=== PATIENT | female | born 1955 | race Caucasian/White ===

== ENCOUNTER 2019-12-26 19:36 | Observation (INO) ==
[2019-12-26 20:13] LABS: Basophils # (auto) 0.01 K/uL (0-0.2); Basophils % (auto) 0.2 %; Eosinophils # (auto) 0.06 K/uL (0-0.5); Eosinophils % (auto) 1.2 %; Hemoglobin 11.3 g/dL (12.0-16.0); Immature Granulocytes # (auto) 0.03 K/uL (0.00-0.02); Immature Granulocytes % (auto) 0.6 %; Lymphocytes # (auto) 1.78 K/uL (1.2-3.4); Lymphocytes % (auto) 34.6 %; Mean Corpuscular Hemoglobin 30.1 pg (25-34); Mean Corpuscular Hgb Conc 32.3 g/dL (32-36); Mean Corpuscular Volume 93.3 fL (80-100); Mean Platelet Volume 9.8 fL (7.4-10.4); Monocytes # (auto) 0.43 K/uL (0.11-0.59); Monocytes % (auto) 8.3 %; Neutrophils # (auto) 2.84 K/uL (1.4-6.5); Neutrophils % (auto) 55.1 %; Platelet Count 198 K/uL (130-400); RDW Coefficient of Variation 12.6 % (11.5-14.5); RDW Standard Deviation 42.5 fL (36.4-46.3); Red Blood Count 3.75 M/uL (4.2-5.4); White Blood Count 5.15 K/uL (4.8-10.8)
[2019-12-26 20:32] LABS: BUN Creatinine Ratio 20.7 (10-20); Blood Urea Nitrogen 21 mg/dl (7-18); Calcium 9.1 mg/dl (8.5-10.1); Carbon Dioxide 31 mmol/L (21-32); Chloride 103 mmol/L (98-107); Creatinine Clr Calc Pharmacy 60.4 ml/min; Est GFR (African American) 69.9; Est GFR (Non-African American) 60.3; Glucose 255 mg/dl (70-99); Lipase 89 U/L (73-393); Potassium 4.7 mmol/L (3.5-5.1); Sodium 136 mmol/L (136-145)
[2019-12-26 20:36] LABS: Troponin I < 0.015 ng/ml (0-0.045)
[2019-12-26 20:39] LABS: Partial Thromboplastin Ratio 0.8; Partial Thromboplastin Time 23.5 Seconds (21.0-31.0); Prothrombin Time 10.3 Seconds (9.0-12.0)
--- NOTE | 2019-12-26 23:33 | Emergency Department Note ---
History of Present Illness General Chief Complaint: Cardiac Assessment Stated Complaint: HEART ATTACK - PAIN IN L ARM - FEET/ANKLES SWOLLEN Time Seen by Provider: 12/26/19 19:48 History of Present Illness Provider Complaint: chest pain Onset (ago): day(s) 5 Duration: intermittent Onset: during rest Pain Location: substernal Pain Radiation: LUE Severity: moderate Current Pain Intensity: 0 Quality: + other (Pressure and throbbing) Relieved By: + rest Exacerbated By: + exertion Context: no recent illness, no recent surgery, no recent travel, no trauma/injury, no new medications and no history of DVT/PE Associated symptoms: + dyspnea; no syncope, no fever, no cough and no leg swelling Home Medications Home Medications Medication Instructions Recorded Confirmed Type metformin 1,000 mg PO BIDM #0 06/30/09 12/26/19 History gabapentin 300 mg PO TID 02/06/18 12/26/19 History linagliptin [Tradjenta] 5 mg PO DAILY 02/06/18 12/26/19 History sertraline 100 mg PO DAILY 02/06/18 12/26/19 History atorvastatin 80 mg PO DAILY 03/29/18 12/26/19 History lisinopril 10 mg PO DAILY 03/29/18 12/26/19 History metoprolol tartrate 50 mg PO DAILY 03/29/18 12/26/19 History aspirin 81 mg PO DAILY 12/26/19 12/26/19 History famotidine 20 mg PO BID 12/26/19 12/26/19 History insulin glargine [Lantus Solostar 10 unit SUBCUT DIRECTED 12/26/19 12/26/19 History U-100 Insulin] oxybutynin chloride 5 mg PO BID 12/26/19 12/26/19 History Allergies Allergy/AdvReac Type Severity Reaction Status Date / Time aspirin Allergy Mild UNK Unverified 03/29/18 13:30 hydrocodone Allergy Mild UNK Unverified 03/29/18 13:30 milk Allergy Unknown Unverified 12/26/19 21:19 pine Allergy Unknown Uncoded 12/26/19 21:19 Past Med/Surg History Medical History (Updated 12/26/19 @ 23:33 by Samson Richardson) Arthritis Depression Diabetes Surgical History (Updated 12/26/19 @ 23:29 by Samson Richardson) No pertinent past surgical history Family History Other Deep vein thrombosis Social History Smoking Status: Never smoker Preferred Language: Russian Communication Ability: Effective Visual Impairment: No Limitations Hearing Ability: Normal marital status: Current Living Situation: Family Current Living Situation Comment: The patient states that she lives with her child and their fianc. current occupational status: unemployed Feels Safe at Home: Yes Review of Systems A total of 10 systems reviewed and were otherwise negative Physical Exam Vital Signs Vital Signs - 24 hr 12/26/19 19:40 12/26/19 20:02 12/26/19 20:35 Temperature 36.8 C Temperature Source Oral Pulse Rate 81 Pulse Rate [Apical] 82 67 Pulse Rate from SpO2 Sensor Respiratory Rate 18 17 16 Respiratory Effort / Characteristics Non-Labored Spontaneous Non-Labored Spontaneous Respiratory Depth Normal Normal Respiratory Pattern Regular Blood Pressure 170/92 H Blood Pressure [Left Arm] 166/98 H 170/80 H Blood Pressure Mean 118 Blood Pressure Mean [Left Arm] 120 110 Pulse Oximetry 97 97 96 Oxygen Delivery Method Room Air Room Air Room Air Sepsis Recent Fever Within 48 Hours No Sepsis New/Unexplained Change in Mental Status N/A Sepsis Action Taken by Nursing No Action Required 12/26/19 21:00 12/26/19 21:30 12/26/19 22:00 Temperature Temperature Source Pulse Rate 83 68 67 Pulse Rate [Apical] Pulse Rate from SpO2 Sensor 83 67 68 Respiratory Rate 15 14 21 Respiratory Effort / Characteristics Respiratory Depth Respiratory Pattern Blood Pressure 167/99 H 170/112 H 168/88 H Blood Pressure [Left Arm] Blood Pressure Mean 126 152 106 Blood Pressure Mean [Left Arm] Pulse Oximetry 97 97 97 Oxygen Delivery Method Room Air Room Air Room Air Sepsis Recent Fever Within 48 Hours Sepsis New/Unexplained Change in Mental Status Sepsis Action Taken by Nursing 12/26/19 22:31 12/26/19 23:00 Temperature Temperature Source Pulse Rate 61 85 Pulse Rate [Apical] Pulse Rate from SpO2 Sensor 62 85 Respiratory Rate 18 20 Respiratory Effort / Characteristics Respiratory Depth Respiratory Pattern Blood Pressure 157/95 H 185/115 H Blood Pressure [Left Arm] Blood Pressure Mean 119 168 Blood Pressure Mean [Left Arm] Pulse Oximetry 98 97 Oxygen Delivery Method Room Air Room Air Sepsis Recent Fever Within 48 Hours Sepsis New/Unexplained Change in Mental Status Sepsis Action Taken by Nursing Physical Exam GENERAL: She is oriented to person, place, and time. She appears well-developed and well-nourished. She does not appear distressed. HENT: Exam performed. -Head: Normocephalic and atraumatic. -Right Ear: External ear normal. No mastoid tenderness. -Left Ear: External ear normal. No mastoid tenderness. -Mouth/Throat: The oropharynx is clear and moist. No trismus in the jaw. No dental abscesses or uvula swelling. No oropharyngeal exudate or tonsillar abscesses. EYES: Conjunctivae and EOM are normal. Pupils are equal, round, and reactive to light. Right eye exhibits no discharge. Left eye exhibits no discharge. No scleral icterus. NECK: Normal range of motion. Neck supple. No JVD present. No spinous process tenderness present. No carotid bruit present. No rigidity. No tracheal deviation and normal range of motion present. No Brudzinski's sign and no Kernig's sign noted. CV: Normal rate, regular rhythm, normal heart sounds and intact distal pulses. There is no peripheral edema. Palpable radial pulses bue. PULM/CHEST: Effort normal and breath sounds normal. No respiratory distress. No stridor. She has no wheezes. She has no rales. -Chest Wall: She exhibits no tenderness. ABD: The abdomen is soft. Bowel sounds are normal. She has no distension. No mass is present. There is no tenderness. There is no rebound, no guarding, no Villaseñor's sign and no tenderness at McBurney's point. Rovsig negative MUSC/SKEL: Normal range of motion. There is no peripheral edema, tenderness or deformity. LYMPH: No cervical adenopathy. NEURO: She is alert and oriented to person, place, and time. She has normal strength. No cranial nerve deficit or sensory deficit. Coordination and gait normal. GCS eye subscore is 4. GCS verbal subscore is 5. GCS motor subscore is 6. Cerebellar tests wnl. SKIN: Skin is warm and dry. She is not diaphoretic. PSYCH: She has a normal mood and affect. Behavior is normal. Judgment and thought content normal. Course Course 1947: The patient was evaluated in room A11. A complete history and physical exam was performed. Cardiac monitoring: An order was placed for continuous cardiac monitoring. The monitor shows a rate of 80 with sinus rhythm 2115: Vital signs stable. Labs and imaging within normal limits. Patient reports no pain at this time. Patient has moderate heart score. [facility]. Medical Decision Making Laboratory Data Result diagrams: 12/26/19 19:56 12/26/19 19:56 Labs: Lab Results 12/26/19 12/26/19 12/26/19 Range/Units 19:56 19:56 19:56 WBC 5.15 (4.8-10.8) K/uL RBC 3.75 L (4.2-5.4) M/uL Hgb 11.3 L (12.0-16.0) g/dL Hct 35.0 L (37-47) % MCV 93.3 (80-100) fL MCH 30.1 (25-34) pg MCHC 32.3 (32-36) g/dL RDW Std Deviation 42.5 (36.4-46.3) fL RDW Coeff of Ronaldo 12.6 (11.5-14.5) % Plt Count 198 (130-400) K/uL MPV 9.8 (7.4-10.4) fL Immature Gran % (Auto) 0.6 % Neut % (Auto) 55.1 % Lymph % (Auto) 34.6 % [place] % (Auto) 8.3 % Eos % (Auto) 1.2 % Baso % (Auto) 0.2 % Neut # (Auto) 2.84 (1.4-6.5) K/uL Lymph # (Auto) 1.78 (1.2-3.4) K/uL [place] # (Auto) 0.43 (0.11-0.59) K/uL Eos # (Auto) 0.06 (0-0.5) K/uL Baso # (Auto) 0.01 (0-0.2) K/uL Immature Gran # (Auto) 0.03 H (0.00-0.02) K/uL PT 10.3 (9.0-12.0) Seconds INR 1.0 (0.9-1.1) APTT 23.5 (21.0-31.0) Seconds PTT Ratio 0.8 Sodium 136 (136-145) mmol/L Potassium 4.7 (3.5-5.1) mmol/L Chloride 103 (98-107) mmol/L Carbon Dioxide 31 (21-32) mmol/L Anion Gap 2.0 L (3-11) BUN 21 H (7-18) mg/dl Creatinine 1.00 (0.6-1.2) mg/dl Est Cr Clr Drug Dosing 60.4 ml/min Est GFR ( Amer) 69.9 Est GFR (Non-Af Amer) 60.3 BUN/Creatinine Ratio 20.7 H (10-20) Glucose 255 H (70-99) mg/dl Calcium 9.1 (8.5-10.1) mg/dl Troponin I < 0.015 (0-0.045) ng/ml Lipase 89 (73-393) U/L Imaging Data Chest x-ray: My impression: Chest x-ray negative. Airway clear. No pneumothorax. No consolidation. No cardiomegaly or cephalization.. No free air under the elva phragm. No fractures of the skeletal structures. ECG Data Indication: chest pain Rate (beats per minute): 83 Rhythm: normal sinus Findings: no ST depression and no ST elevation Additional Comments: ME QRS and QTc intervals within normal limits MDM Narrative 1947: The patient was evaluated in room A11. A complete history and physical exam was performed. Cardiac monitoring: An order was placed for continuous cardiac monitoring. The monitor shows a rate of 80 with sinus rhythm 2114: Vital signs stable. Labs and imaging within normal limits. Patient reports no pain at this time. Patient has moderate heart score. Patient will be admitted to the [facility] hospitalist service. Dr. Wakefield notified. Impression & Plan Chest pain Discharge Plan Visit Data Chief Complaint: Cardiac Assessment Stated Complaint: HEART ATTACK - PAIN IN L ARM - FEET/ANKLES SWOLLEN ED Provider: Samson Richardson Discharge Problem: Chest pain Patient Disposition: Being Evaluated by Hospitalist Forms Stand Alone Forms: My [facility] [employer] Prescriptions Prescriptions: No Action metformin 1,000 mg Tablet 1,000 mg PO BIDM Qty: 0 RF: 0 atorvastatin 80 mg Tablet 80 mg PO DAILY RF: 0 lisinopril 10 mg Tablet 10 mg PO DAILY RF: 0 metoprolol tartrate 50 mg tablet 50 mg PO DAILY RF: 0 aspirin 81 mg Tablet,Delayed Release (Dr/Ec) 81 mg PO DAILY RF: 0 famotidine 20 mg Tablet 20 mg PO BID RF: 0 oxybutynin chloride 5 mg Tablet 5 mg PO BID RF: 0 Lantus Solostar U-100 Insulin 100 unit/mL (3 mL) insulin pen 10 unit SUBCUT DIRECTED RF: 0 gabapentin 300 mg capsule 300 mg PO TID RF: 0 sertraline 50 mg tablet 100 mg PO DAILY RF: 0 Tradjenta 5 mg tablet 5 mg PO DAILY RF: 0 Referrals Referrals: Hannah Ceja PA-C [Primary Care Provider] - Discharge Problem: Chest pain Qualifiers: Chest pain type: unspecified Qualified Code(s): R07.9 - Chest pain, unspecified
[2019-12-27] MEDS ORDERED: ACETAMINOPHEN 325 MG TAB PO PRN (02:52)
[2019-12-27] MEDS ORDERED: POLYETHYLENE (MIRALAX) 17 GM PACK PO PRN (02:52)
[2019-12-27] MEDS ORDERED: NITROGLYCERIN SL 0.4 MG/TAB TAB SL PRN (02:52)
[2019-12-27] MEDS ORDERED: ONDANSETRON INJ 2 MG/ML 2 ML VIAL IV PRN (02:52)
[2019-12-27] MEDS ORDERED: DEXTROSE 50% 50 ML SYRINGE IV PRN (03:00)
[2019-12-27] MEDS ORDERED: GLUCAGON FOR INJ 1 MG VIAL SQ PRN (03:00)
[2019-12-27] MEDS ORDERED: GLUCOSE 10 TABS/TUBE PO PRN (03:00)
[2019-12-27] MEDS ORDERED: GLUCOSE 40% GEL 15 GM TUBE PO PRN (03:00)
[2019-12-27] MEDS ORDERED: CARBOHYDRATES FOR HYPOGLYCEMIA PO PRN (03:00)
--- NOTE | 2019-12-27 03:28 | History and Physical Report ---
DATE OF ADMISSION: 12/27/2019 CHIEF COMPLAINT: Chest pain, dyspnea on exertion. HISTORY OF PRESENT ILLNESS: This is a 64-year-old female with past medical history significant for type 2 diabetes, hyperlipidemia, obstructive sleep apnea, hypertension, CAD, GERD, female stress incontinence, hard of hearing, depression, who lives with her , presents with chest pain. The patient says since last 5 days she is having chest pain, sharp pain going to left arm on and off, sometimes severe, seemed to get worse with exertion, somewhat better with resting. Five days ago, she walked up 2 blocks and when she came back she was very short of breath and she also had some chest pain at that time and also in the last few days in the nighttime, when she lies flat, she is having cough and she has to use pillow.Yesterday she checked her weight and she gained about 11 pounds and she has some swelling in the legs, which prompted her to come to the ER. In the ER, her initial workup was negative. Her EKG, chest x-rays and troponins are negative. Currently resting comfortably and hemodynamically stable. Denies any headache, no blurred visions, no earache, no runny nose, no sore throat, no cough. Currently, no shortness of breath, no nausea, no vomiting, no sweating, no dizziness, no abdominal pain. Normal bowel and bladder movements. No rash. Ambulates okay. ALLERGIES: ASPIRIN, VICODIN, MILK, PINE. PAST MEDICAL HISTORY: As mentioned above. PAST SURGICAL HISTORY: Carpal tunnel surgery, left heart catheterization, ligation of oviducts, plantar partial fasciotomy, appendectomy, removal of the heel spur, cholecystectomy, trigger finger release, total abdominal hysterectomy with removal of tubes. MEDICATIONS: The patient is on aspirin 81 mg p.o. daily, atorvastatin 40 mg p.o. daily, famotidine 20 mg p.o. b.i.d., gabapentin 300 mg p.o. t.i.d., Lantus 10 units as directed, Tradjenta 5 mg p.o. daily, lisinopril 10 mg p.o. daily, metformin 1000 mg p.o. b.i.d., metoprolol tartrate 50 mg p.o. b.i.d., oxybutynin 5 mg p.o. daily, Zoloft 100 mg p.o. daily. FAMILY HISTORY: Significant for father has hypertension, heart disorder, hearing loss, diabetes; mother has breast cancer, diabetes; brother, heart disorder. SOCIAL HISTORY: , lives with her . Former smoker, quit in 1977, smoked 2 packs a day for 20 years. No alcohol use, no drug use. REVIEW OF SYSTEMS: As per HPI. Rest of the review of systems negative. PHYSICAL EXAMINATION: GENERAL: The patient is of moderate build, not in acute distress. VITAL SIGNS: Temperature 36.8, pulse 65, respiratory rate 17, blood pressure 179/102, oxygen 95% on room air. HEENT: No pallor, no icterus. Pupils equal, round, and reactive to light. NECK: No JVD, no neck masses. CARDIOVASCULAR: S1, S2 heard. Regular rate and rhythm, no murmur, no gallop. RESPIRATORY SYSTEM: Normal AP diameter. No accessory muscle use. No wheezing, no crackles. ABDOMEN: Soft, bowel sounds present, nontender. No distention. CENTRAL NERVOUS SYSTEM: Cranial nerves II-XII grossly intact. Nonfocal. EXTREMITIES: No edema, no erythema. LABORATORY DATA: WBC 5.1, hemoglobin 11.3, hematocrit 35, platelets 198. PT 10.3, INR 1, APTT 23.5. Sodium 136, potassium 4.7, chloride 103, bicarbonate 31, BUN 21, creatinine 1, serum glucose 255, calcium 9.1. Troponin I less than 0.015. Lipase 89. IMAGING DATA: Chest x-ray, no acute findings. EKG: Normal sinus rhythm, rate of 83, left axis deviation. No significant change was found. ASSESSMENT AND PLAN: This is a 64-year-old female who presents with ongoing chest pain and also shortness of breath on exertion and weight gain. 1. Chest pain, rule out acute coronary syndrome. Risk factors of diabetes, hypertension, age, hyperlipidemia. The patient had cardiac catheterization in 2012, seems to be okay. We will follow serial enzymes, echocardiogram, keep her n.p.o. and consult cardiology in the a.m. for further recommendations. 2. Shortness of breath on exertion and weight gain and lower extremity edema. Chest x-ray looks fine and she is saturating okay. We will follow the echocardiogram report and await cardiac input. 3. Diabetes. Hold p.o. medications, placed on Lantus 5 units daily, insulin sliding scale. Follow hemoglobin A1c levels, follow the blood sugars. Currently n.p.o. 4. Gastroesophageal reflux disease. Continue famotidine. 5. Hyperlipidemia. Continue statin. 6. Hypertension. Continue lisinopril and metoprolol. Will follow the blood pressure. 7. Depression. Continue Zoloft. 8. Obstructive sleep apnea. CPAP at bedtime. 9. Female stress incontinence, on Ditropan. 10. Deep venous thrombosis prophylaxis, sequential compression devices for now. 11. Disposition: Closely monitor in the tele. Level 1 full code. Expect to discharge home and follow with family doctor. ANA PAULA
[2019-12-27 05:14] LABS: Basophils # (auto) 0.01 K/uL (0-0.2); Basophils % (auto) 0.2 %; Eosinophils # (auto) 0.06 K/uL (0-0.5); Hematocrit (blood only) 32.5 % (37-47); Hemoglobin 10.8 g/dL (12.0-16.0); Immature Granulocytes # (auto) 0.02 K/uL (0.00-0.02); Immature Granulocytes % (auto) 0.3 %; Lymphocytes # (auto) 2.12 K/uL (1.2-3.4); Mean Corpuscular Hemoglobin 30.6 pg (25-34); Mean Corpuscular Hgb Conc 33.2 g/dL (32-36); Mean Corpuscular Volume 92.1 fL (80-100); Monocytes # (auto) 0.44 K/uL (0.11-0.59); Monocytes % (auto) 7.7 %; Neutrophils # (auto) 3.08 K/uL (1.4-6.5); Neutrophils % (auto) 53.8 %; Platelet Count 170 K/uL (130-400); RDW Coefficient of Variation 12.5 % (11.5-14.5); RDW Standard Deviation 42.3 fL (36.4-46.3); Red Blood Count 3.53 M/uL (4.2-5.4); White Blood Count 5.73 K/uL (4.8-10.8)
[2019-12-27 05:39] LABS: BUN Creatinine Ratio 20.8 (10-20); Blood Urea Nitrogen 16 mg/dl (7-18); Carbon Dioxide 29 mmol/L (21-32); Chloride 107 mmol/L (98-107); Creatinine Clr Calc Pharmacy 77.4 ml/min; Est GFR (African American) 95.9; Est GFR (Non-African American) 82.8; Glucose 222 mg/dl (70-99); Magnesium 1.6 mg/dl (1.8-2.4); Potassium 4.6 mmol/L (3.5-5.1); Sodium 140 mmol/L (136-145)
[2019-12-27 05:43] LABS: Troponin I < 0.015 ng/ml (0-0.045)
[2019-12-27 07:27] LABS: Estimated Average Glucose 237 mg/dl; Hemoglobin A1C 9.9 % (4.5-5.6)
--- NOTE | 2019-12-27 07:31 | XRay Report ---
TWO VIEW CHEST CLINICAL HISTORY: Atypical chest pain. FINDINGS: PA and lateral chest radiographs are compared to study dated 03/29/2018. The cardiomediastina l silhouette is unremarkable. There is mild bibasilar atelectasis. The lungs and pleural spaces are o therwise clear. There is no pneumothorax. The skeletal structures are osteopenic. The bony thorax lotus ears intact. Degenerative change and mild hyperkyphosis is noted in the thoracic spine. Cholecystecto my clips are seen in the right upper quadrant. IMPRESSION: No active disease in the chest. ACT 112: Negative or not required by law. Electronically signed by: Jorge Crowe M.D. 12/27/2019 7:30 AM
--- NOTE | 2019-12-27 08:29 | Cardiology Consultation ---
Date of Consultation December 27, 2019 Assessment & Plan (1) Hypertension: Patient presenting with uncontrolled hypertension, possibly contributing to her worsening dyspnea over the last few weeks. She does not monitor BP at home. Has been compliant with home dose lisinopril Add HCTZ 12.5 mg daily in addition to lisinopril. Monitor BP and BMP in AM (2) Chest pain: Atypical in nature. non exertional. Negative troponin x3. Normal EKG without acute ischemic changes Recommend treatment of underlying hypertension, anemia. Consider future ischemic work up given her underlying cardiac risk factors once hypertension is treated and anemia evaluated (3) Dyspnea: Possibly multifactorial with underlying uncontrolled hypertension and anemia. (4) Anemia: No recent outpatient CBC. 2019 - Hbg was 12-13. Currently this AM, Hbg trended down to 10.8. She has previously declined colonoscopy No signs/symptoms of GI bleed. Iron studies and FOBT ordered for further evaluation Case discussed in detail with Dr. Dsouza. Echocardiogram pending to evaluate structural heart disease. Monitor BP with addition of HCTZ. Await anemia work up. No indication for stress testing at this time. Will follow. Supervising Physician Co-Signing Physician Notes I have discussed the case with Melo, reviewed the medical record and examined the patient. I agree with the plan as outlined. With the patient's anemia and atypical chest pain, I believe a GI evaluation would be helpful. History of Present Illness Reason for Consultation: dyspnea; chest pain; edema; HTN Requesting Physician: Dr. Wakefield Attending Physician: Dr. Dsouza History of Present Illness Patient is a 64 year old female with a past medical history significant for diabetes mellitus, hypertension, dyslipidemia, DAVID. She reportedly had an abnormal dobutamine stress echo in 2012 for atypical chest pain. She went on to have a cardiac catheterization at [facility] in August 2012 which demonstrated only mild luminal irregularities. She denies other cardiac history. Patient admitted to [facility] yesterday with complaints of intermittent chest pain described as sharp/stabbing pains radiating to her left arm not related to exertion. Comes and goes lasting < 2 minutes each time over the last few weeks. She also reports worsening SOB with activities such as walking 1-2 blocks to the grocery store. [place] significantly dyspneic and had to stop and catch her breath. She denies recent illness, fever, worsening cough, chills. She admits to chronic orthopnea, which is unchanged. She has a history of DAVID but admits to non compliance with CPAP intermittently. She also reports worsening lower extremity edema over the last few days/weeks. she reports she suddenly gained approx 11 lbs. No changes to her diet. She notes increased edema in her feet and legs. Due to all of these symptoms, and not feeling well, she presented to the ER last evening for further evaluation. Upon arrival she was found to be significantly hypertensive. She was not hypoxic on RA. EKG demonstrated NSR without acute changes. Troponin negative x3. She was noted to be anemic with hbg 11.3 on admission, down to 10.8 this morning. She denies symptoms of melena or hematochezia or changes to her BM's/stool. She reports no recent colonoscopy and it appears she has declined evaluation per outpatient records. At time of consult, patient resting in bed comfortably. No current chest pain or SOB noted. She feels her edema has improved since admission. No pitting edema noted. BP remains elevated this morning. No headaches or vision changes. No current cough, fever, chills. No palpitations or tachypalpitations. No syncope or near syncope. BP remains elevated post AM home dose of lisinopril this morning. Allergies Allergy/AdvReac Type Severity Reaction Status Date / Time aspirin Allergy Mild UNK Unverified 03/29/18 13:30 hydrocodone Allergy Mild UNK Unverified 03/29/18 13:30 milk Allergy Unknown Unverified 12/26/19 21:19 pine Allergy Unknown Uncoded 12/26/19 21:19 Home Medications Home Medications Medication Instructions Recorded Confirmed Type metformin 1,000 mg PO BIDM #0 06/30/09 12/26/19 History gabapentin 300 mg PO TID 02/06/18 12/26/19 History linagliptin [Tradjenta] 5 mg PO DAILY 02/06/18 12/26/19 History sertraline 100 mg PO DAILY 02/06/18 12/26/19 History atorvastatin 80 mg PO DAILY 03/29/18 12/26/19 History lisinopril 10 mg PO DAILY 03/29/18 12/26/19 History metoprolol tartrate 50 mg PO BID 03/29/18 12/27/19 History aspirin 81 mg PO DAILY 12/26/19 12/26/19 History famotidine 20 mg PO BID 12/26/19 12/26/19 History insulin glargine [Lantus Solostar 10 unit SUBCUT DIRECTED 12/26/19 12/26/19 History U-100 Insulin] oxybutynin chloride 5 mg PO DAILY 12/26/19 12/27/19 History Patient History Medical History (Updated 12/27/19 @ 11:16 by Carole lAejo PA-C) Arthritis Depression Diabetes Surgical History (Updated 12/26/19 @ 23:29 by Samson Richardson) No pertinent past surgical history Family History Other Deep vein thrombosis Social History Smoking Status: Never smoker Hx Alcohol Use: No Hx Substance Use: No Preferred Language: Frisian Communication Ability: Effective Visual Impairment: No Limitations Hearing Ability: Normal Beliefs That Will Affect Care: None marital status: Current Living Situation: Spouse Current Living Situation Comment: The patient states that she lives with her child and their fianc. current occupational status: unemployed Other Information That Helps Us Care for You: No Feels Safe at Home: Yes Assistive Devices: Glasses Assistive Devices Comment: Dentures are at home. Review of Systems Review of Systems: All systems reviewed & are unremarkable except as noted in HPI & below Physical Exam Constitutional: WD/WN, vitals as above average body habitus; no acute distress Neck: normal visual inspection Respiratory: normal respiratory effort, lungs clear to auscultation Cardiovascular: Rate/Rhythm: regular rate and regular rhythm Heart Sounds: no murmur Vessels: no JVD Extremities: + pedal edema (trace ankle edema, non pitting) and + varicosities Gastrointestinal (Abdomen): normal bowel sounds, soft, nontender, no hepatosplenomegaly Neurologic: PERRL, EOMI, accommodation nl, no face palsy, no dysarthria Psychiatric: A+Ox3, euthymic affect Results & Data ([place]) Vital Signs (Past 12 Hours) Vital Signs Temp Pulse Pulse Resp BP BP Pulse Ox 12/27/19 08:11 36.9 C 69 19 175/90 H 97 12/27/19 04:06 70 12/27/19 02:53 36.6 C 72 190/88 H 98 12/27/19 02:52 36.6 C 71 18 154/87 H 97 12/27/19 02:30 78 17 169/92 H 94 12/27/19 02:00 76 18 177/94 H 95 12/27/19 01:30 65 17 179/102 H 95 12/27/19 01:00 64 15 173/90 H 96 12/27/19 00:30 77 14 169/98 H 96 12/27/19 00:11 76 18 181/89 H 96 12/27/19 00:00 63 19 97 12/26/19 23:30 96 12/26/19 23:00 85 20 185/115 H 97 12/26/19 22:31 61 18 157/95 H 98 12/26/19 22:00 67 21 168/88 H 97 12/26/19 21:30 68 14 170/112 H 97 12/26/19 21:00 83 15 167/99 H 97 12/26/19 20:35 67 16 170/80 H 96 Laboratory Results 12/27/19 12/27/19 12/27/19 Range/Units 07:37 05:00 05:00 WBC (4.8-10.8) K/uL RBC (4.2-5.4) M/uL Hgb (12.0-16.0) g/dL Hct (37-47) % MCV (80-100) fL MCH (25-34) pg MCHC (32-36) g/dL RDW Std Deviation (36.4-46.3) fL RDW Coeff of Ronaldo (11.5-14.5) % Plt Count (130-400) K/uL MPV (7.4-10.4) fL Immature Gran % (Auto) % Neut % (Auto) % Lymph % (Auto) % Clare % (Auto) % Eos % (Auto) % Baso % (Auto) % Neut # (Auto) (1.4-6.5) K/uL Lymph # (Auto) (1.2-3.4) K/uL Clare # (Auto) (0.11-0.59) K/uL Eos # (Auto) (0-0.5) K/uL Baso # (Auto) (0-0.2) K/uL Immature Gran # (Auto) (0.00-0.02) K/uL PT (9.0-12.0) Seconds INR (0.9-1.1) APTT (21.0-31.0) Seconds PTT Ratio Sodium 140 (136-145) mmol/L Potassium 4.6 (3.5-5.1) mmol/L Chloride 107 (98-107) mmol/L Carbon Dioxide 29 (21-32) mmol/L Anion Gap 4.0 (3-11) BUN 16 (7-18) mg/dl Creatinine 0.77 (0.6-1.2) mg/dl Est Cr Clr Drug Dosing 77.4 ml/min Est GFR ( Amer) 95.9 Est GFR (Non-Af Amer) 82.8 BUN/Creatinine Ratio 20.8 H (10-20) Glucose 222 H (70-99) mg/dl POC Glucose 217 H (70-99) mg/dl Estimat Average Glucose 237 mg/dl Hemoglobin A1c 9.9 H (4.5-5.6) % Calcium 9.0 (8.5-10.1) mg/dl Magnesium 1.6 L (1.8-2.4) mg/dl Troponin I < 0.015 (0-0.045) ng/ml Lipase (73-393) U/L 12/27/19 12/26/19 12/26/19 Range/Units 05:00 19:56 19:56 WBC 5.73 (4.8-10.8) K/uL RBC 3.53 L (4.2-5.4) M/uL Hgb 10.8 L (12.0-16.0) g/dL Hct 32.5 L (37-47) % MCV 92.1 (80-100) fL MCH 30.6 (25-34) pg MCHC 33.2 (32-36) g/dL RDW Std Deviation 42.3 (36.4-46.3) fL RDW Coeff of Ronaldo 12.5 (11.5-14.5) % Plt Count 170 (130-400) K/uL MPV 10.0 (7.4-10.4) fL Immature Gran % (Auto) 0.3 % Neut % (Auto) 53.8 % Lymph % (Auto) 37.0 % Clare % (Auto) 7.7 % Eos % (Auto) 1.0 % Baso % (Auto) 0.2 % Neut # (Auto) 3.08 (1.4-6.5) K/uL Lymph # (Auto) 2.12 (1.2-3.4) K/uL Clare # (Auto) 0.44 (0.11-0.59) K/uL Eos # (Auto) 0.06 (0-0.5) K/uL Baso # (Auto) 0.01 (0-0.2) K/uL Immature Gran # (Auto) 0.02 (0.00-0.02) K/uL PT 10.3 (9.0-12.0) Seconds INR 1.0 (0.9-1.1) APTT 23.5 (21.0-31.0) Seconds PTT Ratio 0.8 Sodium 136 (136-145) mmol/L Potassium 4.7 (3.5-5.1) mmol/L Chloride 103 (98-107) mmol/L Carbon Dioxide 31 (21-32) mmol/L Anion Gap 2.0 L (3-11) BUN 21 H (7-18) mg/dl Creatinine 1.00 (0.6-1.2) mg/dl Est Cr Clr Drug Dosing 60.4 ml/min Est GFR ( Amer) 69.9 Est GFR (Non-Af Amer) 60.3 BUN/Creatinine Ratio 20.7 H (10-20) Glucose 255 H (70-99) mg/dl POC Glucose (70-99) mg/dl Estimat Average Glucose mg/dl Hemoglobin A1c (4.5-5.6) % Calcium 9.1 (8.5-10.1) mg/dl Magnesium (1.8-2.4) mg/dl Troponin I < 0.015 (0-0.045) ng/ml Lipase 89 (73-393) U/L 12/26/19 Range/Units 19:56 WBC 5.15 (4.8-10.8) K/uL RBC 3.75 L (4.2-5.4) M/uL Hgb 11.3 L (12.0-16.0) g/dL Hct 35.0 L (37-47) % MCV 93.3 (80-100) fL MCH 30.1 (25-34) pg MCHC 32.3 (32-36) g/dL RDW Std Deviation 42.5 (36.4-46.3) fL RDW Coeff of Ronaldo 12.6 (11.5-14.5) % Plt Count 198 (130-400) K/uL MPV 9.8 (7.4-10.4) fL Immature Gran % (Auto) 0.6 % Neut % (Auto) 55.1 % Lymph % (Auto) 34.6 % Clare % (Auto) 8.3 % Eos % (Auto) 1.2 % Baso % (Auto) 0.2 % Neut # (Auto) 2.84 (1.4-6.5) K/uL Lymph # (Auto) 1.78 (1.2-3.4) K/uL Clare # (Auto) 0.43 (0.11-0.59) K/uL Eos # (Auto) 0.06 (0-0.5) K/uL Baso # (Auto) 0.01 (0-0.2) K/uL Immature Gran # (Auto) 0.03 H (0.00-0.02) K/uL PT (9.0-12.0) Seconds INR (0.9-1.1) APTT (21.0-31.0) Seconds PTT Ratio Sodium (136-145) mmol/L Potassium (3.5-5.1) mmol/L Chloride (98-107) mmol/L Carbon Dioxide (21-32) mmol/L Anion Gap (3-11) BUN (7-18) mg/dl Creatinine (0.6-1.2) mg/dl Est Cr Clr Drug Dosing ml/min Est GFR ( Amer) Est GFR (Non-Af Amer) BUN/Creatinine Ratio (10-20) Glucose (70-99) mg/dl POC Glucose (70-99) mg/dl Estimat Average Glucose mg/dl Hemoglobin A1c (4.5-5.6) % Calcium (8.5-10.1) mg/dl Magnesium (1.8-2.4) mg/dl Troponin I (0-0.045) ng/ml Lipase (73-393) U/L Diagnostic Findings Echocardiogram completed - results pending EKG on admission reviewed: Normal sinus rhythm Left axis deviation Abnormal ECG When compared with ECG of 29-MAR-2018 13:46, No significant change was found Chest xray this admission: IMPRESSION: No active disease in the chest. Telemetry reviewed: NSR, no arrhythmias. Prior cath report reviewed, dated August 2012: CONCLUSIONS Comments: - Hemodynamics Left Heart: The systemic blood pressure is low. The left ventricular end diastolic pressure is normal. - Coronary Arteries: The coronary arteries have mild luminal irregularities. Medications Administered Medications metformin 1,000 mg PO BIDM #0 06/30/09 [History Confirmed 12/26/19] gabapentin 300 mg PO TID 02/06/18 [History Confirmed 12/26/19] linagliptin [Tradjenta] 5 mg PO DAILY 02/06/18 [History Confirmed 12/26/19] sertraline 100 mg PO DAILY 02/06/18 [History Confirmed 12/26/19] atorvastatin 80 mg PO DAILY 03/29/18 [History Confirmed 12/26/19] lisinopril 10 mg PO DAILY 03/29/18 [History Confirmed 12/26/19] metoprolol tartrate 50 mg PO BID 03/29/18 [History Confirmed 12/27/19] aspirin 81 mg PO DAILY 12/26/19 [History Confirmed 12/26/19] famotidine 20 mg PO BID 12/26/19 [History Confirmed 12/26/19] insulin glargine [Lantus Solostar U-100 Insulin] 10 unit SUBCUT DIRECTED 12/26/19 [History Confirmed 12/26/19] oxybutynin chloride 5 mg PO DAILY 12/26/19 [History Confirmed 12/27/19] Home Medications Acetaminophen (Acetaminophen 325 Mg Tab) 650 mg PO Q4H PRN PRN Reason: Pain or Fever Stop: 01/26/20 02:51 Aspirin (Aspirin 81 Mg Ectab) 81 mg PO DAILY GLYNN Stop: 01/26/20 08:59 Atorvastatin Calcium (Atorvastatin 40 Mg Tab) 80 mg PO DAILY GLYNN Stop: 01/26/20 08:59 Dextrose (Dextrose 50% 50 Ml Syringe) 25 - 50 ml IV UD PRN; Protocol PRN Reason: Hypoglycemia Protocol Stop: 01/26/20 02:59 Famotidine (Famotidine 20 Mg Tab) 20 mg PO BID GLYNN Stop: 01/26/20 08:59 Gabapentin (Gabapentin 300 Mg Cap) 300 mg PO TID GLYNN Stop: 01/26/20 08:59 Glucagon (Glucagon For Inj 1 Mg Vial) 1 mg SQ UD PRN; Protocol PRN Reason: Hypoglycemia Protocol Stop: 01/26/20 02:59 Glucose (Glucose 40% Gel 15 Gm Tube) 15 - 30 gm PO UD PRN; Protocol PRN Reason: Hypoglycemia Protocol Stop: 01/26/20 02:59 Glucose (Glucose 10 Tabs/Tube) 4 - 8 tabs PO UD PRN; Protocol PRN Reason: Hypoglycemia Protocol Stop: 01/26/20 02:59 Insulin Aspart (Insulin Aspart 100 Units/Ml 3 Ml Pen) 0 units SC ACHS [facility] Stop: 01/26/20 07:29 Insulin Glargine (Insulin Glargine Solostar 100 Units/Ml 3 Ml Pen) 5 units SC DAILY [facility] Stop: 01/26/20 08:59 Lisinopril (Lisinopril 10 Mg Tab) 10 mg PO DAILY [facility] Stop: 01/26/20 08:59 Metoprolol Tartrate (Metoprolol Tartrate 50 Mg Tab) 50 mg PO BID [facility] Stop: 01/26/20 08:59 Miscellaneous (Carbohydrates For Hypoglycemia ) 15 - 30 gm PO UD PRN PRN Reason: Hypoglycemia Treatment Stop: 01/26/20 02:59 Nitroglycerin (Nitroglycerin Sl 0.4 Mg/Tab Tab) 0.4 mg SL UD PRN PRN Reason: Chest Pain Stop: 01/26/20 02:51 Ondansetron HCl (Ondansetron Inj 2 Mg/Ml 2 Ml Vial) 4 mg IV Q6H PRN PRN Reason: Nausea Stop: 01/26/20 02:51 Oxybutynin Chloride (Oxybutynin Chloride 5 Mg Tab) 5 mg PO DAILY [facility] Stop: 01/26/20 08:59 Polyethylene Glycol (Polyethylene (Miralax) 17 Gm Pack) 17 gm PO DAILY PRN PRN Reason: Constipation Stop: 01/26/20 02:51 Sertraline HCl (Sertraline Hcl 100 Mg Tablet) 100 mg PO DAILY [facility] Stop: 01/26/20 08:59 (1) Anemia Anemia type: unspecified type Qualified Code(s): D64.9 - Anemia, unspecified (2) Dyspnea Dyspnea type: dyspnea on exertion Qualified Code(s): R06.00 - Dyspnea, unspecified (3) Chest pain Chest pain type: unspecified Qualified Code(s): R07.9 - Chest pain, unspecified (4) Hypertension Hypertension type: essential hypertension Qualified Code(s): I10 - Essential (primary) hypertension
[2019-12-27] MEDS ORDERED: PERFLUTREN LIPID MICROSPHERE (DEFINITY) IV ONE (08:45)
[2019-12-27] MEDS: FAMOTIDINE 20 MG TAB PO SCH ×2 (08:46→20:57)
[2019-12-27] MEDS: GABAPENTIN 300 MG CAP PO SCH ×3 (08:46→20:57)
[2019-12-27] MEDS: lisinopriL 10 MG TAB PO SCH (08:46)
[2019-12-27] MEDS: ATORVASTATIN 40 MG TAB PO SCH (08:46)
[2019-12-27] MEDS: SERTRALINE HCL 100 MG TABLET PO SCH (08:46)
[2019-12-27] MEDS: METOPROLOL TARTRATE 50 MG TAB PO SCH ×2 (08:47→20:57)
[2019-12-27] MEDS: OXYBUTYNIN CHLORIDE 5 MG TAB PO SCH (08:47)
[2019-12-27] MEDS: INSULIN ASPART 100 UNITS/ML 3 ML PEN SC SCH ×4 (08:47→21:02)
[2019-12-27] MEDS: ASPIRIN 81 MG ECTAB PO SCH (08:47)
[2019-12-27] MEDS: INSULIN GLARGINE SOLOSTAR 100 UNITS/ML 3 ML PEN SC SCH (08:48)
[2019-12-27] MEDS: hydroCHLOROthiazide 25 MG TAB PO SCH (10:28)
[2019-12-27 12:09] LABS: Ferritin 207.9 ng/ml (8-388); Iron 61 mcg/dl (35-150); NT Pro B Type Natriuretic Pept 197 pg/ml (0-900); Total Iron Binding Capacity 285 mcg/dl (250-450); Troponin I < 0.015 ng/ml (0-0.045)
[2019-12-27 12:10] LABS: Folate (Folic Acid) 15.64 ng/ml (>5.38)
--- NOTE | 2019-12-27 16:50 | Electrocardiogram Report ---
Test Reason : Blood Pressure : / mmHG Vent. Rate : 083 BPM Atrial Rate : 083 BPM P-R Int : 118 ms QRS Dur : 104 ms QT Int : 378 ms P-R-T Axes : 040 -41 019 degrees QTc Int : 444 ms Normal sinus rhythm Left axis deviation Abnormal ECG When compared with ECG of 29-MAR-2018 13:46, No significant change was found Confirmed by Juan Francisco Munroe ([id number]) on 12/27/2019 4:50:16 PM Referred By: REFERRED SELF Confirmed By:Immanuel Munroe
--- NOTE | 2019-12-27 17:40 | Hospitalist Progress Note ---
Date of Service December 27, 2019 Assessment & Plan (1) Chest pain: No evidence of acute coronary symptoms, Troponin negative, EKG shows no ischemic change Appreciate cardiology Outpatient cardiac stress test recommended Hypertensive urgency, Possible contributed to the presenting symptoms BP meds adjusted by cardiology-was on lisinopril, added HCTZ Continue to monitor Anemia: Sign of symptoms of GI bleed, anemia of chronic disease? Need outpatient colonoscopy Follow report of iron studies, fecal occult blood test Admission and Anticipated Discharge Date Admission Date: December 27, 2019 Subjective No complaint of chest pain, no shortness of breath, continue to feel well Review of Systems Review of Systems: All systems reviewed & are unremarkable except as noted in HPI & below Physical Exam Constitutional: WD/WN, vitals as above Eyes: PERRL, conjunctivae normal, anicteric sclerae ENMT: external ear and nose normal, oropharynx normal Neck: trachea midline, no thyromegaly Respiratory: normal respiratory effort, lungs clear to auscultation Cardiovascular: RRR, no murmur, no edema Gastrointestinal (Abdomen): normal bowel sounds, soft, nontender, no hepatosplenomegaly Musculoskeletal: no cyanosis or clubbing, extremities motor strength 5/5 Skin: no rashes, warm and dry Neurologic: PERRL, EOMI, accommodation nl, no face palsy, no dysarthria Psychiatric: A+Ox3, euthymic affect Results & Data Results & Data ([facility]) Vital Signs (Past 12 Hours) Vital Signs Temp Pulse Pulse Resp BP BP Pulse Ox 12/27/19 17:06 62 12/27/19 15:40 36.7 C 73 18 124/71 95 12/27/19 11:58 37.1 C 69 19 156/81 H 99 12/27/19 09:29 186/89 H 178/89 H 12/27/19 08:11 36.9 C 69 19 175/90 H 97 (1) Chest pain Chest pain type: unspecified Qualified Code(s): R07.9 - Chest pain, unspecified
[2019-12-28] MEDS: METOPROLOL TARTRATE 50 MG TAB PO SCH (08:02)
[2019-12-28] MEDS: GABAPENTIN 300 MG CAP PO SCH ×2 (08:02→12:55)
[2019-12-28] MEDS: ASPIRIN 81 MG ECTAB PO SCH (08:03)
[2019-12-28] MEDS: SERTRALINE HCL 100 MG TABLET PO SCH (08:03)
[2019-12-28] MEDS: FAMOTIDINE 20 MG TAB PO SCH (08:03)
[2019-12-28] MEDS: ATORVASTATIN 40 MG TAB PO SCH (08:03)
[2019-12-28] MEDS: hydroCHLOROthiazide 25 MG TAB PO SCH (08:03)
[2019-12-28] MEDS: INSULIN ASPART 100 UNITS/ML 3 ML PEN SC SCH ×2 (08:03→12:07)
[2019-12-28] MEDS: lisinopriL 10 MG TAB PO SCH (08:03)
[2019-12-28] MEDS: OXYBUTYNIN CHLORIDE 5 MG TAB PO SCH (08:03)
[2019-12-28] MEDS: INSULIN GLARGINE SOLOSTAR 100 UNITS/ML 3 ML PEN SC SCH (08:04)
[2019-12-28 08:54] LABS: Basophils # (auto) 0.01 K/uL (0-0.2); Basophils % (auto) 0.2 %; Eosinophils # (auto) 0.04 K/uL (0-0.5); Eosinophils % (auto) 0.7 %; Hematocrit (blood only) 33.6 % (37-47); Hemoglobin 11.4 g/dL (12.0-16.0); Immature Granulocytes # (auto) 0.02 K/uL (0.00-0.02); Immature Granulocytes % (auto) 0.3 %; Lymphocytes % (auto) 25.8 %; Mean Corpuscular Hemoglobin 31.1 pg (25-34); Mean Corpuscular Hgb Conc 33.9 g/dL (32-36); Mean Corpuscular Volume 91.6 fL (80-100); Mean Platelet Volume 9.8 fL (7.4-10.4); Monocytes # (auto) 0.38 K/uL (0.11-0.59); Monocytes % (auto) 6.5 %; Neutrophils # (auto) 3.86 K/uL (1.4-6.5); Neutrophils % (auto) 66.5 %; Platelet Count 173 K/uL (130-400); RDW Coefficient of Variation 12.4 % (11.5-14.5); RDW Standard Deviation 41.7 fL (36.4-46.3); Red Blood Count 3.67 M/uL (4.2-5.4); White Blood Count 5.81 K/uL (4.8-10.8)
[2019-12-28 09:29] LABS: BUN Creatinine Ratio 23.7 (10-20); Calcium 9.1 mg/dl (8.5-10.1); Creatinine Clr Calc Pharmacy 66.6 ml/min; Est GFR (African American) 80.5; Est GFR (Non-African American) 69.5; Magnesium 1.6 mg/dl (1.8-2.4); Potassium 4.2 mmol/L (3.5-5.1)
[2019-12-28] MEDS ORDERED: MAGNESIUM OXIDE 400 MG TAB PO SCH (10:30)
--- NOTE | 2019-12-28 12:07 | Cardiology Progress Note ---
Date of Service December 28, 2019 Assessment & Plan (1) Hypertension: Patient presenting with uncontrolled hypertension, possibly contributing to her worsening dyspnea over the last few weeks. She does not monitor BP at home. Has been compliant with home dose lisinopril Added HCTZ 12.5 mg daily in addition to lisinopril. BP improving with additional antihypertensive. (2) Chest pain: Atypical in nature. non exertional. Negative troponin x3. Normal EKG without acute ischemic changes Echo with normal LV systolic function Recommend treatment of underlying hypertension, anemia. Consider future outpatient stress test if she has recurrent dyspnea. (3) Dyspnea: Possibly multifactorial with underlying uncontrolled hypertension and anemia. Improving (4) Anemia: No recent outpatient CBC. 2019 - Hbg was 12-13. Hbg trended down to 10.8,, now 11.4 She has previously declined colonoscopy No signs/symptoms of GI bleed. Iron studies acceptable. Recommend further evaluation and f/u with PCP. Consider outpatient colonoscopy. Case discussed in detail with Dr. Dsouza. Recommend discharge on lisinopril, hctz, metoprolol. BP improved. Echo and cardiac work up unremarkable. If she has future concerns regarding dyspnea and anemia evaluated, consider outpatient stress testing. Admission and Anticipated Discharge Date Admission Date: December 27, 2019 Supervising Physician Co-Signing Physician Notes I have discussed the case with Ted Melo, reviewed the medical record and examined the patient. I agree with the plan as outlined. Subjective Patient resting in bed comfortably. Notes improvement in her dyspnea. Edema resolved. No chest pain over the last 24 hours. BP trending down with addition of low dose hctz. Hbg improving this morning. Review of Systems Review of Systems: All systems reviewed & are unremarkable except as noted in HPI & below Physical Exam Constitutional: WD/WN, vitals as above average body habitus; no acute distress Neck: normal visual inspection Respiratory: normal respiratory effort, lungs clear to auscultation Cardiovascular: Rate/Rhythm: regular rate and regular rhythm Heart Sounds: no murmur Vessels: no JVD Extremities: + varicosities; no edema Gastrointestinal (Abdomen): normal bowel sounds, soft, nontender, no hepatosplenomegaly Musculoskeletal: no cyanosis or clubbing, extremities motor strength 5/5 Neurologic: PERRL, EOMI, accommodation nl, no face palsy, no dysarthria Psychiatric: A+Ox3, euthymic affect Results & Data ([facility]) Vital Signs (Past 12 Hours) Vital Signs Temp Pulse Pulse Resp BP BP Pulse Ox 12/28/19 10:09 129/75 12/28/19 07:44 36.5 C 65 16 150/73 H 97 12/28/19 04:54 36.7 C 58 L 18 135/69 96 (1) Anemia Anemia type: unspecified type Qualified Code(s): D64.9 - Anemia, unspecified (2) Dyspnea Dyspnea type: dyspnea on exertion Qualified Code(s): R06.00 - Dyspnea, unspecified (3) Chest pain Chest pain type: unspecified Qualified Code(s): R07.9 - Chest pain, unspecified (4) Hypertension Hypertension type: essential hypertension Qualified Code(s): I10 - Essential (primary) hypertension
--- NOTE | 2019-12-28 14:02 | Discharge Summary ---
Date of Service December 28, 2019 Admission HPI Per Admitting Provider DICTATED BY: Marty Wakefield MD DATE OF ADMISSION: 12/27/2019 CHIEF COMPLAINT: Chest pain, dyspnea on exertion. HISTORY OF PRESENT ILLNESS: This is a 64-year-old female with past medical history significant for type 2 diabetes, hyperlipidemia, obstructive sleep apnea, hypertension, CAD, GERD, female stress incontinence, hard of hearing, depression, who lives with her , presents with chest pain. The patient says since last 5 days she is having chest pain, sharp pain going to left arm on and off, sometimes severe, seemed to get worse with exertion, somewhat better with resting. Five days ago, she walked up 2 blocks and when she came back she was very short of breath and she also had some chest pain at that time and also in the last few days in the nighttime, when she lies flat, she is having cough and she has to use pillow.Yesterday she checked her weight and she gained about 11 pounds and she has some swelling in the legs, which prompted her to come to the ER. In the ER, her initial workup was negative. Her EKG, chest x-rays and troponins are negative. Currently resting comfortably and hemodynamically stable. Denies any headache, no blurred visions, no earache, no runny nose, no sore throat, no cough. Currently, no shortness of breath, no nausea, no vomiting, no sweating, no dizziness, no abdominal pain. Normal bowel and bladder movements. No rash. Ambulates okay. Principal Diagnosis Chest pain: Noncardiac, High blood pressure Anemia Discharge Exam Constitutional WD/WN, vitals as above Eyes PERRL, conjunctivae normal, anicteric sclerae ENMT external ear and nose normal, oropharynx normal Neck trachea midline, no thyromegaly Respiratory normal respiratory effort, lungs clear to auscultation Cardiovascular RRR, no murmur, no edema Gastrointestinal (Abdomen) normal bowel sounds, soft, nontender, no hepatosplenomegaly Musculoskeletal no cyanosis or clubbing, extremities motor strength 5/5 Skin no rashes, warm and dry Neurologic PERRL, EOMI, accommodation nl, no face palsy, no dysarthria Psychiatric A+Ox3, euthymic affect Discharge Data Allergies Allergy/AdvReac Type Severity Reaction Status Date / Time aspirin Allergy Mild UNK Unverified 03/29/18 13:30 hydrocodone Allergy Mild UNK Unverified 03/29/18 13:30 milk Allergy Unknown Unverified 12/26/19 21:19 pine Allergy Unknown Uncoded 12/26/19 21:19 Consultations 12/26/19 21:05 ED Decision to Admit Stat 12/27/19 02:52 Consult Case Management - Discharge Planning Routine 12/27/19 08:00 Consult Cardiology Routine Diabetes Follow up Diabetes Follow-up Needed for HgbA1c >9% Hospital Course (1) Chest pain: No complaint of chest pain or shortness of breath No evidence of acute coronary symptoms, Troponin negative, EKG shows no ischemic change Appreciate cardiology BP medication adjusted hydrochlorothiazide Outpatient cardiac stress test recommended for recurrence of symptoms Hypertensive urgency, BP improved after addition of hydrochlorothiazide Possible contributed to the presenting symptoms Anemia: Sign of symptoms of GI bleed, anemia of chronic disease? Iron studies normal, Patient had not had a colonoscopy for last 20 years, we need outpatient EGD and colonoscopy to be scheduled Medically stable to be discharged home today Total Time Total Time Spent Total Time Spent (In Minutes): 35 minutes Total Time Includes: Discharge Planning and Medication Reconciliation Discharge Plan Discharge Items Patient Disposition: Home - Home Health Services Reason For Visit: CHEST PAIN Discharge Diagnosis: Chest pain: Noncardiac, High blood pressure Anemia Activity: Resume your previous activity Non-emergency contact: Primary Care Provider Call non-emergency contact if: you have any medication questions Follow-up/Referrals: Hannah Ceja PA-C [Primary Care Provider] - (Date & Time 01/03/2020 9:20 AM Provider Hannah Ceja PA-C Department [facility] [place] ) Diet: Heart Healthy and Low Sodium (2gm) Addtl Attending Provider Instructions: Hospital follow-up with family physician in a week Recurrence of chest tightness, chest pain, he will need outpatient cardiac stress test please schedule colonoscopy and EGD as out patient through your family physician for anemia NEW MEDICATION : Hydrochlorothiazide /HCTZ 12.5 mg 1 tablet daily for high blood pressure avoid salt in food your HbA1c in > 9 which means your blood sugar level has been above the goal range you are asked to take schedule//set dose of Lantus 12 U before dinner every day ( do not use the sliding scale ) please follow with your family physician for diabetes management need referral to Diabetic /MTM clinic Pending Studies at Discharge: No Stand-Alone Forms: [facility], Smoking Cessation Medications and DC Order Prescriptions: New hydrochlorothiazide 25 mg Tablet 12.5 mg PO QAM 30 Days Qty: 15 RF: 2 Lantus Solostar U-100 Insulin 100 unit/mL (3 mL) insulin pen 12 unit SUBCUT PM Qty: 15 RF: 0 Continued metformin 1,000 mg Tablet 1,000 mg PO BIDM Qty: 0 RF: 0 atorvastatin 80 mg Tablet 80 mg PO DAILY RF: 0 lisinopril 10 mg Tablet 10 mg PO DAILY RF: 0 metoprolol tartrate 50 mg tablet 50 mg PO BID RF: 0 aspirin 81 mg Tablet,Delayed Release (Dr/Ec) 81 mg PO DAILY RF: 0 famotidine 20 mg Tablet 20 mg PO BID RF: 0 oxybutynin chloride 5 mg Tablet 5 mg PO DAILY RF: 0 gabapentin 300 mg capsule 300 mg PO TID RF: 0 sertraline 50 mg tablet 100 mg PO DAILY RF: 0 linagliptin 5 mg tablet 5 mg PO DAILY RF: 0 Discharge Orders: Discharge Order (Routine); Ordered 12/28/19 Ordered By: Jessie Trent/Other Patient Handouts: Anemia, What Is Angina?, Tips for Using Less Salt, Low-Salt Choices, Low Salt Diet Dc Admission Data Admit Date/Time: 12/27/19 02:08 Attending Provider: Jessie Bautista Admit Provider: Marty Wakefield Primary Care Provider: Hannah Ceja Other Providers: Marty Wakefield ; Chucky Trammell ; Wilmer Delcid ; Kiran Horne ; Dimitris Bullock ; MeetDennis ram ; Caden Sesay ; Carole Alejo ; Tess Rosenthal ; Devan Mason Other Interventions: Discharge Summary Assessment (RN) Last Done: 12/28/19 14:24
--- NOTE | 2019-12-28 17:24 | Electrocardiogram Report ---
Test Reason : Blood Pressure : / mmHG Vent. Rate : 076 BPM Atrial Rate : 076 BPM P-R Int : 112 ms QRS Dur : 104 ms QT Int : 392 ms P-R-T Axes : 042 -67 014 degrees QTc Int : 441 ms Normal sinus rhythm Left anterior fascicular block Abnormal ECG When compared with ECG of 26-DEC-2019 19:44, No significant change was found Confirmed by Juan Francisco Munroe ([id number]) on 12/28/2019 5:24:37 PM Referred By: REFERRED SELF Confirmed By:Immanuel Munroe
== END 2019-12-28 14:40 | disposition home health service (06) ==
LOC: 2S 19:36 → ED 19:36 → 2S 12-27 02:37 → UNDODISOB 12-28 14:37

== ENCOUNTER 2020-02-28 17:14 | Inpatient (IN) ==
[2020-02-28] MEDS ORDERED: SODIUM CHLORIDE 0.9% 1000ML 1,000 ML IV ONE (21:10)
[2020-02-28] MEDS ORDERED: ONDANSETRON INJ 2 MG/ML 2 ML VIAL IV STA (21:10)
[2020-02-28] MEDS ORDERED: KETOROLAC TROMETHAMINE 15 MG/ML VIAL IV STA (21:10)
[2020-02-28] MEDS ORDERED: ACETAMINOPHEN 1,000 MG/100 ML VIAL IV STA (21:10)
--- NOTE | 2020-02-28 21:17 | Emergency Department Note ---
Impression & Plan Acute OR, Tachycardia, Vomiting and diarrhea, Acute dehydration, Hypomagnesemia ED Provider Note NAME: MAEVE GARCIA AGE: 64 SEX: F : 1955 ARRIVES VIA: Ambulance INFORMANT: [Patient] ED PROVIDER(S): [Jorge Muniz MD] CHIEF COMPLAINT: Illness HISTORY OF PRESENT ILLNESS: The patient is a 64-year-old female who has had around 2 days of vomiting and diarrhea. Patient cannot keep anything down. She has not taken any of her meds in 24 hours. There is no blood in the vomit or diarrhea. She has no abdominal pain. There has been no fever or shortness of breath. No sore throat or stuffy nose. She does complain of some left arm pain that has been present for several hours. No chest pain. She states the pain in the arm is severe. Nothing makes her arm pain better or worse. Patient states that she did have a cardiac catheterization within the last month, she states the cath showed some mild disease, nothing requiring intervention. The patient has no known Covid exposures. She has not had anything suspicious to eat or drink that might have caused her symptoms. She has had no sick contacts. Of note, the patient was feeling so poorly, she presents by EMS. REVIEW OF SYSTEMS: See HPI for pertinent positives and negatives. A total of ten systems were reviewed and were otherwise negative. PMHx/PSHx: See Below SOCIAL HISTORY: See Below. PHYSICAL EXAM: GENERAL: Patient is in no acute distress. HEENT: No acute trauma, normocephalic atraumatic, mucous membranes moist, no nasal congestion, no scleral icterus. NECK: No stridor, no adenopathy, no meningismus, trachea is midline. LUNGS: Clear to auscultation bilaterally, no wheeze, no rhonchi, breath sounds equal. HEART: Tachycardic, regular rhythm, no murmurs. ABDOMEN: Soft, nontender, bowel sounds positive, no hernias, no peritonitis. EXTREMITIES: No cyanosis or edema, full range of motion of all the joints without pain or difficulty, no signs for acute trauma. NEUROLOGIC: Oriented x 3, no acute motor or sensory deficits, no focal weakness. SKIN: No rash, no jaundice, no diaphoresis. DIFFERENTIAL DIAGNOSIS: Infection, dehydration, metabolic abnormality, hypo/hyperglycemia, hypertensive emergency/urgency, OR, dysrhythmia, Covid, generalized viral illness, electrolyte disturbance, anemia, hypoxia, cardiac sources, intracerebral event, toxicologic, neurologic, as well as other pathologies. EMERGENCY DEPARTMENT COURSE/PROCEDURES: ECG: Indication was arm pain and tachycardia. The ECG shows a sinus tachycardia with a right bundle branch block. Rate is 125. There is some ST elevation in lead V2 and possibly slightly in V3, no reciprocal changes. No PVCs. QTC is 525. Compared to an ECG from 28 December 2019, the rate has increased, the right bundle branch block is now present. The ST elevation is now present. Repeat ECG: There is a sinus rhythm with a short ID. There is a right bundle branch block. The rate is 96. There is ST elevation in leads V2, V3 and V4, no reciprocal changes. This ECG demonstrates changes consistent with an acute OR. Continuous Cardiac Monitoring: An order was placed for continuous cardiac monitoring. The monitor shows a rate of 97 with normal sinus rhythm. Critical Care Note: I have personally spent 42 minutes of critical care time in the direct management of this patient. This includes bedside care, interpretation of diagnostic studies, and testing, discussion with consultants, patient, and family members, and other required patient management activities. This 42 minutes is in excess of all separately billable procedures. MEDICAL DECISION MAKING: There is no leukocytosis or concerning anemia. There is a normal platelet count. No kidney failure, magnesium is low at 1.5. Glucose was elevated at 300. There were a few subtle liver enzyme elevations. Covid testing was negative. Chest film does not show pneumonia or CHF. No mediastinal widening. ECG shows a sinus tachycardia with a new right bundle branch block. There was some ST elevation in leads V2. Repeat EKG shows progression of the ST elevation and findings consistent with acute OR. Cardiac troponin returned elevated at 4. The patient presented with vomiting and diarrhea. She also had noticed some left arm pain over the last few hours. She was given a liter of IV saline, she received IV metoprolol, 10 mg. She was given IV Toradol, IV Tylenol and IV Zofran. The patient felt markedly improved with the above medications. Her arm pain was gone, there was no chest pain. I did speak with the improvement lead on-call for heart alert. The patient is going to go to the cardiac catheterization laboratory. I was able to review her cardiac cath from a month ago, she did have a 50% LAD lesion. Patient was given oral aspirin, she was given IV heparin. She was given a dose of oral metoprolol, 50 mg. She was ordered for IV magnesium. In short, the patient presented with vomiting and diarrhea. She was tachycardic. She was quite hypertensive. She was given medications for her symptoms and felt improvement. Despite her feeling better, her second EKG showed worsening of her ST changes. A heart alert was called. The patient is aware of her findings, I spoke with case management, the on-call hospitalist was consulted. Past Med/Surg History Medical History Arthritis Depression Diabetes Surgical History No pertinent past surgical history Family History Other Deep vein thrombosis Social History Smoking Status: Never smoker Hx Alcohol Use: No Hx Substance Use: No Preferred Language: Syriac Communication Ability: Effective Visual Impairment: No Limitations Hearing Ability: Normal Beliefs That Will Affect Care: None marital status: Current Living Situation: Spouse Current Living Situation Comment: The patient states that she lives with her child and their fianc. current occupational status: unemployed Feels Safe at Home: Yes Assistive Devices: CPAP and Glasses Allergies Allergies Allergy/AdvReac Type Severity Reaction Status Date / Time hydrocodone Allergy Mild UNK Verified 02/28/20 23:10 milk Allergy Unknown Unknown Verified 02/28/20 23:10 pine Allergy Unknown Unknown Uncoded 02/28/20 23:10 Home Meds Home Medications Medication Instructions Recorded Confirmed metformin 1,000 mg PO BIDM #0 06/30/09 02/28/20 gabapentin 300 mg PO TID 02/06/18 02/28/20 atorvastatin 80 mg PO DAILY 03/29/18 02/28/20 lisinopril 10 mg PO DAILY 03/29/18 02/28/20 metoprolol tartrate 50 mg PO BID 03/29/18 02/28/20 aspirin 81 mg PO DAILY 12/26/19 02/28/20 famotidine 20 mg PO BID 12/26/19 02/28/20 oxybutynin chloride 5 mg PO DAILY 12/26/19 02/28/20 hydroxyzine pamoate 25 mg PO TID PRN 01/26/20 02/28/20 insulin aspart U-100 [Novolog 3 unit SUBCUT DAILYBB 01/26/20 02/28/20 Flexpen U-100 Insulin] linagliptin [Tradjenta] 5 mg PO DAILY 02/28/20 02/28/20 nitroglycerin 0.4 mg SUBLINGUAL UD PRN 02/28/20 02/28/20 sertraline 100 mg PO DAILY 02/28/20 02/28/20 Previous Rx's Medication Instructions Recorded Lantus Solostar U-100 Insulin 12 unit SUBCUT PM #15 ml 12/28/19 hydrochlorothiazide 12.5 mg PO QAM 30 Days #15 tab 12/28/19 Results & Data (ED) Vital Signs Vital Signs - 24 hr 02/28/20 17:40 02/28/20 20:57 02/28/20 21:15 Temperature 36.8 C Temperature Source Temporal Artery Scan Pulse Rate 111 H 126 H Pulse Rate [Apical] 126 H Pulse Rate from SpO2 Sensor 126 H Respiratory Rate 18 14 15 Respiratory Effort / Characteristics Non-Labored Respiratory Depth Normal Blood Pressure 171/97 H Blood Pressure [Left Arm] 189/120 H Blood Pressure Mean 121 Blood Pressure Mean [Left Arm] 143 Pulse Oximetry 99 96 98 Oxygen Delivery Method Room Air Room Air Sepsis Recent Fever Within 48 Hours No Sepsis New/Unexplained Change in Mental Status No Sepsis Action Taken by Nursing No Action Required 02/28/20 21:18 02/28/20 21:30 02/28/20 21:31 Temperature Temperature Source Pulse Rate 125 H 130 H Pulse Rate [Apical] Pulse Rate from SpO2 Sensor 125 H 128 H Respiratory Rate 22 24 Respiratory Effort / Characteristics Respiratory Depth Blood Pressure 187/124 H Blood Pressure [Left Arm] Blood Pressure Mean 147 Blood Pressure Mean [Left Arm] Pulse Oximetry 95 97 Oxygen Delivery Method Room Air Sepsis Recent Fever Within 48 Hours Sepsis New/Unexplained Change in Mental Status Sepsis Action Taken by Nursing 02/28/20 21:45 02/28/20 22:00 02/28/20 22:01 Temperature Temperature Source Pulse Rate 126 H 117 H 115 H Pulse Rate [Apical] Pulse Rate from SpO2 Sensor 127 H 116 H 116 H Respiratory Rate 15 15 22 Respiratory Effort / Characteristics Respiratory Depth Blood Pressure 177/121 H Blood Pressure [Left Arm] Blood Pressure Mean 144 Blood Pressure Mean [Left Arm] Pulse Oximetry 96 94 92 Oxygen Delivery Method Sepsis Recent Fever Within 48 Hours Sepsis New/Unexplained Change in Mental Status Sepsis Action Taken by Nursing 02/28/20 22:15 02/28/20 22:16 02/28/20 22:30 Temperature Temperature Source Pulse Rate 99 H 96 H 93 H Pulse Rate [Apical] Pulse Rate from SpO2 Sensor 98 H 96 H 93 H Respiratory Rate 22 21 20 Respiratory Effort / Characteristics Respiratory Depth Blood Pressure 169/109 H 171/102 H Blood Pressure [Left Arm] Blood Pressure Mean 134 138 Blood Pressure Mean [Left Arm] Pulse Oximetry 91 91 94 Oxygen Delivery Method Sepsis Recent Fever Within 48 Hours Sepsis New/Unexplained Change in Mental Status Sepsis Action Taken by Nursing 02/28/20 22:31 02/28/20 22:43 02/28/20 22:45 Temperature Temperature Source Pulse Rate 95 H 100 H 97 H Pulse Rate [Apical] Pulse Rate from SpO2 Sensor 95 H 100 H 98 H Respiratory Rate 22 21 23 Respiratory Effort / Characteristics Respiratory Depth Blood Pressure 162/107 H 171/107 H Blood Pressure [Left Arm] Blood Pressure Mean 138 146 Blood Pressure Mean [Left Arm] Pulse Oximetry 93 97 94 Oxygen Delivery Method Sepsis Recent Fever Within 48 Hours Sepsis New/Unexplained Change in Mental Status Sepsis Action Taken by Nursing 02/28/20 23:00 Temperature Temperature Source Pulse Rate 104 H Pulse Rate [Apical] Pulse Rate from SpO2 Sensor 89 Respiratory Rate 19 Respiratory Effort / Characteristics Respiratory Depth Blood Pressure 161/100 H Blood Pressure [Left Arm] Blood Pressure Mean 120 Blood Pressure Mean [Left Arm] Pulse Oximetry 95 Oxygen Delivery Method Sepsis Recent Fever Within 48 Hours Sepsis New/Unexplained Change in Mental Status Sepsis Action Taken by [facility] Medications Current Medication List: was personally reviewed by me Laboratory Data Attestation: I reviewed the patient's lab results. Result diagrams: 02/28/20 21:48 02/28/20 21:48 Lab Results 02/28/20 02/28/20 02/28/20 Range/Units 21:48 21:48 21:48 WBC 9.47 (4.8-10.8) K/uL RBC 3.92 L (4.2-5.4) M/uL Hgb 12.3 (12.0-16.0) g/dL Hct 35.9 L (37-47) % MCV 91.6 (80-100) fL MCH 31.4 (25-34) pg MCHC 34.3 (32-36) g/dL RDW Std Deviation 41.4 (36.4-46.3) fL RDW Coeff of Ronaldo 12.3 (11.5-14.5) % Plt Count 236 (130-400) K/uL MPV 10.2 (7.4-10.4) fL Immature Gran % (Auto) 0.2 % Neut % (Auto) 87.6 % Lymph % (Auto) 9.5 % Gallia % (Auto) 2.5 % Eos % (Auto) 0.1 % Baso % (Auto) 0.1 % Neut # (Auto) 8.29 H (1.4-6.5) K/uL Lymph # (Auto) 0.90 L (1.2-3.4) K/uL Gallia # (Auto) 0.24 (0.11-0.59) K/uL Eos # (Auto) 0.01 (0-0.5) K/uL Baso # (Auto) 0.01 (0-0.2) K/uL Immature Gran # (Auto) 0.02 (0.00-0.02) K/uL Sodium 134 L (136-145) mmol/L Potassium 3.9 (3.5-5.1) mmol/L Chloride 101 (98-107) mmol/L Carbon Dioxide 22 (21-32) mmol/L Anion Gap 12.0 H (3-11) BUN 23 H (7-18) mg/dl Creatinine 0.85 (0.6-1.2) mg/dl Est Cr Clr Drug Dosing 70.8 ml/min Est GFR ( Amer) 85.1 Est GFR (Non-Af Amer) 73.4 BUN/Creatinine Ratio 26.8 H (10-20) Glucose 301 H* (70-99) mg/dl Calcium 8.9 (8.5-10.1) mg/dl Magnesium 1.5 L (1.8-2.4) mg/dl Total Bilirubin 0.6 (0.2-1) mg/dl AST 42 H (15-37) U/L ALT 9 L (12-78) U/L Alkaline Phosphatase 79 (45-117) U/L Troponin I 4.060 H* (0-0.045) ng/ml Total Protein 8.0 (6.4-8.2) gm/dl Albumin 3.5 (3.4-5.0) gm/dl Albumin/Globulin Ratio 0.8 L (0.9-2) COVID-19 Eval [facility] SARS-CoV-2, RNA, NAAT (NEGATIVE) 02/28/20 Range/Units 21:48 WBC (4.8-10.8) K/uL RBC (4.2-5.4) M/uL Hgb (12.0-16.0) g/dL Hct (37-47) % MCV (80-100) fL MCH (25-34) pg MCHC (32-36) g/dL RDW Std Deviation (36.4-46.3) fL RDW Coeff of Ronaldo (11.5-14.5) % Plt Count (130-400) K/uL MPV (7.4-10.4) fL Immature Gran % (Auto) % Neut % (Auto) % Lymph % (Auto) % Gallia % (Auto) % Eos % (Auto) % Baso % (Auto) % Neut # (Auto) (1.4-6.5) K/uL Lymph # (Auto) (1.2-3.4) K/uL Gallia # (Auto) (0.11-0.59) K/uL Eos # (Auto) (0-0.5) K/uL Baso # (Auto) (0-0.2) K/uL Immature Gran # (Auto) (0.00-0.02) K/uL Sodium (136-145) mmol/L Potassium (3.5-5.1) mmol/L Chloride (98-107) mmol/L Carbon Dioxide (21-32) mmol/L Anion Gap (3-11) BUN (7-18) mg/dl Creatinine (0.6-1.2) mg/dl Est Cr Clr Drug Dosing ml/min Est GFR ( Amer) Est GFR (Non-Af Amer) BUN/Creatinine Ratio (10-20) Glucose (70-99) mg/dl Calcium (8.5-10.1) mg/dl Magnesium (1.8-2.4) mg/dl Total Bilirubin (0.2-1) mg/dl AST (15-37) U/L ALT (12-78) U/L Alkaline Phosphatase (45-117) U/L Troponin I (0-0.045) ng/ml Total Protein (6.4-8.2) gm/dl Albumin (3.4-5.0) gm/dl Albumin/Globulin Ratio (0.9-2) COVID-19 Eval Order SARS-CoV-2, RNA, NAAT NEGATIVE (NEGATIVE) Administered Medications Lactated Ringer's (Lr) 1,000 mls @ 999 mls/hr IV .Q1H1M STA Stop: 02/28/20 23:32 Last Admin: 02/28/20 22:59 Dose: 999 mls/hr Documented by: [id number] Metoprolol Tartrate (Metoprolol Tartrate 1 Mg/Ml Vial) 5 mg IV Q5M PRN PRN Reason: Tachycardia Stop: 03/29/20 21:09 Last Admin: 02/28/20 22:58 Dose: 5 mg Documented by: [id number] Admin: 02/28/20 21:54 Dose: 5 mg Documented by: [id number] Discontinued Medications Sodium Chloride (Nss 1000ml) 1,000 mls @ 999 mls/hr IV .Q1H1M ONE Stop: 02/28/20 22:10 Last Infusion: 02/28/20 22:54 Dose: 0 mls/hr Documented by: [id number] Admin: 02/28/20 21:53 Dose: 999 mls/hr Documented by: [id number] Acetaminophen (Ofirmev) 1,000 mg in 100 mls @ 400 mls/hr IV NOW STA Stop: 02/28/20 21:24 Last Infusion: 02/28/20 22:12 Dose: 0 mls/hr Documented by: [id number] Admin: 02/28/20 21:57 Dose: 400 mls/hr Documented by: [id number] Ketorolac Tromethamine (Ketorolac Tromethamine 15 Mg/Ml Vial) 15 mg IV NOW STA Stop: 02/28/20 21:11 Last Admin: 02/28/20 21:54 Dose: 15 mg Documented by: [id number] Metoprolol Tartrate (Metoprolol Tartrate 50 Mg Tab) 50 mg PO NOW STA Stop: 12/07/20 22:45 Last Admin: 02/28/20 22:58 Dose: 50 mg Documented by: [id number] Ondansetron HCl (Ondansetron Inj 2 Mg/Ml 2 Ml Vial) 4 mg IV NOW STA Stop: 02/28/20 21:11 Last Admin: 02/28/20 21:55 Dose: 4 mg Documented by: [id number] Imaging Data Attestation: I personally reviewed and interpreted this imaging study as follows: My Impression: Chest x-ray: There is no pneumonia, mediastinal widening or pneumothorax. The lungs appear clear. No free air. Discharge Plan Visit Data Chief Complaint: Illness Stated Complaint: NAUSEA, VOMITING, DIARRHEA, FEVER, WEAK, ED Provider: Jorge Muniz Discharge Problem: Acute OR, Tachycardia, Vomiting and diarrhea, Acute dehydration, Hypomagnesemia Patient Disposition: Admitted As Inpatient Condition: Serious Forms Stand Alone Forms: My [facility] Prescriptions Prescriptions: No Action metformin 1,000 mg Tablet 1,000 mg PO BIDM Qty: 0 RF: 0 atorvastatin 80 mg Tablet 80 mg PO DAILY RF: 0 lisinopril 10 mg Tablet 10 mg PO DAILY RF: 0 metoprolol tartrate 50 mg tablet 50 mg PO BID RF: 0 aspirin 81 mg Tablet,Delayed Release (Dr/Ec) 81 mg PO DAILY RF: 0 famotidine 20 mg Tablet 20 mg PO BID RF: 0 oxybutynin chloride 5 mg Tablet 5 mg PO DAILY RF: 0 hydrochlorothiazide 25 mg Tablet 12.5 mg PO QAM 30 Days Qty: 15 RF: 2 Lantus Solostar U-100 Insulin 100 unit/mL (3 mL) insulin pen 12 unit SUBCUT PM Qty: 15 RF: 0 nitroglycerin 0.4 mg tablet, sublingual 0.4 mg sublingual UD PRN (Reason: Chest Pain) RF: 0 Tradjenta 5 mg tablet 5 mg PO DAILY RF: 0 sertraline 100 mg tablet 100 mg PO DAILY RF: 0 gabapentin 300 mg capsule 300 mg PO TID RF: 0 hydroxyzine pamoate 25 mg Capsule 25 mg PO TID PRN (Reason: Itching) RF: 0 insulin aspart U-100 [Novolog Flexpen U-100 Insulin] 100 unit/mL (3 mL) Insulin Pen 3 unit SUBCUT DAILYBB RF: 0 Referrals Referrals: Scarlett Aguilar MD [Primary Care Provider] - Discharge Problem: Acute OR Qualifiers: Myocardial infarction type: ST elevation myocardial infarction Involved coronary artery: unspecified coronary artery Qualified Code(s): I21.3 - ST elevation (STEMI) myocardial infarction of unspecified site
[2020-02-28] MEDS: METOPROLOL TARTRATE 1 MG/ML VIAL IV PRN ×2 (21:54→22:58)
[2020-02-28 22:10] LABS: Basophils # (auto) 0.01 K/uL (0-0.2); Basophils % (auto) 0.1 %; Eosinophils # (auto) 0.01 K/uL (0-0.5); Eosinophils % (auto) 0.1 %; Hematocrit (blood only) 35.9 % (37-47); Hemoglobin 12.3 g/dL (12.0-16.0); Immature Granulocytes # (auto) 0.02 K/uL (0.00-0.02); Immature Granulocytes % (auto) 0.2 %; Lymphocytes % (auto) 9.5 %; Mean Corpuscular Hemoglobin 31.4 pg (25-34); Mean Corpuscular Hgb Conc 34.3 g/dL (32-36); Mean Corpuscular Volume 91.6 fL (80-100); Mean Platelet Volume 10.2 fL (7.4-10.4); Monocytes # (auto) 0.24 K/uL (0.11-0.59); Monocytes % (auto) 2.5 %; Neutrophils # (auto) 8.29 K/uL (1.4-6.5); Neutrophils % (auto) 87.6 %; Platelet Count 236 K/uL (130-400); RDW Coefficient of Variation 12.3 % (11.5-14.5); RDW Standard Deviation 41.4 fL (36.4-46.3); Red Blood Count 3.92 M/uL (4.2-5.4); White Blood Count 9.47 K/uL (4.8-10.8)
[2020-02-28] MEDS ORDERED: LACTATED RINGER'S 1,000 ML IV STA (22:32)
[2020-02-28] MEDS ORDERED: METOPROLOL TARTRATE 50 MG TAB PO STA (22:44)
[2020-02-28 22:52] LABS: Albumin Level 3.5 gm/dl (3.4-5.0)
[2020-02-28 22:53] LABS: Albumin Globulin Ratio 0.8 (0.9-2); BUN Creatinine Ratio 26.8 (10-20); Bilirubin,Total 0.6 mg/dl (0.2-1); Calcium 8.9 mg/dl (8.5-10.1); Creatinine Clr Calc Pharmacy 70.8 ml/min; Est GFR (African American) 85.1; Est GFR (Non-African American) 73.4; Magnesium 1.5 mg/dl (1.8-2.4); Potassium 3.9 mmol/L (3.5-5.1); Troponin I 4.06 ng/ml (0-0.045)
[2020-02-28] MEDS ORDERED: HEPARIN SOD (PORCINE) 1000 UNIT/ML 10 ML VIAL IV ONE (23:01)
[2020-02-28] MEDS ORDERED: ASPIRIN CHEW 324 MG PO STA (23:01)
[2020-02-28] MEDS ORDERED: MAGNESIUM SULFATE / D5W 1 GM/100 ML BAG IV STA (23:07)
[2020-02-28 23:20] LABS: Beta-Hydroxybutyrate 33.27 mg/dl (0.2-2.81)
[2020-02-28] MEDS ORDERED: niCARdipine HCL INJ 2.5 MG/ML 10 ML AMP ONE (23:26)
[2020-02-28] MEDS ORDERED: HEPARIN (PORCINE) 1000 UNIT/ML 10 ML (CATH LAB USE ONLY) ONE (23:26)
[2020-02-28] MEDS ORDERED: fentaNYL citrate 100 MCG/2 ML VIAL ONE (23:26)
[2020-02-28] MEDS ORDERED: NITROGLYCERIN/D5W 100MCG/ML 20ML SYR ONE (23:27)
[2020-02-28] MEDS ORDERED: MIDAZOLAM HCL 1 MG/ML 2ML VIAL ONE (23:27)
--- NOTE | 2020-02-28 23:44 | Pre Anesthesia Assessment ---
Date of Service February 28, 2020 Pre Sedation Assessment Vital Signs Temp Pulse Pulse Resp BP BP Pulse Ox 02/28/20 23:30 95 H 19 180/104 H 97 02/28/20 23:15 95 H 20 140/125 H 97 02/28/20 23:00 104 H 19 161/100 H 95 02/28/20 22:45 97 H 23 171/107 H 94 02/28/20 22:43 100 H 21 162/107 H 97 02/28/20 22:31 95 H 22 93 02/28/20 22:30 93 H 20 171/102 H 94 02/28/20 22:16 96 H 21 91 02/28/20 22:15 99 H 22 169/109 H 91 02/28/20 22:01 115 H 22 92 02/28/20 22:00 117 H 15 177/121 H 94 02/28/20 21:45 126 H 15 96 02/28/20 21:31 130 H 24 97 02/28/20 21:30 125 H 22 187/124 H 95 02/28/20 21:15 126 H 15 98 02/28/20 20:57 126 H 14 189/120 H 96 02/28/20 17:40 98.2 F 111 H 18 171/97 H 99 Cardiovascular + tachycardic Respiratory normal respiratory effort, lungs clear to auscultation Pre-Sedation Airway Assessment Smoking Status: Never smoker Hx Sleep Apnea: Yes Hx Difficult Intubation: No Short, Thick Neck: No Thyromental Distance: > or= 3.5 Finger Breadths Oral Cavity: + WNL Mallampati Class: III ASA: ASA3 Procedure Planning Contraindications for Sedation: none Current Medications Reviewed: Yes Notes The planned sedation has been discussed with the patient. Informed Consent was obtained. I have identified the patient, determined the appropriateness of sedation and have assessed the patient immediately prior to the procedure. All medicine(s) and interventions are by my order.
--- NOTE | 2020-02-28 23:52 | Cardiology Consultation ---
Date of Consultation February 28, 2020 Assessment & Plan (1) Acute HI: Presentation concerning for anterior STEMI and recommend proceeding with emergent cardiac catheterization and likely primary PCI. No apparent contraindications to procedure. Discussed risks, benefits, alternatives of procedure with patient and they are willing to proceed. Given IV heparin in the ED. Further recommendations pending findings of coronary angiography. History of Present Illness History of Present Illness Mrs. Willis is a 64-year-old woman here with elevated troponin and ECG concerning for acute HI. Patient seen emergently in the ED after heart alert activated after second ECG. Past medical history remarkable for type 2 diabetes, hypertension, dyslipidemia, obstructive sleep apnea, anemia. Prior cardiac history remarkable for atypical chest pain admission back in December 2019. ECG cardiac enzymes unremarkable at that time. Later underwent outpatient stress test which was equivocal and led to cardiac catheterization 01/26/2020. Was found to have an intermediate mid LAD stenosis. FFR 0.84. 2 days ago developed new nausea vomiting without fevers or chills. Symptoms persisted for more than 24 hours. This morning developed new left arm sided pain which persisted. No real chest pain. In ED hypertensive, initial troponin elevated at 4. ECG showed sinus tachycardia with new right bundle branch block and ST elevations anteriorly, more prominent after IV fluids, IV metoprolol. Allergies Allergy/AdvReac Type Severity Reaction Status Date / Time hydrocodone Allergy Mild UNK Verified 02/28/20 23:10 milk Allergy Unknown Unknown Verified 02/28/20 23:10 pine Allergy Unknown Unknown Uncoded 02/28/20 23:10 Home Medications Medication Instructions Recorded Confirmed Type metformin 1,000 mg PO BIDM #0 06/30/09 02/28/20 History gabapentin 300 mg PO TID 02/06/18 02/28/20 History atorvastatin 80 mg PO DAILY 03/29/18 02/28/20 History lisinopril 10 mg PO DAILY 03/29/18 02/28/20 History metoprolol tartrate 50 mg PO BID 03/29/18 02/28/20 History aspirin 81 mg PO DAILY 12/26/19 02/28/20 History famotidine 20 mg PO BID 12/26/19 02/28/20 History oxybutynin chloride 5 mg PO DAILY 12/26/19 02/28/20 History Lantus Solostar U-100 Insulin 12 unit SUBCUT PM #15 ml 12/28/19 02/28/20 Rx hydrochlorothiazide 12.5 mg PO QAM 30 Days #15 tab 12/28/19 02/28/20 Rx hydroxyzine pamoate 25 mg PO TID PRN 01/26/20 02/28/20 History insulin aspart U-100 [Novolog 3 unit SUBCUT DAILYBB 01/26/20 02/28/20 History Flexpen U-100 Insulin] linagliptin [Tradjenta] 5 mg PO DAILY 02/28/20 02/28/20 History nitroglycerin 0.4 mg SUBLINGUAL UD PRN 02/28/20 02/28/20 History sertraline 100 mg PO DAILY 02/28/20 02/28/20 History Patient History Medical History Arthritis Depression Diabetes Surgical History No pertinent past surgical history Family History Other Deep vein thrombosis Social History Smoking Status: Never smoker Hx Alcohol Use: No Hx Substance Use: No Preferred Language: Micronesian Communication Ability: Effective Visual Impairment: No Limitations Hearing Ability: Normal Beliefs That Will Affect Care: None marital status: Current Living Situation: Spouse Current Living Situation Comment: The patient states that she lives with her child and their fianc. current occupational status: unemployed Feels Safe at Home: Yes Assistive Devices: CPAP and Glasses Review of Systems Review of Systems: All systems reviewed & are unremarkable except as noted in HPI & below Physical Exam Physical Exam: General: Comfortable, no acute distress HEENT: Sclerae anicteric, mucous membranes moist Lungs: Clear to auscultation bilaterally Cardiac: Regular rate and rhythm, no murmurs. Abdomen: Soft, nontender, nondistended, positive bowel sounds. Extremities: Warm, well perfused, no edema. 2+ radial pulses Skin: No rashes or lesions. Neuro: Nonfocal Psych: Alert orient x3, normal affect and mood Results & Data ([facility]) Vital Signs (Past 12 Hours) Vital Signs Temp Pulse Pulse Resp BP BP Pulse Ox 02/28/20 23:30 95 H 19 180/104 H 97 02/28/20 23:15 95 H 20 140/125 H 97 02/28/20 23:00 104 H 19 161/100 H 95 02/28/20 22:45 97 H 23 171/107 H 94 02/28/20 22:43 100 H 21 162/107 H 97 02/28/20 22:31 95 H 22 93 02/28/20 22:30 93 H 20 171/102 H 94 02/28/20 22:16 96 H 21 91 02/28/20 22:15 99 H 22 169/109 H 91 02/28/20 22:01 115 H 22 92 02/28/20 22:00 117 H 15 177/121 H 94 02/28/20 21:45 126 H 15 96 02/28/20 21:31 130 H 24 97 02/28/20 21:30 125 H 22 187/124 H 95 02/28/20 21:15 126 H 15 98 02/28/20 20:57 126 H 14 189/120 H 96 02/28/20 17:40 98.2 F 111 H 18 171/97 H 99 PG Care Time/CCT Total # of Minutes Spent Total Time Spent with Patient: Total time spent is greater than 50% in coordination of care (as documented) at patient's floor/unit and/or counseling patient: Coding Level of Care Code 65303 Inpt Consult Level 5 Diagnoses Acute HI I21.3 Involved coronary artery: unspecified coronary artery Myocardial infarction type: ST elevation myocardial infarction (1) Acute HI Involved coronary artery: unspecified coronary artery Myocardial infarction type: ST elevation myocardial infarction Qualified Code(s): I21.3 - ST elevat ion (STEMI) myocardial infarction of unspecified site
[2020-02-29 00:25] LABS: Globulin 4.5 gm/dl (2.5-4.0)
[2020-02-29] MEDS ORDERED: TICAGRELOR 90 MG TAB PO ONE (00:56)
[2020-02-29] MEDS ORDERED: ICU PROTOCOL FOR HYPERGLYCEMIA PRN (01:02)
[2020-02-29] MEDS ORDERED: ACETAMINOPHEN 325 MG TAB PO PRN (01:02)
--- NOTE | 2020-02-29 01:05 | History & Physical Report ---
Date of Service February 29, 2020 Assessment & Plan (1) STEMI (ST elevation myocardial infarction): LAD occlusion on cardiac cath status post DORIAN placement hypertension, elevated upon arrival at the ER hyperlipidemia on statin Rx Acute gastroenteritis rule out C. difficile given recent ER visit DM2 insulin requiring, suboptimal control as above recent hemoglobin A1c of 9.31 December 2019 chronic anemia, hemoglobin better than baseline likely secondary regurgitation mood disorder, at baseline past tobacco abuse ICU monitoring post PCI Management of cardiac issues as per Cardiology. Stool C. difficile Basal insulin adjusted for clear liquid diet for now, ISS BG goal [id number], carb count coverage, update hemoglobin A1c DVT prophylaxis. Lovenox subcu Full code Text document was generated using Voices voice recognition software. It may contain grammatical or spelling errors. Kindly contact undersigned for clarification of any documentation item in question. History of Present Illness Chief Complaint: Nausea, vomiting, diarrhea Primary Care Provider: Scarlett Devries MD History obtained from patient and records. Medical history significant for nonocclusive CAD, hypertension, hyperlipidemia, DM2 insulin requiring, GERD, chronic anemia (baseline hemoglobin of 11), mood disorder, past tobacco abuse. Last confinement December 2019 for chest pain attributed to uncontrolled hypertension. HCTZ added to home regimen. Recent ER visit 3 days ago for left ankle swelling. Soft tissue swelling on left ankle x-ray. Patient discharged home with Robbie wrap placement. 2 days history of bilious emesis and watery diarrhea symptoms without unusual abdominal discomfort. No fever, no chills. No chest pain, no S OB. At some point patient noted some discomfort in the left arm. At the ER, initial troponin noted to be 4. EKG showed ST elevation the anterior leads. Heart alert called. Patient underwent emergent cardiac catheterization and subsequent PCI. 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 Allergies Allergy/AdvReac Type Severity Reaction Status Date / Time hydrocodone Allergy Mild UNK Verified 02/28/20 23:10 milk Allergy Unknown Unknown Verified 02/28/20 23:10 pine nut Allergy Verified 02/29/20 11:50 pine Allergy Unknown Unknown Uncoded 02/28/20 23:10 Home Medications Medication Instructions Recorded Confirmed Type metformin 1,000 mg PO BIDM #0 06/30/09 02/28/20 History gabapentin 300 mg PO TID 02/06/18 02/28/20 History atorvastatin 80 mg PO DAILY 03/29/18 02/28/20 History lisinopril 10 mg PO DAILY 03/29/18 02/28/20 History metoprolol tartrate 50 mg PO BID 03/29/18 02/28/20 History aspirin 81 mg PO DAILY 12/26/19 02/28/20 History famotidine 20 mg PO BID 12/26/19 02/28/20 History oxybutynin chloride 5 mg PO DAILY 12/26/19 02/28/20 History Lantus Solostar U-100 Insulin 12 unit SUBCUT PM #15 ml 12/28/19 02/28/20 Rx hydrochlorothiazide 12.5 mg PO QAM 30 Days #15 tab 12/28/19 02/28/20 Rx hydroxyzine pamoate 25 mg PO TID PRN 01/26/20 02/28/20 History insulin aspart U-100 [Novolog 3 unit SUBCUT DAILYBB 01/26/20 02/28/20 History Flexpen U-100 Insulin] linagliptin [Tradjenta] 5 mg PO DAILY 02/28/20 02/28/20 History nitroglycerin 0.4 mg SUBLINGUAL UD PRN 02/28/20 02/28/20 History sertraline 100 mg PO DAILY 02/28/20 02/28/20 History Past Med/Surg History Medical History (Updated 02/29/20 @ 14:53 by Ada Santos DO) Arthritis Depression Diabetes Surgical History No pertinent past surgical history Family History Other Deep vein thrombosis Social History Smoking Status: Never smoker Second Hand Exposure: No; Do You Dip or Chew Tobacco: No; Tobacco Cessation Education Requested by Patient: No Hx Alcohol Use: No Hx Substance Use: No Preferred Language: Korean Communication Ability: Effective Visual Impairment: No Limitations Hearing Ability: Normal Elderly Companion Required: No Beliefs That Will Affect Care: None marital status: Current Living Situation: Family Current Living Situation Comment: The patient states that she lives with her child and their fianc. current occupational status: unemployed Other Information That Helps Us Care for You: No Feels Safe at Home: Yes Safety Concerns: Feels Safe At This Time Assistive Devices: Glasses Review of Systems Review of Systems: As per HPI, all 10 systems reviewed, all other ROS negative Physical Exam Physical Exam: GENERAL: Slightly uncomfortable, no respiratory distress SKIN: Normal color, warm HEENT: Bespectacled, pink palpebral conjunctivae, no ptosis, dry buccal mucosa NECK : Supple, no tenderness CHEST : CTA, no tenderness HEART : RRR, no obvious murmurs ABDOMEN: Some distention, nontender EXTREMITIES : No LE swelling/tenderness, no other conspicuous deformities noted NEUROLOGIC : Coherent, no facial asymmetry, no other gross focality Results & Data Results & Data ([facility]) Vital Signs (Past 12 Hours) Vital Signs Temp Pulse Pulse Resp BP BP Pulse Ox 02/28/20 23:30 95 H 19 180/104 H 97 02/28/20 23:15 95 H 20 140/125 H 97 02/28/20 23:00 104 H 19 161/100 H 95 02/28/20 22:45 97 H 23 171/107 H 94 02/28/20 22:43 100 H 21 162/107 H 97 02/28/20 22:31 95 H 22 93 02/28/20 22:30 93 H 20 171/102 H 94 02/28/20 22:16 96 H 21 91 02/28/20 22:15 99 H 22 169/109 H 91 02/28/20 22:01 115 H 22 92 02/28/20 22:00 117 H 15 177/121 H 94 02/28/20 21:45 126 H 15 96 02/28/20 21:31 130 H 24 97 02/28/20 21:30 125 H 22 187/124 H 95 02/28/20 21:15 126 H 15 98 02/28/20 20:57 126 H 14 189/120 H 96 02/28/20 17:40 36.8 C 111 H 18 171/97 H 99 Laboratory Results Laboratory Results WBC 9.47 K/uL (4.8-10.8) 02/28/20 21:48 RBC 3.92 M/uL (4.2-5.4) L 02/28/20 21:48 Hgb 12.3 g/dL (12.0-16.0) 02/28/20 21:48 Hct 35.9 % (37-47) L 02/28/20 21:48 MCV 91.6 fL (80-100) 02/28/20 21:48 MCH 31.4 pg (25-34) 02/28/20 21:48 MCHC 34.3 g/dL (32-36) 02/28/20 21:48 RDW Std Deviation 41.4 fL (36.4-46.3) 02/28/20 21:48 RDW Coeff of Ronaldo 12.3 % (11.5-14.5) 02/28/20 21:48 Plt Count 236 K/uL (130-400) 02/28/20 21:48 MPV 10.2 fL (7.4-10.4) 02/28/20 21:48 Immature Gran % (Auto) 0.2 % 02/28/20 21:48 Neut % (Auto) 87.6 % 02/28/20 21:48 Lymph % (Auto) 9.5 % 02/28/20 21:48 [place] % (Auto) 2.5 % 02/28/20 21:48 Eos % (Auto) 0.1 % 02/28/20 21:48 Baso % (Auto) 0.1 % 02/28/20 21:48 Neut # (Auto) 8.29 K/uL (1.4-6.5) H 02/28/20 21:48 Lymph # (Auto) 0.90 K/uL (1.2-3.4) L 02/28/20 21:48 [place] # (Auto) 0.24 K/uL (0.11-0.59) 02/28/20 21:48 Eos # (Auto) 0.01 K/uL (0-0.5) 02/28/20 21:48 Baso # (Auto) 0.01 K/uL (0-0.2) 02/28/20 21:48 Immature Gran # (Auto) 0.02 K/uL (0.00-0.02) 02/28/20 21:48 Activ Coag Time Kaolin 252 SECONDS (94-140) H 02/29/20 00:31 Sodium 134 mmol/L (136-145) L 02/28/20 21:48 Potassium 3.9 mmol/L (3.5-5.1) 02/28/20 21:48 Chloride 101 mmol/L (98-107) 02/28/20 21:48 Carbon Dioxide 22 mmol/L (21-32) 02/28/20 21:48 Anion Gap 12.0 (3-11) H 02/28/20 21:48 BUN 23 mg/dl (7-18) H 02/28/20 21:48 Creatinine 0.85 mg/dl (0.6-1.2) 02/28/20 21:48 Est Cr Clr Drug Dosing 70.8 ml/min 02/28/20 21:48 Est GFR ( Amer) 85.1 02/28/20 21:48 Est GFR (Non-Af Amer) 73.4 02/28/20 21:48 BUN/Creatinine Ratio 26.8 (10-20) H 02/28/20 21:48 Glucose 301 mg/dl (70-99) H* 02/28/20 21:48 Calcium 8.9 mg/dl (8.5-10.1) 02/28/20 21:48 Magnesium 1.5 mg/dl (1.8-2.4) L 02/28/20 21:48 Total Bilirubin 0.6 mg/dl (0.2-1) 02/28/20 21:48 AST 42 U/L (15-37) H 02/28/20 21:48 ALT 9 U/L (12-78) L 02/28/20 21:48 Alkaline Phosphatase 79 U/L (45-117) 02/28/20 21:48 Troponin I 4.060 ng/ml (0-0.045) H* 02/28/20 21:48 Total Protein 8.0 gm/dl (6.4-8.2) 02/28/20 21:48 Albumin 3.5 gm/dl (3.4-5.0) 02/28/20 21:48 Globulin 4.5 gm/dl (2.5-4.0) H 02/28/20 21:48 Albumin/Globulin Ratio 0.8 (0.9-2) L 02/28/20 21:48 Beta-Hydroxybutyric Acd 33.27 mg/dl (0.2-2.81) H 02/28/20 21:48 COVID-19 [facility] 02/28/20 21:48 SARS-CoV-2, RNA, NAAT NEGATIVE (NEGATIVE) 02/28/20 21:48 Diagnostic Findings Chest x-ray as per my interpretation no congestion EKG as per my interpretation : Rate 95, NSR, LAD, LAFB, RBBB, ST elevation an terior leads, delta wave
[2020-02-29] MEDS ORDERED: NITROGLYCERIN SL 0.4 MG/TAB TAB SL PRN (01:10)
--- NOTE | 2020-02-29 01:12 | Post Anesthesia Assessment ---
Date of Service February 29, 2020 Post Sedation Assessment Vital Signs Temp Pulse Pulse Resp BP BP Pulse Ox 02/28/20 23:30 95 H 19 180/104 H 97 02/28/20 23:15 95 H 20 140/125 H 97 02/28/20 23:00 104 H 19 161/100 H 95 02/28/20 22:45 97 H 23 171/107 H 94 02/28/20 22:43 100 H 21 162/107 H 97 02/28/20 22:31 95 H 22 93 02/28/20 22:30 93 H 20 171/102 H 94 02/28/20 22:16 96 H 21 91 02/28/20 22:15 99 H 22 169/109 H 91 02/28/20 22:01 115 H 22 92 02/28/20 22:00 117 H 15 177/121 H 94 02/28/20 21:45 126 H 15 96 02/28/20 21:31 130 H 24 97 02/28/20 21:30 125 H 22 187/124 H 95 02/28/20 21:15 126 H 15 98 02/28/20 20:57 126 H 14 189/120 H 96 02/28/20 17:40 98.2 F 111 H 18 171/97 H 99 Recovery Score Activity: Moves 4 extremities Respiration: Deep Breath/Cough Circulation: +/-20% PreAnes Value Consciousness: Fully Awake Oxygen Saturation: O2 needed for >90% Discharge Sedation Level of Care: Fast Track Phase II Post Sedation Plan On clinical assessment, the patient appears to have tolerated the sedation without complications. Patient is recovering as anticipated. Patient will continue to be monitored by nursing and may be discharged when sedation discharge criteria are met per below protocol. Upon Completions of procedure up to 15 minutes continue every 5 minute vital signs and the P.A.R. score; then discharge to a Phase I or Fast Track to Phase II per the following guidelines: * Discharge Patient to appropriate Phase II area if PAR is 8 or greater or return to pre- procedure baseline. The post - procedure orders will be as directed. * If PAR score is less than 8 or not return to pre-procedure baseline then patient will follow Phase I monitoring till PAR is reached for Phase II. The Phase I may be done in procedure room or may call to secure a Phase I area. * If naloxone or flumazenil are used for reversal, hold in Phase I for continue d monitoring from when last reversal dose was given for a minimum of 60 minutes or longer pending the nurse and/or physician discretion of patient condition before discharge to Phase II. Please call the Sedation Physician to re-evaluate and complete post-note for discharge to Phase II area. Do NOT discharge from procedure sedation or Phase 1 until post- sedation evaluation note is complete by procedure /sedation MD Sedation Discharge Instructions to be given to the patient at discharge to home.
[2020-02-29] MEDS ORDERED: SODIUM CHLORIDE 0.9% 1000ML 1,000 ML IV SCH (01:15)
--- NOTE | 2020-02-29 01:23 | Cardiac Catheterization ---
[facility] Data: Blue Split Trimmer Cardiac Status Clinical evaluation leading to the procedure CAD Presenation: STEMI Anginal Classification: CCS IV Heart Failure: No Cardiogenic Shock within 24 Hours: No Imaging Studies Past 6 Months: Yes Stress Studies Past 6 Months: Yes Stress Echocardiogram: Yes - Indeterminant Diagnostic Physicians Name: Juan Francisco Szymanski MD Status: Emergency Closure Device Percutaneous Entry Location: Radial Closure Device: Radial Band Recommendations: PCI without planned CABG PCI Indication: Immediate PCI for STEMI First Noted: Subsequent EKG Lesion Segment Name: Mid LAD Culprit Artery: Yes Stenosis Prior to Rx (%): 100 Chronic Total Occlusion: No IVUS: Yes FFR: No Pre-Procedure CHRISTOPHER Flow: 0 Previously Treated Lesion: No Lesion Complexity: Non-High/Non-C Lesion Length (mm): 18 Thrombus Present: Yes Bifurcation Lesion: Yes Guidewire Across Lesion: Stenosis Post-Procedure (%): 0 Post-Procedure CHRISTOPHER Flow: 3 Devices(s) Deployed: Yes Yes Intraprocedure Events Significant Disection: No Perforation: No Cardiac Cath Procedure Full Procedure Date February 29, 2020 Pre-Procedure Diagnosis Pre-Procedure Diagnosis: STEMI AUC Score AUC Score: 7 Post-Procedure Diagnosis Post-Procedure Diagnosis: Severe CAD, Successful PCI and Normal Intracardiac Pressures Procedure(s) Performed Procedure(s) Performed: Coronary Angiography, Left Heart Cath, Drug Eluting Stent and IVUS [employer] Deputy Sheriff Juan Francisco Szymanski MD Projection Printer(s) Antony Estimated Blood Loss Estimated Blood Loss: 10 Medication(s) Medication(s): Fentanyl, Heparin, Lidocaine 1%, Nicardipine, Nitroglycerin and Versed Medication(s): Ticagrelor Summary of Findings Indication: STEMI/Heart Alert Access: 6 Fr slender right radial artery Catheters: EBU 3.5 guide, JR4 Findings: LM -normal caliber, long, luminal regularity LAD -large caliber, 40% proximal, 100% mid acute occlusion just after takeoff of second diagonal Circumflex -medium caliber, small high OM1 with 90% ostial stenosis. Luminal regularities in OM 2, distal AV groove circumflex. RCA -dominant, large caliber vessel, proximal luminal regularities, 20 to 30% latemid stenosis. LVEDP -11 -- PCI -- Antithrombotic therapy: Heparin, ticagrelor Procedure: Left main cannulated with EBU 3.5 guide Doll Eye Setter 50 wire passed across lesion into distal vessel Mid LAD lesion predilated with 2.5 compliant balloon Bondurant IVUS placed into mid LAD to evaluate extent of disease within vessel, vessel sizing IVUS revealed severe disease in mid segment from D2-D3. Also noted to have a 70%, MLA 5.2 mm noncalcified plaque in proximal LAD Dilated mid LAD lesion stented with 2.75 x 22 mm [place] drug-eluting stent Stent post-dilated with 3.0 noncompliant balloon IC vasodilators administered for spasm Second DORIAN placed to proximal LAD stenosis appreciated on IVUS (3.5 x 15 mm [place]) Second DORIAN postdilated with 4.0 NC Repeat IVUS revealed well expanded, well apposed stents with no apparent edge complications Post procedure CHRISTOPHER 3 flow, stents well expanded with minimal residual stenosis and no apparent cardiac complications. Arterial Closure: TR band Summary: 1. Anterior STEMI/100% acute mid LAD occlusion 2. Minimal nonculprit vessel coronary artery disease 3. Normal intracardiac filling pressure 4. Successful PCI of proximal LAD with 3.5 x 15 mm [place] (postdilated with 4.0 NC) and mid LAD with 2.75 x 22 mm [place] (postdilated with 3.0 NC). Recommendations: Admit to ICU for continued monitoring Loaded with ticagrelor 180 mg in Blue Split Trimmer Continue dual-antiplatelet therapy for at least 1 year. Trend troponins until peak, Check Echo Uptitrate beta-erickson/ERA as BP allows High-dose statin Consult cardiac Rehab Hemodynamics Rest Ao:: 125/67/103 Final Ao: 149/74/107 LV: 142/11 Recommendations Recommendations: PCI without planned CABG Specimens Specimens: None Radiation Exposure (mGy) 1936 Contrast (mls) 115 Fluids (cc crystalloids) Fluids (cc crystalloids): 100 Drains Drains: None Anesthesia Moderate Procedural Complication(s) None Disposition ICU I attest to the content of the Intraoperative Record and any orders documented therein. Any exceptions are noted below. [facility] [place] Codes Cardiac Catheterization Procedure 1: Cardiovascular Cath Procedures: 76515 Coronaries and LHC (+/-LV) Therapeutic Services & Ancillary Proc Procedure 1: Cardiovascular Tx and Anc Procedures: 26017 IV Ultrasound (Coronary or Graft) Moderate Sedation Procedure 1: Sedation/Anesthesia: 83580 Mod Sedation by the same physician;Init15 Min Child Age 5 & Up Procedure 2: Sedation/Anesthesia: 85497 Mod Sedation by the same physician; Ea [id number] Minutes Stenting Procedure 1: Cardiovascular Stent Procedures: 85338 Perc transluminal revascularization of acute sub/total occl, aMI PG Care Time/CCT Total # of Minutes Spent Total Time Spent with Patient: Total time spent is greater than 50% in coordination of care (as documented) at patient's floor/unit and/or counseling p atient:
[2020-02-29] MEDS ORDERED: DEXTROSE 50% 50 ML SYRINGE IV PRN (01:57)
[2020-02-29] MEDS ORDERED: GLUCOSE 40% GEL 15 GM TUBE PO PRN (01:57)
[2020-02-29] MEDS ORDERED: GLUCAGON FOR INJ 1 MG VIAL SQ PRN (01:57)
[2020-02-29] MEDS ORDERED: GLUCOSE 10 TABS/TUBE PO PRN (01:57)
[2020-02-29] MEDS ORDERED: CARBOHYDRATES FOR HYPOGLYCEMIA PO PRN (01:57)
[2020-02-29] MEDS ORDERED: traMADol HCL 50 MG TABLET PO PRN (01:59)
[2020-02-29] MEDS ORDERED: MoRPHine SULFATE 2 MG/ML CARP IV PRN (01:59)
[2020-02-29] MEDS ORDERED: INSULIN GLARGINE SOLOSTAR 100 UNITS/ML 3 ML PEN SC STA (02:00)
[2020-02-29] MEDS ORDERED: INSULIN ASPART 100 UNITS/ML 3 ML PEN SC SCH ×2 (02:00→20:00)
[2020-02-29] MEDS ORDERED: PROMETHAZINE HCL 12.5 MG in SODIUM CHLORIDE 0.9% 50 ML IV PRN (02:00)
--- NOTE | 2020-02-29 02:02 | Critical Care Consultation ---
Date of Consultation February 29, 2020 Assessment & Plan (1) STEMI (ST elevation myocardial infarction): Reason Critically Ill: 64-year-old female presents to the ICU following anterior STEMI and found to have 100% occlusion of the LAD, now status post successful PCI x2 to the LAD Neuro - CAM ICU: Negative Cardiac - STEMIEKG with anterior lead ST elevation in the ER, heart alert initiated and found to have 100% occlusion of the LAD in Maintenance Planning Clerk -Status post successful PCI to proximal LAD out of the wound and mid LAD x1 -Appreciate cardiology recommendations -Given heparin in ED, loaded with ticagrelor 180 mg in Maintenance Planning Clerk -Initial troponin of 4, trend for peak -Follow-up echo in a.m -Follow-up lipid panel and A1c -Continue dual antiplatelet therapy, BB/ERA, and high-dose statin -Continuous monitoring on telemetry in ICU Respiratory - No history of pulmonary disease Maintaining oxygen saturation on room air, monitor on pulse ox GI - Heart healthy diet RENAL/LYTES - Creatinine within normal limits, monitor routine BMPs and replete electrolytes as indicated - Strict I's and O's ENDO - DM type IIcontinue sliding scale umbilical bolus -ICU hyperglycemic protocol -Follow-up A1c in a.m. No history of thyroid disease, follow-up TSH HEME - H&H stable, monitor routine CBCs ID - No indication for infectious process at this time LINES/IV ACCESS - Peripheral IVs DVT PROPHYLAXIS - SCDs, heparin Thank you for allowing us to participate in the care of this patient. Please refer to my attending physician's documentation for any further recommendations. (2) Right bundle branch block: (3) Acute GA: (4) Tachycardia: (5) Vomiting and diarrhea: (6) Diabetes: (7) Chest pain: (8) Hypertension: History of Present Illness Attending Physician: Torrey Lee MD History of Present Illness Ms. Willis 64-year-old female with PMH of HLD, CAD, DM type II, HTN and recent GI illness with nausea and vomiting and diarrhea for the past 2 days. Symptoms did subside within the past 24 hours. She was recently admitted to [facility] with complaints of chest pain and underwent cardiac catheterization which revealed 50% stenosis of the LAD. Patient presented to the emergency department earlier this evening with complaints of left arm pain. She was found to be hypertensive in the ED. A troponin was elevated at 4 and EKG showed sinus tachycardia with a new right bundle branch block and anterior ST elevations. Heart alert was initiated and the patient was taken to the Maintenance Planning Clerk where she was found to have 100% occlusion of the LAD. She underwent successful PCI of proximal LAD x1 and mid LAD x1. Patient transferred to the ICU post cath for continued monitoring following STEMI with PCI x2 On arrival to the ICU patient is alert and oriented appears comfortable. She denies any chest pain, arm pain, or shortness of breath. She states that overall she feels much better than when she arrived initially to the emergency department. She currently denies headache, dizziness, nausea or vomiting, recent fevers or illnesses, cough, palpitations, abdominal pain. Patient did state that she was previously having vomiting and diarrhea from a GI illness for the past 2 days which she believes has subsided and is no longer having symptoms. Patient to remain in ICU overnight for monitoring. Allergies Allergy/AdvReac Type Severity Reaction Status Date / Time hydrocodone Allergy Mild UNK Verified 02/28/20 23:10 milk Allergy Unknown Unknown Verified 02/28/20 23:10 pine Allergy Unknown Unknown Uncoded 02/28/20 23:10 Home Medications Medication Instructions Recorded Confirmed Type metformin 1,000 mg PO BIDM #0 06/30/09 02/28/20 History gabapentin 300 mg PO TID 02/06/18 02/28/20 History atorvastatin 80 mg PO DAILY 03/29/18 02/28/20 History lisinopril 10 mg PO DAILY 03/29/18 02/28/20 History metoprolol tartrate 50 mg PO BID 03/29/18 02/28/20 History aspirin 81 mg PO DAILY 12/26/19 02/28/20 History famotidine 20 mg PO BID 12/26/19 02/28/20 History oxybutynin chloride 5 mg PO DAILY 12/26/19 02/28/20 History Lantus Solostar U-100 Insulin 12 unit SUBCUT PM #15 ml 12/28/19 02/28/20 Rx hydrochlorothiazide 12.5 mg PO QAM 30 Days #15 tab 12/28/19 02/28/20 Rx hydroxyzine pamoate 25 mg PO TID PRN 01/26/20 02/28/20 History insulin aspart U-100 [Novolog 3 unit SUBCUT DAILYBB 01/26/20 02/28/20 History Flexpen U-100 Insulin] linagliptin [Tradjenta] 5 mg PO DAILY 02/28/20 02/28/20 History nitroglycerin 0.4 mg SUBLINGUAL UD PRN 02/28/20 02/28/20 History sertraline 100 mg PO DAILY 02/28/20 02/28/20 History Patient History Medical History Arthritis Depression Diabetes Surgical History No pertinent past surgical history Family History Other Deep vein thrombosis Social History Smoking Status: Never smoker Second Hand Exposure: No; Do You Dip or Chew Tobacco: No; Tobacco Cessation Education Requested by Patient: No Hx Alcohol Use: No Hx Substance Use: No Preferred Language: Estonian Communication Ability: Effective Visual Impairment: No Limitations Hearing Ability: Normal Nuclear Engineering Technician Required: No Beliefs That Will Affect Care: None marital status: Current Living Situation: Family Current Living Situation Comment: The patient states that she lives with her child and their fianc. current occupational status: unemployed Other Information That Helps Us Care for You: No Feels Safe at Home: Yes Safety Concerns: Feels Safe At This Time Assistive Devices: Glasses Review of Systems Review of Systems: All systems reviewed & are unremarkable except as noted in HPI & below Physical Exam Constitutional: cooperative and comfortable Eyes: PERRL, conjunctivae normal, anicteric sclerae ENMT: external ear and nose normal, oropharynx normal Neck: trachea midline, no thyromegaly Respiratory: normal respiratory effort, lungs clear to auscultation Cardiovascular: RRR, no murmur, no edema Heart Sounds: normal S1 and normal S2 Vessels: no JVD Extremities: normal capillary refill; no edema Gastrointestinal (Abdomen): normal bowel sounds, soft, nontender, no hepatosplenomegaly Musculoskeletal: no cyanosis or clubbing, extremities motor strength 5/5 Skin: no rashes, warm and dry Neurologic: PERRL, EOMI, accommodation nl, no face palsy, no dysarthria Psychiatric: A+Ox3, euthymic affect Results & Data Results & Data ([facility]) Vital Signs (Past 12 Hours) Vital Signs Temp Pulse Pulse Resp BP BP Pulse Ox 02/28/20 23:30 95 H 19 180/104 H 97 02/28/20 23:15 95 H 20 140/125 H 97 02/28/20 23:00 104 H 19 161/100 H 95 02/28/20 22:45 97 H 23 171/107 H 94 02/28/20 22:43 100 H 21 162/107 H 97 02/28/20 22:31 95 H 22 93 02/28/20 22:30 93 H 20 171/102 H 94 02/28/20 22:16 96 H 21 91 02/28/20 22:15 99 H 22 169/109 H 91 02/28/20 22:01 115 H 22 92 02/28/20 22:00 117 H 15 177/121 H 94 02/28/20 21:45 126 H 15 96 02/28/20 21:31 130 H 24 97 02/28/20 21:30 125 H 22 187/124 H 95 02/28/20 21:15 126 H 15 98 02/28/20 20:57 126 H 14 189/120 H 96 02/28/20 17:40 36.8 C 111 H 18 171/97 H 99 Coding Level of Care Code 81849 Office/OBS Consult Lvl 5 Diagnoses STEMI (ST elevation myocardial infarction) I21.3 Right bundle branch block I45.10 Acute GA I21.3 Involved coronary artery: unspecified coronary artery Myocardial infarction type: ST elevation myocardial infarction Tachycardia R00.0 Vomiting and diarrhea R11.10; R19.7 Diabetes E11.9 Chest pain R07.9 Chest pain type: unspecified Hypertension I10 Hypertension type: essential hypertension (1) Acute GA Involved coronary artery: unspecified coronary artery Myocardial infarction type: ST elevation myocardial infarction Qualified Code(s): I21.3 - ST elevation (STEMI) myocardial infarction of unspecified site (2) Chest pain Chest pain type: unspecified Qualified Code(s): R07.9 - Chest pain, unspecified (3) Hypertension Hypertension type: essential hypertension Qualified Code(s): I10 - Essential (primary) hypertension
[2020-02-29] MEDS: MAGNESIUM SULFATE / D5W 1 GM/100 ML BAG IV SCH ×2 (02:39→03:36)
[2020-02-29 06:02] LABS: Eosinophils # (auto) 0.05 K/uL (0-0.5); Eosinophils % (auto) 0.6 %; Hematocrit (blood only) 32.3 % (37-47); Hemoglobin 10.9 g/dL (12.0-16.0); Immature Granulocytes # (auto) 0.03 K/uL (0.00-0.02); Immature Granulocytes % (auto) 0.3 %; Lymphocytes # (auto) 1.29 K/uL (1.2-3.4); Mean Corpuscular Hemoglobin 30.7 pg (25-34); Mean Corpuscular Hgb Conc 33.7 g/dL (32-36); Mean Platelet Volume 9.6 fL (7.4-10.4); Monocytes # (auto) 0.74 K/uL (0.11-0.59); Monocytes % (auto) 8.6 %; Neutrophils # (auto) 6.48 K/uL (1.4-6.5); Neutrophils % (auto) 75.5 %; Platelet Count 215 K/uL (130-400); RDW Coefficient of Variation 12.1 % (11.5-14.5); RDW Standard Deviation 40.5 fL (36.4-46.3); Red Blood Count 3.55 M/uL (4.2-5.4); White Blood Count 8.59 K/uL (4.8-10.8)
[2020-02-29 06:12] LABS: Estimated Average Glucose 266 mg/dl; Hemoglobin A1C 10.9 % (4.5-5.6)
[2020-02-29 06:32] LABS: BUN Creatinine Ratio 26.1 (10-20); Calcium 7.9 mg/dl (8.5-10.1); Creatinine Clr Calc Pharmacy 92.5 ml/min; Est GFR (African American) 110.3; Est GFR (Non-African American) 95.2; Magnesium 2.8 mg/dl (1.8-2.4); Potassium 3.5 mmol/L (3.5-5.1)
[2020-02-29 06:55] LABS: Thyroid Stimulating Hormone 0.283 uIu/ml (0.300-4.500)
[2020-02-29] MEDS ORDERED: PHARMACY GLYCEMIC MGMT CONSULT PRN (06:55)
[2020-02-29] MEDS ORDERED: NovoLIN-R BOLUS FROM BAG IV ONE (07:00)
[2020-02-29] MEDS ORDERED: INSULIN REGULAR 250 UNITS in SODIUM CHLORIDE 0.9% 247.5 ML IV SCH (07:00)
[2020-02-29 07:29] LABS: T4 Free Thyroxine 1.3 ng/dl (0.8-1.6)
--- NOTE | 2020-02-29 08:11 | XRay Report ---
XR chest 1V portable HISTORY: weakness COMPARISON: Chest 12/26/2019. FINDINGS: Mild diffuse interstitial thickening which is likely chronic. No focal lung consolidations to suggest pneumonia. No pleural effusions. No pneumothorax. The heart is normal in size. IMPRESSION: No acute process. ACT 112: Negative or not required by law. Electronically signed by: Nicholas Lombardo M.D. 02/29/2020 8:10 AM
[2020-02-29] MEDS: INSULIN ASPART 100 UNITS/ML 3 ML PEN SC SCH ×4 (08:13→20:11)
[2020-02-29] MEDS: lisinopril 5 MG TAB PO SCH (08:29)
[2020-02-29] MEDS: ATORVASTATIN 40 MG TAB PO SCH (08:29)
[2020-02-29] MEDS: ENOXAPARIN INJ 40 MG/0.4 ML SYR SQ SCH (08:29)
[2020-02-29] MEDS: ASPIRIN 81 MG ECTAB PO SCH (08:29)
[2020-02-29] MEDS: METOPROLOL TARTRATE 25 MG TAB PO SCH ×2 (08:29→20:13)
[2020-02-29 09:02] LABS: Appearance Urine Clear (Clear); Bacteria Urine Automated Negative (Negative); Bilirubin Urine Negative (Negative); Blood Urine 1+ (Negative); Color Urine Yellow; Epithelial Cell Urine Auto 20-30 /lpf (0-5); Glucose Urine UA 3+ (Negative); Ketones Urine 2+ (Negative); Leukocyte Esterase Urine Negative (Negative); Nitrite Urine Negative (Negative); Protein Urine 2+ (Negative); RBC Urine Automated 0-4 /hpf (0-4); Specific Gravity Urine > 1.045 (1.000-1.030); Urobilinogen Urine Negative (Negative)
--- NOTE | 2020-02-29 10:43 | Communication Note ---
Date of Service: February 29, 2020 Received in signout from Maddy COLEMAN, patient asymptomatic chest pain-free no shortness of breath up and ambulating at this time. I have reviewed the echo there is a reduced EF, she is stable for downgrade of the ICU to telemetry status. Mild hypokalemia giving 60 M EQ's K. Dur twice daily today Continue on insulin drip hopefully transition soon Poorly controlled diabetes Patient was discussed in multidisciplinary rounds. Coding Level of Care Code None
[2020-02-29] MEDS: TICAGRELOR 90 MG TAB PO SCH ×2 (11:40→20:12)
[2020-02-29] MEDS: POTASSIUM CHLORIDE CRTAB 20 MEQ TABCR PO SCH ×2 (11:40→16:20)
--- NOTE | 2020-02-29 13:41 | Pharmacy Report ---
Pharmacy Glycemic Short Note 2 - Date of Service February 29, 2020 - Glycemic Short BSG Results (Last 24 hours): 02/28/20 02/29/20 02/29/20 21:48 02:23 05:45 Glucose 301 H* 263 H POC Glucose 254 H 02/29/20 02/29/20 02/29/20 07:25 08:24 09:22 Glucose POC Glucose 278 H 223 H 239 H 02/29/20 02/29/20 02/29/20 10:29 11:30 12:34 Glucose POC Glucose 217 H 159 H 186 H OUTPATIENT ANTIDIABETIC REGIMEN: * Lantus 12 units Q HS * Novolog 3 units SQ w/ breakfast * A1c = 10.9% 02/29/20 ASSESSMENT: * Poorly controlled type 2 diabetic admitted for STEMI, now s/p PCI w/ DORIAN x 2 t o LAD * Patient was started on IV insulin infusion per ICU protocol due to treatment resistant hyperglycemia. AG metabolic acidosis not present on this AM's chemistry. Infusion continues at this time @2.4 units/hr and BSGs are now near goal (goal range 110-180). Will add SQ basal insulin at this time with hopes of transitioning patient off of IV insulin infusion in the next 24 hours. Will base Lantus dosing upon weight and PLAN FOR INPATIENT GLYCEMIC CONTROL: * Hold outpatient oral diabetes medications * Basal insulin * Lantus 25 units SQ x 1 now, then HS per scale tonight: * 0 units if BSG less than 110 * 7 units if BSG 110-200 * 14 units if BSG greater than 200 * D/C IV insulin drip 6 hours after 1st Lantus dose given * Bolus insulin * NovoLog per scale q 4 hrs initially * Goal Range: Low 110 mg/dL - High 140 mg/dL * Correction Factor: 25 mg/dL/unit * Nutritional / Prandial insulin per carb ratio of 1 unit per 8 grams CHO consumed PLAN FOR DISCHARGE: * To be determined, however given recent A1c of 10.9%, there is room for improvement especially in light of recent STEMI. I suspect an increase in both basal and prandial insulin doses are required.
[2020-02-29] MEDS ORDERED: INSULIN GLARGINE SOLOSTAR 100 UNITS/ML 3 ML PEN SC ONE (13:45)
--- NOTE | 2020-02-29 13:49 | Cardiology Progress Note ---
Date of Service February 29, 2020 Assessment & Plan (1) STEMI (ST elevation myocardial infarction): (2) Diabetes: (3) Hypertension: (4) Ischemic cardiomyopathy: Status post successful PCI in the setting of LAD STEMI. Echocardiogram shows significant hypokinesis of the LAD territory, hopefully, due to hibernating/stunned myocardium. No bleeding issues with aspirin and Brilinta. No ventricular arrhythmias on monitor, will require 72 hours total of telemetry monitoring status post event. Continue aspirin, Brilinta, metoprolol, lisinopril and atorvastatin. We will consider cardiac rehab upon discharge. Admission and Anticipated Discharge Date Admission Date: February 29, 2020 Subjective [facility] cardiology service to assume cardiac follow-up at this time. Greatly appreciate Dr. Szymanski's intervention. Patient seen and examined, chart reviewed. States that she is feeling okay today. A little tired and rundown but denies any recurrences of chest discomfort nor does she have any shortness of breath, palpitations, lightheadedness, dizziness or syncope. Tolerating oral medical regimen without issue. Telemetry reviewed: Normal sinus rhythm without arrhythmia or significant ventricular ectopy. Review of Systems Review of Systems: All systems reviewed & are unremarkable except as noted in HPI & below Physical Exam Physical Exam: General: Awake, alert and oriented x 3. No acute distress. HEENT: Normocephalic, atraumatic. Pupils equal, round and reactive to light and accommodation. Extraocular muscles are intact. Anicteric sclera. Moist mucous membranes. Neck: No JVD. No bruit. Cardiovascular: Regular. Positive S-4. Normal S-1 and S-2. No S-3. No murmurs or rubs. Pulmonary: Clear to auscultation B/L. No rales, rhonchi or wheezing Abdomen: Bowel sounds x 4, soft. No rebound, guarding or tenderness. No organomegaly. Extremities: No clubbing, cyanosis or edema. +2 pedal pulses bilaterally. Skin: Warm and dry. Results & Data ([facility]) Vital Signs (Past 12 Hours) Vital Signs Temp Pulse Pulse Resp BP BP Pulse Ox 02/29/20 12:43 36.9 C 82 22 113/73 98 02/29/20 09:00 82 17 108/79 97 02/29/20 08:00 81 16 135/79 96 02/29/20 07:01 79 96 02/29/20 07:00 36.8 C 81 145/86 H 96 02/29/20 06:30 81 17 98 02/29/20 06:01 80 21 97 02/29/20 06:00 76 15 145/86 H 98 02/29/20 05:30 76 20 97 02/29/20 05:01 75 20 96 02/29/20 05:00 73 19 135/79 96 02/29/20 04:45 75 19 135/84 97 02/29/20 04:31 80 20 96 02/29/20 04:30 76 20 130/79 96 02/29/20 04:15 76 20 138/83 97 02/29/20 04:01 76 17 98 02/29/20 04:00 77 18 136/83 97 02/29/20 03:46 76 17 97 02/29/20 03:45 75 18 135/85 97 02/29/20 03:31 87 14 97 02/29/20 03:30 84 16 121/93 98 02/29/20 03:16 81 21 95 02/29/20 03:15 79 13 145/94 H 98 02/29/20 03:01 81 19 96 02/29/20 03:00 80 18 144/89 H 98 02/29/20 02:46 81 17 97 02/29/20 02:45 79 17 144/90 H 98 02/29/20 02:31 93 H 14 99 02/29/20 02:30 80 16 146/92 H 97 02/29/20 02:16 80 20 95 02/29/20 02:15 78 17 143/86 H 98 02/29/20 02:01 81 10 L 96 02/29/20 02:00 83 14 137/91 97 02/29/20 01:46 81 17 98 02/29/20 01:45 81 15 143/92 H 99 (1) Hypertension Hypertension type: essential hypertension Qualified Code(s): I10 - Essential (primary) hypertension
--- NOTE | 2020-02-29 14:35 | Hospitalist Progress Note ---
Date of Service February 29, 2020 Assessment & Plan (1) STEMI (ST elevation myocardial infarction): Patient received 2 drug-eluting stents to LAD overnight with resolution of symptoms. Troponin has peaked and is trending down. Continue medical management of CAD per cardiology. (2) Ischemic cardiomyopathy: Echocardiogram reveals ejection fraction 35 to 40%. Patient has crackles on exam at bases but is not hypoxic or working to breathe. She does not examine as volume overloaded. Chest x-ray from overnight reveals no acute process, if crackles persist would repeat x-ray and consider diuretics. Continue current medical management (3) Vomiting and diarrhea: Appears to have resolved, however, patient is still nauseous and is on clear fluids. She is currently on an insulin drip for diabetes which is being medically managed by inpatient glycemic pharmacist. Lantus has been given an insulin drip is to be transitioned off over the next 12 hours. Presumably patient will begin to start eating during this time. Antiemetics as needed. (4) Hypertension: Around goal, continue current medical therapy. (5) Depression: Chronic, stable, restarted home sertraline and gabapentin. (6) DMII (diabetes mellitus, type 2): Controlled on insulin drip. Lantus ordered twice daily with NovoLog as needed. Per inpatient glycemic pharmacist management. She is uncontrolled with an A1c of 10.9 and will need close primary care follow-up on discharge. Strong consideration should be given to stopping Metformin and transitioning to full basal bolus insulin as outpatient. Goal A1c is less than 7, or better than that less than 6.5. (7) DVT prophylaxis: Lovenox Full code Dispo-to home when medically stable, likely in the next 2 to 3 days. She cannot go unless cleared by cardiology. Ada Santos DO [facility] Hospitalist Admission and Anticipated Discharge Date Admission Date: February 29, 2020 Subjective 64-year-old female presented with 2 days of vomiting and diarrhea with associated severe left arm pain. Initial EKG revealed sinus tachycardia with concern for an anterior ST CAROL and cardiac troponin returned with elevated at 4; clinical picture consistent for an acute CA. She was immediately taken to the cardiac catheterization lab and was given oral aspirin and IV heparin as well as oral metoprolol and IV magnesium. She was found to have an LAD occlusion and received 2 drug-eluting stents. She was recovered in the ICU. Follow-up echo this morning reveals an EF of 35 to 40%, severe hypokinesis to akinesis of the apex. And mild to distal anterolateral anterior, anteroseptal and inferior septal kovacs. Grade 1 diastolic dysfunction is noted and no significant valvular pathology was seen. Mild concentric LVH was noted. She was downgraded to telemetry status. [facility] cardiology is following the patient. Per her report, she is very fatigued today. She denies any chest pain and feels much better from yesterday overall. She denies any further nausea or vomiting or any further diarrhea at this time. She denies any shortness of breath. Review of Systems Review of Systems: All systems reviewed & are unremarkable except as noted in Subjective Physical Exam Physical Exam: CONSTITUTIONAL: WNWD, vitals as above, generally well- appearing EYES: EOMI bilaterally, PERRL, normal conjunctivae, no scleral icterus ENT: external ear and nose normal, oropharynx clear RESPIRATORY: crackles heard at bases bilaterally with diminished airflow throughout upper lung sung. no rales or wheezes, normal respiratory effort CARDIOVASCULAR: regular rate and rhythm, S1 and 2 heard without murmurs, gallops or rubs, no JVD, no peripheral edema CHEST: inspection of chest was normal GASTROINTESTINAL: soft, nontender, nondistended, no guarding MUSCULOSKELETAL: strength 5/5 throughout, head is normocephalic and atraumatic SKIN: warm and dry NEUROLOGIC: No facial palsy, no dysarthria. CN 2-12 grossly intact, no sensory deficit, normal cognition, normal speech, no gross focal deficits. PSYCHIATRIC: alert cooperative and oriented to person, place and time. Results & Data Results & Data ([facility]) Vital Signs (Past 12 Hours) Vital Signs Temp Pulse Pulse Resp BP BP Pulse Ox 02/29/20 12:43 36.9 C 82 22 113/73 98 02/29/20 09:00 82 17 108/79 97 02/29/20 08:00 81 16 135/79 96 02/29/20 07:01 79 96 02/29/20 07:00 36.8 C 81 145/86 H 96 02/29/20 06:30 81 17 98 02/29/20 06:01 80 21 97 02/29/20 06:00 76 15 145/86 H 98 02/29/20 05:30 76 20 97 02/29/20 05:01 75 20 96 12/08/20 05:00 73 19 135/79 96 02/29/20 04:45 75 19 135/84 97 02/29/20 04:31 80 20 96 02/29/20 04:30 76 20 130/79 96 02/29/20 04:15 76 20 138/83 97 02/29/20 04:01 76 17 98 02/29/20 04:00 77 18 136/83 97 02/29/20 03:46 76 17 97 02/29/20 03:45 75 18 135/85 97 02/29/20 03:31 87 14 97 02/29/20 03:30 84 16 121/93 98 02/29/20 03:16 81 21 95 02/29/20 03:15 79 13 145/94 H 98 02/29/20 03:01 81 19 96 02/29/20 03:00 80 18 144/89 H 98 02/29/20 02:46 81 17 97 02/29/20 02:45 79 17 144/90 H 98 Laboratory Results Short CBC 02/28/20 02/29/20 Range/Units 21:48 05:45 WBC 9.47 8.59 (4.8-10.8) K/uL Hgb 12.3 10.9 L (12.0-16.0) g/dL Hct 35.9 L 32.3 L (37-47) % Plt Count 236 215 (130-400) K/uL BMP 02/28/20 02/29/20 21:48 05:45 Sodium 134 L 133 L Potassium 3.9 3.5 Chloride 101 102 Carbon Dioxide 22 23 BUN 23 H 17 Creatinine 0.85 0.65 Glucose 301 H* 263 H Calcium 8.9 7.9 L Cardiac Enzymes 02/28/20 02/29/20 02/29/20 Range/Units 21:48 05:45 12:52 Troponin I 4.060 H* 106.000 H* 48.500 H* (0-0.045) ng/ml Liver Function 02/28/20 Range/Units 21:48 Total Bilirubin 0.6 (0.2-1) mg/dl AST 42 H (15-37) U/L ALT 9 L (12-78) U/L Alkaline Phosphatase 79 (45-117) U/L Albumin 3.5 (3.4-5.0) gm/dl Urine 02/29/20 Range/Units 08:56 Urine Color Yellow Urine Appearance Clear (Clear) Urine pH 5.0 (4.5-7.5) Ur Specific [place] > 1.045 H (1.000-1.030) Urine Protein 2+ H (Negative) Urine Glucose (UA) 3+ H (Negative) Diagnostic Findings [facility], [id number] XRay Report Patient: MAEVE GARCIA Date: 02/[birth year]20MR#: [id number]: [address]Acct ID:[id number]: Date: 1955[facility] Zip: [place], [place] [address]Klz: 64Location: 1ESex: FRoom/Bed: [id number] Phy: Ada Santos, DODiagnosis: NAUSEA, VOMITING, DIARRHEA, FEVER, WEAK,Umm Phy: Scarlett Aguilar, HALLEervice Date: 02/28/20Fa Phy:Interpreting Phy: Nicholas Lombardo MDAdmit Phy: Juan Francisco Szymanski MD Ordering Phy: Jorge Muniz M.D. cc: ~ XR chest 1V portable HISTORY: weakness COMPARISON: Chest 12/26/2019. FINDINGS: Mild diffuse interstitial thickening which is likely chronic. No focal lung consolidations to suggest pneumonia. No pleural effusions. No pneumothorax. The heart is normal in size. IMPRESSION: No acute process. ACT 112: Negative or not required by law. Electronically signed by: Nicholas Lombardo M.D. 02/29/2020 8:10 AM Dictated: 02/29/20 0809Transcribed: 02/29/20 0809 Medications Administered Current Inpatient Medications Acetaminophen (Acetaminophen 325 Mg Tab) 650 mg PO Q4H PRN PRN Reason: MILD Pain (Scale 1,2,3) Stop: 03/30/20 01:01 Aspirin (Aspirin 81 Mg Ectab) [facility] [place]: 03/30/20 08:59 Last Admin: 02/29/20 08:29 Dose: 81 mg Documented by: Atorvastatin Calcium (Atorvastatin 40 Mg Tab) 80 mg PO DAILY [facility] Stop: 03/30/20 08:59 Last Admin: 02/29/20 08:29 Dose: 80 mg Documented by: Dextrose (Dextrose 50% 50 Ml Syringe) 25 - 50 ml IV UD PRN; Protocol PRN Reason: Hypoglycemia Protocol Stop: 03/30/20 01:56 Enoxaparin Sodium (Enoxaparin Inj 40 Mg/0.4 Ml Syr) 40 mg SQ QAM [facility] Stop: 03/30/20 08:59 Last Admin: 02/29/20 08:29 Dose: 40 mg Documented by: Glucagon (Glucagon For Inj 1 Mg Vial) 1 mg SQ UD PRN; Protocol PRN Reason: Hypoglycemia Protocol Stop: 03/30/20 01:56 Glucose (Glucose 10 Tabs/Tube) 4 - 8 tabs PO UD PRN; Protocol PRN Reason: Hypoglycemia Protocol Stop: 03/30/20 01:56 Glucose (Glucose 40% Gel 15 Gm Tube) 15 - 30 gm PO UD PRN; Protocol PRN Reason: Hypoglycemia Protocol Stop: 03/30/20 01:56 Promethazine HCl 12.5 mg/ (Sodium Chloride) 50.5 mls @ 202 mls/hr IV Q6H PRN PRN Reason: Nausea And Vomiting Stop: 03/30/20 01:59 Last Infusion: 02/29/20 12:07 Dose: Infused Documented by: Insulin Human Regular 250 (units/ Sodium Chloride) 250 mls @ 2.4 mls/hr IV .Q24H [facility]; Protocol Stop: 02/29/20 19:45 Last Titration: 02/29/20 13:40 Dose: 2.4 units/hr, 2.4 mls/hr Documented by: Insulin Aspart (Insulin Aspart 100 Units/Ml 3 Ml Pen) 0 units SC ACHS [facility] Stop: 02/29/20 19:45 Last Admin: 02/29/20 11:40 Dose: Not Given Documented by: Insulin Aspart (Insulin Aspart 100 Units/Ml 3 Ml Pen) 0 units SC Q4 [facility] Stop: 03/30/20 19:59 Insulin Glargine (Insulin Glargine Solostar 100 Units/Ml 3 Ml Pen) 0 units SC BID [facility]; Protocol Stop: 03/30/20 20:59 Lisinopril (Lisinopril 5 Mg Tab) 5 mg PO QAM [facility] Stop: 03/30/20 08:59 Last Admin: 02/29/20 08:29 Dose: 5 mg Documented by: Metoprolol Tartrate (Metoprolol Tartrate 25 Mg Tab) 25 mg PO BID [facility] Stop: 03/30/20 08:59 Last Admin: 02/29/20 08:29 Dose: 25 mg Documented by: Miscellaneous (Carbohydrates For Hypoglycemia ) 15 - 30 gm PO UD PRN PRN Reason: Hypoglycemia Protocol Stop: 03/30/20 01:56 Miscellaneous (D/C Iv Insulin Drip 6 Hrs After 1st Lantus Dose) 1 ea N/A TODAY@1945 ONE Stop: 02/29/20 19:46 Miscellaneous Information (Pharmacy Glycemic Mgmt Consult) 1 ea N/A UD PRN PRN Reason: Consult Stop: 03/30/20 06:54 Morphine Sulfate (Morphine Sulfate 2 Mg/Ml Carp) 2 mg IV Q3H PRN PRN Reason: Pain Stop: 03/14/20 01:58 Nitroglycerin (Nitroglycerin Sl 0.4 Mg/Tab Tab) 0.4 mg SL UD PRN PRN Reason: Chest Pain Stop: 03/30/20 01:09 Potassium Chloride (Potassium Chloride Crtab 20 Meq Tabcr) 60 meq PO BIDM [facility] Stop: 02/29/20 17:01 Last Admin: 02/29/20 11:40 Dose: 60 meq Documented by: Ticagrelor (Ticagrelor 90 Mg Tab) 90 mg PO BID [facility] Stop: 03/30/20 11:04 Last Admin: 02/29/20 11:40 Dose: 90 mg Documented by: Tramadol HCl (Tramadol Hcl 50 Mg Tablet) 25 - 50 mg PO Q4H PRN PRN Reason: Pain Stop: 03/30/20 01:58 (1) Hypertension Hypertension type: essential hypertension Qualified Code(s): I10 - Essential (primary) hypertension
--- NOTE | 2020-02-29 14:46 | Electrocardiogram Report ---
Test Reason : Blood Pressure : / mmHG Vent. Rate : 125 BPM Atrial Rate : 125 BPM P-R Int : 118 ms QRS Dur : 136 ms QT Int : 364 ms P-R-T Axes : 039 -86 049 degrees QTc Int : 525 ms Sinus tachycardia Left axis deviation Right bundle branch block Anterior injury pattern * ACUTE IN Abnormal ECG When compared with ECG of 28-DEC-2019 06:46, Significant changes have occurred Confirmed by Eze Marcus ([id number]) on 02/29/2020 2:45:43 PM Referred By: REFERRED SELF Confirmed By:Eze Marcus
--- NOTE | 2020-02-29 14:49 | Electrocardiogram Report ---
Test Reason : Blood Pressure : / mmHG Vent. Rate : 096 BPM Atrial Rate : 096 BPM P-R Int : 094 ms QRS Dur : 142 ms QT Int : 406 ms P-R-T Axes : 038 -76 013 degrees QTc Int : 512 ms Sinus rhythm with short ME Right bundle branch block Left anterior fascicular block Bifascicular block Anteroseptal infarct , possibly acute ACUTE AK / STEMI Abnormal ECG When compared with ECG of 28-FEB-2020 21:14, (unconfirmed) T wave inversion more evident in Anterior leads Confirmed by Eze Marcus ([id number]) on 02/29/2020 2:48:31 PM Referred By: REFERRED SELF Confirmed By:Eze Marcus
--- NOTE | 2020-02-29 14:50 | Electrocardiogram Report ---
Test Reason : Blood Pressure : / mmHG Vent. Rate : 082 BPM Atrial Rate : 082 BPM P-R Int : 092 ms QRS Dur : 138 ms QT Int : 444 ms P-R-T Axes : 045 -78 -01 degrees QTc Int : 518 ms Sinus rhythm with short HI Right bundle branch block Left anterior fascicular block Bifascicular block Septal infarct (cited on or before 28-FEB-2020) Anterior injury pattern Abnormal ECG When compared with ECG of 28-FEB-2020 22:53, (unconfirmed) Serial changes of Septal infarct Present Confirmed by Eze Marcus ([id number]) on 02/29/2020 2:50:02 PM Referred By: REFERRED SELF Confirmed By:Eze Marcus
[2020-02-29] MEDS: GABAPENTIN 300 MG CAP PO SCH ×2 (16:19→20:13)
[2020-02-29] MEDS: SERTRALINE HCL 100 MG TABLET PO SCH (16:19)
[2020-02-29] MEDS ORDERED: [UNRECOGNIZED DRUG - REMARK] ONE (19:45)
[2020-02-29] MEDS: INSULIN GLARGINE SOLOSTAR 100 UNITS/ML 3 ML PEN SC SCH (20:11)
[2020-02-29] MEDS: FAMOTIDINE 20 MG TAB PO SCH (20:13)
[2020-02-29] MEDS ORDERED: INSULIN GLARGINE SOLOSTAR 100 UNITS/ML 3 ML PEN SC SCH (21:00)
[2020-03-01] MEDS: INSULIN ASPART 100 UNITS/ML 3 ML PEN SC SCH ×6 (00:25→21:00)
[2020-03-01 05:46] LABS: Basophils # (auto) 0.01 K/uL (0-0.2); Basophils % (auto) 0.2 %; Eosinophils # (auto) 0.12 K/uL (0-0.5); Eosinophils % (auto) 1.9 %; Hematocrit (blood only) 31.4 % (37-47); Hemoglobin 10.4 g/dL (12.0-16.0); Immature Granulocytes # (auto) 0.03 K/uL (0.00-0.02); Immature Granulocytes % (auto) 0.5 %; Lymphocytes # (auto) 1.46 K/uL (1.2-3.4); Lymphocytes % (auto) 23.3 %; Mean Corpuscular Hemoglobin 30.5 pg (25-34); Mean Corpuscular Hgb Conc 33.1 g/dL (32-36); Mean Corpuscular Volume 92.1 fL (80-100); Mean Platelet Volume 9.8 fL (7.4-10.4); Neutrophils # (auto) 4.14 K/uL (1.4-6.5); Neutrophils % (auto) 66.1 %; Platelet Count 197 K/uL (130-400); RDW Coefficient of Variation 12.6 % (11.5-14.5); RDW Standard Deviation 41.9 fL (36.4-46.3); Red Blood Count 3.41 M/uL (4.2-5.4); White Blood Count 6.26 K/uL (4.8-10.8)
[2020-03-01 06:36] LABS: BUN Creatinine Ratio 22.7 (10-20); Creatinine Clr Calc Pharmacy 82.7 ml/min; Est GFR (African American) 102.3; Est GFR (Non-African American) 88.3; Potassium 4.4 mmol/L (3.5-5.1)
[2020-03-01] MEDS: SERTRALINE HCL 100 MG TABLET PO SCH (09:31)
[2020-03-01] MEDS: METOPROLOL TARTRATE 25 MG TAB PO SCH ×2 (09:31→20:04)
[2020-03-01] MEDS: ASPIRIN 81 MG ECTAB PO SCH (09:31)
[2020-03-01] MEDS: FAMOTIDINE 20 MG TAB PO SCH ×2 (09:31→20:04)
[2020-03-01] MEDS: TICAGRELOR 90 MG TAB PO SCH ×2 (09:31→20:04)
[2020-03-01] MEDS: lisinopril 5 MG TAB PO SCH (09:31)
[2020-03-01] MEDS: GABAPENTIN 300 MG CAP PO SCH ×3 (09:32→20:04)
[2020-03-01] MEDS: ATORVASTATIN 40 MG TAB PO SCH (09:32)
[2020-03-01] MEDS: ENOXAPARIN INJ 40 MG/0.4 ML SYR SQ SCH (09:32)
[2020-03-01] MEDS: INSULIN GLARGINE SOLOSTAR 100 UNITS/ML 3 ML PEN SC SCH ×2 (09:44→21:01)
--- NOTE | 2020-03-01 13:07 | Cardiology Progress Note ---
Date of Service March 01, 2020 Assessment & Plan (1) STEMI (ST elevation myocardial infarction): (2) Diabetes: (3) Hypertension: (4) Ischemic cardiomyopathy: Status post successful PCI in the setting of LAD STEMI. Echocardiogram shows significant hypokinesis of the LAD territory, hopefully, due to hibernating/stunned myocardium. No bleeding issues with aspirin and Brilinta. No ventricular arrhythmias on monitor, will require 72 hours total of telemetry monitoring status post event. Continue aspirin, Brilinta, metoprolol, lisinopril and atorvastatin. We will repeat limited echo in the a.m. to reassess wall motion. We will consider cardiac rehab upon discharge. Admission and Anticipated Discharge Date Admission Date: February 29, 2020 Subjective Patient seen and examined, chart reviewed. States that she feels well today. Somewhat anxious regarding problems with her oldest daughter but otherwise feeling well. Denies any cardiac complaints of chest pain, shortness of breath, palpitations, lightheadedness, dizziness or syncope. Telemetry reviewed: Normal sinus rhythm without arrhythmia or significant ventricular ectopy. Review of Systems Review of Systems: All systems reviewed & are unremarkable except as noted in HPI & below Physical Exam Physical Exam: General: Awake, alert and oriented x 3. No acute distress. HEENT: Normocephalic, atraumatic. Pupils equal, round and reactive to light and accommodation. Extraocular muscles are intact. Anicteric sclera. Moist mucous membranes. Neck: No JVD. No bruit. Cardiovascular: Regular. Positive S-4. Normal S-1 and S-2. No S-3. No murmurs or rubs. Pulmonary: Clear to auscultation B/L. No rales, rhonchi or wheezing Abdomen: Bowel sounds x 4, soft. No rebound, guarding or tenderness. No organomegaly. Extremities: No clubbing, cyanosis or edema. +2 pedal pulses bilaterally. Skin: Warm and dry. Results & Data ([place]) Vital Signs (Past 12 Hours) Vital Signs Temp Pulse Resp BP Pulse Ox 03/01/20 11:44 36.7 C 84 18 107/64 97 03/01/20 07:55 36.7 C 85 18 109/60 96 03/01/20 03:57 36.9 C 82 20 109/70 97 (1) Hypertension Hypertension type: essential hypertension Qualified Code(s): I10 - Essential (primary) hypertension
--- NOTE | 2020-03-01 13:47 | Pharmacy Report ---
Pharmacy Glycemic Short Note 2 - Date of Service March 01, 2020 - Glycemic Short BSG Results (Last 24 hours): 02/29/20 02/29/20 02/29/20 13:36 14:31 15:33 Glucose POC Glucose 163 H 145 H 127 H 02/29/20 02/29/20 02/29/20 16:18 20:08 23:52 Glucose POC Glucose 123 H 210 H 177 H 03/01/20 03/01/20 03/01/20 03:44 05:27 07:34 Glucose 133 H POC Glucose 150 H 121 H 03/01/20 11:22 Glucose POC Glucose 216 H OUTPATIENT ANTIDIABETIC REGIMEN: * Lantus 12 units Q HS * Novolog 3 units SQ w/ breakfast * Linagliptin 5mg daily * Metformin 1gm PO BID * A1c = 10.9% 02/29/20 ASSESSMENT: 03/01 * BSGs fairly well controlled over last 24 hrs after transition off insulin drip * BSG did climb to 210 at HS however down to 121 this AM with 39 units of basal on board + 7 units of correctional insulin overnight. Will increase basal dose and base estimate upon last 24 hr requirements * Post prandial BSGs did climb using CR 8, will adjust CR to allow for larger Novolog doses with meals 02/28 * Poorly controlled type 2 diabetic admitted for STEMI, now s/p PCI w/ DORIAN x 2 to LAD * Patient was started on IV insulin infusion per ICU protocol due to treatment resistant hyperglycemia. AG metabolic acidosis not present on this AM's chemistry. Infusion continues at this time @2.4 units/hr and BSGs are now near goal (goal range 110-180). Will add SQ basal insulin at this time with hopes of transitioning patient off of IV insulin infusion in the next 24 hours. Will base Lantus dosing upon weight and PLAN FOR INPATIENT GLYCEMIC CONTROL: * Hold outpatient oral diabetes medications (linagliptin, metformin) * Basal insulin * Lantus SQ BID per the following scale: * 0 units if BSG less than 110 * 20 units if BSG 110-200 * 25 units if BSG greater than 200 * Bolus insulin * NovoLog per scale ACHS * Goal Range: Low 110 mg/dL - High 140 mg/dL * Correction Factor: 20 mg/dL/unit * Nutritional / Prandial insulin per carb ratio of 1 unit per 6 grams CHO consumed PLAN FOR DISCHARGE: * Given recent A1c of 10.9%, there is room for improvement especially in light of recent STEMI. I suspect an increase in both basal and prandial insulin doses are required on discharge. Might consider increasing Lantus dose to 20 units Q HS, increase breakfast Novolog dose to 5 units, and resume home doses of Metformin and Linagliptin. These are small changes relative to insulin requirements since hospitalization, however we are not combining insulin with the oral agents the patient uses. Would recommend close f/u with PCP or Endocrinology to adjust Lantus + Novolog doses in the next 2 weeks.
--- NOTE | 2020-03-01 13:58 | Hospitalist Progress Note ---
Date of Service March 01, 2020 Assessment & Plan (1) STEMI (ST elevation myocardial infarction): Patient received 2 drug-eluting stents to LAD overnight with resolution of symptoms. Troponin has peaked and is trending down. Continue medical management of CAD per cardiology. Remains asymptomatic this morning Plan to repeat a limited echo tomorrow morning to assess LV function and all motion (2) Ischemic cardiomyopathy: Echocardiogram reveals ejection fraction 35 to 40%. Patient has crackles on exam at bases but is not hypoxic or working to breathe. Continue current medications including aspirin, Brilinta, metoprolol, lisinopril and atorvastatin (3) Vomiting and diarrhea: Likely secondary to illness including uncontrolled diabetes and STEMI Resolved (4) Hypertension: Around goal, continue current medical therapy. (5) Depression: Chronic, stable, restarted home sertraline and gabapentin. (6) DMII (diabetes mellitus, type 2): Appears to have resolved, however, patient is still nauseous and is on clear fluids. She is currently on an insulin drip for diabetes which is being medically managed by inpatient glycemic pharmacist. She is off the insulin drip and has been getting subcu insulin Blood sugar seems to be well controlled (7) DVT prophylaxis: Lovenox Full code Dispo-to home when medically stable, likely in the next 2 to 3 days. She cannot go unless cleared by cardiology. Likely discharge tomorrow Admission and Anticipated Discharge Date Admission Date: February 29, 2020 Subjective 03/01/2020 The patient was seen and examined in the telemetry unit She is a status post stent placement to the LAD following STEMI She has been feeling a lot better and denies any symptoms today Review of Systems Review of Systems: All systems reviewed and are unremarkable except as noted below Cardiovascular: no chest pain, no palpitations and no edema Physical Exam Physical Exam: Lying in bed without any acute distress Constitutional: well developed and well nourished; no acute distress and not ill appearing Eyes: PERRL, conjunctivae normal, anicteric sclerae ENMT: external ear and nose normal, oropharynx normal Neck: trachea midline, no thyromegaly Respiratory: normal respiratory effort; no respiratory distress Auscultation: lungs clear to auscultation bilaterally Cardiovascular: Rate/Rhythm: regular rate and regular rhythm Heart Sounds: no murmur Extremities: no edema Gastrointestinal (Abdomen): Inspection/Auscultation: abdomen normal to inspect ion and normal bowel sounds Percussion/Palpation: + abdomen tender and abdomen soft Musculoskeletal: No acute arthritis in any joint Neurologic: PERRL, EOMI, accommodation nl, no face palsy, no dysarthria Psychiatric: A+Ox3, euthymic affect Lymphatic: no cervical or axillary lymphadenopathy Results & Data Results & Data ([facility]) Vital Signs (Past 12 Hours) Vital Signs Temp Pulse Pulse Resp BP Pulse Ox 03/01/20 11:44 36.7 C 84 18 107/64 97 03/01/20 08:00 87 03/01/20 07:55 36.7 C 85 18 109/60 96 03/01/20 03:57 36.9 C 82 20 109/70 97 Laboratory Results Short CBC 03/01/20 Range/Units 05:27 WBC 6.26 (4.8-10.8) K/uL Hgb 10.4 L (12.0-16.0) g/dL Hct 31.4 L (37-47) % Plt Count 197 (130-400) K/uL BMP 03/01/20 05:27 Sodium 138 Potassium 4.4 D Chloride 110 H Carbon Dioxide 28 BUN 16 Creatinine 0.73 Glucose 133 H Calcium 8.0 L Cardiac Enzymes 02/29/20 Range/Units 12:52 Troponin I 48.500 H* (0-0.045) ng/ml Medications Administered Current Inpatient Medications Acetaminophen (Acetaminophen 325 Mg Tab) 650 mg PO Q4H PRN PRN Reason: MILD Pain (Scale 1,2,3) Stop: 03/30/20 01:01 Aspirin (Aspirin 81 Mg Ectab) 81 mg PO QAM [facility] Stop: 03/30/20 08:59 Last Admin: 03/01/20 09:31 Dose: 81 mg Documented by: Atorvastatin Calcium (Atorvastatin 40 Mg Tab) 80 mg PO DAILY [facility] Stop: 03/30/20 08:59 Last Admin: 03/01/20 09:32 Dose: 80 mg Documented by: Dextrose (Dextrose 50% 50 Ml Syringe) 25 - 50 ml IV UD PRN; Protocol PRN Reason: Hypoglycemia Protocol Stop: 03/30/20 01:56 Enoxaparin Sodium (Enoxaparin Inj 40 Mg/0.4 Ml Syr) 40 mg SQ QAM [facility] Stop: 03/30/20 08:59 Last Admin: 03/01/20 09:32 Dose: 40 mg Documented by: Famotidine (Famotidine 20 Mg Tab) 20 mg PO BID [facility] Stop: 03/30/20 20:59 Last Admin: 03/01/20 09:31 Dose: 20 mg Documented by: Gabapentin (Gabapentin 300 Mg Cap) 300 mg PO TID [facility] Stop: 03/30/20 15:14 Last Admin: 03/01/20 09:32 Dose: 300 mg Documented by: Glucagon (Glucagon For Inj 1 Mg Vial) 1 mg SQ UD PRN; Protocol PRN Reason: Hypoglycemia Protocol Stop: 03/30/20 01:56 Glucose (Glucose 10 Tabs/Tube) 4 - 8 tabs PO UD PRN; Protocol PRN Reason: Hypoglycemia Protocol Stop: 03/30/20 01:56 Glucose (Glucose 40% Gel 15 Gm Tube) 15 - 30 gm PO UD PRN; Protocol PRN Reason: Hypoglycemia Protocol Stop: 03/30/20 01:56 Promethazine HCl 12.5 mg/ (Sodium Chloride) 50.5 mls @ 202 mls/hr IV Q6H PRN PRN Reason: Nausea And Vomiting Stop: 03/30/20 01:59 Last Infusion: 02/29/20 12:07 Dose: Infused Documented by: Insulin Aspart (Insulin Aspart 100 Units/Ml 3 Ml Pen) 0 units SC ACHS [facility] Stop: 03/31/20 16:29 Insulin Glargine (Insulin Glargine Solostar 100 Units/Ml 3 Ml Pen) 0 units SC BID [facility]; Protocol Stop: 03/30/20 20:59 Last Admin: 03/01/20 09:44 Dose: 20 units Documented by: Lisinopril (Lisinopril 5 Mg Tab) 5 mg PO QAM [facility] Stop: 03/30/20 08:59 Last Admin: 03/01/20 09:31 Dose: 5 mg Documented by: Metoprolol Tartrate (Metoprolol Tartrate 25 Mg Tab) 25 mg PO BID [facility] Stop: 03/30/20 08:59 Last Admin: 03/01/20 09:31 Dose: 25 mg Documented by: Miscellaneous (Carbohydrates For Hypoglycemia ) 15 - 30 gm PO UD PRN PRN Reason: Hypoglycemia Protocol Stop: 03/30/20 01:56 Miscellaneous Information (Pharmacy Glycemic Mgmt Consult) 1 ea N/A UD PRN PRN Reason: Consult Stop: 03/30/20 06:54 Morphine Sulfate (Morphine Sulfate 2 Mg/Ml Carp) 2 mg IV Q3H PRN PRN Reason: Pain Stop: 03/14/20 01:58 Nitroglycerin (Nitroglycerin Sl 0.4 Mg/Tab Tab) 0.4 mg SL UD PRN PRN Reason: Chest Pain Stop: 03/30/20 01:09 Sertraline HCl (Sertraline Hcl 100 Mg Tablet) 100 mg PO DAILY [facility] Stop: 03/30/20 15:14 Last Admin: 03/01/20 09:31 Dose: 100 mg Documented by: Ticagrelor (Ticagrelor 90 Mg Tab) 90 mg PO BID [facility] Stop: 03/30/20 11:04 Last Admin: 03/01/20 09:31 Dose: 90 mg Documented by: Tramadol HCl (Tramadol Hcl 50 Mg Tablet) 25 - 50 mg PO Q4H PRN PRN Reason: Pain Stop: 03/30/20 01:58
[2020-03-02 07:47] LABS: Basophils # (auto) 0.02 K/uL (0-0.2); Basophils % (auto) 0.3 %; Eosinophils # (auto) 0.15 K/uL (0-0.5); Eosinophils % (auto) 2.5 %; Hematocrit (blood only) 29.8 % (37-47); Hemoglobin 10.1 g/dL (12.0-16.0); Immature Granulocytes # (auto) 0.02 K/uL (0.00-0.02); Immature Granulocytes % (auto) 0.3 %; Lymphocytes # (auto) 1.85 K/uL (1.2-3.4); Lymphocytes % (auto) 31.1 %; Mean Corpuscular Hemoglobin 31.2 pg (25-34); Mean Corpuscular Hgb Conc 33.9 g/dL (32-36); Mean Platelet Volume 9.9 fL (7.4-10.4); Monocytes # (auto) 0.58 K/uL (0.11-0.59); Monocytes % (auto) 9.8 %; Neutrophils # (auto) 3.32 K/uL (1.4-6.5); Platelet Count 184 K/uL (130-400); RDW Coefficient of Variation 12.5 % (11.5-14.5); RDW Standard Deviation 42.1 fL (36.4-46.3); Red Blood Count 3.24 M/uL (4.2-5.4); White Blood Count 5.94 K/uL (4.8-10.8)
[2020-03-02] MEDS: ASPIRIN 81 MG ECTAB PO SCH (08:21)
[2020-03-02] MEDS: METOPROLOL TARTRATE 25 MG TAB PO SCH (08:21)
[2020-03-02] MEDS: TICAGRELOR 90 MG TAB PO SCH (08:21)
[2020-03-02] MEDS: lisinopril 5 MG TAB PO SCH (08:21)
[2020-03-02] MEDS: GABAPENTIN 300 MG CAP PO SCH (08:22)
[2020-03-02] MEDS: ATORVASTATIN 40 MG TAB PO SCH (08:22)
[2020-03-02] MEDS: ENOXAPARIN INJ 40 MG/0.4 ML SYR SQ SCH (08:22)
[2020-03-02] MEDS: SERTRALINE HCL 100 MG TABLET PO SCH (08:24)
[2020-03-02] MEDS: FAMOTIDINE 20 MG TAB PO SCH (08:24)
[2020-03-02] MEDS: INSULIN ASPART 100 UNITS/ML 3 ML PEN SC SCH (08:25)
[2020-03-02 08:30] LABS: BUN Creatinine Ratio 29.1 (10-20); Calcium 9.3 mg/dl (8.5-10.1); Creatinine Clr Calc Pharmacy 81.2 ml/min; Est GFR (African American) 100.6; Est GFR (Non-African American) 86.8; Magnesium 2.2 mg/dl (1.8-2.4); Potassium 4.4 mmol/L (3.5-5.1)
--- NOTE | 2020-03-02 10:20 | Hospitalist Progress Note ---
Date of Service March 02, 2020 Assessment & Plan (1) STEMI (ST elevation myocardial infarction): Patient received 2 drug-eluting stents to LAD overnight with resolution of symptoms. Troponin has peaked and is trending down. Continue medical management of CAD per cardiology. Remains asymptomatic this morning Plan to repeat a limited echo tomorrow morning to assess LV function and all motion Evaluated by associate director financial aid this morning and was advised that he can be discharged She will have outpatient cardiology appointment for follow-up (2) Ischemic cardiomyopathy: Echocardiogram reveals ejection fraction 35 to 40%. Patient has crackles on exam at bases but is not hypoxic or working to breathe. Continue current medications including aspirin, Brilinta, metoprolol, lisinopril and atorvastatin Remains asymptomatic (3) Vomiting and diarrhea: Likely secondary to illness including uncontrolled diabetes and STEMI Resolved (4) Hypertension: Around goal, continue current medical therapy. (5) Depression: Chronic, stable, restarted home sertraline and gabapentin. Blood pressure is controlled (6) DMII (diabetes mellitus, type 2): Appears to have resolved, however, patient is still nauseous and is on clear fluids. She is currently on an insulin drip for diabetes which is being medically managed by inpatient glycemic pharmacist. She is off the insulin drip and has been getting subcu insulin Blood sugar seems to be well controlled (7) DVT prophylaxis: Lovenox Full code Dispo-to home when medically stable, likely in the next 2 to 3 days. She cannot go unless cleared by cardiology. She will be discharged this morning Admission and Anticipated Discharge Date Admission Date: February 29, 2020 Subjective 03/01/2020 The patient was seen and examined in the telemetry unit She is a status post stent placement to the LAD following STEMI She has been feeling a lot better and denies any symptoms today 03/02/2020 The patient was seen and examined in telemetry unit She remains stable without any symptoms She has been ambulating in the room and hallway without any symptoms She will be discharged this morning Review of Systems Review of Systems: All systems reviewed and are unremarkable except as noted below Cardiovascular: no chest pain and no palpitations Physical Exam Physical Exam: Sitting on a chair without any apparent distress Constitutional: well developed and well nourished; no acute distress and not ill appearing Eyes: PERRL, conjunctivae normal, anicteric sclerae ENMT: external ear and nose normal, oropharynx normal Neck: trachea midline, no thyromegaly Respiratory: normal respiratory effort; no respiratory distress Auscultation: lungs clear to auscultation bilaterally Cardiovascular: Rate/Rhythm: regular rate and regular rhythm Heart Sounds: no murmur Extremities: no edema Gastrointestinal (Abdomen): Inspection/Auscultation: abdomen normal to inspection and normal bowel sounds Percussion/Palpation: + abdomen tender and abdomen soft Musculoskeletal: No acute arthritis in any joint Neurologic: PERRL, EOMI, accommodation nl, no face palsy, no dysarthria Psychiatric: A+Ox3, euthymic affect Lymphatic: no cervical or axillary lymphadenopathy Results & Data Results & Data ([facility]) Vital Signs (Past 12 Hours) Vital Signs Temp Pulse Pulse Resp BP Pulse Ox 03/02/20 08:00 77 03/02/20 07:38 36.7 C 78 16 102/64 95 03/02/20 07:09 77 03/02/20 03:16 115/65 03/02/20 02:59 36.7 C 84 18 95/58 L 97 03/01/20 23:20 36.7 C 78 16 108/70 97 03/01/20 22:20 79 Laboratory Results Short CBC 03/02/20 Range/Units 07:11 WBC 5.94 (4.8-10.8) K/uL Hgb 10.1 L (12.0-16.0) g/dL Hct 29.8 L (37-47) % Plt Count 184 (130-400) K/uL BMP 03/02/20 07:11 Sodium 139 Potassium 4.4 Chloride 110 H Carbon Dioxide 23 BUN 22 H Creatinine 0.74 Glucose 80 Calcium 9.3 D Medications Administered Current Inpatient Medications Acetaminophen (Acetaminophen 325 Mg Tab) 650 mg PO Q4H PRN PRN Reason: MILD Pain (Scale 1,2,3) Stop: 03/30/20 01:01 Aspirin (Aspirin 81 Mg Ectab) 81 mg PO QAM [facility] Stop: 03/30/20 08:59 Last Admin: 03/02/20 08:21 Dose: 81 mg Documented by: Atorvastatin Calcium (Atorvastatin 40 Mg Tab) 80 mg PO DAILY [facility] Stop: 03/30/20 08:59 Last Admin: 03/02/20 08:22 Dose: 80 mg Documented by: Dextrose (Dextrose 50% 50 Ml Syringe) 25 - 50 ml IV UD PRN; Protocol PRN Reason: Hypoglycemia Protocol Stop: 03/30/20 01:56 Enoxaparin Sodium (Enoxaparin Inj 40 Mg/0.4 Ml Syr) 40 mg SQ QAM [facility] Stop: 03/30/20 08:59 Last Admin: 03/02/20 08:22 Dose: 40 mg Documented by: Famotidine (Famotidine 20 Mg Tab) 20 mg PO BID [facility] Stop: 03/30/20 20:59 Last Admin: 03/02/20 08:24 Dose: 20 mg Documented by: Gabapentin (Gabapentin 300 Mg Cap) 300 mg PO TID [facility] Stop: 03/30/20 15:14 Last Admin: 03/02/20 08:22 Dose: 300 mg Documented by: Glucagon (Glucagon For Inj 1 Mg Vial) 1 mg SQ UD PRN; Protocol PRN Reason: Hypoglycemia Protocol Stop: 03/30/20 01:56 Glucose (Glucose 10 Tabs/Tube) 4 - 8 tabs PO UD PRN; Protocol PRN Reason: Hypoglycemia Protocol Stop: 03/30/20 01:56 Glucose (Glucose 40% Gel 15 Gm Tube) 15 - 30 gm PO UD PRN; Protocol PRN Reason: Hypoglycemia Protocol Stop: 03/30/20 01:56 Promethazine HCl 12.5 mg/ (Sodium Chloride) 50.5 mls @ 202 mls/hr IV Q6H PRN PRN Reason: Nausea And Vomiting Stop: 03/30/20 01:59 Last Infusion: 02/29/20 12:07 Dose: Infused Documented by: Insulin Aspart (Insulin Aspart 100 Units/Ml 3 Ml Pen) 0 units SC ACHS [facility] Stop: 03/31/20 16:29 Last Admin: 03/02/20 08:25 Dose: 4 units Documented by: Insulin Glargine (Insulin Glargine Solostar 100 Units/Ml 3 Ml Pen) 0 units SC BID [facility]; Protocol Stop: 03/30/20 20:59 Last Admin: 03/01/20 21:01 Dose: 20 units Documented by: Lisinopril (Lisinopril 5 Mg Tab) 5 mg PO QAM [facility] Stop: 03/30/20 08:59 Last Admin: 03/02/20 08:21 Dose: 5 mg Documented by: Metoprolol Tartrate (Metoprolol Tartrate 25 Mg Tab) 25 mg PO BID [facility] Stop: 03/30/20 08:59 Last Admin: 03/02/20 08:21 Dose: 25 mg Documented by: Miscellaneous (Carbohydrates For Hypoglycemia ) 15 - 30 gm PO UD PRN PRN Reason: Hypoglycemia Protocol Stop: 03/30/20 01:56 Miscellaneous Information (Pharmacy Glycemic Mgmt Consult) 1 ea N/A UD PRN PRN Reason: Consult Stop: 03/30/20 06:54 Morphine Sulfate (Morphine Sulfate 2 Mg/Ml Carp) 2 mg IV Q3H PRN PRN Reason: Pain Stop: 03/14/20 01:58 Nitroglycerin (Nitroglycerin Sl 0.4 Mg/Tab Tab) 0.4 mg SL UD PRN PRN Reason: Chest Pain Stop: 03/30/20 01:09 Sertraline HCl (Sertraline Hcl 100 Mg Tablet) 100 mg PO DAILY [facility] Stop: 03/30/20 15:14 Last Admin: 03/02/20 08:24 Dose: 100 mg Documented by: Ticagrelor (Ticagrelor 90 Mg Tab) 90 mg PO BID [facility] Stop: 03/30/20 11:04 Last Admin: 03/02/20 08:21 Dose: 90 mg Documented by: Tramadol HCl (Tramadol Hcl 50 Mg Tablet) 25 - 50 mg PO Q4H PRN PRN Reason: Pain Stop: 03/30/20 01:58
--- NOTE | 2020-03-02 10:39 | Cardiology Progress Note ---
Date of Service March 02, 2020 Assessment & Plan (1) STEMI (ST elevation myocardial infarction): (2) Diabetes: (3) Hypertension: (4) Ischemic cardiomyopathy: Status post successful PCI in the setting of LAD STEMI. Echocardiogram shows significant hypokinesis of the LAD territory, hopefully, due to hibernating/stunned myocardium. Slight improvement on echocardiogram of 03/02/2020. No ventricular arrhythmias or significant ectopy on telemetry since PCI. No bleeding issues with aspirin and Brilinta. Continue aspirin, Brilinta, metoprolol, lisinopril and atorvastatin. We will consider cardiac rehab upon discharge. Okay to discharge to home from a cardiac standpoint. My office will call to arrange follow-up in the next 1 to 2 weeks. Admission and Anticipated Discharge Date Admission Date: February 29, 2020 Subjective Patient seen and examined, chart reviewed. Patient states that she feels well today. Denies any complaints specifically denying any chest pain, shortness of breath, palpitations, lightheadedness, dizziness or syncope. Telemetry reviewed: Normal sinus rhythm without arrhythmia or significant ventricular ectopy. Review of Systems Review of Systems: All systems reviewed & are unremarkable except as noted in HPI & below Physical Exam Physical Exam: General: Awake, alert and oriented x 3. No acute distress. HEENT: Normocephalic, atraumatic. Pupils equal, round and reactive to light and accommodation. Extraocular muscles are intact. Anicteric sclera. Moist mucous membranes. Neck: No JVD. No bruit. Cardiovascular: Regular. Positive S-4. Normal S-1 and S-2. No S-3. No murmurs or rubs. Pulmonary: Clear to auscultation B/L. No rales, rhonchi or wheezing Abdomen: Bowel sounds x 4, soft. No rebound, guarding or tenderness. No organomegaly. Extremities: No clubbing, cyanosis or edema. +2 pedal pulses bilaterally. Skin: Warm and dry. Results & Data ([facility]) Vital Signs (Past 12 Hours) Vital Signs Temp Pulse Pulse Resp BP Pulse Ox 03/02/20 08:00 77 03/02/20 07:38 36.7 C 78 16 102/64 95 03/02/20 07:09 77 03/02/20 03:16 115/65 03/02/20 02:59 36.7 C 84 18 95/58 L 97 03/01/20 23:20 36.7 C 78 16 108/70 97 (1) Hypertension Hypertension type: essential hypertension Qualified Code(s): I10 - Essential (primary) hypertension
--- NOTE | 2020-03-03 08:25 | Discharge Summary ---
Date of Service March 03, 2020 Admission HPI Per Admitting Provider History obtained from patient and records. Medical history significant for nonocclusive CAD, hypertension, hyperlipidemia, DM2 insulin requiring, GERD, chronic anemia (baseline hemoglobin of 11), mood disorder, past tobacco abuse. Last confinement December 2019 for chest pain attributed to uncontrolled hypertension. HCTZ added to home regimen. Recent ER visit 3 days ago for left ankle swelling. Soft tissue swelling on left ankle x-ray. Patient discharged home with Robbie wrap placement. 2 days history of bilious emesis and watery diarrhea symptoms without unusual abdominal discomfort. No fever, no chills. No chest pain, no S OB. At some point patient noted some discomfort in the left arm. At the ER, initial troponin noted to be 4. EKG showed ST elevation the anterior leads. Heart alert called. Patient underwent emergent cardiac catheterization and subsequent PCI. 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 Admission Exam Per Admitting Provider Physical Exam: GENERAL: Slightly uncomfortable, no respiratory distress SKIN: Normal color, warm HEENT: Bespectacled, pink palpebral conjunctivae, no ptosis, dry buccal mucosa NECK : Supple, no tenderness CHEST : CTA, no tenderness HEART : RRR, no obvious murmurs ABDOMEN: Some distention, nontender EXTREMITIES : No LE swelling/tenderness, no other conspicuous deformities noted NEUROLOGIC : Coherent, no facial asymmetry, no other gross focality Principal Diagnosis NSTEMI, status post cardiac cath with successful PCI in LAD, ischemic cardiomyopathy, hypertension, type 2 diabetes Discharge Exam Constitutional well developed and well nourished; no acute distress and not ill appearing Eyes PERRL, conjunctivae normal, anicteric sclerae ENMT external ear and nose normal, oropharynx normal Neck trachea midline, no thyromegaly Respiratory normal respiratory effort; no respiratory distress Auscultation: lungs clear to auscultation bilaterally Cardiovascular Rate/Rhythm: regular rate and regular rhythm Heart Sounds: no murmur Extremities: no edema Gastrointestinal (Abdomen) Inspection/Auscultation: abdomen normal to inspection and normal bowel sounds Percussion/Palpation: + abdomen tender and abdomen soft Neurologic PERRL, EOMI, accommodation nl, no face palsy, no dysarthria Psychiatric A+Ox3, euthymic affect Lymphatic no cervical or axillary lymphadenopathy Discharge Data Allergies Allergy/AdvReac Type Severity Reaction Status Date / Time hydrocodone Allergy Mild UNK Verified 02/28/20 23:10 milk Allergy Unknown Unknown Verified 02/28/20 23:10 pine nut Allergy Verified 02/29/20 11:50 pine Allergy Unknown Unknown Uncoded 02/28/20 23:10 Consultations 02/28/20 23:10 ED Decision to Admit Stat 02/29/20 01:06 Consult Cardiac Rehabilitation Routine 02/29/20 01:07 Consult Case Management - Discharge Planning Routine Consult School Plant Consultant Routine 02/29/20 12:35 Consult Cardiology Routine Procedures Performed Operation Date: 02/28/20 23:20 Actual Procedures p Aspiration/PCI w/BMS for Stemi - John Szymanski MD s Cineradiography w/Routine Exam - John Szymanski MD s IVUS Coronary Single Vessel - John Szymanski MD p Cardiac Heart Alert - John Szymanski MD s Cath, Left with Cors and Vent - John Szymanski MD Ordered Studies 02/28/20 23:24 CL Cath Imgs for PACS use only Stat 02/29/20 01:21 CL IVUS Coronary Single Vessel Routine Diabetes Follow up Diabetes Follow-up Needed for HgbA1c >9% Hospital Course (1) STEMI (ST elevation myocardial infarction): Patient received 2 drug-eluting stents to LAD overnight with resolution of symptoms. Troponin has peaked and is trending down. Continue medical management of CAD per cardiology. Remains asymptomatic this morning Plan to repeat a limited echo tomorrow morning to assess LV function and all motion Evaluated by dye reel operator helper this morning and was advised that he can be discharged She will have outpatient cardiology appointment for follow-up (2) Ischemic cardiomyopathy: Echocardiogram reveals ejection fraction 35 to 40%. Patient has crackles on exam at bases but is not hypoxic or working to breathe. Continue current medications including aspirin, Brilinta, metoprolol, lisinopril and atorvastatin Remains asymptomatic (3) Vomiting and diarrhea: Likely secondary to illness including uncontrolled diabetes and STEMI Resolved (4) Hypertension: Around goal, continue current medical therapy. (5) Depression: Chronic, stable, restarted home sertraline and gabapentin. Blood pressure is controlled (6) DMII (diabetes mellitus, type 2): Appears to have resolved, however, patient is still nauseous and is on clear fluids. She is currently on an insulin drip for diabetes which is being medically managed by inpatient glycemic pharmacist. She is off the insulin drip and has been getting subcu insulin Blood sugar seems to be well controlled (7) DVT prophylaxis: Lovenox Full code Dispo-to home when medically stable, likely in the next 2 to 3 days. She cannot go unless cleared by cardiology. She will be discharged this morning Total Time Total Time Spent Total Time Spent (In Minutes): 35 minutes Total Time Includes: Examination of the Patient, Discharge Planning, Medication Reconciliation and Communication With Other Providers Discharge Plan Discharge Items Patient Disposition: Home - Self-Care Reason For Visit: NAUSEA, VOMITING, DIARRHEA, FEVER, WEAK, Discharge Diagnosis: NSTEMI, status post cardiac cath with successful PCI in LAD, ischemic cardiomyopathy, hypertension, type 2 diabetes Condition on Discharge: Good Activity: As commented below Non-emergency contact: Primary Care Provider Call non-emergency contact if: you have any medication questions Follow-up/Referrals: Scarlett Aguilar MD [Primary Care Provider] - (Date & Time 03/06/2020 11:20 AM Provider Prashant Dinh MD Department Internal Medicine [facility] ) Diet: Carb Consistent or DM2 and Heart Healthy Addtl Attending Provider Instructions: ACTIVITY RECOMMENDATIONS: Excess manipulation of the wrist should be avoided for the next 24-48 hours. * No lifting over 2 pounds (approximately a 1/2 gallon of milk) with the utilized arm for 24 hours. * No strenuous activity such as bowling or tennis for 3 days. * Keep the site of the procedure covered with a bandage for 24 hours. *You may shower the day after the procedure. Do not take a tub bath or submerge the puncture site in water for the next 3 days. *Do not operate any motorized equipment for 3 days. SPECIAL CARE INSTRUCTIONS: The site may be slightly bruised and sore following your procedure. Should any of the following occur, contact the Dr. who performed your procedure. 1. Redness/inflammation, swelling, chills, or fever, or colored drainage at procedure site within 3-7 days after your procedure. 2. Coldness, discoloration, ongoing numbness, severe pain, or swelling. Expect mild tingling of hand and tenderness at the puncture site for up to three days. If this persists beyond three days, or other symptoms develop, notify the Dr. who performed your procedure. BLEEDING: If the procedure site on your wrist begins to bleed, do not panic 1. Place 1 or 2 fingers firmly just slightly above the insertion site to stop the bleeding. You may be able to feel your pulse as you hold pressure. 2. Lift your finger after 5 minutes to see if the bleeding has stopped. 3. Once the bleeding has stopped, gently wipe the wrist area clean with a bandage. * If the bleeding from your wrist does not stop after 10 minutes, or if there is a large amount of bleeding or spurting, call 911 (do not drive yourself to the hospital). SKIN IRRITATION: * You may experience some redness and/or swelling in the area where radiation was administered. If any skin irritation occurs, please contact your family physician. FOLLOW UP VISIT: Keep any scheduled doctor appointments. Pending Studies at Discharge: No Stand-Alone Forms: My [id number], Smoking Cessation Medications and DC Order Prescriptions: New Brilinta 90 mg Tablet 90 mg PO BID Qty: 60 RF: 0 lisinopril [Zestril] 5 mg Tablet 5 mg PO QAM Qty: 30 RF: 0 metoprolol tartrate 25 mg Tablet 25 mg PO BID Qty: 60 RF: 0 Continued metformin 1,000 mg Tablet 1,000 mg PO BIDM Qty: 0 RF: 0 atorvastatin 80 mg Tablet 80 mg PO DAILY RF: 0 aspirin 81 mg Tablet,Delayed Release (Dr/Ec) 81 mg PO DAILY RF: 0 famotidine 20 mg Tablet 20 mg PO BID RF: 0 oxybutynin chloride 5 mg Tablet 5 mg PO DAILY RF: 0 Lantus Solostar U-100 Insulin 100 unit/mL (3 mL) insulin pen 12 unit SUBCUT PM Qty: 15 RF: 0 nitroglycerin 0.4 mg tablet, sublingual 0.4 mg sublingual UD PRN (Reason: Chest Pain) RF: 0 Tradjenta 5 mg tablet 5 mg PO DAILY RF: 0 sertraline 100 mg tablet 100 mg PO DAILY RF: 0 gabapentin 300 mg capsule 300 mg PO TID RF: 0 hydroxyzine pamoate 25 mg Capsule 25 mg PO TID PRN (Reason: Itching) RF: 0 insulin aspart U-100 [Novolog Flexpen U-100 Insulin] 100 unit/mL (3 mL) Insulin Pen 3 unit SUBCUT DAILYBB RF: 0 Discontinued lisinopril 10 mg Tablet 10 mg PO DAILY RF: 0 metoprolol tartrate 50 mg tablet 50 mg PO BID RF: 0 hydrochlorothiazide 25 mg Tablet 12.5 mg PO QAM 30 Days Qty: 15 RF: 2 Discharge Orders: Discharge Order (Routine); Ordered 03/02/20 Ordered By: Elisa Trent/Other Patient Handouts: Ticagrelor oral tablet Admission Data Admit Date/Time: 02/29/20 01:07 Attending Provider: Elisa Navarrete Admit Provider: John Szymanski Primary Care Provider: Scarlett Aguilar Other Providers: Lamin Weeks ; Alexey Cornelius ; Chucky Trammell ; Ada Santos Other Interventions: Discharge Summary Assessment (RN) Last Done: 03/02/20 10:38
== END 2020-03-02 11:55 | disposition home or self-care (01) | DRG 247 ==
LOC: ED 17:14 → CC 23:40 → 1E 02-29 01:07 → SUATTDRO 02-29 01:07 → 2S 03-01 18:08

== ENCOUNTER 2020-05-04 20:42 | Observation (INO) ==
[2020-05-04] MEDS ORDERED: ASPIRIN CHEW 324 MG PO STA (21:16)
[2020-05-04 21:34] LABS: Basophils # (auto) 0.02 K/uL (0-0.2); Basophils % (auto) 0.4 %; Eosinophils % (auto) 1.8 %; Hematocrit (blood only) 30.2 % (37-47); Hemoglobin 9.8 g/dL (12.0-16.0); Immature Granulocytes # (auto) 0.03 K/uL (0.00-0.02); Immature Granulocytes % (auto) 0.5 %; Lymphocytes # (auto) 1.67 K/uL (1.2-3.4); Lymphocytes % (auto) 30.1 %; Mean Corpuscular Hemoglobin 30.2 pg (25-34); Mean Corpuscular Hgb Conc 32.5 g/dL (32-36); Mean Corpuscular Volume 92.9 fL (80-100); Mean Platelet Volume 10.1 fL (7.4-10.4); Monocytes # (auto) 0.26 K/uL (0.11-0.59); Monocytes % (auto) 4.7 %; Neutrophils # (auto) 3.47 K/uL (1.4-6.5); Neutrophils % (auto) 62.5 %; Platelet Count 221 K/uL (130-400); RDW Coefficient of Variation 13.4 % (11.5-14.5); RDW Standard Deviation 45.5 fL (36.4-46.3); Red Blood Count 3.25 M/uL (4.2-5.4); White Blood Count 5.55 K/uL (4.8-10.8)
[2020-05-04 21:42] LABS: Alanine Aminotransferase 12 U/L (12-78); Albumin Level 3.4 gm/dl (3.4-5.0); Aspartate Aminotransferase 7 U/L (15-37); BUN Creatinine Ratio 26.8 (10-20); Blood Urea Nitrogen 22 mg/dl (7-18); Calcium 8.4 mg/dl (8.5-10.1); Carbon Dioxide 23 mmol/L (21-32); Chloride 108 mmol/L (98-107); Creatinine Clr Calc Pharmacy 70.4 ml/min; Est GFR (African American) 88.9; Est GFR (Non-African American) 76.7; Glucose 157 mg/dl (70-99); Potassium 4.1 mmol/L (3.5-5.1); Sodium 140 mmol/L (136-145)
--- NOTE | 2020-05-04 21:44 | Emergency Department Note ---
Impression & Plan Chest pain, Abnormal EKG, Anemia ED Provider Note NAME: MAEVE GARCIA AGE: 64 SEX: F : 1955 ARRIVES VIA: Ambulance INFORMANT: Patient, ED PROVIDER(S): Eze Campuzano DO CHIEF COMPLAINT: Chest pain HPI: The patient is a 64-year-old female who has a history of diabetes as well as coronary artery disease who presented to the emergency department for an evaluation of chest pain. The patient describes episodes of chest pain she noticed over the weekend. It was not necessarily associated with exertion. She denies having any lower extremity pain. She states that she did note some fluid retention in her lower extremities. She states that she had similar symptoms last fall when she had a cardiac catheterization requiring stenting. She denies having any chest pain at this time. She arrived via ambulance but did not have any aspirin prior to arrival. She states the pain is sometimes worsened with lying flat. She denies having any exertional chest pain. She denies having any recent fevers or chills. She has no cough. She is had no exposure to COVID-19. She called the ambulance this evening because she was discussing her symptoms with her neighbor who felt that she needed to be evaluated. She does note some radiation to her upper extremities when she has the pain. ROS: See above HPI for pertinent positives & negatives. A total of 10 systems reviewed and were otherwise negative. PAST MEDICAL HISTORY: See Below PAST SURGICAL HISTORY: See Below FAMILY HISTORY: See Below SOCIAL HISTORY: See Below HOME MEDICATIONS: See Below ALLERGIES: See Below VITALS: See Below PHYSICAL EXAMINATION: GENERAL: Patient is awake alert in no acute distress patient is resting comfortably and showing no signs of anxiety EYES: The conjunctivae are clear. The pupils are round and reactive. EARS, NOSE, MOUTH AND THROAT: The nose is without any evidence of any deformity. NECK: The neck is nontender and supple. RESPIRATORY: Normal respiratory effort is noted there is no evidence of wheezing rhonchi or rales CARDIOVASCULAR: Regular rate and rhythm noted there no murmurs rubs or gallops normal S1 normal S2. GASTROINTESTINAL: The abdomen is soft. Abdomen is nontender. MUSCULOSKELETAL/EXTREMITIES: There is no evidence of gross deformity full range of motion is noted in the hips and shoulders. SKIN: There is no obvious evidence of any rash. Trace pedal edema was noted bilaterally. NEUROLOGIC: Patient is awake alert and oriented x3. MEDICAL DECISION MAKING: The patient is a 64-year-old female who presented to the emergency department for an evaluation of chest pain. The patient was experiencing chest discomfort over the weekend. She states that this time she has no pain but was concerned because of lower extremity swelling and this is why she called the ambulance. The patient had an acute coronary syndrome last fall. The patient was found to have an EKG with T wave abnormalities that could be consistent with ischemia. At this time she has no pain. Troponin was negative. She has no tachycardia or shortness of breath at this time. I discussed the patient's condition with her. I also discussed the limitations of the emergency department work-up for chest pain with her. Given her risk factors and findings in the emergency department I [facility] have agreed to evaluate the patient in the emergency department for further management and disposition. Triage Nursing notes reviewed. Prior medical records reviewed Vital Signs: reviewed and remarkable for hypertension. Differential diagnosis: Cardiac ischemia, aortic dissection, pulmonary embolism, pneumothorax, pneumonia, pericarditis, myocarditis, esophageal rupture, GERD, cholecystitis, pancreatitis, musculoskeletal, as well as other pathologies. ER treatment provided: See below Diagnostics interpreted by me: ECG: EKG was obtained in the emergency department. My interpretation is sinus rhythm at 79 bpm. PACs were noted. Inferior ST depressions were noted. Anterior T wave versions were also noted. This was compared to a tracing from February 282019. There was a similar ischemia pattern noted in the anterior leads. Cardiac Monitoring: An order was placed for continuous cardiac monitoring. The monitor shows a rate of 85 bpm with sinus rhythm. Laboratory studies: As stated above and show below. Imaging studies: See below Consultation(s): [id number]: I discussed this case with Dr. Diana who [facility]. 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 current occupational status: unemployed Other Information That Helps Us Care for You: No Feels Safe at Home: Yes Safety Concerns: Feels Safe At This Time Assistive Devices: Glasses Allergies Allergies Allergy/AdvReac Type Severity Reaction Status Date / Time hydrocodone Allergy Mild UNK Verified 05/04/20 23:01 milk Allergy Unknown Unknown Verified 05/04/20 23:01 pine nut Allergy Unknown Verified 05/04/20 23:01 pine Allergy Unknown Unknown Uncoded 05/04/20 23:01 Home Meds Home Medications Medication Instructions Recorded Confirmed metformin 1,000 mg PO BIDM #0 06/30/09 05/04/20 gabapentin 300 mg PO TID 02/06/18 05/04/20 atorvastatin 80 mg PO DAILY 03/29/18 05/04/20 famotidine 20 mg PO BID 12/26/19 05/04/20 oxybutynin chloride 5 mg PO DAILY 12/26/19 05/04/20 hydroxyzine pamoate 25 mg PO TID PRN 01/26/20 05/04/20 insulin aspart U-100 [Novolog 3 unit SUBCUT DAILYBB 01/26/20 05/04/20 Flexpen U-100 Insulin] Tradjenta 5 mg PO DAILY 02/28/20 05/04/20 nitroglycerin 0.4 mg SUBLINGUAL UD PRN 02/28/20 05/04/20 sertraline 100 mg PO DAILY 02/28/20 05/04/20 aspirin 81 mg PO DAILY 05/04/20 05/04/20 metoprolol succinate 50 mg PO QAM 05/04/20 05/04/20 Previous Rx's Medication Instructions Recorded Lantus Solostar U-100 Insulin 12 unit SUBCUT PM #15 ml 12/28/19 lisinopril [Zestril] 5 mg PO QAM #30 tab 12/10/20 ticagrelor [Brilinta] 90 mg PO BID #60 tab 03/02/20 Results & Data (ED) Vital Signs Vital Signs - 24 hr 05/04/20 20:42 05/04/20 20:45 05/04/20 21:22 Temperature 36.8 C Temperature Source Oral Pulse Rate 80 77 74 Pulse Rate [Right Radial] Pulse Rate from SpO2 Sensor 75 73 Pulse Rhythm Regular Pulse Rhythm [Right Radial] Pulse Strength [Right Radial] Respiratory Rate 16 21 23 Respiratory Effort / Characteristics Respiratory Depth Blood Pressure 163/101 H 163/101 H Blood Pressure [Right Arm] Blood Pressure Mean 121 121 Blood Pressure Mean [Right Arm] Pulse Oximetry 97 96 96 Oxygen Delivery Method Room Air Sepsis Recent Fever Within 48 Hours No Sepsis New/Unexplained Change in Mental Status No Sepsis Action Taken by Nursing No Action Required 05/04/20 21:30 05/04/20 21:40 05/04/20 21:50 Temperature Temperature Source Pulse Rate 75 74 73 Pulse Rate [Right Radial] Pulse Rate from SpO2 Sensor 75 74 73 Pulse Rhythm Pulse Rhythm [Right Radial] Pulse Strength [Right Radial] Respiratory Rate 18 23 19 Respiratory Effort / Characteristics Respiratory Depth Blood Pressure Blood Pressure [Right Arm] Blood Pressure Mean Blood Pressure Mean [Right Arm] Pulse Oximetry 96 95 96 Oxygen Delivery Method Sepsis Recent Fever Within 48 Hours Sepsis New/Unexplained Change in Mental Status Sepsis Action Taken by Nursing 05/04/20 22:00 05/04/20 22:10 05/04/20 22:20 Temperature Temperature Source Pulse Rate 73 72 75 Pulse Rate [Right Radial] Pulse Rate from SpO2 Sensor 73 72 76 Pulse Rhythm Pulse Rhythm [Right Radial] Pulse Strength [Right Radial] Respiratory Rate 28 H 19 19 Respiratory Effort / Characteristics Respiratory Depth Blood Pressure Blood Pressure [Right Arm] Blood Pressure Mean Blood Pressure Mean [Right Arm] Pulse Oximetry 96 97 96 Oxygen Delivery Method Sepsis Recent Fever Within 48 Hours Sepsis New/Unexplained Change in Mental Status Sepsis Action Taken by Nursing 05/04/20 22:30 05/04/20 22:42 05/04/20 22:55 Temperature 36.8 C Temperature Source Oral Pulse Rate 74 72 Pulse Rate [Right Radial] 80 Pulse Rate from SpO2 Sensor 75 72 Pulse Rhythm Pulse Rhythm [Right Radial] Pulse Strength [Right Radial] Respiratory Rate 20 19 18 Respiratory Effort / Characteristics Respiratory Depth Blood Pressure 143/77 H Blood Pressure [Right Arm] 140/70 Blood Pressure Mean 99 Blood Pressure Mean [Right Arm] 93 Pulse Oximetry 96 94 97 Oxygen Delivery Method Room Air Sepsis Recent Fever Within 48 Hours Sepsis New/Unexplained Change in Mental Status Sepsis Action Taken by Nursing 05/05/20 00:03 05/05/20 00:04 05/05/20 00:05 Temperature Temperature Source Pulse Rate 73 74 Pulse Rate [Right Radial] 73 Pulse Rate from SpO2 Sensor Pulse Rhythm Pulse Rhythm [Right Radial] Regular Pulse Strength [Right Radial] Normal Respiratory Rate 19 16 19 Respiratory Effort / Characteristics Non-Labored Spontaneous Respiratory Depth Normal Blood Pressure 130/75 Blood Pressure [Right Arm] 130/75 Blood Pressure Mean 93 Blood Pressure Mean [Right Arm] 93 Pulse Oximetry 98 Oxygen Delivery Method Room Air Sepsis Recent Fever Within 48 Hours Sepsis New/Unexplained Change in Mental Status Sepsis Action Taken by Nursing 05/05/20 00:10 05/05/20 00:20 05/05/20 00:30 Temperature Temperature Source Pulse Rate 72 75 72 Pulse Rate [Right Radial] Pulse Rate from SpO2 Sensor 74 73 Pulse Rhythm Pulse Rhythm [Right Radial] Pulse Strength [Right Radial] Respiratory Rate 19 16 18 Respiratory Effort / Characteristics Respiratory Depth Blood Pressure Blood Pressure [Right Arm] Blood Pressure Mean Blood Pressure Mean [Right Arm] Pulse Oximetry 96 96 Oxygen Delivery Method Sepsis Recent Fever Within 48 Hours Sepsis New/Unexplained Change in Mental Status Sepsis Action Taken by Nursing 05/05/20 00:40 05/05/20 00:50 05/05/20 01:00 Temperature Temperature Source Pulse Rate 82 75 74 Pulse Rate [Right Radial] Pulse Rate from SpO2 Sensor 79 72 74 Pulse Rhythm Pulse Rhythm [Right Radial] Pulse Strength [Right Radial] Respiratory Rate 15 20 20 Respiratory Effort / Characteristics Respiratory Depth Blood Pressure Blood Pressure [Right Arm] Blood Pressure Mean Blood Pressure Mean [Right Arm] Pulse Oximetry 96 96 95 Oxygen Delivery Method Sepsis Recent Fever Within 48 Hours Sepsis New/Unexplained Change in Mental Status Sepsis Action Taken by Nursing 05/05/20 01:10 05/05/20 01:20 05/05/20 01:30 Temperature Temperature Source Pulse Rate 74 74 82 Pulse Rate [Right Radial] Pulse Rate from SpO2 Sensor 73 74 79 Pulse Rhythm Pulse Rhythm [Right Radial] Pulse Strength [Right Radial] Respiratory Rate 23 20 20 Respiratory Effort / Characteristics Respiratory Depth Blood Pressure Blood Pressure [Right Arm] Blood Pressure Mean Blood Pressure Mean [Right Arm] Pulse Oximetry 95 96 97 Oxygen Delivery Method Sepsis Recent Fever Within 48 Hours Sepsis New/Unexplained Change in Mental Status Sepsis Action Taken by Nursing 05/05/20 01:38 05/05/20 01:40 Temperature Temperature Source Pulse Rate 76 74 Pulse Rate [Right Radial] 84 Pulse Rate from SpO2 Sensor Pulse Rhythm Pulse Rhythm [Right Radial] Pulse Strength [Right Radial] Respiratory Rate 14 24 Respiratory Effort / Characteristics Non-Labored Spontaneous Respiratory Depth Normal Blood Pressure 126/74 Blood Pressure [Right Arm] 126/74 Blood Pressure Mean 91 Blood Pressure Mean [Right Arm] 91 Pulse Oximetry 98 Oxygen Delivery Method Room Air Sepsis Recent Fever Within 48 Hours Sepsis New/Unexplained Change in Mental Status Sepsis Action Taken by [facility] Medications Current Medication List: was personally reviewed by me Laboratory Data Attestation: I reviewed the patient's lab results. Result diagrams: 05/05/20 04:38 05/05/20 04:38 Lab Results 05/04/20 05/04/20 05/04/20 Range/Units 21:03 21:03 21:03 WBC 5.55 (4.8-10.8) K/uL RBC 3.25 L (4.2-5.4) M/uL Hgb 9.8 L (12.0-16.0) g/dL Hct 30.2 L (37-47) % MCV 92.9 (80-100) fL MCH 30.2 (25-34) pg MCHC 32.5 (32-36) g/dL RDW Std Deviation 45.5 (36.4-46.3) fL RDW Coeff of Ronaldo 13.4 (11.5-14.5) % Plt Count 221 (130-400) K/uL MPV 10.1 (7.4-10.4) fL Immature Gran % (Auto) 0.5 % Neut % (Auto) 62.5 % Lymph % (Auto) 30.1 % Kemper % (Auto) 4.7 % Eos % (Auto) 1.8 % Baso % (Auto) 0.4 % Neut # (Auto) 3.47 (1.4-6.5) K/uL Lymph # (Auto) 1.67 (1.2-3.4) K/uL Kemper # (Auto) 0.26 (0.11-0.59) K/uL Eos # (Auto) 0.10 (0-0.5) K/uL Baso # (Auto) 0.02 (0-0.2) K/uL Immature Gran # (Auto) 0.03 H (0.00-0.02) K/uL PT 10.4 (9.0-12.0) Seconds INR 1.0 (0.9-1.1) APTT 23.0 (21.0-31.0) Seconds PTT Ratio 0.9 Sodium 140 (136-145) mmol/L Potassium 4.1 (3.5-5.1) mmol/L Chloride 108 H (98-107) mmol/L Carbon Dioxide 23 (21-32) mmol/L Anion Gap 9.0 (3-11) BUN 22 H (7-18) mg/dl Creatinine 0.82 (0.6-1.2) mg/dl Est Cr Clr Drug Dosing 70.4 ml/min Est GFR ( Amer) 88.9 Est GFR (Non-Af Amer) 76.7 BUN/Creatinine Ratio 26.8 H (10-20) Glucose 157 H (70-99) mg/dl Calcium 8.4 L (8.5-10.1) mg/dl Magnesium (1.8-2.4) mg/dl Total Bilirubin 0.3 (0.2-1) mg/dl AST 7 L (15-37) U/L ALT 12 (12-78) U/L Alkaline Phosphatase 68 (45-117) U/L Troponin I < 0.015 (0-0.045) ng/ml Total Protein 6.9 (6.4-8.2) gm/dl Albumin 3.4 (3.4-5.0) gm/dl Globulin 3.5 (2.5-4.0) gm/dl Albumin/Globulin Ratio 1.0 (0.9-2) COVID-19 Eval Order SARS-CoV-2, RNA, NAAT (NEGATIVE) 05/04/20 05/04/20 05/04/20 Range/Units 22:45 22:45 23:28 WBC (4.8-10.8) K/uL RBC (4.2-5.4) M/uL Hgb (12.0-16.0) g/dL Hct (37-47) % MCV (80-100) fL MCH (25-34) pg MCHC (32-36) g/dL RDW Std Deviation (36.4-46.3) fL RDW Coeff of Ronaldo (11.5-14.5) % Plt Count (130-400) K/uL MPV (7.4-10.4) fL Immature Gran % (Auto) % Neut % (Auto) % Lymph % (Auto) % Kemper % (Auto) % Eos % (Auto) % Baso % (Auto) % Neut # (Auto) (1.4-6.5) K/uL Lymph # (Auto) (1.2-3.4) K/uL Kemper # (Auto) (0.11-0.59) K/uL Eos # (Auto) (0-0.5) K/uL Baso # (Auto) (0-0.2) K/uL Immature Gran # (Auto) (0.00-0.02) K/uL PT (9.0-12.0) Seconds INR (0.9-1.1) APTT (21.0-31.0) Seconds PTT Ratio Sodium (136-145) mmol/L Potassium (3.5-5.1) mmol/L Chloride (98-107) mmol/L Carbon Dioxide (21-32) mmol/L Anion Gap (3-11) BUN (7-18) mg/dl Creatinine (0.6-1.2) mg/dl Est Cr Clr Drug Dosing ml/min Est GFR ( Amer) Est GFR (Non-Af Amer) BUN/Creatinine Ratio (10-20) Glucose (70-99) mg/dl Calcium (8.5-10.1) mg/dl Magnesium 1.3 L (1.8-2.4) mg/dl Total Bilirubin (0.2-1) mg/dl AST (15-37) U/L ALT (12-78) U/L Alkaline Phosphatase (45-117) U/L Troponin I < 0.015 (0-0.045) ng/ml Total Protein (6.4-8.2) gm/dl Albumin (3.4-5.0) gm/dl Globulin (2.5-4.0) gm/dl Albumin/Globulin Ratio (0.9-2) COVID-19 Eval [email or web address] SARS-CoV-2, RNA, NAAT NEGATIVE (NEGATIVE) Administered Medications Aspirin (Aspirin 81 Mg Ectab) 81 mg PO DAILY [facility] Stop: 06/04/20 08:59 Last Admin: 05/05/20 10:16 Dose: 81 mg Documented by: [id number] Atorvastatin Calcium (Atorvastatin 40 Mg Tab) 80 mg PO DAILY [facility] Stop: 06/04/20 08:59 Last Admin: 05/05/20 10:16 Dose: 80 mg Documented by: [id number] Gabapentin (Gabapentin 300 Mg Cap) 300 mg PO TID [facility] Stop: 06/04/20 08:59 Last Admin: 05/05/20 10:16 Dose: 300 mg Documented by: [id number] Lactated Ringer's (Lr) 1,000 mls @ 40 mls/hr IV .Q24H [facility] Stop: 06/04/20 03:44 Last Admin: 05/05/20 02:47 Dose: 40 mls/hr Documented by: [id number] Insulin Aspart (Insulin Aspart 100 Units/Ml 3 Ml Pen) 0 units SC Q6 [facility] Stop: 06/04/20 03:44 Last Admin: 05/05/20 06:34 Dose: Not Given Documented by: [id number] Cosigned by: [id number] Admin: 05/05/20 02:56 Dose: Not Given Documented by: [id number] Cosigned by: [id number] Lisinopril (Lisinopril 5 Mg Tab) 5 mg PO QAM [facility] Stop: 06/04/20 08:59 Last Admin: 05/05/20 10:16 Dose: 5 mg Documented by: [id number] Metoprolol Succinate (Metoprolol Succ 50mg Ext Rel Tab) 50 mg PO QAM [facility] Stop: 06/04/20 08:59 Last Admin: 05/05/20 10:16 Dose: 50 mg Documented by: [id number] Oxybutynin Chloride (Oxybutynin Chloride 5 Mg Tab) 5 mg PO DAILY [facility] Stop: 06/04/20 08:59 Last Admin: 05/05/20 10:17 Dose: 5 mg Documented by: [id number] Sertraline HCl (Sertraline Hcl 100 Mg Tablet) 100 mg PO DAILY [facility] Stop: 06/04/20 08:59 Last Admin: 05/05/20 10:16 Dose: 100 mg Documented by: [id number] Ticagrelor (Ticagrelor 90 Mg Tab) 90 mg PO BID [facility] Stop: 06/04/20 08:59 Last Admin: 05/05/20 10:15 Dose: 90 mg Documented by: [id number] Discontinued Medications Aspirin (Aspirin Chew 324 Mg) 324 mg PO NOW STA Stop: 05/04/20 21:17 Last Admin: 05/04/20 22:43 Dose: 324 mg Documented by: [id number] Magnesium Sulfate/Dextrose (Magnesium Sulfate / D5w) 1 gm in 100 mls @ 50 mls/hr IV Q2H [facility] Stop: 05/05/20 07:59 Last Infusion: 05/05/20 05:59 Dose: 0 mls/hr Documented by: [id number] Admin: 05/05/20 03:52 Dose: 50 mls/hr Documented by: [id number] Infusion: 05/05/20 03:52 Dose: 50 mls/hr Documented by: [id number] Admin: 05/05/20 02:46 Dose: 50 mls/hr Documented by: [id number] Magnesium Sulfate/Dextrose (Magnesium Sulfate / D5w) 1 gm in 100 mls @ 50 mls/hr IV ONE STA Stop: 05/05/20 03:47 Last Infusion: 05/05/20 03:53 Dose: 0 mls/hr Documented by: [id number] Admin: 05/05/20 01:58 Dose: 50 mls/hr Documented by: [id number] Imaging Data Attestation: I personally reviewed and interpreted this imaging study as follows: My Impression: Chest x-ray was obtained in the emergency department. My interpretation was no free air, heart size normal, no definite infiltrate, no acute disease Blood Pressure Blood Pressure Findings: Elevated blood pressure Blood Pressure Disposition: further management by hospitalist Discharge Plan Visit Data Chief Complaint: Chest Pain Stated Complaint: CHEST PAIN, L ELBOW PAIN ED Provider: Eze Campuzano Discharge Problem: Chest pain, Abnormal EKG, Anemia Patient Disposition: Admitted As Inpatient Condition: Good Discharge Instructions Interventions: ED Discharge Assessment Last Done: 05/05/20 02:11 Discharge Problem: Chest pain Qualifiers: Chest pain type: unspecified Qualified Code(s): R07.9 - Chest pain, unspecified Anemia Qualifiers: Anemia type: unspecified type Qualified Code(s): D64.9 - Anemia, unspecified
[2020-05-04 21:48] LABS: Alkaline Phosphatase 68 U/L (45-117); Bilirubin,Total 0.3 mg/dl (0.2-1); Globulin 3.5 gm/dl (2.5-4.0); Partial Thromboplastin Ratio 0.9; Prothrombin Time 10.4 Seconds (9.0-12.0); Total Protein 6.9 gm/dl (6.4-8.2); Troponin I < 0.015 ng/ml (0-0.045)
[2020-05-05 00:14] LABS: Magnesium 1.3 mg/dl (1.8-2.4); Troponin I < 0.015 ng/ml (0-0.045)
[2020-05-05] MEDS ORDERED: MAGNESIUM SULFATE / D5W 1 GM/100 ML BAG IV STA (01:48)
--- NOTE | 2020-05-05 02:17 | History & Physical Report ---
Date of Service May 05, 2020 Assessment & Plan (1) Chest pain: Chest pain History CAD status post stent Possible unstable angina Chronic systolic heart failure, patient euvolemic hypertension, initially elevated upon arrival at the ER hyperlipidemia on statin Rx DM2 insulin requiring, suboptimal control as above recent hemoglobin A1c of 8.1 last March 2020 chronic anemia, hemoglobin close to baseline mood disorder, at baseline past tobacco abuse OBS PCU Continue antiplatelet Rx, beta-erickson, statin meds, nitro as needed Follow troponin Cardiology consult RE chest pain N.p.o. until patient seen by cardiology in a.m. Basal insulin adjusted for NPO status for now, ISS BG goal [id number], carb count coverage DVT prophylaxis. Lovenox subcu Full code Text document was generated using [employer] voice recognition software. It may contain grammatical or spelling errors. Kindly contact undersigned for clarification of any documentation item in question. Admission and Anticipated Discharge Date Admission Date: May 05, 2020 History of Present Illness Chief Complaint: Chest pain Primary Care Provider: Scarlett Devries MD History obtained from patient and records. Medical history significant for chronic systolic heart failure secondary to ischemic cardiomyopathy (EF 40 to 44%, TTE 2020), CAD status post stent, hypertension, hyperlipidemia, DM2 insulin requiring, GERD, chronic anemia (baseline hemoglobin of 10-11), mood disorder, past tobacco abuse. Last confinement February [address] elevation PR. 2 drug-eluting stents deployed for acute mid LAD occlusion. EF found to be 35 to 40% on TTE during confinement. 5 days history of intermittent left-sided achy chest pain with radiation to the left arm with some shortness of breath similar to heart attack in the past. No cough symptoms. Not related to exertion. Patient compliant with home medications. No unusual stress at home. Patient currently comfortable at the ER. 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 Allergies Allergy/AdvReac Type Severity Reaction Status Date / Time hydrocodone Allergy Mild UNK Verified 05/04/20 23:01 milk Allergy Unknown Unknown Verified 05/04/20 23:01 pine nut Allergy Unknown Verified 05/04/20 23:01 pine Allergy Unknown Unknown Uncoded 05/04/20 23:01 Home Medications Medication Instructions Recorded Confirmed Type metformin 1,000 mg PO BIDM #0 06/30/09 05/04/20 History gabapentin 300 mg PO TID 02/06/18 05/04/20 History atorvastatin 80 mg PO DAILY 03/29/18 05/04/20 History famotidine 20 mg PO BID 12/26/19 05/04/20 History oxybutynin chloride 5 mg PO DAILY 12/26/19 05/04/20 History Lantus Solostar U-100 Insulin 12 unit SUBCUT PM #15 ml 12/28/19 05/04/20 Rx hydroxyzine pamoate 25 mg PO TID PRN 01/26/20 05/04/20 History insulin aspart U-100 [Novolog 3 unit SUBCUT DAILYBB 01/26/20 05/04/20 History Flexpen U-100 Insulin] Tradjenta 5 mg PO DAILY 02/28/20 05/04/20 History nitroglycerin 0.4 mg SUBLINGUAL UD PRN 02/28/20 05/04/20 History sertraline 100 mg PO DAILY 02/28/20 05/04/20 History lisinopril [Zestril] 5 mg PO QAM #30 tab 03/02/20 05/04/20 Rx ticagrelor [Brilinta] 90 mg PO BID #60 tab 03/02/20 05/04/20 Rx aspirin 81 mg PO DAILY 05/04/20 05/04/20 History metoprolol succinate 50 mg PO QAM 05/04/20 05/04/20 History Past Med/Surg History Medical History Arthritis Depression Diabetes Surgical History No pertinent past surgical history Family History Other Deep vein thrombosis Social History Smoking Status: Never smoker Second Hand Exposure: No; Do You Dip or Chew Tobacco: No; Tobacco Cessation Education Requested by Patient: No Hx Alcohol Use: No Hx Substance Use: No Preferred Language: French Communication Ability: Effective Visual Impairment: No Limitations Hearing Ability: Normal Audit Spec Required: No Beliefs That Will Affect Care: None marital status: Current Living Situation: Family Current Living Situation Comment: The patient states that she lives with her child and their fianc. current occupational status: unemployed Other Information That Helps Us Care for You: No Feels Safe at Home: Yes Safety Concerns: Feels Safe At This Time Assistive Devices: Glasses Review of Systems Review of Systems: As per HPI, all 10 systems reviewed, all other ROS negative Physical Exam Physical Exam: GENERAL: Comfortable, pleasant, slightly anxious, obese, no respiratory distress SKIN: Normal color, warm HEENT: Bespectacled, Rapelje palpebral conjunctivae, no ptosis, dry buccal mucosa NECK : Supple, short neck, no tenderness CHEST : CTA, no tenderness HEART : RRR, no obvious murmurs ABDOMEN: Some distention, nontender RECTAL : Intact sphincter, yellow stool (FOBT negative) EXTREMITIES : No LE swelling/tenderness, no other conspicuous deformities noted NEUROLOGIC : Coherent, no facial asymmetry, no other gross focality Results & Data Results & Data ([facility]) Vital Signs (Past 12 Hours) Vital Signs Temp Pulse Pulse Resp BP BP Pulse Ox 05/05/20 01:40 84 16 126/74 98 05/05/20 00:04 73 16 130/75 98 05/04/20 22:55 36.8 C 80 18 140/70 97 05/04/20 22:42 72 19 143/77 H 94 05/04/20 22:30 74 20 96 05/04/20 22:20 75 19 96 05/04/20 22:10 72 19 97 05/04/20 22:00 73 28 H 96 05/04/20 21:50 73 19 96 05/04/20 21:40 74 23 95 05/04/20 21:30 75 18 96 05/04/20 21:22 74 23 96 05/04/20 20:45 77 21 163/101 H 96 05/04/20 20:42 36.8 C 80 16 163/101 H 97 Laboratory Results Laboratory Results WBC 5.55 K/uL (4.8-10.8) 05/04/20 21:03 RBC 3.25 M/uL (4.2-5.4) L 05/04/20 21:03 Hgb 9.8 g/dL (12.0-16.0) L 05/04/20 21:03 Hct 30.2 % (37-47) L 05/04/20 21: MCV 92.9 fL (80-100) 05/04/20 21: MCH 30.2 pg (25-34) 05/04/20 21: MCHC 32.5 g/dL (32-36) 05/04/20 21: RDW Std Deviation 45.5 fL (36.4-46.3) 05/04/20: RDW Coeff of Ronaldo 13.4 % (11.5-14.5) 05/04/20 21: Plt Count 221 K/uL (130-400) 05/04/20 21: MPV 10.1 fL (7.4-10.4) 05/04/20: Immature Gran % (Auto) 0.5 % 05/04/20 21: Neut % (Auto) 62.5 % 05/04/20 21: Lymph % (Auto) 30.1 % 05/04/20 21: [place] % (Auto) 4.7 % 05/04/20 21: Eos % (Auto) 1.8 % 05/04/20 21: Baso % (Auto) 0.4 % 05/04/20: Neut # (Auto) 3.47 K/uL (1.4-6.5) 05/04/20 21: Lymph # (Auto) 1.67 K/uL (1.2-3.4) 05/04/20 21: [place] # (Auto) 0.26 K/uL (0.11-0.59) 05/04/20: Eos # (Auto) 0.10 K/uL (0-0.5) 05/04/20 21: Baso # (Auto) 0.02 K/uL (0-0.2) 05/04/20: Immature Gran # (Auto) 0.03 K/uL (0.00-0.02) H 05/04/20 21: PT 10.4 Seconds (9.0-12.0) 05/04/20 21: INR 1.0 (0.9-1.1) 05/04/20 21: APTT 23.0 Seconds (21.0-31.0) 05/04/20 21:03 PTT Ratio 0.9 05/04/20 21:03 Sodium 140 mmol/L (136-145) 05/04/20 21:03 Potassium 4.1 mmol/L (3.5-5.1) 05/04/20 21:03 Chloride 108 mmol/L (98-107) H 05/04/20 21:03 Carbon Dioxide 23 mmol/L (21-32) 05/04/20 21:03 Anion Gap 9.0 (3-11) 05/04/20 21:03 BUN 22 mg/dl (7-18) H 05/04/20 21:03 Creatinine 0.82 mg/dl (0.6-1.2) 05/04/20 21: Est Cr Clr Drug Dosing 70.4 ml/min 05/04/20 21:03 Est GFR ( Amer) 88.9 05/04/20 21:03 Est GFR (Non-Af Amer) 76.7 05/04/20 21:03 BUN/Creatinine Ratio 26.8 (10-20) H 05/04/20 21:03 Glucose 157 mg/dl (70-99) H 05/04/20 21:03 Calcium 8.4 mg/dl (8.5-10.1) L 05/04/20 21:03 Magnesium 1.3 mg/dl (1.8-2.4) L 05/04/20 23:28 Total Bilirubin 0.3 mg/dl (0.2-1) 05/04/20 21:03 AST 7 U/L (15-37) L 05/04/20 21:03 ALT 12 U/L (12-78) 05/04/20 21:03 Alkaline Phosphatase 68 U/L (45-117) 05/04/20 21:03 Troponin I < 0.015 ng/ml (0-0.045) 05/04/20 23:28 Total Protein 6.9 gm/dl (6.4-8.2) 05/04/20 21:03 Albumin 3.4 gm/dl (3.4-5.0) 05/04/20 21:03 Globulin 3.5 gm/dl (2.5-4.0) 05/04/20 21:03 Albumin/Globulin Ratio 1.0 (0.9-2) 05/04/20 21:03 COVID-19 Eval Order Covid19 [facility]Now [facility] 05/04/20 22:45 SARS-CoV-2, RNA, NAAT NEGATIVE (NEGATIVE) 05/04/20 22:45 Diagnostic Findings Chest x-ray as per my interpretation interstitial thickening EKG as per my interpretation : Rate 80, NSR, LAD, LAFB, T wave inversion septal leads Code Status & VTE Plan VTE Prophylaxis Plan VTE Prophylaxis will be ordered: Yes
[2020-05-05] MEDS ORDERED: traMADol HCL 50 MG TABLET PO PRN (02:18)
[2020-05-05] MEDS ORDERED: GLUCOSE 40% GEL 15 GM TUBE PO PRN (02:18)
[2020-05-05] MEDS ORDERED: CARBOHYDRATES FOR HYPOGLYCEMIA PO PRN (02:18)
[2020-05-05] MEDS ORDERED: GLUCAGON FOR INJ 1 MG VIAL SQ PRN (02:18)
[2020-05-05] MEDS ORDERED: PROMETHAZINE HCL 12.5 MG in SODIUM CHLORIDE 0.9% 50 ML IV PRN (02:18)
[2020-05-05] MEDS ORDERED: GLUCOSE 10 TABS/TUBE PO PRN (02:18)
[2020-05-05] MEDS ORDERED: DEXTROSE 50% 50 ML SYRINGE IV PRN (02:18)
[2020-05-05] MEDS ORDERED: ACETAMINOPHEN 325 MG TAB PO PRN (02:18)
[2020-05-05] MEDS ORDERED: MoRPHine SULFATE 2 MG/ML CARP IV PRN (02:18)
[2020-05-05] MEDS ORDERED: LORazepam 0.25 MG/0.5 ML VIAL IV PRN (02:18)
[2020-05-05] MEDS ORDERED: LACTATED RINGER'S 1,000 ML IV SCH (02:45)
[2020-05-05] MEDS: MAGNESIUM SULFATE / D5W 1 GM/100 ML BAG IV SCH ×2 (02:46→03:52)
[2020-05-05] MEDS: INSULIN ASPART 100 UNITS/ML 3 ML PEN SC SCH ×6 (02:56→22:55)
[2020-05-05 04:53] LABS: Basophils # (auto) 0.01 K/uL (0-0.2); Basophils % (auto) 0.2 %; Eosinophils # (auto) 0.12 K/uL (0-0.5); Eosinophils % (auto) 2.2 %; Hematocrit (blood only) 28.8 % (37-47); Hemoglobin 9.5 g/dL (12.0-16.0); Immature Granulocytes # (auto) 0.04 K/uL (0.00-0.02); Immature Granulocytes % (auto) 0.7 %; Lymphocytes # (auto) 2.08 K/uL (1.2-3.4); Lymphocytes % (auto) 37.5 %; Mean Corpuscular Hemoglobin 30.5 pg (25-34); Mean Corpuscular Volume 92.6 fL (80-100); Mean Platelet Volume 9.9 fL (7.4-10.4); Monocytes % (auto) 7.2 %; Neutrophils % (auto) 52.2 %; Platelet Count 206 K/uL (130-400); RDW Coefficient of Variation 13.4 % (11.5-14.5); RDW Standard Deviation 45.2 fL (36.4-46.3); Red Blood Count 3.11 M/uL (4.2-5.4); White Blood Count 5.55 K/uL (4.8-10.8)
[2020-05-05 05:11] LABS: BUN Creatinine Ratio 26.5 (10-20); Calcium 8.2 mg/dl (8.5-10.1); Creatinine Clr Calc Pharmacy 82.5 ml/min; Est GFR (African American) 107.6; Est GFR (Non-African American) 92.9; Magnesium 2.7 mg/dl (1.8-2.4)
--- NOTE | 2020-05-05 07:44 | XRay Report ---
XR chest 1V portable HISTORY: Atypical chest pain. COMPARISON: Chest 02/28/2020. FINDINGS: Chronic mild diffuse interstitial thickening. No new focal lung consolidations to suggest p neumonia. No evidence for pulmonary edema. Left coronary artery stent is noted. The heart is normal i n size. No effusions. No pneumothorax. Old, healed left-sided rib fracture. IMPRESSION: No significant change compared to the prior study. No acute process. ACT 112: Negative or not required by law. Electronically signed by: Nicholas Lombardo M.D. 05/05/2020 7:43 AM
[2020-05-05] MEDS ORDERED: METOPROLOL SUCC 50MG EXT REL TAB PO SCH (09:00)
[2020-05-05] MEDS ORDERED: lisinopril 5 MG TAB PO SCH (09:00)
[2020-05-05] MEDS: TICAGRELOR 90 MG TAB PO SCH ×2 (10:15→21:35)
[2020-05-05] MEDS: ASPIRIN 81 MG ECTAB PO SCH (10:16)
[2020-05-05] MEDS: GABAPENTIN 300 MG CAP PO SCH ×3 (10:16→21:35)
[2020-05-05] MEDS: SERTRALINE HCL 100 MG TABLET PO SCH (10:16)
[2020-05-05] MEDS: ATORVASTATIN 40 MG TAB PO SCH (10:16)
[2020-05-05] MEDS: OXYBUTYNIN CHLORIDE 5 MG TAB PO SCH (10:17)
[2020-05-05] MEDS: ENOXAPARIN INJ 40 MG/0.4 ML SYR SQ SCH (10:32)
[2020-05-05] MEDS: INSULIN GLARGINE SOLOSTAR 100 UNITS/ML 3 ML PEN SC SCH (10:33)
[2020-05-05] MEDS: FAMOTIDINE 20 MG TAB PO SCH ×2 (10:33→21:36)
[2020-05-05] MEDS ORDERED: SODIUM CHLORIDE 0.9% 1000ML 1,000 ML IV SCH (11:15)
--- NOTE | 2020-05-05 11:30 | Cardiology Consultation ---
Date of Consultation May 05, 2020 Assessment & Plan (1) Chest pain: Patient is a 64-year-old female with difficulty history of progressive coronary disease and acute coronary syndrome in February 2020 with coronary intervention mid left anterior sending emergently. Patient now presents with chest pain and shortness of breath similar to past angina. She was concerned about developing heart failure as a cause of her symptoms but examines euvolemic with clear chest x-ray. Discussed options of management due to concerns of past progressive disease rapidly will likely proceed with coronary angiography today Adjust medications depending on results Discussed in detail with patient who is agreeable (2) Ischemic cardiomyopathy: (3) Dyspnea: History of Present Illness Reason for Consultation: Chest pain, shortness of breath, coronary intervention 02/28/2020 Requesting Physician: Dr. Woo Attending Physician: Juan Woo MD History of Present Illness Patient is a complex 64-year-old female with ongoing issues which include 1. Chronic coronary artery disease status post acute coronary invention for ST elevation myocardial infarction 02/28/2020 receiving drug-eluting stents to the mid left anterior descending 2. Ischemic cardiomyopathy with mild to moderate LV dysfunction 3. Hypertension 4. Dyslipidemia 5. Type 2 diabetes mellitus 6. Anemia Patient presents now noting have initially felt improved after coronary mention in February. She now reports 5-day history of intermittent dyspnea and exertional chest pressure sometimes positional as well. She was concerned she was filling up with fluid. Trace edema noted at home and approximately 4 pound weight gain. Dyspnea. More pronounced than findings per her own description. She notes no tachypalpitations syncope or near syncope. Notes no bleeding difficulties. Notes no melena medication. She did have a extended episode of diarrhea in February. No fevers chills or unexplained infections. No headache or visual changes. No neurologic complaints. No sleep disruptions. Appetite stable Only medication change was recent transition from metoprolol titrate to metoprolol succinate Initial evaluation demonstrates EKG with deep anterior T wave versions consistent with evolving infarct. Troponin initially negative. Despite concerns regarding volume overload chest x-ray and exam did not support Echocardiogram without significant aneurysm. EF 40-45% with anterior apical h ypokinesis Allergies Allergy/AdvReac Type Severity Reaction Status Date / Time hydrocodone Allergy Mild UNK Verified 05/04/20 23:01 milk Allergy Unknown Unknown Verified 05/04/20 23:01 pine nut Allergy Unknown Verified 05/04/20 23:01 pine Allergy Unknown Unknown Uncoded 05/04/20 23:01 Home Medications Medication Instructions Recorded Confirmed Type metformin 1,000 mg PO BIDM #0 06/30/09 05/04/20 History gabapentin 300 mg PO TID 02/06/18 05/04/20 History atorvastatin 80 mg PO DAILY 03/29/18 05/04/20 History famotidine 20 mg PO BID 12/26/19 05/04/20 History oxybutynin chloride 5 mg PO DAILY 12/26/19 05/04/20 History Lantus Solostar U-100 Insulin 12 unit SUBCUT PM #15 ml 12/28/19 05/04/20 Rx hydroxyzine pamoate 25 mg PO TID PRN 01/26/20 05/04/20 History insulin aspart U-100 [Novolog 3 unit SUBCUT DAILYBB 01/26/20 05/04/20 History Flexpen U-100 Insulin] Tradjenta 5 mg PO DAILY 02/28/20 05/04/20 History nitroglycerin 0.4 mg SUBLINGUAL UD PRN 02/28/20 05/04/20 History sertraline 100 mg PO DAILY 02/28/20 05/04/20 History lisinopril [Zestril] 5 mg PO QAM #30 tab 03/02/20 05/04/20 Rx ticagrelor [Brilinta] 90 mg PO BID #60 tab 03/02/20 05/04/20 Rx aspirin 81 mg PO DAILY 05/04/20 05/04/20 History metoprolol succinate 50 mg PO QAM 05/04/20 05/04/20 History Patient History Medical History Arthritis Depression Diabetes Surgical History No pertinent past surgical history Family History Other Deep vein thrombosis Social History Smoking Status: Never smoker Second Hand Exposure: No; Do You Dip or Chew Tobacco: No; Tobacco Cessation Education Requested by Patient: No Hx Alcohol Use: No Hx Substance Use: No Preferred Language: Mohawk Communication Ability: Effective Visual Impairment: No Limitations Hearing Ability: Normal Dowel Pointer Required: No Beliefs That Will Affect Care: None marital status: Current Living Situation: Family Current Living Situation Comment: The patient states that she lives with her child and their fianc. current occupational status: unemployed Other Information That Helps Us Care for You: No Feels Safe at Home: Yes Safety Concerns: Feels Safe At This Time Assistive Devices: Glasses Review of Systems Review of Systems: All systems reviewed & are unremarkable except as noted in HPI & below Physical Exam Constitutional: WD/WN, vitals as above no acute distress Eyes: PERRL, conjunctivae normal, anicteric sclerae ENMT: external ear and nose normal, oropharynx normal Neck: trachea midline, no thyromegaly Respiratory: normal respiratory effort, lungs clear to auscultation Cardiovascular: Rate/Rhythm: regular rate and regular rhythm Heart Sounds: normal S1 and normal S2; no gallop and no murmur Palpation: normal PMI Vessels: normal carotid upstroke and radial pulses present; no JVD and no carotid bruit Extremities: no edema Gastrointestinal (Abdomen): normal bowel sounds, soft, nontender, no hepatosplenomegaly Musculoskeletal: no cyanosis or clubbing, extremities motor strength 5/5 Skin: no rashes, warm and dry Neurologic: PERRL, EOMI, accommodation nl, no face palsy, no dysarthria Psychiatric: A+Ox3, euthymic affect Results & Data ([facility]) Vital Signs (Past 12 Hours) Vital Signs Temp Pulse Pulse Resp BP BP Pulse Ox 05/05/20 07:00 62 19 145/69 H 05/05/20 06:50 62 14 05/05/20 06:40 66 16 05/05/20 06:30 65 17 05/05/20 06:20 77 19 05/05/20 06:10 60 15 05/05/20 06:00 62 15 139/77 05/05/20 05:50 61 16 05/05/20 05:40 62 18 05/05/20 05:30 58 L 17 05/05/20 05:20 68 18 05/05/20 05:10 60 17 05/05/20 05:00 59 L 17 116/58 L 05/05/20 04:50 65 16 05/05/20 04:40 72 21 05/05/20 04:30 64 18 05/05/20 04:20 63 16 05/05/20 04:10 65 19 05/05/20 04:00 36.8 C 64 19 127/80 05/05/20 03:50 66 17 05/05/20 03:40 70 17 05/05/20 03:30 66 17 05/05/20 03:20 68 17 05/05/20 03:10 74 18 05/05/20 03:00 74 17 130/77 05/05/20 02:50 72 14 05/05/20 02:40 71 20 94 05/05/20 02:38 72 21 124/67 94 05/05/20 02:32 80 17 05/05/20 02:18 36.8 C 05/05/20 02:10 77 19 05/05/20 02:00 71 18 05/05/20 01:50 77 15 05/05/20 01:40 74 84 24 126/74 98 05/05/20 01:38 76 14 126/74 05/05/20 01:30 82 20 97 05/05/20 01:20 74 20 96 05/05/20 01:10 74 23 95 05/05/20 01:00 74 20 95 05/05/20 00:50 75 20 96 05/05/20 00:40 82 15 96 05/05/20 00:30 72 18 96 05/05/20 00:20 75 16 96 05/05/20 00:10 72 19 05/05/20 00:05 74 19 05/05/20 00:04 73 16 130/75 98 05/05/20 00:03 73 19 130/75 (1) Dyspnea Dyspnea type: dyspnea on exertion Qualified Code(s): R06.00 - Dyspnea, unspecified
--- NOTE | 2020-05-05 13:23 | Pre Anesthesia Assessment ---
Date of Service May 05, 2020 Pre Sedation Assessment Vital Signs Temp Pulse Pulse Resp BP BP Pulse Ox 05/05/20 13:16 61 16 143/81 H 99 05/05/20 12:00 36.7 C 05/05/20 07:00 62 19 145/69 H 05/05/20 06:50 62 14 05/05/20 06:40 66 16 05/05/20 06:30 65 17 05/05/20 06:20 77 19 05/05/20 06:10 60 15 05/05/20 06:00 62 15 139/77 05/05/20 05:50 61 16 05/05/20 05:40 62 18 05/05/20 05:30 58 L 17 05/05/20 05:20 68 18 05/05/20 05:10 60 17 05/05/20 05:00 59 L 17 116/58 L 05/05/20 04:50 65 16 05/05/20 04:40 72 21 05/05/20 04:30 64 18 05/05/20 04:20 63 16 05/05/20 04:10 65 19 05/05/20 04:00 36.8 C 64 19 127/80 05/05/20 03:50 66 17 05/05/20 03:40 70 17 05/05/20 03:30 66 17 05/05/20 03:20 68 17 05/05/20 03:10 74 18 05/05/20 03:00 74 17 130/77 05/05/20 02:50 72 14 05/05/20 02:40 71 20 94 05/05/20 02:38 72 21 124/67 94 05/05/20 02:32 80 17 05/05/20 02:18 36.8 C 05/05/20 02:10 77 19 05/05/20 02:00 71 18 05/05/20 01:50 77 15 05/05/20 01:40 74 84 24 126/74 98 05/05/20 01:38 76 14 126/74 05/05/20 01:30 82 20 97 05/05/20 01:20 74 20 96 05/05/20 01:10 74 23 95 05/05/20 01:00 74 20 95 05/05/20 00:50 75 20 96 05/05/20 00:40 82 15 96 05/05/20 00:30 72 18 96 05/05/20 00:20 75 16 96 05/05/20 00:10 72 19 05/05/20 00:05 74 19 05/05/20 00:04 73 16 130/75 98 05/05/20 00:03 73 19 130/75 05/04/20 22:55 36.8 C 80 18 140/70 97 05/04/20 22:42 72 19 143/77 H 94 05/04/20 22:30 74 20 96 05/04/20 22:20 75 19 96 05/04/20 22:10 72 19 97 05/04/20 22:00 73 28 H 96 05/04/20 21:50 73 19 96 05/04/20 21:40 74 23 95 05/04/20 21:30 75 18 96 05/04/20 21:22 74 23 96 05/04/20 20:45 77 21 163/101 H 96 05/04/20 20:42 36.8 C 80 16 163/101 H 97 Cardiovascular RRR, no murmur, no edema Respiratory normal respiratory effort, lungs clear to auscultation Pre-Sedation Airway Assessment Smoking Status: Never smoker Hx Sleep Apnea: Yes Hx Difficult Intubation: No Mallampati Class: II NPO Status Date of Last Intake of Fluids: 05/05/20 Time of Last Intake of Fluids: 09:00 Last Oral Intake of Fluids Comment: Sips of fluid with meds Date of Last Intake of Solid Food: 05/04/20 Procedure Planning Contraindications for Sedation: none Current Medications Reviewed: Yes Notes The planned sedation has been discussed with the patient. Informed Consent was obtained. I have identified the patient, determined the appropriateness of sedation and have assessed the patient immediately prior to the procedure. All medicine(s) and interventions are by my order.
[2020-05-05] MEDS ORDERED: fentaNYL citrate 100 MCG/2 ML VIAL ONE (13:41)
[2020-05-05] MEDS ORDERED: HEPARIN (PORCINE) 1000 UNIT/ML 10 ML (CATH LAB USE ONLY) ONE (13:41)
[2020-05-05] MEDS ORDERED: niCARdipine HCL INJ 2.5 MG/ML 10 ML AMP ONE (13:41)
[2020-05-05] MEDS ORDERED: MIDAZOLAM HCL 1 MG/ML 2ML VIAL ONE (13:41)
[2020-05-05] MEDS ORDERED: NITROGLYCERIN/D5W 100MCG/ML 20ML SYR ONE (13:42)
--- NOTE | 2020-05-05 14:17 | Cardiac Catheterization ---
Cardiac Cath Procedure Brief Procedure Date May 05, 2020 Pre-Procedure Diagnosis Pre-Procedure Diagnosis: Angina AUC Score AUC Score: 7 Post-Procedure Diagnosis Post-Procedure Diagnosis: Moderate CAD Procedure(s) Performed Procedure(s) Performed: Coronary Angiography and Left Heart Cath Tight Cooper Kiran Horne MD Maritime Officer(s) Radha Evans Estimated Blood Loss Estimated Blood Loss: <15cc Medication(s) Medication(s): Fentanyl (12.5 mcg IV), Heparin (5000 units IV), Lidocaine 1% (Local infiltration access site), Nicardipine (250 mcg intra-arterial after arterial sheath insertion) and Versed (1 mg IV) Preliminary Findings No progression in coronary disease with widely patent left anterior descending stents Normal left end-diastolic pressure Recommendations Recommendations: Medical Therapy and/or Counseling Specimens Specimens: None Fluids (cc crystalloids) Fluids (cc crystalloids): 30 Anesthesia Start time 1346, stop time 1403 Procedural Complication(s) None Disposition PCU
--- NOTE | 2020-05-05 14:29 | Cardiac Catheterization ---
Cardiac Cath Procedure Full Procedure Date May 05, 2020 Pre-Procedure Diagnosis Pre-Procedure Diagnosis: Angina AUC Score AUC Score: 7 Post-Procedure Diagnosis Post-Procedure Diagnosis: Moderate CAD Procedure(s) Performed Procedure(s) Performed: Coronary Angiography and Left Heart Cath Brand Planner Kiran Horne MD Industrial/Organizational Psychologist(s) [facility] Estimated Blood Loss Estimated Blood Loss: <15cc Medication(s) Medication(s): Fentanyl (12.5 mcg IV), Heparin (5000 units IV), Lidocaine 1% (Local infiltration access site), Nicardipine (250 mcg intra-arterial after arterial sheath insertion) and Versed (1 mg IV) Summary of Findings Impression: No progression in coronary disease with widely patent left anterior descending stents Normal left end-diastolic pressure Coronary angiography: Left main: Long and free of disease, calcification Left anterior descending: Type III in distribution. Gives rise to a large first diagonal and 2 small second and third diagonals. Area previously stenting in the proximal and mid left anterior descending widely patent without compromise. There is mild to moderate luminal irregularities in the distal vessel Left circumflex: Moderate size vessel nondominant consisting of a large bifurcating obtuse marginal and a large posterior lateral branch. There is moderate irregularities but no obstruction Ramus intermedius: Trivial vessel with ostial stenosis Right coronary artery: Large caliber vessel dominant distribution giving rise to a sinoatrial branch and a conus branch shortly after its origin, a large mid right ventricular branch at the AV groove along posterior descending artery and along the AV groove 3 posterior ventricular branches. Within the right coronary distribution there are moderate irregularities and mild ectasia throughout its midportion, significant narrowing less than 30% Hemodynamics: LV pressure 158/3 with an LVEDP of 13 Hemodynamics Rest Ao:: 158/69, mean 105 Final Ao: 158/3, LVEDP 13 LV: 162/66, mean 104 Recommendations Recommendations: Medical Therapy and/or Counseling Specimens Specimens: None Radiation Exposure (mGy) 453 Contrast (mls) 43 Fluids (cc crystalloids) Fluids (cc crystalloids): 30 Anesthesia Start time 1346, stop time 1403 Procedural Complication(s) None Disposition PCU I attest to the content of the Intraoperative Record and any orders documented therein. Any exceptions are noted below. ACC Data: Park Guard Cardiac Status Clinical evaluation leading to the procedure 64-year-old female status post left anterior sending coronary mention for acute occlusion February 28, 2020. Patient represents with symptoms of chest pain, exertional dyspnea x5 days. Symptoms occurred evening with presentation at rest. EKGs and echocardiograms chronically abnormal CAD Presenation: Stable angina Anginal Classification: CCS III Heart Failure: No Cardiogenic Shock within 24 Hours: No Cardiac Arrest within 24 Hours: No Imaging Studies Past 6 Months: Yes Stress Studies Past 6 Months: No Standard Exercise Test: No Stress Echocardiogram: No Stress Testing w/SPECT MPI: No Cardiac CTA: No Coronary Anatomy Dominant: Right Left Main (% Stenosis): Normal LAD (% Stenosis): Proximal (Widely patent stent) and Mid (Mild to moderate irregularities) D1 (% Stenosis): Normal D2 (% Stenosis): Normal D3 (% Stenosis): Normal Circumflex (% Stenosis): Normal OM1 (% Stenosis): Mid (Mild irregularity) L PL1 (% Stenosis): Normal RCA (% Stenosis): Mid (Moderate irregularities) R PDA (% Stenosis): Normal R PL1 (% Stenosis): Normal R PL2 (% Stenosis): Normal Ramus (% Stenosis): Ostial (Trivial vessel with 90% ostial stenosis) Left Ventricular Angiography EF (%): N/A Diagnostic Physicians Name: Kiran Horne MD Status: Urgent Closure Device Percutaneous Entry Location: Radial Closure Device: Radial Band Recommendations: Medical Therapy and/or Counseling
--- NOTE | 2020-05-05 15:10 | Hospitalist Progress Note ---
Date of Service May 05, 2020 Assessment & Plan (1) Chest pain: Chest pain H/O CAD S/P stent S/P Cardiac Cath:No progression in coronary disease with widely patent left anterior descending stents. Normal left end-diastolic pressure CXR:No significant change compared to the prior study. No acute process. Troponin Negative Appreciate cardiology input Continue aspirin, Brilinta, atorvastatin, metoprolol, lisinopril Hypomagnesemia Replace electrolytes as needed Monitor HTN Mildly elevated Continue lisinopril, metoprolol Ischemic cardiomyopathy Chronic systolic heart failure No signs of decompensation Continue current medications Hyperlipidemia on statin DM II HbA1C: 8.24 Mar 2020 Hold p.o. meds Continue insulin therapy while hospitalized Monitor BGs Mood disorder At baseline Continue home medications DVT Px: Lovenox SQ Code Status Full code Disposition Expect to discharge home when stable Admission and Anticipated Discharge Date Admission Date: May 05, 2020 Subjective Patient is seen and examined at bedside Reports mild headache this morning Chest pain resolved Plan for cardiac catheterization today Denies dyspnea, dizziness, nausea, abdominal pain Offers no new complaints Review of Systems Review of Systems: All systems reviewed & are unremarkable except as noted in HPI & below Physical Exam Physical Exam: Physical Exam: Vitals signs as noted above General Appearance:Moderately built and nourished, no apparent distress Head: normocephalic, Atraumatic Eyes: normal inspection, EOMI Neck: supple, Trachea midline Respiratory/Chest: Normal breath sounds, Basal minimal crackles, No accessory muscle use Cardiovascular: S1, S2, No murmur Abdomen/GI:Soft, Non tender, Bowel sounds present Extremities/Musculoskelatal:normal inspection, Trace pedal edema Neurologic/Psych:AAOX3, grossly no focal neurological deficits Skin: normal color, warm Results & Data Results & Data ([facility]) Vital Signs (Past 12 Hours) Vital Signs Temp Pulse Pulse Resp BP BP BP 05/05/20 14:15 61 16 150/73 H 05/05/20 14:10 36.5 C 59 L 18 163/75 H 05/05/20 13:16 61 16 143/81 H 05/05/20 12:00 36.7 C 63 18 139/79 05/05/20 11:00 61 16 159/78 H 05/05/20 10:00 137/77 05/05/20 09:00 69 18 131/85 05/05/20 08:00 72 18 140/74 05/05/20 07:00 62 19 145/69 H 05/05/20 06:50 62 14 05/05/20 06:40 66 16 05/05/20 06:30 65 17 05/05/20 06:20 77 19 05/05/20 06:10 60 15 05/05/20 06:00 62 15 139/77 05/05/20 05:50 61 16 05/05/20 05:40 62 18 05/05/20 05:30 58 L 17 05/05/20 05:20 68 18 05/05/20 05:10 60 17 05/05/20 05:00 59 L 17 116/58 L 05/05/20 04:50 65 16 05/05/20 04:40 72 21 05/05/20 04:30 64 18 05/05/20 04:20 63 16 05/05/20 04:10 65 19 05/05/20 04:00 36.8 C 64 19 127/80 05/05/20 03:50 66 17 05/05/20 03:40 70 17 05/05/20 03:30 66 17 05/05/20 03:20 68 17 05/05/20 03:10 74 18 05/05/20 03:00 74 17 130/77 Pulse Ox 05/05/20 14:15 99 05/05/20 14:10 98 05/05/20 13:16 99 05/05/20 12:00 97 05/05/20 11:00 05/05/20 10:00 05/05/20 09:00 05/05/20 08:00 96 05/05/20 07:00 05/05/20 06:50 05/05/20 06:40 05/05/20 06:30 05/05/20 06:20 05/05/20 06:10 05/05/20 06:00 05/05/20 05:50 05/05/20 05:40 05/05/20 05:30 05/05/20 05:20 05/05/20 05:10 05/05/20 05:00 05/05/20 04:50 05/05/20 04:40 05/05/20 04:30 05/05/20 04:20 05/05/20 04:10 05/05/20 04:00 05/05/20 03:50 05/05/20 03:40 05/05/20 03:30 05/05/20 03:20 05/05/20 03:10 05/05/20 03:00 Laboratory Results Short CBC 05/04/20 05/05/20 Range/Units 21:03 04:38 WBC 5.55 5.55 (4.8-10.8) K/uL Hgb 9.8 L 9.5 L (12.0-16.0) g/dL Hct 30.2 L 28.8 L (37-47) % Plt Count 221 206 (130-400) K/uL BMP 05/04/20 05/05/20 21:03 04:38 Sodium 140 142 Potassium 4.1 4.0 Chloride 108 H 109 H Carbon Dioxide 23 29 BUN 22 H 19 H Creatinine 0.82 0.70 Glucose 157 H 173 H Calcium 8.4 L 8.2 L Cardiac Enzymes 05/04/20 05/04/20 Range/Units 21:03 23:28 Troponin I < 0.015 < 0.015 (0-0.045) ng/ml Liver Function 05/04/20 Range/Units 21:03 Total Bilirubin 0.3 (0.2-1) mg/dl AST 7 L (15-37) U/L ALT 12 (12-78) U/L Alkaline Phosphatase 68 (45-117) U/L Albumin 3.4 (3.4-5.0) gm/dl
--- NOTE | 2020-05-05 17:06 | Communication Note ---
Date of Service: May 05, 2020 Patient underwent diagnostic coronary angiography today with findings of widely patent stents within the left anterior descending and no aggression and coronary artery disease. Left ventricular end-diastolic pressure within normal limits Plan: We will optimize medical therapies given hypertension and bradycardia. Increase lisinopril to 5 mg twice per day Metoprolol succinate will be changed to 25 mg twice per day but may need reduction in evening dosing
--- NOTE | 2020-05-05 17:31 | XCELERA ---
[id number]
--- NOTE | 2020-05-05 18:00 | Electrocardiogram Report ---
Test Reason : Blood Pressure : / mmHG Vent. Rate : 079 BPM Atrial Rate : 079 BPM P-R Int : 092 ms QRS Dur : 128 ms QT Int : 402 ms P-R-T Axes : 052 -72 035 degrees QTc Int : 460 ms Poor data quality, interpretation may be adversely affected Sinus rhythm with short DC Left axis deviation Non-specific intra-ventricular conduction block T wave abnormality, consider anterior ischemia Abnormal ECG When compared with ECG of 29-FEB-2020 01:46, Non-specific intra-ventricular conduction block has replaced Right bundle branch block Criteria for Septal infarct are no longer Present Confirmed by Eze Marcus ([id number]) on 05/05/2020 6:00:07 PM Referred By: REFERRED SELF Confirmed By:Eze Marcus
--- NOTE | 2020-05-05 18:05 | Electrocardiogram Report ---
Test Reason : Blood Pressure : / mmHG Vent. Rate : 059 BPM Atrial Rate : 059 BPM P-R Int : 104 ms QRS Dur : 132 ms QT Int : 460 ms P-R-T Axes : 049 -71 005 degrees QTc Int : 455 ms Sinus bradycardia with short TX Left axis deviation Right bundle branch block T wave abnormality, consider anterior ischemia Abnormal ECG When compared with ECG of 04-MAY-2020 20:46, (unconfirmed) Nonspecific T wave abnormality now evident in Inferior leads Confirmed by Eze Marcus ([id number]) on 05/05/2020 6:04:54 PM Referred By: REFERRED SELF Confirmed By:Eze Marcus
[2020-05-05] MEDS: lisinopril 5 MG TAB PO SCH (21:36)
[2020-05-06 06:57] LABS: Hematocrit (blood only) 30.8 % (37-47); Hemoglobin 10.3 g/dL (12.0-16.0)
[2020-05-06 07:31] LABS: BUN Creatinine Ratio 19.2 (10-20); Calcium 8.8 mg/dl (8.5-10.1); Creatinine Clr Calc Pharmacy 79.1 ml/min; Est GFR (African American) 102.3; Est GFR (Non-African American) 88.3; Magnesium 1.9 mg/dl (1.8-2.4); Potassium 4.3 mmol/L (3.5-5.1)
[2020-05-06] MEDS: OXYBUTYNIN CHLORIDE 5 MG TAB PO SCH (08:48)
[2020-05-06] MEDS: INSULIN ASPART 100 UNITS/ML 3 ML PEN SC SCH ×2 (08:48→12:40)
[2020-05-06] MEDS: TICAGRELOR 90 MG TAB PO SCH (08:48)
[2020-05-06] MEDS: SERTRALINE HCL 100 MG TABLET PO SCH (08:48)
[2020-05-06] MEDS: lisinopril 5 MG TAB PO SCH (08:49)
[2020-05-06] MEDS: FAMOTIDINE 20 MG TAB PO SCH (08:49)
[2020-05-06] MEDS: ASPIRIN 81 MG ECTAB PO SCH (08:49)
[2020-05-06] MEDS: GABAPENTIN 300 MG CAP PO SCH (08:49)
[2020-05-06] MEDS: ATORVASTATIN 40 MG TAB PO SCH (08:49)
[2020-05-06] MEDS: ENOXAPARIN INJ 40 MG/0.4 ML SYR SQ SCH (08:50)
[2020-05-06] MEDS: INSULIN GLARGINE SOLOSTAR 100 UNITS/ML 3 ML PEN SC SCH (08:50)
[2020-05-06] MEDS ORDERED: METOPROLOL SUCC 25MG EXT REL TAB PO SCH (09:00)
--- NOTE | 2020-05-06 11:20 | Hospitalist Progress Note ---
Date of Service May 06, 2020 Assessment & Plan (1) Chest pain: Chest pain H/O CAD S/P stent S/P Cardiac Cath:No progression in coronary disease with widely patent left anterior descending stents. Normal left end-diastolic pressure CXR:No significant change compared to the prior study. No acute process. Troponin Negative Appreciate cardiology input Continue aspirin, Brilinta, atorvastatin, metoprolol, lisinopril No recurrence of chest pain Continue current medications Hypomagnesemia Replace electrolytes as needed Monitor HTN BP stable Continue lisinopril, metoprolol Ischemic cardiomyopathy Chronic systolic heart failure No signs of decompensation Continue current medications Hyperlipidemia on statin DM II HbA1C: 8.24 Mar 2020 Hold p.o. meds Continue insulin therapy while hospitalized Monitor BGs Mood disorder At baseline Continue home medications DVT Px: Lovenox SQ Code Status Full code Disposition Expect to discharge home today Admission and Anticipated Discharge Date Admission Date: May 05, 2020 Subjective Patient is seen and examined at bedside States feeling well today Offers no complaints Eager to get discharged Denies any recurrence of chest pain Also denies dyspnea, dizziness, nausea, abdominal pain Review of Systems Review of Systems: All systems reviewed & are unremarkable except as noted in HPI & below Physical Exam Physical Exam: Physical Exam: Vitals signs as noted above General Appearance:Moderately built and nourished, no apparent distress Head: normocephalic, Atraumatic Eyes: normal inspection, EOMI Neck: supple, Trachea midline Respiratory/Chest: Normal breath sounds, CTA, No accessory muscle use Cardiovascular: S1, S2, No murmur Abdomen/GI:Soft, Non tender, Bowel sounds present Extremities/Musculoskelatal:normal inspection, Trace pedal edema Neurologic/Psych:AAOX3, grossly no focal neurological deficits Skin: normal color, warm Results & Data Results & Data ([facility]) Vital Signs (Past 12 Hours) Vital Signs Temp Pulse Resp BP Pulse Ox 05/06/20 09:00 72 05/06/20 07:46 36.7 C 67 19 121/70 95 05/06/20 03:28 36.6 C 73 16 156/80 H 96 05/06/20 00:00 36.6 C 64 18 153/76 H 99 Laboratory Results Short CBC 05/06/20 Range/Units 06:46 Hgb 10.3 L (12.0-16.0) g/dL Hct 30.8 L (37-47) % [facility] 05/06/20 06:46 Sodium 141 Potassium 4.3 Chloride 109 H Carbon Dioxide 26 BUN 14 Creatinine 0.73 Glucose 135 H Calcium 8.8
--- NOTE | 2020-05-06 11:27 | Discharge Summary ---
Date of Service May 06, 2020 Admission HPI Per Admitting Provider History obtained from patient and records. Medical history significant for chronic systolic heart failure secondary to ischemic cardiomyopathy (EF 40 to 44%, TTE 2020), CAD status post stent, hypertension, hyperlipidemia, DM2 insulin requiring, GERD, chronic anemia (baseline hemoglobin of 10-11), mood disorder, past tobacco abuse. Last confinement February [address] elevation [place]. 2 drug-eluting stents deployed for acute mid LAD occlusion. EF found to be 35 to 40% on TTE during confinement. 5 days history of intermittent left-sided achy chest pain with radiation to the left arm with some shortness of breath similar to heart attack in the past. No cough symptoms. Not related to exertion. Patient compliant with home medications. No unusual stress at home. Patient currently comfortable at the ER. 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 Admission Exam Per Admitting Provider Physical Exam Physical Exam: GENERAL: Comfortable, pleasant, slightly anxious, obese, no respiratory distress SKIN: Normal color, warm HEENT: Bespectacled, [place] palpebral conjunctivae, no ptosis, dry buccal mucosa NECK : Supple, short neck, no tenderness CHEST : CTA, no tenderness HEART : RRR, no obvious murmurs ABDOMEN: Some distention, nontender RECTAL : Intact sphincter, yellow stool (FOBT negative) EXTREMITIES : No LE swelling/tenderness, no other conspicuous deformities noted NEUROLOGIC : Coherent, no facial asymmetry, no other gross focality Principal Diagnosis Chest pain Hypomagnesemia Hypertension Discharge Data Allergies Allergy/AdvReac Type Severity Reaction Status Date / Time hydrocodone Allergy Mild UNK Verified 05/04/20 23:01 milk Allergy Unknown Unknown Verified 05/04/20 23:01 pine nut Allergy Unknown Verified 05/04/20 23:01 pine Allergy Unknown Unknown Uncoded 05/04/20 23:01 Consultations 05/04/20 22:41 ED Decision to Admit Stat 05/05/20 02:18 Consult Cardiology Routine Procedures Performed Operation Date: 05/05/20 12:00 Actual Procedures p Cath, Left with Cors and Vent - Kiran Horne MD s Cineradiography w/Routine Exam - Kiran Horne MD S/P Cardiac Cath:No progression in coronary disease with widely patent left anterior descending stents. Normal left end-diastolic pressure CXR:No significant change compared to the prior study. No acute process. Ordered Studies 05/05/20 11:44 CL Cath Imgs for PACS use only Routine Hospital Course (1) Chest pain: Chest pain H/O CAD S/P stent S/P Cardiac Cath:No progression in coronary disease with widely patent left anterior descending stents. Normal left end-diastolic pressure CXR:No significant change compared to the prior study. No acute process. Troponin Negative Appreciate cardiology input Continue aspirin, Brilinta, atorvastatin, metoprolol, lisinopril No recurrence of chest pain Continue current medications Hypomagnesemia Replace electrolytes as needed Monitor HTN BP stable Continue lisinopril, metoprolol Ischemic cardiomyopathy Chronic systolic heart failure No signs of decompensation Continue current medications Hyperlipidemia on statin DM II HbA1C: 8.24 Mar 2020 Hold p.o. meds Continue insulin therapy while hospitalized Monitor BGs Mood disorder At baseline Continue home medications DVT Px: Lovenox SQ Code Status Full code Disposition Expect to discharge home today Total Time Total Time Spent Total Time Spent (In Minutes): 39 minutes Total Time Includes: Examination of the Patient, Discharge Planning, Medication Reconciliation, Communication With Other Providers and Other Discharge Plan Discharge Items Patient Disposition: Home - Self-Care Reason For Visit: CHEST PAIN Discharge Diagnosis: Chest pain Hypomagnesemia Hypertension Condition on Discharge: Good Activity: Per Instructions section Exercise/Sports: Gradually increase as tolerated Non-emergency contact: Primary Care Provider and International Marketing Executive Call non-emergency contact if: you have any medication questions, your symptoms worsen, your pain is concerning for you, your wound has increased redness, your wound has increased drainage and your wound pain has increased Follow-up/Referrals: Scarlett Aguilar MD [Primary Care Provider] - 05/10/20 1:00 pm (Please follow up with Dr. Sukhdeep Devries on Friday05/10/20 at 1:00 pm. Please arrive to the office 15 minutes early for your appointment. If you are unable to keep this appointment, please call the office to reschedule at [phone].) Diet: Carb Consistent or DM2 and Heart Healthy Addtl Attending Provider Instructions: Follow-up with your primary care physician Dr. Sukhdeep Devries in 1 week as advised Follow-up with your cna gna next week as scheduled. Medication changes Lisinopril is increased to 5 mg twice a day Metoprolol increased to 25 mg twice a day Seek immediate medical attention if your symptoms reoccur or worsen Addtl Suction Operator Provider Instructions: ACTIVITY RECOMMENDATIONS: Excess manipulation of the wrist should be avoided for the next 24-48 hours. * No lifting over 2 pounds (approximately a 1/2 gallon of milk) with the utilized arm for 24 hours. * No strenuous activity such as bowling or tennis for 3 days. * Keep the site of the procedure covered with a bandage for 24 hours. *You may shower the day after the procedure. Do not take a tub bath or submerge the puncture site in water for the next 3 days. *Do not operate any motorized equipment for 3 days. SPECIAL CARE INSTRUCTIONS: The site may be slightly bruised and sore following your procedure. Should any of the following occur, contact the Dr. who performed your procedure. 1. Redness/inflammation, swelling, chills, or fever, or colored drainage at procedure site within 3-7 days after your procedure. 2. Coldness, discoloration, ongoing numbness, severe pain, or swelling. Expect mild tingling of hand and tenderness at the puncture site for up to three days. If this persists beyond three days, or other symptoms develop, notify the Dr. who performed your procedure. BLEEDING: If the procedure site on your wrist begins to bleed, do not panic 1. Place 1 or 2 fingers firmly just slightly above the insertion site to stop the bleeding. You may be able to feel your pulse as you hold pressure. 2. Lift your finger after 5 minutes to see if the bleeding has stopped. 3. Once the bleeding has stopped, gently wipe the wrist area clean with a bandage. * If the bleeding from your wrist does not stop after 10 minutes, or if there is a large amount of bleeding or spurting, call 911 (do not drive yourself to the hospital). SKIN IRRITATION: * You may experience some redness and/or swelling in the area where radiation was administered. If any skin irritation occurs, please contact your family phys ician. FOLLOW UP VISIT: Keep any scheduled doctor appointments. Pending Studies at Discharge: No Stand-Alone Forms: My [facility], Smoking Cessation Medications and DC Order Prescriptions: New lisinopril [Zestril] 5 mg Tablet 5 mg PO BID Qty: 60 RF: 0 metoprolol succinate 25 mg Tablet Extended Release 24 Hr 25 mg PO BID Qty: 60 RF: 0 Continued metformin 1,000 mg Tablet 1,000 mg PO BIDM Qty: 0 RF: 0 atorvastatin 80 mg Tablet 80 mg PO DAILY RF: 0 famotidine 20 mg Tablet 20 mg PO BID RF: 0 oxybutynin chloride 5 mg Tablet 5 mg PO DAILY RF: 0 Lantus Solostar U-100 Insulin 100 unit/mL (3 mL) insulin pen 12 unit SUBCUT PM Qty: 15 RF: 0 nitroglycerin 0.4 mg tablet, sublingual 0.4 mg sublingual UD PRN (Reason: Chest Pain) RF: 0 Tradjenta 5 mg tablet 5 mg PO DAILY RF: 0 sertraline 100 mg tablet 100 mg PO DAILY RF: 0 Brilinta 90 mg Tablet 90 mg PO BID Qty: 60 RF: 0 aspirin 81 mg Tablet 81 mg PO DAILY RF: 0 gabapentin 300 mg capsule 300 mg PO TID RF: 0 hydroxyzine pamoate 25 mg Capsule 25 mg PO TID PRN (Reason: Itching) RF: 0 insulin aspart U-100 [Novolog Flexpen U-100 Insulin] 100 unit/mL (3 mL) Insulin Pen 3 unit SUBCUT DAILYBB RF: 0 Discontinued lisinopril [Zestril] 5 mg Tablet 5 mg PO QAM Qty: 30 RF: 0 metoprolol succinate 50 mg tablet extended release 24 hr 50 mg PO QAM RF: 0 Discharge Orders: Discharge Order (Routine); Ordered 05/06/20 Ordered By: Juan Woo Admission Data Admit Date/Time: 05/05/20 01:47 Attending Provider: Juan Woo Admit Provider: Lamin Weeks Primary Care Provider: Scarlett Aguilar Other Providers: Lamin Weeks ; Chucky Trammell ; Wilmer Delcid ; Kiran Horne ; Dimitris Bullock ; Dennis Dsouza ; Caden Sesay ; Carole Alejo ; Tess Rosenthal ; Devan Mason Other Interventions: Discharge Summary Assessment (RN) Last Done: 05/06/20 12:32
--- NOTE | 2020-05-06 13:19 | Cardiology Progress Note ---
Date of Service May 06, 2020 Assessment & Plan (1) Chest pain: Patient is a 64-year-old female with difficulty history of progressive coronary disease and acute coronary syndrome in February 2020 with coronary intervention mid left anterior sending emergently. Patient now presents with chest pain and shortness of breath similar to past angina. She was concerned about developing heart failure as a cause of her symptoms but examines euvolemic with clear chest x-ray. Cardiac catheterization on 05/05/2020 revealed widely patent stents and no other significant coronary artery disease. Tolerating medical therapy well will continue and discharged home on metoprolol succinate 25 mg every morning and 12.5 mg every afternoon along with lisinopril. Already scheduled to follow-up in our office on the . Okay to DC to home (2) Ischemic cardiomyopathy: (3) Dyspnea: Admission and Anticipated Discharge Date Admission Date: May 05, 2020 Subjective Patient seen and examined, chart reviewed. No complaints overnight and denies any chest pain, shortness of breath, palpitations, lightheadedness, dizziness or syncope. Anxious for discharge. Telemetry reviewed: Normal sinus rhythm without arrhythmia Review of Systems Review of Systems: All systems reviewed & are unremarkable except as noted in HPI & below Physical Exam Physical Exam: General: Awake, alert and oriented x 3. No acute distress. HEENT: Normocephalic, atraumatic. Pupils equal, round and reactive to light and accommodation. Extraocular muscles are intact. Anicteric sclera. Moist mucous membranes. Neck: No JVD. No bruit. Cardiovascular: Regular. Positive S-4. Normal S-1 and S-2. No S-3. No murmurs or rubs. Pulmonary: Clear to auscultation B/L. No rales, rhonchi or wheezing Abdomen: Bowel sounds x 4, soft. No rebound, guarding or tenderness. No organomegaly. Extremities: No clubbing, cyanosis or edema. +2 pedal pulses bilaterally. Skin: Warm and dry. Results & Data ([facility]) Vital Signs (Past 12 Hours) Vital Signs Temp Pulse Resp BP BP Pulse Ox 05/06/20 12:32 36.7 C 67 19 121/70 150/73 H 95 05/06/20 12:29 67 05/06/20 09:00 72 05/06/20 07:46 36.7 C 67 19 121/70 95 05/06/20 03:28 36.6 C 73 16 156/80 H 96 (1) Dyspnea Dyspnea type: dyspnea on exertion Qualified Code(s): R06.00 - Dyspnea, unspecified
--- NOTE | 2020-05-07 06:00 | Electrocardiogram Report ---
Test Reason : Blood Pressure : / mmHG Vent. Rate : 052 BPM Atrial Rate : 052 BPM P-R Int : 094 ms QRS Dur : 112 ms QT Int : 480 ms P-R-T Axes : 051 -36 -29 degrees QTc Int : 446 ms Sinus bradycardia with short OK Left axis deviation T wave abnormality, consider anterior ischemia Abnormal ECG When compared with ECG of 05-MAY-2020 05:24, QRS duration has decreased T wave inversion now evident in Anterolateral leads Confirmed by Gerald Quick ([id number]) on 05/07/2020 6:00:35 AM Referred By: REFERRED SELF Confirmed By:Gerald Quick
--- NOTE | 2020-05-07 06:30 | Electrocardiogram Report ---
Test Reason : Blood Pressure : / mmHG Vent. Rate : 077 BPM Atrial Rate : 077 BPM P-R Int : 104 ms QRS Dur : 110 ms QT Int : 456 ms P-R-T Axes : 065 -54 -48 degrees QTc Int : 516 ms Sinus rhythm with short TX with possible rate related QRS lengthening Left anterior fascicular block T wave abnormality, consider anterior ischemia Prolonged QT Abnormal ECG When compared with ECG of 05-MAY-2020 16:17, Vent. rate has increased BY 25 BPM QT has lengthened Confirmed by Gerald Quick ([id number]) on 05/07/2020 6:30:03 AM Referred By: REFERRED SELF Confirmed By:Gerald Quick
== END 2020-05-06 13:11 | disposition home or self-care (01) ==
LOC: ED 20:42 → 1E 20:42 → 2S 05-05 14:02

== ENCOUNTER 2020-12-26 07:39 | Observation (INO) ==
[2020-12-26] MEDS ORDERED: FUROSEMIDE 40 MG/4 ML VIAL IV STA (08:04)
[2020-12-26] MEDS ORDERED: ALBUT/IPRATROP 3MG/0.5MG NEB 3 ML VIAL INH STA (08:04)
--- NOTE | 2020-12-26 08:17 | Emergency Department Note ---
History of Present Illness General Chief complaint: Chest Pain Stated complaint: CHEST PAIN, SOB Time Seen by Provider: 12/26/20 07:51 History of Present Illness 65-year-old female presents to the ED with a chief complaint of shortness of breath for the past few days that is worse with exertion. The patient states that she feels that she is in fluid overload. She has not had any cold symptoms or infectious symptoms. She states that last night she was peeing all night and she did not sleep because of being in the bathroom all night urinating. She states that when she takes a breath or coughs, she feels fluid in her lungs. She also has had pedal edema. No fevers. No nausea vomiting. No diarrhea. No chest pains. Home Medications Medication Instructions Recorded Confirmed Type metformin 1,000 mg tablet 1,000 mg PO BIDM #0 06/30/09 12/26/20 History gabapentin 300 mg capsule 300 mg PO TID 02/06/18 12/26/20 History (Neurontin) atorvastatin 80 mg tablet (Lipitor) 80 mg PO QAM 03/29/18 12/26/20 History famotidine 20 mg tablet (Pepcid) 20 mg PO BID 12/26/19 12/26/20 History oxybutynin chloride 5 mg tablet 5 mg PO HS 12/26/19 12/26/20 History linagliptin 5 mg tablet (Tradjenta) 5 mg PO QAM 02/28/20 12/26/20 History nitroglycerin 0.4 mg sublingual 0.4 mg SUBLINGUAL UD PRN 02/28/20 12/26/20 History tablet (Nitrostat) sertraline 100 mg tablet (Zoloft) 100 mg PO QAM 02/28/20 12/26/20 History ticagrelor 90 mg tablet (Brilinta) 90 mg PO BID #60 tab 03/02/20 12/26/20 Rx lisinopril 5 mg tablet (Zestril) 5 mg PO BID #60 tab 05/06/20 12/26/20 Rx aspirin 81 mg tablet,delayed 81 mg PO QAM 12/26/20 12/26/20 History release (Aspirin Low Dose) metoprolol succinate 25 mg 25 mg PO BID 12/26/20 12/26/20 History tablet,extended release 24 hr (Toprol XL) pantoprazole 20 mg tablet,delayed 20 mg PO HS 12/26/20 12/26/20 History release (Protonix) Allergies Allergy/AdvReac Type Severity Reaction Status Date / Time hydrocodone Allergy Mild UNK Verified 12/26/20 08:29 milk Allergy Unknown Unknown Verified 12/26/20 08:29 pine nut Allergy Unknown Verified 12/26/20 08:29 pine Allergy Unknown Unknown Uncoded 12/26/20 08:29 Past Med/Surg History Medical History Arthritis Depression Diabetes Surgical History No pertinent past surgical history Family History Other Deep vein thrombosis Social History Smoking Status: Former smoker Second Hand Exposure: No; Hx Alcohol Use: No Hx Substance Use: No Preferred Language: [place] Communication Ability: Effective Visual Impairment: No Limitations Hearing Ability: Normal Ramp Lead Required: No Beliefs That Will Affect Care: None marital status: Current Living Situation: Family Current Living Situation Comment: The patient states that she lives with her child and their fianc. current occupational status: unemployed Feels Safe at Home: Yes Assistive Devices: Glasses Review of Systems A total of 10 systems reviewed and were otherwise negative Physical Exam Vital Signs Vital Signs - 24 hr 12/26/20 07:44 12/26/20 08:05 12/26/20 08:17 Temperature 36.7 C Temperature Source Oral Pulse Rate 93 H 89 Pulse Rate [Finger] Pulse Rate from SpO2 Sensor 93 H Respiratory Rate 24 32 H Respiratory Effort / Characteristics Non-Labored Spontaneous Spontaneous Respiratory Depth Normal Normal Blood Pressure 151/97 H 151/97 H Blood Pressure Mean 115 115 Blood Pressure Position Sitting Pulse Oximetry 97 83 L 83 L Oxygen Delivery Method Oxymask Room Air Room Air Oxygen Flow Rate 6 Sepsis Recent Fever Within 48 Hours No Sepsis New/Unexplained Change in Mental Status N/A Sepsis Action Taken by Nursing No Action Required 12/26/20 08:19 12/26/20 08:49 12/26/20 09:16 Temperature Temperature Source Pulse Rate 92 H Pulse Rate [Finger] 89 Pulse Rate from SpO2 Sensor 76 Respiratory Rate 20 22 Respiratory Effort / Characteristics Non-Labored Spontaneous Respiratory Depth Blood Pressure 138/82 Blood Pressure Mean 100 Blood Pressure Position Pulse Oximetry 83 L 95 96 Oxygen Delivery Method Room Air Oxymask Oxymask Oxygen Flow Rate 6 6 Sepsis Recent Fever Within 48 Hours Sepsis New/Unexplained Change in Mental Status Sepsis Action Taken by Nursing 12/26/20 09:30 Temperature Temperature Source Pulse Rate 89 Pulse Rate [Finger] Pulse Rate from SpO2 Sensor Respiratory Rate 22 Respiratory Effort / Characteristics Respiratory Depth Blood Pressure 163/99 H Blood Pressure Mean 120 Blood Pressure Position Pulse Oximetry Oxygen Delivery Method Oxygen Flow Rate Sepsis Recent Fever Within 48 Hours Sepsis New/Unexplained Change in Mental Status Sepsis Action Taken by Nursing CONSTITUTIONAL/VITAL SIGNS: Reviewed / noted above. GENERAL: Non-toxic in appearance. INTEGUMENTARY: Warm, dry, and [place]. HEAD: Normocephalic. EYES: without scleral icterus or trauma. ENT/OROPHARYNX: clear and moist. LYMPHADENOPATHY/NECK: Is supple without lymphadenopathy or meningismus. RESPIRATORY: Clear to auscultation bilaterally. No increased work of breathing. CARDIOVASCULAR: Regular rate and rhythm. GI/ABDOMEN: Soft and nontender. No organomegaly or pulsatile mass. EXTREMITIES: Warm and well perfused. BACK: No CVA tenderness. NEUROLOGICAL: Intact without focal deficits. PSYCHIATRIC: normal affect. MUSCULOSKELETAL: Normally developed with good muscle tone. TRIAGE NURSING DOCUMENTATION REVIEWED. Course Administered Medications Discontinued Medications Albuterol (Albut/Ipratrop 3mg/0.5mg Neb 3 Ml Vial) 3 ml INH NOW STA Stop: 12/26/20 08:05 Last Admin: 12/26/20 08:48 Dose: 3 ml Documented by: [id number] Furosemide (Furosemide 40 Mg/4 Ml Vial) 40 mg IV NOW STA Stop: 12/26/20 08:05 Last Admin: 12/26/20 09:15 Dose: 40 mg Documented by: [id number] Ceftriaxone Sodium (Rocephin) 1,000 mg in 50 mls @ 100 mls/hr IV NOW STA Stop: 12/26/20 09:44 Last Admin: 12/26/20 09:34 Dose: 100 mls/hr Documented by: [id number] Medical Decision Making Differential Diagnosis The differential was considered includes acute myocardial infarction, acute coronary syndrome, myocarditis, pericarditis, pericardial effusions /tamponad, esophageal perforation, pulmonary embolism, pneumonia, pneumothorax, cardiomyopathy, congestive heart, anemia , COPD/asthma exacerbation. Medical Records Attestation: I reviewed the patient's medical records. Home Medications Current Medication List: was personally reviewed by me Laboratory Data Attestation: I reviewed the patient's lab results. Result diagrams: 12/26/20 08:49 12/26/20 08:49 Lab Results 12/26/20 12/26/20 12/26/20 Range/Units 08:35 08:35 08:49 WBC 5.84 (4.8-10.8) K/uL RBC 3.33 L (4.2-5.4) M/uL Hgb 9.6 L (12.0-16.0) g/dL Hct 30.3 L (37-47) % MCV 91.0 (80-100) fL MCH 28.8 (25-34) pg MCHC 31.7 L (32-36) g/dL RDW Std Deviation 50.1 H (36.4-46.3) fL RDW Coeff of Ronaldo 15.0 H (11.5-14.5) % Plt Count 206 (130-400) K/uL MPV 10.1 (7.4-10.4) fL Immature Gran % (Auto) 0.5 % Neut % (Auto) 81.9 % Lymph % (Auto) 12.7 % [place] % (Auto) 3.6 % Eos % (Auto) 1.0 % Baso % (Auto) 0.3 % Neut # (Auto) 4.78 (1.4-6.5) K/uL Lymph # (Auto) 0.74 L (1.2-3.4) K/uL [place] # (Auto) 0.21 (0.11-0.59) K/uL Eos # (Auto) 0.06 (0-0.5) K/uL Baso # (Auto) 0.02 (0-0.2) K/uL Immature Gran # (Auto) 0.03 H (0.00-0.02) K/uL PT (9.0-12.0) Seconds INR (0.9-1.1) APTT (21.0-31.0) Seconds PTT Ratio Sodium (136-145) mmol/L Potassium (3.5-5.1) mmol/L Chloride (98-107) mmol/L Carbon Dioxide (21-32) mmol/L Anion Gap (3-11) BUN (7-18) mg/dl Creatinine (0.6-1.2) mg/dl Est Cr Clr Drug Dosing ml/min Est GFR ( Amer) ml/min Est GFR (Non-Af Amer) ml/min BUN/Creatinine Ratio (10-20) Glucose (70-99) mg/dl Calcium (8.5-10.1) mg/dl Total Bilirubin (0.2-1) mg/dl AST (15-37) U/L ALT (12-78) U/L Alkaline Phosphatase (45-117) U/L Troponin I (0-0.045) ng/ml NT-Pro-B Natriuret Pep (0-900) pg/ml Total Protein (6.4-8.2) gm/dl Albumin (3.4-5.0) gm/dl Globulin (2.5-4.0) gm/dl Albumin/Globulin Ratio (0.9-2) Urine Color Yellow Urine Appearance Cloudy A (Clear) Urine pH 6.0 (4.5-7.5) Ur Specific [place] 1.015 (1.000-1.030) Urine Protein 3+ H (Negative) Urine Glucose (UA) Trace H (Negative) Urine Ketones Negative (Negative) Urine Blood 1+ H (Negative) Urine Nitrite Positive A (Negative) Urine Bilirubin Negative (Negative) Urine Urobilinogen Negative (Negative) Ur Leukocyte Esterase Trace H (Negative) Urine WBC (Auto) >30 H (0-5) /hpf Urine RBC (Auto) 5-10 H (0-4) /hpf U Hyaline Cast (Auto) 1-5 (0-5) /lpf U Epithel Cells (Auto) 5-10 H (0-5) /lpf Urine Bacteria (Auto) 4+ H (Negative) COVID-19 Eval Order Covid19 at [facility] 12/26/20 12/26/20 Range/Units 08:49 08:49 WBC (4.8-10.8) K/uL RBC (4.2-5.4) M/uL Hgb (12.0-16.0) g/dL Hct (37-47) % MCV (80-100) fL MCH (25-34) pg MCHC (32-36) g/dL RDW Std Deviation (36.4-46.3) fL RDW Coeff of Ronaldo (11.5-14.5) % Plt Count (130-400) K/uL MPV (7.4-10.4) fL Immature Gran % (Auto) % Neut % (Auto) % Lymph % (Auto) % [place] % (Auto) % Eos % (Auto) % Baso % (Auto) % Neut # (Auto) (1.4-6.5) K/uL Lymph # (Auto) (1.2-3.4) K/uL [place] # (Auto) (0.11-0.59) K/uL Eos # (Auto) (0-0.5) K/uL Baso # (Auto) (0-0.2) K/uL Immature Gran # (Auto) (0.00-0.02) K/uL PT 10.4 (9.0-12.0) Seconds INR 1.0 (0.9-1.1) APTT 24.2 (21.0-31.0) Seconds PTT Ratio 0.9 Sodium 140 (136-145) mmol/L Potassium 4.2 (3.5-5.1) mmol/L Chloride 108 H (98-107) mmol/L Carbon Dioxide 25 (21-32) mmol/L Anion Gap 6.0 (3-11) BUN 18 (7-18) mg/dl Creatinine 0.91 (0.6-1.2) mg/dl Est Cr Clr Drug Dosing 71.5 ml/min Est GFR ( Amer) 77.8 ml/min Est GFR (Non-Af Amer) 67.1 ml/min BUN/Creatinine Ratio 19.9 (10-20) Glucose 214 H (70-99) mg/dl Calcium 8.5 (8.5-10.1) mg/dl Total Bilirubin 0.4 (0.2-1) mg/dl AST 9 L (15-37) U/L ALT 7 L (12-78) U/L Alkaline Phosphatase 79 (45-117) U/L Troponin I < 0.015 (0-0.045) ng/ml NT-Pro-B Natriuret Pep 9980 H (0-900) pg/ml Total Protein 7.0 (6.4-8.2) gm/dl Albumin 2.8 L (3.4-5.0) gm/dl Globulin 4.2 H (2.5-4.0) gm/dl Albumin/Globulin Ratio 0.7 L (0.9-2) Urine Color Urine Appearance (Clear) Urine pH (4.5-7.5) Ur Specific [place] (1.000-1.030) Urine Protein (Negative) Urine Glucose (UA) (Negative) Urine Ketones (Negative) Urine Blood (Negative) Urine Nitrite (Negative) Urine Bilirubin (Negative) Urine Urobilinogen (Negative) Ur Leukocyte Esterase (Negative) Urine WBC (Auto) (0-5) /hpf Urine RBC (Auto) (0-4) /hpf U Hyaline Cast (Auto) (0-5) /lpf U Epithel Cells (Auto) (0-5) /lpf Urine Bacteria (Auto) (Negative) COVID-19 Eval Order Imaging Data Radiologist's Impression: Chest X-Ray 12/26/20 08:04 XR chest 1V portable CLINICAL HISTORY: Dyspnea COMPARISON STUDY: Chest radiograph May 04, 2020. FINDINGS: There is no pneumothorax. Small bilateral pleural effusions are present with bibasilar opacities. There is moderate pulmonary edema. Mild cardiomegaly is noted. IMPRESSION: Moderate interstitial pulmonary edema with small bilateral pleural effusions and associated bibasilar opacities. Radiographic follow-up is recommended to ensure resolution. ACT 112: Negative or not required by law. Electronically signed by: Kevyn Duarte M.D. 12/26/2020 8:46 AM ECG Data Attestation: I personally reviewed and interpreted this ECG as follows: Additional Comments: Twelve-lead EKG: Per my interpretation there is a sinus rhythm at a rate of 98. The patient appears to have just bigeminal PACs. Right bundle branch block pattern. No ST elevation. Normal QTC. MDM Narrative 65-year-old female presents with shortness of breath for the past 3 days that is worse with exertion. She is also had increased pedal edema. History of [place] and stents. History of diabetes and hypertension. Pulse ox here was anywhere from 76 to 83% on room air. She is tachypneic with a rate of 32. She is afebrile. Blood pressure is slightly elevated 151/97. Chest x-ray shows findings of pulmonary edema. Twelve-lead EKG does not show any acute ischemic changes. Troponin is negative. BNP is 9980. Urine is suggestive of UTI. The patient was treated with IV Rocephin, IV Lasix and a DuoNeb treatment. She is requiring about 6 L of oxygen to maintain saturations in the mid to high 90s. She will require further inpatient evaluation and care. Impression & Plan Pulmonary edema, Hypoxia, UTI (urinary tract infection) Discharge Plan Visit Data Chief Complaint: Chest Pain Stated Complaint: CHEST PAIN, SOB ED Provider: Brad Chappell Discharge Problem: Pulmonary edema, Hypoxia, UTI (urinary tract infection) Patient Disposition: Being Evaluated by Hospitalist Forms Stand Alone Forms: [facility], [facility] Emergency Department, Important Visit Information Prescriptions Prescriptions: No Action metformin 1,000 mg Tablet 1,000 mg PO BIDM Qty: 0 RF: 0 atorvastatin [Lipitor] 80 mg Tablet 80 mg PO QAM RF: 0 famotidine [Pepcid] 20 mg Tablet 20 mg PO BID RF: 0 oxybutynin chloride 5 mg Tablet 5 mg PO HS RF: 0 nitroglycerin [Nitrostat] 0.4 mg tablet, sublingual 0.4 mg sublingual UD PRN (Reason: Chest Pain) RF: 0 Tradjenta 5 mg tablet 5 mg PO QAM RF: 0 sertraline [Zoloft] 100 mg tablet 100 mg PO QAM RF: 0 Brilinta 90 mg Tablet 90 mg PO BID Qty: 60 RF: 0 lisinopril [Zestril] 5 mg Tablet 5 mg PO BID Qty: 60 RF: 0 gabapentin [Neurontin] 300 mg capsule 300 mg PO TID RF: 0 aspirin [Aspirin Low Dose] 81 mg Tablet,Delayed Release (Dr/Ec) 81 mg PO QAM RF: 0 pantoprazole [Protonix] 20 mg tablet,delayed release (DR/EC) 20 mg PO HS RF: 0 metoprolol succinate [Toprol XL] 25 mg tablet extended release 24 hr 25 mg PO BID RF: 0 Referrals Referrals: Scarlett Aguilar MD [Primary Care Provider] -
--- NOTE | 2020-12-26 08:47 | XRay Report ---
XR chest 1V portable CLINICAL HISTORY: Dyspnea COMPARISON STUDY: Chest radiograph May 04, 2020. FINDINGS: There is no pneumothorax. Small bilateral pleural effusions are present with bibasilar opac ities. There is moderate pulmonary edema. Mild cardiomegaly is noted. IMPRESSION: Moderate interstitial pulmonary edema with small bilateral pleural effusions and associa thea bibasilar opacities. Radiographic follow-up is recommended to ensure resolution. ACT 112: Negative or not required by law. Electronically signed by: Kevyn Duarte M.D. 12/26/2020 8:46 AM
[2020-12-26 08:49] LABS: Appearance Urine Cloudy (Clear); Bacteria Urine Automated 4+ (Negative); Bilirubin Urine Negative (Negative); Blood Urine 1+ (Negative); Color Urine Yellow; Glucose Urine UA Trace (Negative); Ketones Urine Negative (Negative); Leukocyte Esterase Urine Trace (Negative); Nitrite Urine Positive (Negative); Protein Urine 3+ (Negative); Specific Gravity Urine 1.015 (1.000-1.030); Urobilinogen Urine Negative (Negative); WBC Urine Automated >30 /hpf (0-5)
[2020-12-26 09:06] LABS: Basophils # (auto) 0.02 K/uL (0-0.2); Basophils % (auto) 0.3 %; Eosinophils # (auto) 0.06 K/uL (0-0.5); Hematocrit (blood only) 30.3 % (37-47); Hemoglobin 9.6 g/dL (12.0-16.0); Immature Granulocytes # (auto) 0.03 K/uL (0.00-0.02); Immature Granulocytes % (auto) 0.5 %; Lymphocytes # (auto) 0.74 K/uL (1.2-3.4); Lymphocytes % (auto) 12.7 %; Mean Corpuscular Hemoglobin 28.8 pg (25-34); Mean Corpuscular Hgb Conc 31.7 g/dL (32-36); Mean Platelet Volume 10.1 fL (7.4-10.4); Monocytes # (auto) 0.21 K/uL (0.11-0.59); Monocytes % (auto) 3.6 %; Neutrophils # (auto) 4.78 K/uL (1.4-6.5); Neutrophils % (auto) 81.9 %; Platelet Count 206 K/uL (130-400); RDW Standard Deviation 50.1 fL (36.4-46.3); Red Blood Count 3.33 M/uL (4.2-5.4); White Blood Count 5.84 K/uL (4.8-10.8)
[2020-12-26] MEDS ORDERED: cefTRIAXone SODIUM 1,000 MG/50 ML BAG IV STA (09:15)
[2020-12-26 09:17] LABS: Partial Thromboplastin Ratio 0.9; Partial Thromboplastin Time 24.2 Seconds (21.0-31.0); Prothrombin Time 10.4 Seconds (9.0-12.0)
[2020-12-26 09:30] LABS: Alanine Aminotransferase 7 U/L (12-78); Albumin Level 2.8 gm/dl (3.4-5.0); Aspartate Aminotransferase 9 U/L (15-37); BUN Creatinine Ratio 19.9 (10-20); Blood Urea Nitrogen 18 mg/dl (7-18); Calcium 8.5 mg/dl (8.5-10.1); Carbon Dioxide 25 mmol/L (21-32); Chloride 108 mmol/L (98-107); Creatinine Clr Calc Pharmacy 71.5 ml/min; Est GFR (African American) 77.8 ml/min; Est GFR (Non-African American) 67.1 ml/min; Glucose 214 mg/dl (70-99); Potassium 4.2 mmol/L (3.5-5.1); Sodium 140 mmol/L (136-145)
[2020-12-26 09:35] LABS: Albumin Globulin Ratio 0.7 (0.9-2); Alkaline Phosphatase 79 U/L (45-117); Bilirubin,Total 0.4 mg/dl (0.2-1); Globulin 4.2 gm/dl (2.5-4.0); NT Pro B Type Natriuretic Pept 9980 pg/ml (0-900); Troponin I < 0.015 ng/ml (0-0.045)
--- NOTE | 2020-12-26 10:57 | History & Physical Report ---
Date of Service December 26, 2020 Assessment & Plan (1) Acute decompensated heart failure: (2) Hypertensive urgency: (3) Hypoxia: (4) UTI (urinary tract infection): (5) Anemia: Plan: SOB with Hypoxia: -2/2 ADHF - has hx of HFmrEF -Echo from 04/2020: EF of 45-50%, LVH with severe hypokineisis of distal anterior wall and apex -CXR: Moderate interstitial pulmonary edema with small bilateral pleural effusions and associated bibasilar opacities. -Echo ordered - will repeat CXR tomorrow to monitor the pulm edema and response to Lasix - will continue Lasix 40mg IV daily - wean off oxygen as pt tolerates - BMP daily -Daily weights, Strict I/O, fluid restriction 1500 mL -Cardiology consult HTN urgency: -BP improved with IV Lasix -will continue home Bp meds -monitor pt on tele UTI: uncomplicated -UCx sent -will continue the pt on IV ceftriaxone for now Chronic hx of Anemia: -baseline hgb: ~10 -iron study from clinic: high ferritin and low normal Iron -pt denied any bloody or dark stool - trend hgb CAD s/p DORIAN stent: -c/w Brilinta, BB, aspirin & statin DMII: -hold home PO meds -ISS HLD/GERD/Anxiety/Depression: -continue home meds Diet:Cardiac and DMII DVT PPx:Lovenox Code Status:Full Code Emergency Contact:Florentin [phone] () History of Present Illness Chief Complaint: SOB Primary Care Provider: Scarlett Devries MD Pt is a 65 y/o F with hx of CAD s/p 2 DORIAN, HFmrEF (45-59%), hx of STEMI, Chronic anemia, HTN, DMII, HLD, DAVID, GERD, Anxiety/depression came to the ER with one day hx of urinary frequency and 3 day hx of SOB, cough. Today pt had one episode of NBNB vomiting and nausea. Denied any abd pain, CP, fever, dysuria or hematuria or orthopnea. Denied any COVID exposure. Never taken Lasix in the past. At bedside: per pt her SOB improving with oxygen and Lasix. Denied any CP, DEVINE, Blurry vision or dizziness. In the ER pt was given ceftriaxone and Lasix 40mg IV. She was put on oximask for hypoxia Allergies Allergy/AdvReac Type Severity Reaction Status Date / Time hydrocodone Allergy Mild UNK Verified 12/26/20 08:29 milk Allergy Unknown Unknown Verified 12/26/20 08:29 pine nut Allergy Unknown Unknown Verified 12/26/20 11:34 Home Medications Medication Instructions Recorded Confirmed Type metformin 1,000 mg tablet 1,000 mg PO BIDM #0 06/30/09 12/26/20 History gabapentin 300 mg capsule 300 mg PO TID 02/06/18 12/26/20 History (Neurontin) atorvastatin 80 mg tablet (Lipitor) 80 mg PO QAM 03/29/18 12/26/20 History famotidine 20 mg tablet (Pepcid) 20 mg PO BID 12/26/19 12/26/20 History oxybutynin chloride 5 mg tablet 5 mg PO DAILY 12/26/19 12/26/20 History linagliptin 5 mg tablet (Tradjenta) 5 mg PO QAM 02/28/20 12/26/20 History nitroglycerin 0.4 mg sublingual 0.4 mg SUBLINGUAL UD PRN 02/28/20 12/26/20 History tablet (Nitrostat) sertraline 100 mg tablet (Zoloft) 100 mg PO QAM 02/28/20 12/26/20 History ticagrelor 90 mg tablet (Brilinta) 90 mg PO BID #60 tab 03/02/20 12/26/20 Rx lisinopril 5 mg tablet (Zestril) 5 mg PO BID #60 tab 05/06/20 12/26/20 Rx aspirin 81 mg tablet,delayed 81 mg PO QAM 12/26/20 12/26/20 History release (Aspirin Low Dose) metoprolol succinate 25 mg 25 mg PO BID 12/26/20 12/26/20 History tablet,extended release 24 hr (Toprol XL) pantoprazole 20 mg tablet,delayed 20 mg PO DAILY 12/26/20 12/26/20 History release (Protonix) Past Med/Surg History Medical History (Updated 12/26/20 @ 12:27 by Prashant Dinh MD) Anemia Arthritis CAD (coronary artery disease) Depression Diabetes HTN (hypertension) Surgical History (Updated 12/26/20 @ 12:27 by Prashant Dinh MD) No pertinent past surgical history S/P arterial stent Family History Other Deep vein thrombosis Social History Smoking Status: Former smoker Second Hand Exposure: No; Hx Alcohol Use: Yes Alcohol type: other Hx Substance Use: No Preferred Language: Citizen Of [place] Communication Ability: Effective Visual Impairment: No Limitations Hearing Ability: Normal Prn Occupational Therapist Required: No Beliefs That Will Affect Care: None marital status: Current Living Situation: Spouse Current Living Situation Comment: The patient states that she lives with her child and their fianc. current occupational status: unemployed Other Information That Helps Us Care for You: No Feels Safe at Home: Yes Safety Concerns: Feels Safe At This Time Assistive Devices: Cane, CPAP, Denture - Upper, Denture - Lower, Glasses and Oxygen - at Night Review of Systems Review of Systems: At least 10 Review of systems were reviewed and all neg ative except as indicated in HPI Physical Exam Physical Exam: General:.oxymask in place (3L), NAD, well developed, well nourished, average body habitus HEENT:. Normocephalic and atraumatic, Normal Conjunctiva, EOMI, Sclera is non- icteric Lungs:.b/l lower lobe crackles, no wheezing, fair air entry b/l Heart:. Normal S1, S2, no murmur Abdominal:. ND, Soft, NT MSK:b/l distal LE mild pitting edema Skin:. no rash or open wound Psych:. AAOx3, normal affect Results & Data Results & Data ([facility]) Vital Signs (Past 12 Hours) Vital Signs Temp Pulse Pulse Resp BP Pulse Ox 12/26/20 09:30 89 22 163/99 H 12/26/20 09:16 92 H 22 138/82 96 12/26/20 08:49 89 20 95 12/26/20 08:19 83 L 12/26/20 08:17 83 L 12/26/20 08:05 36.7 C 89 32 H 151/97 H 83 L 12/26/20 07:44 93 H 24 151/97 H 97 Laboratory Results Short CBC 12/26/20 Range/Units 08:49 WBC 5.84 (4.8-10.8) K/uL Hgb 9.6 L (12.0-16.0) g/dL Hct 30.3 L (37-47) % Plt Count 206 (130-400) K/uL BMP 12/26/20 08:49 Sodium 140 Potassium 4.2 Chloride 108 H Carbon Dioxide 25 BUN 18 Creatinine 0.91 Glucose 214 H Calcium 8.5 Cardiac Enzymes 12/26/20 Range/Units 08:49 Troponin I < 0.015 (0-0.045) ng/ml Liver Function 12/26/20 Range/Units 08:49 Total Bilirubin 0.4 (0.2-1) mg/dl AST 9 L (15-37) U/L ALT 7 L (12-78) U/L Alkaline Phosphatase 79 (45-117) U/L Albumin 2.8 L (3.4-5.0) gm/dl Urine 12/26/20 Range/Units 08:35 Urine Color Yellow Urine Appearance Cloudy A (Clear) Urine pH 6.0 (4.5-7.5) Ur Specific [place] 1.015 (1.000-1.030) Urine Protein 3+ H (Negative) Urine Glucose (UA) Trace H (Negative) Diagnostic Findings Chest X-Ray 12/26/20 08:04 XR chest 1V portable CLINICAL HISTORY: Dyspnea COMPARISON STUDY: Chest radiograph May 04, 2020. FINDINGS: There is no pneumothorax. Small bilateral pleural effusions are present with bibasilar opacities. There is moderate pulmonary edema. Mild cardiomegaly is noted. IMPRESSION: Moderate interstitial pulmonary edema with small bilateral pleural effusions and associated bibasilar opacities. Radiographic follow-up is recommended to ensure resolution. ACT 112: Negative or not required by law. Electronically signed by: Kevyn Duarte M.D. 12/26/2020 8:46 AM Code Status & VTE Plan VTE Prophylaxis Plan VTE Prophylaxis will be ordered: Yes
--- NOTE | 2020-12-26 11:31 | Cardiology Consultation ---
Date of Consultation December 26, 2020 Assessment & Plan (1) Acute on chronic systolic HF (heart failure): (2) Pulmonary edema: (3) UTI (urinary tract infection): (4) Ischemic cardiomyopathy: Patient admitted after 3 days of worsening SOB associated with weight gain, edema, and pulm congestion noted on xray with b/l pleural effusions, consistent with acute on chronic systolic HF exacerbation. Typically patient has not required diuretic in the past, however due to recent dietary indiscretion, her volume status quickly changed with acute CHF exacerbation. Continue Furosemide 40 mg IV, at least once per day. She received her first dose this morning and continues to urinate frequently. Recommend reassessing her symptoms/status/vitals this afternoon and consider repeat dose. Initial Cardiac enzymes are negative. She does have new RBBB/LAFB on EKG. Will update echo to reassess LV function, previously about 45%. Monitor I+O's. Recheck BMP in the morning. Replace electrolytes as needed. Will likely benefit from low dose diuretic on discharge. Continue all other medications including ASA, Brilinta, atorvastatin, lisinopril, metoprolol. UTI treatment per hospitalist. Case discussed with Dr. Bullock. Will follow. Supervising Physician Co-Signing Physician Notes Patient seen and examined at the bedside. Feeling better with administration of intravenous furosemide. Admits to recent dietary indiscretions including excessive sodium intake. Admits to orthopnea and dyspnea with minimal exertion. PE: VSS. Gen: NAD, AAOx3. Heart: Regular rhythm, normal S1-S2. Pulm: Diminished breath sounds at the bases bilateral. + Bilateral rales. Ext: Trace to mild bilateral pedal and ankle edema. A/P: Agree with above PA-C history, physical exam, assessment and plan. Recommend Lasix 40 mg IV twice daily. She will receive her second dose of Lasix today at approximately 5 PM. Follow daily weight, fluid balance, GFR, and electrolytes. Review resting 2D transthoracic echocardiogram when available. Continue aspirin, ticagrelor, statin, beta-erickson, and ERA inhibitor as previously ordered. History of Present Illness Reason for Consultation: SOB; CHF Requesting Physician: Dr. Dinh Attending Physician: Dr. Bullock History of Present Illness Patient is a 65 year old female known to [facility] following with Dr. Delcid/Tristan as an outpatient. Cardiac History includes: 1. History of hypertensive urgency 2. Cardiac cath in Jan 2020 revealing moderate non obstructive disease with intermediate mid LAD lesion which was felt to not be hemodynamically significant by FFR assessment. 3. Anterior STEMI in February 2020 with 2 DORIAN for 100% occlusion to the LAD, LVEF 40-45% at that time 4. Repeat cath in Apr 2020 due to recurrent chest pain, revealing patent stents to the LAD and non obstructive disease. LVEF 45-50% at that time 5. Dyslipidemia Other history includes DM, GERD with persistent nausea. She was to have outpatient EGD and possible colonoscopy due to persistent anemia, but this was on hold due to the need for dual antiplatelet therapy and recent stents. Patient presented to the [place] ER today via EMS after 3 days of progressive SOB/dyspnea at home. She noted worsening fluid retention, LE edema, weight gain of about 14 lbs in the last week. Baseline weight was 164 and she was reportedly 178 this morning. She reports dietary indiscretion with eating salted pretzels over the last week. She denies recent chest pain. She did not sleep last night due to orthopnea and frequent urination. Due to her significant SOB this mo rning, EMS was summoned by family members. Upon arrival, she was found to be hypoxic in the 80's. EKG demonstrated NSR with fusion beats, and RBBB with LAFB, RBBB appears new compared to prior EKG. Initial troponin negative. She was started on IV furosemide 40 mg, with first dose given in ER. She was also found to have UTI, and started on antibiotic therapy. At time of consult, patient just transferred to ER. Not yet on our telemetry monitors. She notes frequent urination since dose of lasix and feels her SOB has already improved with ambulation to restroom. She is wearing supplemental O2. she denies current chest pain. no dizziness or lightheadedness. No fever or chills. she reports dry cough x 3 days as well. Mild edema noted this morning seems improved per patient. Allergies Allergy/AdvReac Type Severity Reaction Status Date / Time hydrocodone Allergy Mild UNK Verified 12/26/20 08:29 milk Allergy Unknown Unknown Verified 12/26/20 08:29 pine nut Allergy Unknown Unknown Verified 12/26/20 11:34 Home Medications Medication Instructions Recorded Confirmed Type metformin 1,000 mg tablet 1,000 mg PO BIDM #0 06/30/09 12/26/20 History gabapentin 300 mg capsule 300 mg PO TID 02/06/18 12/26/20 History (Neurontin) atorvastatin 80 mg tablet (Lipitor) 80 mg PO QAM 03/29/18 12/26/20 History famotidine 20 mg tablet (Pepcid) 20 mg PO BID 12/26/19 12/26/20 History oxybutynin chloride 5 mg tablet 5 mg PO DAILY 12/26/19 12/26/20 History linagliptin 5 mg tablet (Tradjenta) 5 mg PO QAM 02/28/20 12/26/20 History nitroglycerin 0.4 mg sublingual 0.4 mg SUBLINGUAL UD PRN 02/28/20 12/26/20 History tablet (Nitrostat) sertraline 100 mg tablet (Zoloft) 100 mg PO QAM 02/28/20 12/26/20 History ticagrelor 90 mg tablet (Brilinta) 90 mg PO BID #60 tab 03/02/20 12/26/20 Rx lisinopril 5 mg tablet (Zestril) 5 mg PO BID #60 tab 05/06/20 12/26/20 Rx aspirin 81 mg tablet,delayed 81 mg PO QAM 12/26/20 12/26/20 History release (Aspirin Low Dose) metoprolol succinate 25 mg 25 mg PO BID 12/26/20 12/26/20 History tablet,extended release 24 hr (Toprol XL) pantoprazole 20 mg tablet,delayed 20 mg PO DAILY 12/26/20 12/26/20 History release (Protonix) Patient History Medical History (Updated 12/26/20 @ 13:35 by Carole Alejo PA-C) Anemia Arthritis CAD (coronary artery disease) Depression Diabetes HTN (hypertension) Surgical History (Updated 12/26/20 @ 12:27 by Prashant Dinh MD) No pertinent past surgical history S/P arterial stent Family History Other Deep vein thrombosis Social History Smoking Status: Former smoker Second Hand Exposure: No; Hx Alcohol Use: Yes Alcohol type: other Hx Substance Use: No Preferred Language: Greek Communication Ability: Effective Visual Impairment: No Limitations Hearing Ability: Normal Blow Mold Technician Required: No Beliefs That Will Affect Care: None marital status: Current Living Situation: Spouse Current Living Situation Comment: The patient states that she lives with her child and their fianc. current occupational status: unemployed How many Children do You have: 3 Other Information That Helps Us Care for You: No Feels Safe at Home: Yes Safety Concerns: Feels Safe At This Time Assistive Devices: Cane Review of Systems Review of Systems: All systems reviewed & are unremarkable except as noted in HPI & below Physical Exam Constitutional: WD/WN, vitals as above Eyes: PERRL, conjunctivae normal, anicteric sclerae Neck: trachea midline, no thyromegaly Respiratory: normal respiratory effort (while resting in bed) Auscultation: + diminished lung sounds (bases bilaterally with faint rales) and + rales Cardiovascular: Rate/Rhythm: regular rate and regular rhythm Heart Sounds: normal S1 and normal S2; no murmur Palpation: normal PMI Vessels: no JVD Extremities: no calf tenderness, no pedal edema and no edema Gastrointestinal (Abdomen): normal bowel sounds, soft, nontender, no hepatosplenomegaly Musculoskeletal: no cyanosis or clubbing, extremities motor strength 5/5 Skin: no rashes, warm and dry Neurologic: PERRL, EOMI, accommodation nl, no face palsy, no dysarthria Psychiatric: A+Ox3, euthymic affect Results & Data ([facility]) Vital Signs (Past 12 Hours) Vital Signs Temp Pulse Pulse Resp BP Pulse Ox 12/26/20 10:30 89 20 159/91 H 98 12/26/20 10:00 86 22 142/95 H 96 12/26/20 09:30 89 22 163/99 H 12/26/20 09:16 92 H 22 138/82 96 12/26/20 08:49 89 20 95 12/26/20 08:19 83 L 12/26/20 08:17 83 L 12/26/20 08:05 36.7 C 89 32 H 151/97 H 83 L 12/26/20 07:44 93 H 24 151/97 H 97 Laboratory Results 12/26/20 12/26/20 12/26/20 Range/Units 08:49 08:49 08:49 WBC 5.84 (4.8-10.8) K/uL RBC 3.33 L (4.2-5.4) M/uL Hgb 9.6 L (12.0-16.0) g/dL Hct 30.3 L (37-47) % MCV 91.0 (80-100) fL MCH 28.8 (25-34) pg MCHC 31.7 L (32-36) g/dL RDW Std Deviation 50.1 H (36.4-46.3) fL RDW Coeff of Ronaldo 15.0 H (11.5-14.5) % Plt Count 206 (130-400) K/uL MPV 10.1 (7.4-10.4) fL Immature Gran % (Auto) 0.5 % Neut % (Auto) 81.9 % Lymph % (Auto) 12.7 % [place] % (Auto) 3.6 % Eos % (Auto) 1.0 % Baso % (Auto) 0.3 % Neut # (Auto) 4.78 (1.4-6.5) K/uL Lymph # (Auto) 0.74 L (1.2-3.4) K/uL [place] # (Auto) 0.21 (0.11-0.59) K/uL Eos # (Auto) 0.06 (0-0.5) K/uL Baso # (Auto) 0.02 (0-0.2) K/uL Immature Gran # (Auto) 0.03 H (0.00-0.02) K/uL PT 10.4 (9.0-12.0) Seconds INR 1.0 (0.9-1.1) APTT 24.2 (21.0-31.0) Seconds PTT Ratio 0.9 Sodium 140 (136-145) mmol/L Potassium 4.2 (3.5-5.1) mmol/L Chloride 108 H (98-107) mmol/L Carbon Dioxide 25 (21-32) mmol/L Anion Gap 6.0 (3-11) BUN 18 (7-18) mg/dl Creatinine 0.91 (0.6-1.2) mg/dl Est Cr Clr Drug Dosing 71.5 ml/min Est GFR ( Amer) 77.8 ml/min Est GFR (Non-Af Amer) 67.1 ml/min BUN/Creatinine Ratio 19.9 (10-20) Glucose 214 H (70-99) mg/dl Calcium 8.5 (8.5-10.1) mg/dl Total Bilirubin 0.4 (0.2-1) mg/dl AST 9 L (15-37) U/L ALT 7 L (12-78) U/L Alkaline Phosphatase 79 (45-117) U/L Troponin I < 0.015 (0-0.045) ng/ml NT-Pro-B Natriuret Pep 9980 H (0-900) pg/ml Total Protein 7.0 (6.4-8.2) gm/dl Albumin 2.8 L (3.4-5.0) gm/dl Globulin 4.2 H (2.5-4.0) gm/dl Albumin/Globulin Ratio 0.7 L (0.9-2) Urine Color Urine Appearance (Clear) Urine pH (4.5-7.5) Ur Specific [place] (1.000-1.030) Urine Protein (Negative) Urine Glucose (UA) (Negative) Urine Ketones (Negative) Urine Blood (Negative) Urine Nitrite (Negative) Urine Bilirubin (Negative) Urine Urobilinogen (Negative) Ur Leukocyte Esterase (Negative) Urine WBC (Auto) (0-5) /hpf Urine RBC (Auto) (0-4) /hpf U Hyaline Cast (Auto) (0-5) /lpf U Epithel Cells (Auto) (0-5) /lpf Urine Bacteria (Auto) (Negative) COVID-19 Eval Order SARS-CoV-2 (PCR) (Negative) 12/26/20 12/26/20 12/26/20 Range/Units 08:35 08:35 08:35 WBC (4.8-10.8) K/uL RBC (4.2-5.4) M/uL Hgb (12.0-16.0) g/dL Hct (37-47) % MCV (80-100) fL MCH (25-34) pg MCHC (32-36) g/dL RDW Std Deviation (36.4-46.3) fL RDW Coeff of Ronaldo (11.5-14.5) % Plt Count (130-400) K/uL MPV (7.4-10.4) fL Immature Gran % (Auto) % Neut % (Auto) % Lymph % (Auto) % [place] % (Auto) % Eos % (Auto) % Baso % (Auto) % Neut # (Auto) (1.4-6.5) K/uL Lymph # (Auto) (1.2-3.4) K/uL [place] # (Auto) (0.11-0.59) K/uL Eos # (Auto) (0-0.5) K/uL Baso # (Auto) (0-0.2) K/uL Immature Gran # (Auto) (0.00-0.02) K/uL PT (9.0-12.0) Seconds INR (0.9-1.1) APTT (21.0-31.0) Seconds PTT Ratio Sodium (136-145) mmol/L Potassium (3.5-5.1) mmol/L Chloride (98-107) mmol/L Carbon Dioxide (21-32) mmol/L Anion Gap (3-11) BUN (7-18) mg/dl Creatinine (0.6-1.2) mg/dl Est Cr Clr Drug Dosing ml/min Est GFR ( Amer) ml/min Est GFR (Non-Af Amer) ml/min BUN/Creatinine Ratio (10-20) Glucose (70-99) mg/dl Calcium (8.5-10.1) mg/dl Total Bilirubin (0.2-1) mg/dl AST (15-37) U/L ALT (12-78) U/L Alkaline Phosphatase (45-117) U/L Troponin I (0-0.045) ng/ml NT-Pro-B Natriuret Pep (0-900) pg/ml Total Protein (6.4-8.2) gm/dl Albumin (3.4-5.0) gm/dl Globulin (2.5-4.0) gm/dl Albumin/Globulin Ratio (0.9-2) Urine Color Yellow Urine Appearance Cloudy A (Clear) Urine pH 6.0 (4.5-7.5) Ur Specific [place] 1.015 (1.000-1.030) Urine Protein 3+ H (Negative) Urine Glucose (UA) Trace H (Negative) Urine Ketones Negative (Negative) Urine Blood 1+ H (Negative) Urine Nitrite Positive A (Negative) Urine Bilirubin Negative (Negative) Urine Urobilinogen Negative (Negative) Ur Leukocyte Esterase Trace H (Negative) Urine WBC (Auto) >30 H (0-5) /hpf Urine RBC (Auto) 5-10 H (0-4) /hpf U Hyaline Cast (Auto) 1-5 (0-5) /lpf U Epithel Cells (Auto) 5-10 H (0-5) /lpf Urine Bacteria (Auto) 4+ H (Negative) COVID-19 Eval Order Covid19 at [facility] SARS-CoV-2 (PCR) NEGATIVE (Negative) Diagnostic Findings EKG on admission - NSR with RBBB, LAFB Chest xray on admission reviewed: IMPRESSION: Moderate interstitial pulmonary edema with small bilateral pleural effusions and associated bibasilar opacities. Radiographic follow-up is recommended to ensure resolution. Prior outpatient echo in Apr 2020: Echocardiogram performed amount and 05/05/2019, severe hypokinesis of the distal anterior wall and apex. Mild concentric left ventricular hypertrophy present otherwise. LVEF mildly reduced 45-to 50%. Mild mitral regurgitation. Compared to prior echo performed February,, there has been interval improvement in the LVEF 35-40, 45 to 50%. Medications Administered Medications metformin 1,000 mg tablet 1,000 mg PO BIDM #0 06/30/09 [History Confirmed 12/26/20] gabapentin 300 mg capsule (Neurontin) 300 mg PO TID 02/06/18 [History Confirmed 12/26/20] atorvastatin 80 mg tablet (Lipitor) 80 mg PO QAM 03/29/18 [History Confirmed 12/26/20] famotidine 20 mg tablet (Pepcid) 20 mg PO BID 12/26/19 [History Confirmed 12/26/20] oxybutynin chloride 5 mg tablet 5 mg PO DAILY 12/26/19 [History Confirmed 12/26/20] linagliptin 5 mg tablet (Tradjenta) 5 mg PO QAM 02/28/20 [History Confirmed 12/26/20] nitroglycerin 0.4 mg sublingual tablet (Nitrostat) 0.4 mg SUBLINGUAL UD PRN 02/28/20 [History Confirmed 12/26/20] sertraline 100 mg tablet (Zoloft) 100 mg PO QAM 02/28/20 [History Confirmed 12/26/20] ticagrelor 90 mg tablet (Brilinta) 90 mg PO BID #60 tab 03/02/20 [Rx Confirmed 12/26/20] lisinopril 5 mg tablet (Zestril) 5 mg PO BID #60 tab 05/06/20 [Rx Confirmed 12/26/20] aspirin 81 mg tablet,delayed release (Aspirin Low Dose) 81 mg PO QAM 12/26/20 [History Confirmed 12/26/20] metoprolol succinate 25 mg tablet,extended release 24 hr (Toprol XL) 25 mg PO BID 12/26/20 [History Confirmed 12/26/20] pantoprazole 20 mg tablet,delayed release (Protonix) 20 mg PO DAILY 12/26/20 [History Confirmed 12/26/20] Home Medications Aspirin (Aspirin 81 Mg Ectab) 81 mg PO QAM [facility] Stop: 01/26/21 08:59 Atorvastatin Calcium (Atorvastatin 40 Mg Tab) 80 mg PO QAM [facility] Stop: 01/26/21 08:59 Dextrose (Dextrose 50% 50 Ml Syringe) 25 - 50 ml IV UD PRN; Protocol PRN Reason: Hypoglycemia Protocol Stop: 01/25/21 11:38 Enoxaparin Sodium (Enoxaparin Inj 40 Mg/0.4 Ml Syr) 40 mg SQ DAILY [facility] Stop: 01/25/21 11:59 Last Admin: 12/26/20 13:01 Dose: 40 mg Documented by: Famotidine (Famotidine 20 Mg Tab) 20 mg PO BID [facility] Stop: 01/25/21 20:59 Gabapentin (Gabapentin 300 Mg Cap) 300 mg PO TID [facility] Stop: 01/25/21 13:59 Last Admin: 12/26/20 13:02 Dose: 300 mg Documented by: Glucagon (Glucagon For Inj 1 Mg Vial) 1 mg SQ UD PRN; Protocol PRN Reason: Hypoglycemia Protocol Stop: 01/25/21 11:38 Glucose (Glucose 10 Tabs/Tube) 4 - 8 tabs PO UD PRN; Protocol PRN Reason: Hypoglycemia Protocol Stop: 01/25/21 11:38 Glucose (Glucose 40% Gel 15 Gm Tube) 15 - 30 gm PO UD PRN; Protocol PRN Reason: Hypoglycemia Protocol Stop: 01/25/21 11:38 Ceftriaxone Sodium 2,000 mg/ (Dextrose) 70 mls @ 140 mls/hr IV Q24H [facility]; Protocol Stop: 01/01/21 08:59 Furosemide 40 mg/ Syringe 4 mls @ 4 mls/min IV DAILY [facility] Stop: 01/26/21 08:59 Insulin Aspart (Insulin Aspart 100 Units/Ml 3 Ml Pen) 0 units SC ACHS [facility] Stop: 01/25/21 11:59 Last Admin: 12/26/20 13:03 Dose: 4 units Documented by: Lisinopril (Lisinopril 5 Mg Tab) 5 mg PO BID [facility] Stop: 01/25/21 20:59 Metoprolol Succinate (Metoprolol Succ 25mg Ext Rel Tab) 25 mg PO BID [facility] Stop: 01/25/21 20:59 Miscellaneous (Carbohydrates For Hypoglycemia ) 15 - 30 gm PO UD PRN PRN Reason: Hypoglycemia Protocol Stop: 01/25/21 11:38 Nitroglycerin (Nitroglycerin Sl 0.4 Mg/Tab Tab) 0.4 mg SL UD PRN PRN Reason: Chest Pain Stop: 01/25/21 11:38 Oxybutynin Chloride (Oxybutynin Chloride 5 Mg Tab) 5 mg PO DAILY [facility] Stop: 01/26/21 08:59 Pantoprazole Sodium (Pantoprazole 40 Mg Tab) 40 mg PO DAILY [facility] Stop: 01/26/21 08:59 Sertraline HCl (Sertraline Hcl 100 Mg Tablet) 100 mg PO QAM [facility] Stop: 01/26/21 08:59 Ticagrelor (Ticagrelor 90 Mg Tab) 90 mg PO BID [facility] Stop: 01/25/21 20:59
[2020-12-26] MEDS ORDERED: GLUCOSE 10 TABS/TUBE PO PRN (11:39)
[2020-12-26] MEDS ORDERED: DEXTROSE 50% 50 ML SYRINGE IV PRN (11:39)
[2020-12-26] MEDS ORDERED: NITROGLYCERIN SL 0.4 MG/TAB TAB SL PRN (11:39)
[2020-12-26] MEDS ORDERED: CARBOHYDRATES FOR HYPOGLYCEMIA PO PRN (11:39)
[2020-12-26] MEDS ORDERED: GLUCAGON FOR INJ 1 MG VIAL SQ PRN (11:39)
[2020-12-26] MEDS ORDERED: GLUCOSE 40% GEL 15 GM TUBE PO PRN (11:39)
[2020-12-26] MEDS: ENOXAPARIN INJ 40 MG/0.4 ML SYR SQ SCH (13:01)
[2020-12-26] MEDS: GABAPENTIN 300 MG CAP PO SCH ×2 (13:02→21:53)
[2020-12-26] MEDS: INSULIN ASPART 100 UNITS/ML 3 ML PEN SC SCH ×3 (13:03→21:52)
[2020-12-26] MEDS: FUROSEMIDE 40 MG in SYRINGE 0 ML IV SCH (16:25)
--- NOTE | 2020-12-26 16:40 | Electrocardiogram Report ---
Test Reason : Blood Pressure : / mmHG Vent. Rate : 098 BPM Atrial Rate : 098 BPM P-R Int : 116 ms QRS Dur : 128 ms QT Int : 408 ms P-R-T Axes : 020 -70 -08 degrees QTc Int : 520 ms Sinus rhythm with intermittent right undle branch block Left anterior fascicular block Bifascicular block Abnormal ECG When compared with ECG of 06-MAY-2020 09:45, Right bundle branch block is now intermittent Confirmed by Juan Francisco Munroe ([id number]) on 12/26/2020 4:40:11 PM Referred By: REFERRED SELF Confirmed By:Immanuel Munroe
[2020-12-26] MEDS ORDERED: PNEUMOCOCCAL Polysaccharide Vaccine 25mcg/0.5mL vial/Syr IM ONE (18:00)
[2020-12-26] MEDS: FAMOTIDINE 20 MG TAB PO SCH (21:52)
[2020-12-26] MEDS: TICAGRELOR 90 MG TAB PO SCH (21:53)
[2020-12-26] MEDS: lisinopril 5 MG TAB PO SCH (21:53)
[2020-12-26] MEDS: METOPROLOL SUCC 25MG EXT REL TAB PO SCH (21:53)
[2020-12-27 07:23] LABS: Basophils # (auto) 0.01 K/uL (0-0.2); Basophils % (auto) 0.2 %; Eosinophils % (auto) 1.8 %; Hemoglobin 9.7 g/dL (12.0-16.0); Immature Granulocytes # (auto) 0.01 K/uL (0.00-0.02); Immature Granulocytes % (auto) 0.2 %; Lymphocytes # (auto) 1.19 K/uL (1.2-3.4); Lymphocytes % (auto) 21.8 %; Mean Corpuscular Hemoglobin 29.2 pg (25-34); Mean Corpuscular Hgb Conc 32.3 g/dL (32-36); Mean Corpuscular Volume 90.4 fL (80-100); Mean Platelet Volume 9.8 fL (7.4-10.4); Monocytes % (auto) 5.5 %; Neutrophils # (auto) 3.86 K/uL (1.4-6.5); Neutrophils % (auto) 70.5 %; Platelet Count 182 K/uL (130-400); RDW Coefficient of Variation 14.9 % (11.5-14.5); RDW Standard Deviation 48.8 fL (36.4-46.3); Red Blood Count 3.32 M/uL (4.2-5.4); White Blood Count 5.47 K/uL (4.8-10.8)
[2020-12-27 07:51] LABS: Albumin Globulin Ratio 0.6 (0.9-2); Albumin Level 2.7 gm/dl (3.4-5.0); BUN Creatinine Ratio 21.2 (10-20); Bilirubin,Total 0.6 mg/dl (0.2-1); Calcium 8.8 mg/dl (8.5-10.1); Creatinine Clr Calc Pharmacy 66.2 ml/min; Est GFR (African American) 78.9 ml/min; Globulin 4.2 gm/dl (2.5-4.0); Magnesium 1.6 mg/dl (1.8-2.4); Potassium 3.6 mmol/L (3.5-5.1); Total Protein 6.9 gm/dl (6.4-8.2)
[2020-12-27] MEDS: INSULIN ASPART 100 UNITS/ML 3 ML PEN SC SCH ×4 (08:19→21:07)
[2020-12-27] MEDS: ASPIRIN 81 MG ECTAB PO SCH (08:22)
[2020-12-27] MEDS: ATORVASTATIN 40 MG TAB PO SCH (08:23)
[2020-12-27] MEDS: ENOXAPARIN INJ 40 MG/0.4 ML SYR SQ SCH (08:24)
[2020-12-27] MEDS: FAMOTIDINE 20 MG TAB PO SCH ×2 (08:25→21:08)
[2020-12-27] MEDS: FUROSEMIDE 40 MG in SYRINGE 0 ML IV SCH ×2 (08:25→17:45)
[2020-12-27] MEDS: lisinopril 5 MG TAB PO SCH ×2 (08:26→21:09)
[2020-12-27] MEDS: GABAPENTIN 300 MG CAP PO SCH ×3 (08:26→21:08)
[2020-12-27] MEDS: METOPROLOL SUCC 25MG EXT REL TAB PO SCH ×2 (08:27→21:08)
[2020-12-27] MEDS: TICAGRELOR 90 MG TAB PO SCH ×2 (08:27→21:08)
[2020-12-27] MEDS: PANTOprazole 40 MG TAB PO SCH (08:27)
[2020-12-27] MEDS: OXYBUTYNIN CHLORIDE 5 MG TAB PO SCH (08:27)
[2020-12-27] MEDS: SERTRALINE HCL 100 MG TABLET PO SCH (08:27)
--- NOTE | 2020-12-27 08:32 | XRay Report ---
XR chest 1V portable CLINICAL HISTORY: follow up COMPARISON STUDY: Chest radiograph December 26, 2020. FINDINGS: Lung volumes are normal. There is no pneumothorax. Small to moderate left and small right p leural effusions have slightly increased. There is persistent pulmonary edema, slightly improved sinc e prior exam. Cardiomediastinal silhouette is stable. IMPRESSION: 1. Persistent pulmonary edema, minimally improved since prior exam. 2. Small to moderate left and small right pleural effusions which have slightly increased. ACT 112: Negative or not required by law. Electronically signed by: Kevyn Duarte M.D. 12/27/2020 8:31 AM
[2020-12-27] MEDS: cefTRIAXone SODIUM 2,000 MG in DEXTROSE 5% 50 ML IV SCH (08:54)
[2020-12-27] MEDS ORDERED: FUROSEMIDE 40 MG/4 ML VIAL IV SCH (09:00)
[2020-12-27] MEDS ORDERED: FUROSEMIDE 40 MG in SYRINGE 0 ML IV SCH (09:00)
[2020-12-27] MEDS: MAGNESIUM OXIDE 400 MG TAB PO SCH (10:40)
[2020-12-27] MEDS: SPIRONOLACTONE 12.5 MG TAB PO SCH (10:40)
--- NOTE | 2020-12-27 11:01 | Cardiology Progress Note ---
Date of Service December 27, 2020 Assessment & Plan (1) Acute on chronic systolic HF (heart failure): (2) Pulmonary edema: (3) UTI (urinary tract infection): (4) Ischemic cardiomyopathy: Plan: Patient admitted after 3 days of worsening SOB associated with weight gain, edema, and pulm congestion noted on xray with b/l pleural effusions, consistent with acute on chronic systolic HF exacerbation. Symptoms improving with diuresis over the last 24 hours. Weight trended down and nearing baseline. Chest xray with mild improvement, but persistent pulm edema noted. continue furosemide 40 mg IV BID today Spironolactone 12.5 mg daily added Magnesium added. Repeat BMP and magnesium level tomorrow. Moderate decline in LVEF noted, previously 45%, now 30-35%. Continue metoprolol succinate, lisinopril. Spironolactone added today. Will start authorization for Entresto and likely transition as outpatient. Will likely need torsemide on discharge Continue all other medications including ASA, Brilinta, atorvastatin UTI treatment per hospitalist. Case discussed with Dr. Bullock. Will follow. Admission and Anticipated Discharge Date Admission Date: December 26, 2020 Supervising Physician Co-Signing Physician Notes Patient seen and examined at the bedside. Feeling better today. Negative fluid balance overnight. Renal function remained stable. Echocardiogram demonstrating decline in LV systolic function. Patient reports orthopnea without paroxysmal nocturnal dyspnea. Telemetry reveals sinus rhythm. PE: VSS. Gen: NAD, AAOx3. Heart: Regular rhythm, normal S1-S2. Pulm: Diminished breath sounds at the bases bilateral. + Bilateral rales. Ext: Trace to mild bilateral pedal and ankle edema. A/P: Agree with above PA-C history, physical exam, assessment and plan. Continue Lasix 40 mg IV twice daily. Add Aldactone. Follow daily weight, fluid balance, GFR, and electrolytes.Continue aspirin, ticagrelor, statin, beta- erickson, and ERA inhibitor as previously ordered. Submit authorization for transition of ERA inhibitor to Entresto. Subjective Patient resting in bed comfortably. Weight this morning was back to her 'baseline' according to the patient. She noted aggressive urination last night. SOB improved and nearly at baseline. Cough also improved. Slept well. No orthopnea, PND or edema. No fever or chills. No chest pain. Tolerating medications. Review of Systems Review of Systems: All systems reviewed & are unremarkable except as noted in HPI & below Physical Exam Constitutional: WD/WN, vitals as above Eyes: PERRL, conjunctivae normal, anicteric sclerae Neck: trachea midline, no thyromegaly Respiratory: normal respiratory effort (while resting in bed) Auscultation: + diminished lung sounds (bases bilaterally with faint rales) and + rales Cardiovascular: Rate/Rhythm: regular rate and regular rhythm Heart Sounds: normal S1 and normal S2; no murmur Palpation: normal PMI Vessels: no JVD Extremities: no calf tenderness, no pedal edema and no edema Gastrointestinal (Abdomen): normal bowel sounds, soft, nontender, no hepatosplenomegaly Musculoskeletal: no cyanosis or clubbing, extremities motor strength 5/5 Skin: no rashes, warm and dry Neurologic: PERRL, EOMI, accommodation nl, no face palsy, no dysarthria Psychiatric: A+Ox3, euthymic affect Results & Data ([facility]) Vital Signs (Past 12 Hours) Vital Signs Temp Pulse Resp BP Pulse Ox 12/27/20 07:50 36.6 C 71 18 146/63 H 92 12/27/20 04:09 36.8 C 68 18 164/80 H 95 12/26/20 23:45 36.7 C 73 18 136/75 91 Laboratory Results 12/27/20 12/27/20 12/27/20 Range/Units 07:38 07:11 07:11 WBC 5.47 (4.8-10.8) K/uL RBC 3.32 L (4.2-5.4) M/uL Hgb 9.7 L (12.0-16.0) g/dL Hct 30.0 L (37-47) % MCV 90.4 (80-100) fL MCH 29.2 (25-34) pg MCHC 32.3 (32-36) g/dL RDW Std Deviation 48.8 H (36.4-46.3) fL RDW Coeff of Ronaldo 14.9 H (11.5-14.5) % Plt Count 182 (130-400) K/uL MPV 9.8 (7.4-10.4) fL Immature Gran % (Auto) 0.2 % Neut % (Auto) 70.5 % Lymph % (Auto) 21.8 % [place] % (Auto) 5.5 % Eos % (Auto) 1.8 % Baso % (Auto) 0.2 % Neut # (Auto) 3.86 (1.4-6.5) K/uL Lymph # (Auto) 1.19 L (1.2-3.4) K/uL [place] # (Auto) 0.30 (0.11-0.59) K/uL Eos # (Auto) 0.10 (0-0.5) K/uL Baso # (Auto) 0.01 (0-0.2) K/uL Immature Gran # (Auto) 0.01 (0.00-0.02) K/uL Sodium 140 (136-145) mmol/L Potassium 3.6 (3.5-5.1) mmol/L Chloride 105 (98-107) mmol/L Carbon Dioxide 28 (21-32) mmol/L Anion Gap 7.0 (3-11) BUN 19 H (7-18) mg/dl Creatinine 0.90 (0.6-1.2) mg/dl Est Cr Clr Drug Dosing 66.2 ml/min Est GFR ( Amer) 78.9 ml/min Est GFR (Non-Af Amer) 68.0 ml/min BUN/Creatinine Ratio 21.2 H (10-20) Glucose 136 H (70-99) mg/dl POC Glucose 133 H (70-99) mg/dl Calcium 8.8 (8.5-10.1) mg/dl Magnesium 1.6 L (1.8-2.4) mg/dl Total Bilirubin 0.6 (0.2-1) mg/dl AST 13 L (15-37) U/L ALT 13 (12-78) U/L Alkaline Phosphatase 76 (45-117) U/L Total Protein 6.9 (6.4-8.2) gm/dl Albumin 2.7 L (3.4-5.0) gm/dl Globulin 4.2 H (2.5-4.0) gm/dl Albumin/Globulin Ratio 0.6 L (0.9-2) 12/26/20 12/26/20 12/26/20 Range/Units 20:59 16:20 11:44 WBC (4.8-10.8) K/uL RBC (4.2-5.4) M/uL Hgb (12.0-16.0) g/dL Hct (37-47) % MCV (80-100) fL MCH (25-34) pg MCHC (32-36) g/dL RDW Std Deviation (36.4-46.3) fL RDW Coeff of Ronaldo (11.5-14.5) % Plt Count (130-400) K/uL MPV (7.4-10.4) fL Immature Gran % (Auto) % Neut % (Auto) % Lymph % (Auto) % [place] % (Auto) % Eos % (Auto) % Baso % (Auto) % Neut # (Auto) (1.4-6.5) K/uL Lymph # (Auto) (1.2-3.4) K/uL [place] # (Auto) (0.11-0.59) K/uL Eos # (Auto) (0-0.5) K/uL Baso # (Auto) (0-0.2) K/uL Immature Gran # (Auto) (0.00-0.02) K/uL Sodium (136-145) mmol/L Potassium (3.5-5.1) mmol/L Chloride (98-107) mmol/L Carbon Dioxide (21-32) mmol/L Anion Gap (3-11) BUN (7-18) mg/dl Creatinine (0.6-1.2) mg/dl Est Cr Clr Drug Dosing ml/min Est GFR ( Amer) ml/min Est GFR (Non-Af Amer) ml/min BUN/Creatinine Ratio (10-20) Glucose (70-99) mg/dl POC Glucose 106 H 117 H 146 H (70-99) mg/dl Calcium (8.5-10.1) mg/dl Magnesium (1.8-2.4) mg/dl Total Bilirubin (0.2-1) mg/dl AST (15-37) U/L ALT (12-78) U/L Alkaline Phosphatase (45-117) U/L Total Protein (6.4-8.2) gm/dl Albumin (3.4-5.0) gm/dl Globulin (2.5-4.0) gm/dl Albumin/Globulin Ratio (0.9-2) Diagnostic Findings Telemetry reviewed - NSR with conduction delay. No arrhythmias Repeat chest xray - completed this morning IMPRESSION: 1. Persistent pulmonary edema, minimally improved since prior exam. 2. Small to moderate left and small right pleural effusions which have slightly increased. Echo report reviewed dated 12/26/20: Compared to prior study in Apr 2020, there has been an interval decline in LV systolic function. LV systolic function is moderate to severely reduced EF 30-35% Severe hypokinesis of the apical anterior wall, mid anteroseptum, apical septum, and apical lateral kovacs. Akinesis of the apical cap. Remaining LV myocardial wall segments are mildly hypokinetic. No significant valvular pathology. Medications Administered Current Inpatient Medications Aspirin (Aspirin 81 Mg Ectab) 81 mg PO QAM [facility] Stop: 01/26/21 08:59 Last Admin: 12/27/20 08:22 Dose: 81 mg Documented by: Atorvastatin Calcium (Atorvastatin 40 Mg Tab) 80 mg PO QAM [facility] Stop: 01/26/21 08:59 Last Admin: 12/27/20 08:23 Dose: 80 mg Documented by: Dextrose (Dextrose 50% 50 Ml Syringe) 25 - 50 ml IV UD PRN; Protocol PRN Reason: Hypoglycemia Protocol Stop: 01/25/21 11:38 Enoxaparin Sodium (Enoxaparin Inj 40 Mg/0.4 Ml Syr) 40 mg SQ DAILY [facility] Stop: 01/25/21 11:59 Last Admin: 12/27/20 08:24 Dose: 40 mg Documented by: Famotidine (Famotidine 20 Mg Tab) 20 mg PO BID [facility] Stop: 01/25/21 20:59 Last Admin: 12/27/20 08:25 Dose: 20 mg Documented by: Gabapentin (Gabapentin 300 Mg Cap) 300 mg PO TID [facility] Stop: 01/25/21 13:59 Last Admin: 12/27/20 08:26 Dose: 300 mg Documented by: Glucagon (Glucagon For Inj 1 Mg Vial) 1 mg SQ UD PRN; Protocol PRN Reason: Hypoglycemia Protocol Stop: 01/25/21 11:38 Glucose (Glucose 10 Tabs/Tube) 4 - 8 tabs PO UD PRN; Protocol PRN Reason: Hypoglycemia Protocol Stop: 01/25/21 11:38 Glucose (Glucose 40% Gel 15 Gm Tube) 15 - 30 gm PO UD PRN; Protocol PRN Reason: Hypoglycemia Protocol Stop: 01/25/21 11:38 Ceftriaxone Sodium 2,000 mg/ (Dextrose) 70 mls @ 140 mls/hr IV Q24H [facility]; Prot ocol Stop: 01/01/21 08:59 Last Infusion: 12/27/20 09:37 Dose: Infused Documented by: Furosemide 40 mg/ Syringe 4 mls @ 4 mls/min IV BID [facility] Stop: 01/25/21 16:59 Last Admin: 12/27/20 08:25 Dose: 4 mls/min Documented by: Insulin Aspart (Insulin Aspart 100 Units/Ml 3 Ml Pen) 0 units SC ACHS [facility] Stop: 01/25/21 11:59 Last Admin: 12/27/20 08:19 Dose: 3 units Documented by: Lisinopril (Lisinopril 5 Mg Tab) 5 mg PO BID [facility] Stop: 01/25/21 20:59 Last Admin: 12/27/20 08:26 Dose: 5 mg Documented by: Magnesium Oxide (Magnesium Oxide 400 Mg Tab) 400 mg PO QAM [facility] Stop: 01/26/21 09:14 Last Admin: 12/27/20 10:40 Dose: 400 mg Documented by: Metoprolol Succinate (Metoprolol Succ 25mg Ext Rel Tab) 25 mg PO BID [facility] Stop: 01/25/21 20:59 Last Admin: 12/27/20 08:27 Dose: 25 mg Documented by: Miscellaneous (Carbohydrates For Hypoglycemia ) 15 - 30 gm PO UD PRN PRN Reason: Hypoglycemia Protocol Stop: 01/25/21 11:38 Nitroglycerin (Nitroglycerin Sl 0.4 Mg/Tab Tab) 0.4 mg SL UD PRN PRN Reason: Chest Pain Stop: 01/25/21 11:38 Oxybutynin Chloride (Oxybutynin Chloride 5 Mg Tab) 5 mg PO DAILY [facility] Stop: 01/26/21 08:59 Last Admin: 12/27/20 08:27 Dose: 5 mg Documented by: Pantoprazole Sodium (Pantoprazole 40 Mg Tab) 40 mg PO DAILY [facility] Stop: 01/26/21 08:59 Last Admin: 12/27/20 08:27 Dose: 40 mg Documented by: Sertraline HCl (Sertraline Hcl 100 Mg Tablet) 100 mg PO QAM [facility] Stop: 01/26/21 08:59 Last Admin: 12/27/20 08:27 Dose: 100 mg Documented by: Spironolactone (Spironolactone 12.5 Mg Tab) 12.5 mg PO DAILY [facility] Stop: 01/26/21 09:14 Last Admin: 12/27/20 10:40 Dose: 12.5 mg Documented by: Ticagrelor (Ticagrelor 90 Mg Tab) 90 mg PO BID [facility] Stop: 01/25/21 20:59 Last Admin: 12/27/20 08:27 Dose: 90 mg Documented by:
[2020-12-27] MEDS ORDERED: Nursing to Pharmacy Communication SCH (14:30)
--- NOTE | 2020-12-27 15:38 | Hospitalist Progress Note ---
Date of Service December 27, 2020 Assessment & Plan (1) Acute decompensated heart failure: (2) Hypertensive urgency: (3) Hypoxia: (4) UTI (urinary tract infection): (5) Anemia: Plan: SOB with Hypoxia: -2/2 ADHF - has hx of HFmrEF -Echo from 04/2020: EF of 45-50%, LVH with severe hypokineisis of distal anterior wall and apex -CXR: Moderate interstitial pulmonary edema with small bilateral pleural effusions and associated bibasilar opacities. -Echo with EF of 30 to 35% and severe hypokinesis. Appreciate cardiology input. Continue IV Lasix 40 mg twice daily. Continue with spironolactone 12.5 mg daily. Continue monitor ins and outs along with daily weights. HTN urgency: -will continue home Bp meds -monitor pt on tele UTI: uncomplicated -UCx sent Continue ceftriaxone. Cultures are growing negative bacilli. Blood cultures are negative thus far. Chronic hx of Anemia: -baseline hgb: ~10 -iron study from clinic: high ferritin and low normal Iron -pt denied any bloody or dark stool - trend hgb CAD s/p DORIAN stent: -c/w Brilinta, BB, aspirin & statin DMII: -hold home PO meds -ISS HLD/GERD/Anxiety/Depression: -continue home meds Diet:Cardiac and DMII DVT PPx:Lovenox Code Status:Full Code Emergency Contact:Florentin [phone] () Admission and Anticipated Discharge Date Admission Date: December 26, 2020 Subjective Patient is doing okay this morning. Her shortness of breath is improved. Was on 2 L of nasal cannula but currently weaned down to room air. Denies any chest pain, abdominal pain, diarrhea or dysuria. Rest of the review of system is negative. Review of Systems Review of Systems: All systems reviewed & are unremarkable except as noted in HPI & below Physical Exam Physical Exam: General: A&Ox3 HENT: NCAT, MMM, EOMI Eyes: PERRLA Neck: Supple, normal range of motion CVS: normal rate and rhythm Resp: b/l decreased breath sounds Abdomen: Soft, ND/NT, +BS Extremities: Absence of any edema Neuro: face symmetric, no gross focal deficits appreciated Skin: warm and dry MSK: no joint swelling/erythema Results & Data Results & Data ([place]) Vital Signs (Past 12 Hours) Vital Signs Temp Pulse Pulse Resp BP BP Pulse Ox 12/27/20 15:18 36.5 C 70 19 135/77 93 12/27/20 11:46 36.6 C 73 17 133/69 95 12/27/20 11:06 68 12/27/20 07:50 36.6 C 71 18 146/63 H 92 12/27/20 04:09 36.8 C 68 18 164/80 H 95
[2020-12-28] MEDS: OXYBUTYNIN CHLORIDE 5 MG TAB PO SCH (08:31)
[2020-12-28] MEDS: lisinopril 5 MG TAB PO SCH ×2 (08:31→20:05)
[2020-12-28] MEDS: FUROSEMIDE 40 MG in SYRINGE 0 ML IV SCH (08:31)
[2020-12-28] MEDS: GABAPENTIN 300 MG CAP PO SCH ×3 (08:31→20:04)
[2020-12-28] MEDS: METOPROLOL SUCC 25MG EXT REL TAB PO SCH ×2 (08:31→20:04)
[2020-12-28] MEDS: FAMOTIDINE 20 MG TAB PO SCH ×2 (08:31→20:04)
[2020-12-28] MEDS: PANTOprazole 40 MG TAB PO SCH (08:32)
[2020-12-28] MEDS: SPIRONOLACTONE 12.5 MG TAB PO SCH (08:32)
[2020-12-28] MEDS: MAGNESIUM OXIDE 400 MG TAB PO SCH (08:32)
[2020-12-28] MEDS: TICAGRELOR 90 MG TAB PO SCH ×2 (08:32→20:04)
[2020-12-28] MEDS: ATORVASTATIN 40 MG TAB PO SCH (08:32)
[2020-12-28] MEDS: ASPIRIN 81 MG ECTAB PO SCH (08:32)
[2020-12-28] MEDS: INSULIN ASPART 100 UNITS/ML 3 ML PEN SC SCH ×4 (08:35→20:56)
[2020-12-28] MEDS: ENOXAPARIN INJ 40 MG/0.4 ML SYR SQ SCH (08:37)
[2020-12-28] MEDS: SERTRALINE HCL 100 MG TABLET PO SCH (08:37)
[2020-12-28] MEDS: cefTRIAXone SODIUM 2,000 MG in DEXTROSE 5% 50 ML IV SCH (08:37)
[2020-12-28 09:32] LABS: BUN Creatinine Ratio 21.3 (10-20); Calcium 8.9 mg/dl (8.5-10.1); Creatinine Clr Calc Pharmacy 48.6 ml/min; Est GFR (African American) 55.1 ml/min; Est GFR (Non-African American) 47.6 ml/min; Magnesium 1.8 mg/dl (1.8-2.4); Potassium 4.2 mmol/L (3.5-5.1)
--- NOTE | 2020-12-28 10:41 | Cardiology Progress Note ---
Date of Service December 28, 2020 Assessment & Plan (1) Acute on chronic systolic HF (heart failure): (2) Pulmonary edema: (3) UTI (urinary tract infection): (4) Ischemic cardiomyopathy: Plan: Patient admitted after 3 days of worsening SOB associated with weight gain, edema, and pulm congestion noted on xray with b/l pleural effusions, consistent with acute on chronic systolic HF exacerbation. Symptoms improved with diuresis over the last 48 hours. Weight trended down. SOB at baseline and now resolved. Chest xray with mild improvement, but persistent pulm edema noted. Slight increase in creatinine this morning from 0.9 to 1.2. Discontinue IV furosemide Transition to oral torsemide 10 mg daily with spironolactone 12.5 mg Moderate decline in LVEF noted, previously 45%, now 30-35%. Continue metoprolol succinate, lisinopril. Spironolactone added today. Will start authorization for Entresto and likely transition as outpatient. Continue all other medications including ASA, Brilinta, atorvastatin UTI treatment per hospitalist. 1-2 week cardiology hospital f/u to be arranged. Case discussed with Dr. Bullock. Admission and Anticipated Discharge Date Admission Date: December 26, 2020 Supervising Physician Co-Signing Physician Notes Patient seen and examined at the bedside. Feeling better today. Fluid balance -1 L. Creatinine trending upward. Feeling better from a cardiovascular perspective. Telemetry reveals sinus rhythm. PE: VSS. Gen: NAD, AAOx3. Heart: Regular rhythm, normal S1-S2. Pulm: Diminished breath sounds at the bases bilateral. + Bilateral rales. Ext: Trace to mild bilateral pedal and ankle edema. A/P: Agree with above PA-C history, physical exam, assessment and plan. Transition to oral torsemide. Spironolactone added today. Follow daily weight, fluid balance, GFR, and electrolytes.Continue aspirin, ticagrelor, statin, beta- erickson, and ERA inhibitor as previously ordered. Submit authorization for transition of ERA inhibitor to Entresto. Subjective Patient resting in bed comfortably. Was able to be weaned off oxygen over the last 24 hours. She reports great improvement in her SOB/cough since admission. Symptoms resolved this morning. No chest pain. Tolerating med changes. No dizziness, syncope or near syncope. No orthopnea, PND or edema. Review of Systems Review of Systems: All systems reviewed & are unremarkable except as noted in HPI & below Physical Exam Constitutional: WD/WN, vitals as above Eyes: PERRL, conjunctivae normal, anicteric sclerae Neck: trachea midline, no thyromegaly Respiratory: normal respiratory effort (while resting in bed) Auscultation: + diminished lung sounds (bases bilaterally, otherwise clear); no crackles and no wheezes Cardiovascular: Rate/Rhythm: regular rate and regular rhythm Heart Sounds: normal S1 and normal S2; no murmur Palpation: normal PMI Vessels: no JVD Extremities: no calf tenderness, no pedal edema and no edema Gastrointestinal (Abdomen): normal bowel sounds, soft, nontender, no hepato splenomegaly Musculoskeletal: no cyanosis or clubbing, extremities motor strength 5/5 Skin: no rashes, warm and dry Neurologic: PERRL, EOMI, accommodation nl, no face palsy, no dysarthria Psychiatric: A+Ox3, euthymic affect Results & Data ([facility]) Vital Signs (Past 12 Hours) Vital Signs Temp Pulse Resp BP Pulse Ox 12/28/20 07:30 36.8 C 80 18 149/60 H 100 12/28/20 03:55 36.6 C 67 18 129/70 93 12/28/20 00:11 36.6 C 83 18 156/78 H 94 Laboratory Results 12/28/20 12/28/20 12/27/20 Range/Units 08:50 07:39 20:29 Sodium 138 (136-145) mmol/L Potassium 4.2 D (3.5-5.1) mmol/L Chloride 100 (98-107) mmol/L Carbon Dioxide 32 (21-32) mmol/L Anion Gap 5.0 (3-11) BUN 26 H (7-18) mg/dl Creatinine 1.21 H D (0.6-1.2) mg/dl Est Cr Clr Drug Dosing 48.6 ml/min Est GFR ( Amer) 55.1 ml/min Est GFR (Non-Af Amer) 47.6 ml/min BUN/Creatinine Ratio 21.3 H (10-20) Glucose 265 H (70-99) mg/dl POC Glucose 163 H 135 H (70-99) mg/dl Calcium 8.9 (8.5-10.1) mg/dl Magnesium 1.8 (1.8-2.4) mg/dl 12/27/20 12/27/20 Range/Units 16:03 11:13 Sodium (136-145) mmol/L Potassium (3.5-5.1) mmol/L Chloride (98-107) mmol/L Carbon Dioxide (21-32) mmol/L Anion Gap (3-11) BUN (7-18) mg/dl Creatinine (0.6-1.2) mg/dl Est Cr Clr Drug Dosing ml/min Est GFR ( Amer) ml/min Est GFR (Non-Af Amer) ml/min BUN/Creatinine Ratio (10-20) Glucose (70-99) mg/dl POC Glucose 136 H 162 H (70-99) mg/dl Calcium (8.5-10.1) mg/dl Magnesium (1.8-2.4) mg/dl Diagnostic Findings Telemetry reviewed - NSR, no arrhythmias Medications Administered Current Inpatient Medications Aspirin (Aspirin 81 Mg Ectab) 81 mg PO QAM [facility] Stop: 01/26/21 08:59 Last Admin: 12/28/20 08:32 Dose: 81 mg Documented by: Atorvastatin Calcium (Atorvastatin 40 Mg Tab) 80 mg PO QAM [facility] Stop: 01/26/21 08:59 Last Admin: 12/28/20 08:32 Dose: 80 mg Documented by: Dextrose (Dextrose 50% 50 Ml Syringe) 25 - 50 ml IV UD PRN; Protocol PRN Reason: Hypoglycemia Protocol Stop: 01/25/21 11:38 Enoxaparin Sodium (Enoxaparin Inj 40 Mg/0.4 Ml Syr) 40 mg SQ DAILY [facility] Stop: 01/25/21 11:59 Last Admin: 12/28/20 08:37 Dose: 40 mg Documented by: Famotidine (Famotidine 20 Mg Tab) 20 mg PO BID [facility] Stop: 01/25/21 20:59 Last Admin: 12/28/20 08:31 Dose: 20 mg Documented by: Gabapentin (Gabapentin 300 Mg Cap) 300 mg PO TID [facility] Stop: 01/25/21 13:59 Last Admin: 12/28/20 08:31 Dose: 300 mg Documented by: Glucagon (Glucagon For Inj 1 Mg Vial) 1 mg SQ UD PRN; Protocol PRN Reason: Hypoglycemia Protocol Stop: 01/25/21 11:38 Glucose (Glucose 10 Tabs/Tube) 4 - 8 tabs PO UD PRN; Protocol PRN Reason: Hypoglycemia Protocol Stop: 01/25/21 11:38 Glucose (Glucose 40% Gel 15 Gm Tube) 15 - 30 gm PO UD PRN; Protocol PRN Reason: Hypoglycemia Protocol Stop: 01/25/21 11:38 Ceftriaxone Sodium 2,000 mg/ (Dextrose) 70 mls @ 140 mls/hr IV Q24H [facility]; Protocol Stop: 01/01/21 08:59 Last Infusion: 12/28/20 09:16 Dose: Infused Documented by: Insulin Aspart (Insulin Aspart 100 Units/Ml 3 Ml Pen) 0 units SC ACHS [facility] Stop: 01/25/21 11:59 Last Admin: 12/28/20 08:35 Dose: 4 units Documented by: Lisinopril (Lisinopril 5 Mg Tab) 5 mg PO BID [facility] Stop: 01/25/21 20:59 Last Admin: 12/28/20 08:31 Dose: 5 mg Documented by: Magnesium Oxide (Magnesium Oxide 400 Mg Tab) 400 mg PO QAM [facility] Stop: 01/26/21 09:14 Last Admin: 12/28/20 08:32 Dose: 400 mg Documented by: Metoprolol Succinate (Metoprolol Succ 25mg Ext Rel Tab) 25 mg PO BID [facility] Stop: 01/25/21 20:59 Last Admin: 12/28/20 08:31 Dose: 25 mg Documented by: Miscellaneous (Carbohydrates For Hypoglycemia ) 15 - 30 gm PO UD PRN PRN Reason: Hypoglycemia Protocol Stop: 01/25/21 11:38 Nitroglycerin (Nitroglycerin Sl 0.4 Mg/Tab Tab) 0.4 mg SL UD PRN PRN Reason: Chest Pain Stop: 01/25/21 11:38 Oxybutynin Chloride (Oxybutynin Chloride 5 Mg Tab) 5 mg PO DAILY [facility] Stop: 01/26/21 08:59 Last Admin: 12/28/20 08:31 Dose: 5 mg Documented by: Pantoprazole Sodium (Pantoprazole 40 Mg Tab) 40 mg PO DAILY [facility] Stop: 01/26/21 08:59 Last Admin: 12/28/20 08:32 Dose: 40 mg Documented by: Sertraline HCl (Sertraline Hcl 100 Mg Tablet) 100 mg PO QAM [facility] Stop: 01/26/21 08:59 Last Admin: 12/28/20 08:37 Dose: 100 mg Documented by: Spironolactone (Spironolactone 12.5 Mg Tab) 12.5 mg PO DAILY [facility] Stop: 01/26/21 09:14 Last Admin: 12/28/20 08:32 Dose: 12.5 mg Documented by: Ticagrelor (Ticagrelor 90 Mg Tab) 90 mg PO BID [facility] Stop: 01/25/21 20:59 Last Admin: 12/28/20 08:32 Dose: 90 mg Documented by: Torsemide (Torsemide 10 Mg Tab) 10 mg PO QAM [facility] Stop: 01/28/21 08:59
--- NOTE | 2020-12-28 14:03 | Hospitalist Progress Note ---
Date of Service December 28, 2020 Assessment & Plan (1) Acute decompensated heart failure: (2) Hypertensive urgency: (3) Hypoxia: (4) UTI (urinary tract infection): (5) Anemia: Plan: SOB with Hypoxia: -2/2 ADHF - has hx of HFmrEF -Echo from 04/2020: EF of 45-50%, LVH with severe hypokineisis of distal anterior wall and apex -CXR: Moderate interstitial pulmonary edema with small bilateral pleural effusions and associated bibasilar opacities. -Echo with EF of 30 to 35% and severe hypokinesis. Appreciate cardiology input. Position to torsemide 10 mg daily. Continue with spironolactone 12.5 mg daily. Continue monitor ins and outs along with daily weights. Cardiology would like to keep the patient here today. Likely discharge tomorrow. HTN urgency: -will continue home Bp meds -monitor pt on tele UTI: uncomplicated -UCx sent Cultures are growing Klebsiella. Discontinue ceftriaxone due to resistance, transition to ciprofloxacin today. Chronic hx of Anemia: -baseline hgb: ~10 -iron study from clinic: high ferritin and low normal Iron -pt denied any bloody or dark stool - trend hgb CAD s/p DORIAN stent: -c/w Brilinta, BB, aspirin & statin DMII: -hold home PO meds -ISS HLD/GERD/Anxiety/Depression: -continue home meds Diet:Cardiac and DMII DVT PPx:Lovenox Code Status:Full Code Emergency Contact:Florentin [phone] (). Admission and Anticipated Discharge Date Admission Date: December 26, 2020 Subjective Patient currently on room air. Shortness of breath is significantly, improved adequate urine output. Other review of system is negative. Review of Systems Review of Systems: All systems reviewed & are unremarkable except as noted in HPI & below Physical Exam Physical Exam: General: A&Ox3 HENT: NCAT, MMM, EOMI Eyes: PERRLA Neck: Supple, normal range of motion CVS: normal rate and rhythm Resp: b/l decreased breath sounds Abdomen: Soft, ND/NT, +BS Extremities: Absence of any edema Neuro: face symmetric, no gross focal deficits appreciated Skin: warm and dry MSK: no joint swelling/erythema Results & Data Results & Data ([facility]) Vital Signs (Past 12 Hours) Vital Signs Temp Pulse Resp BP Pulse Ox 10/07/21 11:30 36.8 C 65 18 151/60 H 98 12/28/20 07:30 36.8 C 80 18 149/60 H 100 12/28/20 03:55 36.6 C 67 18 129/70 93
[2020-12-28] MEDS ORDERED: ACETAMINOPHEN 325 MG TAB PO PRN (19:36)
[2020-12-28] MEDS: CIPROFLOXACIN 500 MG TAB PO SCH (20:04)
[2020-12-29] MEDS: lisinopril 5 MG TAB PO SCH (08:53)
[2020-12-29] MEDS: TICAGRELOR 90 MG TAB PO SCH (08:53)
[2020-12-29] MEDS: ATORVASTATIN 40 MG TAB PO SCH (08:53)
[2020-12-29] MEDS: MAGNESIUM OXIDE 400 MG TAB PO SCH (08:54)
[2020-12-29] MEDS: SPIRONOLACTONE 12.5 MG TAB PO SCH (08:54)
[2020-12-29] MEDS: OXYBUTYNIN CHLORIDE 5 MG TAB PO SCH (08:54)
[2020-12-29] MEDS: METOPROLOL SUCC 25MG EXT REL TAB PO SCH (08:56)
[2020-12-29] MEDS: SERTRALINE HCL 100 MG TABLET PO SCH (08:56)
[2020-12-29] MEDS: GABAPENTIN 300 MG CAP PO SCH ×2 (08:56→13:49)
[2020-12-29] MEDS: ASPIRIN 81 MG ECTAB PO SCH (08:56)
[2020-12-29] MEDS: PANTOprazole 40 MG TAB PO SCH (08:56)
[2020-12-29] MEDS: FAMOTIDINE 20 MG TAB PO SCH (08:57)
[2020-12-29] MEDS: INSULIN ASPART 100 UNITS/ML 3 ML PEN SC SCH ×2 (08:57→11:47)
[2020-12-29] MEDS: ENOXAPARIN INJ 40 MG/0.4 ML SYR SQ SCH (08:57)
[2020-12-29] MEDS ORDERED: TORSEMIDE 10 MG TAB PO SCH (09:00)
[2020-12-29 09:28] LABS: BUN Creatinine Ratio 26.8 (10-20); Calcium 8.9 mg/dl (8.5-10.1); Creatinine Clr Calc Pharmacy 40.3 ml/min; Est GFR (African American) 44.3 ml/min; Est GFR (Non-African American) 38.2 ml/min; Magnesium 2.1 mg/dl (1.8-2.4); Potassium 4.3 mmol/L (3.5-5.1)
[2020-12-29] MEDS: CIPROFLOXACIN 500 MG TAB PO SCH (11:47)
--- NOTE | 2020-12-29 11:50 | Cardiology Progress Note ---
Date of Service December 29, 2020 Assessment & Plan (1) Acute on chronic systolic HF (heart failure): (2) Pulmonary edema: (3) UTI (urinary tract infection): (4) Ischemic cardiomyopathy: Plan: Patient admitted after 3 days of worsening SOB associated with weight gain, edema, and pulm congestion noted on xray with b/l pleural effusions, consistent with acute on chronic systolic HF exacerbation. Symptoms improved with diuresis. Weight trended down. SOB at baseline and now resolved. Slight rise in creatinine over the last 2 days. IV diuretics were discontinued. she received torsemide 10 mg this morning and spironolactone 12.5 mg this morning. Will recommend holding diuretics Sat/Friday and blood work on Friday (BMP ordered in [facility]). She will have this done at [facility] lab closest to her home. Moderate decline in LVEF noted, previously 45%, now 30-35%. Continue metoprolol succinate, lisinopril. Spironolactone added today. MTM referral placed as outpatient to start authorization for Entresto and likely transition as outpatient. Continue all other medications including ASA, Brilinta, atorvastatin on discharge. UTI treatment per hospitalist. 1-2 week cardiology hospital f/u to be arranged as well. Stable for discharge. Please instruct patient to hold diuretics over the weekend and labs on Friday. Will then provide further instructions at that time. Patient aware. Case discussed with Dr. Bullock. Admission and Anticipated Discharge Date Admission Date: December 26, 2020 Supervising Physician Co-Signing Physician Notes Patient seen and examined at the bedside. Feeling well from a cardiovascular perspective. Creatinine trending upward to 1.45 today. Received 10 mg of oral torsemide and Aldactone this a.m. Denies lightheadedness, dizziness, or near syncope. No orthopnea, PND, or edema. Denies chest discomfort. Requesting discharge if possible. Telemetry reveals sinus rhythm in the 70s. PE: VSS. Gen: NAD, AAOx3. Heart: Regular rhythm, normal S1-S2. Pulm: Diminished breath sounds at the bases bilateral. + Bilateral rales. Ext: No edema A/P: Agree with above PA-C history, physical exam, assessment and plan. Hold diuretic therapy over the weekend with repeat basic metabolic panel on Friday. Restart torsemide and Aldactone Main if renal function has returned to baseline. Continue aspirin, ticagrelor, statin, beta-erickson, and ERA inhibitor as previously ordered. Transition ERA inhibitor to Entresto as outpatient. Subjective Patient feeling well. Anxious for discharge. No chest pain. SOB improved. No cough. No orthopnea, PND or edema. No fever or chills. Tolerating medications. Mild rise in creatinine again this morning. Denies acute complaints. Review of Systems Review of Systems: All systems reviewed & are unremarkable except as noted in HPI & below Physical Exam Constitutional: WD/WN, vitals as above Eyes: PERRL, conjunctivae normal, anicteric sclerae Neck: trachea midline, no thyromegaly Respiratory: normal respiratory effort (while resting in bed) Auscultation: + diminished lung sounds (bases bilaterally, otherwise clear); no crackles and no wheezes Cardiovascular: Rate/Rhythm: regular rate and regular rhythm Heart Sounds: normal S1 and normal S2; no murmur Palpation: normal PMI Vessels: no JVD Extremities: no calf tenderness, no pedal edema and no edema Gastrointestinal (Abdomen): normal bowel sounds, soft, nontender, no hepatosplenomegaly Musculoskeletal: no cyanosis or clubbing, extremities motor strength 5/5 Skin: no rashes, warm and dry Neurologic: PERRL, EOMI, accommodation nl, no face palsy, no dysarthria Psychiatric: A+Ox3, euthymic affect Results & Data ([facility]) Vital Signs (Past 12 Hours) Vital Signs Temp Pulse Pulse Resp BP Pulse Ox 12/29/20 07:30 36.8 C 84 16 131/78 95 12/29/20 04:19 36.7 C 65 16 107/71 95 12/28/20 23:56 74 Laboratory Results 12/29/20 12/29/20 12/29/20 Range/Units 11:25 08:42 07:44 Sodium 136 (136-145) mmol/L Potassium 4.3 (3.5-5.1) mmol/L Chloride 102 (98-107) mmol/L Carbon Dioxide 30 (21-32) mmol/L Anion Gap 4.0 (3-11) BUN 39 H (7-18) mg/dl Creatinine 1.45 H (0.6-1.2) mg/dl Est Cr Clr Drug Dosing 40.3 ml/min Est GFR ( Amer) 44.3 ml/min Est GFR (Non-Af Amer) 38.2 ml/min BUN/Creatinine Ratio 26.8 H (10-20) Glucose 234 H (70-99) mg/dl POC Glucose 147 H 177 H (70-99) mg/dl Calcium 8.9 (8.5-10.1) mg/dl Magnesium 2.1 (1.8-2.4) mg/dl 12/28/20 12/28/20 Range/Units 20:23 16:13 Sodium (136-145) mmol/L Potassium (3.5-5.1) mmol/L Chloride (98-107) mmol/L Carbon Dioxide (21-32) mmol/L Anion Gap (3-11) BUN (7-18) mg/dl Creatinine (0.6-1.2) mg/dl Est Cr Clr Drug Dosing ml/min Est GFR ( Amer) ml/min Est GFR (Non-Af Amer) ml/min BUN/Creatinine Ratio (10-20) Glucose (70-99) mg/dl POC Glucose 162 H 134 H (70-99) mg/dl Calcium (8.5-10.1) mg/dl Magnesium (1.8-2.4) mg/dl Diagnostic Findings Telemetry reviewed - NSR with occ PAC's, no arrhythmias Medications Administered Current Inpatient Medications Acetaminophen (Acetaminophen 325 Mg Tab) 650 mg PO Q6H PRN PRN Reason: Fever/pain Stop: 01/27/21 19:35 Last Admin: 12/28/20 20:03 Dose: 650 mg Documented by: Aspirin (Aspirin 81 Mg Ectab) [facility] Stop: 01/26/21 08:59 Last Admin: 12/29/20 08:56 Dose: 81 mg Documented by: Atorvastatin Calcium (Atorvastatin 40 Mg Tab) 80 mg PO QAM [facility] Stop: 01/26/21 08:59 Last Admin: 12/29/20 08:53 Dose: 80 mg Documented by: Ciprofloxacin (Ciprofloxacin 500 Mg Tab) 500 mg PO BID [facility] Stop: 01/02/21 20:59 Last Admin: 12/28/20 20:04 Dose: 500 mg Documented by: Dextrose (Dextrose 50% 50 Ml Syringe) 25 - 50 ml IV UD PRN; Protocol PRN Reason: Hypoglycemia Protocol Stop: 01/25/21 11:38 Enoxaparin Sodium (Enoxaparin Inj 40 Mg/0.4 Ml Syr) 40 mg SQ DAILY GLYNN Stop: 01/25/21 11:59 Last Admin: 12/29/20 08:57 Dose: 40 mg Documented by: Famotidine (Famotidine 20 Mg Tab) 20 mg PO BID GLYNN Stop: 01/25/21 20:59 Last Admin: 12/29/20 08:57 Dose: 20 mg Documented by: Gabapentin (Gabapentin 300 Mg Cap) 300 mg PO TID GLYNN Stop: 01/25/21 13:59 Last Admin: 12/29/20 08:56 Dose: 300 mg Documented by: Glucagon (Glucagon For Inj 1 Mg Vial) 1 mg SQ UD PRN; Protocol PRN Reason: Hypoglycemia Protocol Stop: 01/25/21 11:38 Glucose (Glucose 10 Tabs/Tube) 4 - 8 tabs PO UD PRN; Protocol PRN Reason: Hypoglycemia Protocol Stop: 01/25/21 11:38 Glucose (Glucose 40% Gel 15 Gm Tube) 15 - 30 gm PO UD PRN; Protocol PRN Reason: Hypoglycemia Protocol Stop: 01/25/21 11:38 Insulin Aspart (Insulin Aspart 100 Units/Ml 3 Ml Pen) 0 units SC ACHS GLYNN Stop: 01/25/21 11:59 Last Admin: 12/29/20 08:57 Dose: 3 units Documented by: Lisinopril (Lisinopril 5 Mg Tab) 5 mg PO BID GLYNN Stop: 01/25/21 20:59 Last Admin: 12/29/20 08:53 Dose: 5 mg Documented by: Magnesium Oxide (Magnesium Oxide 400 Mg Tab) 400 mg PO QAM GLYNN Stop: 01/26/21 09:14 Last Admin: 12/29/20 08:54 Dose: 400 mg Documented by: Metoprolol Succinate (Metoprolol Succ 25mg Ext Rel Tab) 25 mg PO BID GLYNN Stop: 01/25/21 20:59 Last Admin: 12/29/20 08:56 Dose: 25 mg Documented by: Miscellaneous (Carbohydrates For Hypoglycemia ) 15 - 30 gm PO UD PRN PRN Reason: Hypoglycemia Protocol Stop: 01/25/21 11:38 Nitroglycerin (Nitroglycerin Sl 0.4 Mg/Tab Tab) 0.4 mg SL UD PRN PRN Reason: Chest Pain Stop: 01/25/21 11:38 Oxybutynin Chloride (Oxybutynin Chloride 5 Mg Tab) 5 mg PO DAILY GLYNN Stop: 01/26/21 08:59 Last Admin: 12/29/20 08:54 Dose: 5 mg Documented by: Pantoprazole Sodium (Pantoprazole 40 Mg Tab) 40 mg PO DAILY GLYNN Stop: 01/26/21 08:59 Last Admin: 12/29/20 08:56 Dose: 40 mg Documented by: Sertraline HCl (Sertraline Hcl 100 Mg Tablet) 100 mg PO QAM GLYNN Stop: 01/26/21 08:59 Last Admin: 12/29/20 08:56 Dose: 100 mg Documented by: Spironolactone (Spironolactone 12.5 Mg Tab) 12.5 mg PO DAILY GLYNN Stop: 01/26/21 09:14 Last Admin: 12/29/20 08:54 Dose: 12.5 mg Documented by: Ticagrelor (Ticagrelor 90 Mg Tab) 90 mg PO BID GLYNN Stop: 01/25/21 20:59 Last Admin: 12/29/20 08:53 Dose: 90 mg Documented by: Torsemide (Torsemide 10 Mg Tab) 10 mg PO QAM GLYNN Stop: 01/28/21 08:59 Last Admin: 12/29/20 08:54 Dose: 10 mg Documented by:
--- NOTE | 2020-12-29 12:13 | Hospitalist Progress Note ---
Date of Service December 29, 2020 Assessment & Plan (1) Acute decompensated heart failure: (2) Hypertensive urgency: (3) Hypoxia: (4) UTI (urinary tract infection): (5) Anemia: Plan: SOB with Hypoxia: -2/2 ADHF - has hx of HFmrEF -Echo from 04/2020: EF of 45-50%, LVH with severe hypokineisis of distal anterior wall and apex -CXR: Moderate interstitial pulmonary edema with small bilateral pleural effusions and associated bibasilar opacities. -Repeat Echo with EF of 30 to 35% and severe hypokinesis. Appreciate cardiology input and recommendation. Position to torsemide 10 mg daily. Continue with spironolactone 12.5 mg daily. Continue monitor ins and outs along with daily weights. Remains stable and denies any cardiac symptoms, no arrhythmias in monitor Will be discharged home this afternoon HTN urgency: -will continue home Bp meds -Blood pressure is controlled UTI: uncomplicated -UCx sent Cultures are growing Klebsiella. Discontinue ceftriaxone due to resistance, transition to ciprofloxacin today. We will continue ciprofloxacin to complete the course of 7 days of antibiotic Chronic hx of Anemia: -baseline hgb: ~10 -iron study from clinic: high ferritin and low normal Iron -pt denied any bloody or dark stool -Hemoglobin remains stable at 9.7 CAD s/p DORIAN stent: -c/w Brilinta, BB, aspirin & statin -No acute cardiac symptoms DMII: -hold home PO meds -ISS HLD/GERD/Anxiety/Depression: -continue home meds Diet:Cardiac and DMII DVT PPx:Lovenox Code Status:Full Code Emergency Contact:Florentin [phone] (). Admission and Anticipated Discharge Date Admission Date: December 26, 2020 Subjective 12/29/2020 The patient was seen and examined in telemetry unit She denies any symptoms and wants to go home Review of Systems Review of Systems: All systems reviewed and are unremarkable except as noted below Respiratory: no dyspnea Cardiovascular: no chest pain, no dyspnea and no palpitations Physical Exam Physical Exam: Lying in bed comfortably Constitutional: average body habitus; not ill appearing Eyes: PERRL, conjunctivae normal, anicteric sclerae ENMT: external ear and nose normal, oropharynx normal Neck: trachea midline, no thyromegaly Respiratory: no respiratory distress and no cough Auscultation: lungs clear to auscultation bilaterally and + crackles (Minimal crackles bibasilarly) Cardiovascular: Rate/Rhythm: regular rate and regular rhythm; not tachycardic Heart Sounds: normal S1 and normal S2; no murmur Extremities: no edema Gastrointestinal (Abdomen): Inspection/Auscultation: normal bowel sounds; abdomen not distended Percussion/Palpation: abdomen soft; abdomen nontender Musculoskeletal: No acute arthritis in any joint Neurologic: Alert, awake and oriented x3 Results & Data Results & Data ([facility]) Vital Signs (Past 12 Hours) Vital Signs Temp Pulse Resp BP Pulse Ox 12/29/20 07:30 36.8 C 84 16 131/78 95 12/29/20 04:19 36.7 C 65 16 107/71 95 Laboratory Results BMP 12/29/20 08:42 Sodium 136 Potassium 4.3 Chloride 102 Carbon Dioxide 30 BUN 39 H Creatinine 1.45 H Glucose 234 H Calcium 8.9 Medications Administered Current Inpatient Medications Acetaminophen (Acetaminophen 325 Mg Tab) 650 mg PO Q6H PRN PRN Reason: Fever/pain Stop: 01/27/21 19:35 Last Admin: 12/28/20 20:03 Dose: 650 mg Documented by: Aspirin (Aspirin 81 Mg Ectab) 81 mg PO QAM GLYNN Stop: 01/26/21 08:59 Last Admin: 12/29/20 08:56 Dose: 81 mg Documented by: Atorvastatin Calcium (Atorvastatin 40 Mg Tab) 80 mg PO QAM GLYNN Stop: 01/26/21 08:59 Last Admin: 12/29/20 08:53 Dose: 80 mg Documented by: Ciprofloxacin (Ciprofloxacin 500 Mg Tab) 500 mg PO BID GLYNN Stop: 01/02/21 20:59 Last Admin: 12/29/20 11:47 Dose: 500 mg Documented by: Dextrose (Dextrose 50% 50 Ml Syringe) 25 - 50 ml IV UD PRN; Protocol PRN Reason: Hypoglycemia Protocol Stop: 01/25/21 11:38 Enoxaparin Sodium (Enoxaparin Inj 40 Mg/0.4 Ml Syr) 40 mg SQ DAILY GLYNN Stop: 01/25/21 11:59 Last Admin: 12/29/20 08:57 Dose: 40 mg Documented by: Famotidine (Famotidine 20 Mg Tab) 20 mg PO BID GLYNN Stop: 01/25/21 20:59 Last Admin: 12/29/20 08:57 Dose: 20 mg Documented by: Gabapentin (Gabapentin 300 Mg Cap) 300 mg PO TID GLYNN Stop: 01/25/21 13:59 Last Admin: 12/29/20 08:56 Dose: 300 mg Documented by: Glucagon (Glucagon For Inj 1 Mg Vial) 1 mg SQ UD PRN; Protocol PRN Reason: Hypoglycemia Protocol Stop: 01/25/21 11:38 Glucose (Glucose 10 Tabs/Tube) 4 - 8 tabs PO UD PRN; Protocol PRN Reason: Hypoglycemia Protocol Stop: 01/25/21 11:38 Glucose (Glucose 40% Gel 15 Gm Tube) 15 - 30 gm PO UD PRN; Protocol PRN Reason: Hypoglycemia Protocol Stop: 01/25/21 11:38 Insulin Aspart (Insulin Aspart 100 Units/Ml 3 Ml Pen) 0 units SC ACHS GLYNN Stop: 01/25/21 11:59 Last Admin: 12/29/20 11:47 Dose: Not Given Documented by: Lisinopril (Lisinopril 5 Mg Tab) 5 mg PO BID GLYNN Stop: 01/25/21 20:59 Last Admin: 12/29/20 08:53 Dose: 5 mg Documented by: Magnesium Oxide (Magnesium Oxide 400 Mg Tab) 400 mg PO QAM GLYNN Stop: 01/26/21 09:14 Last Admin: 12/29/20 08:54 Dose: 400 mg Documented by: Metoprolol Succinate (Metoprolol Succ 25mg Ext Rel Tab) 25 mg PO BID GLYNN Stop: 01/25/21 20:59 Last Admin: 12/29/20 08:56 Dose: 25 mg Documented by: Miscellaneous (Carbohydrates For Hypoglycemia ) 15 - 30 gm PO UD PRN PRN Reason: Hypoglycemia Protocol Stop: 01/25/21 11:38 Nitroglycerin (Nitroglycerin Sl 0.4 Mg/Tab Tab) 0.4 mg SL UD PRN PRN Reason: Chest Pain Stop: 01/25/21 11:38 Oxybutynin Chloride (Oxybutynin Chloride 5 Mg Tab) 5 mg PO DAILY GLYNN Stop: 01/26/21 08:59 Last Admin: 12/29/20 08:54 Dose: 5 mg Documented by: Pantoprazole Sodium (Pantoprazole 40 Mg Tab) 40 mg PO DAILY GLYNN Stop: 01/26/21 08:59 Last Admin: 12/29/20 08:56 Dose: 40 mg Documented by: Sertraline HCl (Sertraline Hcl 100 Mg Tablet) 100 mg PO QAM GLYNN Stop: 01/26/21 08:59 Last Admin: 12/29/20 08:56 Dose: 100 mg Documented by: Spironolactone (Spironolactone 12.5 Mg Tab) 12.5 mg PO DAILY GLYNN Stop: 01/26/21 09:14 Last Admin: 12/29/20 08:54 Dose: 12.5 mg Documented by: Ticagrelor (Ticagrelor 90 Mg Tab) 90 mg PO BID GLYNN Stop: 01/25/21 20:59 Last Admin: 12/29/20 08:53 Dose: 90 mg Documented by: Torsemide (Torsemide 10 Mg Tab) 10 mg PO QAM GLYNN Stop: 01/28/21 08:59 Last Admin: 12/29/20 08:54 Dose: 10 mg Documented by:
--- NOTE | 2020-12-29 17:45 | Discharge Summary ---
Date of Service December 29, 2020 Admission HPI Per Admitting Provider Pt is a 65 y/o F with hx of CAD s/p 2 DORIAN, HFmrEF (45-59%), hx of STEMI, Chronic anemia, HTN, DMII, HLD, DAVID, GERD, Anxiety/depression came to the ER with one day hx of urinary frequency and 3 day hx of SOB, cough. Today pt had one episode of NBNB vomiting and nausea. Denied any abd pain, CP, fever, dysuria or hematuria or orthopnea. Denied any COVID exposure. Never taken Lasix in the past. At bedside: per pt her SOB improving with oxygen and Lasix. Denied any CP, DEVINE, Blurry vision or dizziness. In the ER pt was given ceftriaxone and Lasix 40mg IV. She was put on oximask for hypoxia Admission Exam Per Admitting Provider Physical Exam: General:.oxymask in place (3L), NAD, well developed, well nourished, average body habitus HEENT:. Normocephalic and atraumatic, Normal Conjunctiva, EOMI, Sclera is non- icteric Lungs:.b/l lower lobe crackles, no wheezing, fair air entry b/l Heart:. Normal S1, S2, no murmur Abdominal:. ND, Soft, NT MSK:b/l distal LE mild pitting edema Skin:. no rash or open wound Psych:. AAOx3, normal affect Principal Diagnosis Acute decompensated systolic heart failure, hypertensive urgency, UTI Discharge Exam Constitutional average body habitus; not ill appearing Eyes PERRL, conjunctivae normal, anicteric sclerae ENMT external ear and nose normal, oropharynx normal Neck trachea midline, no thyromegaly Respiratory no respiratory distress and no cough Auscultation: lungs clear to auscultation bilaterally and + crackles (Minimal crackles bibasilarly) Cardiovascular Rate/Rhythm: regular rate and regular rhythm; not tachycardic Heart Sounds: normal S1 and normal S2; no murmur Extremities: no edema Gastrointestinal (Abdomen) Inspection/Auscultation: normal bowel sounds; abdomen not distended Percussion/Palpation: abdomen soft; abdomen nontender Discharge Data Allergies Allergy/AdvReac Type Severity Reaction Status Date / Time hydrocodone Allergy Mild UNK Verified 12/26/20 08:29 milk Allergy Unknown Unknown Verified 12/26/20 08:29 pine nut Allergy Unknown Unknown Verified 12/26/20 11:34 Consultations 12/26/20 09:58 ED Decision to Admit Stat 12/26/20 11:39 Consult Cardiology Routine Hospital Course (1) Acute decompensated heart failure: (2) Hypertensive urgency: (3) Hypoxia: (4) UTI (urinary tract infection): (5) Anemia: SOB with Hypoxia: -2/2 ADHF - has hx of HFmrEF -Echo from 04/2020: EF of 45-50%, LVH with severe hypokineisis of distal anterior wall and apex -CXR: Moderate interstitial pulmonary edema with small bilateral pleural effusions and associated bibasilar opacities. -Repeat Echo with EF of 30 to 35% and severe hypokinesis. Appreciate cardiology input and recommendation. Position to torsemide 10 mg daily. Continue with spironolactone 12.5 mg daily. Continue monitor ins and outs along with daily weights. Remains stable and denies any cardiac symptoms, no arrhythmias in monitor Will be discharged home this afternoon HTN urgency: -will continue home Bp meds -Blood pressure is controlled UTI: uncomplicated -UCx sent Cultures are growing Klebsiella. Discontinue ceftriaxone due to resistance, transition to ciprofloxacin today. We will continue ciprofloxacin to complete the course of 7 days of antibiotic Chronic hx of Anemia: -baseline hgb: ~10 -iron study from clinic: high ferritin and low normal Iron -pt denied any bloody or dark stool -Hemoglobin remains stable at 9.7 CAD s/p DORIAN stent: -c/w Brilinta, BB, aspirin & statin -No acute cardiac symptoms DMII: -hold home PO meds -ISS HLD/GERD/Anxiety/Depression: -continue home meds Diet:Cardiac and DMII DVT PPx:Lovenox Code Status:Full Code Emergency Contact:Florentin [phone] (). Total Time Total Time Spent Total Time Spent (In Minutes): 35 minutes Discharge Plan Discharge Items Patient Disposition: Home - Self-Care Reason For Visit: HYPOXIA AND SOB Discharge Diagnosis: Acute decompensated systolic heart failure, hypertensive urgency, UTI Condition on Discharge: Good Activity: Resume your previous activity Non-emergency contact: Primary Care Provider Call non-emergency contact if: you have any medication questions and your symptoms worsen Follow-up/Referrals: Scarlett Aguilar MD [Primary Care Provider] - (Date & Time 01/01/2021 1:00 PM Provider Prashant Dinh MD Department Family Medicine [facility] ) Diet: Heart Healthy Addtl Attending Provider Instructions: Please take precautions to avoid falls Finish the course of antibiotic Please keep appointments with your primary care provider and 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 Please hold torsemide and spironolactone for Friday and Friday and have blood work on Friday as a scheduled in [facility] Pending Studies at Discharge: No Stand-Alone Forms: My [facility], Smoking Cessation Medications and DC Order Prescriptions: New torsemide 10 mg Tablet 10 mg PO QAM 30 Days Qty: 30 RF: 0 ciprofloxacin HCl 500 mg Tablet 500 mg PO BID 3 Days Qty: 6 RF: 0 spironolactone 25 mg Tablet 12.5 mg PO DAILY 30 Days Qty: 15 RF: 0 Lactinex 1 million cell tablet,chewable 1 tab PO BID Qty: 30 RF: 0 Continued metformin 1,000 mg Tablet 1,000 mg PO BIDM Qty: 0 RF: 0 atorvastatin [Lipitor] 80 mg Tablet 80 mg PO QAM RF: 0 famotidine [Pepcid] 20 mg Tablet 20 mg PO BID RF: 0 oxybutynin chloride 5 mg Tablet 5 mg PO DAILY RF: 0 nitroglycerin [Nitrostat] 0.4 mg tablet, sublingual 0.4 mg sublingual UD PRN (Reason: Chest Pain) RF: 0 Tradjenta 5 mg tablet 5 mg PO QAM RF: 0 sertraline [Zoloft] 100 mg tablet 100 mg PO QAM RF: 0 Brilinta 90 mg Tablet 90 mg PO BID Qty: 60 RF: 0 lisinopril [Zestril] 5 mg Tablet 5 mg PO BID Qty: 60 RF: 0 gabapentin [Neurontin] 300 mg capsule 300 mg PO TID RF: 0 aspirin [Aspirin Low Dose] 81 mg Tablet,Delayed Release (Dr/Ec) 81 mg PO QAM RF: 0 pantoprazole [Protonix] 20 mg tablet,delayed release (DR/EC) 20 mg PO DAILY RF: 0 metoprolol succinate [Toprol XL] 25 mg tablet extended release 24 hr 25 mg PO BID RF: 0 Discharge Orders: Discharge Order (Routine); Ordered 12/29/20 Ordered By: Elisa Navarrete Admission Data Admit Date/Time: 12/26/20 10:13 Attending Provider: Elisa Navarrete Admit Provider: Prashant Dinh Primary Care Provider: Scarlett Aguilar Other Providers: Prashant Dinh ; Dimitris Bullock Muhammad J. Other Interventions: Discharge Summary Assessment (RN) Last Done: 12/29/20 14:10
== END 2020-12-29 14:31 | disposition home or self-care (01) | DRG 291 ==
LOC: ED 07:39 → INTOOBSV 10:13 → 2S 10:13 → SUATTDRO 10:13 → 2S 11:22
DX: Z91.018 Allergy to other foods; K21.9 Gastro-esophageal reflux disease without esophagitis; Z88.6 Allergy status to analgesic agent; I16.0 Hypertensive urgency; I25.2 Old myocardial infarction; F41.9 Anxiety disorder, unspecified; M19.90 Unspecified osteoarthritis, unspecified site; Z79.82 Long term (current) use of aspirin; Z91.011 Allergy to milk products; N39.0 Urinary tract infection, site not specified; Z87.891 Personal history of nicotine dependence; D64.9 Anemia, unspecified; I25.10 Atherosclerotic heart disease of native coronary artery without angina pectoris; I50.23 Acute on chronic systolic (congestive) heart failure; Z51.81 Encounter for therapeutic drug level monitoring; E78.5 Hyperlipidemia, unspecified; B96.89 Other specified bacterial agents as the cause of diseases classified elsewhere; Z79.84 Long term (current) use of oral hypoglycemic drugs; E11.9 Type 2 diabetes mellitus without complications; F32.9 Major depressive disorder, single episode, unspecified; I25.5 Ischemic cardiomyopathy; Z79.899 Other long term (current) drug therapy; Z91.048 Other nonmedicinal substance allergy status; R09.02 Hypoxemia; I11.0 Hypertensive heart disease with heart failure; Z20.822 Contact with and (suspected) exposure to COVID-19; Z95.5 Presence of coronary angioplasty implant and graft

== ENCOUNTER 2021-06-15 09:58 | Inpatient (IN) ==
[2021-06-15] MEDS ORDERED: CEFEPIME 2,000 MG/20 ML VIAL IV STA (10:04)
[2021-06-15] MEDS ORDERED: FUROSEMIDE 40 MG/4 ML VIAL IV ONE (10:11)
[2021-06-15] MEDS ORDERED: ONDANSETRON INJ 2 MG/ML 2 ML VIAL IV STA (10:16)
--- NOTE | 2021-06-15 10:16 | Emergency Department Note ---
History of Present Illness General Chief complaint: Illness Stated complaint: SOB, MALAISE, WEAKNESS Time Seen by Provider: 06/15/21 09:58 History of Present Illness Maximum Pain Intensity: 9 65-year-old female presents to the ED with a chief complaint of as of breath. The patient states that she went to bed and she was feeling fine. She has not had any infectious symptoms when she went to bed last night. She denied having chest pains or shortness of breath. She states that she awoke this morning and had some diarrhea. She then developed a cough, felt hot and also developed some nausea and vomiting. Her shortness of breath started around the same time and progressively worsened. She states that it feels like her lungs are filled with fluid. She states that she felt like this previously when she was in the hospital and had congestive heart failure. The patient denies any other complaints at this time. Oxygen seems to help. She was noted to be hypoxic for EMS as well as here off of oxygen. She does not use home oxygen. Saturations were 85% on room air. Home Medications Medication Instructions Recorded Confirmed Type atorvastatin 80 mg tablet (Lipitor) 80 mg PO HS 03/29/18 06/15/21 History famotidine 20 mg tablet (Pepcid) 20 mg PO BID 12/26/19 06/15/21 History oxybutynin chloride 5 mg tablet 5 mg PO DAILY 12/26/19 06/15/21 History nitroglycerin 0.4 mg sublingual 0.4 mg SUBLINGUAL UD PRN 02/28/20 06/15/21 History tablet (Nitrostat) sertraline 100 mg tablet (Zoloft) 100 mg PO QAM 02/28/20 06/15/21 History lisinopril 5 mg tablet (Zestril) 5 mg PO BID #60 tab 05/06/20 06/15/21 Rx aspirin 81 mg tablet,delayed 81 mg PO QAM 12/26/20 06/15/21 History release (Aspirin Low Dose) metoprolol succinate 25 mg 25 mg PO BID 12/26/20 06/15/21 History tablet,extended release 24 hr (Toprol XL) pantoprazole 20 mg tablet,delayed 20 mg PO DAILY 12/26/20 06/15/21 History release (Protonix) gabapentin 100 mg capsule 200 mg PO TID 06/15/21 06/15/21 History metformin 500 mg tablet,extended 500 mg PO BIDM 06/15/21 06/15/21 History release 24 hr Allergies Allergy/AdvReac Type Severity Reaction Status Date / Time hydrocodone Allergy Intermediate Hives Verified 06/15/21 11:52 milk Allergy Intermediate Hives Verified 06/15/21 11:52 pine nut Allergy Intermediate Hives Verified 06/15/21 11:52 Past Med/Surg History Medical History Anemia Arthritis CAD (coronary artery disease) Depression Diabetes HTN (hypertension) Surgical History No pertinent past surgical history S/P arterial stent Family History Other Deep vein thrombosis Social History Smoking Status: Never smoker Second Hand Exposure: No; Hx Alcohol Use: Yes Alcohol type: other Hx Substance Use: No Preferred Language: Scottish Communication Ability: Effective Visual Impairment: No Limitations Hearing Ability: Normal Voicer Required: No Beliefs That Will Affect Care: None marital status: Current Living Situation: Spouse Current Living Situation Comment: The patient states that she lives with her child and their fianc. current occupational status: unemployed How many Children do You have: 3 Feels Safe at Home: Yes Assistive Devices: None Review of Systems A total of 10 systems reviewed and were otherwise negative Physical Exam Vital Signs Vital Signs - 24 hr 06/15/21 09:55 06/15/21 10:35 06/15/21 11:20 Temperature 36.7 C Temperature Source Oral Pulse Rate 105 H 104 H Pulse Rhythm Regular Regular Pulse Strength Normal Respiratory Rate 20 22 Respiratory Effort / Characteristics Non-Labored Spontaneous Respiratory Depth Normal Respiratory Pattern Regular Blood Pressure 163/92 H Blood Pressure Mean 115 Blood Pressure Position Sitting Pulse Oximetry 85 L 100 99 Oxygen Delivery Method Room Air Nasal Cannula Nasal Cannula Oxygen Flow Rate 4 4 Sepsis Recent Fever Within 48 Hours No Sepsis New/Unexplained Change in Mental Status No Sepsis Action Taken by Nursing No Action Required Oxygen Flow Rate - Titration 2 Pulse Oximetry Post Tiitration 96 06/15/21 11:35 06/15/21 11:44 Temperature Temperature Source Pulse Rate Pulse Rhythm Pulse Strength Respiratory Rate Respiratory Effort / Characteristics Respiratory Depth Respiratory Pattern Blood Pressure Blood Pressure Mean Blood Pressure Position Pulse Oximetry 96 86 L Oxygen Delivery Method Room Air Nasal Cannula Room Air Nasal Cannula Oxygen Flow Rate 2 0 Sepsis Recent Fever Within 48 Hours Sepsis New/Unexplained Change in Mental Status Sepsis Action Taken by Nursing Oxygen Flow Rate - Titration 0 2 Pulse Oximetry Post Tiitration 92 91 CONSTITUTIONAL/VITAL SIGNS: Reviewed / noted above. GENERAL: Non-toxic in appearance. INTEGUMENTARY: Warm, dry, and [place]. HEAD: Normocephalic. EYES: without scleral icterus or trauma. ENT/OROPHARYNX: clear and moist. LYMPHADENOPATHY/NECK: Is supple without lymphadenopathy or meningismus. RESPIRATORY: Rales in all sung bilaterally. Mild increased work of breathing. CARDIOVASCULAR: Regular rate and rhythm. GI/ABDOMEN: Soft and nontender. No organomegaly or pulsatile mass. EXTREMITIES: Warm and well perfused. Mild pedal edema. BACK: No CVA tenderness. NEUROLOGICAL: Intact without focal deficits. PSYCHIATRIC: normal affect. MUSCULOSKELETAL: Normally developed with good muscle tone. TRIAGE NURSING DOCUMENTATION REVIEWED. Course Administered Medications Discontinued Medications Furosemide (Furosemide 40 Mg/4 Ml Vial) 40 mg IV ONE ONE Stop: 06/15/21 10:12 Last Admin: 06/15/21 10:29 Dose: 40 mg Documented by: [id number] Cefepime HCl (Maxipime) 2,000 mg in 20 mls @ 5 mls/min IV NOW STA; Protocol Stop: 06/15/21 10:07 Last Admin: 06/15/21 10:29 Dose: 5 mls/min Documented by: [id number] Ondansetron HCl (Ondansetron Inj 2 Mg/Ml 2 Ml Vial) 4 mg IV NOW STA Stop: 06/15/21 10:17 Last Admin: 06/15/21 10:32 Dose: 4 mg Documented by: [id number] Medical Decision Making Differential Diagnosis The differential was considered includes acute myocardial infarction, acute coronary syndrome, myocarditis, pericarditis, pericardial effusions /tamponad, esophageal perforation, pulmonary embolism, pneumonia, pneumothorax, cardiomyopathy, congestive heart, anemia , COPD/asthma exacerbation. Medical Records Attestation: I reviewed the patient's medical records. Home Medications Current Medication List: was personally reviewed by me Laboratory Data Attestation: I reviewed the patient's lab results. Result diagrams: 06/15/21 10:22 06/15/21 10:22 Lab Results 06/15/21 06/15/21 06/15/21 Range/Units 10:22 10:22 10:22 WBC 9.51 (4.8-10.8) K/uL RBC 3.67 L (4.2-5.4) M/uL Hgb 11.2 L (12.0-16.0) g/dL Hct 34.3 L (37-47) % MCV 93.5 (80-100) fL MCH 30.5 (25-34) pg MCHC 32.7 (32-36) g/dL RDW Std Deviation 46.7 H (36.4-46.3) fL RDW Coeff of Ronaldo 13.7 (11.5-14.5) % Plt Count 217 (130-400) K/uL MPV 10.5 H (7.4-10.4) fL Immature Gran % (Auto) 0.2 % Neut % (Auto) 89.0 % Lymph % (Auto) 8.0 % [place] % (Auto) 2.3 % Eos % (Auto) 0.4 % Baso % (Auto) 0.1 % Neut # (Auto) 8.46 H (1.4-6.5) K/uL Lymph # (Auto) 0.76 L (1.2-3.4) K/uL [place] # (Auto) 0.22 (0.11-0.59) K/uL Eos # (Auto) 0.04 (0-0.5) K/uL Baso # (Auto) 0.01 (0-0.2) K/uL Immature Gran # (Auto) 0.02 (0.00-0.02) K/uL PT 10.8 (9.0-12.0) Seconds INR 1.0 (0.9-1.1) APTT 24.0 (21.0-31.0) Seconds PTT Ratio 0.9 Sodium 136 (136-145) mmol/L Potassium 4.8 (3.5-5.1) mmol/L Chloride 102 (98-107) mmol/L Carbon Dioxide 27 (21-32) mmol/L Anion Gap 7 (3-11) BUN 22 (6-23) mg/dl Creatinine 0.95 (0.6-1.2) mg/dl Est Cr Clr Drug Dosing 65.0 ml/min Est GFR ( Amer) 73.9 ml/min Est GFR (Non-Af Amer) 63.7 ml/min BUN/Creatinine Ratio 23.2 H (10-20) Glucose 303 H* (70-99(Fasting)) mg/dl Lactate (0.4-2.0) mmol/L Calcium 9.1 (8.5-10.1) mg/dl Magnesium 1.4 L (1.7-2.4) mg/dl Total Bilirubin 0.5 (0.2-1.0) mg/dl AST 14 (13-39) U/L ALT 6 L (7-52) U/L Alkaline Phosphatase 92 (34-104) U/L Troponin I 0.08 H* (0-0.04) ng/ml Total Protein 7.6 (6.0-8.3) gm/dl Albumin 4.0 (3.4-5.0) gm/dl Globulin 3.6 (2.5-4.0) gm/dl Albumin/Globulin Ratio 1.1 (0.9-2) Procalcitonin (0-0.5) ng/ml SARS-CoV-2 (PCR) (Negative) Influenza Type A (PCR) (Neg) Influenza Type B (PCR) (Neg) RSV (RT-PCR) (Neg) 06/15/21 06/15/21 06/15/21 Range/Units 10:22 10:22 10:26 WBC (4.8-10.8) K/uL RBC (4.2-5.4) M/uL Hgb (12.0-16.0) g/dL Hct (37-47) % MCV (80-100) fL MCH (25-34) pg MCHC (32-36) g/dL RDW Std Deviation (36.4-46.3) fL RDW Coeff of Ronaldo (11.5-14.5) % Plt Count (130-400) K/uL MPV (7.4-10.4) fL Immature Gran % (Auto) % Neut % (Auto) % Lymph % (Auto) % [place] % (Auto) % Eos % (Auto) % Baso % (Auto) % Neut # (Auto) (1.4-6.5) K/uL Lymph # (Auto) (1.2-3.4) K/uL [place] # (Auto) (0.11-0.59) K/uL Eos # (Auto) (0-0.5) K/uL Baso # (Auto) (0-0.2) K/uL Immature Gran # (Auto) (0.00-0.02) K/uL PT (9.0-12.0) Seconds INR (0.9-1.1) APTT (21.0-31.0) Seconds PTT Ratio Sodium (136-145) mmol/L Potassium (3.5-5.1) mmol/L Chloride (98-107) mmol/L Carbon Dioxide (21-32) mmol/L Anion Gap (3-11) BUN (6-23) mg/dl Creatinine (0.6-1.2) mg/dl Est Cr Clr Drug Dosing ml/min Est GFR ( Amer) ml/min Est GFR (Non-Af Amer) ml/min BUN/Creatinine Ratio (10-20) Glucose (70-99(Fasting)) mg/dl Lactate 1.1 (0.4-2.0) mmol/L Calcium (8.5-10.1) mg/dl Magnesium (1.7-2.4) mg/dl Total Bilirubin (0.2-1.0) mg/dl AST (13-39) U/L ALT (7-52) U/L Alkaline Phosphatase (34-104) U/L Troponin I (0-0.04) ng/ml Total Protein (6.0-8.3) gm/dl Albumin (3.4-5.0) gm/dl Globulin (2.5-4.0) gm/dl Albumin/Globulin Ratio (0.9-2) Procalcitonin < 0.05 (0-0.5) ng/ml SARS-CoV-2 (PCR) NEGATIVE (Negative) Influenza Type A (PCR) Negative (Neg) Influenza Type B (PCR) Negative (Neg) RSV (RT-PCR) Negative (Neg) Imaging Data Radiologist's Impression: Chest X-Ray 06/15/21 10:04 XR chest 1V portable HISTORY: SEPSIS COMPARISON: Chest 12/27/2020. FINDINGS: No pneumothorax. The heart remains mildly enlarged. There are trace bilateral pleural effusions. There is diffuse interstitial/vascular thickening with perihilar hazy airspace opacities. This has progressed in the interval and likely represents moderate pulmonary edema. IMPRESSION: 1. Cardiomegaly with interval progression of the moderate pulmonary edema. 2. Trace bilateral pleural effusions. ACT 112: Negative or not required by law. Electronically signed by: Nicholas Lombardo M.D. 06/15/2021 11:01 AM ECG Data Attestation: I personally reviewed and interpreted this ECG as follows: Additional Comments: Twelve-lead EKG: Per my interpretation shows a sinus rhythm at a rate of 100 with right bundle branch block. No ST elevation. No PVCs. Normal QTC. MDM Narrative 65-year-old female presents with hypoxia with saturations of 85% on room air. She does not use home oxygen. Symptoms started suddenly when she awoke associate with some nausea, vomiting and diarrhea. He also developed a cough this morning that is productive of phlegm. She reports that her chest feels like it is filled with fluid. She does Rales bilaterally on exam. She also has pedal edema. She is afebrile. Initial blood pressure for EMS was a little over 200 systolic. Here 163/92. The patient's twelve-lead EKG shows a sinus rhythm at a rate of 100 with right bundle branch block. CBC was unremarkable. Lactic acid is negative. Procalcitonin is negative. Glucose is 303. Chest x-ray suggest pulmonary edema. Troponin is mildly elevated. The patient was treated with IV Lasix. She was given IV Zofran for some nausea as well as IV cefepime empirically. The patient will be admitted to the hospital for further inpatient evaluation and care. Impression & Plan Acute cardiac pulmonary edema, Hypoxia Discharge Plan Visit Data Chief Complaint: Illness Stated Complaint: SOB, MALAISE, WEAKNESS ED Provider: Brad Chappell Discharge Problem: Acute cardiac pulmonary edema, Hypoxia Patient Disposition: Being Evaluated by Hospitalist Forms Stand Alone Forms: My [facility], [facility] Emergency Department, Im portant Visit Information Prescriptions Prescriptions: No Action atorvastatin [Lipitor] 80 mg Tablet 80 mg PO HS RF: 0 famotidine [Pepcid] 20 mg Tablet 20 mg PO BID RF: 0 oxybutynin chloride 5 mg Tablet 5 mg PO DAILY RF: 0 nitroglycerin [Nitrostat] 0.4 mg tablet, sublingual 0.4 mg sublingual UD PRN (Reason: Chest Pain) RF: 0 sertraline [Zoloft] 100 mg tablet 100 mg PO QAM RF: 0 lisinopril [Zestril] 5 mg Tablet 5 mg PO BID Qty: 60 RF: 0 aspirin [Aspirin Low Dose] 81 mg Tablet,Delayed Release (Dr/Ec) 81 mg PO QAM RF: 0 pantoprazole [Protonix] 20 mg tablet,delayed release (DR/EC) 20 mg PO DAILY RF: 0 metoprolol succinate [Toprol XL] 25 mg tablet extended release 24 hr 25 mg PO BID RF: 0 gabapentin 100 mg capsule 200 mg PO TID RF: 0 metformin 500 mg tablet extended release 24 hr 500 mg PO BIDM RF: 0 Referrals Referrals: Scarlett Aguilar MD [Primary Care Provider] -
[2021-06-15 10:37] LABS: Basophils # (auto) 0.01 K/uL (0-0.2); Basophils % (auto) 0.1 %; Eosinophils # (auto) 0.04 K/uL (0-0.5); Eosinophils % (auto) 0.4 %; Hematocrit (blood only) 34.3 % (37-47); Hemoglobin 11.2 g/dL (12.0-16.0); Immature Granulocytes # (auto) 0.02 K/uL (0.00-0.02); Immature Granulocytes % (auto) 0.2 %; Lymphocytes # (auto) 0.76 K/uL (1.2-3.4); Mean Corpuscular Hemoglobin 30.5 pg (25-34); Mean Corpuscular Hgb Conc 32.7 g/dL (32-36); Mean Corpuscular Volume 93.5 fL (80-100); Mean Platelet Volume 10.5 fL (7.4-10.4); Monocytes # (auto) 0.22 K/uL (0.11-0.59); Monocytes % (auto) 2.3 %; Neutrophils # (auto) 8.46 K/uL (1.4-6.5); Platelet Count 217 K/uL (130-400); RDW Coefficient of Variation 13.7 % (11.5-14.5); RDW Standard Deviation 46.7 fL (36.4-46.3); Red Blood Count 3.67 M/uL (4.2-5.4); White Blood Count 9.51 K/uL (4.8-10.8)
[2021-06-15 10:54] LABS: Partial Thromboplastin Ratio 0.9; Prothrombin Time 10.8 Seconds (9.0-12.0)
[2021-06-15 10:57] LABS: Albumin Globulin Ratio 1.1 (0.9-2); BUN Creatinine Ratio 23.2 (10-20); Bilirubin,Total 0.5 mg/dl (0.2-1.0); Calcium 9.1 mg/dl (8.5-10.1); Est GFR (African American) 73.9 ml/min; Est GFR (Non-African American) 63.7 ml/min; Globulin 3.6 gm/dl (2.5-4.0); Magnesium 1.4 mg/dl (1.7-2.4); Potassium 4.8 mmol/L (3.5-5.1); Total Protein 7.6 gm/dl (6.0-8.3)
--- NOTE | 2021-06-15 11:02 | XRay Report ---
XR chest 1V portable HISTORY: SEPSIS COMPARISON: Chest 12/27/2020. FINDINGS: No pneumothorax. The heart remains mildly enlarged. There are trace bilateral pleural effus ions. There is diffuse interstitial/vascular thickening with perihilar hazy airspace opacities. This has progressed in the interval and likely represents moderate pulmonary edema. IMPRESSION: 1. Cardiomegaly with interval progression of the moderate pulmonary edema. 2. Trace bilateral pleural effusions. ACT 112: Negative or not required by law. Electronically signed by: Nicholas Lombardo M.D. 06/15/2021 11:01 AM
[2021-06-15 11:15] LABS: Influenza A virus by PCR Negative (Neg); Influenza B virus by PCR Negative (Neg); RSV by PCR Negative (Neg); SARS CoV2 RNA(COVID-19) InHosp NEGATIVE (Negative)
[2021-06-15 11:26] LABS: Troponin I 0.08 ng/ml (0-0.04)
[2021-06-15] MEDS ORDERED: HYDROCODONE/ACETAMOPHEN 5/325MG TAB PO PRN (12:02)
[2021-06-15] MEDS ORDERED: CYCLOBENZAPRINE HCL 10 MG TAB PO PRN (12:02)
[2021-06-15] MEDS ORDERED: APIXABAN 5 MG TABLET PO SCH (12:15)
[2021-06-15 12:33] LABS: Appearance Urine Clear (Clear); Bacteria Urine Automated Negative (Negative); Bilirubin Urine Negative (Negative); Blood Urine Trace (Negative); Cast Urine Automated 0 /lpf (0-5); Color Urine Yellow; Glucose Urine UA 2+ (Negative); Ketones Urine Negative (Negative); Leukocyte Esterase Urine Negative (Negative); Nitrite Urine Negative (Negative); Protein Urine 2+ (Negative); RBC Urine Automated 0-4 /hpf (0-4); Specific Gravity Urine 1.011 (1.000-1.030); Urobilinogen Urine Negative (Negative)
--- NOTE | 2021-06-15 13:11 | History & Physical Report ---
Date of Service June 15, 2021 Assessment & Plan (1) Acute respiratory failure with hypoxia: (2) Acute on chronic systolic HF (heart failure): (3) Ischemic cardiomyopathy: (4) CAD (coronary artery disease): Plan: Admit to telemetry Patient presenting from home with reports of nausea, vomiting, shortness of breath, left arm discomfort/numbness Patient with history of CAD- DORIAN x2 to mid LAD in February 2020, cardiac cath April 2020 demonstrated patent stents and nonobstructive disease In the ED, patient hypoxic on room air at 85%, currently saturating well on 2 L of oxygen via nasal cannula CXR shows pulmonary edema Echo 02/2021-EF 45% EKG shows sinus tachycardia with bifascicular block which has been present on prior EKGs, troponin mildly elevated 0.08 Trend troponin, update echo S/p Lasix 40 mg IV in the ED, continue Lasix 40 mg IV twice daily Continue home beta-erickson, ERA inhibitor, ASA, statin Lerner placed for strict I's and O's, low Na+ diet, daily standing weights Cardiology consult, case discussed with Dr. Delcid (5) DMII (diabetes mellitus, type 2): Plan: Hgb A1c 7.4 11/2020 Hold Metformin, utilize Lantus and NovoLog per protocol while hospitalized Noted to be hyperglycemic with blood sugar 303, no signs of DKA Glycemic pharmacy consult (6) Hypertension: Plan: BP mildly elevated, continue home doses of metoprolol and lisinopril for now Receiving diuresis as above Monitor BP (7) DVT prophylaxis: Plan: SQ Lovenox History of Present Illness Chief Complaint: Shortness of breath, nausea and vomiting Primary Care Provider: Scarlett Devries MD 65-year-old female with PMH DM type II, GERD, ischemic cardiomyopathy, CAD s/p DORIAN to LAD x2 in February 2020, depression, and other problems listed below who presents to the ED for evaluation of nausea, vomiting, and shortness of breath. Patient reports she went to bed last evening feeling in her usual state of health. This morning, whenever she woke up she had sudden onset of nausea and a few episodes of vomiting. Patient notes associated left arm discomfort, numbness, tingling. She also has shortness of breath. Patient denies chest pain. No lightheadedness, dizziness, diaphoresis, syncopal events. Patient notes symptoms are similar to her heart attack however she did not have any chest pain this morning. Patient notes about a 10 pound weight gain over the past 1 week. Denies lower extremity edema and orthopnea. No other recent illnesses, fevers, chills. Denies hematemesis, coffee-ground emesis, bright lamp rectum, dark tarry stools. No abdominal pain. Denies urinary symptoms. In the ED, patient was 85% on room air. She is currently saturating well on 2 L of oxygen via nasal cannula. CXR shows signs of pulmonary edema. EKG shows sinus tachycardia with a bifascicular block. Initial troponin mildly elevated at 0.08. Patient was given Lasix 40 mg IV and IV cefepime. Allergies Allergy/AdvReac Type Severity Reaction Status Date / Time hydrocodone Allergy Intermediate Hives Verified 06/15/21 11:52 milk Allergy Intermediate Hives Verified 06/15/21 11:52 pine nut Allergy Intermediate Hives Verified 06/15/21 11:52 Home Medications Medication Instructions Recorded Confirmed Type atorvastatin 80 mg tablet (Lipitor) 80 mg PO HS 03/29/18 06/15/21 History famotidine 20 mg tablet (Pepcid) 20 mg PO BID 12/26/19 06/15/21 History oxybutynin chloride 5 mg tablet 5 mg PO DAILY 12/26/19 06/15/21 History nitroglycerin 0.4 mg sublingual 0.4 mg SUBLINGUAL UD PRN 02/28/20 06/15/21 History tablet (Nitrostat) sertraline 100 mg tablet (Zoloft) 100 mg PO QAM 02/28/20 06/15/21 History lisinopril 5 mg tablet (Zestril) 5 mg PO BID #60 tab 05/06/20 06/15/21 Rx aspirin 81 mg tablet,delayed 81 mg PO QAM 12/26/20 06/15/21 History release (Aspirin Low Dose) metoprolol succinate 25 mg 25 mg PO BID 12/26/20 06/15/21 History tablet,extended release 24 hr (Toprol XL) pantoprazole 20 mg tablet,delayed 20 mg PO DAILY 12/26/20 06/15/21 History release (Protonix) gabapentin 100 mg capsule 200 mg PO TID 06/15/21 06/15/21 History metformin 500 mg tablet,extended 500 mg PO BIDM 06/15/21 06/15/21 History release 24 hr torsemide 10 mg tablet 10 mg PO DAILY 06/15/21 06/15/21 History Past Med/Surg History Medical History Anemia Arthritis CAD (coronary artery disease) 02/2020-DORIAN x2 to mid LAD 04/2020 cardiac cath demonstrated patent stents and nonobstructive disease Depression Diabetic polyneuropathy DMII (diabetes mellitus, type 2) GERD (gastroesophageal reflux disease) HTN (hypertension) Ischemic cardiomyopathy DAVID (obstructive sleep apnea) STEMI (ST elevation myocardial infarction) Surgical History History of appendectomy History of carpal tunnel surgery Hx of cholecystectomy No pertinent past surgical history S/P arterial stent S/P FELA (total abdominal hysterectomy) Family History Other Deep vein thrombosis Social History Smoking Status: Never smoker Second Hand Exposure: No; Hx Alcohol Use: Yes Alcohol type: other Hx Substance Use: No Preferred Language: Swedish Communication Ability: Effective Visual Impairment: No Limitations Hearing Ability: Normal [employer] Required: No Beliefs That Will Affect Care: None marital status: Current Living Situation: Spouse Current Living Situation Comment: The patient states that she lives with her child and their fianc. current occupational status: unemployed How many Children do You have: 3 Feels Safe at Home: Yes Assistive Devices: None Review of Systems Review of Systems: ROS per HPI, all other systems reviewed and negative Physical Exam Constitutional: WD/WN, vitals as above Eyes: PERRL, conjunctivae normal, anicteric sclerae ENMT: external ear and nose normal, oropharynx normal Respiratory: Auscultation: + diminished lung sounds and + crackles (upper anterior lung sung) Cardiovascular: Rate/Rhythm: regular rhythm and + tachycardic Vessels: normal peripheral pulses Extremities: no edema Gastrointestinal (Abdomen): normal bowel sounds, soft, nontender, no hepatosplenomegaly Musculoskeletal: no cyanosis or clubbing, extremities motor strength 5/5 Skin: no rashes, warm and dry Neurologic: PERRL, EOMI, accommodation nl, no face palsy, no dysarthria Psychiatric: A+Ox3, euthymic affect Results & Data Results & Data ([facility]) Vital Signs (Past 12 Hours) Vital Signs Temp Pulse Resp BP Pulse Ox 06/15/21 12:00 82 17 154/87 H 92 06/15/21 11:44 86 L 06/15/21 11:35 96 06/15/21 11:30 95 H 21 100 06/15/21 11:20 99 06/15/21 11:00 100 H 23 98 06/15/21 10:35 104 H 22 100 06/15/21 09:55 36.7 C 105 H 20 163/92 H 85 L Laboratory Results Short CBC 06/15/21 Range/Units 10:22 WBC 9.51 (4.8-10.8) K/uL Hgb 11.2 L (12.0-16.0) g/dL Hct 34.3 L (37-47) % Plt Count 217 (130-400) K/uL BMP 06/15/21 10:22 Sodium 136 Potassium 4.8 Chloride 102 Carbon Dioxide 27 BUN 22 Creatinine 0.95 Glucose 303 H* Calcium 9.1 Cardiac Enzymes 06/15/21 Range/Units 10:22 Troponin I 0.08 H* (0-0.04) ng/ml Liver Function 06/15/21 Range/Units 10:22 Total Bilirubin 0.5 (0.2-1.0) mg/dl AST 14 (13-39) U/L ALT 6 L (7-52) U/L Alkaline Phosphatase 92 (34-104) U/L Albumin 4.0 (3.4-5.0) gm/dl Urine 06/15/21 Range/Units 11:55 Urine Color Yellow Urine Appearance Clear (Clear) Urine pH 7.0 (4.5-7.5) Ur Specific Reubens 1.011 (1.000-1.030) Urine Protein 2+ H (Negative) Urine Glucose (UA) 2+ H (Negative) Diagnostic Findings Chest X-Ray 06/15/21 10:04 XR chest 1V portable HISTORY: SEPSIS COMPARISON: Chest 12/27/2020. FINDINGS: No pneumothorax. The heart remains mildly enlarged. There are trace bilateral pleural effusions. There is diffuse interstitial/vascular thickening with perihilar hazy airspace opacities. This has progressed in the interval and likely represents moderate pulmonary edema. IMPRESSION: 1. Cardiomegaly with interval progression of the moderate pulmonary edema. 2. Trace bilateral pleural effusions. ACT 112: Negative or not required by law. Electronically signed by: Nicholas Lombardo M.D. 06/15/2021 11:01 AM Code Status & VTE Plan VTE Prophylaxis Plan VTE Prophylaxis will be ordered: Yes Supervising Physician Co-Signing Physician Notes Attending addendum: The patient was seen and examined in emergency room He has been complaining of acute shortness of breath since this morning He denies any chest pain but did have some left arm pain on the radial side She has gained about 20 pounds in the last week with some leg swelling as well On examination Lying in bed comfortably and has been feeling a little bit better since in the emergency room Chest-decreased breath sounds with fine crackles at the bases Heart-S1-S2, regular Abdomen-benign Extremities-trace edema bilaterally 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
--- NOTE | 2021-06-15 13:40 | Electrocardiogram Report ---
Test Reason : Blood Pressure : / mmHG Vent. Rate : 102 BPM Atrial Rate : 102 BPM P-R Int : 134 ms QRS Dur : 134 ms QT Int : 402 ms P-R-T Axes : 073 -71 061 degrees QTc Int : 523 ms Sinus tachycardia Right bundle branch block Left anterior fascicular block Bifascicular block Minimal voltage criteria for LVH, may be normal variant Abnormal ECG When compared with ECG of 02-JAN-2021 09:30, Premature ventricular complexes are no longer Present (RBBB and left anterior fascicular block) is now Present Confirmed by Juan Francisco Munroe ([id number] on 06/15/2021 1:39:59 PM Referred By: ED Confirmed By:Immanuel Munroe
[2021-06-15] MEDS ORDERED: GLUCAGON FOR INJ 1 MG VIAL SQ PRN (14:59)
[2021-06-15] MEDS ORDERED: PHARMACY GLYCEMIC MGMT CONSULT PRN (14:59)
[2021-06-15] MEDS ORDERED: ACETAMINOPHEN 325 MG TAB PO PRN (14:59)
[2021-06-15] MEDS ORDERED: CARBOHYDRATES FOR HYPOGLYCEMIA PO PRN (14:59)
[2021-06-15] MEDS ORDERED: DEXTROSE 50% 50 ML SYRINGE IV PRN (14:59)
[2021-06-15] MEDS ORDERED: GLUCOSE 40% GEL 15 GM TUBE PO PRN (14:59)
[2021-06-15] MEDS ORDERED: GLUCOSE 10 TABS/TUBE PO PRN (14:59)
--- NOTE | 2021-06-15 15:10 | Cardiology Consultation ---
Date of Consultation June 15, 2021 Assessment & Plan (1) Acute on chronic systolic HF (heart failure): (2) Ischemic cardiomyopathy: (3) Bifascicular block: The patient's most recent outpatient visit March,, volume status was stable. She was treated with torsemide 10 mg daily. Most recent outpatient echocardiogram had been in February,, and her ejection fraction had been calculated to be 45% at that time. Echocardiogram performed today reveals interval decline in ejection fraction to 25 to 30%. LAD territory regional wall motion abnormalities persist, similar to those described at the time of her previous echo in the hospital in December,, with findings of tachycardia, Doppler findings of grade remember 3 diastolic dysfunction with evidence of elevated left heart filling pressures, pulmonary hypertension, PASP 59 mmHg. Blood pressure quite high in the emergency room with systolic blood pressures ranging anywhere from 150 to 180 mmHg. Magnesium is low at 1.4 and is being corrected. Troponin minimally elevated at 0.08 NG per mL. Of note at the time of her anterior wall VT in February,, troponin I peaked at 106 at that time. Agree with IV furosemide, 40 mg IV twice daily, Lerner catheter is in place, and her next dose of diuretic is due with 1700. If feasible from a cost standpoint, take this opportunity to transition her to Entresto. As per package insert, will hold ERA inhibitor (lisinopril) for 36-hour washout. Prior to starting Entresto. In meantime, continue metoprolol and IV diuretic for her hypertension, add topical nitroglycerin. Dr Bullock rounding 06/16/21. History of Present Illness Attending Physician: Ada Santos DO History of Present Illness Aida Willis is a 65 year old female seen in cardiology consultation per the request of VIR[place]IA Phelan of the [facility] service for acute systolic hear failure. Patient seen in room A 9 of the emergency department, accompanied by her daughter. She describes recently feeling well, feeling well yesterday with no recent shortness of breath orthopnea, first and this morning she felt progressive nausea, generalized illness, and transient tingling in her left arm. She subsequently felt short of breath. On arrival to the emergency department, pulse oximetry was 86%. She received a dose of furosemide 40 mg x 1, and Lerner catheter was placed, she is feeling better. At the time my assessment, sinus rhythm but bifascicular block in the range of 90 to 110 bpm present. Cardiac History: 1. History of hypertensive urgency 2. Cardiac cath in Jan 2020 revealing moderate non obstructive disease with intermediate mid LAD lesion which was felt to not be hemodynamically significant by FFR assessment. 3. Anterior STEMI in February 2020 with 2 DORIAN for 100% occlusion to the LAD, LVEF 40-45% at that time 4. Repeat cath in Apr 2020 due to recurrent chest pain, revealing patent stents to the LAD and non obstructive disease. LVEF 45-50% at that time 5. Dyslipidemia Allergies Allergy/AdvReac Type Severity Reaction Status Date / Time hydrocodone Allergy Intermediate Hives Verified 06/15/21 11:52 milk Allergy Intermediate Hives Verified 06/15/21 11:52 pine nut Allergy Intermediate Hives Verified 06/15/21 11:52 Home Medications Medication Instructions Recorded Confirmed Type atorvastatin 80 mg tablet (Lipitor) 80 mg PO HS 03/29/18 06/15/21 History famotidine 20 mg tablet (Pepcid) 20 mg PO BID 12/26/19 06/15/21 History oxybutynin chloride 5 mg tablet 5 mg PO DAILY 12/26/19 06/15/21 History nitroglycerin 0.4 mg sublingual 0.4 mg SUBLINGUAL UD PRN 02/28/20 06/15/21 History tablet (Nitrostat) sertraline 100 mg tablet (Zoloft) 100 mg PO QAM 02/28/20 06/15/21 History lisinopril 5 mg tablet (Zestril) 5 mg PO BID #60 tab 05/06/20 06/15/21 Rx aspirin 81 mg tablet,delayed 81 mg PO QAM 12/26/20 06/15/21 History release (Aspirin Low Dose) metoprolol succinate 25 mg 25 mg PO BID 12/26/20 06/15/21 History tablet,extended release 24 hr (Toprol XL) pantoprazole 20 mg tablet,delayed 20 mg PO DAILY 12/26/20 06/15/21 History release (Protonix) gabapentin 100 mg capsule 200 mg PO TID 06/15/21 06/15/21 History metformin 500 mg tablet,extended 500 mg PO BIDM 06/15/21 06/15/21 History release 24 hr torsemide 10 mg tablet 10 mg PO DAILY 06/15/21 06/15/21 History Patient History Medical History Anemia Arthritis CAD (coronary artery disease) 02/2020-DORIAN x2 to mid LAD 04/2020 cardiac cath demonstrated patent stents and nonobstructive disease Depression Diabetic polyneuropathy DMII (diabetes mellitus, type 2) GERD (gastroesophageal reflux disease) HTN (hypertension) Ischemic cardiomyopathy DAVID (obstructive sleep apnea) STEMI (ST elevation myocardial infarction) Surgical History History of appendectomy History of carpal tunnel surgery Hx of cholecystectomy No pertinent past surgical history S/P arterial stent S/P FELA (total abdominal hysterectomy) Family History Other Deep vein thrombosis Social History Smoking Status: Former smoker Second Hand Exposure: No; Hx Alcohol Use: Yes Alcohol type: wine Hx Substance Use: No Preferred Language: German Communication Ability: Effective Visual Impairment: No Limitations Hearing Ability: Normal Learning Design Specialist Required: No Beliefs That Will Affect Care: None marital status: Current Living Situation: Spouse Current Living Situation Comment: The patient states that she lives with her child and their fianc. current occupational status: unemployed How many Children do You have: 3 Other Information That Helps Us Care for You: No Feels Safe at Home: Yes Safety Concerns: Feels Safe At This Time Assistive Devices: None Review of Systems Review of Systems: All systems reviewed & are unremarkable except as noted in HPI & below Physical Exam Constitutional: WD/WN, vitals as above Respiratory: no respiratory distress and no labored breathing Auscultation: + rales (Rales bilaterally at the bases) Cardiovascular: Rate/Rhythm: regular rhythm and + tachycardic Extremities: no edema Gastrointestinal (Abdomen): normal bowel sounds, soft, nontender, no hepatosplenomegaly Neurologic: PERRL, EOMI, accommodation nl, no face palsy, no dysarthria Results & Data ([facility]) Vital Signs (Past 12 Hours) Vital Signs Temp Pulse Resp BP BP Pulse Ox 06/15/21 15:00 165/97 H 06/15/21 14:57 101 H 13 180/104 H 92 06/15/21 12:00 82 17 154/87 H 92 06/15/21 11:44 86 L 06/15/21 11:35 96 06/15/21 11:30 95 H 21 100 06/15/21 11:20 99 06/15/21 11:00 100 H 23 98 06/15/21 10:35 104 H 22 100 06/15/21 09:55 36.7 C 105 H 20 163/92 H 85 L Diagnostic Findings EKG performed earlier today 06/15/2021, 9:55 AM, sinus tachycardia 102 bpm, bifascicular block pattern with right bundle branch block, left anterior fascicular block, no significant repolarization changes, compared to the prior tracing January 02, 2021, bifascicular block pattern is now present, however this has been intermittent finding noted in the past. Summary of ttecho performed today, 06/15/21 and reviewed personally: Sinus tachycardia with IVCD present with rate of 100 bpm during the echocardiogram. There is mild concentric left ventricular hypertrophy. Ther is severe hypokinesis of the apical anterior wall, mid anteroseptum, apical septum, and apical lateral wall. There akinesis of the apical cap. There is hypokinesis of the inferoseptum at the mid and apical levels. The remaining left ventricular myocardial wall segments are mildly hypokinetic. Left ventricular systolic function is severely reduced. The LV Ejection Fraction = 25-30%. The left atrium is mildly dilated. There is mild tricuspid regurgitation. Moderate pulmonary hypertension is present. The pulmonary artery systolic pressure is estimated to be 58 mm Hg. Diastolic dysfunction, Grade III (restrictive pattern), consistent with markedly increased left atrial pressure. Compared to the images obtained at the time of the prior study dated 12/26/20, the regional wall motion abnormalities are similar however heart rate was 70 bpm at that time. There has been interval development of grade III diastolic dysfunction with Doppler evidence of elevated left sided filling pressures. Moder pulmonary hypertension is also now present consistent with elevated filling pressures.
[2021-06-15] MEDS ORDERED: ENOXAPARIN INJ 40 MG/0.4 ML SYR SQ SCH (16:00)
[2021-06-15] MEDS: GABAPENTIN 100 MG CAP PO SCH ×2 (16:29→22:07)
[2021-06-15] MEDS: FUROSEMIDE 40 MG TAB PO SCH (16:30)
[2021-06-15] MEDS: INSULIN ASPART PER UNIT SC SCH ×2 (16:33→22:06)
--- NOTE | 2021-06-15 16:36 | Pharmacy Report ---
Pharmacy Glycemic Short Note 2 - Date of Service June 15, 2021 - Glycemic Short BSG Results (Last 24 hours): 06/15/21 06/15/21 10:22 15:34 Glucose 303 H* POC Glucose 210 H OUTPATIENT ANTIDIABETIC REGIMEN: * Metformin ER 500 mg PO BIDM * HbA1c pending ASSESSMENT: * 65 yo F admitted secondary to ADHF. Pharmacy has been consulted to assist with inpatient glycemic management. * BSG upon arrival to the floor was 210 mg/dL. Likely elevated due to stress. * Will start Novolog based on weight/stress of 2-3. * Will give a one time dose of Lantus for basal coverage given hyperglycemia. Of note, patient was previously on insulin as an outpatient. PLAN FOR INPATIENT GLYCEMIC CONTROL: * Hold outpatient oral diabetes medications * Basal insulin * Lantus 15 units SC x 1 * Bolus insulin * NovoLog per scale ACHS or Q6hrs while NPO * Goal Range: Low 110 mg/dL - High 140 mg/dL * Correction Factor: 25 mg/dL/unit * Nutritional / Prandial insulin per carb ratio of 1 unit per 8 grams CHO consumed
[2021-06-15] MEDS: MAGNESIUM SULFATE / D5W 1 GM/100 ML BAG IV SCH ×2 (16:41→22:06)
[2021-06-15] MEDS ORDERED: LANTUS PER UNIT CHARGE SQ ONE (16:45)
[2021-06-15] MEDS: NITROGLYCERIN 2% OINTMENT 30GM TUBE EXT SCH ×2 (17:03→22:49)
[2021-06-15] MEDS ORDERED: Heparin IV Adult Wt-Based Standard WITH Bolus Protocol IV STA (17:49)
[2021-06-15] MEDS ORDERED: Heparin IV Adult Wt-Based Standard *NO* Bolus Protocol IV ONE (18:00)
[2021-06-15] MEDS ORDERED: HEPARIN SOD (PORCINE) 1000 UNIT/ML IV ONE (18:05)
[2021-06-15] MEDS ORDERED: HEPARIN SODIUM/DEXTROSE 25,000 UNITS/500 ML BAG IV SCH (18:15)
[2021-06-15] MEDS ORDERED: lisinopril 5 MG TAB PO SCH (21:00)
[2021-06-15] MEDS: ATORVASTATIN 40 MG TAB PO SCH (22:08)
[2021-06-15] MEDS: METOPROLOL SUCC 25MG EXT REL TAB PO SCH (22:08)
[2021-06-15] MEDS: FAMOTIDINE 20 MG TAB PO SCH (22:11)
[2021-06-16 01:05] LABS: Partial Thromboplastin Ratio 1.8
[2021-06-16 01:07] LABS: Partial Thromboplastin Time 50.8 Seconds (21.0-31.0)
[2021-06-16] MEDS: NITROGLYCERIN 2% OINTMENT 30GM TUBE EXT SCH ×4 (04:00→22:00)
[2021-06-16 06:39] LABS: Hematocrit (blood only) 32.4 % (37-47); Hemoglobin 10.5 g/dL (12.0-16.0); Mean Corpuscular Hemoglobin 29.7 pg (25-34); Mean Corpuscular Hgb Conc 32.4 g/dL (32-36); Mean Corpuscular Volume 91.8 fL (80-100); Mean Platelet Volume 10.4 fL (7.4-10.4); Platelet Count 211 K/uL (130-400); RDW Coefficient of Variation 13.9 % (11.5-14.5); Red Blood Count 3.53 M/uL (4.2-5.4); White Blood Count 8.02 K/uL (4.8-10.8)
[2021-06-16 07:04] LABS: BUN Creatinine Ratio 19.5 (10-20); Calcium 8.9 mg/dl (8.5-10.1); Creatinine Clr Calc Pharmacy 54.5 ml/min; Est GFR (African American) 59.9 ml/min; Est GFR (Non-African American) 51.7 ml/min
[2021-06-16 07:16] LABS: Estimated Average Glucose 194 mg/dl; Hemoglobin A1C 8.4 % (4.5-5.6)
[2021-06-16] MEDS: ASPIRIN 81 MG ECTAB PO SCH (07:44)
[2021-06-16] MEDS: FAMOTIDINE 20 MG TAB PO SCH ×2 (07:44→20:00)
[2021-06-16] MEDS: FUROSEMIDE 40 MG TAB PO SCH (07:45)
[2021-06-16] MEDS: METOPROLOL SUCC 25MG EXT REL TAB PO SCH ×2 (07:45→20:01)
[2021-06-16] MEDS: GABAPENTIN 100 MG CAP PO SCH ×3 (07:45→20:03)
[2021-06-16] MEDS: SERTRALINE HCL 100 MG TABLET PO SCH (07:46)
[2021-06-16] MEDS: PANTOprazole 40 MG TAB PO SCH (07:46)
[2021-06-16] MEDS: OXYBUTYNIN CHLORIDE 5 MG TAB PO SCH (07:46)
--- NOTE | 2021-06-16 08:36 | Cardiology Progress Note ---
Date of Service June 16, 2021 Assessment & Plan (1) Acute on chronic systolic HF (heart failure): (2) Non-ST elevation (NSTEMI) myocardial infarction: (3) CAD (coronary artery disease): (4) Ischemic cardiomyopathy: (5) Bifascicular block: (6) Anemia: (7) DMII (diabetes mellitus, type 2): Plan: 65-year-old female admitted with acute on chronic heart failure with flash pulmonary edema and NSTEMI. Echocardiogram demonstrated decline in LV systolic function with apical akinesis. Symptoms have significantly improved with IV diuretic therapy, afterload reduction, and supplemental oxygen. Recommend continue intravenous heparin. Opponent peaking at 11.2 suggesting possible plaque rupture event versus demand ischemia in the setting of acute heart failure and hypoxia. She is hemodynamically stable without symptoms currently. Recommend cardiac catheterization with coronary angiography prior to discharge. Continue topical nitrates for afterload reduction. Add clopidogrel 300 mg x 1 now then 75 mg daily. Risk versus benefit of repeat cardiac catheterization discussed. Patient agreeable to procedure. Plan n.p.o. except medications after midnight on Friday in anticipation of procedure Friday06/18/2021. Admission and Anticipated Discharge Date Admission Date: June 15, 2021 Subjective 65-year-old female present to the emergency department 06/15/2021 with shortness of breath. That evening she had gone to sleep and was feeling fine. In the morning she developed some diarrhea, cough, felt hot and nauseous. One episode of vomiting reported. Shortness of breath developed at the same time which became progressive. States that she feels like her lungs are filled with fluid. Hypoxic in route to ER with SaO2 of 85% on room air. Chest x-ray revealing pulmonary edema. Troponin trending up to 11 overnight. Repeat troponin this a.m. 7.38. Patient reports "my torsemide did not work all week" prior to admission. Noted some mildly progressive edema over left lower extremity which has resolved. Fluid balance -1.9 L. Renal function remains stable this morning. She is feeling much better. Lying supine and resting comfortably. Oxygen saturation has improved. No recurrent arm discomfort or nausea. Intravenous heparin infusing. A.m. labs demonstrate stable chronic anemia. Review of Systems Review of Systems: All systems reviewed & are unremarkable except as noted in Subjective Physical Exam Constitutional: well nourished; no acute distress Respiratory: normal respiratory effort; no respiratory distress and no labored breathing Auscultation: + diminished lung sounds (Bases bilateral) and + rales (Right base); no rhonchi and no wheezes Cardiovascular: Rate/Rhythm: regular rate Heart Sounds: normal S1 and normal S2; no murmur Vessels: + JVD and radial pulses present; no carotid bruit Extremities: + edema (Trace left lower extremity edema) Gastrointestinal (Abdomen): Inspection/Auscultation: abdomen normal to inspection and normal bowel sounds; abdomen not distended Percussion/Palpation: abdomen soft; abdomen nontender, no guarding and abdomen not rigid Neurologic: CN's II-XI intact bilaterally and moves all extremities; no focal motor deficits Motor/Sensory: no tremor Psychiatric: A+Ox3, euthymic affect Results & Data ([facility]) Vital Signs (Past 12 Hours) Vital Signs Temp Pulse Pulse Resp BP Pulse Ox 06/16/21 08:06 36.5 C 90 18 114/79 97 06/16/21 03:27 36.8 C 74 20 119/72 95 06/15/21 23:50 81 06/15/21 22:25 36.5 C 78 16 127/68 96
[2021-06-16] MEDS ORDERED: CLOPIDOGREL BISULFATE 300 MG TAB PO STA (09:33)
[2021-06-16] MEDS ORDERED: INSULIN GLARGINE SOLOSTAR 100 UNITS/ML 3 ML PEN SC SCH (10:45)
--- NOTE | 2021-06-16 10:51 | Pharmacy Report ---
Pharmacy Glycemic Short Note 2 - Date of Service June 16, 2021 - Glycemic Short BSG Results (Last 24 hours): 06/15/21 06/15/21 06/15/21 10:22 15:34 20:27 Glucose 303 H* POC Glucose 210 H 160 H 06/16/21 06/16/21 06:16 07:21 Glucose 166 H POC Glucose 178 H OUTPATIENT ANTIDIABETIC REGIMEN: * Metformin ER 500 mg PO BIDM * HbA1c 8.4% 06/16/21 * Note, per [facility] clinic, pt with intolerances to Tradjenta, Ozempic, Jardiance, and high dose metformin ASSESSMENT: 06/16/21 * Fasting BSG 178mg/dl, pt had 15 units basal insulin yesterday, A1c 8.4%, continue with Lantus 15 units daily. * RN held CF this morning d/t NPO status, spoke w/ him and educated to NOT hold CF w/o an order as stated in label comments and per glycemic consult. * BSG now up to 201mg/dl prior to lunch. * Continue CF/CR at this time, titrate to goal BSG. 06/15/21 * 65 yo F admitted secondary to ADHF. Pharmacy has been consulted to assist with inpatient glycemic management. * BSG upon arrival to the floor was 210 mg/dL. Likely elevated due to stress. * Will start Novolog based on weight/stress of 2-3. * Will give a one time dose of Lantus for basal coverage given hyperglycemia. Of note, patient was previously on insulin as an outpatient. PLAN FOR INPATIENT GLYCEMIC CONTROL: * Hold outpatient oral diabetes medications * Basal insulin * Lantus 15 units SC daily * Bolus insulin * NovoLog per scale ACHS or Q6hrs while NPO * Goal Range: Low 110 mg/dL - High 140 mg/dL * Correction Factor: 25 mg/dL/unit * Nutritional / Prandial insulin per carb ratio of 1 unit per 8 grams CHO consumed
[2021-06-16] MEDS: INSULIN ASPART PER UNIT SC SCH ×4 (10:55→20:24)
--- NOTE | 2021-06-16 12:21 | Electrocardiogram Report ---
Test Reason : Blood Pressure : / mmHG Vent. Rate : 092 BPM Atrial Rate : 092 BPM P-R Int : 126 ms QRS Dur : 130 ms QT Int : 428 ms P-R-T Axes : 036 -79 043 degrees QTc Int : 529 ms Normal sinus rhythm with sinus arrhythmia Right bundle branch block Left anterior fascicular block Bifascicular block Septal infarct (cited on or before 16-JUN-2021) T wave abnormality, consider anterolateral ischemia Abnormal ECG When compared with ECG of 15-JUN-2021 09:55, No significant change Confirmed by Eze Marcus ([id number]) on 06/16/2021 12:21:20 PM Referred By: REFERRED SELF Confirmed By:Eze Marcus
[2021-06-16 13:05] LABS: Partial Thromboplastin Ratio 2.1
[2021-06-16 13:18] LABS: Partial Thromboplastin Time 57.1 Seconds (21.0-31.0)
--- NOTE | 2021-06-16 14:36 | Hospitalist Progress Note ---
Date of Service June 16, 2021 Assessment & Plan (1) Acute respiratory failure with hypoxia: (2) Acute on chronic systolic HF (heart failure): (3) Ischemic cardiomyopathy: (4) CAD (coronary artery disease): Plan: Acute on chronic systolic and diastolic heart failure NSTEMI-POA Hypoxia -H/O CAD- DORIAN x2 to mid LAD in February 2020, cardiac cath April 2020 demonstrated patent stents and nonobstructive disease -CXR:Cardiomegaly with interval progression of the moderate pulmonary edema. Trace bilateral pleural effusions. -Last Echo 02/2021-EF 45% -ECHO: Mild concentric LVH, severe hypokinesis of the apical anterior wall, mid anteroseptum, apical septum, apical lateral wall. Akinesis of the apical. Hypokinesis of the inferoseptum at the mid and apical levels. Remaining left ventricular myocardial wall segments are mildly hypokinetic. Left ventricle systolic function is severely reduced. EF 25 to 30%. Left atrium is mildly dilated. Mild tricuspid regurgitation. Moderate pulmonary hypertension. Pulmonary artery systolic pressure estimated at 58 mmHg. Grade 2 diastolic dysfunction. --Continue IV diuretics Continue supplemental oxygen as needed Continue IV heparin Will need cardiac catheterization eventually Continue topical nitrates, aspirin, statin, Plavix, metoprolol Appreciate cardiology input Monitor I's and O's, daily weight (5) DMII (diabetes mellitus, type 2): Plan: Hgb A1c 7.4 11/2020 Hold Metformin Utilize Lantus and NovoLog per protocol while hospitalized Glycemic pharmacy consult Hypomagnesemia Replete electrolytes as needed (6) Hypertension: Plan: BP stable Continue current medications Monitor (7) DVT prophylaxis: Plan: IV heparin Admission and Anticipated Discharge Date Admission Date: June 15, 2021 Subjective Patient is seen and examined at bedside States dyspnea better today Transient dizziness earlier today which resolved currently Denies any chest pain, shortness of breath, dizziness, nausea, abdominal pain Currently on IV heparin Denies any bleeding issues Review of Systems Review of Systems: All systems reviewed & are unremarkable except as noted in Subjective Physical Exam Physical Exam: Physical Exam: Vitals signs as noted above General Appearance:Moderately built and nourished, no apparent distress Head: normocephalic, Atraumatic Eyes: normal inspection, EOMI Neck: supple, Trachea midline Respiratory/Chest: Decreased breath sounds, CTA Cardiovascular: S1, S2, No murmur Abdomen/GI:Soft, Non tender, Bowel sounds present Extremities/Musculoskeletal:normal inspection, Trace B/L LE edema Neurologic/Psych:AAOX3, grossly no focal neurological deficits Skin: normal color, warm Results & Data Results & Data ([facility]) Vital Signs (Past 12 Hours) Vital Signs Temp Pulse Pulse Resp BP Pulse Ox 06/16/21 11:07 36.6 C 71 16 122/64 95 06/16/21 08:06 36.5 C 90 18 114/79 97 06/16/21 08:00 81 06/16/21 03:27 36.8 C 74 20 119/72 95 Laboratory Results Short CBC 06/16/21 Range/Units 06:16 WBC 8.02 (4.8-10.8) K/uL Hgb 10.5 L (12.0-16.0) g/dL Hct 32.4 L (37-47) % Plt Count 211 (130-400) K/uL BMP 06/16/21 06:16 Sodium 136 Potassium 4.0 Chloride 100 Carbon Dioxide 30 BUN 22 Creatinine 1.13 Glucose 166 H Calcium 8.9 Cardiac Enzymes 06/15/21 06/15/21 06/16/21 Range/Units 15:50 22:21 06:16 Troponin I 6.90 H* 11.16 H* 7.38 H* (0-0.04) ng/ml 06/16/21 Range/Units 12:16 Troponin I 4.88 H* (0-0.04) ng/ml (1) Hypertension Hypertension type: essential hypertension Qualified Code(s): I10 - Essential (primary) hypertension
[2021-06-16] MEDS: HEPARIN SODIUM/DEXTROSE 25,000 UNITS/500 ML BAG IV SCH (14:38)
[2021-06-16] MEDS ORDERED: FUROSEMIDE 40 MG/4 ML VIAL IV SCH (17:00)
[2021-06-16] MEDS: ATORVASTATIN 40 MG TAB PO SCH (20:01)
[2021-06-17] MEDS: NITROGLYCERIN 2% OINTMENT 30GM TUBE EXT SCH ×2 (04:00→09:25)
[2021-06-17 07:06] LABS: Hematocrit (blood only) 30.6 % (37-47); Mean Corpuscular Hgb Conc 32.7 g/dL (32-36); Mean Corpuscular Volume 91.9 fL (80-100); Mean Platelet Volume 9.9 fL (7.4-10.4); Platelet Count 186 K/uL (130-400); RDW Coefficient of Variation 13.7 % (11.5-14.5); RDW Standard Deviation 45.6 fL (36.4-46.3); Red Blood Count 3.33 M/uL (4.2-5.4); White Blood Count 6.99 K/uL (4.8-10.8)
[2021-06-17 07:30] LABS: BUN Creatinine Ratio 23.3 (10-20); Calcium 8.7 mg/dl (8.5-10.1); Creatinine Clr Calc Pharmacy 45.4 ml/min; Magnesium 1.9 mg/dl (1.7-2.4); Potassium 4.4 mmol/L (3.5-5.1)
[2021-06-17 07:33] LABS: Partial Thromboplastin Ratio 2.2
[2021-06-17 07:37] LABS: Partial Thromboplastin Time 60.8 Seconds (21.0-31.0)
[2021-06-17] MEDS ORDERED: INSULIN GLARGINE SOLOSTAR 100 UNITS/ML 3 ML PEN SC SCH (07:45)
[2021-06-17] MEDS: INSULIN ASPART PER UNIT SC SCH ×4 (07:48→21:07)
[2021-06-17] MEDS: PANTOprazole 40 MG TAB PO SCH (09:01)
[2021-06-17] MEDS: SERTRALINE HCL 100 MG TABLET PO SCH (09:01)
[2021-06-17] MEDS: OXYBUTYNIN CHLORIDE 5 MG TAB PO SCH (09:01)
[2021-06-17] MEDS: CLOPIDOGREL BISULFATE 75 MG TAB PO SCH (09:01)
[2021-06-17] MEDS: GABAPENTIN 100 MG CAP PO SCH ×3 (09:01→21:10)
[2021-06-17] MEDS: ASPIRIN 81 MG ECTAB PO SCH (09:01)
[2021-06-17] MEDS: METOPROLOL SUCC 25MG EXT REL TAB PO SCH ×2 (09:01→21:10)
[2021-06-17] MEDS: FAMOTIDINE 20 MG TAB PO SCH ×2 (09:02→21:10)
--- NOTE | 2021-06-17 09:31 | Cardiology Progress Note ---
Date of Service June 17, 2021 Assessment & Plan (1) Acute on chronic systolic HF (heart failure): (2) Non-ST elevation (NSTEMI) myocardial infarction: (3) CAD (coronary artery disease): (4) Ischemic cardiomyopathy: (5) Bifascicular block: (6) Anemia: (7) DMII (diabetes mellitus, type 2): (8) Acute renal insufficiency: Plan: 65-year-old female admitted with acute on chronic heart failure with flash pulmonary edema and NSTEMI. Echocardiogram demonstrated decline in LV systolic function with apical akinesis. Symptoms have significantly improved with IV diuretic therapy, afterload reduction, and supplemental oxygen. Creatinine trending upward today. Discontinue IV diuretic therapy. Repeat BMP in a.m. Continue intravenous heparin with orders to hold medication at 7 AM tomorrow in anticipation of cardiac catheterization. Clopidogrel added yesterday in addition to aspirin and heparin therapy. Discontinue topical nitrates. Risk versus benefit of repeat cardiac catheterization discussed. Patient agreeable to procedure. Plan n.p.o. except medications after midnight anticipation of procedure tomorrow morning 06/18/2021. Admission and Anticipated Discharge Date Admission Date: June 15, 2021 Subjective Patient seen and examined the bedside. Feeling better today. States "I feel wonderful". Creatinine trending upward to 1.29. Fluid balance -1.9 L. Denies orthopnea or PND. Telemetry reveals sinus rhythm with sinus arrhythmia. Offers no concerns/complaints. Review of Systems Review of Systems: All systems reviewed & are unremarkable except as noted in Subjective Physical Exam Constitutional: well nourished; no acute distress Respiratory: normal respiratory effort; no respiratory distress and no labored breathing Auscultation: + diminished lung sounds (Bases bilateral) and + rales (Right base); no rhonchi and no wheezes Cardiovascular: Rate/Rhythm: regular rate Heart Sounds: normal S1 and normal S2; no murmur Vessels: + JVD and radial pulses present; no carotid bruit Extremities: + edema (Trace left lower extremity edema) Gastrointestinal (Abdomen): Inspection/Auscultation: abdomen normal to inspec tion and normal bowel sounds; abdomen not distended Percussion/Palpation: abdomen soft; abdomen nontender, no guarding and abdomen not rigid Neurologic: CN's II-XI intact bilaterally and moves all extremities; no focal motor deficits Motor/Sensory: no tremor Psychiatric: A+Ox3, euthymic affect Results & Data ([facility]) Vital Signs (Past 12 Hours) Vital Signs Temp Pulse Pulse Resp BP Pulse Ox 06/17/21 08:00 36.8 C 95 H 22 111/67 94 06/17/21 03:57 36.7 C 91 H 18 137/78 94 06/16/21 23:16 97 H 06/16/21 23:09 36.6 C 96 H 24 115/63 95
--- NOTE | 2021-06-17 10:54 | Electrocardiogram Report ---
Test Reason : Blood Pressure : / mmHG Vent. Rate : 081 BPM Atrial Rate : 081 BPM P-R Int : 132 ms QRS Dur : 134 ms QT Int : 414 ms P-R-T Axes : 027 -81 119 degrees QTc Int : 480 ms Sinus rhythm with marked sinus arrhythmia Right bundle branch block Left anterior fascicular block Bifascicular block Septal infarct (cited on or before 16-JUN-2021) T wave abnormality, consider lateral ischemia Abnormal ECG When compared with ECG of 16-JUN-2021 05:58, Serial changes of Septal infarct Present Confirmed by Eze Marcus ([id number]) on 06/17/2021 10:54:36 AM Referred By: REFERRED SELF Confirmed By:Eze Marcus
[2021-06-17] MEDS: HEPARIN SODIUM/DEXTROSE 25,000 UNITS/500 ML BAG IV SCH (12:04)
--- NOTE | 2021-06-17 14:46 | Hospitalist Progress Note ---
Date of Service June 17, 2021 Assessment & Plan (1) Acute respiratory failure with hypoxia: (2) Acute on chronic systolic HF (heart failure): (3) Ischemic cardiomyopathy: (4) CAD (coronary artery disease): Plan: Acute on chronic systolic and diastolic heart failure NSTEMI-POA Hypoxia -H/O CAD- DORIAN x2 to mid LAD in February 2020, cardiac cath April 2020 demonstrated patent stents and nonobstructive disease -CXR:Cardiomegaly with interval progression of the moderate pulmonary edema. Trace bilateral pleural effusions. -Last Echo 02/2021-EF 45% -ECHO: Mild concentric LVH, severe hypokinesis of the apical anterior wall, mid anteroseptum, apical septum, apical lateral wall. Akinesis of the apical. Hypokinesis of the inferoseptum at the mid and apical levels. Remaining left ventricular myocardial wall segments are mildly hypokinetic. Left ventricle systolic function is severely reduced. EF 25 to 30%. Left atrium is mildly dilated. Mild tricuspid regurgitation. Moderate pulmonary hypertension. Pulmonary artery systolic pressure estimated at 58 mmHg. Grade 2 diastolic dysfunction. --Continue IV diuretics Continue supplemental oxygen as needed Continue IV heparin Topical nitrates discontinued Continue aspirin, statin, Plavix, metoprolol Appreciate cardiology input Monitor I's and O's, daily weight Diuresed well Plan for cardiac catheterization tomorrow (5) DMII (diabetes mellitus, type 2): Plan: Hgb A1c 7.4 11/2020 Hold Metformin Utilize Lantus and NovoLog per protocol while hospitalized Glycemic pharmacy consult Hypomagnesemia Replete electrolytes as needed (6) Hypertension: Plan: BP stable Continue current medications Monitor (7) DVT prophylaxis: Plan: IV heparin Admission and Anticipated Discharge Date Admission Date: June 15, 2021 Subjective Patient is seen and examined at bedside Doing well today Dyspnea resolved Denies any chest pain, shortness of breath, dizziness, nausea, abdominal pain On IV heparin Plan for cardiac catheterization tomorrow Review of Systems Review of Systems: All systems reviewed & are unremarkable except as noted in Subjective Physical Exam Physical Exam: Physical Exam: Vitals signs as noted above General Appearance:Moderately built and nourished, no apparent distress Head: normocephalic, Atraumatic Eyes: normal inspection, EOMI Neck: supple, Trachea midline Respiratory/Chest: Decreased breath sounds, CTA Cardiovascular: S1, S2, No murmur Abdomen/GI:Soft, Non tender, Bowel sounds present Extremities/Musculoskeletal:normal inspection, Trace B/L LE edema Neurologic/Psych:AAOX3, grossly no focal neurological deficits Skin: normal color, warm Results & Data Results & Data ([facility]) Vital Signs (Past 12 Hours) Vital Signs Temp Pulse Pulse Resp BP Pulse Ox 06/17/21 11:57 36.6 C 91 H 19 119/61 96 06/17/21 10:43 88 06/17/21 08:00 36.8 C 95 H 22 111/67 94 06/17/21 03:57 36.7 C 91 H 18 137/78 94 Laboratory Results Short CBC 06/17/21 Range/Units 06:49 WBC 6.99 (4.8-10.8) K/uL Hgb 10.0 L (12.0-16.0) g/dL Hct 30.6 L (37-47) % Plt Count 186 (130-400) K/uL BMP 06/17/21 06:49 Sodium 136 Potassium 4.4 Chloride 100 Carbon Dioxide 31 BUN 30 H Creatinine 1.29 H Glucose 222 H Calcium 8.7 (1) Hypertension Hypertension type: essential hypertension Qualified Code(s): I10 - Essential (primary) hypertension
[2021-06-17] MEDS: ATORVASTATIN 40 MG TAB PO SCH (21:10)
[2021-06-18] MEDS ORDERED: Nursing to Pharmacy Communication SCH (06:45)
[2021-06-18] MEDS ORDERED: INSULIN ASPART PER UNIT SC SCH (06:45)
[2021-06-18 06:57] LABS: BUN Creatinine Ratio 30.7 (10-20); Calcium 8.7 mg/dl (8.5-10.1); Creatinine Clr Calc Pharmacy 58.3 ml/min; Est GFR (African American) 68.6 ml/min; Est GFR (Non-African American) 59.2 ml/min; Potassium 4.2 mmol/L (3.5-5.1)
[2021-06-18] MEDS: ASPIRIN 81 MG ECTAB PO SCH (09:09)
[2021-06-18] MEDS: CLOPIDOGREL BISULFATE 75 MG TAB PO SCH (09:09)
[2021-06-18] MEDS: OXYBUTYNIN CHLORIDE 5 MG TAB PO SCH (09:10)
[2021-06-18] MEDS: METOPROLOL SUCC 25MG EXT REL TAB PO SCH ×2 (09:10→20:55)
[2021-06-18] MEDS: GABAPENTIN 100 MG CAP PO SCH ×3 (09:10→20:56)
[2021-06-18] MEDS: PANTOprazole 40 MG TAB PO SCH (09:11)
[2021-06-18] MEDS: SERTRALINE HCL 100 MG TABLET PO SCH (09:11)
--- NOTE | 2021-06-18 09:13 | Cardiology Progress Note ---
Date of Service June 18, 2021 Assessment & Plan (1) Acute on chronic systolic HF (heart failure): (2) Non-ST elevation (NSTEMI) myocardial infarction: (3) CAD (coronary artery disease): (4) Ischemic cardiomyopathy: (5) Bifascicular block: (6) Anemia: (7) DMII (diabetes mellitus, type 2): (8) Acute renal insufficiency: Plan: 65-year-old female admitted with acute on chronic heart failure with flash pulmonary edema and NSTEMI. Echocardiogram demonstrated decline in LV systolic function with apical akinesis. Symptoms have significantly improved with IV diuretic therapy, afterload reduction, and supplemental oxygen. Serum creatinine has trended downward. IV heparin will be placed on hold this morning in anticipation of left heart catheterization with coronary angiography. Risk versus benefit of procedure reviewed. Patient agreeable to proceed. Further recommendations pending result of procedure. Admission and Anticipated Discharge Date Admission Date: June 15, 2021 Subjective Patient seen and examined at the bedside. Feeling well this morning. No orthopnea or PND overnight. Telemetry reveals sinus rhythm with sinus arrhythmia. No recurrent chest or arm discomfort. IV heparin placed on hold this morning in anticipation of cardiac catheterization. Review of Systems Review of Systems: All systems reviewed & are unremarkable except as noted in Subjective Physical Exam Constitutional: well nourished; no acute distress Respiratory: normal respiratory effort; no respiratory distress and no labored breathing Auscultation: + diminished lung sounds (Bases bilateral) and + rales (Right base); no rhonchi and no wheezes Cardiovascular: Rate/Rhythm: regular rate Heart Sounds: normal S1 and normal S2; no murmur Vessels: + JVD and radial pulses present; no carotid bruit Extremities: + edema (Trace left lower extremity edema) Gastrointestinal (Abdomen): Inspection/Auscultation: abdomen normal to inspection and normal bowel sounds; abdomen not distended Percussion/Palpation: abdomen soft; abdomen nontender, no guarding and abdomen not rigid Neurologic: CN's II-XI intact bilaterally and moves all extremities; no focal motor deficits Motor/Sensory: no tremor Psychiatric: A+Ox3, euthymic affect Results & Data ([facility]) Vital Signs (Past 12 Hours) Vital Signs Temp Pulse Pulse Resp BP Pulse Ox 06/18/21 07:16 36.4 C L 88 17 134/82 98 03/28/22 03:37 36.6 C 75 16 123/67 96 06/17/21 23:34 36.5 C 87 17 119/63 95 06/17/21 22:30 87
[2021-06-18] MEDS: INSULIN GLARGINE SOLOSTAR 100 UNITS/ML 3 ML PEN SC SCH (09:28)
[2021-06-18] MEDS: FAMOTIDINE 20 MG TAB PO SCH ×2 (10:22→20:55)
--- NOTE | 2021-06-18 11:37 | Pre Anesthesia Assessment ---
Date of Service June 18, 2021 Pre Sedation Assessment Vital Signs Temp Pulse Pulse Resp BP BP Pulse Ox 06/19/21 11:47 36.7 C 89 18 153/99 H 98 06/19/21 03:02 36.6 C 65 15 118/68 99 06/19/21 01:57 68 06/18/21 23:09 36.5 C 77 17 135/80 98 06/18/21 19:10 36.8 C 88 18 117/74 95 06/18/21 18:10 36.9 C 88 19 110/73 96 06/18/21 17:10 37.1 C 77 16 113/77 97 06/18/21 16:10 36.9 C 81 18 111/64 97 06/18/21 15:10 37.1 C 86 16 110/68 97 06/18/21 14:40 36.8 C 83 15 118/78 96 06/18/21 14:10 36.9 C 80 19 126/84 96 06/18/21 13:55 36.6 C 68 14 132/83 93 06/18/21 13:40 37.2 C 65 18 126/83 96 06/18/21 13:32 60 18 117/65 97 06/18/21 13:17 85 17 116/71 98 Cardiovascular + regular rate and + regular rhythm + S1 normal and + S2 normal + femoral pulses present and + radial pulses present; no JVD and no carotid bruit no edema Respiratory + respiratory effort normal; no respiratory distress and no labored breathing + clear to auscultation bilaterally; no crackles, no rales, no rhonchi and no wheezes Pre-Sedation Airway Assessment Smoking Status: Former smoker Hx Sleep Apnea: Yes Hx Difficult Intubation: No Mallampati Class: II ASA: ASA3 NPO Status Date of Last Intake of Fluids: 06/17/21 Date of Last Intake of Solid Food: 06/17/21 Procedure Planning Contraindications for Sedation: none Current Medications Reviewed: Yes Notes The planned sedation has been discussed with the patient. Informed Consent was obtained. I have identified the patient, determined the appropriateness of sedation and have assessed the patient immediately prior to the procedure. All medicine(s) and interventions are by my order.
[2021-06-18] MEDS ORDERED: ASPIRIN 81 MG CHEW ONE (11:48)
[2021-06-18] MEDS ORDERED: MIDAZOLAM HCL 1 MG/ML 2ML VIAL ONE (12:04)
[2021-06-18] MEDS ORDERED: niCARdipine HCL INJ 2.5 MG/ML 10 ML AMP ONE (12:04)
[2021-06-18] MEDS ORDERED: fentaNYL citrate 100 MCG/2 ML VIAL ONE (12:04)
[2021-06-18] MEDS ORDERED: HEPARIN (PORCINE) 1000 UNIT/ML 10 ML (CATH LAB USE ONLY) ONE (12:04)
[2021-06-18] MEDS ORDERED: NITROGLYCERIN/D5W 100MCG/ML 20ML SYR ONE (12:05)
--- NOTE | 2021-06-18 12:37 | Post Anesthesia Assessment ---
Date of Service June 18, 2021 Post Sedation Assessment Vital Signs Temp Pulse Pulse Resp BP BP Pulse Ox 06/19/21 11:47 36.7 C 89 18 153/99 H 98 06/19/21 03:02 36.6 C 65 15 118/68 99 06/19/21 01:57 68 06/18/21 23:09 36.5 C 77 17 135/80 98 06/18/21 19:10 36.8 C 88 18 117/74 95 06/18/21 18:10 36.9 C 88 19 110/73 96 06/18/21 17:10 37.1 C 77 16 113/77 97 06/18/21 16:10 36.9 C 81 18 111/64 97 06/18/21 15:10 37.1 C 86 16 110/68 97 06/18/21 14:40 36.8 C 83 15 118/78 96 06/18/21 14:10 36.9 C 80 19 126/84 96 06/18/21 13:55 36.6 C 68 14 132/83 93 06/18/21 13:40 37.2 C 65 18 126/83 96 06/18/21 13:32 60 18 117/65 97 06/18/21 13:17 85 17 116/71 98 Recovery Score Activity: Moves 4 extremities Respiration: Deep Breath/Cough Circulation: +/-20% PreAnes Value Consciousness: Arouseable (by name) Oxygen Saturation: O2 needed for >90% Discharge Sedation Level of Care: Phase I Post Sedation Plan On clinical assessment, the patient appears to have tolerated the sedation without complications. Patient is recovering as anticipated. Patient will continue to be monitored by nursing and may be discharged when sedation discharge criteria are met per below protocol. Upon Completions of procedure up to 15 minutes continue every 5 minute vital signs and the P.A.R. score; then discharge to a Phase I or Fast Track to Phase II per the following guidelines: * Discharge Patient to appropriate Phase II area if PAR is 8 or greater or return to pre- procedure baseline. The post - procedure orders will be as directed. * If PAR score is less than 8 or not return to pre-procedure baseline then patient will follow Phase I monitoring till PAR is reached for Phase II. The Phase I may be done in procedure room or may call to secure a Phase I area. * If naloxone or flumazenil are used for reversal, hold in Phase I for continued monitoring from when last reversal dose was given for a minimum of 60 minutes or longer pending the nurse and/or physician discretion of patient condition before discharge to Phase II. Please call the Sedation Physician to re-evaluate and complete post-note for discharge to Phase II area. Do NOT discharge from procedure sedation or Phase 1 until post- sedation evaluation note is complete by procedure /sedation MD Sedation Discharge Instructions to be given to the patient at discharge to home.
--- NOTE | 2021-06-18 12:42 | Cardiac Catheterization ---
Cardiac Cath Procedure Full Procedure Date June 18, 2021 Pre-Procedure Diagnosis Pre-Procedure Diagnosis: Non STEMI, CHF and Cardiomyopathy AUC Score AUC Score: 8 Post-Procedure Diagnosis Post-Procedure Diagnosis: Severe CAD and Normal Intracardiac Pressures Procedure(s) Performed Procedure(s) Performed: Coronary Angiography and Left Heart Cath Sheet Metal Installer Dimitris Bullock DO Mold Tooler(s) Mohinder LIFE SCIENCE TAXONOMIST Estimated Blood Loss Estimated Blood Loss: 5cc Medication(s) Medication(s): Fentanyl, Heparin, Lidocaine 1%, Nicardipine, Nitroglycerin and Versed Summary of Findings 60% in-stent stenosis near the distal end of the mid LAD stent followed by focal 80% mid LAD stenosis. Hemodynamics Rest Ao:: 90/51/68 Final Ao: 107/55/78 LV: 102/0/4 Recommendations Recommendations: PCI without planned CABG Specimens Specimens: None Radiation Exposure (mGy) 381 Contrast (mls) 40 Fluids (cc crystalloids) Fluids (cc crystalloids): 98 Nss Drains Drains: N/A Anesthesia Moderate sedation. Start 1214. End 1229. Sedation monitor: Irais HART Procedural Complication(s) None Disposition Patient remained in Contract Engineer for PCI of the LAD I attest to the content of the Intraoperative Record and any orders documented therein. Any exceptions are noted below. ACC Data: Contract Engineer Cardiac Status Clinical evaluation leading to the procedure 62-year-old female presented to the emergency department with flash pulmonary edema and left arm discomfort. Troponin trending up to 11. Treated with IV diuretic therapy, intravenous heparin, and dual antiplatelet therapy with clinical improvement. Cardiac catheterization recommended to define coronary anatomy with history of mid LAD stenting. CAD Presenation: Non STEMI Anginal Classification: CCS IV Heart Failure: Yes Cardiogenic Shock within 24 Hours: No Cardiac Arrest within 24 Hours: No Imaging Studies Past 6 Months: Yes Stress Studies Past 6 Months: No STEMI OR Non-STEMI Symptom Onset Date: 05/25/21 Symptom Onset Time: 07:00 Thrombolytics: No Coronary Anatomy Dominant: Right Left Main (% Stenosis): Distal (20%) LAD (% Stenosis): Proximal (Patent stent with 20% in-stent restenosis), Mid (Overlapping stents noted with distal 60% in-stent restenosis followed by focal 80% stenosis distal to the end of the stent.) and Distal (Mild diffuse luminal irregularities, 10-20%) D1 (% Stenosis): Ostial (30%) D2 (% Stenosis): Normal D3 (% Stenosis): Ostial (60% trivial vessel jailed by LAD stent) Circumflex (% Stenosis): Mid (20%) OM1 (% Stenosis): Distal (20% diffuse) RCA (% Stenosis): Mid (30% early mid at the level of acute marginal followed by a 30% late mid stenosis.) and Distal (10-20% diffuse) R PDA (% Stenosis): Proximal (Luminal irregularities, 10-20%) and Mid (Luminal irregularities, 10%) R PL1 (% Stenosis): Normal R PL2 (% Stenosis): Normal Ramus (% Stenosis): Ostial (70% trivial vessel) Diagnostic Physicians Name: Dimitris Bullock DO Closure Device Recommendations: PCI without planned CABG Intraprocedure Events Significant Disection: No Perforation: No
--- NOTE | 2021-06-18 13:15 | Post Anesthesia Assessment ---
Date of Service June 18, 2021 Post Sedation Assessment Vital Signs Temp Pulse Pulse Resp BP Pulse Ox 06/18/21 10:48 97.9 F 66 17 109/64 96 06/18/21 07:16 97.5 F L 88 17 134/82 98 06/18/21 03:37 97.9 F 75 16 123/67 96 06/17/21 23:34 97.7 F 87 17 119/63 95 06/17/21 22:30 87 06/17/21 20:07 98.2 F 82 20 133/77 95 06/17/21 16:00 98.1 F 90 18 118/66 97 06/17/21 15:10 92 H Recovery Score Activity: Moves 4 extremities Respiration: Deep Breath/Cough Circulation: +/-20% PreAnes Value Consciousness: Arouseable (by name) Oxygen Saturation: O2 needed for >90% Discharge Sedation Level of Care: Fast Track Phase II Post Sedation Plan On clinical assessment, the patient appears to have tolerated the sedation without complications. Patient is recovering as anticipated. Patient will continue to be monitored by nursing and may be discharged when sedation discharge criteria are met per below protocol. Upon Completions of procedure up to 15 minutes continue every 5 minute vital signs and the P.A.R. score; then discharge to a Phase I or Fast Track to Phase II per the following guidelines: * Discharge Patient to appropriate Phase II area if PAR is 8 or greater or return to pre- procedure baseline. The post - procedure orders will be as directed. * If PAR score is less than 8 or not return to pre-procedure baseline then patient will follow Phase I monitoring till PAR is reached for Phase II. The Phase I may be done in procedure room or may call to secure a Phase I area. * If naloxone or flumazenil are used for reversal, hold in Phase I for c ontinued monitoring from when last reversal dose was given for a minimum of 60 minutes or longer pending the nurse and/or physician discretion of patient condition before discharge to Phase II. Please call the Sedation Physician to re-evaluate and complete post-note for discharge to Phase II area. Do NOT discharge from procedure sedation or Phase 1 until post- sedation evaluation note is complete by procedure /sedation MD Sedation Discharge Instructions to be given to the patient at discharge to home.
[2021-06-18] MEDS ORDERED: NITROGLYCERIN SL 0.4 MG/TAB TAB SL PRN (13:25)
--- NOTE | 2021-06-18 13:25 | Cardiac Catheterization ---
[facility] Data: Bedspread Cutter Cardiac Status Clinical evaluation leading to the procedure CAD Presenation: Non STEMI Anginal Classification: CCS IV Heart Failure: Yes Cardiogenic Shock within 24 Hours: No Cardiac Arrest within 24 Hours: No Imaging Studies Past 6 Months: Yes Stress Studies Past 6 Months: No Diagnostic Physicians Name: Juan Francisco Szymanski MD Status: Elective Closure Device Percutaneous Entry Location: Radial Closure Device: Radial Band Recommendations: PCI without planned CABG PCI Indication: PCI for high risk Non-MARC Lesion Segment Name: mid LAD Culprit Artery: Yes Stenosis Prior to Rx (%): 90 Chronic Total Occlusion: No IVUS: No FFR: No Pre-Procedure CHRISTOPHER Flow: 2 Previously Treated Lesion: Timeframe: 1-2 years Treated with Stent: Yes In-Stent Restenosis: Yes In-Stent Thrombosis: No Stent Type: DORIAN Yes Lesion Complexity: Non-High/Non-C Lesion Length (mm): 18 Thrombus Present: Yes Bifurcation Lesion: No Guidewire Across Lesion: Stenosis Post-Procedure (%): 0 Post-Procedure CHRISTOPHER Wilbur w: 3 Devices(s) Deployed: Yes Yes Intraprocedure Events Significant Disection: No Perforation: No Cardiac Cath Procedure Full Procedure Date June 18, 2021 Pre-Procedure Diagnosis Pre-Procedure Diagnosis: Non STEMI, CHF and Cardiomyopathy AUC Score AUC Score: 8 Post-Procedure Diagnosis Post-Procedure Diagnosis: Severe CAD and Successful PCI Procedure(s) Performed Procedure(s) Performed: Coronary Angiography and Drug Eluting Stent Powersaw Supervisor Juan Francisco Szymanski MD Front Office Developer(s) Mohinder SALAS Estimated Blood Loss Estimated Blood Loss: 15 Medication(s) Medication(s): Clopidogrel, Fentanyl, Heparin, Nicardipine, Nitroglycerin and Versed Summary of Findings Indication: NSTEMI. History of prior PCI with do not overlapping drug-eluting stents to LAD Access: 6 Fr right radial art Catheters: EBU 3.5 guide Findings: For full details of patient's coronary angiography please see cath report dictated by Dr. Bullock. Briefly, patient found to have a severe stenosis involving distal aspect of prior mid LAD stent. Decision to proceed with PCI. -- PCI -- Antithrombotic therapy: Heparin, clopidogrel Procedure: Left main cannulated with EBU 3.5 guide Gis Specialist 50 wire passed across lesion into distal vessel Mid LAD lesion predilated with 2.5 compliant balloon Dilated lesion stented with 2.75 x 23 mm Xience drug-eluting Stent post-dilated with 3.0 noncompliant balloon IC vasodilators administered for spasm Post procedure CHRISTOPHER 3 flow, stent well expanded with minimal residual stenosis and no apparent cardiac complications. Arterial Closure: TR band Summary: 1. Successful PCI of mid LAD with single drug-eluting stent (2.75 x 23 mm Xience; postdilated with 3.0 NC) overlapping distal half of prior mid LAD stent. Recommendations: Restarted on clopidogrel on admission. Will transition to ticagrelor, reload with 180 mg this afternoon Continue dual-antiplatelet therapy for at least 1 year. Consider extended DAPT in the setting of overlapping stents. Consult cardiac Rehab Hemodynamics Rest Ao:: Final Ao: LV: -- Recommendations Recommendations: PCI without planned CABG Specimens Specimens: None Radiation Exposure (mGy) 1212 Contrast (mls) 100 Fluids (cc crystalloids) Fluids (cc crystalloids): 120 Drains Drains: N/A Anesthesia Moderate sedation. Start 1238. End 1308. Sedation monitor: Irais HART Procedural Complication(s) None Disposition PCU I attest to the content of the Intraoperative Record and any orders documented therein. Any exceptions are noted below. [facility] Card Cath Procedure Codes Moderate Sedation Procedure 1: Sedation/Anesthesia: 93281 Mod Sedation by the same physician; Ea [id number] Minutes Stenting Procedure 1: Cardiovascular Stent Procedures: 99118 Perc transcatheter placement of intracoronary stent(s), with ang PG Care Time/CCT Total # of Minutes Spent Total Time Spent with Patient: Total time spent is greater than 50% in coordination of care (as documented) at patient's floor/unit and/or counseling patient:
[2021-06-18] MEDS ORDERED: TICAGRELOR 90 MG TAB PO ONE (13:30)
[2021-06-18] MEDS ORDERED: SODIUM CHLORIDE 0.9% 1000ML 1,000 ML IV SCH (13:30)
--- NOTE | 2021-06-18 14:35 | Pharmacy Report ---
Pharmacy Glycemic Short Note 2 - Date of Service June 18, 2021 - Glycemic Short BSG Results (Last 24 hours): 06/17/21 06/17/21 06/18/21 16:32 20:30 05:57 Glucose 193 H POC Glucose 196 H 146 H 06/18/21 06:00 Glucose POC Glucose 191 H OUTPATIENT ANTIDIABETIC REGIMEN: * Metformin ER 500 mg PO BIDM * HbA1c 8.4% 06/16/21 * Note, per [facility] clinic, pt with intolerances to Tradjenta, Ozempic, Jardiance, and high dose metformin ASSESSMENT: 06/18: * BSGs quite erratic yesterday. Fasting this AM elevated at 191mg/dL. Received 20 units basal and 36 units of prandial insulin yesterday. * NPO after midnight last night and heparin drip held for cath today. No BSGs throughout the day 2/2 cath. * Gave ~50% of basal this AM d/t NPO status. Plan for HS Lantus scale depending on BSG. Added overnight checks. Will reassess basal in AM. 06/16/21 * Fasting BSG 178mg/dl, pt had 15 units basal insulin yesterday, A1c 8.4%, continue with Lantus 15 units daily. * RN held CF this morning d/t NPO status, spoke w/ him and educated to NOT hold CF w/o an order as stated in label comments and per glycemic consult. * BSG now up to 201mg/dl prior to lunch. * Continue CF/CR at this time, titrate to goal BSG. 06/15/21 * 65 yo F admitted secondary to ADHF. Pharmacy has been consulted to assist with inpatient glycemic management. * BSG upon arrival to the floor was 210 mg/dL. Likely elevated due to stress. * Will start Novolog based on weight/stress of 2-3. * Will give a one time dose of Lantus for basal coverage given hyperglycemia. Of note, patient was previously on insulin as an outpatient. PLAN FOR INPATIENT GLYCEMIC CONTROL: * Hold outpatient oral diabetes medications * Basal insulin * Lantus 15 units SC daily * Bolus insulin * NovoLog per scale ACHS or Q6hrs while NPO * Goal Range: Low 110 mg/dL - High 140 mg/dL * Correction Factor: 25 mg/dL/unit * Nutritional / Prandial insulin per carb ratio of 1 unit per 8 grams CHO consumed
--- NOTE | 2021-06-18 15:54 | Hospitalist Progress Note ---
Date of Service June 18, 2021 Assessment & Plan (1) Acute respiratory failure with hypoxia: (2) Acute on chronic systolic HF (heart failure): (3) Ischemic cardiomyopathy: (4) CAD (coronary artery disease): Plan: Acute on chronic systolic and diastolic heart failure NSTEMI-POA Hypoxia -H/O CAD- DORIAN x2 to mid LAD in February 2020, cardiac cath April 2020 demonstrated patent stents and nonobstructive disease -CXR:Cardiomegaly with interval progression of the moderate pulmonary edema. Trace bilateral pleural effusions. -Last Echo 02/2021-EF 45% -ECHO: Mild concentric LVH, severe hypokinesis of the apical anterior wall, mid anteroseptum, apical septum, apical lateral wall. Akinesis of the apical. Hypokinesis of the inferoseptum at the mid and apical levels. Remaining left ventricular myocardial wall segments are mildly hypokinetic. Left ventricle systolic function is severely reduced. EF 25 to 30%. Left atrium is mildly dilated. Mild tricuspid regurgitation. Moderate pulmonary hypertension. Pulmonary artery systolic pressure estimated at 58 mmHg. Grade 2 diastolic dysfunction. --S/P Cardiac Cath:Successful PCI of mid LAD with single drug-eluting stent (2.75 x 23 mm Xience; postdilated with 3.0 NC) overlapping distal half of prior mid LAD stent. --Received IV diuretics Weaned off of supplemental oxygen Received IV heparin Topical nitrates discontinued Continue aspirin, statin, metoprolol Plavix transition to Brilinta Appreciate cardiology input Monitor I's and O's, daily weight Diuresed well Needs follow-up with cardiology upon discharge (5) DMII (diabetes mellitus, type 2): Plan: Hgb A1c 7.4 11/2020 Hold Metformin Utilize Lantus and NovoLog per protocol while hospitalized Glycemic pharmacy consult Hypomagnesemia Replete electrolytes as needed (6) Hypertension: Plan: BP stable Continue current medications Monitor (7) DVT prophylaxis: Plan: IV heparin-held due to Cath SCDs Admission and Anticipated Discharge Date Admission Date: June 15, 2021 Subjective Patient is seen and examined at bedside Patient had Cardiac Cath today Offers no complaints today Family at bedside Denies any chest pain, shortness of breath, dizziness, nausea, abdominal pain Review of Systems Review of Systems: All systems reviewed & are unremarkable except as noted in Subjective Physical Exam Physical Exam: Physical Exam: Vitals signs as noted above General Appearance:Moderately built and nourished, no apparent distress Head: normocephalic, Atraumatic Eyes: normal inspection, EOMI Neck: supple, Trachea midline Respiratory/Chest: Decreased breath sounds, CTA Cardiovascular: S1, S2, No murmur Abdomen/GI:Soft, Non tender, Bowel sounds present Extremities/Musculoskeletal:normal inspection, Trace B/L LE edema Neurologic/Psych:AAOX3, grossly no focal neurological deficits Skin: normal color, warm Results & Data Results & Data ([facility]) Vital Signs (Past 12 Hours) Vital Signs Temp Pulse Resp BP BP Pulse Ox 06/18/21 15:10 37.1 C 86 16 110/68 97 06/18/21 14:40 36.8 C 83 15 118/78 96 06/18/21 14:10 36.9 C 80 19 126/84 96 06/18/21 13:55 36.6 C 68 14 132/83 93 06/18/21 13:40 37.2 C 65 18 126/83 96 06/18/21 13:32 60 18 117/65 97 06/18/21 13:17 85 17 116/71 98 06/18/21 10:48 36.6 C 66 17 109/64 96 06/18/21 07:16 36.4 C L 88 17 134/82 98 Laboratory Results [facility] 06/18/21 05:57 Sodium 136 Potassium 4.2 Chloride 100 Carbon Dioxide 31 BUN 31 H Creatinine 1.01 Glucose 193 H Calcium 8.7 (1) Hypertension Hypertension type: essential hypertension Qualified Code(s): I10 - Essential (primary) hypertension
[2021-06-18] MEDS: INSULIN ASPART PER UNIT SC SCH ×2 (17:15→21:30)
[2021-06-18] MEDS: ATORVASTATIN 40 MG TAB PO SCH (20:55)
[2021-06-18] MEDS ORDERED: INSULIN GLARGINE SOLOSTAR 100 UNITS/ML 3 ML PEN SC SCH (21:00)
[2021-06-19] MEDS: INSULIN ASPART PER UNIT SC SCH ×4 (00:14→12:11)
[2021-06-19 06:57] LABS: BUN Creatinine Ratio 29.1 (10-20); Calcium 8.8 mg/dl (8.5-10.1); Creatinine Clr Calc Pharmacy 54.8 ml/min; Est GFR (African American) 57.4 ml/min; Est GFR (Non-African American) 49.6 ml/min; Potassium 4.4 mmol/L (3.5-5.1)
[2021-06-19] MEDS: FAMOTIDINE 20 MG TAB PO SCH (08:41)
[2021-06-19] MEDS: METOPROLOL SUCC 25MG EXT REL TAB PO SCH (08:42)
[2021-06-19] MEDS: GABAPENTIN 100 MG CAP PO SCH ×2 (08:42→13:23)
[2021-06-19] MEDS: PANTOprazole 40 MG TAB PO SCH (08:42)
[2021-06-19] MEDS: ASPIRIN 81 MG ECTAB PO SCH (08:42)
[2021-06-19] MEDS: OXYBUTYNIN CHLORIDE 5 MG TAB PO SCH (08:42)
[2021-06-19] MEDS: SERTRALINE HCL 100 MG TABLET PO SCH (08:43)
[2021-06-19] MEDS: INSULIN GLARGINE SOLOSTAR 100 UNITS/ML 3 ML PEN SC SCH (08:43)
[2021-06-19] MEDS ORDERED: TICAGRELOR 90 MG TAB PO SCH (09:00)
--- NOTE | 2021-06-19 10:47 | Electrocardiogram Report ---
Test Reason : Blood Pressure : / mmHG Vent. Rate : 085 BPM Atrial Rate : 085 BPM P-R Int : 108 ms QRS Dur : 132 ms QT Int : 430 ms P-R-T Axes : 038 -75 -76 degrees QTc Int : 511 ms Sinus rhythm with short NJ Right bundle branch block Left anterior fascicular block Bifascicular block Septal infarct (cited on or before 16-JUN-2021) Abnormal ECG When compared with ECG of 17-JUN-2021 05:14, Questionable change in initial forces of Septal leads Confirmed by Eze Marcus ([id number]) on 06/19/2021 10:46:54 AM Referred By: REFERRED SELF Confirmed By:Eze Marcus
--- NOTE | 2021-06-19 12:09 | Cardiology Progress Note ---
Date of Service June 19, 2021 Assessment & Plan (1) Non-ST elevation (NSTEMI) myocardial infarction: (2) Status post insertion of drug-eluting stent into left anterior descending (LAD) artery: (3) Acute on chronic systolic HF (heart failure): (4) CAD (coronary artery disease): (5) Ischemic cardiomyopathy: (6) Bifascicular block: (7) Anemia: (8) DMII (diabetes mellitus, type 2): (9) Acute renal insufficiency: Plan: 65-year-old female admitted with acute on chronic heart failure with flash pulmonary edema and NSTEMI. Cardiac catheterization performed 06/18/2021 demonstrated severe mid LAD stenosis distal to previous implanted drug-eluting stent. Another drug-eluting stent was implanted without complication. Patient transitioned from clopidogrel to Brilinta. Discussed importance of continuing dual antiplatelet therapy for minimum of 12 months post percutaneous innervation/NSTEMI. Continue lisinopril and Toprol-XL. Consider transition to Entresto in the outpatient setting. Restart torsemide 10 mg daily. Patient structured to weigh herself on a daily basis. Diuretic protocol reviewed: Take an additional 10 mg of torsemide if weight increases more than 2 pounds in a 48-hour period, or 5 pounds in 1 week. All questions answered to patient satisfaction. Cardiology follow-up in 1-[address] Delcid or Carole Alejo PA-C in [place]. Post cardiac catheterization/intervention activity restrictions listed below. ACTIVITY RECOMMENDATIONS: It is common to feel weak and fatigue for a few days. * Do not drive or operate any motorized equipment for the next three days. * Limit stair usage (2 or 3 trips a day only) for the next three days. * Do not lift anything heavier than 10 pounds for the next three days. * Do not engage in vigorous exercise or any sports for the next five days. * You may shower the day after your procedure, but do not immerse the area for three days. Cleanse the site gently with soap and water. SPECIAL CARE INSTRUCTIONS: * You may replace the pressure dressing or band-aid the morning after the procedure. * After your procedure, it is normal to have a small bruise or small lump at the site. Examine your site daily for any change in the bruise or lump, redness, swelling, drainage or numbness. Notify your doctor if any change. BLEEDING: * If there is a small amount of bleeding at the site, lie down and apply firm pressure with a clean cloth for ten minutes. When the bleeding stops, lie quietly keeping the procedure limb straight for six hours. Notify your doctor as soon as possible. * If the bleeding does not stop after ten minutes or if there is a large amount of bleeding or spurting, call 911 immediately. Continue to lie down and hold firm pressure until help arrives. SKIN IRRITATION: * You may experience some redness and/or swelling in the area where radiation was administered. If any skin irritation occurs, please contact your family physician. Admission and Anticipated Discharge Date Admission Date: June 15, 2021 Subjective 65-year-old female status post drug-eluting stent implantation to the mid LAD 06/18/2021. Feeling well overnight. No recurrent left arm discomfort, orthopnea, or shortness of breath. Telemetry reveals sinus rhythm with sinus arrhythmia. Patient tolerating current medications. Transition from clopidogrel to Brilinta per direction of interventional cardiology. Review of Systems Review of Systems: All systems reviewed & are unremarkable except as noted in Subjective Physical Exam Constitutional: well nourished; no acute distress ENMT: Mallampati Class: II Respiratory: normal respiratory effort; no respiratory distress and no labored breathing Auscultation: lungs clear to auscultation bilaterally and + diminished lung sounds (Bases bilateral); no crackles, no rales, no rhonchi and no wheezes Cardiovascular: Rate/Rhythm: regular rate and regular rhythm Heart Sounds: normal S1 and normal S2; no murmur Vessels: femoral pulses present and radial pulses present; no JVD and no carotid bruit Extremities: no edema Gastrointestinal (Abdomen): Inspection/Auscultation: abdomen normal to inspection and normal bowel sounds; abdomen not distended Percussion/Palpation: abdomen soft; abdomen nontender, no guarding and abdomen not rigid Neurologic: CN's II-XI intact bilaterally and moves all extremities; no focal motor deficits Motor/Sensory: no tremor Psychiatric: A+Ox3, euthymic affect Results & Data ([facility]) Vital Signs (Past 12 Hours) Vital Signs Temp Pulse Pulse Resp BP BP Pulse Ox 06/19/21 11:47 36.7 C 89 18 153/99 H 98 06/19/21 03:02 36.6 C 65 15 118/68 99 03/29/22 01:57 68
--- NOTE | 2021-06-19 12:46 | Pharmacy Report ---
Pharmacy Glycemic Short Note 2 - Date of Service June 19, 2021 - Glycemic Short BSG Results (Last 24 hours): 06/18/21 06/18/21 06/18/21 16:39 20:09 20:53 Glucose POC Glucose 145 H 71 84 06/18/21 06/19/21 06/19/21 23:54 05:08 06:11 Glucose 169 H POC Glucose 192 H 191 H 06/19/21 06/19/21 06/19/21 07:11 11:03 11:19 Glucose POC Glucose 146 H 94 81 OUTPATIENT ANTIDIABETIC REGIMEN: * Metformin ER 500 mg PO BIDM * HbA1c 8.4% 06/16/21 * Note, per [facility] clinic, pt with intolerances to Tradjenta, Ozempic, Jardiance, and high dose metformin ASSESSMENT: 06/19: * BSGs post cath [phone]. Fasting this AM -146mg/dL which is acceptable. * Tolerating diet this AM. Heparin drip discontinued. * CF/CR loosened after breakfast to 30/10. Pt received a 6 unit bolus (35gm CHO) and lunch BSG 94. * Lantus 10 units this AM. Will reassess basal tomorrow AM. 06/18: * BSGs quite erratic yesterday. Fasting this AM elevated at 191mg/dL. Received 20 units basal and 36 units of prandial insulin yesterday. * NPO after midnight last night and heparin drip held for cath today. No BSGs throughout the day 2/2 cath. * Gave ~50% of basal this AM d/t NPO status. Plan for HS Lantus scale depending on BSG. Added overnight checks. Will reassess basal in AM. 06/16/21 * Fasting BSG 178mg/dl, pt had 15 units basal insulin yesterday, A1c 8.4%, continue with Lantus 15 units daily. * RN held CF this morning d/t NPO status, spoke w/ him and educated to NOT hold CF w/o an order as stated in label comments and per glycemic consult. * BSG now up to 201mg/dl prior to lunch. * Continue CF/CR at this time, titrate to goal BSG. 06/15/21 * 65 yo F admitted secondary to ADHF. Pharmacy has been consulted to assist with inpatient glycemic management. * BSG upon arrival to the floor was 210 mg/dL. Likely elevated due to stress. * Will start Novolog based on weight/stress of 2-3. * Will give a one time dose of Lantus for basal coverage given hyperglycemia. Of note, patient was previously on insulin as an outpatient. PLAN FOR INPATIENT GLYCEMIC CONTROL: * Hold outpatient oral diabetes medications * Basal insulin * Lantus 10 units SC daily * Bolus insulin * NovoLog per scale ACHS or Q6hrs while NPO * Goal Range: Low 110 mg/dL - High 140 mg/dL * Correction Factor: 30 mg/dL/unit * Nutritional / Prandial insulin per carb ratio of 1 unit per 10 grams CHO consumed
--- NOTE | 2021-06-19 14:06 | Hospitalist Progress Note ---
Date of Service June 19, 2021 Assessment & Plan (1) Acute respiratory failure with hypoxia: (2) Acute on chronic systolic HF (heart failure): (3) Ischemic cardiomyopathy: (4) CAD (coronary artery disease): Plan: Acute on chronic systolic and diastolic heart failure NSTEMI-POA S/P PCI Hypoxia -H/O CAD- DORIAN x2 to mid LAD in February 2020, cardiac cath April 2020 demonstrated patent stents and nonobstructive disease -CXR:Cardiomegaly with interval progression of the moderate pulmonary edema. Trace bilateral pleural effusions. -Last Echo 02/2021-EF 45% -ECHO: Mild concentric LVH, severe hypokinesis of the apical anterior wall, mid anteroseptum, apical septum, apical lateral wall. Akinesis of the apical. Hypokinesis of the inferoseptum at the mid and apical levels. Remaining left ventricular myocardial wall segments are mildly hypokinetic. Left ventricle systolic function is severely reduced. EF 25 to 30%. Left atrium is mildly dilated. Mild tricuspid regurgitation. Moderate pulmonary hypertension. Pulmonary artery systolic pressure estimated at 58 mmHg. Grade 2 diastolic dysfunction. --S/P Cardiac Cath:Successful PCI of mid LAD with single drug-eluting stent (2.75 x 23 mm Xience; postdilated with 3.0 NC) overlapping distal half of prior mid LAD stent. --Received IV diuretics Weaned off of supplemental oxygen IV heparin, Topical nitrates discontinued Continue aspirin, statin, metoprolol, Lisinopril Plavix transition to Brilinta Appreciate cardiology input Monitor I's and O's, daily weight Diuresed well Needs follow-up with cardiology upon discharge Resume Torsemide 10mg daily upon discharge (5) DMII (diabetes mellitus, type 2): Plan: Hgb A1c 7.4 11/2020 Hold Metformin Utilize Lantus and NovoLog per protocol while hospitalized Glycemic pharmacy consult Hypomagnesemia Replete electrolytes as needed (6) Hypertension: Plan: BP stable Continue current medications Monitor (7) DVT prophylaxis: Plan: Received IV heparin SCDs Admission and Anticipated Discharge Date Admission Date: June 15, 2021 Subjective Patient is seen and examined at bedside Doing well today No new complaints Denies any chest pain, shortness of breath, dizziness, nausea, abdominal pain Plan to discharge home today Review of Systems Review of Systems: All systems reviewed & are unremarkable except as noted in Subjective Physical Exam Physical Exam: Physical Exam: Vitals signs as noted above General Appearance:Moderately built and nourished, no apparent distress Head: normocephalic, Atraumatic Eyes: normal inspection, EOMI Neck: supple, Trachea midline Respiratory/Chest: Decreased breath sounds, CTA Cardiovascular: S1, S2, No murmur Abdomen/GI:Soft, Non tender, Bowel sounds present Extremities/Musculoskeletal:normal inspection, Trace B/L LE edema Neurologic/Psych:AAOX3, grossly no focal neurological deficits Skin: normal color, warm Results & Data Results & Data ([facility]) Vital Signs (Past 12 Hours) Vital Signs Temp Pulse Resp BP BP Pulse Ox 06/19/21 11:47 36.7 C 89 18 153/99 H 98 06/19/21 03:02 36.6 C 65 15 118/68 99 Laboratory Results [facility] 06/19/21 06:11 Sodium 138 Potassium 4.4 Chloride 101 Carbon Dioxide 32 BUN 34 H Creatinine 1.17 Glucose 169 H Calcium 8.8 (1) Hypertension Hypertension type: essential hypertension Qualified Code(s): I10 - Essential (primary) hypertension
--- NOTE | 2021-06-19 14:26 | Discharge Summary ---
Date of Service June 19, 2021 Admission HPI Per Admitting Provider 65-year-old female with PMH DM type II, GERD, ischemic cardiomyopathy, CAD s/p DORIAN to LAD x2 in February 2020, depression, and other problems listed below who presents to the ED for evaluation of nausea, vomiting, and shortness of breath. Patient reports she went to bed last evening feeling in her usual state of health. This morning, whenever she woke up she had sudden onset of nausea and a few episodes of vomiting. Patient notes associated left arm discomfort, numbness, tingling. She also has shortness of breath. Patient denies chest pain. No lightheadedness, dizziness, diaphoresis, syncopal events. Patient notes symptoms are similar to her heart attack however she did not have any chest pain this morning. Patient notes about a 10 pound weight gain over the past 1 week. Denies lower extremity edema and orthopnea. No other recent illnesses, fevers, chills. Denies hematemesis, coffee-ground emesis, bright lamp rectum, dark tarry stools. No abdominal pain. Denies urinary symptoms. In the ED, patient was 85% on room air. She is currently saturating well on 2 L of oxygen via nasal cannula. CXR shows signs of pulmonary edema. EKG shows sinus tachycardia with a bifascicular block. Initial troponin mildly elevated at 0.08. Patient was given Lasix 40 mg IV and IV cefepime. Admission Exam Per Admitting Provider Physical Exam Constitutional: WD/WN, vitals as above Eyes: PERRL, conjunctivae normal, anicteric sclerae ENMT: external ear and nose normal, oropharynx normal Respiratory: Auscultation: + diminished lung sounds and + crackles (upper anterior lung sung) Cardiovascular: Rate/Rhythm: regular rhythm and + tachycardic Vessels: normal peripheral pulses Extremities: no edema Gastrointestinal (Abdomen): normal bowel sounds, soft, nontender, no hepatosplenomegaly Musculoskeletal: no cyanosis or clubbing, extremities motor strength 5/5 Skin: no rashes, warm and dry Neurologic: PERRL, EOMI, accommodation nl, no face palsy, no dysarthria Psychiatric: A+Ox3, euthymic affect Principal Diagnosis Acute on chronic systolic and diastolic heart failure Non-ST segment elevated myocardial infarction Discharge Data Allergies Allergy/AdvReac Type Severity Reaction Status Date / Time hydrocodone Allergy Intermediate Hives Verified 06/15/21 11:52 milk Allergy Intermediate Hives Verified 06/15/21 11:52 pine nut Allergy Intermediate Hives Verified 06/15/21 11:52 lactose AdvReac Verified 06/15/21 16:06 Consultations 06/15/21 11:53 ED Decision to Admit Stat 06/15/21 12:56 Consult Cardiology Routine 06/18/21 07:30 Consult Cardiac Catheterization Routine 06/18/21 13:27 Consult Cardiac Rehabilitation Routine Procedures Performed Operation Date: 06/18/21 11:30 Actual Procedures p Drug Eluting Stent SGl Vessel - John Szymanski MD p Cath, Left with Cors and Vent - Dimitris Bullock DO s Cineradiography w/Routine Exam - Dimitris Bullock DO Ordered Studies 06/18/21 06:38 CL Cath Imgs for PACS use only Routine Hospital Course (1) Acute respiratory failure with hypoxia: (2) Acute on chronic systolic HF (heart failure): (3) Ischemic cardiomyopathy: (4) CAD (coronary artery disease): Acute on chronic systolic and diastolic heart failure NSTEMI-POA S/P PCI Hypoxia -H/O CAD- DORIAN x2 to mid LAD in February 2020, cardiac cath April 2020 demonstrated patent stents and nonobstructive disease -CXR:Cardiomegaly with interval progression of the moderate pulmonary edema. Trace bilateral pleural effusions. -Last Echo 02/2021-EF 45% -ECHO: Mild concentric LVH, severe hypokinesis of the apical anterior wall, mid anteroseptum, apical septum, apical lateral wall. Akinesis of the apical. Hypokinesis of the inferoseptum at the mid and apical levels. Remaining left ventricular myocardial wall segments are mildly hypokinetic. Left ventricle systolic function is severely reduced. EF 25 to 30%. Left atrium is mildly dilated. Mild tricuspid regurgitation. Moderate pulmonary hypertension. Pulmonary artery systolic pressure estimated at 58 mmHg. Grade 2 diastolic dysfunction. --S/P Cardiac Cath:Successful PCI of mid LAD with single drug-eluting stent (2.75 x 23 mm Xience; postdilated with 3.0 NC) overlapping distal half of prior mid LAD stent. --Received IV diuretics Weaned off of supplemental oxygen IV heparin, Topical nitrates discontinued Continue aspirin, statin, metoprolol, Lisinopril Plavix transition to Brilinta Appreciate cardiology input Monitor I's and O's, daily weight Diuresed well Needs follow-up with cardiology upon discharge Resume Torsemide 10mg daily upon discharge (5) DMII (diabetes mellitus, type 2): Hgb A1c 7.4 11/2020 Hold Metformin Utilize Lantus and NovoLog per protocol while hospitalized Glycemic pharmacy consult Hypomagnesemia Replete electrolytes as needed (6) Hypertension: BP stable Continue current medications Monitor (7) DVT prophylaxis: Received IV heparin SCDs Total Time Total Time Spent Total Time Spent (In Minutes): 50 minutes Discharge Plan Discharge Items Patient Disposition: Home - Self-Care Reason For Visit: CHF, HYPOXIA Discharge Diagnosis: Acute on chronic systolic and diastolic heart failure Non-ST segment elevated myocardial infarction Activity: Per Instructions section Exercise/Sports: Wait until after follow-up appointment Non-emergency contact: Primary Care Provider and Feature Writer Call non-emergency contact if: you have any medication questions, your symptoms worsen, your pain is concerning for you and you have a fever Follow-up/Referrals: Scarlett Aguilar MD [Primary Care Provider] - (Date & Time 06/25/2021 2:20 PM Provider Jordin Mcqueen MD Department Family Medicine [facility] ) Diet: Carb Consistent or DM2 and Heart Healthy Addtl Attending Provider Instructions: --Follow-up with your primary care physician Dr. Sukhdeep Devries on 06/25/2021 2:20 PM --Follow up with your Feature Writer in 1-2 weeks as recommended. Please call for appointment. --Take an additional 10 mg of torsemide if weight increases more than 2 pounds in a 48-hour period, or 5 pounds in 1 week as recommended by your Feature Writer. --Continue Aspirin, Brilinta for minimum of 12 months as recommended by your Feature Writer. Seek immediate medical attention if your symptoms reoccur or worsen Please take all medications as instructed on discharge list below. Please call if you have any questions or problems. You can reach a [facility] hospitalist on duty at [facility] 24 hours a day by calling [phone] Home Care: * Take your medications exactly as directed. Don't skip doses. * Remember that recovery after a heart attack takes time. Plan to rest for at lease 4-8 weeks while you recover. Then return to normal activity when your doctor says it's okay. * Ask your doctor about joining a heart rehabilitation program. * Tell your doctor if you are feeling depressed. Feelings of sadness are common after a heart attack, but it is important that you speak to someone if you are feeling overwhelmed by these feelings. * If you are having chest pain, call 911 for an ambulance. Do NOT drive yourself to the hospital. * Ask your family members to learn CPR. * Learn to take your own blood pressure and pulse. Keep a record of your results. Ask your doctor when you should seek emergency medical attention. He or she will tell you which blood pressure reading is dangerous. Lifestyle Changes: * Maintain a healthy weight. Get help to lose any extra pounds. * Cut back on salt. * Limit canned, dried, packaged, and fast foods. * Don't add salt to your food. * Season foods with herbs instead of salt when you cook. * Break the smoking habit. Enroll in a stop-smoking program to improve your chances of success. * Limit fatty foods. * Ask your doctor about having your lipid levels checked regularly. * Build up your activity according to your doctor's recommendation. * Ask your doctor when it's okay to resume sexual activity. * Tell your doctor about any erectile dysfunction (ED) medication you are taking. Some ED medications are not safe if you take certain heart medications. * Try to manage stress. Follow Up: It is important for you to keep your follow up appointments with your medical provider. Call your Primary Care doctor if any of the following symptoms or problems start or get worse: * Shortness of breath or difficulty breathing * Wake up at night short of breath * Chest pain * Cough * Swelling of your hands, feet, or legs * More fatigued or tired with your normal activity * Palpitations - sudden fast heart beats WEIGHT * Weigh yourself every morning after using the bathroom. * Use the same scale. * Wear the same amount of clothing. * Write your weight down on a chart. * Call your Primary Care doctor if you gain more than 2-3 pounds in 1-2 days. MEDICATIONS * Use this discharge instruction sheet for medication instructions. * Take your medications at the time your doctor ordered. * Do not skip a dose of your medicines. * If you miss a dose of medicine, take it as soon as possible, but DO NOT DOUBLE A DOSE. * Read your medicine information when you get home. * Know all of the side effects of your medicine. If in doubt, ask your pharmacist * Call your Primary Care doctor's office if you have any side effects. * Be sure all of your doctors know what medicine and herbs you take (including cold, flu, and herbal medicine). Take the following with you to your follow-up doctor appointments: * Weight Chart * Medication List * List of questions Do not drink excessive alcohol, beer or wine. Pending Studies at Discharge: No Stand-Alone Forms: My [facility] GoSpotCheck, Smoking Cessation Medications and DC Order Prescriptions: New Brilinta 90 mg Tablet 90 mg PO BID Qty: 60 RF: 0 Continued atorvastatin [Lipitor] 80 mg Tablet 80 mg PO HS RF: 0 famotidine [Pepcid] 20 mg Tablet 20 mg PO BID RF: 0 oxybutynin chloride 5 mg Tablet 5 mg PO DAILY RF: 0 nitroglycerin [Nitrostat] 0.4 mg tablet, sublingual 0.4 mg sublingual UD PRN (Reason: Chest Pain) RF: 0 sertraline [Zoloft] 100 mg tablet 100 mg PO QAM RF: 0 lisinopril [Zestril] 5 mg Tablet 5 mg PO BID Qty: 60 RF: 0 aspirin [Aspirin Low Dose] 81 mg Tablet,Delayed Release (Dr/Ec) 81 mg PO QAM RF: 0 pantoprazole [Protonix] 20 mg tablet,delayed release (DR/EC) 20 mg PO DAILY RF: 0 metoprolol succinate [Toprol XL] 25 mg tablet extended release 24 hr 25 mg PO BID RF: 0 gabapentin 100 mg capsule 200 mg PO TID RF: 0 metformin 500 mg tablet extended release 24 hr 500 mg PO BIDM RF: 0 torsemide 10 mg tablet 10 mg PO DAILY RF: 0 Discharge Orders: Discharge Order (Routine); Ordered 06/19/21 Ordered By: Juan Trent/Other Patient Handouts: Managing Type 2 Diabetes Admission Data Admit Date/Time: 06/15/21 12:19 Attending Provider: Juan Woo Admit Provider: Ada Santos Primary Care Provider: Scarlett Aguilar Other Providers: Wilmer Delcid ; Elisa Navarrete ; Dimitris Bullock
== END 2021-06-19 14:58 | disposition home or self-care (01) | DRG 246 ==
LOC: ED 09:58 → 2E 12:19 → SUATTDRO 12:19 → 2E 14:10

== ENCOUNTER 2021-07-19 23:30 | Inpatient (IN) ==
[2021-07-19] MEDS ORDERED: RAPID SEQUENCE INDUCTION BAG ONE (23:57)
[2021-07-20] MEDS ORDERED: PROPOFOL IV EMULSION 10 MG/ML 100 ML VIAL IV ONE (00:11)
[2021-07-20] MEDS: propofoL 1,000 MG/100 ML VIAL IV SCH ×6 (00:15→22:21)
[2021-07-20] MEDS ORDERED: FUROSEMIDE 40 MG/4 ML VIAL IV ONE (00:18)
[2021-07-20] MEDS ORDERED: STAT IV Infusion **Titration per Protocol STA (00:57)
[2021-07-20] MEDS ORDERED: PROPOFOL BOLUS FROM BAG IV PRN (00:57)
[2021-07-20 01:20] LABS: Hematocrit (blood only) 31.7 % (37-47); Hemoglobin 9.9 g/dL (12.0-16.0); Mean Corpuscular Hemoglobin 30.3 pg (25-34); Mean Corpuscular Hgb Conc 31.2 g/dL (32-36); Mean Corpuscular Volume 96.9 fL (80-100); Mean Platelet Volume 11.1 fL (7.4-10.4); Platelet Count 298 K/uL (130-400); RDW Coefficient of Variation 14.5 % (11.5-14.5); RDW Standard Deviation 50.8 fL (36.4-46.3); Red Blood Count 3.27 M/uL (4.2-5.4); White Blood Count 7.68 K/uL (4.8-10.8)
[2021-07-20 01:25] LABS: Appearance Urine Clear (Clear); Bacteria Urine Automated Negative (Negative); Bilirubin Urine Negative (Negative); Blood Urine 1+ (Negative); Color Urine Yellow; Glucose Urine UA 3+ (Negative); Ketones Urine Negative (Negative); Leukocyte Esterase Urine Negative (Negative); Nitrite Urine Negative (Negative); Protein Urine 3+ (Negative); RBC Urine Automated 0-4 /hpf (0-4); Specific Gravity Urine 1.017 (1.000-1.030); Urobilinogen Urine Negative (Negative)
[2021-07-20 01:42] LABS: ALC (manual) 2.38 K/uL (1.2-3.4); ANC (manual) 4.82 K/uL (1.4-6.5); Basophils # (manual) 0.14 K/uL (0-0.2); Basophils % (manual) 1.8 %; Echinocytes 1+; Eosinophils # (manual) 0.14 K/uL (0-0.5); Eosinophils % (manual) 1.8 %; Lymphocytes # (manual) 2.38 K/uL (1.2-3.4); Monocytes # (manual) 0.21 K/uL (0.11-0.59); Monocytes % (manual) 2.7 %; Neutrophils # (manual) 4.82 K/uL (1.4-6.5); Neutrophils % (manual) 62.7 %; Polychromasia 1+
[2021-07-20 01:45] LABS: Albumin Globulin Ratio 1.2 (0.9-2); BUN Creatinine Ratio 23.9 (10-20); Bilirubin,Total 0.4 mg/dl (0.2-1.0); Calcium 8.5 mg/dl (8.5-10.1); Creatinine Clr Calc Pharmacy 56.5 ml/min; Est GFR (African American) 62.6 ml/min; Globulin 3.3 gm/dl (2.5-4.0); Potassium 3.9 mmol/L (3.5-5.1); Total Protein 7.3 gm/dl (6.0-8.3); Troponin I High Sensitivity 18.1 pg/ml (0-14)
[2021-07-20] MEDS ORDERED: ICU PROTOCOL FOR HYPERGLYCEMIA PRN (03:51)
[2021-07-20] MEDS ORDERED: NITROGLYCERIN SL 0.4 MG/TAB TAB SL PRN (03:51)
[2021-07-20] MEDS ORDERED: ACETAMINOPHEN 1,000 MG/100 ML VIAL IV PRN (03:54)
[2021-07-20] MEDS ORDERED: fentaNYL citrate 100 MCG/2 ML VIAL IV PRN (03:54)
[2021-07-20] MEDS ORDERED: CARBOHYDRATES FOR HYPOGLYCEMIA PO PRN (03:58)
[2021-07-20] MEDS ORDERED: PHARMACY GLYCEMIC MGMT CONSULT PRN (03:58)
[2021-07-20] MEDS ORDERED: DEXTROSE 50% 50 ML SYRINGE IV PRN (03:58)
[2021-07-20] MEDS ORDERED: GLUCOSE 40% GEL 15 GM TUBE PO PRN (03:58)
[2021-07-20] MEDS ORDERED: DC ALL PREVIOUSLY ORDERED DIABETES MEDS ONE (03:58)
[2021-07-20] MEDS ORDERED: GLUCAGON FOR INJ 1 MG VIAL SQ PRN (03:58)
--- NOTE | 2021-07-20 04:03 | Critical Care Consultation ---
Date of Consultation July 20, 2021 Assessment & Plan (1) Admitted to intensive care unit: Reason Critically Ill: 65-year-old female with acute on chronic CHF exacerbation with respiratory failure and hypoxia requiring emergent endotracheal intubation. NEURO - * CAM ICU: Unable to assess * Sedation: Propofol * Pain: Fentanyl as needed CARDIAC/VASCULAR - * Acute on chronic CHF exacerbation: * Patient seen within the past month for similar symptoms of volume overload. * Recently underwent drug-eluting stent placement of the LAD on 06/18. * Patient noted to have decline in EF during most recent admission. EF noted to be 25 to 30%. * Patient responding well to IV Lasix. * Will add topical nitroglycerin as blood pressure allows. * Continue with home medications otherwise. * Agree with a.m. echocardiogram. * Appreciate cardiology consultation. * Elevated troponin: * Slight elevation of high sensitivity troponin. * Likely 2/2 above. * Trend troponin. * Patient has had recent stenting 2/2 similar presentation and positive cath in the past. * Hold on Heparin gtt for now. * Continue DAPT for now. * EKG: NSR @ [address]/T-wave changes noted. QTc 511 ms. * Monitor on telemetry. RESPIRATORY - * Acute Hypoxic Respiratory Failure with Hypoxia: * Secondary to flash pulmonary edema. * Failed NIPPV 2/2 nausea/vomiting. * Required intubation. * Titrate down vent settings as tolerated. * ABG to guide ventilator management. * Anticipate improvement as patient continues to diurese. GI/NUTRITION - * NPO except for meds. * OGT in place * Prophylaxis: Famotidine RENAL/LYTES - * No significant electrolyte derangements. * Hold on IVF in the setting of volume overload. - * Lerner in place - Strict I&Os. ENDO - * DMII * BSGs per unit protocol. ISS --> gtt per unit policy. HEME - * Stable H&H ID - * No concerns for infectious causes at this time. LINES/IV ACCESS - * PIVs x2 * ETT * OGT * Lerner DVT PROPHYLAXIS - * Lovenox * SCDs I have personally spent 42 minutes of critical care time in the direct management of this patient. This is a life/limb threatening event. This includes time spent evaluating patient, direct bedside care, chart review, placing orders, interpretation of diagnostic studies, discussion with consultants, patient, and family members, as well as other required patient management activities. This time is exclusive of all separately billable procedures, and teaching time and separate from and in addition to any other critical care service time. Thank you for allowing us to participate in the care of this patient. Please refer to my attending physician's documentation for any further recommendations. (2) Acute respiratory failure with hypoxia: (3) Flash pulmonary edema: (4) CAD (coronary artery disease): (5) Status post insertion of drug-eluting stent into left anterior descending (LAD) artery: (6) DAVID (obstructive sleep apnea): (7) Ischemic cardiomyopathy: (8) DMII (diabetes mellitus, type 2): (9) Acute on chronic systolic HF (heart failure): Supervising Physician Co-Signing Physician Notes Patient seen and examined. EMR reviewed. Discussed with critical care ELIS. Agree with assessment and plan as noted. Please refer to my critical care supplementary documentation from today for additional details. History of Present Illness Attending Physician: Jose Chiu MD History of Present Illness Patient is a 65-year-old female with a significant past medical history of coronary artery disease, hypertension, hyperlipidemia, ischemic cardiomyopathy, type 2 diabetes, depression, obstructive sleep apnea. Patient presented to the emergency department via EMS with chief complaint of shortness of breath with associated nausea. Patient was found to be increasingly hypoxic and requiring escalating amounts of FiO2 during transport to the hospital. Patient was saturating in the 70s on 15 L nonrebreather mask while in the emergency de partment. They did attempt to try BiPAP on the patient, however prior to BiPAP, the patient vomited. She failed high flow. Patient was promptly intubated given the failure of noninvasive positive pressure techniques. Patient's chest x-ray consistent with florid pulmonary edema. She received 40 mg of IV Lasix with significant output. EKG without acute ischemic changes. High-sensitivity troponin slightly elevated. Patient unable to contribute to history of present illness secondary to stated intubation with sedation. Allergies Allergy/AdvReac Type Severity Reaction Status Date / Time hydrocodone Allergy Intermediate Hives Verified 07/20/21 00:26 milk Allergy Intermediate Hives Verified 07/20/21 00:26 pine nut Allergy Intermediate Hives Verified 07/20/21 00:26 empagliflozin AdvReac Intermediate DIARRHEA--PER Verified 07/20/21 00:26 [From Jardiance] GMG lactose AdvReac Intermediate Gastrointestinal Verified 07/20/21 00:26 Upset semaglutide AdvReac Intermediate Diarrhea Verified 07/20/21 00:26 vaccine adjuvant system, AdvReac Intermediate LETHARGIC, Verified 07/20/21 00:26 [id number] liposomal PAIN, [From Shingrix (PF)] FATIGUE varicella-zoster virus AdvReac Intermediate LETHARGIC, Verified 07/20/21 00:26 glycoprotein E, recombinant PAIN, [From Shingrix (PF)] FATIGUE Home Medications Medication Instructions Recorded Confirmed Type atorvastatin 80 mg tablet (Lipitor) 80 mg PO HS 03/29/18 07/20/21 History famotidine 20 mg tablet (Pepcid) 20 mg PO BID 12/26/19 07/20/21 History oxybutynin chloride 5 mg tablet 5 mg PO DAILY 12/26/19 07/20/21 History nitroglycerin 0.4 mg sublingual 0.4 mg SUBLINGUAL UD PRN 02/28/20 07/20/21 History tablet (Nitrostat) sertraline 100 mg tablet (Zoloft) 100 mg PO QAM 02/28/20 07/20/21 History lisinopril 5 mg tablet (Zestril) 5 mg PO BID #60 tab 05/06/20 07/20/21 Rx aspirin 81 mg tablet,delayed 81 mg PO QAM 12/26/20 07/20/21 History release (Aspirin Low Dose) metoprolol succinate 25 mg 25 mg PO BID 12/26/20 07/20/21 History tablet,extended release 24 hr (Toprol XL) pantoprazole 20 mg tablet,delayed 20 mg PO DAILY 12/26/20 07/20/21 History release (Protonix) gabapentin 100 mg capsule 200 mg PO TID 06/15/21 07/20/21 History metformin 500 mg tablet,extended 500 mg PO BIDM 06/15/21 07/20/21 History release 24 hr torsemide 10 mg tablet 10 mg PO DAILY 06/15/21 07/20/21 History ticagrelor 90 mg tablet (Brilinta) 90 mg PO BID #60 tab 06/19/21 07/20/21 Rx ezetimibe 10 mg tablet 10 mg PO DAILY 07/20/21 07/20/21 History Patient History Medical History Anemia Arthritis CAD (coronary artery disease) 02/2020-DORIAN x2 to mid LAD 04/2020 cardiac cath demonstrated patent stents and nonobstructive disease Depression Diabetic polyneuropathy DMII (diabetes mellitus, type 2) GERD (gastroesophageal reflux disease) HTN (hypertension) Ischemic cardiomyopathy DAVID (obstructive sleep apnea) STEMI (ST elevation myocardial infarction) Surgical History History of appendectomy History of carpal tunnel surgery Hx of cholecystectomy No pertinent past surgical history S/P arterial stent S/P FELA (total abdominal hysterectomy) Family History Other Deep vein thrombosis Social History Smoking Status: Former smoker Tobacco Type: Cigarettes Second Hand Exposure: No; Do You Dip or Chew Tobacco: No; Hx Alcohol Use: Yes Alcohol type: wine Hx Substance Use: No Preferred Language: Vincentian Communication Ability: Effective Visual Impairment: No Limitations Hearing Ability: Normal 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 current occupational status: unemployed How many Children do You have: 3 Feels Safe at Home: Yes Safety Concerns: Feels Safe At This Time Assistive Devices: Oxygen - at Night Review of Systems Review of Systems: A complete 10 point review of systems was reviewed with the patient with pertinent positives and negatives as per history of present illness. All else were negative. Physical Exam Physical Exam: VITAL SIGNS - Vital signs and nursing notes were reviewed. GENERAL - 65-year-old female appearing her stated age who is in no acute distress. Intubated and sedated. HEAD - NC/AT. EYES - EOMI bilaterally. EARS - No deformities of external structures noted on gross examination bilaterally. NOSE - Midline and without cyanosis. MOUTH/OROPHARYNX - ETT in place. Without perioral cyanosis. NECK - Neck with FROM. Supple to palpation. LUNGS - Chest wall symmetric without accessory muscle use, intercostals retractions, or central cyanosis. Normal vesicular breath sounds CTA B/L. No wheezes, rales, or rhonchi appreciated. CARDIAC - RRR with S1/S2. No murmur, rubs, or gallops appreciated. ABDOMEN - Abdominal contour flat without pulsations or visible masses. BS normoactive all four quadrants. No tenderness, palpable masses, hepatosplenomegaly, or ascites noted. EXTREMITIES - No clubbing or peripheral cyanosis. No pretibial edema present. +3/5 radial and dorsalis pedis pulses palpated throughout. +5/5 strength noted in UE/LE bilaterally. NEUROLOGIC - No focal neurological deficits appreciated. Exam limited secondary to sedation. Results & Data Results & Data ([facility]) Vital Signs (Past 12 Hours) Vital Signs Temp Pulse Pulse Resp BP BP Pulse Ox 07/20/21 03:40 99 07/20/21 03:30 89 23 99 07/20/21 03:05 83 21 100 07/20/21 03:00 83 21 173/94 H 100 07/20/21 02:55 76 21 100 07/20/21 02:50 80 22 173/95 H 100 07/20/21 02:49 85 21 100 07/20/21 02:45 81 22 100 07/20/21 02:40 83 17 100 07/20/21 02:35 86 21 100 07/20/21 02:30 88 20 100 07/20/21 02:25 86 22 100 07/20/21 02:20 81 22 100 07/20/21 02:15 83 23 100 07/20/21 02:10 88 21 176/86 H 100 07/20/21 02:05 86 17 100 07/20/21 02:00 87 18 169/90 H 100 07/20/21 01:55 87 22 100 07/20/21 01:50 85 23 100 07/20/21 01:45 78 23 100 07/20/21 01:40 77 22 100 07/20/21 01:35 81 25 H 100 07/20/21 01:30 81 24 166/92 H 100 07/20/21 01:25 83 25 H 100 07/20/21 01:20 75 23 100 07/20/21 01:10 84 19 169/88 H 100 07/20/21 00:45 80 24 159/90 H 100 07/20/21 00:40 84 27 H 100 07/20/21 00:35 85 28 H 154/82 H 99 07/20/21 00:30 90 27 H 98 07/20/21 00:25 93 H 26 H 97 07/20/21 00:20 97 H 15 93 07/20/21 00:18 98 07/20/21 00:15 99 H 14 173/91 H 87 L 07/20/21 00:10 111 H 28 H 80 L 07/20/21 00:06 110 H 37 H 85 L 07/20/21 00:00 36.6 C 111 H 111 H 36 H 204/120 H 80 L 07/19/21 23:55 118 H 36 H 85 L 07/19/21 23:50 116 H 38 H 07/19/21 23:49 115 H 36 H Coding Level of Care Code Critical Care 1st 30-74 mins Diagnoses Admitted to intensive care unit Z78.9 Acute respiratory failure with hypoxia J96.01 Flash pulmonary edema J81.0 CAD (coronary artery disease) I25.10 Status post insertion of drug-eluting stent into left anterior descending (LAD) artery Z95.5 DAVID (obstructive sleep apnea) G47.33 Ischemic cardiomyopathy I25.5 DMII (diabetes mellitus, type 2) E11.9 Acute on chronic systolic HF (heart failure) I50.23 Time Spent (min) 42
[2021-07-20] MEDS ORDERED: GLUCOSE 10 TABS/TUBE PO PRN (04:15)
[2021-07-20] MEDS: INSULIN ASPART PER UNIT SC SCH ×6 (04:48→20:24)
[2021-07-20] MEDS ORDERED: NITROGLYCERIN 2% OINTMENT 30GM TUBE EXT SCH (05:00)
[2021-07-20 05:44] LABS: Basophils # (auto) 0.01 K/uL (0-0.2); Basophils % (auto) 0.1 %; Eosinophils # (auto) 0.01 K/uL (0-0.5); Eosinophils % (auto) 0.1 %; Hematocrit (blood only) 30.5 % (37-47); Hemoglobin 9.4 g/dL (12.0-16.0); Immature Granulocytes # (auto) 0.03 K/uL (0.00-0.02); Immature Granulocytes % (auto) 0.4 %; Lymphocytes # (auto) 0.97 K/uL (1.2-3.4); Lymphocytes % (auto) 11.4 %; Mean Corpuscular Hemoglobin 29.7 pg (25-34); Mean Corpuscular Hgb Conc 30.8 g/dL (32-36); Mean Corpuscular Volume 96.5 fL (80-100); Mean Platelet Volume 10.4 fL (7.4-10.4); Monocytes # (auto) 0.35 K/uL (0.11-0.59); Monocytes % (auto) 4.1 %; Neutrophils # (auto) 7.12 K/uL (1.4-6.5); Neutrophils % (auto) 83.9 %; Platelet Count 209 K/uL (130-400); RDW Coefficient of Variation 14.3 % (11.5-14.5); RDW Standard Deviation 50.5 fL (36.4-46.3); Red Blood Count 3.16 M/uL (4.2-5.4); White Blood Count 8.49 K/uL (4.8-10.8)
[2021-07-20 05:45] LABS: iSTAT Allen Test Pass; iSTAT Arterial Blood Gas HCO3 25 meg/L (19-24); iSTAT Arterial Blood Gas pCO2 45 mmHg (35-46); iSTAT Arterial Blood Gas pH 7.35 (7.35-7.45); iSTAT Arterial Blood Gas pO2 136 mmHg (80-95); iSTAT Carbon Dioxide 27 mmol/L (24-31); iSTAT FiO2 50 %; iSTAT Site R Radial
[2021-07-20 06:18] LABS: Albumin Level 3.5 gm/dl (3.4-5.0); BUN Creatinine Ratio 32.5 (10-20); Bilirubin,Total 0.5 mg/dl (0.2-1.0); Calcium 8.5 mg/dl (8.5-10.1); Creatinine Clr Calc Pharmacy 77.2 ml/min; Est GFR (African American) 95.2 ml/min; Est GFR (Non-African American) 82.2 ml/min; Magnesium 1.4 mg/dl (1.7-2.4); Phosphorus 3.2 mg/dl (2.5-4.9); Potassium 4.2 mmol/L (3.5-5.1); Total Protein 6.5 gm/dl (6.0-8.3)
--- NOTE | 2021-07-20 06:33 | History and Physical Report ---
DATE OF ADMISSION: 07/20/2021. CHIEF COMPLAINT: Shortness of breath. HISTORY OF PRESENT ILLNESS: This is a 65-year-old female with past medical history significant for hyperlipidemia, female stress incontinence, type 2 diabetes, hypertension, obstructive sleep apnea, depression, diabetic polyneuropathy, GERD, history of ST elevated PA, status post stent, history of chronic systolic CHF, presents with shortness of breath. The patient was recently in the hospital in May with flash pulmonary edema at that time. Also found to have non-ST elevation PA, echo showed 25% to 30% EF and underwent cardiac catheterization on 06/18/2021 demonstrating severe mid LAD stenosis distal to previously implanted DORIAN. Underwent repeat drug-eluting stent implantation and she did okay and was discharged. Seen by followup with cardiology and there is plan for initiation of Entresto and also referred for sleep for sleep apnea. The patient lives with her . Daughter is in the room. Apparently, the patient was doing fine until 8:00 p.m. when she called the daughter and told she and her dad were not feeling well and feeling short of breath and by 10:00 the shortness of breath got worse and EMS was called and EMS brought her into the ER. She was saturating at 70% and as she had nausea and vomiting,she was not placed on BiPAP. She was placed in the high flow and she was not improving and she is status post intubated. Currently saturating okay on ventilator. Hemodynamically stable. Could not get much history from the daughter. As per daughter, she was doing fine until this event happened . Neighbor who check on her daily as per daughter also told her that she was doing okay until this episode. ALLERGIES: HYDROCODONE, MILK, PINE NUT, JARDIANCE, LACTULOSE, SEMAGLUTIDE,VACCINE ADJUVANT SYSTEM , VARICELLA ZOSTER VIRUS RECOMBINANT VACCINE. MEDICATIONS: The patient is on aspirin 81 mg p.o. daily, Lipitor 80 mg p.o. at bedtime, ezetimibe 10 mg p.o. daily, famotidine 20 mg p.o. b.i.d., gabapentin 200 mg p.o. t.i.d., lisinopril 5 mg p.o. b.i.d., metformin 500 mg p.o. b.i.d., metoprolol succinate 25 mg p.o. b.i.d., nitroglycerin 0.4 mg sublingual p.r.n., oxybutynin chloride 5 mg p.o. daily, Protonix 20 mg p.o. daily, Zoloft 100 mg p.o. a.m., Brilinta 90 mg p.o. b.i.d., torsemide 10 mg p.o. daily. PAST MEDICAL HISTORY: As mentioned above. PAST SURGICAL HISTORY: Carpal tunnel surgery, cardiac catheterization and stent placement, ligation of oviducts, partial removal of foot fascia, appendectomy, cholecystectomy, trigger finger release, total abdominal hysterectomy with removal of tubes. FAMILY HISTORY: Significant for mother has breast cancer, mother has diabetes; father has stroke, hypertension, heart disorder, hearing loss, diabetes; daughter has asthma; aunt has cancer. SOCIAL HISTORY: , former smoker, quit in 1977, smoked 2 packs a day for 20 years. No alcohol use. No drug use. REVIEW OF SYSTEMS: As per HPI. Rest of review of systems is negative. PHYSICAL EXAMINATION: GENERAL: The patient is status post intubated and sedated. VITAL SIGNS: Temperature 36.6, pulse 84, respiratory rate 19, blood pressure 169/88, oxygen was 70% when she came in, currently 100%, on ventilator. HEENT: Pupils equal, round and reactive to light. NECK: No JVD. No neck masses. CARDIOVASCULAR: S1 and S2 heard. Regular rate and rhythm. No murmur, no gallop. RESPIRATORY SYSTEM: Normal AP diameter. No accessory muscle use. Bilateral crackles heard. No wheezing. ABDOMEN: Soft, bowel sounds present, nontender, no distention. CENTRAL NERVOUS SYSTEM: Status post intubated and sedated. EXTREMITIES: Mild pedal edema present, no erythema seen. LABORATORY DATA: WBC 7.6, hemoglobin 9.9, hematocrit 31.7, platelets 298. Sodium 138, potassium 3.9, chloride 107, bicarbonate 22, BUN 26, creatinine 1.09, serum glucose 310, calcium 8.5, total bilirubin 0.4, AST 15, ALT 5, alkaline phosphatase 76, troponin I high sensitivity 18. Urinalysis, +3 protein, +3 glucose. SARS-CoV-2 RNA negative. IMAGING DATA: Chest x-ray, bilateral pulmonary edema. EKG: Sinus tachycardia at a rate of 113, right bundle-branch block, left anterior fascicular block, bifascicular block. ASSESSMENT AND PLAN: This is a 65-year-old female who presents with acute congestive heart failure. 1. Acute respiratory failure mostly secondary to acute systolic and diastolic congestive heart failure, ejection fraction was 25% to 30%, last echo in May of 2021. Received IV Lasix in the ER with about a liter of urine out as per ER.. Will continue IV Lasix 40 b.i.d. The patient is status post intubated in the ER. ICU care. Critical care consult. Vent Management as per critical care. Will Follow echocardiogram. Follow the repeat labs in the a.m. and consult cardiology in the a.m. for further recommendations. 2. Possible non-ST elevation myocardial infarction, possibly secondary to demand ischemia as high sensitivity troponin is 18.1. Will follow the repeat troponins, follow the echocardiogram. 3. History of coronary artery disease, status post stent to LAD in February 2020, in last May of 2021 again had a LAD drug-eluting stent. On aspirin, Brilinta, beta erickson, statin, and ezetimibe, which will be continued. Follow the echocardiogram, follow the serial enzymes. 4. Diabetes: Hold metformin. Placed on insulin sliding scale and Lantus and monitor the blood sugar and follow the HbA1c levels. 5. History of hypertension: Continue metoprolol, lisinopril. Will monitor the blood pressure. 6. History of obstructive sleep apnea. Needs followup with sleep study. Will do nocturnal pulse ox when the patient is stable in the hospital. 7. Female stress incontinence: Continue oxybutynin. 8. Hyperlipidemia: On statin. 9. Depression: On Zoloft. 10. Gastroesophageal reflux disease: On Pepcid. 11. Deep venous thrombosis prophylaxis: Placed on Lovenox. DISPOSITION: Closely monitor in the ICU. Level 1 full code. Expect to discharge home and follow with family doctor. Job ID: [id number] [facility] CENTERLeah
--- NOTE | 2021-07-20 06:48 | XRay Report ---
XR chest 1V portable CLINICAL HISTORY: Dyspnea COMPARISON STUDY: Chest radiograph July 20, 2021 at 12:00 AM. FINDINGS: Tip of endotracheal tube is 1.9 cm above the rona. Tip of nasogastric tube is below the l ower aspect of this image but at least within the body of the stomach. There is no pneumothorax. Smal l left pleural effusion is noted. Suspected small right pleural effusion is present. Extensive bilate ral airspace opacities with air bronchograms have progressed. There is interstitial thickening. Cardi omegaly is noted. IMPRESSION: 1. Tip of endotracheal tube 1.9 cm above the rona. 2. Progression of suspected severe pulmonary edema. An infectious process could appear similar althou gh is considered less likely. 3. Small bilateral pleural effusions. No pneumothorax. ACT 112: Negative or not required by law. Electronically signed by: Kevyn Duarte M.D. 07/20/2021 6:46 AM
--- NOTE | 2021-07-20 07:00 | XRay Report ---
XR chest 1V portable CLINICAL HISTORY: Shortness of breath. COMPARISON STUDY: Chest radiograph June 15, 2021. FINDINGS: There is no pneumothorax. Suspected small bilateral pleural effusions are noted. Lung volum es are diminished. There has been significant progression of extensive perihilar opacities which favo r alveolar edema. Interstitial thickening represents interstitial pulmonary edema. IMPRESSION: Significant progression of pulmonary edema. Suspected small bilateral pleural effusions. ACT 112: Negative or not required by law. Electronically signed by: Kevyn Duarte M.D. 07/20/2021 6:59 AM
[2021-07-20] MEDS ORDERED: INSULIN ASPART PER UNIT SC SCH (07:30)
--- NOTE | 2021-07-20 07:54 | Emergency Department Note ---
Impression & Plan Respiratory failure, Pulmonary edema, Acute non-ST elevation myocardial infarction (NSTEMI) [facility] NAME: MAEVE GARCIA AGE: 65 SEX: F ARRIVES VIA: Ambulance INFORMANT: Patient and EMS ED PROVIDER(S): Danna Serna DO CHIEF COMPLAINT: Shortness of breath and nausea PLAN: Disposition: Admit to the ICU Condition: Critical MEDICAL DECISION MAKING: This is a 65-year-old female patient who presents to the emergency department with worsening shortness of breath and and nausea. Patient had been here in May with flash pulmonary edema and had a stent placed. Today, the patient had progressively worsening shortness of breath presented to the emergency department with similar presentation and required endotracheal intubation for acute congestive heart failure. Patient has an elevated troponin consistent with an NSTEMI. She received IV Lasix and began to diurese with 800 mL of urine out while in the emergency department. [facility] will [facility] for further inpatient care. Triage Nursing notes reviewed and agree with them. Additional history obtained from the patient's daughter who arrived at the bedside Prior medical records reviewed Vital Signs: reviewed and remarkable for hypoxia and hypertension Differential diagnosis: COVID-19, pneumonia, pulmonary edema, pneumothorax, STEMI, NSTEMI ER treatment provided: RSI Endotracheal intubation IV Lasix Diagnostics interpreted by me: ECG: Sinus tachycardia at a rate of 108 with PVCs and right bundle branch block. There is no ST segment elevation or signs of acute ischemia Cardiac Monitoring: Sinus tachycardia at 111 Laboratory studies: See below Imaging studies: As per my interpretation Chest x-ray: Significant pulmonary edema HPI: 65/F arrives for evaluation of shortness of breath and nausea. The patient began to feel unwell throughout the day and had increasing shortness of breath and nausea. She called EMS as her shortness of breath continued to increase. Upon EMS arrival, the patient had O2 saturations in the high 80s they continued to decline throughout her transport here to the emergency department. She received IV Zofran from EMS and had increased O2 requirements throughout the transport. ROS: See above HPI for pertinent positives & negatives. A total of 10 systems reviewed and were otherwise negative. PAST MEDICAL HISTORY:See Below PAST SURGICAL HISTORY:See Below FAMILY HISTORY:See Below SOCIAL HISTORY:See Below HOME MEDICATIONS:See list ALLERGIES:See list VITALS:See Below PHYSICAL EXAMINATION: HEENT: Head - normocephalic and atraumatic. Pupils are equal, round, and reactive to light. Extraocular eye muscles are intact, and sclera are anicteric. Nose - moist nasal mucosa without discharge. Mouth - moist buccal mucosa. Oropharynx is nonerythematous and there is no tonsillar exudate or edema noted. Neck: Supple; no JVD or cervical lymphadenopathy Heart: Regular rate and rhythm. There is a normal S1 and S2 with no murmurs, clicks, or gallops appreciated. Lungs: Diffuse rales in all lung sung with absent breath sounds at the bases Abdomen: Soft, completely nontender, nondistended, with good bowel sounds. There are no palpable pulsatile masses or hepatosplenomegaly. There is no guarding, rigidity, or rebound noted. Extremities: Trace pedal edema there are easily palpable peripheral pulses. Skin: Pale, cool and diaphoretic with good turgor and no rashes. ED COURSE: The patient was evaluated in room 10 and determined to be in significant respiratory distress. The decision was quickly made to move the patient to room A1 for endotracheal intubation. A portable chest x-ray was performed which showed significant pulmonary edema with almost complete white out of the lung sung. An order was placed for continuous cardiac monitoring. The patient was in a sinus tachycardia at a rate of 111. A twelve-lead EKG was obtained as described above. Laboratory studies were drawn as above. Endotracheal Intubation Indication respiratory failure. The patient was on 100% oxygen via NRB prior to the procedure. Suction, airway equipment, RSI drugs, respiratory equipment, and appropriate personnel were prepared prior to the initiation of the procedure. A time out was taken. Induction was performed with etomidate-30 mg and succinylcholine-140 mg After observing the clinical benefit of the medications, the airway was easily visualized utilizing a glide scope. A 7.5 size ETT tube was placed atraumat ically to 23 cm cm using standard technique. The cuff inflated without signs of malfunction. There were bilateral breath sounds, positive colormetric change, no gastric sounds, and post procedure pulse oximetry was 82%. Post intubation sedation was administered using propofol. The patient's O2 saturation came up to 88%. We continue to increase the PEEP on the ventilator from 10-12 and the O2 saturations came up to 100%. A post intubation x-ray was performed and showed good placement with the endotracheal tube 2 cm above the rona. The patient's daughter arrived at the bedside and I kept her informed of the situation. [facility] I discussed the case with the critical care medicine service I have personally spent greater than 95 minutes of critical care time in the direct management of this patient. This includes bedside care, interpretation of diagnostic studies, and testing, discussion with consultants, patient, and family members, and other required patient management activities. This 95 minutes is in excess of all separately billable procedures. Danna Serna DO Past Med/Surg History Medical History Anemia Arthritis CAD (coronary artery disease) 02/2020-DORIAN x2 to mid LAD 04/2020 cardiac cath demonstrated patent stents and nonobstructive disease Depression Diabetic polyneuropathy DMII (diabetes mellitus, type 2) GERD (gastroesophageal reflux disease) HTN (hypertension) Ischemic cardiomyopathy DAVID (obstructive sleep apnea) STEMI (ST elevation myocardial infarction) Surgical History History of appendectomy History of carpal tunnel surgery Hx of cholecystectomy No pertinent past surgical history S/P arterial stent S/P FELA (total abdominal hysterectomy) Family History Other Deep vein thrombosis Social History Smoking Status: Former smoker Tobacco Type: Cigarettes Second Hand Exposure: No; Do You Dip or Chew Tobacco: No; Hx Alcohol Use: Yes Alcohol type: wine Hx Substance Use: No Preferred Language: Ukrainian Communication Ability: Effective Visual Impairment: No Limitations Hearing Ability: Normal Hot Kettle Tender Required: No Beliefs That Will Affect Care: None marital status: Current Living Situation: Spouse Current Living Situation Comment: The patient states that she lives with her child and their fianc. current occupational status: unemployed How many Children do You have: 3 Feels Safe at Home: Yes Safety Concerns: Feels Safe At This Time Assistive Devices: Oxygen - at Night Allergies Allergies Allergy/AdvReac Type Severity Reaction Status Date / Time hydrocodone Allergy Intermediate Hives Verified 07/20/21 00:26 milk Allergy Intermediate Hives Verified 07/20/21 00:26 pine nut Allergy Intermediate Hives Verified 07/20/21 00:26 empagliflozin AdvReac Intermediate DIARRHEA--PER Verified 07/20/21 00:26 [From Garett] GMG lactose AdvReac Intermediate Gastrointestinal Verified 07/20/21 00:26 Upset semaglutide AdvReac Intermediate Diarrhea Verified 07/20/21 00:26 vaccine adjuvant system, AdvReac Intermediate LETHARGIC, Verified 07/20/21 00:26 [id number] liposomal PAIN, [From Shingrix (PF)] FATIGUE varicella-zoster virus AdvReac Intermediate LETHARGIC, Verified 07/20/21 00:26 glycoprotein E, recombinant PAIN, [From Shingrix (PF)] FATIGUE Home Meds Home Medications Medication Instructions Recorded Confirmed atorvastatin 80 mg tablet (Lipitor) 80 mg PO HS 03/29/18 07/20/21 famotidine 20 mg tablet (Pepcid) 20 mg PO BID 12/26/19 07/20/21 oxybutynin chloride 5 mg tablet 5 mg PO DAILY 12/26/19 07/20/21 nitroglycerin 0.4 mg sublingual 0.4 mg SUBLINGUAL UD PRN 02/28/20 07/20/21 tablet (Nitrostat) sertraline 100 mg tablet (Zoloft) 100 mg PO QAM 02/28/20 07/20/21 aspirin 81 mg tablet,delayed 81 mg PO QAM 12/26/20 07/20/21 release (Aspirin Low Dose) metoprolol succinate 25 mg 25 mg PO BID 12/26/20 07/20/21 tablet,extended release 24 hr (Toprol XL) pantoprazole 20 mg tablet,delayed 20 mg PO DAILY 12/26/20 07/20/21 release (Protonix) gabapentin 100 mg capsule 200 mg PO TID 06/15/21 07/20/21 metformin 500 mg tablet,extended 500 mg PO BIDM 06/15/21 07/20/21 release 24 hr torsemide 10 mg tablet 10 mg PO DAILY 06/15/21 07/20/21 ezetimibe 10 mg tablet 10 mg PO DAILY 07/20/21 07/20/21 Previous Rx's Medication Instructions Recorded lisinopril 5 mg tablet (Zestril) 5 mg PO BID #60 tab 05/06/20 ticagrelor 90 mg tablet (Brilinta) 90 mg PO BID #60 tab 06/19/21 Results & Data (ED) Vital Signs Vital Signs - 24 hr 07/19/21 23:49 07/19/21 23:50 07/19/21 23:55 Temperature Temperature Source Pulse Rate 115 H 116 H 118 H Pulse Rate [Apical] Pulse Rate from SpO2 Sensor 118 H Pulse Rhythm Pulse Rhythm [Apical] Pulse Strength Pulse Strength [Apical] Respiratory Rate 36 H 38 H 36 H Respiratory Effort / Characteristics Respiratory Depth Blood Pressure Blood Pressure [Right Arm] Blood Pressure Mean Blood Pressure Mean [Right Arm] Blood Pressure Position [Right Arm] Pulse Oximetry 85 L Oxygen Delivery Method Fraction of Inspired Oxygen Sepsis Recent Fever Within 48 Hours Sepsis New/Unexplained Change in Mental Status Sepsis Action Taken by Nursing End-Tidal CO2 07/20/21 00:00 07/20/21 00:06 07/20/21 00:10 Temperature 36.6 C Temperature Source Oral Pulse Rate 111 H 110 H 111 H Pulse Rate [Apical] 111 H Pulse Rate from SpO2 Sensor 110 H 109 H Pulse Rhythm Regular Pulse Rhythm [Apical] Regular Pulse Strength Normal Pulse Strength [Apical] Normal Respiratory Rate 36 H 37 H 28 H Respiratory Effort / Characteristics Labored Short of Breath Respiratory Depth Shallow Blood Pressure Blood Pressure [Right Arm] 204/120 H Blood Pressure Mean Blood Pressure Mean [Right Arm] 148 Blood Pressure Position [Right Arm] Sitting Pulse Oximetry 80 L 85 L 80 L Oxygen Delivery Method High Flow Nasal Cannula Mechanical Vent Fraction of Inspired Oxygen Sepsis Recent Fever Within 48 Hours No Sepsis New/Unexplained Change in Mental Status No Sepsis Action Taken by Nursing No Action Required End-Tidal CO2 07/20/21 00:15 07/20/21 00:18 07/20/21 00:20 Temperature Temperature Source Pulse Rate 99 H 97 H Pulse Rate [Apical] Pulse Rate from SpO2 Sensor 99 H 97 H Pulse Rhythm Pulse Rhythm [Apical] Pulse Strength Pulse Strength [Apical] Respiratory Rate 14 15 Respiratory Effort / Characteristics Respiratory Depth Blood Pressure 173/91 H Blood Pressure [Right Arm] Blood Pressure Mean 118 Blood Pressure Mean [Right Arm] Blood Pressure Position [Right Arm] Pulse Oximetry 87 L 98 93 Oxygen Delivery Method Mechanical Vent Mechanical Vent Fraction of Inspired Oxygen 100 Sepsis Recent Fever Within 48 Hours Sepsis New/Unexplained Change in Mental Status Sepsis Action Taken by Nursing End-Tidal CO2 51 47 07/20/21 00:25 07/20/21 00:30 07/20/21 00:35 Temperature Temperature Source Pulse Rate 93 H 90 85 Pulse Rate [Apical] Pulse Rate from SpO2 Sensor 91 H 90 85 Pulse Rhythm Pulse Rhythm [Apical] Pulse Strength Pulse Strength [Apical] Respiratory Rate 26 H 27 H 28 H Respiratory Effort / Characteristics Respiratory Depth Blood Pressure 154/82 H Blood Pressure [Right Arm] Blood Pressure Mean 106 Blood Pressure Mean [Right Arm] Blood Pressure Position [Right Arm] Pulse Oximetry 97 98 99 Oxygen Delivery Method Mechanical Vent Fraction of Inspired Oxygen Sepsis Recent Fever Within 48 Hours Sepsis New/Unexplained Change in Mental Status Sepsis Action Taken by Nursing End-Tidal CO2 44 45 42 07/20/21 00:40 07/20/21 00:45 07/20/21 01:10 Temperature Temperature Source Pulse Rate 84 80 84 Pulse Rate [Apical] Pulse Rate from SpO2 Sensor 83 82 85 Pulse Rhythm Pulse Rhythm [Apical] Pulse Strength Pulse Strength [Apical] Respiratory Rate 27 H 24 19 Respiratory Effort / Characteristics Respiratory Depth Blood Pressure 159/90 H 169/88 H Blood Pressure [Right Arm] Blood Pressure Mean 113 115 Blood Pressure Mean [Right Arm] Blood Pressure Position [Right Arm] Pulse Oximetry 100 100 100 Oxygen Delivery Method Mechanical Vent Mechanical Vent Fraction of Inspired Oxygen Sepsis Recent Fever Within 48 Hours Sepsis New/Unexplained Change in Mental Status Sepsis Action Taken by Nursing End-Tidal CO2 40 40 38 07/20/21 01:20 07/20/21 01:25 07/20/21 01:30 Temperature Temperature Source Pulse Rate 75 83 81 Pulse Rate [Apical] Pulse Rate from SpO2 Sensor 81 82 81 Pulse Rhythm Pulse Rhythm [Apical] Pulse Strength Pulse Strength [Apical] Respiratory Rate 23 25 H 24 Respiratory Effort / Characteristics Respiratory Depth Blood Pressure 166/92 H Blood Pressure [Right Arm] Blood Pressure Mean 116 Blood Pressure Mean [Right Arm] Blood Pressure Position [Right Arm] Pulse Oximetry 100 100 100 Oxygen Delivery Method Fraction of Inspired Oxygen Sepsis Recent Fever Within 48 Hours Sepsis New/Unexplained Change in Mental Status Sepsis Action Taken by Nursing End-Tidal CO2 37 40 37 07/20/21 01:35 07/20/21 01:40 07/20/21 01:45 Temperature Temperature Source Pulse Rate 81 77 78 Pulse Rate [Apical] Pulse Rate from SpO2 Sensor 80 77 77 Pulse Rhythm Pulse Rhythm [Apical] Pulse Strength Pulse Strength [Apical] Respiratory Rate 25 H 22 23 Respiratory Effort / Characteristics Respiratory Depth Blood Pressure Blood Pressure [Right Arm] Blood Pressure Mean Blood Pressure Mean [Right Arm] Blood Pressure Position [Right Arm] Pulse Oximetry 100 100 100 Oxygen Delivery Method Fraction of Inspired Oxygen Sepsis Recent Fever Within 48 Hours Sepsis New/Unexplained Change in Mental Status Sepsis Action Taken by Nursing End-Tidal CO2 40 39 38 07/20/21 01:50 07/20/21 01:55 07/20/21 02:00 Temperature Temperature Source Pulse Rate 85 87 87 Pulse Rate [Apical] Pulse Rate from SpO2 Sensor 87 87 87 Pulse Rhythm Pulse Rhythm [Apical] Pulse Strength Pulse Strength [Apical] Respiratory Rate 23 22 18 Respiratory Effort / Characteristics Respiratory Depth Blood Pressure 169/90 H Blood Pressure [Right Arm] Blood Pressure Mean 116 Blood Pressure Mean [Right Arm] Blood Pressure Position [Right Arm] Pulse Oximetry 100 100 100 Oxygen Delivery Method Fraction of Inspired Oxygen Sepsis Recent Fever Within 48 Hours Sepsis New/Unexplained Change in Mental Status Sepsis Action Taken by Nursing End-Tidal CO2 38 40 39 07/20/21 02:05 07/20/21 02:10 07/20/21 02:15 Temperature Temperature Source Pulse Rate 86 88 83 Pulse Rate [Apical] Pulse Rate from SpO2 Sensor 85 87 82 Pulse Rhythm Pulse Rhythm [Apical] Pulse Strength Pulse Strength [Apical] Respiratory Rate 17 21 23 Respiratory Effort / Characteristics Respiratory Depth Blood Pressure 176/86 H Blood Pressure [Right Arm] Blood Pressure Mean 116 Blood Pressure Mean [Right Arm] Blood Pressure Position [Right Arm] Pulse Oximetry 100 100 100 Oxygen Delivery Method Fraction of Inspired Oxygen Sepsis Recent Fever Within 48 Hours Sepsis New/Unexplained Change in Mental Status Sepsis Action Taken by Nursing End-Tidal CO2 39 39 38 07/20/21 02:20 07/20/21 02:25 07/20/21 02:30 Temperature Temperature Source Pulse Rate 81 86 88 Pulse Rate [Apical] Pulse Rate from SpO2 Sensor 86 85 86 Pulse Rhythm Pulse Rhythm [Apical] Pulse Strength Pulse Strength [Apical] Respiratory Rate 22 22 20 Respiratory Effort / Characteristics Respiratory Depth Blood Pressure Blood Pressure [Right Arm] Blood Pressure Mean Blood Pressure Mean [Right Arm] Blood Pressure Position [Right Arm] Pulse Oximetry 100 100 100 Oxygen Delivery Method Fraction of Inspired Oxygen Sepsis Recent Fever Within 48 Hours Sepsis New/Unexplained Change in Mental Status Sepsis Action Taken by Nursing End-Tidal CO2 39 39 40 07/20/21 02:35 Temperature Temperature Source Pulse Rate 86 Pulse Rate [Apical] Pulse Rate from SpO2 Sensor 85 Pulse Rhythm Pulse Rhythm [Apical] Pulse Strength Pulse Strength [Apical] Respiratory Rate 21 Respiratory Effort / Characteristics Respiratory Depth Blood Pressure Blood Pressure [Right Arm] Blood Pressure Mean Blood Pressure Mean [Right Arm] Blood Pressure Position [Right Arm] Pulse Oximetry 100 Oxygen Delivery Method Fraction of Inspired Oxygen Sepsis Recent Fever Within 48 Hours Sepsis New/Unexplained Change in Mental Status Sepsis Action Taken by Nursing End-Tidal CO2 39 Laboratory Data Result diagrams: 07/21/21 03:59 07/21/21 03:59 Lab Results 07/20/21 07/20/21 07/20/21 Range/Units 00:18 00:41 00:58 WBC (4.8-10.8) K/uL RBC (4.2-5.4) M/uL Hgb (12.0-16.0) g/dL Hct (37-47) % MCV (80-100) fL MCH (25-34) pg MCHC (32-36) g/dL RDW Std Deviation (36.4-46.3) fL RDW Coeff of Ronaldo (11.5-14.5) % Plt Count (130-400) K/uL MPV (7.4-10.4) fL Neutrophils % (Manual) % Lymphocytes % (Manual) % Monocytes % (Manual) % Eosinophils % (Manual) % Basophils % (Manual) % Neutrophils # (Manual) (1.4-6.5) K/uL Total Absolute Neuts (1.4-6.5) K/uL Lymphocytes # (Manual) (1.2-3.4) K/uL Total Abs Lymphocytes (1.2-3.4) K/uL Monocytes # (Manual) (0.11-0.59) K/uL Eosinophils # (Manual) (0-0.5) K/uL Basophils # (Manual) (0-0.2) K/uL Polychromasia Echinocytes Sodium 138 (136-145) mmol/L Potassium 3.9 (3.5-5.1) mmol/L Chloride 107 (98-107) mmol/L Carbon Dioxide 22 (21-32) mmol/L Anion Gap 9 (3-11) BUN 26 H (6-23) mg/dl Creatinine 1.09 (0.6-1.2) mg/dl Est Cr Clr Drug Dosing 56.5 ml/min Est GFR ( Amer) 62.6 ml/min Est GFR (Non-Af Amer) 54.0 ml/min BUN/Creatinine Ratio 23.9 H (10-20) Glucose 310 H* (70-99(Fasting)) mg/dl Calcium 8.5 (8.5-10.1) mg/dl Total Bilirubin 0.4 (0.2-1.0) mg/dl AST 15 (13-39) U/L ALT 5 L (7-52) U/L Alkaline Phosphatase 76 (34-104) U/L Troponin I High Sens 18.1 H (0-14) pg/ml Total Protein 7.3 (6.0-8.3) gm/dl Albumin 4.0 (3.4-5.0) gm/dl Globulin 3.3 (2.5-4.0) gm/dl Albumin/Globulin Ratio 1.2 (0.9-2) Urine Color Yellow Urine Appearance Clear (Clear) Urine pH 5.0 (4.5-7.5) Ur Specific [place] 1.017 (1.000-1.030) Urine Protein 3+ H (Negative) Urine Glucose (UA) 3+ H (Negative) Urine Ketones Negative (Negative) Urine Blood 1+ H (Negative) Urine Nitrite Negative (Negative) Urine Bilirubin Negative (Negative) Urine Urobilinogen Negative (Negative) Ur Leukocyte Esterase Negative (Negative) Urine WBC (Auto) 1-5 (0-5) /hpf Urine RBC (Auto) 0-4 (0-4) /hpf U Hyaline Cast (Auto) 1-5 (0-5) /lpf U Epithel Cells (Auto) 10-20 H (0-5) /lpf Urine Bacteria (Auto) Negative (Negative) SARS-CoV-2, RNA, NAAT NEGATIVE (NEGATIVE) 07/20/21 Range/Units 01:11 WBC 7.68 (4.8-10.8) K/uL RBC 3.27 L (4.2-5.4) M/uL Hgb 9.9 L (12.0-16.0) g/dL Hct 31.7 L (37-47) % MCV 96.9 (80-100) fL MCH 30.3 (25-34) pg MCHC 31.2 L (32-36) g/dL RDW Std Deviation 50.8 H (36.4-46.3) fL RDW Coeff of Ronaldo 14.5 (11.5-14.5) % Plt Count 298 (130-400) K/uL MPV 11.1 H (7.4-10.4) fL Neutrophils % (Manual) 62.7 % Lymphocytes % (Manual) 31.0 % Monocytes % (Manual) 2.7 % Eosinophils % (Manual) 1.8 % Basophils % (Manual) 1.8 % Neutrophils # (Manual) 4.82 (1.4-6.5) K/uL Total Absolute Neuts 4.82 (1.4-6.5) K/uL Lymphocytes # (Manual) 2.38 (1.2-3.4) K/uL Total Abs Lymphocytes 2.38 (1.2-3.4) K/uL Monocytes # (Manual) 0.21 (0.11-0.59) K/uL Eosinophils # (Manual) 0.14 (0-0.5) K/uL Basophils # (Manual) 0.14 (0-0.2) K/uL Polychromasia 1+ Echinocytes 1+ Sodium (136-145) mmol/L Potassium (3.5-5.1) mmol/L Chloride (98-107) mmol/L Carbon Dioxide (21-32) mmol/L Anion Gap (3-11) BUN (6-23) mg/dl Creatinine (0.6-1.2) mg/dl Est Cr Clr Drug Dosing ml/min Est GFR ( Amer) ml/min Est GFR (Non-Af Amer) ml/min BUN/Creatinine Ratio (10-20) Glucose (70-99(Fasting)) mg/dl Calcium (8.5-10.1) mg/dl Total Bilirubin (0.2-1.0) mg/dl AST (13-39) U/L ALT (7-52) U/L Alkaline Phosphatase (34-104) U/L Troponin I High Sens (0-14) pg/ml Total Protein (6.0-8.3) gm/dl Albumin (3.4-5.0) gm/dl Globulin (2.5-4.0) gm/dl Albumin/Globulin Ratio (0.9-2) Urine Color Urine Appearance (Clear) Urine pH (4.5-7.5) Ur Specific [place] (1.000-1.030) Urine Protein (Negative) Urine Glucose (UA) (Negative) Urine Ketones (Negative) Urine Blood (Negative) Urine Nitrite (Negative) Urine Bilirubin (Negative) Urine Urobilinogen (Negative) Ur Leukocyte Esterase (Negative) Urine WBC (Auto) (0-5) /hpf Urine RBC (Auto) (0-4) /hpf U Hyaline Cast (Auto) (0-5) /lpf U Epithel Cells (Auto) (0-5) /lpf Urine Bacteria (Auto) (Negative) SARS-CoV-2, RNA, NAAT (NEGATIVE) Administered Medications Aspirin (Aspirin 81 Mg Chew) 81 mg PO QAM GLYNN Stop: 08/19/21 08:59 Last Admin: 07/21/21 07:33 Dose: 81 mg Documented by: [id number] Admin: 07/20/21 10:33 Dose: 81 mg Documented by: [id number] Atorvastatin Calcium (Atorvastatin 40 Mg Tab) 80 mg PO HS GLYNN Stop: 08/19/21 20:59 Last Admin: 07/20/21 20:09 Dose: 80 mg Documented by: [id number] Ezetimibe (Ezetimibe 10 Mg Tablet) 10 mg PO DAILY GLYNN Stop: 08/19/21 08:59 Last Admin: 07/21/21 07:31 Dose: 10 mg Documented by: [id number] Admin: 07/20/21 08:48 Dose: 10 mg Documented by: [id number] Enoxaparin Sodium (Enoxaparin Inj 40 Mg/0.4 Ml Syr) 40 mg SQ Q24H GLYNN Stop: 08/19/21 08:59 Last Admin: 07/21/21 07:31 Dose: 40 mg Documented by: [id number] Admin: 07/20/21 08:47 Dose: 40 mg Documented by: [id number] Famotidine (Famotidine 20 Mg Tab) 20 mg PO BID GLYNN Stop: 08/19/21 08:59 Last Admin: 07/21/21 07:30 Dose: 20 mg Documented by: [id number] Admin: 07/20/21 20:09 Dose: 20 mg Documented by: [id number] Admin: 07/20/21 08:48 Dose: 20 mg Documented by: [id number] Gabapentin (Gabapentin 100 Mg Cap) 200 mg PO TID GLYNN Stop: 08/20/21 14:29 Last Admin: 07/21/21 14:40 Dose: 200 mg Documented by: [id number] Insulin Aspart (Insulin Aspart Per Unit) 0 units SC Q4 [facility] Stop: 08/19/21 07:59 Last Admin: 07/21/21 15:01 Dose: Not Given Documented by: [id number] Admin: 07/21/21 11:37 Dose: Not Given Documented by: [id number] Admin: 07/21/21 07:58 Dose: Not Given Documented by: [id number] Admin: 07/21/21 04:04 Dose: 1 units Documented by: [id number] Cosigned by: [id number] Admin: 07/21/21 00:48 Dose: 1 units Documented by: [id number] Cosigned by: [id number] Admin: 07/20/21 20:24 Dose: Not Given Documented by: [id number] Admin: 07/20/21 18:01 Dose: Not Given Documented by: [id number] Cosigned by: [id number] Admin: 07/20/21 12:14 Dose: Not Given Documented by: [id number] Cosigned by: [id number] Admin: 07/20/21 08:46 Dose: 3 units Documented by: [id number] Cosigned by: [id number] Lansoprazole (Lansoprazole 30 Mg Soltab) 30 mg NG DAILY [facility] Stop: 08/19/21 10:14 Last Admin: 07/21/21 07:30 Dose: 30 mg Documented by: [id number] Admin: 07/20/21 12:13 Dose: 30 mg Documented by: [id number] Lisinopril (Lisinopril 10 Mg Tab) 10 mg PO DAILY [facility] Stop: 08/21/21 08:59 Last Admin: 07/21/21 08:35 Dose: Not Given Documented by: [id number] Metoprolol Succinate (Metoprolol Succ 25mg Ext Rel Tab) 25 mg PO BID [facility] Stop: 08/20/21 10:29 Last Admin: 07/21/21 11:34 Dose: 25 mg Documented by: [id number] Miscellaneous (Icu Electrolyte Replacement Protocol) 1 ea N/A BID@,18 [facility]; Protocol Stop: 07/27/21 17:59 Last Admin: 07/21/21 17:30 Dose: Not Given Documented by: [id number] Admin: 07/21/21 06:08 Dose: 1 ea Documented by: [id number] Admin: 07/20/21 18:30 Dose: 1 ea Documented by: [id number] Oxybutynin Chloride (Oxybutynin Chloride 5 Mg Tab) 5 mg PO DAILY GLYNN Stop: 08/19/21 08:59 Last Admin: 07/21/21 07:30 Dose: 5 mg Documented by: [id number] Admin: 07/20/21 08:47 Dose: 5 mg Documented by: [id number] Propofol (Propofol Bolus From Bag) 20 mg IV Q5M PRN PRN Reason: Sedation Stop: 07/23/21 00:56 Last Admin: 07/20/21 02:48 Dose: 20 mg Documented by: [id number] Cosigned by: [id number] Sertraline HCl (Sertraline Hcl 100 Mg Tablet) 100 mg PO QAM GLYNN Stop: 08/19/21 08:59 Last Admin: 07/21/21 07:30 Dose: 100 mg Documented by: [id number] Admin: 07/20/21 08:48 Dose: 100 mg Documented by: [id number] Ticagrelor (Ticagrelor 90 Mg Tab) 90 mg PO BID GLYNN Stop: 08/19/21 08:59 Last Admin: 07/21/21 07:30 Dose: 90 mg Documented by: [id number] Admin: 07/20/21 20:07 Dose: 90 mg Documented by: [id number] Admin: 07/20/21 08:47 Dose: 90 mg Documented by: [id number] Discontinued Medications Furosemide (Furosemide 40 Mg/4 Ml Vial) 40 mg IV ONE ONE Stop: 07/20/21 00:19 Last Admin: 07/20/21 00:47 Dose: 40 mg Documented by: [id number] Furosemide (Furosemide 40 Mg/4 Ml Vial) 40 mg IV BID GLYNN Stop: 08/19/21 08:59 Last Admin: 07/21/21 07:34 Dose: 40 mg Documented by: [id number] Admin: 07/20/21 20:09 Dose: 40 mg Documented by: [id number] Admin: 07/20/21 08:48 Dose: 40 mg Documented by: [id number] Gabapentin (Gabapentin 250 Mg/5 Ml 470 Ml Btl) 200 mg PO TID GLYNN Stop: 08/19/21 08:59 Last Admin: 07/21/21 14:39 Dose: Not Given Documented by: [id number] Admin: 07/21/21 07:30 Dose: 200 mg Documented by: [id number] Admin: 07/20/21 20:08 Dose: 200 mg Documented by: [id number] Admin: 07/20/21 13:22 Dose: 200 mg Documented by: [id number] Admin: 07/20/21 10:33 Dose: 200 mg Documented by: [id number] Hydralazine HCl (Hydralazine Hcl 20 Mg/Ml Vial) 5 mg IV Q4H PRN PRN Reason: PRN SBP > 150 Stop: 08/20/21 08:17 Last Admin: 07/21/21 08:37 Dose: 5 mg Documented by: [id number] Propofol (Diprivan) 1,000 mg in 100 mls @ 20.16 mls/hr IV .Q4H58M [facility]; Protocol Stop: 07/23/21 00:59 Last Titration: 07/21/21 07:33 Dose: 0 mcg/kg/min, 0 mls/hr Documented by: [id number] Titration: 07/21/21 07:03 Dose: 40 mcg/kg/min, 20.2 mls/hr Documented by: [id number] Cosigned by: [id number] Admin: 07/21/21 03:59 Dose: 40 mcg/kg/min, 20.2 mls/hr Documented by: [id number] Cosigned by: [id number] Titration: 07/21/21 03:19 Dose: 40 mcg/kg/min, 20.2 mls/hr Documented by: [id number] Cosigned by: [id number] Admin: 07/20/21 22:21 Dose: 40 mcg/kg/min, 20.2 mls/hr Documented by: [id number] Cosigned by: [id number] Titration: 07/20/21 22:21 Dose: 40 mcg/kg/min, 20.2 mls/hr Documented by: [id number] Cosigned by: [id number] Admin: 07/20/21 18:37 Dose: 40 mcg/kg/min, 20.2 mls/hr Documented by: [id number] Cosigned by: [id number] Titration: 07/20/21 18:22 Dose: 40 mcg/kg/min, 20.2 mls/hr Documented by: [id number] Cosigned by: [id number] Admin: 07/20/21 13:24 Dose: 40 mcg/kg/min, 20.2 mls/hr Documented by: [id number] Cosigned by: [id number] Titration: 07/20/21 13:09 Dose: 40 mcg/kg/min, 20.2 mls/hr Documented by: [id number] Cosigned by: [id number] Admin: 07/20/21 08:11 Dose: 40 mcg/kg/min, 20.2 mls/hr Documented by: [id number] Cosigned by: [id number] Titration: 07/20/21 08:10 Dose: 40 mcg/kg/min, 20.2 mls/hr Documented by: [id number] Cosigned by: [id number] Titration: 07/20/21 05:33 Dose: 40 mcg/kg/min, 20.2 mls/hr Documented by: [id number] Titration: 07/20/21 05:24 Dose: 45 mcg/kg/min, 22.7 mls/hr Documented by: [id number] Admin: 07/20/21 04:37 Dose: 50 mcg/kg/min, 25.2 mls/hr Documented by: [id number] Cosigned by: [id number] Titration: 07/20/21 04:37 Dose: 50 mcg/kg/min, 25.2 mls/hr Documented by: [id number] Cosigned by: [id number] Titration: 07/20/21 01:13 Dose: 50 mcg/kg/min, 25.2 mls/hr Documented by: [id number] Admin: 07/20/21 00:15 Dose: 20 mcg/kg/min, 10.1 mls/hr Documented by: [id number] Cosigned by: [id number] Acetaminophen (Ofirmev) 1,000 mg in 100 mls @ 400 mls/hr IV Q8H PRN PRN Reason: Fever/Mild Pain (Pain 1,2,3) Stop: 07/23/21 03:53 Last Infusion: 07/20/21 22:32 Dose: 0 mls/hr Documented by: [id number] Admin: 07/20/21 22:17 Dose: 400 mls/hr Documented by: [id number] Magnesium Sulfate/Dextrose (Magnesium Sulfate / D5w) 1 gm in 100 mls @ 50 mls/hr IV Q2H GLYNN Stop: 07/20/21 19:29 Last Infusion: 07/20/21 20:25 Dose: 0 mls/hr Documented by: [id number] Admin: 07/20/21 18:05 Dose: 50 mls/hr Documented by: [id number] Infusion: 07/20/21 16:56 Dose: 50 mls/hr Documented by: [id number] Admin: 07/20/21 14:56 Dose: 50 mls/hr Documented by: [id number] Infusion: 07/20/21 14:55 Dose: 0 mls/hr Documented by: [id number] Admin: 07/20/21 13:01 Dose: 50 mls/hr Documented by: [id number] Infusion: 07/20/21 13:00 Dose: 50 mls/hr Documented by: [id number] Admin: 07/20/21 11:34 Dose: 50 mls/hr Documented by: [id number] Potassium Chloride (K Jesus / Wtr) 10 meq in 100 mls @ 100 mls/hr IV Q1H GLYNN Stop: 07/21/21 10:14 Last Infusion: 07/21/21 10:44 Dose: 0 mls/hr Documented by: [id number] Admin: 07/21/21 09:42 Dose: 100 mls/hr Documented by: [id number] Infusion: 07/21/21 09:37 Dose: 100 mls/hr Documented by: [id number] Admin: 07/21/21 08:37 Dose: 100 mls/hr Documented by: [id number] Infusion: 07/21/21 08:33 Dose: 100 mls/hr Documented by: [id number] Admin: 07/21/21 07:33 Dose: 100 mls/hr Documented by: [id number] Infusion: 07/21/21 07:26 Dose: 100 mls/hr Documented by: [id number] Admin: 07/21/21 06:26 Dose: 100 mls/hr Documented by: [id number] Insulin Aspart (Insulin Aspart Per Unit) 0 units SC Q6 GLYNN Stop: 08/19/21 04:29 Last Admin: 07/20/21 10:34 Dose: Not Given Documented by: [id number] Cosigned by: [id number] Admin: 07/20/21 04:48 Dose: 6 units Documented by: [id number] Cosigned by: [id number] Lisinopril (Lisinopril 5 Mg Tab) 5 mg PO BID GLYNN Stop: 08/19/21 08:59 Last Admin: 07/20/21 08:48 Dose: 5 mg Documented by: [id number] Lisinopril (Lisinopril 10 Mg Tab) 10 mg PO BID GLYNN Stop: 08/19/21 20:59 Last Admin: 07/21/21 07:30 Dose: 10 mg Documented by: [id number] Admin: 07/20/21 20:08 Dose: 10 mg Documented by: [id number] Metoprolol Succinate (Metoprolol Succ 25mg Ext Rel Tab) 25 mg PO BID GLYNN Stop: 08/19/21 08:59 Last Admin: 07/20/21 10:34 Dose: Not Given Documented by: [id number] Metoprolol Tartrate (Metoprolol Tartrate 25 Mg Tab) 12.5 mg PO Q6 GLYNN Stop: 08/19/21 11:59 Last Admin: 07/21/21 09:00 Dose: 12.5 mg Documented by: [id number] Admin: 07/21/21 06:10 Dose: Not Given Documented by: [id number] Admin: 07/21/21 00:51 Dose: Not Given Documented by: [id number] Admin: 07/20/21 18:31 Dose: 12.5 mg Documented by: [id number] Admin: 07/20/21 13:21 Dose: 12.5 mg Documented by: [id number] Miscellaneous (Rapid Sequence Induction Bag) Confirm Administered Dose 1 ea .ROUTE .STK-MED ONE Stop: 07/19/21 23:58 Last Admin: 07/20/21 01:11 Dose: Not Given Documented by: [id number] Miscellaneous (Stat Iv Infusion Titration Per Protocol) 1 ea N/A NOW STA Stop: 07/20/21 00:58 Last Admin: 07/20/21 02:16 Dose: Not Given Documented by: [id number] Miscellaneous Information (Dc All Previously Ordered Diabetes Meds) 1 ea N/A ONE ONE Stop: 07/20/21 03:59 Last Admin: 07/20/21 07:53 Dose: Not Given Documented by: [id number] Nitroglycerin (Nitroglycerin 2% Ointment 30gm Tube) 1 inch EXT Q6H GLYNN Stop: 08/19/21 03:59 Last Admin: 07/20/21 04:48 Dose: 1 inch Documented by: [id number] Pantoprazole Sodium (Pantoprazole 40 Mg Tab) 40 mg PO DAILY [facility] Stop: 08/19/21 08:59 Last Admin: 07/20/21 10:35 Dose: Not Given Documented by: [id number] Propofol (Propofol Iv Emulsion 10 Mg/Ml 100 Ml Vial) Confirm Administered Dose 1,000 mg IV .Verosee-[employer] ONE Stop: 07/20/21 00:12 Last Admin: 07/20/21 01:12 Dose: Not Given Documented by: [id number] Imaging Data Radiologist's Impression: Chest X-Ray 07/19/21 23:56 XR chest 1V portable CLINICAL HISTORY: Shortness of breath. COMPARISON STUDY: Chest radiograph June 15, 2021. FINDINGS: There is no pneumothorax. Suspected small bilateral pleural effusions are noted. Lung volumes are diminished. There has been significant progression of extensive perihilar opacities which favor alveolar edema. Interstitial thickening represents interstitial pulmonary edema. IMPRESSION: Significant progression of pulmonary edema. Suspected small bilateral pleural effusions. ACT 112: Negative or not required by law. Electronically signed by: Kevyn Duarte M.D. 07/20/2021 6:59 AM Chest X-Ray 07/20/21 00:18 XR chest 1V portable CLINICAL HISTORY: Dyspnea COMPARISON STUDY: Chest radiograph July 20, 2021 at 12:00 AM. FINDINGS: Tip of endotracheal tube is 1.9 cm above the rona. Tip of nasogastric tube is below the lower aspect of this image but at least within the body of the stomach. There is no pneumothorax. Small left pleural effusion is noted. Suspected small right pleural effusion is present. Extensive bilateral airspace opacities with air bronchograms have progressed. There is interstitial thickening. Cardiomegaly is noted. IMPRESSION: 1. Tip of endotracheal tube 1.9 cm above the rona. 2. Progression of suspected severe pulmonary edema. An infectious process could appear similar although is considered less likely. 3. Small bilateral pleural effusions. No pneumothorax. ACT 112: Negative or not required by law. Electronically signed by: Kevyn Duarte M.D. 07/20/2021 6:46 AM Discharge Plan Visit Data Chief Complaint: Shortness of Breath/Dyspnea Stated Complaint: SOB ED Provider: Danna Serna Discharge Problem: Respiratory failure, Pulmonary edema, Acute non-ST elevation myocardial infarction (NSTEMI) Patient Disposition: Admitted As Inpatient Discharge Instructions Interventions: ED Discharge Assessment Last Done: 07/20/21 03:11 Discharge Problem: Respiratory failure Qualifiers: Chronicity: acute Respiratory failure complication: hypoxia Qualified Code(s): J96.01 - Acute respiratory failure with hypoxia Pulmonary edema Qualifiers: Chronicity: acute Qualified Code(s): J81.0 - Acute pulmonary edema
--- NOTE | 2021-07-20 08:09 | XRay Report ---
XR chest 1V portable HISTORY: Shortness of breath. Follow-up. COMPARISON: Chest 07/20/2021. FINDINGS: Significant improvement of the bilateral airspace opacities. No pneumothorax. Small bilater al pleural effusions are again noted. The heart remains top normal in size. Nasogastric tube terminat es below the diaphragm. The tip is not included on this study. Endotracheal tube terminates 9 mm from the rona. This should be pulled back by approximately 1 to 2 m. IMPRESSION: 1. Significant improvement in the bilateral airspace opacities/edema. 2. Endotracheal tube terminates 9 from and the rona. This should be pulled back by approximately 1 to 2 cm. 3. Small bilateral pleural effusions persist. 4. This report was called/faxed to the referring physician following dictation. ACT 112: Negative or not required by law. Electronically signed by: Nicholas Lombardo M.D. 07/20/2021 8:08 AM
[2021-07-20] MEDS: OXYBUTYNIN CHLORIDE 5 MG TAB PO SCH (08:47)
[2021-07-20] MEDS: TICAGRELOR 90 MG TAB PO SCH ×2 (08:47→20:07)
[2021-07-20] MEDS: ENOXAPARIN INJ 40 MG/0.4 ML SYR SQ SCH (08:47)
[2021-07-20] MEDS: FAMOTIDINE 20 MG TAB PO SCH ×2 (08:48→20:09)
[2021-07-20] MEDS: EZETIMIBE 10 MG TABLET PO SCH (08:48)
[2021-07-20] MEDS: FUROSEMIDE 40 MG/4 ML VIAL IV SCH ×2 (08:48→20:09)
[2021-07-20] MEDS: SERTRALINE HCL 100 MG TABLET PO SCH (08:48)
[2021-07-20] MEDS ORDERED: ASPIRIN 81 MG ECTAB PO SCH (09:00)
[2021-07-20] MEDS ORDERED: ICU PROTOCOL FOR HYPERGLYCEMIA SCH (09:00)
[2021-07-20] MEDS ORDERED: METOPROLOL SUCC 25MG EXT REL TAB PO SCH (09:00)
[2021-07-20] MEDS ORDERED: GABAPENTIN 100 MG CAP PO SCH (09:00)
[2021-07-20] MEDS ORDERED: lisinopril 5 MG TAB PO SCH (09:00)
[2021-07-20] MEDS ORDERED: GABAPENTIN 250 MG/5 ML 470 ML BTL PO SCH (09:00)
[2021-07-20] MEDS ORDERED: INSULIN GLARGINE SOLOSTAR 100 UNITS/ML 3 ML PEN SC SCH (09:00)
[2021-07-20] MEDS ORDERED: PANTOprazole 40 MG TAB PO SCH (09:00)
--- NOTE | 2021-07-20 10:15 | Communication Note ---
Date of Service: July 20, 2021 Patient seen and examined. EMR reviewed. Discussed on multidisciplinary rounds and with family practice resident as well as with critical care ELIS. The patient has flash pulmonary edema with decreased ejection fraction. Her chest x-ray has markedly improved with application of positive airway pressure and diuretics. Discussed with cardiology at bedside today. We will change her metoprolol to tartrate 12.5 mg every 6 and defer consideration for carvedilol to them. Discontinue Nitropaste and advance ERA inhibitor to 10 mg lisinopril twice a day. Increasing troponin per cardiology. Unclear if she requires reevaluation of her coronary anatomy. 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 Anticipate that we should be able to get her liberated from the ventilator within the next 12 to 24hours so we will hold off on enteric feeding. Medications were reviewed. The patient remains critically ill at this point time although she is significantly improved. There is significant possibility of loss of function and clinical deterioration. No family at bedside. Additional critical care time, 47 minutes Coding Level of Care Code Critical Care kirstie porras'l 30 min Comment [id number]
[2021-07-20] MEDS: ASPIRIN 81 MG CHEW PO SCH (10:33)
[2021-07-20] MEDS: GABAPENTIN 250 MG/5 ML 470 ML BTL PO SCH ×3 (10:33→20:08)
--- NOTE | 2021-07-20 10:35 | Cardiology Consultation ---
Date of Consultation July 20, 2021 Assessment & Plan (1) Acute respiratory failure with hypoxia: (2) Flash pulmonary edema: (3) Acute on chronic systolic HF (heart failure): (4) Bifascicular block: -Pt required endotracheal intubation for what appears to be recurrent flash pulmonary edema episode. Noted recent weight gain , however per bystander description of patient with acute "panic" and acute respiratory compromise along with chest X-ray findings certainly flash pulmonary edema event seems likely. At time of presentation in May,, symptoms rapidly improved with IV diuretic therapy. By the time pt had contact with medical care with this episode , respiratory failure had already occurred. HS Troponin of 18.1 pg/ml at 12:18 am, and 112 pg/ml 8 hours later, so has progressed , but not to the extent that her (low sensitivity) Troponin increased in May (levels of 0.08 ng/ml then the progressed to 6.9 and 11.6 ng/ml over 20 hr span. Echocardiogram with interval further decline in LVEF from 25-30% to 20-25% with apical akinesis and generalized worsening LV function compared to May,. Echo findings raise concern of for lack of viability of distal LAD territory at this time, compared to prior presentation. Patient did present with BP of 204/120 and therefore hypertension related event is a consideration or progression of her CAD. SARS-CoV-2 screen negative. Diagnostics: Trend troponin, repeat EKG. Therapeutics: Plan on optimizing volume status, furosemide 40 mg IV BID, topical nitrates, metoprolol tartrate for now for ease of titration, although transition to carvedilol. Continue Atorvastatin, ezetimibe. Continue, ASA and Brilinta. Await EKG , as if ischemic changes noted on repeat will have low threshold for adding UF heparin. For now, continue DVT prophylaxis dose lovenox. Replace magnesium (level of 1.4 this am) electrolyte protocol in place. Wean ventilator support as tolerated. Discussed case with patient's nurse and with Dr Louise. Dr Ozzie bates 07/21/21. History of Present Illness Attending Physician: Jose Chiu MD History of Present Illness Aida Willis is a 65 year old female seen in cardiology consultation per the request of DR Wakefield for the evaluation of acute on chronic heart failure with reduced ejections fraction. Patient is well known to our cardiology service. History obtained per review of her record, and interview with her daughter , Nathaly, by phone. Nathaly is typically involved in the patient's care, however, she is actually out of town and in [place]. Per her description she has been in contact with the patient this week and the patient had experienced an 8 lb weight gain and felt that her torsemide was not working. She had taken an extra dose without improvement. Last evening neighbors called EMS after patient experienced progressive shortness of breath. On arrival of EMS at about 8 pm last evening patient was found to by hypoxic with saturation of 70%. She experienced nausea and vomiting.Chest X-ray on arrival revealed severe pulmonary edema and due to acute respiratory failure patient was intubated in the ED. She received 40 mg of IV furosemide in the ED and a second dose in the ICU at 8:48 am. 1.6 L of urine output noted thus fare and oxygen saturations stable on mechanical ventilation with interval improvement in her chest X-ray. Cardiac History: 1. History of hypertensive urgency 2. Cardiac cath in Jan 2020 revealing moderate non obstructive disease with i ntermediate mid LAD lesion which was felt to not be hemodynamically significant by FFR assessment. 3. Anterior STEMI in February 2020 with 2 DORIAN placed to treat 100% occlusion to the LAD, LVEF 40-45% at that time 4. Repeat cath in Apr 2020 due to recurrent chest pain, revealing patent stents to the LAD and non obstructive disease. LVEF 45-50% at that time 5. Dyslipidemia 6. Presentation 06/15/21, with flash pulmonary edema pattern, interval decline in LVEF to 25-30%, NSTEMI Troponin I peaked at 11.6 ng/ml at that time. Cardiac catheterization 06/18/21 yielding 60% in-stent stenosis near the distal end of the mid LAD stent followed by focal 80% mid LAD stenosis. Patient underwent successful PCI of mid LAD with single drug-eluting stent (2.75 x 23 mm Xience; postdilated with 3.0 NC) overlapping distal half of prior mid LAD stent. Non culprit non obstructive CAD noted elsewhere / small branch vessel disease. Allergies Allergy/AdvReac Type Severity Reaction Status Date / Time hydrocodone Allergy Intermediate Hives Verified 07/20/21 00:26 milk Allergy Intermediate Hives Verified 07/20/21 00:26 pine nut Allergy Intermediate Hives Verified 07/20/21 00:26 empagliflozin AdvReac Intermediate DIARRHEA--PER Verified 07/20/21 00:26 [From Jardiance] GMG lactose AdvReac Intermediate Gastrointestinal Verified 07/20/21 00:26 Upset semaglutide AdvReac Intermediate Diarrhea Verified 07/20/21 00:26 vaccine adjuvant system, AdvReac Intermediate LETHARGIC, Verified 07/20/21 00:26 [id number] liposomal PAIN, [From Shingrix (PF)] FATIGUE varicella-zoster virus AdvReac Intermediate LETHARGIC, Verified 07/20/21 00:26 glycoprotein E, recombinant PAIN, [From Shingrix (PF)] FATIGUE Home Medications Medication Instructions Recorded Confirmed Type atorvastatin 80 mg tablet (Lipitor) 80 mg PO HS 03/29/18 07/20/21 History famotidine 20 mg tablet (Pepcid) 20 mg PO BID 12/26/19 07/20/21 History oxybutynin chloride 5 mg tablet 5 mg PO DAILY 12/26/19 07/20/21 History nitroglycerin 0.4 mg sublingual 0.4 mg SUBLINGUAL UD PRN 02/28/20 07/20/21 History tablet (Nitrostat) sertraline 100 mg tablet (Zoloft) 100 mg PO QAM 02/28/20 07/20/21 History lisinopril 5 mg tablet (Zestril) 5 mg PO BID #60 tab 05/06/20 07/20/21 Rx aspirin 81 mg tablet,delayed 81 mg PO QAM 12/26/20 07/20/21 History release (Aspirin Low Dose) metoprolol succinate 25 mg 25 mg PO BID 12/26/20 07/20/21 History tablet,extended release 24 hr (Toprol XL) pantoprazole 20 mg tablet,delayed 20 mg PO DAILY 12/26/20 07/20/21 History release (Protonix) gabapentin 100 mg capsule 200 mg PO TID 06/15/21 07/20/21 History metformin 500 mg tablet,extended 500 mg PO BIDM 06/15/21 07/20/21 History release 24 hr torsemide 10 mg tablet 10 mg PO DAILY 06/15/21 07/20/21 History ticagrelor 90 mg tablet (Brilinta) 90 mg PO BID #60 tab 06/19/21 07/20/21 Rx ezetimibe 10 mg tablet 10 mg PO DAILY 07/20/21 07/20/21 History Patient History Medical History Anemia Arthritis CAD (coronary artery disease) 02/2020-DORIAN x2 to mid LAD 04/2020 cardiac cath demonstrated patent stents and nonobstructive disease Depression Diabetic polyneuropathy DMII (diabetes mellitus, type 2) GERD (gastroesophageal reflux disease) HTN (hypertension) Ischemic cardiomyopathy DAVID (obstructive sleep apnea) STEMI (ST elevation myocardial infarction) Surgical History History of appendectomy History of carpal tunnel surgery Hx of cholecystectomy No pertinent past surgical history S/P arterial stent S/P FELA (total abdominal hysterectomy) Family History Other Deep vein thrombosis Social History Smoking Status: Former smoker Tobacco Type: Cigarettes Second Hand Exposure: No; Do You Dip or Chew Tobacco: No; Hx Alcohol Use: Yes Alcohol type: wine Hx Substance Use: No Preferred Language: Palestinian Communication Ability: Effective Visual Impairment: No Limitations Hearing Ability: Normal Gas Appliance Installer Required: No Beliefs That Will Affect Care: None marital status: Current Living Situation: Spouse Current Living Situation Comment: The patient states that she lives with her child and their fianc. current occupational status: unemployed How many Children do You have: 3 Feels Safe at Home: Yes Safety Concerns: Feels Safe At This Time Assistive Devices: Oxygen - at Night Review of Systems Review of Systems: Unobtainable due to endotracheal tube Physical Exam Physical Exam: Temp Pulse Resp BP Pulse Ox 36.6 C 68 17 137/67 99 07/20/21 03:49 07/20/21 07:10 07/20/21 07:10 07/20/21 06:00 07/20/21 07:10 Constitutional: + ill appearing Respiratory: Auscultation: + diminished lung sounds (decreased BS at the bases ) Cardiovascular: Rate/Rhythm: regular rate Heart Sounds: no murmur Extremities: + edema (1+ bilateral LE edema ) Gastrointestinal (Abdomen): normal bowel sounds, soft, nontender, no hepatosplenomegaly Neurologic: sedated, arousible Results & Data ([facility]) Laboratory Results Cardiac Enzymes 07/20/21 07/20/21 07/20/21 Range/Units 00:18 05:31 08:11 AST 15 14 (13-39) U/L Troponin I High Sens 18.1 H 112.6 H* D (0-14) pg/ml CBC 07/20/21 07/20/21 Range/Units 01:11 05:31 WBC 7.68 8.49 (4.8-10.8) K/uL RBC 3.27 L 3.16 L (4.2-5.4) M/uL Hgb 9.9 L 9.4 L (12.0-16.0) g/dL Hct 31.7 L 30.5 L (37-47) % Plt Count 298 209 (130-400) K/uL Neut # (Auto) 7.12 H (1.4-6.5) K/uL Lymph # (Auto) 0.97 L (1.2-3.4) K/uL Dickey # (Auto) 0.35 (0.11-0.59) K/uL Eos # (Auto) 0.01 (0-0.5) K/uL Baso # (Auto) 0.01 (0-0.2) K/uL Comprehensive Metabolic Panel 07/20/21 07/20/21 Range/Units 00:18 05:31 Sodium 138 140 (136-145) mmol/L Potassium 3.9 4.2 (3.5-5.1) mmol/L Chloride 107 107 (98-107) mmol/L Carbon Dioxide 22 26 (21-32) mmol/L BUN 26 H 25 H (6-23) mg/dl Creatinine 1.09 0.77 D (0.6-1.2) mg/dl Glucose 310 H* 300 H (70-99(Fasting)) mg/dl Calcium 8.5 8.5 (8.5-10.1) mg/dl Direct Bilirubin 0.0 (0-0.2) mg/dl AST 15 14 (13-39) U/L ALT 5 L 4 L (7-52) U/L Alkaline Phosphatase 76 63 (34-104) U/L Total Protein 7.3 6.5 (6.0-8.3) gm/dl Albumin 4.0 3.5 (3.4-5.0) gm/dl Intake and Output 07/19/21 07/20/21 07/20/21 22:59 06:59 14:59 Intake Total 118.588 / 118.588 52.857 / 52.857 Output Total 1850 / 1850 425 / 425 Balance -1731.412 / -1731.412 -372.143 / -372.143 Intake: IV 118.588 / 118.588 52.857 / 52.857 propofoL 1,000 mg In 100 ml @ 118.588 / 118.588 52.857 / 52.857 40 MCG/KG/MIN 20.16 mls/hr IV . Q4H58M [facility] Rx#:[id number] Oral 0 / 0 Output: Urine Amount (Catheter) 1849 425 / 425 Lerner/Indwelling 1849 425 / 425 # Bowel Movements 0 / 0 Other: Weight 78 kg Weight Measurement Method Built in [facility] Diagnostic Findings EKG 07/19/21: sinus tachycardia at 113 with RBBB, LAFB (bifascicular block pattern), no significant ST segment elevation or depression.
[2021-07-20] MEDS: MAGNESIUM SULFATE / D5W 1 GM/100 ML BAG IV SCH ×4 (11:34→18:05)
[2021-07-20] MEDS: LANSOPRAZOLE 30 MG SOLTAB NG SCH (12:13)
--- NOTE | 2021-07-20 12:19 | Pharmacy Report ---
Pharmacy Glycemic Short Note 2 - Date of Service July 20, 2021 - Glycemic Short BSG Results (Last 24 hours): 07/20/21 07/20/21 07/20/21 00:18 03:41 03:42 Glucose 310 H* POC Glucose 324 H* 300 H 07/20/21 07/20/21 07/20/21 04:39 05:31 07:46 Glucose 300 H POC Glucose 306 H* 238 H 07/20/21 11:44 Glucose POC Glucose 161 H OUTPATIENT ANTIDIABETIC REGIMEN: * Metformin 500 mg BID * A1c Pending ASSESSMENT: * Patient 65 yo type II diabetic admitted with significant heart history, intubated for flash pulmonary edema with decrease ejection fraction. Intubated, sedated with propofol. * BSGs elevated this morning, likely d/t stress, have improved with subq novolog, will continue for now * Plan for patient to intubated for 24 hours, will continue with novolog scale and monitor for additional insulin need PLAN FOR INPATIENT GLYCEMIC CONTROL: * Hold outpatient oral diabetes medications * Basal insulin * hold for now * Bolus insulin * NovoLog per scale ACHS or Q6hrs while NPO * Goal Range: Low 140 mg/dL - High 180 mg/dL * Correction Factor: 25 mg/dL/unit * Nutritional / Prandial insulin per carb ratio of 1 unit per - grams CHO consumed
[2021-07-20] MEDS: METOPROLOL TARTRATE 25 MG TAB PO SCH ×2 (13:21→18:31)
--- NOTE | 2021-07-20 13:32 | Electrocardiogram Report ---
Test Reason : Blood Pressure : / mmHG Vent. Rate : 113 BPM Atrial Rate : 113 BPM P-R Int : 132 ms QRS Dur : 140 ms QT Int : 370 ms P-R-T Axes : 047 -73 066 degrees QTc Int : 507 ms Poor data quality, interpretation may be adversely affected Sinus tachycardia Right bundle branch block Left anterior fascicular block Bifascicular block Abnormal ECG When compared with ECG of 19-JUL-2021 23:49, (unconfirmed) Premature ventricular complexes are no longer Present Confirmed by Eze Marcus ([id number]) on 07/20/2021 1:32:28 PM Referred By: REFERRED SELF Confirmed By:Eze Marcus
--- NOTE | 2021-07-20 13:53 | Electrocardiogram Report ---
Test Reason : Blood Pressure : / mmHG Vent. Rate : 072 BPM Atrial Rate : 072 BPM P-R Int : 112 ms QRS Dur : 130 ms QT Int : 422 ms P-R-T Axes : 020 -68 -50 degrees QTc Int : 462 ms Normal sinus rhythm Right bundle branch block Left anterior fascicular block Bifascicular block Septal infarct (cited on or before 16-JUN-2021) T wave abnormality, consider lateral ischemia Abnormal ECG When compared with ECG of 19-JUL-2021 23:50, (unconfirmed) Vent. rate has decreased BY 41 BPM Questionable change in initial forces of Septal leads T wave inversion now evident in Inferior leads T wave inversion now evident in Anterolateral leads Confirmed by Eze Marcus ([id number]) on 07/20/2021 1:52:31 PM Referred By: REFERRED SELF Confirmed By:Eze Marcus
[2021-07-20 15:01] LABS: Estimated Average Glucose 200 mg/dl; Hemoglobin A1C 8.6 % (4.5-5.6)
[2021-07-20] MEDS: ICU ELECTROLYTE REPLACEMENT PROTOCOL SCH (18:30)
[2021-07-20] MEDS: lisinopril 10 MG TAB PO SCH (20:08)
[2021-07-20] MEDS: ATORVASTATIN 40 MG TAB PO SCH (20:09)
[2021-07-21] MEDS: INSULIN ASPART PER UNIT SC SCH ×7 (00:48→23:53)
[2021-07-21] MEDS: METOPROLOL TARTRATE 25 MG TAB PO SCH ×3 (00:51→09:00)
[2021-07-21] MEDS: propofoL 1,000 MG/100 ML VIAL IV SCH (03:59)
[2021-07-21 05:14] LABS: iSTAT Allen Test Pass; iSTAT Art Bld Gas pCO2 Correct 37 mmHg (35-46); iSTAT Art Bld Gas pH Corrected 7.454 (7.35-7.45); iSTAT Arterial Blood Gas HCO3 26 meg/L (19-24); iSTAT Arterial Blood Gas pCO2 37 mmHg (35-46); iSTAT Arterial Blood Gas pH 7.46 (7.35-7.45); iSTAT Arterial Blood Gas pO2 69 mmHg (80-95); iSTAT Arterial Blood Gas pO2 C 70; iSTAT Carbon Dioxide 27 mmol/L (24-31); iSTAT FiO2 28 %; iSTAT Hematocrit 23 % (37-47); iSTAT Hemoglobin 7.8 g/dl (12.0-16.0); iSTAT Potassium 3.3 mmol/L (3.3-5.0); iSTAT Site R Radial; iSTAT Sodium 139 mmol/L (135-144)
[2021-07-21 05:25] LABS: Basophils # (auto) 0.01 K/uL (0-0.2); Basophils % (auto) 0.2 %; Eosinophils # (auto) 0.08 K/uL (0-0.5); Eosinophils % (auto) 1.2 %; Hematocrit (blood only) 27.2 % (37-47); Hemoglobin 8.9 g/dL (12.0-16.0); Immature Granulocytes # (auto) 0.01 K/uL (0.00-0.02); Immature Granulocytes % (auto) 0.2 %; Lymphocytes # (auto) 1.36 K/uL (1.2-3.4); Lymphocytes % (auto) 20.8 %; Mean Corpuscular Hemoglobin 30.1 pg (25-34); Mean Corpuscular Hgb Conc 32.7 g/dL (32-36); Mean Corpuscular Volume 91.9 fL (80-100); Mean Platelet Volume 10.5 fL (7.4-10.4); Monocytes # (auto) 0.47 K/uL (0.11-0.59); Monocytes % (auto) 7.2 %; Neutrophils # (auto) 4.62 K/uL (1.4-6.5); Neutrophils % (auto) 70.4 %; Platelet Count 226 K/uL (130-400); RDW Coefficient of Variation 14.7 % (11.5-14.5); RDW Standard Deviation 49.6 fL (36.4-46.3); Red Blood Count 2.96 M/uL (4.2-5.4); White Blood Count 6.55 K/uL (4.8-10.8)
[2021-07-21 06:02] LABS: BUN Creatinine Ratio 20.1 (10-20); Calcium 8.4 mg/dl (8.5-10.1); Creatinine Clr Calc Pharmacy 42.8 ml/min; Est GFR (African American) 46.6 ml/min; Est GFR (Non-African American) 40.2 ml/min; Magnesium 2.3 mg/dl (1.7-2.4); Phosphorus 3.7 mg/dl (2.5-4.9); Potassium 3.5 mmol/L (3.5-5.1); Troponin I High Sensitivity 62.7 pg/ml (0-14)
[2021-07-21] MEDS: ICU ELECTROLYTE REPLACEMENT PROTOCOL SCH ×2 (06:08→17:30)
[2021-07-21] MEDS: POTASSIUM CHLORIDE / WTR 10 MEQ/100 ML PLCT IV SCH ×4 (06:26→09:42)
[2021-07-21] MEDS: OXYBUTYNIN CHLORIDE 5 MG TAB PO SCH (07:30)
[2021-07-21] MEDS: TICAGRELOR 90 MG TAB PO SCH ×2 (07:30→20:00)
[2021-07-21] MEDS: SERTRALINE HCL 100 MG TABLET PO SCH (07:30)
[2021-07-21] MEDS: FAMOTIDINE 20 MG TAB PO SCH ×2 (07:30→20:00)
[2021-07-21] MEDS: lisinopril 10 MG TAB PO SCH ×2 (07:30→08:35)
[2021-07-21] MEDS: GABAPENTIN 250 MG/5 ML 470 ML BTL PO SCH ×2 (07:30→14:39)
[2021-07-21] MEDS: LANSOPRAZOLE 30 MG SOLTAB NG SCH (07:30)
[2021-07-21] MEDS: EZETIMIBE 10 MG TABLET PO SCH (07:31)
[2021-07-21] MEDS: ENOXAPARIN INJ 40 MG/0.4 ML SYR SQ SCH (07:31)
[2021-07-21] MEDS: ASPIRIN 81 MG CHEW PO SCH (07:33)
[2021-07-21] MEDS: FUROSEMIDE 40 MG/4 ML VIAL IV SCH (07:34)
--- NOTE | 2021-07-21 07:36 | Hospitalist Progress Note ---
Date of Service July 21, 2021 Assessment & Plan (1) Flash pulmonary edema: (2) Acute respiratory failure with hypoxia: (3) Acute on chronic systolic HF (heart failure): Plan: This is a 65-year-old female who presents with acute congestive heart failure, flash pulm. edema, elev. troponin. 1. Acute respiratory failure mostly secondary to acute systolic and diastolic congestive heart failure, ejection fraction was 25% to 30%, last echo in May of 2021. Received IV Lasix in the ER with about a liter of urine out as per ER. Continued w/ IV Lasix 40 b.i.d. The patient was intubated in the ER. Now extubated (07/21) in ICU care. Critical care consulted. Echocardiogram -LV is normal in size. There is a diffuse hypokinesis to akinesis with focal akinesis of the anterior septum and apex. There is mild concentric LVH. LV systolic function is severely reduced. LVEF 20 to 25%. LA is mildly dilated. Grade 1 diastolic dysfunction. There is a moderate sized left pleural effusion. There is a small right pleural effusion. Compared to the previous study performed in May 2021 there has been further decline in the LVEF and new pleural effusions are present. Dilated inferior vena cava with reduced collapsibility with sniff indicates an elevated right atrial pressure of 15 mmHg. Doppler findings do not suggest pulmonary hypertension. There is no significant valvular pathology. Cardiology consulted for further recommendations. 2. Possible non-ST elevation myocardial infarction, possibly secondary to demand ischemia as high sensitivity troponin is elevated.Patient did present with BP of 204/120 and therefore hypertension related event is a consideration or progression of her CAD. Cardiology following. 3. History of coronary artery disease, status post stent to LAD in February 2020, in last May of 2021 again had a LAD drug-eluting stent. On aspirin, Brilinta, beta erickson, statin, and ezetimibe, which are continued. Cardiology following 4. Diabetes: Hold metformin. Placed on insulin sliding scale and Lantus and monitor the blood sugar and follow the HbA1c levels. 5. History of hypertension: Continue metoprolol, lisinopril. Will monitor the blood pressure. 6. History of obstructive sleep apnea. Needs followup with sleep study. Will do nocturnal pulse ox when the patient is stable in the hospital. 7. Female stress incontinence: Continue oxybutynin. 8. Hyperlipidemia: On statin. 9. Depression: On Zoloft. 10. Gastroesophageal reflux disease: On Pepcid. DVT prophylaxis: Placed on Lovenox. DISPOSITION: Closely monitor in the ICU. CODE: full code. Admission and Anticipated Discharge Date Admission Date: July 20, 2021 Subjective Patient seen in follow-up of flash pulmonary edema, acute systolic CHF, elevated troponin Patient was extubated today, currently feeling much better She is alert oriented, answering questions appropriately, currently on oxygen via nasal cannula She is speaking in full sentences, tolerating diet Denies any chest pain, palpitations, increased shortness of breath, abdominal pain, nausea vomiting Review of Systems Review of Systems: All systems reviewed & are unremarkable except as noted in Subjective Physical Exam Physical Exam: GENERAL: WD/WN F , now extubated, and on suppl. O2 via NC, in NAD HEENT: NC/AT. EOMI. Pupils equal, round and reactive to light. NECK: No JVD. No neck masses. CARDIOVASCULAR: S1 and S2 heard. Regular rate and rhythm. No murmur, no gallop. RESPIRATORY SYSTEM: Normal AP diameter. No accessory muscle use. + mild bilateral crackles . No wheezing. ABDOMEN: Soft, bowel sounds present, nontender, no distention. NEURO:Alert oriented, answering questions appropriately, no facial asymmetry, speech fluent, moves extremities EXTREMITIES: Mild pedal edema present, no erythema seen. Results & Data Results & Data ([facility]) Vital Signs (Past 12 Hours) Vital Signs Temp Pulse Resp BP Pulse Ox Pulse Ox 07/21/21 06:00 37.3 C 61 14 106/59 L 96 07/21/21 05:30 61 14 101/53 L 96 07/21/21 05:00 61 14 105/55 L 96 07/21/21 04:30 61 14 107/62 96 07/21/21 04:00 69 14 105/61 95 07/21/21 03:51 96 07/21/21 03:30 60 16 87/49 L 95 07/21/21 03:00 37.3 C 62 16 90/55 L 95 07/21/21 02:00 63 16 95/54 L 94 07/21/21 01:00 66 16 87/57 L 94 07/21/21 00:00 86 16 102/54 L 94 07/20/21 23:00 80 16 109/62 95 07/20/21 22:40 71 16 96 07/20/21 22:15 38.0 C H 07/20/21 22:00 69 16 115/58 L 96 07/20/21 21:00 72 16 130/60 96 07/20/21 20:00 86 16 132/65 96 07/20/21 19:59 85 16 96 Laboratory Results 07/21/21 07/21/21 07/21/21 Range/Units 04:51 04:03 03:59 WBC (4.8-10.8) K/uL RBC (4.2-5.4) M/uL Hgb (12.0-16.0) g/dL POC Hgb 7.8 L (12.0-16.0) g/dl Hct (37-47) % POC Hct 23 L (37-47) % MCV (80-100) fL MCH (25-34) pg MCHC (32-36) g/dL RDW Std Deviation (36.4-46.3) fL RDW Coeff of Ronaldo (11.5-14.5) % Plt Count (130-400) K/uL MPV (7.4-10.4) fL Immature Gran % (Auto) % Neut % (Auto) % Lymph % (Auto) % [place] % (Auto) % Eos % (Auto) % Baso % (Auto) % Neut # (Auto) (1.4-6.5) K/uL Lymph # (Auto) (1.2-3.4) K/uL [place] # (Auto) (0.11-0.59) K/uL Eos # (Auto) (0-0.5) K/uL Baso # (Auto) (0-0.2) K/uL Immature Gran # (Auto) (0.00-0.02) K/uL Sample Site R Radial POC pH 7.46 H (7.35-7.45) POC pCO2 37 (35-46) mmHg POC pO2 69 L (80-95) mmHg POC HCO3 26 H (19-24) sherrie/L POC Total CO2 27 (24-31) mmol/L POC Base Excess 2.0 H (-9-1.8) sherrie/L ABG pH (Temp Correct) 7.454 H (7.35-7.45) ABG pCO2 (Temp Corrct 37 (35-46) mmHg POC ABG pO2 at Pt Temp 70 POC ABG O2 Sat 95.0 (90-95) % Jesu Test Pass O2 Delivery Device Ventilator POC O2 Rate 16 Minute Ventilation 6.4 POC FiO2 28 % Tidal Volume 400 PEEP 5 POC Sodium 139 (135-144) mmol/L Sodium 137 (136-145) mmol/L POC Potassium 3.3 (3.3-5.0) mmol/L Potassium 3.5 (3.5-5.1) mmol/L Chloride 103 (98-107) mmol/L Carbon Dioxide 26 (21-32) mmol/L Anion Gap 8 (3-11) BUN 28 H (6-23) mg/dl Creatinine 1.39 H D (0.6-1.2) mg/dl Est Cr Clr Drug Dosing 42.8 ml/min Est GFR ( Amer) 46.6 ml/min Est GFR (Non-Af Amer) 40.2 ml/min BUN/Creatinine Ratio 20.1 H (10-20) Glucose 162 H (70-99(Fasting)) mg/dl POC Glucose 188 H (70-99) mg/dl Estimat Average Glucose mg/dl Hemoglobin A1c (4.5-5.6) % Calcium 8.4 L (8.5-10.1) mg/dl Phosphorus 3.7 (2.5-4.9) mg/dl Magnesium 2.3 (1.7-2.4) mg/dl Troponin I High Sens 62.7 H* D (0-14) pg/ml 07/21/21 07/21/21 07/20/21 Range/Units 03:59 00:46 22:51 WBC 6.55 (4.8-10.8) K/uL RBC 2.96 L (4.2-5.4) M/uL Hgb 8.9 L (12.0-16.0) g/dL POC Hgb (12.0-16.0) g/dl Hct 27.2 L (37-47) % POC Hct (37-47) % MCV 91.9 (80-100) fL MCH 30.1 (25-34) pg MCHC 32.7 (32-36) g/dL RDW Std Deviation 49.6 H (36.4-46.3) fL RDW Coeff of Ronaldo 14.7 H (11.5-14.5) % Plt Count 226 (130-400) K/uL MPV 10.5 H (7.4-10.4) fL Immature Gran % (Auto) 0.2 % Neut % (Auto) 70.4 % Lymph % (Auto) 20.8 % [place] % (Auto) 7.2 % Eos % (Auto) 1.2 % Baso % (Auto) 0.2 % Neut # (Auto) 4.62 (1.4-6.5) K/uL Lymph # (Auto) 1.36 (1.2-3.4) K/uL [place] # (Auto) 0.47 (0.11-0.59) K/uL Eos # (Auto) 0.08 (0-0.5) K/uL Baso # (Auto) 0.01 (0-0.2) K/uL Immature Gran # (Auto) 0.01 (0.00-0.02) K/uL Sample Site POC pH (7.35-7.45) POC pCO2 (35-46) mmHg POC pO2 (80-95) mmHg POC HCO3 (19-24) sherrie/L POC Total CO2 (24-31) mmol/L POC Base Excess (-9-1.8) sherrie/L ABG pH (Temp Correct) (7.35-7.45) ABG pCO2 (Temp Corrct (35-46) mmHg POC ABG pO2 at Pt Temp POC ABG O2 Sat (90-95) % Jesu Test O2 Delivery Device POC O2 Rate Minute Ventilation POC FiO2 % Tidal Volume PEEP POC Sodium (135-144) mmol/L Sodium (136-145) mmol/L POC Potassium (3.3-5.0) mmol/L Potassium (3.5-5.1) mmol/L Chloride (98-107) mmol/L Carbon Dioxide (21-32) mmol/L Anion Gap (3-11) BUN (6-23) mg/dl Creatinine (0.6-1.2) mg/dl Est Cr Clr Drug Dosing ml/min Est GFR ( Amer) ml/min Est GFR (Non-Af Amer) ml/min BUN/Creatinine Ratio (10-20) Glucose (70-99(Fasting)) mg/dl POC Glucose 196 H (70-99) mg/dl Estimat Average Glucose mg/dl Hemoglobin A1c (4.5-5.6) % Calcium (8.5-10.1) mg/dl Phosphorus (2.5-4.9) mg/dl Magnesium (1.7-2.4) mg/dl Troponin I High Sens 81.6 H* D (0-14) pg/ml 07/20/21 07/20/21 07/20/21 Range/Units 20:23 16:45 15:09 WBC (4.8-10.8) K/uL RBC (4.2-5.4) M/uL Hgb (12.0-16.0) g/dL POC Hgb (12.0-16.0) g/dl Hct (37-47) % POC Hct (37-47) % MCV (80-100) fL MCH (25-34) pg MCHC (32-36) g/dL RDW Std Deviation (36.4-46.3) fL RDW Coeff of Ronaldo (11.5-14.5) % Plt Count (130-400) K/uL MPV (7.4-10.4) fL Immature Gran % (Auto) % Neut % (Auto) % Lymph % (Auto) % [place] % (Auto) % Eos % (Auto) % Baso % (Auto) % Neut # (Auto) (1.4-6.5) K/uL Lymph # (Auto) (1.2-3.4) K/uL [place] # (Auto) (0.11-0.59) K/uL Eos # (Auto) (0-0.5) K/uL Baso # (Auto) (0-0.2) K/uL Immature Gran # (Auto) (0.00-0.02) K/uL Sample Site POC pH (7.35-7.45) POC pCO2 (35-46) mmHg POC pO2 (80-95) mmHg POC HCO3 (19-24) sherrie/L POC Total CO2 (24-31) mmol/L POC Base Excess (-9-1.8) sherrie/L ABG pH (Temp Correct) (7.35-7.45) ABG pCO2 (Temp Corrct (35-46) mmHg POC ABG pO2 at Pt Temp POC ABG O2 Sat (90-95) % Jesu Test O2 Delivery Device POC O2 Rate Minute Ventilation POC FiO2 % Tidal Volume PEEP POC Sodium (135-144) mmol/L Sodium (136-145) mmol/L POC Potassium (3.3-5.0) mmol/L Potassium (3.5-5.1) mmol/L Chloride (98-107) mmol/L Carbon Dioxide (21-32) mmol/L Anion Gap (3-11) BUN (6-23) mg/dl Creatinine (0.6-1.2) mg/dl Est Cr Clr Drug Dosing ml/min Est GFR ( Amer) ml/min Est GFR (Non-Af Amer) ml/min BUN/Creatinine Ratio (10-20) Glucose (70-99(Fasting)) mg/dl POC Glucose 161 H 130 H (70-99) mg/dl Estimat Average Glucose mg/dl Hemoglobin A1c (4.5-5.6) % Calcium (8.5-10.1) mg/dl Phosphorus (2.5-4.9) mg/dl Magnesium (1.7-2.4) mg/dl Troponin I High Sens 110.9 H* (0-14) pg/ml 07/20/21 07/20/21 07/20/21 Range/Units 11:44 10:47 08:11 WBC (4.8-10.8) K/uL RBC (4.2-5.4) M/uL Hgb (12.0-16.0) g/dL POC Hgb (12.0-16.0) g/dl Hct (37-47) % POC Hct (37-47) % MCV (80-100) fL MCH (25-34) pg MCHC (32-36) g/dL RDW Std Deviation (36.4-46.3) fL RDW Coeff of Ronaldo (11.5-14.5) % Plt Count (130-400) K/uL MPV (7.4-10.4) fL Immature Gran % (Auto) % Neut % (Auto) % Lymph % (Auto) % [place] % (Auto) % Eos % (Auto) % Baso % (Auto) % Neut # (Auto) (1.4-6.5) K/uL Lymph # (Auto) (1.2-3.4) K/uL [place] # (Auto) (0.11-0.59) K/uL Eos # (Auto) (0-0.5) K/uL Baso # (Auto) (0-0.2) K/uL Immature Gran # (Auto) (0.00-0.02) K/uL Sample Site POC pH (7.35-7.45) POC pCO2 (35-46) mmHg POC pO2 (80-95) mmHg POC HCO3 (19-24) sherrie/L POC Total CO2 (24-31) mmol/L POC Base Excess (-9-1.8) sherrie/L ABG pH (Temp Correct) (7.35-7.45) ABG pCO2 (Temp Corrct (35-46) mmHg POC ABG pO2 at Pt Temp POC ABG O2 Sat (90-95) % Jesu Test O2 Delivery Device POC O2 Rate Minute Ventilation POC FiO2 % Tidal Volume PEEP POC Sodium (135-144) mmol/L Sodium (136-145) mmol/L POC Potassium (3.3-5.0) mmol/L Potassium (3.5-5.1) mmol/L Chloride (98-107) mmol/L Carbon Dioxide (21-32) mmol/L Anion Gap (3-11) BUN (6-23) mg/dl Creatinine (0.6-1.2) mg/dl Est Cr Clr Drug Dosing ml/min Est GFR ( Amer) ml/min Est GFR (Non-Af Amer) ml/min BUN/Creatinine Ratio (10-20) Glucose (70-99(Fasting)) mg/dl POC Glucose 161 H (70-99) mg/dl Estimat Average Glucose mg/dl Hemoglobin A1c (4.5-5.6) % Calcium (8.5-10.1) mg/dl Phosphorus (2.5-4.9) mg/dl Magnesium (1.7-2.4) mg/dl Troponin I High Sens 126.5 H* 112.6 H* D (0-14) pg/ml 07/20/21 07/20/21 Range/Units 07:46 05:31 WBC (4.8-10.8) K/uL RBC (4.2-5.4) M/uL Hgb (12.0-16.0) g/dL POC Hgb (12.0-16.0) g/dl Hct (37-47) % POC Hct (37-47) % MCV (80-100) fL MCH (25-34) pg MCHC (32-36) g/dL RDW Std Deviation (36.4-46.3) fL RDW Coeff of Ronaldo (11.5-14.5) % Plt Count (130-400) K/uL MPV (7.4-10.4) fL Immature Gran % (Auto) % Neut % (Auto) % Lymph % (Auto) % [place] % (Auto) % Eos % (Auto) % Baso % (Auto) % Neut # (Auto) (1.4-6.5) K/uL Lymph # (Auto) (1.2-3.4) K/uL [place] # (Auto) (0.11-0.59) K/uL Eos # (Auto) (0-0.5) K/uL Baso # (Auto) (0-0.2) K/uL Immature Gran # (Auto) (0.00-0.02) K/uL Sample Site POC pH (7.35-7.45) POC pCO2 (35-46) mmHg POC pO2 (80-95) mmHg POC HCO3 (19-24) sherrie/L POC Total CO2 (24-31) mmol/L POC Base Excess (-9-1.8) sherrie/L ABG pH (Temp Correct) (7.35-7.45) ABG pCO2 (Temp Corrct (35-46) mmHg POC ABG pO2 at Pt Temp POC ABG O2 Sat (90-95) % Jesu Test O2 Delivery Device POC O2 Rate Minute Ventilation POC FiO2 % Tidal Volume PEEP POC Sodium (135-144) mmol/L Sodium (136-145) mmol/L POC Potassium (3.3-5.0) mmol/L Potassium (3.5-5.1) mmol/L Chloride (98-107) mmol/L Carbon Dioxide (21-32) mmol/L Anion Gap (3-11) BUN (6-23) mg/dl Creatinine (0.6-1.2) mg/dl Est Cr Clr Drug Dosing ml/min Est GFR ( Amer) ml/min Est GFR (Non-Af Amer) ml/min BUN/Creatinine Ratio (10-20) Glucose (70-99(Fasting)) mg/dl POC Glucose 238 H (70-99) mg/dl Estimat Average Glucose 200 mg/dl Hemoglobin A1c 8.6 H (4.5-5.6) % Calcium (8.5-10.1) mg/dl Phosphorus (2.5-4.9) mg/dl Magnesium (1.7-2.4) mg/dl Troponin I High Sens (0-14) pg/ml Medications Administered Current Inpatient Medications Aspirin (Aspirin 81 Mg Chew) 81 mg PO QAM GLYNN Stop: 08/19/21 08:59 Last Admin: 07/21/21 07:33 Dose: 81 mg Documented by: Atorvastatin Calcium (Atorvastatin 40 Mg Tab) 80 mg PO HS GLYNN Stop: 08/19/21 20:59 Last Admin: 07/20/21 20:09 Dose: 80 mg Documented by: Dextrose (Dextrose 50% 50 Ml Syringe) 25 - 50 ml IV UD PRN; Protocol PRN Reason: Hypoglycemia Protocol Stop: 08/19/21 03:57 Ezetimibe (Ezetimibe 10 Mg Tablet) 10 mg PO DAILY GLYNN Stop: 08/19/21 08:59 Last Admin: 07/21/21 07:31 Dose: 10 mg Documented by: Enoxaparin Sodium (Enoxaparin Inj 40 Mg/0.4 Ml Syr) 40 mg SQ Q24H GLYNN Stop: 08/19/21 08:59 Last Admin: 07/21/21 07:31 Dose: 40 mg Documented by: Famotidine (Famotidine 20 Mg Tab) 20 mg PO BID GLYNN Stop: 08/19/21 08:59 Last Admin: 07/21/21 07:30 Dose: 20 mg Documented by: Fentanyl Citrate (Fentanyl Citrate 100 Mcg/2 Ml Vial) 50 mcg IV Q2H PRN PRN Reason: Moderate Pain (4,5,6) on NRS Stop: 08/03/21 03:53 Furosemide (Furosemide 40 Mg/4 Ml Vial) 40 mg IV BID GLYNN Stop: 08/19/21 08:59 Last Admin: 07/21/21 07:34 Dose: 40 mg Documented by: Gabapentin (Gabapentin 250 Mg/5 Ml 470 Ml Btl) 200 mg PO TID GLYNN Stop: 08/19/21 08:59 Last Admin: 07/21/21 07:30 Dose: 200 mg Documented by: Glucagon (Glucagon For Inj 1 Mg Vial) 1 mg SQ UD PRN; Protocol PRN Reason: Hypoglycemia Protocol Stop: 08/19/21 03:57 Glucose (Glucose 40% Gel 15 Gm Tube) 15 - 30 gm PO UD PRN; Protocol PRN Reason: Hypoglycemia Protocol Stop: 08/19/21 03:57 Glucose (Glucose 10 Tabs/Tube) 4 - 8 tabs PO UD PRN; Protocol PRN Reason: Hypoglycemia Protocol Stop: 08/19/21 04:14 Propofol (Diprivan) 1,000 mg in 100 mls @ 20.16 mls/hr IV .Q4H58M GLYNN; Protocol Stop: 07/23/21 00:59 Last Titration: 07/21/21 07:03 Dose: 40 mcg/kg/min, 20.2 mls/hr Documented by: Acetaminophen (Ofirmev) 1,000 mg in 100 mls @ 400 mls/hr IV Q8H PRN PRN Reason: Fever/Mild Pain (Pain 1,2,3) Stop: 07/23/21 03:53 Last Infusion: 07/20/21 22:32 Dose: Infused Documented by: Potassium Chloride (K Jesus / Wtr) 10 meq in 100 mls @ 100 mls/hr IV Q1H GLYNN Stop: 07/21/21 10:14 Last Admin: 07/21/21 07:33 Dose: 100 mls/hr Documented by: Insulin Aspart (Insulin Aspart Per Unit) 0 units SC Q4 GLYNN Stop: 08/19/21 07:59 Last Admin: 07/21/21 04:04 Dose: 1 units Documented by: Lansoprazole (Lansoprazole 30 Mg Soltab) 30 mg NG DAILY [facility] Stop: 08/19/21 10:14 Last Admin: 07/21/21 07:30 Dose: 30 mg Documented by: Lisinopril (Lisinopril 10 Mg Tab) 10 mg PO BID [facility] Stop: 08/19/21 20:59 Last Admin: 07/21/21 07:30 Dose: 10 mg Documented by: Metoprolol Tartrate (Metoprolol Tartrate 25 Mg Tab) 12.5 mg PO Q6 GLYNN Stop: 08/19/21 11:59 Last Admin: 07/21/21 06:10 Dose: Not Given Documented by: Miscellaneous (Carbohydrates For Hypoglycemia ) 15 - 30 gm PO UD PRN PRN Reason: Hypoglycemia Protocol Stop: 08/19/21 03:57 Miscellaneous (Icu Electrolyte Replacement Protocol) 1 ea N/A BID@06,18 GLYNN; Protocol Stop: 07/27/21 17:59 Last Admin: 07/21/21 06:08 Dose: 1 ea Documented by: Miscellaneous Information (Pharmacy Glycemic Mgmt Consult) 1 ea N/A UD PRN; Protocol PRN Reason: Consult Stop: 08/19/21 03:57 Nitroglycerin (Nitroglycerin Sl 0.4 Mg/Tab Tab) 0.4 mg SL UD PRN PRN Reason: Chest Pain Stop: 08/19/21 03:50 Oxybutynin Chloride (Oxybutynin Chloride 5 Mg Tab) 5 mg PO DAILY [facility] Stop: 08/19/21 08:59 Last Admin: 07/21/21 07:30 Dose: 5 mg Documented by: Propofol (Propofol Bolus From Bag) 20 mg IV Q5M PRN PRN Reason: Sedation Stop: 07/23/21 00:56 Last Admin: 07/20/21 02:48 Dose: 20 mg Documented by: Sertraline HCl (Sertraline Hcl 100 Mg Tablet) 100 mg PO QAM [facility] Stop: 08/19/21 08:59 Last Admin: 07/21/21 07:30 Dose: 100 mg Documented by: Ticagrelor (Ticagrelor 90 Mg Tab) 90 mg PO BID [facility] Stop: 08/19/21 08:59 Last Admin: 07/21/21 07:30 Dose: 90 mg Documented by:
--- NOTE | 2021-07-21 07:42 | XRay Report ---
XR chest 1V portable HISTORY: 65 years-old Female f/u up acute respiratory failure COMPARISON: Chest radiograph 07/20/2021 TECHNIQUE: Portable AP view of the chest FINDINGS: Cardiac silhouette is enlarged. Coronary arterial stent. Endotracheal tube overlies the midline termi nating 2.1 cm superior to the rona. An enteric tube is present which courses into the stomach with distal tip outside the [id number]. No pneumothorax. Pulmonary vascular congestion with interstitia l coarsening. There is improved aeration of the mid to upper lung zones. Increased size of the layeri ng pleural effusions with bibasilar consolidation. Degenerative changes of the shoulders and spine. IMPRESSION: 1. Lines and tubes as above. 2. Improved aeration of the mid to upper lung zones. 3. Layering pleural effusions with persistent bibasilar consolidation. ACT 112: Negative or not required by law. The above report was generated using voice recognition software. It may contain grammatical, syntax o r spelling errors. Electronically signed by: Asher Liu M.D. 07/21/2021 7:40 AM
[2021-07-21] MEDS ORDERED: hydrALAZINE HCL 20 MG/ML VIAL IV PRN (08:18)
--- NOTE | 2021-07-21 08:21 | Critical Care Progress Note ---
Date of Service July 21, 2021 Assessment & Plan (1) Admitted to intensive care unit: Plan: Reason Critically Ill: 65-year-old female with acute on chronic CHF exacerbation with respiratory failure and hypoxia due to pulmonary edema requiring emergent endotracheal intubation. 24-hour events: Patient was seen by cardiology. Her troponin continued to increase and peaked. She did not have any dynamic EKG changes. She diuresed well with Lasix. Her vent settings decreased significantly. She is on SBT this morning being evaluated for ventilator liberation. NEURO -discontinue propofol for sedation break and possible vent liberation today CARDIAC/VASCULAR -cardiology consultation reviewed. Medical management in place. Continue antiplatelet agents. Try and keep heart rate and blood pressure under control. Hold additional diuretics given increasing kidney function. Continue metoprolol, decrease lisinopril to 10 mg daily in light of her worsening kidney function this morning. Troponin has peaked and is now downtrending. Echo reviewed. RESPIRATORY -minimal vent settings this morning. Chest x-ray appears significantly better with diuresis. SBT with plans to extubate. Could require noninvasive positive pressure ventilation postextubation if hypoxemia or increased work of breathing. Chest x-ray this morning demonstrates probable small bilateral effusions. Will need to follow closely with her worsening renal function. May consider thoracentesis depending on clinical response. GI/NUTRITION -we will see how she does post extubation and advance diet as tolerated. H2 erickson and PPI per home meds RENAL/LYTES -slight increase in serum creatinine this morning. We will hold additional diuresis. Electrolyte replacement protocol. -should be able to discontinue Lerner catheter once extubated ENDO -glycemic control per protocol HEME -mild anemia. No signs of active ongoing bleeding. No indication for transfusion currently. ID - * No concerns for infectious causes at this time. LINES/IV ACCESS - * PIVs x2 * ETT * OGT * Lerner DVT PROPHYLAXIS - * Lovenox * SCDs If the patient does well postextubation, will advance diet we will get her out of bed to chair. (2) Acute respiratory failure with hypoxia: (3) Flash pulmonary edema: (4) CAD (coronary artery disease): (5) Status post insertion of drug-eluting stent into left anterior descending (LAD) artery: (6) DAVID (obstructive sleep apnea): (7) Ischemic cardiomyopathy: (8) DMII (diabetes mellitus, type 2): (9) Acute on chronic systolic HF (heart failure): Admission and Anticipated Discharge Date Admission Date: July 20, 2021 Subjective Patient seen and examined. EMR reviewed. She is intubated and sedated Review of Systems Review of Systems: Unobtainable due to endotracheal tube Physical Exam Constitutional: WD/WN, vitals as above Neck: trachea midline, no thyromegaly Respiratory: normal respiratory effort, lungs clear to auscultation Cardiovascular: RRR, no murmur, no edema Gastrointestinal (Abdomen): normal bowel sounds, soft, nontender, no hepatosplenomegaly Musculoskeletal: Extremities: extremities normal to inspection Skin: no rashes, warm and dry Neurologic: Nonfocal exam Lymphatic: no cervical lymphadenopathy Results & Data Results & Data ([facility]) Vital Signs (Past 12 Hours) Vital Signs Temp Pulse Resp BP Pulse Ox Pulse Ox 07/21/21 06:00 37.3 C 61 14 106/59 L 96 07/21/21 05:30 61 14 101/53 L 96 07/21/21 05:00 61 14 105/55 L 96 07/21/21 04:30 61 14 107/62 96 07/21/21 04:00 69 14 105/61 95 07/21/21 03:51 96 07/21/21 03:30 60 16 87/49 L 95 07/21/21 03:00 37.3 C 62 16 90/55 L 95 07/21/21 02:00 63 16 95/54 L 94 07/21/21 01:00 66 16 87/57 L 94 07/21/21 00:00 86 16 102/54 L 94 07/20/21 23:00 80 16 109/62 95 07/20/21 22:40 71 16 96 07/20/21 22:15 38.0 C H 07/20/21 22:00 69 16 115/58 L 96 07/20/21 21:00 72 16 130/60 96 Critical Care Results & Data Vital Signs (Past 12 Hours) Vital Signs Temp Pulse Resp BP Pulse Ox Pulse Ox 07/21/21 06:00 37.3 C 61 14 106/59 L 96 07/21/21 05:30 61 14 101/53 L 96 07/21/21 05:00 61 14 105/55 L 96 07/21/21 04:30 61 14 107/62 96 07/21/21 04:00 69 14 105/61 95 07/21/21 03:51 96 07/21/21 03:30 60 16 87/49 L 95 07/21/21 03:00 37.3 C 62 16 90/55 L 95 07/21/21 02:00 63 16 95/54 L 94 07/21/21 01:00 66 16 87/57 L 94 07/21/21 00:00 86 16 102/54 L 94 07/20/21 23:00 80 16 109/62 95 07/20/21 22:40 71 16 96 07/20/21 22:15 38.0 C H 07/20/21 22:00 69 16 115/58 L 96 07/20/21 21:00 72 16 130/60 96 Lab & Micro Results (Past 24 Hours) RBC 2.96 M/uL (4.2-5.4) L 07/21/21 WBC 6.55 K/uL (4.8-10.8) 07/21/21 Hgb 8.9 g/dL (12.0-16.0) L 07/21/21 Hct 27.2 % (37-47) L 07/21/21 MCV 91.9 fL (80-100) 07/21/21 MCH 30.1 pg (25-34) 07/21/21 MCHC 32.7 g/dL (32-36) 07/21/21 RDW Standard Deviation 49.6 fL (36.4-46.3) H 07/21/21 RDW Coefficient of Variation 14.7 % (11.5-14.5) H 07/21/21 Plt Count 226 K/uL (130-400) 07/21/21 MPV 10.5 fL (7.4-10.4) H 07/21/21 Neutrophils (%) (Auto) 70.4 % 07/21/21 Lymphocytes (%) (Auto) 20.8 % 07/21/21 Monocytes # (Auto) 0.47 K/uL (0.11-0.59) 07/21/21 Eosinophils # (Auto) 0.08 K/uL (0-0.5) 07/21/21 Immature Granulocyte % (Auto) 0.2 % 07/21/21 Neutrophils # (Auto) 4.62 K/uL (1.4-6.5) 07/21/21 Lymphocytes # (Auto) 1.36 K/uL (1.2-3.4) 07/21/21 Monocytes # (Auto) 0.47 K/uL (0.11-0.59) 07/21/21 Eosinophils # (Auto) 0.08 K/uL (0-0.5) 07/21/21 Basophils # (Auto) 0.01 K/uL (0-0.2) 07/21/21 Immature Granulocyte # (Auto) 0.01 K/uL (0.00-0.02) 07/21/21 Na 137 mmol/L (136-145) 07/21/21 K 3.5 mmol/L (3.5-5.1) 07/21/21 Cl 103 mmol/L (98-107) 07/21/21 CO2 26 mmol/L (21-32) 07/21/21 Anion Gap 8 (3-11) 07/21/21 BUN 28 mg/dl (6-23) H 07/21/21 Creatinine 1.39 mg/dl (0.6-1.2) H 07/21/21 Estimated GFR ( Amer) 46.6 ml/min 07/21/21 Estimated GFR (Non-Af Amer) 40.2 ml/min 07/21/21 BUN/Creatinine Ratio 20.1 (10-20) H 07/21/21 Glu 162 mg/dl (70-99(Fasting)) H 07/21/21 Ca 8.4 mg/dl (8.5-10.1) L 07/21/21 Phosphorus Level 3.7 mg/dl (2.5-4.9) 07/21/21 Mg 2.3 mg/dl (1.7-2.4) 07/21/21 03:59 07/21/21 Calcium Level 8.4 mg/dl (8.5-10.1) L 07/21/21 03:59 07/21/21 Jesu Test Pass 07/21/21 04:51 07/21/21 Diagnostic Findings (Past 24 Hours) Chest X-Ray 07/21/21 07:00 XR chest 1V portable HISTORY: 65 years-old Female f/u up acute respiratory failure COMPARISON: Chest radiograph 07/20/2021 TECHNIQUE: Portable AP view of the chest FINDINGS: Cardiac silhouette is enlarged. Coronary arterial stent. Endotracheal tube overlies the midline terminating 2.1 cm superior to the rona. An enteric tube is present which courses into the stomach with distal tip outside the imbre-ot-hayn. No pneumothorax. Pulmonary vascular congestion with interstitial coarsening. There is improved aeration of the mid to upper lung zones. Increased size of the layering pleural effusions with bibasilar consolidation. Degenerative changes of the shoulders and spine. IMPRESSION: 1. Lines and tubes as above. 2. Improved aeration of the mid to upper lung zones. 3. Layering pleural effusions with persistent bibasilar consolidation. ACT 112: Negative or not required by law. The above report was generated using voice recognition software. It may contain grammatical, syntax or spelling errors. Electronically signed by: Asher Liu M.D. 07/21/2021 7:40 AM I & O Totals 24 Hours 07/20/21 07/21/21 07/22/21 06:59 06:59 06:59 Intake Total 118.588 / 740.558 3038.937 / 1139.937 172.047 / 172.047 Output Total 1850 / 1850 2475 / 2475 Balance -1731.412 / -1731.412 -1335.063 / -1335.063 172.047 / 172.047 Cumulative 07/19/21 23:21 thru 07/21/21 07:33 Intake Total 1430.572 Output Total 4325 Balance -2894.428 RT Ventilator Mngmt (Last Documented) Ventilator Ordered Settings Ventilator Support Mode Assist Control 07/21/21 04:00 Respiratory Rate 14 07/21/21 06:00 Ventilator Tidal Volume 400 07/21/21 04:00 Setting Minute Ventilation 6.4 07/21/21 03:30 Positive End Expiratory 5 07/21/21 04:00 Pressure Fraction of Inspired Oxygen 28 07/21/21 04:00 Ventilator - PT Measurements Respiratory Rate 14 Exhaled Tidal Volume 400 Minute Ventilation 6.4 Peak Inspiratory Airway 17 Pressure Plateau Pressure 15.4 Respiratory Cycle Inspiratory: 1:3.7 Expiratory Ratio Inspiratory Phase Time 0.8 End-Tidal CO2 35 Static Lung Compliance 38.46 Dynamic Lung Compliance 33.33 Normal Static Lung Compliance 47.00 Patient Measurements Comment Post-ABG FiO2 decreased per S. KIM Ballard. Coding Level of Care Code 16617 Subseq Hosp Care Lvl 3 Diagnoses Admitted to intensive care unit Z78.9 Acute respiratory failure with hypoxia J96.01 Flash pulmonary edema J81.0 CAD (coronary artery disease) I25.10 Status post insertion of drug-eluting stent into left anterior descending (LAD) artery Z95.5 DAVID (obstructive sleep apnea) G47.33 Ischemic cardiomyopathy I25.5 DMII (diabetes mellitus, type 2) E11.9 Acute on chronic systolic HF (heart failure) I50.23
--- NOTE | 2021-07-21 08:44 | Cardiology Progress Note ---
Date of Service July 21, 2021 Assessment & Plan (1) Acute respiratory failure with hypoxia: (2) Flash pulmonary edema: (3) Acute on chronic systolic HF (heart failure): (4) Bifascicular block: Plan: -Pt required endotracheal intubation for what appears to be recurrent flash pulmonary edema episode. Noted recent weight gain , however per bystander description of patient with acute "panic" and acute respiratory compromise along with chest X-ray findings certainly flash pulmonary edema event seems likely. At time of presentation in May,, symptoms rapidly improved with IV diuretic therapy. By the time pt had contact with medical care with this episode , respiratory failure had already occurred. HS Troponin of 18.1 pg/ml at 12:18 am, and 112 pg/ml 8 hours later, so has progressed , but not to the extent that her (low sensitivity) Troponin increased in May (levels of 0.08 ng/ml then the progressed to 6.9 and 11.6 ng/ml over 20 hr span. Echocardiogram with interval further decline in LVEF from 25-30% to 20-25% with apical akinesis and generalized worsening LV function compared to May,. Echo findings raise concern of for lack of viability of distal LAD territory at this time, compared to prior presentation. Patient did present with BP of 204/120 and therefore hypertension related event is a consideration or progression of her CAD. SARS-CoV-2 screen negative. Plan: Patient's pulmonary edema has improved. Suspect mixed etiology of her complaints including LV systolic dysfunction, hypertensive urgency. EKG is not reflective of acute large vessel closure with last cardiac catheterization demonstrating mild to moderate diffuse atherosclerosis with coronary mention to small left anterior descending. Troponins are consistent with demand ischemia currently no indications for acute coronary event Recommendations: Weaning trial anticipated. Continue oral beta-erickson. Would not use IV hydralazine unopposed (without beta-erickson) Add topical nitrates for preload reduction if blood pressure Will likely need additional IV furosemide later today as blood pressure allows Admission and Anticipated Discharge Date Admission Date: July 20, 2021 Subjective Patient was seen and examined, chart, medications, telemetry reviewed. Patient remains sedated and intubated. Hemodynamically stable Pulm edema is substantially improved by x-ray this morning Review of Systems Review of Systems: Unobtainable due to endotracheal tube Physical Exam Physical Exam: Temp Pulse Resp BP Pulse Ox 36.6 C 68 17 137/67 99 07/20/21 03:49 07/20/21 07:10 07/20/21 07:10 07/20/21 06:00 07/20/21 07:10 Constitutional: + mechanically ventilated Neck: trachea midline, no thyromegaly Respiratory: Auscultation: + diminished lung sounds (decreased BS at the bases ) Cardiovascular: Rate/Rhythm: regular rate and regular rhythm Heart Sounds: no murmur Extremities: + edema (1+ bilateral LE edema ) Gastrointestinal (Abdomen): normal bowel sounds, soft, nontender, no hepatosplenomegaly Results & Data ([facility]) Vital Signs (Past 12 Hours) Vital Signs Temp Pulse Resp BP Pulse Ox Pulse Ox 07/21/21 08:00 75 17 91 07/21/21 07:30 74 13 148/91 H 98 07/21/21 07:00 61 16 134/66 98 07/21/21 06:45 61 14 97 07/21/21 06:00 37.3 C 61 14 106/59 L 96 07/21/21 05:30 61 14 101/53 L 96 07/21/21 05:00 61 14 105/55 L 96 07/21/21 04:30 61 14 107/62 96 07/21/21 04:00 69 14 105/61 95 07/21/21 03:51 96 07/21/21 03:30 60 16 87/49 L 95 07/21/21 03:00 37.3 C 62 16 90/55 L 95 07/21/21 02:00 63 16 95/54 L 94 07/21/21 01:00 66 16 87/57 L 94 07/21/21 00:00 86 16 102/54 L 94 07/20/21 23:00 80 16 109/62 95 07/20/21 22:40 71 16 96 07/20/21 22:15 38.0 C H 07/20/21 22:00 69 16 115/58 L 96 07/20/21 21:00 72 16 130/60 96 Laboratory Results Laboratory Results - last 24 hr 07/20/21 07/20/21 07/20/21 05:31 08:11 10:47 WBC RBC Hgb POC Hgb Hct POC Hct MCV MCH MCHC RDW Std Deviation RDW Coeff of Ronaldo Plt Count MPV Immature Gran % (Auto) Neut % (Auto) Lymph % (Auto) [place] % (Auto) Eos % (Auto) Baso % (Auto) Neut # (Auto) Lymph # (Auto) [place] # (Auto) Eos # (Auto) Baso # (Auto) Immature Gran # (Auto) Sample Site POC pH POC pCO2 POC pO2 POC HCO3 POC Total CO2 POC Base Excess ABG pH (Temp Correct) ABG pCO2 (Temp Corrct POC ABG pO2 at Pt Temp POC ABG O2 Sat Jesu Test O2 Delivery Device POC O2 Rate Minute Ventilation POC FiO2 Tidal Volume PEEP POC Sodium Sodium POC Potassium Potassium Chloride Carbon Dioxide Anion Gap BUN Creatinine Est Cr Clr Drug Dosing Est GFR ( Amer) Est GFR (Non-Af Amer) BUN/Creatinine Ratio Glucose POC Glucose Estimat Average Glucose 200 Hemoglobin A1c 8.6 H Calcium Phosphorus Magnesium Troponin I High Sens 112.6 H* D 126.5 H* 07/20/21 07/20/21 07/20/21 11:44 15:09 16:45 WBC RBC Hgb POC Hgb Hct POC Hct MCV MCH MCHC RDW Std Deviation RDW Coeff of Ronaldo Plt Count MPV Immature Gran % (Auto) Neut % (Auto) Lymph % (Auto) [place] % (Auto) Eos % (Auto) Baso % (Auto) Neut # (Auto) Lymph # (Auto) [place] # (Auto) Eos # (Auto) Baso # (Auto) Immature Gran # (Auto) Sample Site POC pH POC pCO2 POC pO2 POC HCO3 POC Total CO2 POC Base Excess ABG pH (Temp Correct) ABG pCO2 (Temp Corrct POC ABG pO2 at Pt Temp POC ABG O2 Sat Jesu Test O2 Delivery Device POC O2 Rate Minute Ventilation POC FiO2 Tidal Volume PEEP POC Sodium Sodium POC Potassium Potassium Chloride Carbon Dioxide Anion Gap BUN Creatinine Est Cr Clr Drug Dosing Est GFR ( Amer) Est GFR (Non-Af Amer) BUN/Creatinine Ratio Glucose POC Glucose 161 H 130 H Estimat Average Glucose Hemoglobin A1c Calcium Phosphorus Magnesium Troponin I High Sens 110.9 H* 07/20/21 07/20/21 07/21/21 20:23 22:51 00:46 WBC RBC Hgb POC Hgb Hct POC Hct MCV MCH MCHC RDW Std Deviation RDW Coeff of Ronaldo Plt Count MPV Immature Gran % (Auto) Neut % (Auto) Lymph % (Auto) [place] % (Auto) Eos % (Auto) Baso % (Auto) Neut # (Auto) Lymph # (Auto) [place] # (Auto) Eos # (Auto) Baso # (Auto) Immature Gran # (Auto) Sample Site POC pH POC pCO2 POC pO2 POC HCO3 POC Total CO2 POC Base Excess ABG pH (Temp Correct) ABG pCO2 (Temp Corrct POC ABG pO2 at Pt Temp POC ABG O2 Sat Jesu Test O2 Delivery Device POC O2 Rate Minute Ventilation POC FiO2 Tidal Volume PEEP POC Sodium Sodium POC Potassium Potassium Chloride Carbon Dioxide Anion Gap BUN Creatinine Est Cr Clr Drug Dosing Est GFR ( Amer) Est GFR (Non-Af Amer) BUN/Creatinine Ratio Glucose POC Glucose 161 H 196 H Estimat Average Glucose Hemoglobin A1c Calcium Phosphorus Magnesium Troponin I High Sens 81.6 H* D 07/21/21 07/21/21 07/21/21 03:59 03:59 04:03 WBC 6.55 RBC 2.96 L Hgb 8.9 L POC Hgb Hct 27.2 L POC Hct MCV 91.9 MCH 30.1 MCHC 32.7 RDW Std Deviation 49.6 H RDW Coeff of Ronaldo 14.7 H Plt Count 226 MPV 10.5 H Immature Gran % (Auto) 0.2 Neut % (Auto) 70.4 Lymph % (Auto) 20.8 [place] % (Auto) 7.2 Eos % (Auto) 1.2 Baso % (Auto) 0.2 Neut # (Auto) 4.62 Lymph # (Auto) 1.36 [place] # (Auto) 0.47 Eos # (Auto) 0.08 Baso # (Auto) 0.01 Immature Gran # (Auto) 0.01 Sample Site POC pH POC pCO2 POC pO2 POC HCO3 POC Total CO2 POC Base Excess ABG pH (Temp Correct) ABG pCO2 (Temp Corrct POC ABG pO2 at Pt Temp POC ABG O2 Sat Jesu Test O2 Delivery Device POC O2 Rate Minute Ventilation POC FiO2 Tidal Volume PEEP POC Sodium Sodium 137 POC Potassium Potassium 3.5 Chloride 103 Carbon Dioxide 26 Anion Gap 8 BUN 28 H Creatinine 1.39 H D Est Cr Clr Drug Dosing 42.8 Est GFR ( Amer) 46.6 Est GFR (Non-Af Amer) 40.2 BUN/Creatinine Ratio 20.1 H Glucose 162 H POC Glucose 188 H Estimat Average Glucose Hemoglobin A1c Calcium 8.4 L Phosphorus 3.7 Magnesium 2.3 Troponin I High Sens 62.7 H* D 07/21/21 07/21/21 04:51 07:55 WBC RBC Hgb POC Hgb 7.8 L Hct POC Hct 23 L MCV MCH MCHC RDW Std Deviation RDW Coeff of Ronaldo Plt Count MPV Immature Gran % (Auto) Neut % (Auto) Lymph % (Auto) [place] % (Auto) Eos % (Auto) Baso % (Auto) Neut # (Auto) Lymph # (Auto) [place] # (Auto) Eos # (Auto) Baso # (Auto) Immature Gran # (Auto) Sample Site R Radial POC pH 7.46 H POC pCO2 37 POC pO2 69 L POC HCO3 26 H POC Total CO2 27 POC Base Excess 2.0 H ABG pH (Temp Correct) 7.454 H ABG pCO2 (Temp Corrct 37 POC ABG pO2 at Pt Temp 70 POC ABG O2 Sat 95.0 Jesu Test Pass O2 Delivery Device Ventilator POC O2 Rate 16 Minute Ventilation 6.4 POC FiO2 28 Tidal Volume 400 PEEP 5 POC Sodium 139 Sodium POC Potassium 3.3 Potassium Chloride Carbon Dioxide Anion Gap BUN Creatinine Est Cr Clr Drug Dosing Est GFR ( Amer) Est GFR (Non-Af Amer) BUN/Creatinine Ratio Glucose POC Glucose 120 H Estimat Average Glucose Hemoglobin A1c Calcium Phosphorus Magnesium Troponin I High Sens Medications Administered Current Medications Aspirin (Aspirin 81 Mg Chew) 81 mg PO QAM GLYNN Stop: 08/19/21 08:59 Last Admin: 07/21/21 07:33 Dose: 81 mg Documented by: Atorvastatin Calcium (Atorvastatin 40 Mg Tab) 80 mg PO HS GLYNN Stop: 08/19/21 20:59 Last Admin: 07/20/21 20:09 Dose: 80 mg Documented by: Dextrose (Dextrose 50% 50 Ml Syringe) 25 - 50 ml IV UD PRN; Protocol PRN Reason: Hypoglycemia Protocol Stop: 08/19/21 03:57 Ezetimibe (Ezetimibe 10 Mg Tablet) 10 mg PO DAILY GLYNN Stop: 08/19/21 08:59 Last Admin: 07/21/21 07:31 Dose: 10 mg Documented by: Enoxaparin Sodium (Enoxaparin Inj 40 Mg/0.4 Ml Syr) 40 mg SQ Q24H GLYNN Stop: 08/19/21 08:59 Last Admin: 07/21/21 07:31 Dose: 40 mg Documented by: Famotidine (Famotidine 20 Mg Tab) 20 mg PO BID GLYNN Stop: 08/19/21 08:59 Last Admin: 07/21/21 07:30 Dose: 20 mg Documented by: Gabapentin (Gabapentin 250 Mg/5 Ml 470 Ml Btl) 200 mg PO TID GLYNN Stop: 08/19/21 08:59 Last Admin: 07/21/21 07:30 Dose: 200 mg Documented by: Glucagon (Glucagon For Inj 1 Mg Vial) 1 mg SQ UD PRN; Protocol PRN Reason: Hypoglycemia Protocol Stop: 08/19/21 03:57 Glucose (Glucose 40% Gel 15 Gm Tube) 15 - 30 gm PO UD PRN; Protocol PRN Reason: Hypoglycemia Protocol Stop: 08/19/21 03:57 Glucose (Glucose 10 Tabs/Tube) 4 - 8 tabs PO UD PRN; Protocol PRN Reason: Hypoglycemia Protocol Stop: 08/19/21 04:14 Hydralazine HCl (Hydralazine Hcl 20 Mg/Ml Vial) 5 mg IV Q4H PRN PRN Reason: PRN SBP > 150 Stop: 08/20/21 08:17 Last Admin: 07/21/21 08:37 Dose: 5 mg Documented by: Potassium Chloride (K Jesus / Wtr) 10 meq in 100 mls @ 100 mls/hr IV Q1H [facility] Stop: 07/21/21 10:14 Last Admin: 07/21/21 08:37 Dose: 100 mls/hr Documented by: Insulin Aspart (Insulin Aspart Per Unit) 0 units SC Q4 GLYNN Stop: 08/19/21 07:59 Last Admin: 07/21/21 07:58 Dose: Not Given Documented by: Lansoprazole (Lansoprazole 30 Mg Soltab) 30 mg NG DAILY GLYNN Stop: 08/19/21 10:14 Last Admin: 07/21/21 07:30 Dose: 30 mg Documented by: Lisinopril (Lisinopril 10 Mg Tab) 10 mg PO DAILY [facility] Stop: 08/21/21 08:59 Last Admin: 07/21/21 08:35 Dose: Not Given Documented by: Metoprolol Tartrate (Metoprolol Tartrate 25 Mg Tab) 12.5 mg PO Q6 GLYNN Stop: 08/19/21 11:59 Last Admin: 07/21/21 06:10 Dose: Not Given Documented by: Miscellaneous (Carbohydrates For Hypoglycemia ) 15 - 30 gm PO UD PRN PRN Reason: Hypoglycemia Protocol Stop: 08/19/21 03:57 Miscellaneous (Icu Electrolyte Replacement Protocol) 1 ea N/A BID@06,18 GLYNN; Protocol Stop: 07/27/21 17:59 Last Admin: 07/21/21 06:08 Dose: 1 ea Documented by: Miscellaneous Information (Pharmacy Glycemic Mgmt Consult) 1 ea N/A UD PRN; Protocol PRN Reason: Consult Stop: 08/19/21 03:57 Nitroglycerin (Nitroglycerin Sl 0.4 Mg/Tab Tab) 0.4 mg SL UD PRN PRN Reason: Chest Pain Stop: 08/19/21 03:50 Oxybutynin Chloride (Oxybutynin Chloride 5 Mg Tab) 5 mg PO DAILY [facility] Stop: 08/19/21 08:59 Last Admin: 07/21/21 07:30 Dose: 5 mg Documented by: Propofol (Propofol Bolus From Bag) 20 mg IV Q5M PRN PRN Reason: Sedation Stop: 07/23/21 00:56 Last Admin: 07/20/21 02:48 Dose: 20 mg Documented by: Sertraline HCl (Sertraline Hcl 100 Mg Tablet) 100 mg PO QAM [facility] Stop: 08/19/21 08:59 Last Admin: 07/21/21 07:30 Dose: 100 mg Documented by: Ticagrelor (Ticagrelor 90 Mg Tab) 90 mg PO BID [facility] Stop: 08/19/21 08:59 Last Admin: 07/21/21 07:30 Dose: 90 mg Documented by:
[2021-07-21] MEDS: METOPROLOL SUCC 25MG EXT REL TAB PO SCH ×2 (11:34→19:59)
[2021-07-21] MEDS ORDERED: Nursing to Pharmacy Communication SCH (14:15)
[2021-07-21] MEDS: GABAPENTIN 100 MG CAP PO SCH ×2 (14:40→19:59)
[2021-07-21] MEDS: ATORVASTATIN 40 MG TAB PO SCH (20:00)
[2021-07-22] MEDS: INSULIN ASPART PER UNIT SC SCH ×5 (03:35→20:43)
[2021-07-22 05:27] LABS: Basophils # (auto) 0.01 K/uL (0-0.2); Basophils % (auto) 0.2 %; Eosinophils # (auto) 0.16 K/uL (0-0.5); Eosinophils % (auto) 2.8 %; Hematocrit (blood only) 27.5 % (37-47); Hemoglobin 8.9 g/dL (12.0-16.0); Immature Granulocytes # (auto) 0.01 K/uL (0.00-0.02); Immature Granulocytes % (auto) 0.2 %; Lymphocytes % (auto) 22.4 %; Mean Corpuscular Hemoglobin 29.9 pg (25-34); Mean Corpuscular Hgb Conc 32.4 g/dL (32-36); Mean Corpuscular Volume 92.3 fL (80-100); Mean Platelet Volume 9.8 fL (7.4-10.4); Monocytes # (auto) 0.48 K/uL (0.11-0.59); Monocytes % (auto) 8.3 %; Neutrophils # (auto) 3.84 K/uL (1.4-6.5); Neutrophils % (auto) 66.1 %; Platelet Count 202 K/uL (130-400); RDW Coefficient of Variation 14.4 % (11.5-14.5); RDW Standard Deviation 48.6 fL (36.4-46.3); Red Blood Count 2.98 M/uL (4.2-5.4)
[2021-07-22 05:45] LABS: BUN Creatinine Ratio 25.4 (10-20); Calcium 8.5 mg/dl (8.5-10.1); Creatinine Clr Calc Pharmacy 52.1 ml/min; Est GFR (African American) 59.3 ml/min; Est GFR (Non-African American) 51.1 ml/min; Magnesium 2.1 mg/dl (1.7-2.4); Phosphorus 4.5 mg/dl (2.5-4.9)
[2021-07-22] MEDS: ICU ELECTROLYTE REPLACEMENT PROTOCOL SCH ×2 (06:10→21:39)
--- NOTE | 2021-07-22 07:39 | Critical Care Progress Note ---
Date of Service July 22, 2021 Assessment & Plan (1) Admitted to intensive care unit: Plan: Reason Critically Ill: 65-year-old female with acute on chronic CHF exacerbation with respiratory failure and hypoxia due to pulmonary edema requiring emergent endotracheal intubation. 24-hour events: Patient was liberated from the mechanical ventilator yesterday without difficulty. She is been on nasal cannula ever since. She is up to the chair. She been hemodynamically stable. She is tolerating a diet. She feels much better. NEURO -no current issues CARDIAC/VASCULAR -flash pulmonary edema with congestive heart failure and non-ST elevation myocardial infarction. Continue medical management. [place] cardiology assistance. No indication for repeat cardiac cath. Serum creatinine better today. Continue beta-erickson and lisinopril. Given hypertension, will place on low-dose of oral hydralazine for afterload reduction. Restart Lasix given improvement in serum creatinine. RESPIRATORY -continue incentive spirometry. Wean oxygen as tolerated. Small bilateral pleural effusions. Continue to follow clinically. No indication for thoracentesis. GI/NUTRITION -tolerating diet.. H2 erickson and PPI per home meds RENAL/LYTES -serum creatinine better this morning. Restart Lasix. Continue electrolyte replacement electrolyte replacement protocol. -discontinue Lerner catheter ENDO -glycemic control per protocol HEME -mild anemia. No signs of active ongoing bleeding. No indication for transfusion currently. ID - * No concerns for infectious causes at this time. LINES/IV ACCESS - * PIVs x2 * ETT * OGT * Lerner DVT PROPHYLAXIS - * Lovenox * SCDs PT and OT evaluations as the patient required 2 person assist to get out of bed yesterday. Patient is hemodynamically stable and okay to transfer to the floor. Critical care services will sign off. Feel free to contact us if we can be of additional assistance. (2) Acute respiratory failure with hypoxia: (3) Flash pulmonary edema: (4) CAD (coronary artery disease): (5) Status post insertion of drug-eluting stent into left anterior descending (LAD) artery: (6) DAVID (obstructive sleep apnea): (7) Ischemic cardiomyopathy: (8) DMII (diabetes mellitus, type 2): (9) Acute on chronic systolic HF (heart failure): Admission and Anticipated Discharge Date Admission Date: July 20, 2021 Subjective Patient seen and examined. EMR reviewed. The patient is doing well clinically. She was extubated yesterday. She denies chest pain or palpitations. Her shortness of breath is much better. She is tolerating a diet. She is up to the chair yesterday. Review of Systems Review of Systems: All systems reviewed & are unremarkable except as noted in Subjective Physical Exam Constitutional: WD/WN, vitals as above Neck: trachea midline, no thyromegaly Respiratory: normal respiratory effort, lungs clear to auscultation Cardiovascular: RRR, no murmur, no edema Gastrointestinal (Abdomen): normal bowel sounds, soft, nontender, no hepatosplenomegaly Musculoskeletal: Extremities: extremities normal to inspection Skin: no rashes, warm and dry Lymphatic: no cervical lymphadenopathy Results & Data Results & Data ([facility]) Vital Signs (Past 12 Hours) Vital Signs Temp Pulse Resp BP Pulse Ox 07/22/21 06:00 70 23 142/71 H 95 07/22/21 05:00 74 20 136/76 96 07/22/21 04:00 36.8 C 75 20 140/73 96 07/22/21 03:00 74 20 139/66 97 07/22/21 02:00 71 20 133/77 96 07/22/21 01:00 71 21 129/69 96 07/22/21 00:00 37.1 C 74 21 134/64 94 07/21/21 23:00 76 26 H 133/72 95 07/21/21 22:00 75 20 143/68 H 96 07/21/21 21:00 78 21 142/82 H 96 07/21/21 20:00 37.0 C 74 19 141/72 H 94 Critical Care Results & Data Vital Signs (Past 12 Hours) Vital Signs Temp Pulse Resp BP Pulse Ox 07/22/21 06:00 70 23 142/71 H 95 07/22/21 05:00 74 20 136/76 96 07/22/21 04:00 36.8 C 75 20 140/73 96 07/22/21 03:00 74 20 139/66 97 07/22/21 02:00 71 20 133/77 96 07/22/21 01:00 71 21 129/69 96 07/22/21 00:00 37.1 C 74 21 134/64 94 07/21/21 23:00 76 26 H 133/72 95 07/21/21 22:00 75 20 143/68 H 96 07/21/21 21:00 78 21 142/82 H 96 07/21/21 20:00 37.0 C 74 19 141/72 H 94 Lab & Micro Results (Past 24 Hours) RBC 2.98 M/uL (4.2-5.4) L 07/22/21 WBC 5.80 K/uL (4.8-10.8) 07/22/21 Hgb 8.9 g/dL (12.0-16.0) L 07/22/21 Hct 27.5 % (37-47) L 07/22/21 MCV 92.3 fL (80-100) 07/22/21 MCH 29.9 pg (25-34) 07/22/21 MCHC 32.4 g/dL (32-36) 07/22/21 RDW Standard Deviation 48.6 fL (36.4-46.3) H 07/22/21 RDW Coefficient of Variation 14.4 % (11.5-14.5) 07/22/21 Plt Count 202 K/uL (130-400) 07/22/21 MPV 9.8 fL (7.4-10.4) 07/22/21 Neutrophils (%) (Auto) 66.1 % 07/22/21 Lymphocytes (%) (Auto) 22.4 % 07/22/21 Monocytes # (Auto) 0.48 K/uL (0.11-0.59) 07/22/21 Eosinophils # (Auto) 0.16 K/uL (0-0.5) 07/22/21 Immature Granulocyte % (Auto) 0.2 % 07/22/21 Neutrophils # (Auto) 3.84 K/uL (1.4-6.5) 07/22/21 Lymphocytes # (Auto) 1.30 K/uL (1.2-3.4) 07/22/21 Monocytes # (Auto) 0.48 K/uL (0.11-0.59) 07/22/21 Eosinophils # (Auto) 0.16 K/uL (0-0.5) 07/22/21 Basophils # (Auto) 0.01 K/uL (0-0.2) 07/22/21 Immature Granulocyte # (Auto) 0.01 K/uL (0.00-0.02) 07/22/21 Na 139 mmol/L (136-145) 07/22/21 K 4.0 mmol/L (3.5-5.1) 07/22/21 Cl 105 mmol/L (98-107) 07/22/21 CO2 27 mmol/L (21-32) 07/22/21 Anion Gap 7 (3-11) 07/22/21 BUN 29 mg/dl (6-23) H 07/22/21 Creatinine 1.14 mg/dl (0.6-1.2) 07/22/21 Estimated GFR ( Amer) 59.3 ml/min 07/22/21 Estimated GFR (Non-Af Amer) 51.1 ml/min 07/22/21 BUN/Creatinine Ratio 25.4 (10-20) H 07/22/21 Glu 170 mg/dl (70-99(Fasting)) H 07/22/21 Ca 8.5 mg/dl (8.5-10.1) 07/22/21 Phosphorus Level 4.5 mg/dl (2.5-4.9) 07/22/21 Mg 2.1 mg/dl (1.7-2.4) 07/22/21 05:04 07/22/21 Calcium Level 8.5 mg/dl (8.5-10.1) 07/22/21 05:04 07/22/21 Diagnostic Findings (Past 24 Hours) Chest X-Ray 07/21/21 07:00 XR chest 1V portable HISTORY: 65 years-old Female f/u up acute respiratory failure COMPARISON: Chest radiograph 07/20/2021 TECHNIQUE: Portable AP view of the chest FINDINGS: Cardiac silhouette is enlarged. Coronary arterial stent. Endotracheal tube overlies the midline terminating 2.1 cm superior to the rona. An enteric tube is present which courses into the stomach with distal tip outside the [id number]. No pneumothorax. Pulmonary vascular congestion with interstitial coarsening. There is improved aeration of the mid to upper lung zones. Increased size of the layering pleural effusions with bibasilar consolidation. Degenerative changes of the shoulders and spine. IMPRESSION: 1. Lines and tubes as above. 2. Improved aeration of the mid to upper lung zones. 3. Layering pleural effusions with persistent bibasilar consolidation. ACT 112: Negative or not required by law. The above report was generated using voice recognition software. It may contain grammatical, syntax or spelling errors. Electronically signed by: Asher Liu M.D. 07/21/2021 7:40 AM I & O Totals 24 Hours 07/21/21 07/22/21 07/23/21 06:59 06:59 06:59 Intake Total 1139.937 / 3146.348 2102.047 / 1422.047 Output Total 2475 / 2475 3000 / 3000 Balance -1335.063 / -1335.063 -1577.953 / -1577.953 Cumulative 07/19/21 23:21 thru 07/22/21 06:00 Intake Total 2680.572 Output Total 7325 Balance -4644.428 RT Ventilator Mngmt (Last Documented) Ventilator Ordered Settings Ventilator Support Mode CPAP 07/21/21 07:25 Respiratory Rate 23 07/22/21 06:00 Ventilator Tidal Volume 400 07/21/21 04:00 Setting Minute Ventilation 6.2 07/21/21 07:25 Ventilator Positive Pressure 5 07/21/21 07:25 Support Setting Positive End Expiratory 5 07/21/21 07:25 Pressure Fraction of Inspired Oxygen 28 07/21/21 07:25 Ventilator - PT Measurements Respiratory Rate 23 Exhaled Tidal Volume 386 Minute Ventilation 6.2 Peak Inspiratory Airway 12 Pressure Plateau Pressure 15.4 Respiratory Cycle Inspiratory: 1:3.7 Expiratory Ratio Inspiratory Phase Time 0.8 End-Tidal CO2 39 Static Lung Compliance 38.46 Dynamic Lung Compliance 55.14 Normal Static Lung Compliance 49.00 Patient Measurements Comment Post-ABG FiO2 decreased per S. ION Ballard Coding Level of Care Code 72479 Subseq Hosp Care Lvl 3 Diagnoses Admitted to intensive care unit Z78.9 Acute respiratory failure with hypoxia J96.01 Flash pulmonary edema J81.0 CAD (coronary artery disease) I25.10 Status post insertion of drug-eluting stent into left anterior descending (LAD) artery Z95.5 DAVID (obstructive sleep apnea) G47.33 Ischemic cardiomyopathy I25.5 DMII (diabetes mellitus, type 2) E11.9 Acute on chronic systolic HF (heart failure) I50.23
--- NOTE | 2021-07-22 07:49 | XRay Report ---
SINGLE VIEW CHEST CLINICAL HISTORY: Follow-up respiratory failure. FINDINGS: An AP, portable, upright chest radiograph is compared to study dated 07/21/2021. Endotrachea l and enteric tubes have been removed. The heart is enlarged. The pulmonary vasculature is noncongest ed. A coronary artery stent is again noted. There are small pleural effusions with dependent consolid ation, left greater than right. No pneumothorax is seen. The skeletal structures are osteopenic. The bony thorax is grossly intact. Calcific tendinopathy is noted in the right shoulder. IMPRESSION: 1. Endotracheal and enteric tubes have been removed. 2. Small pleural effusions with dependent consolidation, left larger than right. 3. Cardiomegaly. ACT 112: Negative or not required by law. Electronically signed by: Jorge Crowe M.D. 07/22/2021 7:46 AM
--- NOTE | 2021-07-22 08:08 | Hospitalist Progress Note ---
Date of Service July 22, 2021 Assessment & Plan (1) Flash pulmonary edema: (2) Acute respiratory failure with hypoxia: (3) Acute on chronic systolic HF (heart failure): Plan: This is a 65-year-old female who presents with acute congestive heart failure, flash pulm. edema, elev. troponin. 1. Acute respiratory failure mostly secondary to acute systolic and diastolic congestive heart failure, ejection fraction was 25% to 30%, last echo in May of 2021. Received IV Lasix in the ER with about a liter of urine out as per ER. Continued w/ IV Lasix 40 b.i.d. The patient was intubated in the ER. Now extubated (07/21) in ICU care. Critical care consulted. Echocardiogram -LV is normal in size. There is a diffuse hypokinesis to akinesis with focal akinesis of the anterior septum and apex. There is mild concentric LVH. LV systolic function is severely reduced. LVEF 20 to 25%. LA is mildly dilated. Grade 1 diastolic dysfunction. There is a moderate sized left pleural effusion. There is a small right pleural effusion. Compared to the previous study performed in May 2021 there has been further decline in the LVEF and new pleural effusions are present. Dilated inferior vena cava with reduced collapsibility with sniff indicates an elevated right atrial pressure of 15 mmHg. Doppler findings do not suggest pulmonary hypertension. There is no significant valvular pathology. Cardiology consulted for further recommendations. Cont. w/ diuresis, monitor I&Os Increase toprol to 37.5mg bid 2. Possible non-ST elevation myocardial infarction, possibly secondary to demand ischemia as high sensitivity troponin is elevated.Patient did present with BP of 204/120 and therefore hypertension related event is a consideration or progression of her CAD. Cardiology following. 3. CAD, s/p stent to LAD in February 2020, in last May of 2021 again had a LAD drug-eluting stent. On aspirin, Brilinta, beta erickson, statin, and ezetimibe, which are continued. Cardiology following Fever spiked fever on night of 07/20 and 07/22 Clinically patient is actually improving Obtain UA, chest x-ray, blood culture, start empiric Rocephin, continue with incentive spirometry 4. Diabetes: Hold metformin. Placed on insulin sliding scale and Lantus and monitor the blood sugar and follow the HbA1c levels. 5. History of hypertension: Continue metoprolol, lisinopril. Will monitor the blood pressure. 6. History of obstructive sleep apnea. Needs followup with sleep study. Will do nocturnal pulse ox when the patient is stable in the hospital. 7. Female stress incontinence: Continue oxybutynin. 8. Hyperlipidemia: On statin. 9. Depression: On Zoloft. 10. Gastroesophageal reflux disease: On Pepcid. DVT prophylaxis: Placed on Lovenox. DISPOSITION: transfer from ICU to PCU. CODE: full code. Admission and Anticipated Discharge Date Admission Date: July 20, 2021 Subjective Patient seen in follow-up of flash pulmonary edema, acute systolic CHF, elevated troponin Patient was extubated, currently feeling much better She is alert oriented, answering questions appropriately She is speaking in full sentences, tolerating diet Denies any chest pain, palpitations, increased shortness of breath, abdominal pain, nausea vomiting Patient's daughter is at bedside, and updated Spiked fever 38C 07/20 night, Then again this evening 37.9C 5/17pm obtain UA, repeat CXR, blood cultx. empiric rocephin, c/w IS Review of Systems Review of Systems: All systems reviewed & are unremarkable except as noted in Subjective Physical Exam Physical Exam: GENERAL: WD/WN F , now extubated, in NAD HEENT: NC/AT. EOMI. Pupils equal, round and reactive to light. NECK: No JVD. No neck masses. CARDIOVASCULAR: S1 and S2 heard. Regular rate and rhythm. No murmur, no gallop. RESPIRATORY SYSTEM: Normal AP diameter. No accessory muscle use. + mild bilateral crackles . No wheezing. ABDOMEN: Soft, bowel sounds present, nontender, no distention. NEURO:Alert oriented, answering questions appropriately, no facial asymmetry, speech fluent, moves extremities EXTREMITIES: Mild pedal edema present, no erythema seen. Results & Data Results & Data ([facility]) Vital Signs (Past 12 Hours) Vital Signs Temp Pulse Resp BP Pulse Ox 07/22/21 06:00 70 23 142/71 H 95 07/22/21 05:00 74 20 136/76 96 07/22/21 04:00 36.8 C 75 20 140/73 96 07/22/21 03:00 74 20 139/66 97 07/22/21 02:00 71 20 133/77 96 07/22/21 01:00 71 21 129/69 96 07/22/21 00:00 37.1 C 74 21 134/64 94 07/21/21 23:00 76 26 H 133/72 95 07/21/21 22:00 75 20 143/68 H 96 07/21/21 21:00 78 21 142/82 H 96 Laboratory Results 07/22/21 07/22/21 07/22/21 Range/Units 07:27 05:04 05:04 WBC 5.80 (4.8-10.8) K/uL RBC 2.98 L (4.2-5.4) M/uL Hgb 8.9 L (12.0-16.0) g/dL Hct 27.5 L (37-47) % MCV 92.3 (80-100) fL MCH 29.9 (25-34) pg MCHC 32.4 (32-36) g/dL RDW Std Deviation 48.6 H (36.4-46.3) fL RDW Coeff of Ronaldo 14.4 (11.5-14.5) % Plt Count 202 (130-400) K/uL MPV 9.8 (7.4-10.4) fL Immature Gran % (Auto) 0.2 % Neut % (Auto) 66.1 % Lymph % (Auto) 22.4 % Morrison % (Auto) 8.3 % Eos % (Auto) 2.8 % Baso % (Auto) 0.2 % Neut # (Auto) 3.84 (1.4-6.5) K/uL Lymph # (Auto) 1.30 (1.2-3.4) K/uL Morrison # (Auto) 0.48 (0.11-0.59) K/uL Eos # (Auto) 0.16 (0-0.5) K/uL Baso # (Auto) 0.01 (0-0.2) K/uL Immature Gran # (Auto) 0.01 (0.00-0.02) K/uL Sodium 139 (136-145) mmol/L Potassium 4.0 (3.5-5.1) mmol/L Chloride 105 (98-107) mmol/L Carbon Dioxide 27 (21-32) mmol/L Anion Gap 7 (3-11) BUN 29 H (6-23) mg/dl Creatinine 1.14 (0.6-1.2) mg/dl Est Cr Clr Drug Dosing 52.1 ml/min Est GFR ( Amer) 59.3 ml/min Est GFR (Non-Af Amer) 51.1 ml/min BUN/Creatinine Ratio 25.4 H (10-20) Glucose 170 H (70-99(Fasting)) mg/dl POC Glucose 191 H (70-99) mg/dl Calcium 8.5 (8.5-10.1) mg/dl Phosphorus 4.5 (2.5-4.9) mg/dl Magnesium 2.1 (1.7-2.4) mg/dl 07/22/21 07/21/21 07/21/21 Range/Units 03:31 23:46 19:54 WBC (4.8-10.8) K/uL RBC (4.2-5.4) M/uL Hgb (12.0-16.0) g/dL Hct (37-47) % MCV (80-100) fL MCH (25-34) pg MCHC (32-36) g/dL RDW Std Deviation (36.4-46.3) fL RDW Coeff of Ronaldo (11.5-14.5) % Plt Count (130-400) K/uL MPV (7.4-10.4) fL Immature Gran % (Auto) % Neut % (Auto) % Lymph % (Auto) % Morrison % (Auto) % Eos % (Auto) % Baso % (Auto) % Neut # (Auto) (1.4-6.5) K/uL Lymph # (Auto) (1.2-3.4) K/uL Morrison # (Auto) (0.11-0.59) K/uL Eos # (Auto) (0-0.5) K/uL Baso # (Auto) (0-0.2) K/uL Immature Gran # (Auto) (0.00-0.02) K/uL Sodium (136-145) mmol/L Potassium (3.5-5.1) mmol/L Chloride (98-107) mmol/L Carbon Dioxide (21-32) mmol/L Anion Gap (3-11) BUN (6-23) mg/dl Creatinine (0.6-1.2) mg/dl Est Cr Clr Drug Dosing ml/min Est GFR ( Amer) ml/min Est GFR (Non-Af Amer) ml/min BUN/Creatinine Ratio (10-20) Glucose (70-99(Fasting)) mg/dl POC Glucose 154 H 183 H 283 H (70-99) mg/dl Calcium (8.5-10.1) mg/dl Phosphorus (2.5-4.9) mg/dl Magnesium (1.7-2.4) mg/dl 07/21/21 07/21/21 Range/Units 15:00 11:35 WBC (4.8-10.8) K/uL RBC (4.2-5.4) M/uL Hgb (12.0-16.0) g/dL Hct (37-47) % MCV (80-100) fL MCH (25-34) pg MCHC (32-36) g/dL RDW Std Deviation (36.4-46.3) fL RDW Coeff of Ronaldo (11.5-14.5) % Plt Count (130-400) K/uL MPV (7.4-10.4) fL Immature Gran % (Auto) % Neut % (Auto) % Lymph % (Auto) % Morrison % (Auto) % Eos % (Auto) % Baso % (Auto) % Neut # (Auto) (1.4-6.5) K/uL Lymph # (Auto) (1.2-3.4) K/uL Morrison # (Auto) (0.11-0.59) K/uL Eos # (Auto) (0-0.5) K/uL Baso # (Auto) (0-0.2) K/uL Immature Gran # (Auto) (0.00-0.02) K/uL Sodium (136-145) mmol/L Potassium (3.5-5.1) mmol/L Chloride (98-107) mmol/L Carbon Dioxide (21-32) mmol/L Anion Gap (3-11) BUN (6-23) mg/dl Creatinine (0.6-1.2) mg/dl Est Cr Clr Drug Dosing ml/min Est GFR ( Amer) ml/min Est GFR (Non-Af Amer) ml/min BUN/Creatinine Ratio (10-20) Glucose (70-99(Fasting)) mg/dl POC Glucose 180 H 173 H (70-99) mg/dl Calcium (8.5-10.1) mg/dl Phosphorus (2.5-4.9) mg/dl Magnesium (1.7-2.4) mg/dl Medications Administered Current Inpatient Medications Aspirin (Aspirin 81 Mg Chew) 81 mg PO QAM GLYNN Stop: 08/19/21 08:59 Last Admin: 07/21/21 07:33 Dose: 81 mg Documented by: Atorvastatin Calcium (Atorvastatin 40 Mg Tab) 80 mg PO HS GLYNN Stop: 08/19/21 20:59 Last Admin: 07/21/21 20:00 Dose: 80 mg Documented by: Dextrose (Dextrose 50% 50 Ml Syringe) 25 - 50 ml IV UD PRN; Protocol PRN Reason: Hypoglycemia Protocol Stop: 08/19/21 03:57 Ezetimibe (Ezetimibe 10 Mg Tablet) 10 mg PO DAILY GLYNN Stop: 08/19/21 08:59 Last Admin: 07/21/21 07:31 Dose: 10 mg Documented by: Enoxaparin Sodium (Enoxaparin Inj 40 Mg/0.4 Ml Syr) 40 mg SQ Q24H GLYNN Stop: 08/19/21 08:59 Last Admin: 07/21/21 07:31 Dose: 40 mg Documented by: Famotidine (Famotidine 20 Mg Tab) 20 mg PO BID GLYNN Stop: 08/19/21 08:59 Last Admin: 07/21/21 20:00 Dose: 20 mg Documented by: Furosemide (Furosemide Inj 20 Mg/2 Ml Vial) 20 mg IV DAILY GLYNN Stop: 08/21/21 08:59 Gabapentin (Gabapentin 100 Mg Cap) 200 mg PO TID GLYNN Stop: 08/20/21 14:29 Last Admin: 07/21/21 19:59 Dose: 200 mg Documented by: Glucagon (Glucagon For Inj 1 Mg Vial) 1 mg SQ UD PRN; Protocol PRN Reason: Hypoglycemia Protocol Stop: 08/19/21 03:57 Glucose (Glucose 40% Gel 15 Gm Tube) 15 - 30 gm PO UD PRN; Protocol PRN Reason: Hypoglycemia Protocol Stop: 08/19/21 03:57 Glucose (Glucose 10 Tabs/Tube) 4 - 8 tabs PO UD PRN; Protocol PRN Reason: Hypoglycemia Protocol Stop: 08/19/21 04:14 Hydralazine HCl (Hydralazine 10 Mg Tab) 10 mg PO TID [facility] Stop: 08/21/21 08:59 Insulin Aspart (Insulin Aspart Per Unit) 0 units SC Q4 GLYNN Stop: 08/19/21 07:59 Last Admin: 07/22/21 08:04 Dose: 1 units Documented by: Insulin Glargine (Insulin Glargine Solostar 100 Units/Ml 3 Ml Pen) 5 units SC DAILY [facility] Stop: 08/21/21 08:59 Lansoprazole (Lansoprazole 30 Mg Soltab) 30 mg NG DAILY [facility] Stop: 08/19/21 10:14 Last Admin: 07/21/21 07:30 Dose: 30 mg Documented by: Lisinopril (Lisinopril 10 Mg Tab) 10 mg PO DAILY [facility] Stop: 08/21/21 08:59 Last Admin: 07/21/21 08:35 Dose: Not Given Documented by: Metoprolol Succinate (Metoprolol Succ 25mg Ext Rel Tab) 25 mg PO BID [facility] Stop: 08/20/21 10:29 Last Admin: 07/21/21 19:59 Dose: 25 mg Documented by: Miscellaneous (Carbohydrates For Hypoglycemia ) 15 - 30 gm PO UD PRN PRN Reason: Hypoglycemia Protocol Stop: 08/19/21 03:57 Miscellaneous (Icu Electrolyte Replacement Protocol) 1 ea N/A BID@06,18 [facility]; Protocol Stop: 07/27/21 17:59 Last Admin: 07/22/21 06:10 Dose: Not Given Documented by: Miscellaneous Information (Pharmacy Glycemic Mgmt Consult) 1 ea N/A UD PRN; Protocol PRN Reason: Consult Stop: 08/19/21 03:57 Nitroglycerin (Nitroglycerin Sl 0.4 Mg/Tab Tab) 0.4 mg SL UD PRN PRN Reason: Chest Pain Stop: 08/19/21 03:50 Oxybutynin Chloride (Oxybutynin Chloride 5 Mg Tab) 5 mg PO DAILY [facility] Stop: 08/19/21 08:59 Last Admin: 07/21/21 07:30 Dose: 5 mg Documented by: Propofol (Propofol Bolus From Bag) 20 mg IV Q5M PRN PRN Reason: Sedation Stop: 07/23/21 00:56 Last Admin: 07/20/21 02:48 Dose: 20 mg Documented by: Sertraline HCl (Sertraline Hcl 100 Mg Tablet) 100 mg PO QAM [facility] Stop: 08/19/21 08:59 Last Admin: 07/21/21 07:30 Dose: 100 mg Documented by: Ticagrelor (Ticagrelor 90 Mg Tab) 90 mg PO BID [facility] Stop: 08/19/21 08:59 Last Admin: 07/21/21 20:00 Dose: 90 mg Documented by:
[2021-07-22] MEDS: ENOXAPARIN INJ 40 MG/0.4 ML SYR SQ SCH (08:17)
[2021-07-22] MEDS: EZETIMIBE 10 MG TABLET PO SCH (08:17)
[2021-07-22] MEDS: FAMOTIDINE 20 MG TAB PO SCH ×2 (08:18→20:46)
[2021-07-22] MEDS: GABAPENTIN 100 MG CAP PO SCH ×3 (08:18→20:46)
[2021-07-22] MEDS: METOPROLOL SUCC 25MG EXT REL TAB PO SCH (08:19)
[2021-07-22] MEDS: lisinopril 10 MG TAB PO SCH (08:19)
[2021-07-22] MEDS: LANSOPRAZOLE 30 MG SOLTAB NG SCH (08:20)
[2021-07-22] MEDS: TICAGRELOR 90 MG TAB PO SCH ×2 (08:20→20:48)
[2021-07-22] MEDS: OXYBUTYNIN CHLORIDE 5 MG TAB PO SCH (08:20)
[2021-07-22] MEDS: FUROSEMIDE INJ 20 MG/2 ML VIAL IV SCH (08:21)
[2021-07-22] MEDS ORDERED: hydrALAZINE 10 MG TAB PO SCH (09:00)
[2021-07-22] MEDS ORDERED: INSULIN GLARGINE SOLOSTAR 100 UNITS/ML 3 ML PEN SC SCH (09:00)
[2021-07-22] MEDS: ASPIRIN 81 MG CHEW PO SCH (09:12)
[2021-07-22] MEDS: SERTRALINE HCL 100 MG TABLET PO SCH (09:13)
--- NOTE | 2021-07-22 09:44 | Cardiology Progress Note ---
Date of Service July 22, 2021 Assessment & Plan (1) Acute respiratory failure with hypoxia: (2) Flash pulmonary edema: (3) Acute on chronic systolic HF (heart failure): (4) Bifascicular block: Plan: -Pt required endotracheal intubation for what appears to be recurrent flash pulmonary edema episode. Noted recent weight gain , however per bystander description of patient with acute "panic" and acute respiratory compromise along with chest X-ray findings certainly flash pulmonary edema event seems likely. At time of presentation in May,, symptoms rapidly improved with IV diuretic therapy. By the time pt had contact with medical care with this episode , respiratory failure had already occurred. HS Troponin of 18.1 pg/ml at 12:18 am, and 112 pg/ml 8 hours later, so has progressed , but not to the extent that her (low sensitivity) Troponin increased in May (levels of 0.08 ng/ml then the progressed to 6.9 and 11.6 ng/ml over 20 hr span. Echocardiogram with interval further decline in LVEF from 25-30% to 20-25% with apical akinesis and generalized worsening LV function compared to May,. Echo findings raise concern of for lack of viability of distal LAD territory at this time, compared to prior presentation. Patient did present with BP of 204/120 and therefore hypertension related event is a consideration or progression of her CAD. SARS-CoV-2 screen negative. Plan: Patient's pulmonary edema has improved. Patient currently without complaint Suspect mixed etiology of her complaints including LV systolic dysfunction, hypertensive urgency. EKG is not reflective of acute large vessel closure with last cardiac catheterization demonstrating mild to moderate diffuse atherosclerosis with coronary mention to small left anterior descending. Troponins are consistent with demand ischemia currently no indications for acute coronary event Recommendations: Titrate beta-erickson higher given transient LV dysfunction. Increase Toprol to 37.5 mg twice per day. Likely increase lisinopril versus adding Entresto we will hold hydralazine. The patient's weight down 8 kg patient notes at least 8 or 10 pound weight gain prior to presentation. Received IV furosemide this morning we will follow I's and O's and weights Admission and Anticipated Discharge Date Admission Date: July 20, 2021 Subjective Patient was seen and examined, chart, medications, telemetry reviewed. Patient extubated yesterday and doing well today. Breathing has improved. No chest pains or discomfort. Heart rates trending slightly higher no arrhythmias no fevers or cough Review of Systems Review of Systems: All systems reviewed & are unremarkable except as noted in Subjective Physical Exam Physical Exam: Temp Pulse Resp BP Pulse Ox 36.6 C 68 17 137/67 99 07/20/21 03:49 07/20/21 07:10 07/20/21 07:10 07/20/21 06:00 07/20/21 07:10 Constitutional: WD/WN, vitals as above no acute distress ENMT: external ear and nose normal, oropharynx normal Neck: trachea midline, no thyromegaly Respiratory: Auscultation: + diminished lung sounds (decreased BS at the bases ) Cardiovascular: Rate/Rhythm: regular rate and regular rhythm Heart Sounds: no murmur Extremities: + edema (1+ bilateral LE edema ) Gastrointestinal (Abdomen): normal bowel sounds, soft, nontender, no hepatosplenomegaly Results & Data ([facility]) Vital Signs (Past 12 Hours) Vital Signs Temp Pulse Resp BP Pulse Ox 07/22/21 08:00 72 20 129/85 93 07/22/21 07:00 94 H 16 150/78 H 95 07/22/21 06:00 70 23 142/71 H 95 07/22/21 05:00 74 20 136/76 96 07/22/21 04:00 36.8 C 75 20 140/73 96 07/22/21 03:00 74 20 139/66 97 07/22/21 02:00 71 20 133/77 96 07/22/21 01:00 71 21 129/69 96 07/22/21 00:00 37.1 C 74 21 134/64 94 07/21/21 23:00 76 26 H 133/72 95 07/21/21 22:00 75 20 143/68 H 96 Laboratory Results Laboratory Results - last 24 hr 07/21/21 07/21/21 07/21/21 11:35 15:00 19:54 WBC RBC Hgb Hct MCV MCH MCHC RDW Std Deviation RDW Coeff of Ronaldo Plt Count MPV Immature Gran % (Auto) Neut % (Auto) Lymph % (Auto) [place] % (Auto) Eos % (Auto) Baso % (Auto) Neut # (Auto) Lymph # (Auto) [place] # (Auto) Eos # (Auto) Baso # (Auto) Immature Gran # (Auto) Sodium Potassium Chloride Carbon Dioxide Anion Gap BUN Creatinine Est Cr Clr Drug Dosing Est GFR ( Amer) Est GFR (Non-Af Amer) BUN/Creatinine Ratio Glucose POC Glucose 173 H 180 H 283 H Calcium Phosphorus Magnesium 07/21/21 07/22/21 07/22/21 23:46 03:31 05:04 WBC 5.80 RBC 2.98 L Hgb 8.9 L Hct 27.5 L MCV 92.3 MCH 29.9 MCHC 32.4 RDW Std Deviation 48.6 H RDW Coeff of Ronaldo 14.4 Plt Count 202 MPV 9.8 Immature Gran % (Auto) 0.2 Neut % (Auto) 66.1 Lymph % (Auto) 22.4 [place] % (Auto) 8.3 Eos % (Auto) 2.8 Baso % (Auto) 0.2 Neut # (Auto) 3.84 Lymph # (Auto) 1.30 [place] # (Auto) 0.48 Eos # (Auto) 0.16 Baso # (Auto) 0.01 Immature Gran # (Auto) 0.01 Sodium Potassium Chloride Carbon Dioxide Anion Gap BUN Creatinine Est Cr Clr Drug Dosing Est GFR ( Amer) Est GFR (Non-Af Amer) BUN/Creatinine Ratio Glucose POC Glucose 183 H 154 H Calcium Phosphorus Magnesium 07/22/21 07/22/21 05:04 07:27 WBC RBC Hgb Hct MCV MCH MCHC RDW Std Deviation RDW Coeff of Ronaldo Plt Count MPV Immature Gran % (Auto) Neut % (Auto) Lymph % (Auto) [place] % (Auto) Eos % (Auto) Baso % (Auto) Neut # (Auto) Lymph # (Auto) [place] # (Auto) Eos # (Auto) Baso # (Auto) Immature Gran # (Auto) Sodium 139 Potassium 4.0 Chloride 105 Carbon Dioxide 27 Anion Gap 7 BUN 29 H Creatinine 1.14 Est Cr Clr Drug Dosing 52.1 Est GFR ( Amer) 59.3 Est GFR (Non-Af Amer) 51.1 BUN/Creatinine Ratio 25.4 H Glucose 170 H POC Glucose 191 H Calcium 8.5 Phosphorus 4.5 Magnesium 2.1
[2021-07-22] MEDS ORDERED: METOPROLOL SUCC 25MG EXT REL TAB PO ONE (10:15)
--- NOTE | 2021-07-22 10:43 | Pharmacy Report ---
Pharmacy Glycemic Short Note 2 - Date of Service July 22, 2021 - Glycemic Short BSG Results (Last 24 hours): 07/21/21 07/21/21 07/21/21 11:35 15:00 19:54 Glucose POC Glucose 173 H 180 H 283 H 07/21/21 07/22/21 07/22/21 23:46 03:31 05:04 Glucose 170 H POC Glucose 183 H 154 H 07/22/21 07:27 Glucose POC Glucose 191 H OUTPATIENT ANTIDIABETIC REGIMEN: * Metformin 500 mg PO BID * HbA1c: 8.6% (07/20/21) ASSESSMENT: 07/22/21: * Pt extubated yesterday. Diet resumed. * Small dose of Lantus added this morning. Will titrate as indicated. * Carb coverage added to Novolog parameters. * BSGs have been relatively stable on small doses of correctional insulin. 07/20 * Patient 65 yo type II diabetic admitted with significant heart history, intubated for flash pulmonary edema with decrease ejection fraction. Intubated, sedated with propofol. * BSGs elevated this morning, likely d/t stress, have improved with subq novolog, will continue for now * Plan for patient to intubated for 24 hours, will continue with novolog scale and monitor for additional insulin need PLAN FOR INPATIENT GLYCEMIC CONTROL: * Hold outpatient oral diabetes medications * Basal insulin * Lantus 5 units SQ daily * Bolus insulin * NovoLog per scale ACHS or Q6hrs while NPO * Goal Range: Low 140 mg/dL - High 180 mg/dL * Correction Factor: 25 mg/dL/unit * Nutritional / Prandial insulin per carb ratio of 1 unit per 10 grams CHO consumed
--- NOTE | 2021-07-22 20:08 | XRay Report ---
SINGLE VIEW CHEST CLINICAL HISTORY: Fever. FINDINGS: An AP, portable, upright chest radiograph is compared to study performed earlier the same d ay 07/22/2021. The heart is enlarged. The pulmonary vasculature is noncongested. A coronary artery elsie nt is again noted. Airspace opacities are present both lung bases, left greater than right. A small l eft pleural effusion is noted. No pneumothorax is seen. The skeletal structures are osteopenic. The b hunter thorax is grossly intact. Calcific tendinopathy is noted in the right shoulder. IMPRESSION: 1. There are bibasilar opacities, left greater than right with a small left pleural effusion. This co uld represent atelectasis versus an infectious/inflammatory pneumonitis and clinical correlation will be required. 2. Mild cardiomegaly with no radiographic evidence of congestive failure. ACT 112: Negative or not required by law. Electronically signed by: Jorge Crowe M.D. 07/22/2021 8:06 PM
[2021-07-22] MEDS: ATORVASTATIN 40 MG TAB PO SCH (20:44)
[2021-07-22] MEDS: cefTRIAXone SODIUM 1,000 MG in DEXTROSE 5% 50 ML IV SCH (20:45)
[2021-07-22] MEDS ORDERED: METOPROLOL SUCC 25MG EXT REL TAB PO SCH (21:00)
[2021-07-23 04:14] LABS: Appearance Urine Clear (Clear); Bacteria Urine Automated Negative (Negative); Bilirubin Urine Negative (Negative); Blood Urine Negative (Negative); Cast Urine Automated 0 /lpf (0-5); Color Urine Yellow; Glucose Urine UA Negative (Negative); Ketones Urine Negative (Negative); Leukocyte Esterase Urine Trace (Negative); Nitrite Urine Negative (Negative); Protein Urine 1+ (Negative); RBC Urine Automated 0-4 /hpf (0-4); Specific Gravity Urine 1.007 (1.000-1.030); Urobilinogen Urine Negative (Negative)
--- NOTE | 2021-07-23 06:16 | Electrocardiogram Report ---
Test Reason : Blood Pressure : / mmHG Vent. Rate : 060 BPM Atrial Rate : 060 BPM P-R Int : 110 ms QRS Dur : 132 ms QT Int : 508 ms P-R-T Axes : 025 -68 -68 degrees QTc Int : 508 ms Sinus rhythm with short FL Right bundle branch block Left anterior fascicular block Bifascicular block Septal infarct (cited on or before 20-JUL-2021) T wave abnormality, consider inferolateral ischemia Abnormal ECG When compared with ECG of 20-JUL-2021 10:55, No significant change Confirmed by Howie Vaughan ([id number]) on 07/23/2021 6:16:07 AM Referred By: REFERRED SELF Confirmed By:Howie Vaughan
[2021-07-23] MEDS ORDERED: SUCCINYLCHOLINE CHLORIDE 20 MG/ML 10 ML VIAL IV ONE (06:36)
[2021-07-23] MEDS ORDERED: ETOMIDATE 2 MG/ML 20 ML VIAL IV ONE (06:36)
[2021-07-23 07:49] LABS: Basophils # (auto) 0.01 K/uL (0-0.2); Basophils % (auto) 0.2 %; Eosinophils # (auto) 0.15 K/uL (0-0.5); Eosinophils % (auto) 2.6 %; Hematocrit (blood only) 27.4 % (37-47); Immature Granulocytes # (auto) 0.01 K/uL (0.00-0.02); Immature Granulocytes % (auto) 0.2 %; Lymphocytes # (auto) 1.07 K/uL (1.2-3.4); Lymphocytes % (auto) 18.8 %; Mean Corpuscular Hemoglobin 30.1 pg (25-34); Mean Corpuscular Hgb Conc 32.8 g/dL (32-36); Mean Corpuscular Volume 91.6 fL (80-100); Monocytes % (auto) 8.8 %; Neutrophils # (auto) 3.96 K/uL (1.4-6.5); Neutrophils % (auto) 69.4 %; Platelet Count 219 K/uL (130-400); RDW Coefficient of Variation 14.3 % (11.5-14.5); RDW Standard Deviation 47.7 fL (36.4-46.3); Red Blood Count 2.99 M/uL (4.2-5.4)
[2021-07-23 08:20] LABS: BUN Creatinine Ratio 27.4 (10-20); Calcium 8.7 mg/dl (8.5-10.1); Creatinine Clr Calc Pharmacy 62.1 ml/min; Est GFR (African American) 73.9 ml/min; Est GFR (Non-African American) 63.7 ml/min; Magnesium 1.9 mg/dl (1.7-2.4); Phosphorus 3.8 mg/dl (2.5-4.9); Potassium 4.2 mmol/L (3.5-5.1)
--- NOTE | 2021-07-23 08:55 | Hospitalist Progress Note ---
Date of Service July 23, 2021 Assessment & Plan (1) Flash pulmonary edema: (2) Acute respiratory failure with hypoxia: (3) Acute on chronic systolic HF (heart failure): Plan: This is a 65-year-old female who presents with acute congestive heart failure, flash pulm. edema, elev. troponin. 1. Acute respiratory failure mostly secondary to acute systolic and diastolic congestive heart failure, ejection fraction was 25% to 30%, last echo in May of 2021. Received IV Lasix in the ER with about a liter of urine out as per ER. Continued w/ IV Lasix 40 b.i.d. The patient was intubated in the ER. Now extubated (07/21) in ICU care. Critical care consulted. Echocardiogram -LV is normal in size. There is a diffuse hypokinesis to akinesis with focal akinesis of the anterior septum and apex. There is mild concentric LVH. LV systolic function is severely reduced. LVEF 20 to 25%. LA is mildly dilated. Grade 1 diastolic dysfunction. There is a moderate sized left pleural effusion. There is a small right pleural effusion. Compared to the previous study performed in May 2021 there has been further decline in the LVEF and new pleural effusions are present. Dilated inferior vena cava with reduced collapsibility with sniff indicates an elevated right atrial pressure of 15 mmHg. Doppler findings do not suggest pulmonary hypertension. There is no significant valvular pathology. Cardiology consulted for further recommendations. Cont. w/ diuresis, monitor I&Os Increase toprol XL to 50 mg bid Increase lisinopril to 20 mg daily resume home torsemide consider spironolactone add oral nitrate 2. Possible non-ST elevation myocardial infarction, possibly secondary to demand ischemia as high sensitivity troponin is elevated.Patient did present with BP of 204/120 and therefore hypertension related event is a consideration or progression of her CAD. Cardiology following. 3. CAD, s/p stent to LAD in February 2020, in last May of 2021 again had a LAD drug-eluting stent. On aspirin, Brilinta, beta erickson, statin, and ezetimibe, which are continued. Cardiology following Fever spiked fever on night of 07/20 and 07/22 Clinically patient is actually improving UA - negative, Procal - negative, WBC wnl., chest x-ray - bibasilar opacities, left greater than right with a small left pleural effusion. This could represent atelectasis versus an infectiou s/inflammatory pneumonitis and clinical correlation will be required. blood culture - pending empiric Rocephin, continue with incentive spirometry 4. Diabetes: Hold metformin. Placed on insulin sliding scale and Lantus and monitor the blood sugar and follow the HbA1c levels. 5. History of hypertension: Continue metoprolol, lisinopril. Will monitor the blood pressure. 6. History of obstructive sleep apnea. Needs followup with sleep study. Will do nocturnal pulse ox when the patient is stable in the hospital. 7. Female stress incontinence: Continue oxybutynin. 8. Hyperlipidemia: On statin. 9. Depression: On Zoloft. 10. Gastroesophageal reflux disease: On Pepcid. DVT prophylaxis: Placed on Lovenox. DISPOSITION: PCU. CODE: full code. Admission and Anticipated Discharge Date Admission Date: July 20, 2021 Subjective Patient seen in follow-up of flash pulmonary edema, acute systolic CHF, elevated troponin Patient was extubated, currently feeling much better She is alert oriented, answering questions appropriately She is speaking in full sentences, tolerating diet Denies any chest pain, palpitations, increased shortness of breath, abdominal pain, nausea vomiting Spiked fever 38C 07/20 night, Then again evening of 07/22 37.9C 5 procal negative, UA negative, repeat CXR - bibasilar opacities, left greater than right with a small left pleural effusion. This could represent atelectasis versus an infectious/inflammatory pneumonitis and clinical correlation will be required. Review of Systems Review of Systems: All systems reviewed & are unremarkable except as noted in Subjective Physical Exam Physical Exam: GENERAL: WD/WN F , now extubated, in NAD HEENT: NC/AT. EOMI. Pupils equal, round and reactive to light. NECK: No JVD. No neck masses. CARDIOVASCULAR: S1 and S2 heard. Regular rate and rhythm. No murmur, no gallop. RESPIRATORY SYSTEM: Normal AP diameter. No accessory muscle use. + bilateral crackles . No wheezing. ABDOMEN: Soft, bowel sounds present, nontender, no distention. NEURO:Alert oriented, answering questions appropriately, no facial asymmetry, speech fluent, moves extremities EXTREMITIES: Mild pedal edema present, no erythema seen. Results & Data Results & Data ([facility]) Vital Signs (Past 12 Hours) Vital Signs Temp Pulse Pulse Pulse Resp BP Pulse Ox 07/23/21 07:22 37.3 C 75 16 153/85 H 95 07/23/21 03:03 37.4 C 92 H 15 129/75 93 07/23/21 00:00 99 H 07/22/21 23:34 37.6 C H 76 19 139/67 91 Laboratory Results 07/23/21 07/23/21 07/23/21 Range/Units 07:22 07:22 07:17 WBC 5.70 (4.8-10.8) K/uL RBC 2.99 L (4.2-5.4) M/uL Hgb 9.0 L (12.0-16.0) g/dL Hct 27.4 L (37-47) % MCV 91.6 (80-100) fL MCH 30.1 (25-34) pg MCHC 32.8 (32-36) g/dL RDW Std Deviation 47.7 H (36.4-46.3) fL RDW Coeff of Ronaldo 14.3 (11.5-14.5) % Plt Count 219 (130-400) K/uL MPV 10.0 (7.4-10.4) fL Immature Gran % (Auto) 0.2 % Neut % (Auto) 69.4 % Lymph % (Auto) 18.8 % [place] % (Auto) 8.8 % Eos % (Auto) 2.6 % Baso % (Auto) 0.2 % Neut # (Auto) 3.96 (1.4-6.5) K/uL Lymph # (Auto) 1.07 L (1.2-3.4) K/uL [place] # (Auto) 0.50 (0.11-0.59) K/uL Eos # (Auto) 0.15 (0-0.5) K/uL Baso # (Auto) 0.01 (0-0.2) K/uL Immature Gran # (Auto) 0.01 (0.00-0.02) K/uL Sodium 138 (136-145) mmol/L Potassium 4.2 (3.5-5.1) mmol/L Chloride 104 (98-107) mmol/L Carbon Dioxide 28 (21-32) mmol/L Anion Gap 6 (3-11) BUN 26 H (6-23) mg/dl Creatinine 0.95 (0.6-1.2) mg/dl Est Cr Clr Drug Dosing 62.1 ml/min Est GFR ( Amer) 73.9 ml/min Est GFR (Non-Af Amer) 63.7 ml/min BUN/Creatinine Ratio 27.4 H (10-20) Glucose 166 H (70-99(Fasting)) mg/dl POC Glucose 200 H (70-99) mg/dl Calcium 8.7 (8.5-10.1) mg/dl Phosphorus 3.8 (2.5-4.9) mg/dl Magnesium 1.9 (1.7-2.4) mg/dl Procalcitonin (0-0.5) ng/ml Urine Color Urine Appearance (Clear) Urine pH (4.5-7.5) Ur Specific [place] (1.000-1.030) Urine Protein (Negative) Urine Glucose (UA) (Negative) Urine Ketones (Negative) Urine Blood (Negative) Urine Nitrite (Negative) Urine Bilirubin (Negative) Urine Urobilinogen (Negative) Ur Leukocyte Esterase (Negative) Urine WBC (Auto) (0-5) /hpf Urine RBC (Auto) (0-4) /hpf U Hyaline Cast (Auto) (0-5) /lpf U Epithel Cells (Auto) (0-5) /lpf Urine Bacteria (Auto) (Negative) 07/23/21 07/22/21 07/22/21 Range/Units 03:00 20:37 20:14 WBC (4.8-10.8) K/uL RBC (4.2-5.4) M/uL Hgb (12.0-16.0) g/dL Hct (37-47) % MCV (80-100) fL MCH (25-34) pg MCHC (32-36) g/dL RDW Std Deviation (36.4-46.3) fL RDW Coeff of Ronaldo (11.5-14.5) % Plt Count (130-400) K/uL MPV (7.4-10.4) fL Immature Gran % (Auto) % Neut % (Auto) % Lymph % (Auto) % [place] % (Auto) % Eos % (Auto) % Baso % (Auto) % Neut # (Auto) (1.4-6.5) K/uL Lymph # (Auto) (1.2-3.4) K/uL [place] # (Auto) (0.11-0.59) K/uL Eos # (Auto) (0-0.5) K/uL Baso # (Auto) (0-0.2) K/uL Immature Gran # (Auto) (0.00-0.02) K/uL Sodium (136-145) mmol/L Potassium (3.5-5.1) mmol/L Chloride (98-107) mmol/L Carbon Dioxide (21-32) mmol/L Anion Gap (3-11) BUN (6-23) mg/dl Creatinine (0.6-1.2) mg/dl Est Cr Clr Drug Dosing ml/min Est GFR ( Amer) ml/min Est GFR (Non-Af Amer) ml/min BUN/Creatinine Ratio (10-20) Glucose (70-99(Fasting)) mg/dl POC Glucose 179 H 189 H (70-99) mg/dl Calcium (8.5-10.1) mg/dl Phosphorus (2.5-4.9) mg/dl Magnesium (1.7-2.4) mg/dl Procalcitonin (0-0.5) ng/ml Urine Color Yellow Urine Appearance Clear (Clear) Urine pH 6.0 (4.5-7.5) Ur Specific [place] 1.007 (1.000-1.030) Urine Protein 1+ H (Negative) Urine Glucose (UA) Negative (Negative) Urine Ketones Negative (Negative) Urine Blood Negative (Negative) Urine Nitrite Negative (Negative) Urine Bilirubin Negative (Negative) Urine Urobilinogen Negative (Negative) Ur Leukocyte Esterase Trace H (Negative) Urine WBC (Auto) 1-5 (0-5) /hpf Urine RBC (Auto) 0-4 (0-4) /hpf U Hyaline Cast (Auto) 0 (0-5) /lpf U Epithel Cells (Auto) 10-20 H (0-5) /lpf Urine Bacteria (Auto) Negative (Negative) 07/22/21 07/22/21 07/22/21 Range/Units 19:54 16:22 11:32 WBC (4.8-10.8) K/uL RBC (4.2-5.4) M/uL Hgb (12.0-16.0) g/dL Hct (37-47) % MCV (80-100) fL MCH (25-34) pg MCHC (32-36) g/dL RDW Std Deviation (36.4-46.3) fL RDW Coeff of Ronaldo (11.5-14.5) % Plt Count (130-400) K/uL MPV (7.4-10.4) fL Immature Gran % (Auto) % Neut % (Auto) % Lymph % (Auto) % [place] % (Auto) % Eos % (Auto) % Baso % (Auto) % Neut # (Auto) (1.4-6.5) K/uL Lymph # (Auto) (1.2-3.4) K/uL [place] # (Auto) (0.11-0.59) K/uL Eos # (Auto) (0-0.5) K/uL Baso # (Auto) (0-0.2) K/uL Immature Gran # (Auto) (0.00-0.02) K/uL Sodium (136-145) mmol/L Potassium (3.5-5.1) mmol/L Chloride (98-107) mmol/L Carbon Dioxide (21-32) mmol/L Anion Gap (3-11) BUN (6-23) mg/dl Creatinine (0.6-1.2) mg/dl Est Cr Clr Drug Dosing ml/min Est GFR ( Amer) ml/min Est GFR (Non-Af Amer) ml/min BUN/Creatinine Ratio (10-20) Glucose (70-99(Fasting)) mg/dl POC Glucose 182 H 203 H (70-99) mg/dl Calcium (8.5-10.1) mg/dl Phosphorus (2.5-4.9) mg/dl Magnesium (1.7-2.4) mg/dl Procalcitonin 0.10 (0-0.5) ng/ml Urine Color Urine Appearance (Clear) Urine pH (4.5-7.5) Ur Specific [place] (1.000-1.030) Urine Protein (Negative) Urine Glucose (UA) (Negative) Urine Ketones (Negative) Urine Blood (Negative) Urine Nitrite (Negative) Urine Bilirubin (Negative) Urine Urobilinogen (Negative) Ur Leukocyte Esterase (Negative) Urine WBC (Auto) (0-5) /hpf Urine RBC (Auto) (0-4) /hpf U Hyaline Cast (Auto) (0-5) /lpf U Epithel Cells (Auto) (0-5) /lpf Urine Bacteria (Auto) (Negative) Medications Administered Current Inpatient Medications Aspirin (Aspirin 81 Mg Chew) 81 mg PO QAM GLYNN Stop: 08/19/21 08:59 Last Admin: 07/23/21 11:42 Dose: 81 mg Documented by: Atorvastatin Calcium (Atorvastatin 40 Mg Tab) 80 mg PO HS GLYNN Stop: 08/19/21 20:59 Last Admin: 07/22/21 20:44 Dose: 80 mg Documented by: Dextrose (Dextrose 50% 50 Ml Syringe) 25 - 50 ml IV UD PRN; Protocol PRN Reason: Hypoglycemia Protocol Stop: 08/19/21 03:57 Ezetimibe (Ezetimibe 10 Mg Tablet) 10 mg PO DAILY GLYNN Stop: 08/19/21 08:59 Last Admin: 07/23/21 11:48 Dose: 10 mg Documented by: Enoxaparin Sodium (Enoxaparin Inj 40 Mg/0.4 Ml Syr) 40 mg SQ Q24H GLYNN Stop: 08/19/21 08:59 Last Admin: 07/23/21 11:42 Dose: 40 mg Documented by: Famotidine (Famotidine 20 Mg Tab) 20 mg PO BID GLYNN Stop: 08/19/21 08:59 Last Admin: 07/23/21 11:44 Dose: 20 mg Documented by: Gabapentin (Gabapentin 100 Mg Cap) 200 mg PO TID GLYNN Stop: 08/20/21 14:29 Last Admin: 07/23/21 13:28 Dose: 200 mg Documented by: Glucagon (Glucagon For Inj 1 Mg Vial) 1 mg SQ UD PRN; Protocol PRN Reason: Hypoglycemia Protocol Stop: 08/19/21 03:57 Glucose (Glucose 40% Gel 15 Gm Tube) 15 - 30 gm PO UD PRN; Protocol PRN Reason: Hypoglycemia Protocol Stop: 08/19/21 03:57 Glucose (Glucose 10 Tabs/Tube) 4 - 8 tabs PO UD PRN; Protocol PRN Reason: Hypoglycemia Protocol Stop: 08/19/21 04:14 Hydralazine HCl (Hydralazine 10 Mg Tab) 10 mg PO TID GLYNN Stop: 08/21/21 08:59 Last Admin: 07/22/21 09:12 Dose: 10 mg Documented by: Ceftriaxone Sodium 1,000 mg/ (Dextrose) 60 mls @ 100 mls/hr IV Q24H [facility]; Protocol Stop: 07/24/21 21:59 Last Infusion: 07/22/21 21:33 Dose: Infused Documented by: Insulin Aspart (Insulin Aspart Per Unit) 0 units SC ACHS [facility] Stop: 08/21/21 11:29 Last Admin: 07/23/21 16:56 Dose: 3 units Documented by: Insulin Glargine (Insulin Glargine Solostar 100 Units/Ml 3 Ml Pen) 10 units SC DAILY [facility] Stop: 08/22/21 08:59 Last Admin: 07/23/21 11:51 Dose: 10 units Documented by: Lansoprazole (Lansoprazole 30 Mg Soltab) 30 mg NG DAILY [facility] Stop: 08/19/21 10:14 Last Admin: 07/23/21 11:47 Dose: 30 mg Documented by: Lisinopril (Lisinopril 20 Mg Tab) 20 mg PO DAILY [facility] Stop: 08/23/21 08:59 Metoprolol Succinate (Metoprolol Succ 50mg Ext Rel Tab) 50 mg PO BID [facility] Stop: 08/22/21 08:59 Last Admin: 07/23/21 11:47 Dose: 50 mg Documented by: Miscellaneous (Carbohydrates For Hypoglycemia ) 15 - 30 gm PO UD PRN PRN Reason: Hypoglycemia Protocol Stop: 08/19/21 03:57 Miscellaneous Information (Pharmacy Glycemic Mgmt Consult) 1 ea N/A UD PRN; Protocol PRN Reason: Consult Stop: 08/19/21 03:57 Nitroglycerin (Nitroglycerin Sl 0.4 Mg/Tab Tab) 0.4 mg SL UD PRN PRN Reason: Chest Pain Stop: 08/19/21 03:50 Oxybutynin Chloride (Oxybutynin Chloride 5 Mg Tab) 5 mg PO DAILY [facility] Stop: 08/19/21 08:59 Last Admin: 07/23/21 11:46 Dose: 5 mg Documented by: Sertraline HCl (Sertraline Hcl 100 Mg Tablet) 100 mg PO QAM [facility] Stop: 08/19/21 08:59 Last Admin: 07/23/21 11:46 Dose: 100 mg Documented by: Ticagrelor (Ticagrelor 90 Mg Tab) 90 mg PO BID [facility] Stop: 08/19/21 08:59 Last Admin: 07/23/21 11:46 Dose: 90 mg Documented by: Torsemide (Torsemide 10 Mg Tab) 10 mg PO QAM [facility] Stop: 08/23/21 08:59
--- NOTE | 2021-07-23 10:05 | Cardiology Progress Note ---
Date of Service July 23, 2021 Assessment & Plan (1) Acute respiratory failure with hypoxia: (2) Flash pulmonary edema: (3) Acute on chronic systolic HF (heart failure): (4) Bifascicular block: Plan: -Pt required endotracheal intubation for what appears to be recurrent flash pulmonary edema episode. Noted recent weight gain , however per bystander description of patient with acute "panic" and acute respiratory compromise along with chest X-ray findings certainly flash pulmonary edema event seems likely. At time of presentation in May,, symptoms rapidly improved with IV diuretic therapy. By the time pt had contact with medical care with this episode , respiratory failure had already occurred. HS Troponin of 18.1 pg/ml at 12:18 am, and 112 pg/ml 8 hours later, so has progressed , but not to the extent that her (low sensitivity) Troponin increased in May (levels of 0.08 ng/ml then the progressed to 6.9 and 11.6 ng/ml over 20 hr span. Echocardiogram with interval further decline in LVEF from 25-30% to 20-25% with apical akinesis and generalized worsening LV function compared to May,. Echo findings raise concern of for lack of viability of distal LAD territory at this time, compared to prior presentation. Patient did present with BP of 204/120 and therefore hypertension related event is a consideration or progression of her CAD. SARS-CoV-2 screen negative. Plan: Patient's pulmonary edema has improved. Patient currently without complaint Suspect mixed etiology of her complaints including LV systolic dysfunction, hypertensive urgency. EKG is not reflective of acute large vessel closure with last cardiac catheterization demonstrating mild to moderate diffuse atherosclerosis with coronary intervention to small left anterior descending. Troponins are consistent with demand ischemia currently no indications for acute coronary event Recommendations: Continue to optimize medical therapies increase Toprol-XL to 50 mg twice per day increase lisinopril to 20 mg/day Add oral nitrate discontinue IV furosemide after dose today and resu me home dosing of torsemide Consider spironolactone follow closely for possible progressive infectious process post intubation/mechanical vent Admission and Anticipated Discharge Date Admission Date: July 20, 2021 Subjective Patient was seen and examined, chart, medications, telemetry reviewed. Patient feeling improved less dyspneic but now on intermittent low-grade temperature, mildly productive cough. No chest pains, no edema Review of Systems Review of Systems: All systems reviewed & are unremarkable except as noted in Subjective Physical Exam Physical Exam: Temp Pulse Resp BP Pulse Ox 36.6 C 68 17 137/67 99 07/20/21 03:49 07/20/21 07:10 07/20/21 07:10 07/20/21 06:00 07/20/21 07:10 Constitutional: WD/WN, vitals as above no acute distress ENMT: external ear and nose normal, oropharynx normal Neck: trachea midline, no thyromegaly Respiratory: Auscultation: + diminished lung sounds (Few crackles at the left base) Cardiovascular: Rate/Rhythm: regular rate and regular rhythm Heart Sounds: no murmur Extremities: + edema (1+ bilateral LE edema ) Gastrointestinal (Abdomen): normal bowel sounds, soft, nontender, no he patosplenomegaly Results & Data ([facility]) Vital Signs (Past 12 Hours) Vital Signs Temp Pulse Pulse Pulse Resp BP Pulse Ox 07/23/21 07:22 37.3 C 75 16 153/85 H 95 07/23/21 03:03 37.4 C 92 H 15 129/75 93 07/23/21 00:00 99 H 07/22/21 23:34 37.6 C H 76 19 139/67 91 Laboratory Results Laboratory Results - last 24 hr 07/22/21 07/22/21 07/22/21 11:32 16:22 19:54 WBC RBC Hgb Hct MCV MCH MCHC RDW Std Deviation RDW Coeff of Ronaldo Plt Count MPV Immature Gran % (Auto) Neut % (Auto) Lymph % (Auto) [place] % (Auto) Eos % (Auto) Baso % (Auto) Neut # (Auto) Lymph # (Auto) [place] # (Auto) Eos # (Auto) Baso # (Auto) Immature Gran # (Auto) Sodium Potassium Chloride Carbon Dioxide Anion Gap BUN Creatinine Est Cr Clr Drug Dosing Est GFR ( Amer) Est GFR (Non-Af Amer) BUN/Creatinine Ratio Glucose POC Glucose 203 H 182 H Calcium Phosphorus Magnesium Procalcitonin 0.10 Urine Color Urine Appearance Urine pH Ur Specific Maurice Urine Protein Urine Glucose (UA) Urine Ketones Urine Blood Urine Nitrite Urine Bilirubin Urine Urobilinogen Ur Leukocyte Esterase Urine WBC (Auto) Urine RBC (Auto) U Hyaline Cast (Auto) U Epithel Cells (Auto) Urine Bacteria (Auto) 07/22/21 07/22/21 07/23/21 20:14 20:37 03:00 WBC RBC Hgb Hct MCV MCH MCHC RDW Std Deviation RDW Coeff of Ronaldo Plt Count MPV Immature Gran % (Auto) Neut % (Auto) Lymph % (Auto) [place] % (Auto) Eos % (Auto) Baso % (Auto) Neut # (Auto) Lymph # (Auto) [place] # (Auto) Eos # (Auto) Baso # (Auto) Immature Gran # (Auto) Sodium Potassium Chloride Carbon Dioxide Anion Gap BUN Creatinine Est Cr Clr Drug Dosing Est GFR ( Amer) Est GFR (Non-Af Amer) BUN/Creatinine Ratio Glucose POC Glucose 189 H 179 H Calcium Phosphorus Magnesium Procalcitonin Urine Color Yellow Urine Appearance Clear Urine pH 6.0 Ur Specific Maurice 1.007 Urine Protein 1+ H Urine Glucose (UA) Negative Urine Ketones Negative Urine Blood Negative Urine Nitrite Negative Urine Bilirubin Negative Urine Urobilinogen Negative Ur Leukocyte Esterase Trace H Urine WBC (Auto) 1-5 Urine RBC (Auto) 0-4 U Hyaline Cast (Auto) 0 U Epithel Cells (Auto) 10-20 H Urine Bacteria (Auto) Negative 07/23/21 07/23/21 07/23/21 07:17 07:22 07:22 WBC 5.70 RBC 2.99 L Hgb 9.0 L Hct 27.4 L MCV 91.6 MCH 30.1 MCHC 32.8 RDW Std Deviation 47.7 H RDW Coeff of Ronaldo 14.3 Plt Count 219 MPV 10.0 Immature Gran % (Auto) 0.2 Neut % (Auto) 69.4 Lymph % (Auto) 18.8 [place] % (Auto) 8.8 Eos % (Auto) 2.6 Baso % (Auto) 0.2 Neut # (Auto) 3.96 Lymph # (Auto) 1.07 L [place] # (Auto) 0.50 Eos # (Auto) 0.15 Baso # (Auto) 0.01 Immature Gran # (Auto) 0.01 Sodium 138 Potassium 4.2 Chloride 104 Carbon Dioxide 28 Anion Gap 6 BUN 26 H Creatinine 0.95 Est Cr Clr Drug Dosing 62.1 Est GFR ( Amer) 73.9 Est GFR (Non-Af Amer) 63.7 BUN/Creatinine Ratio 27.4 H Glucose 166 H POC Glucose 200 H Calcium 8.7 Phosphorus 3.8 Magnesium 1.9 Procalcitonin Urine Color Urine Appearance Urine pH Ur Specific Maurice Urine Protein Urine Glucose (UA) Urine Ketones Urine Blood Urine Nitrite Urine Bilirubin Urine Urobilinogen Ur Leukocyte Esterase Urine WBC (Auto) Urine RBC (Auto) U Hyaline Cast (Auto) U Epithel Cells (Auto) Urine Bacteria (Auto)
[2021-07-23] MEDS ORDERED: lisinopril 10 MG TAB PO ONE (10:17)
[2021-07-23] MEDS ORDERED: ISOSORBIDE MONO EXTENDED REL 30 MG TABCR PO ONE (10:18)
[2021-07-23] MEDS: ENOXAPARIN INJ 40 MG/0.4 ML SYR SQ SCH (11:42)
[2021-07-23] MEDS: ASPIRIN 81 MG CHEW PO SCH (11:42)
[2021-07-23] MEDS: FAMOTIDINE 20 MG TAB PO SCH ×2 (11:44→20:51)
[2021-07-23] MEDS: TICAGRELOR 90 MG TAB PO SCH ×2 (11:46→21:08)
[2021-07-23] MEDS: SERTRALINE HCL 100 MG TABLET PO SCH (11:46)
[2021-07-23] MEDS: OXYBUTYNIN CHLORIDE 5 MG TAB PO SCH (11:46)
[2021-07-23] MEDS: LANSOPRAZOLE 30 MG SOLTAB NG SCH (11:47)
[2021-07-23] MEDS: METOPROLOL SUCC 50MG EXT REL TAB PO SCH ×2 (11:47→20:50)
[2021-07-23] MEDS: EZETIMIBE 10 MG TABLET PO SCH (11:48)
[2021-07-23] MEDS: GABAPENTIN 100 MG CAP PO SCH ×3 (11:48→20:51)
[2021-07-23] MEDS: INSULIN GLARGINE SOLOSTAR 100 UNITS/ML 3 ML PEN SC SCH (11:51)
[2021-07-23] MEDS: INSULIN ASPART PER UNIT SC SCH ×4 (11:54→20:59)
[2021-07-23] MEDS: lisinopril 10 MG TAB PO SCH (12:06)
[2021-07-23] MEDS: FUROSEMIDE INJ 20 MG/2 ML VIAL IV SCH (12:06)
[2021-07-23] MEDS: ATORVASTATIN 40 MG TAB PO SCH (20:52)
[2021-07-23] MEDS: cefTRIAXone SODIUM 1,000 MG in DEXTROSE 5% 50 ML IV SCH (21:11)
[2021-07-24 07:47] LABS: Hematocrit (blood only) 28.4 % (37-47); Hemoglobin 9.1 g/dL (12.0-16.0); Mean Corpuscular Hemoglobin 29.7 pg (25-34); Mean Corpuscular Volume 92.8 fL (80-100); Mean Platelet Volume 10.1 fL (7.4-10.4); Platelet Count 246 K/uL (130-400); RDW Coefficient of Variation 14.1 % (11.5-14.5); RDW Standard Deviation 47.5 fL (36.4-46.3); Red Blood Count 3.06 M/uL (4.2-5.4); White Blood Count 5.12 K/uL (4.8-10.8)
[2021-07-24 08:53] LABS: BUN Creatinine Ratio 29.5 (10-20); Calcium 8.8 mg/dl (8.5-10.1); Creatinine Clr Calc Pharmacy 52.5 ml/min; Est GFR (African American) 60.5 ml/min; Est GFR (Non-African American) 52.2 ml/min; Phosphorus 3.9 mg/dl (2.5-4.9); Potassium 4.3 mmol/L (3.5-5.1)
--- NOTE | 2021-07-24 09:34 | Cardiology Progress Note ---
Date of Service July 24, 2021 Assessment & Plan (1) Acute respiratory failure with hypoxia: (2) Flash pulmonary edema: (3) Acute on chronic systolic HF (heart failure): (4) Bifascicular block: Plan: -Pt required endotracheal intubation for what appears to be recurrent flash pulmonary edema episode. Noted recent weight gain , however per bystander description of patient with acute "panic" and acute respiratory compromise along with chest X-ray findings certainly flash pulmonary edema event seems likely. At time of presentation in May,, symptoms rapidly improved with IV diuretic therapy. By the time pt had contact with medical care with this episode , respiratory failure had already occurred. HS Troponin of 18.1 pg/ml at 12:18 am, and 112 pg/ml 8 hours later, so has progressed , but not to the extent that her (low sensitivity) Troponin increased in May (levels of 0.08 ng/ml then the progressed to 6.9 and 11.6 ng/ml over 20 hr span. Echocardiogram with interval further decline in LVEF from 25-30% to 20-25% with apical akinesis and generalized worsening LV function compared to May,. Echo findings raise concern of for lack of viability of distal LAD territory at this time, compared to prior presentation. Patient did present with BP of 204/120 and therefore hypertension related event is a consideration or progression of her CAD. SARS-CoV-2 screen negative. Plan: Patient's pulmonary edema has improved. Patient currently without complaint Suspect mixed etiology of her complaints including LV systolic dysfunction, hypertensive urgency. EKG is not reflective of acute large vessel closure with last cardiac catheterization demonstrating mild to moderate diffuse atherosclerosis with coronary intervention to small left anterior descending. Troponins are consistent with demand ischemia currently no indications for acute coronary event Recommendations: Patient on optimal medical regimen at this time. Heart rate and blood pressure well controlled. Outpatient diuretic resumed without signs of volume overload. Will consider addition of spironolactone post discharge If fluid retention becomes an issue again may need to reduce gabapentin dosing follow-up cardiology 1 to 2-week Admission and Anticipated Discharge Date Admission Date: July 20, 2021 Subjective Patient seen and examined, chart, medications, telemetry reviewed. Patient feels improved this morning no dyspnea or chest pain. Was able to ambulate in the hallway last evening using walker without difficulty. Minimal cough without purulent production. No fevers or chills. Blood pressure and heart rate control Review of Systems Review of Systems: All systems reviewed & are unremarkable except as noted in Subjective Physical Exam Physical Exam: Temp Pulse Resp BP Pulse Ox 36.6 C 68 17 137/67 99 07/20/21 03:49 07/20/21 07:10 07/20/21 07:10 07/20/21 06:00 07/20/21 07:10 Constitutional: WD/WN, vitals as above no acute distress ENMT: external ear and nose normal, oropharynx normal Neck: trachea midline, no thyromegaly Respiratory: Auscultation: lungs clear to auscultation bilaterally and + diminished lung sounds Cardiovascular: Rate/Rhythm: regular rate and regular rhythm Heart Sounds: no murmur Extremities: no edema Gastrointestinal (Abdomen): normal bowel sounds, soft, nontender, no hepatosplenomegaly Results & Data ([facility]) Vital Signs (Past 12 Hours) Vital Signs Temp Pulse Pulse Pulse Resp BP Pulse Ox 07/24/21 07:28 36.5 C 70 15 127/71 97 07/24/21 03:00 37.4 C 70 14 135/67 94 07/23/21 23:05 80 07/23/21 23:00 37.4 C 80 13 113/66 95 Laboratory Results Laboratory Results - last 24 hr 07/23/21 07/23/21 07/23/21 10:18 11:43 16:29 WBC RBC Hgb Hct MCV MCH MCHC RDW Std Deviation RDW Coeff of Ronaldo Plt Count MPV Sodium Potassium Chloride Carbon Dioxide Anion Gap BUN Creatinine Est Cr Clr Drug Dosing Est GFR ( Amer) Est GFR (Non-Af Amer) BUN/Creatinine Ratio Glucose POC Glucose 252 H 226 H 101 H Calcium Phosphorus Magnesium 07/23/21 07/24/21 07/24/21 20:24 07:18 07:18 WBC 5.12 RBC 3.06 L Hgb 9.1 L Hct 28.4 L MCV 92.8 MCH 29.7 MCHC 32.0 RDW Std Deviation 47.5 H RDW Coeff of Ronaldo 14.1 Plt Count 246 MPV 10.1 Sodium 138 Potassium 4.3 Chloride 103 Carbon Dioxide 29 Anion Gap 6 BUN 33 H Creatinine 1.12 Est Cr Clr Drug Dosing 52.5 Est GFR ( Amer) 60.5 Est GFR (Non-Af Amer) 52.2 BUN/Creatinine Ratio 29.5 H Glucose 154 H POC Glucose 146 H Calcium 8.8 Phosphorus 3.9 Magnesium 2.0 07/24/21 07:25 WBC RBC Hgb Hct MCV MCH MCHC RDW Std Deviation RDW Coeff of Ronaldo Plt Count MPV Sodium Potassium Chloride Carbon Dioxide Anion Gap BUN Creatinine Est Cr Clr Drug Dosing Est GFR ( Amer) Est GFR (Non-Af Amer) BUN/Creatinine Ratio Glucose POC Glucose 174 H Calcium Phosphorus Magnesium
[2021-07-24] MEDS: EZETIMIBE 10 MG TABLET PO SCH (09:35)
[2021-07-24] MEDS: TICAGRELOR 90 MG TAB PO SCH ×2 (09:35→21:16)
[2021-07-24] MEDS: INSULIN ASPART PER UNIT SC SCH ×4 (09:35→21:20)
[2021-07-24] MEDS: TORSEMIDE 10 MG TAB PO SCH (09:36)
[2021-07-24] MEDS: METOPROLOL SUCC 50MG EXT REL TAB PO SCH ×2 (09:36→21:16)
[2021-07-24] MEDS: lisinopril 20 MG TAB PO SCH (09:36)
[2021-07-24] MEDS: OXYBUTYNIN CHLORIDE 5 MG TAB PO SCH (09:36)
[2021-07-24] MEDS: SERTRALINE HCL 100 MG TABLET PO SCH (09:36)
[2021-07-24] MEDS: LANSOPRAZOLE 30 MG SOLTAB NG SCH (09:36)
[2021-07-24] MEDS: ENOXAPARIN INJ 40 MG/0.4 ML SYR SQ SCH (09:37)
[2021-07-24] MEDS: GABAPENTIN 100 MG CAP PO SCH ×3 (09:37→21:15)
[2021-07-24] MEDS: FAMOTIDINE 20 MG TAB PO SCH ×2 (09:37→21:15)
[2021-07-24] MEDS: INSULIN GLARGINE SOLOSTAR 100 UNITS/ML 3 ML PEN SC SCH (09:38)
[2021-07-24] MEDS: ASPIRIN 81 MG CHEW PO SCH (10:52)
--- NOTE | 2021-07-24 15:25 | Hospitalist Progress Note ---
Date of Service July 24, 2021 Assessment & Plan (1) Flash pulmonary edema: (2) Acute respiratory failure with hypoxia: (3) Acute on chronic systolic HF (heart failure): Plan: Plan: Acute on chronic systolic CHF TTE 05/2021-- Ejection fraction was 25% to 30%, last echo in May of 2021. Repeat TTE 07/20/21-- -. There is a diffuse hypokinesis to akinesis with focal akinesis of the anterior septum and apex. There is mild concentric LVH. LV systolic function is severely reduced. LVEF 20 to 25%. LA is mildly dilated. Grade 1 diastolic dysfunction. There is a moderate sized left pleural effusion. There is a small right pleural effusion. Compared to the previous study performed in May 2021 there has been further decline in the LVEF and new pleural effusions are present. Dilated inferior vena cava with reduced collapsibility with sniff indicates an elevated right atrial pressure of 15 mmHg. Doppler findings do not suggest pulmonary hypertension. There is no significant valvular pathology. -Appreciate Cardiology input, current optimizing medications. BP elevated on admission which likely contributed to her acute decompensation and flash pulm onary edema Acute hypoxic respiratory failure -due to above -required intubation, now on room air Demand ischemia -due to #1 above CAD s/p stent to LAD in February 2020, in last May of 2021 again had a LAD drug- eluting stent. On aspirin, Brilinta, beta erickson, statin, and ezetimibe, which are continued. Cardiology following Low grade temp -low grade temp 07/20 and again 07/22 overnight -UA neg, procalcitonin neg, WBC normal, CXR bibasilar opacities: atelectasis versus infectious/inflammatory process -Clinically appears to be atelectasis. Will discontinue ceftriaxone and monitor off antibiotics -Encourage OOB to chair and incentive spirometry Chronic medical conditions 4. Diabetes: Hold metformin. Placed on insulin sliding scale and Lantus and monitor the blood sugar and follow the HbA1c levels. 5. History of hypertension: BP being optimized by Cardiology 6. History of obstructive sleep apnea. Needs followup with sleep study. Will do nocturnal pulse ox when the patient is stable in the hospital. 7. Female stress incontinence: Continue oxybutynin. 8. Hyperlipidemia: On statin. 9. Depression: On Zoloft. 10. Gastroesophageal reflux disease: On Pepcid. DVT prophylaxis: Lovenox. DISPOSITION: Likely discharge home tomorrow if remains medically stable CODE: full code. Admission and Anticipated Discharge Date Admission Date: July 20, 2021 Subjective Patient remains on room air Worked with PT today and feels "wiped out" Concerned about being put back on torsemide, she doesn't feel it works well for her Reports frequent cough with incentive spirometry, bringing up clear phlegm No shortness of breath, no fever/chills Physical Exam Physical Exam: Appears well, no acute distress, non toxic Respiratory: Diminished at bases, no wheezing/rhonchi/rales Cardiovascular: regular rate and rhythm, no murmurs/rubs/gallops Gastrointestinal (Abdomen): soft, non tender, non distended Musculoskeletal: No edema Neurologic: awake, alert, spontaneously moving extremities Results & Data Results & Data ([facility]) Vital Signs (Past 12 Hours) Vital Signs Temp Pulse Pulse Pulse Resp BP Pulse Ox 07/24/21 15:05 89 07/24/21 15:03 36.5 C 66 17 138/71 96 07/24/21 11:44 36.6 C 75 19 142/85 H 95 07/24/21 08:00 80 07/24/21 07:28 36.5 C 70 15 127/71 97 Laboratory Results Short CBC 07/24/21 Range/Units 07:18 WBC 5.12 (4.8-10.8) K/uL Hgb 9.1 L (12.0-16.0) g/dL Hct 28.4 L (37-47) % Plt Count 246 (130-400) K/uL BMP 07/24/21 07:18 Sodium 138 Potassium 4.3 Chloride 103 Carbon Dioxide 29 BUN 33 H Creatinine 1.12 Glucose 154 H Calcium 8.8 Medications Administered Current Inpatient Medications Aspirin (Aspirin 81 Mg Chew) 81 mg PO QAM GLYNN Stop: 08/19/21 08:59 Last Admin: 07/24/21 10:52 Dose: 81 mg Documented by: Atorvastatin Calcium (Atorvastatin 40 Mg Tab) 80 mg PO HS GLYNN Stop: 08/19/21 20:59 Last Admin: 07/23/21 20:52 Dose: 80 mg Documented by: Dextrose (Dextrose 50% 50 Ml Syringe) 25 - 50 ml IV UD PRN; Protocol PRN Reason: Hypoglycemia Protocol Stop: 08/19/21 03:57 Ezetimibe (Ezetimibe 10 Mg Tablet) 10 mg PO DAILY GLYNN Stop: 08/19/21 08:59 Last Admin: 07/24/21 09:35 Dose: 10 mg Documented by: Enoxaparin Sodium (Enoxaparin Inj 40 Mg/0.4 Ml Syr) 40 mg SQ Q24H GLYNN Stop: 08/19/21 08:59 Last Admin: 07/24/21 09:37 Dose: 40 mg Documented by: Famotidine (Famotidine 20 Mg Tab) 20 mg PO BID GLYNN Stop: 08/19/21 08:59 Last Admin: 07/24/21 09:37 Dose: 20 mg Documented by: Gabapentin (Gabapentin 100 Mg Cap) 200 mg PO TID GLYNN Stop: 08/20/21 14:29 Last Admin: 07/24/21 14:47 Dose: 200 mg Documented by: Glucagon (Glucagon For Inj 1 Mg Vial) 1 mg SQ UD PRN; Protocol PRN Reason: Hypoglycemia Protocol Stop: 08/19/21 03:57 Glucose (Glucose 40% Gel 15 Gm Tube) 15 - 30 gm PO UD PRN; Protocol PRN Reason: Hypoglycemia Protocol Stop: 08/19/21 03:57 Glucose (Glucose 10 Tabs/Tube) 4 - 8 tabs PO UD PRN; Protocol PRN Reason: Hypoglycemia Protocol Stop: 08/19/21 04:14 Hydralazine HCl (Hydralazine 10 Mg Tab) 10 mg PO TID [facility] Stop: 08/21/21 08:59 Last Admin: 07/22/21 09:12 Dose: 10 mg Documented by: Insulin Aspart (Insulin Aspart Per Unit) 0 units SC ACHS [facility] Stop: 08/21/21 11:29 Last Admin: 07/24/21 11:56 Dose: 5 units Documented by: Insulin Glargine (Insulin Glargine Solostar 100 Units/Ml 3 Ml Pen) 10 units SC DAILY GLYNN Stop: 08/22/21 08:59 Last Admin: 07/24/21 09:38 Dose: 10 units Documented by: Lansoprazole (Lansoprazole 30 Mg Soltab) 30 mg NG DAILY [facility] Stop: 08/19/21 10:14 Last Admin: 07/24/21 09:36 Dose: 30 mg Documented by: Lisinopril (Lisinopril 20 Mg Tab) 20 mg PO DAILY [facility] Stop: 08/23/21 08:59 Last Admin: 07/24/21 09:36 Dose: 20 mg Documented by: Metoprolol Succinate (Metoprolol Succ 50mg Ext Rel Tab) 50 mg PO BID [facility] Stop: 08/22/21 08:59 Last Admin: 07/24/21 09:36 Dose: 50 mg Documented by: Miscellaneous (Carbohydrates For Hypoglycemia ) 15 - 30 gm PO UD PRN PRN Reason: Hypoglycemia Protocol Stop: 08/19/21 03:57 Miscellaneous Information (Pharmacy Glycemic Mgmt Consult) 1 ea N/A UD PRN; Protocol PRN Reason: Consult Stop: 08/19/21 03:57 Nitroglycerin (Nitroglycerin Sl 0.4 Mg/Tab Tab) 0.4 mg SL UD PRN PRN Reason: Chest Pain Stop: 08/19/21 03:50 Oxybutynin Chloride (Oxybutynin Chloride 5 Mg Tab) 5 mg PO DAILY [facility] Stop: 08/19/21 08:59 Last Admin: 07/24/21 09:36 Dose: 5 mg Documented by: Sertraline HCl (Sertraline Hcl 100 Mg Tablet) 100 mg PO QAM [facility] Stop: 08/19/21 08:59 Last Admin: 07/24/21 09:36 Dose: 100 mg Documented by: Ticagrelor (Ticagrelor 90 Mg Tab) 90 mg PO BID [facility] Stop: 08/19/21 08:59 Last Admin: 07/24/21 09:35 Dose: 90 mg Documented by: Torsemide (Torsemide 10 Mg Tab) 10 mg PO QAM [facility] Stop: 08/23/21 08:59 Last Admin: 07/24/21 09:36 Dose: 10 mg Documented by:
[2021-07-24] MEDS: ATORVASTATIN 40 MG TAB PO SCH (21:14)
[2021-07-25 07:38] LABS: Hematocrit (blood only) 27.9 % (37-47); Hemoglobin 9.2 g/dL (12.0-16.0); Mean Corpuscular Hemoglobin 29.8 pg (25-34); Mean Corpuscular Volume 90.3 fL (80-100); Mean Platelet Volume 9.9 fL (7.4-10.4); Platelet Count 244 K/uL (130-400); RDW Coefficient of Variation 13.8 % (11.5-14.5); RDW Standard Deviation 45.9 fL (36.4-46.3); Red Blood Count 3.09 M/uL (4.2-5.4); White Blood Count 5.12 K/uL (4.8-10.8)
[2021-07-25 07:56] LABS: BUN Creatinine Ratio 34.3 (10-20); Creatinine Clr Calc Pharmacy 54.4 ml/min; Est GFR (African American) 63.3 ml/min; Est GFR (Non-African American) 54.6 ml/min; Potassium 4.2 mmol/L (3.5-5.1)
[2021-07-25] MEDS: TICAGRELOR 90 MG TAB PO SCH (08:21)
[2021-07-25] MEDS: METOPROLOL SUCC 50MG EXT REL TAB PO SCH (08:21)
[2021-07-25] MEDS: GABAPENTIN 100 MG CAP PO SCH ×2 (08:21→12:01)
[2021-07-25] MEDS: ENOXAPARIN INJ 40 MG/0.4 ML SYR SQ SCH (08:22)
[2021-07-25] MEDS: FAMOTIDINE 20 MG TAB PO SCH (08:22)
[2021-07-25] MEDS: OXYBUTYNIN CHLORIDE 5 MG TAB PO SCH (08:22)
[2021-07-25] MEDS: SERTRALINE HCL 100 MG TABLET PO SCH (08:22)
[2021-07-25] MEDS: lisinopril 20 MG TAB PO SCH (08:22)
[2021-07-25] MEDS: LANSOPRAZOLE 30 MG SOLTAB NG SCH (08:22)
[2021-07-25] MEDS: EZETIMIBE 10 MG TABLET PO SCH (08:22)
[2021-07-25] MEDS: TORSEMIDE 10 MG TAB PO SCH (08:22)
[2021-07-25] MEDS: ASPIRIN 81 MG CHEW PO SCH (08:23)
[2021-07-25] MEDS: INSULIN ASPART PER UNIT SC SCH ×2 (09:26→11:16)
[2021-07-25] MEDS: INSULIN GLARGINE SOLOSTAR 100 UNITS/ML 3 ML PEN SC SCH (09:27)
--- NOTE | 2021-07-25 10:40 | Cardiology Progress Note ---
Date of Service July 25, 2021 Assessment & Plan (1) Acute respiratory failure with hypoxia: (2) Flash pulmonary edema: (3) Acute on chronic systolic HF (heart failure): (4) Bifascicular block: Plan: -Pt required endotracheal intubation for what appears to be recurrent flash pulmonary edema episode. Noted recent weight gain , however per bystander description of patient with acute "panic" and acute respiratory compromise along with chest X-ray findings certainly flash pulmonary edema event seems likely. At time of presentation in May,, symptoms rapidly improved with IV diuretic therapy. By the time pt had contact with medical care with this episode , respiratory failure had already occurred. HS Troponin of 18.1 pg/ml at 12:18 am, and 112 pg/ml 8 hours later, so has progressed , but not to the extent that her (low sensitivity) Troponin increased in May (levels of 0.08 ng/ml then the progressed to 6.9 and 11.6 ng/ml over 20 hr span. Echocardiogram with interval further decline in LVEF from 25-30% to 20-25% with apical akinesis and generalized worsening LV function compared to May,. Echo findings raise concern of for lack of viability of distal LAD territory at this time, compared to prior presentation. Patient did present with BP of 204/120 and therefore hypertension related event is a consideration or progression of her CAD. SARS-CoV-2 screen negative. Plan: Patient's pulmonary edema has improved. Patient currently without complaint Suspect mixed etiology of her complaints including LV systolic dysfunction, hypertensive urgency. EKG is not reflective of acute large vessel closure with last cardiac catheterization demonstrating mild to moderate diffuse atherosclerosis with coronary intervention to small left anterior descending. Troponins are consistent with demand ischemia currently no indications for acute coronary event Recommendations: Patient on optimal medical regimen at this time. Heart rate and blood pressure well controlled. Outpatient diuretic resumed without signs of volume overload. I believe current dose of torsemide is sufficient now that hemodynamics improved. Caution to have patient report any signs or symptoms of fluid tension Will consider addition of spironolactone post discharge CHF instructions given patient to continue digital scale weights sodium and fluid restriction. Patient will likely need walker for home and physical therapy Has scheduled appointment with PCP 07/31/2021 and cardiology 08/07/2021 Admission and Anticipated Discharge Date Admission Date: July 20, 2021 Subjective Patient was seen and examined, chart, medications, telemetry reviewed. Looks and feels well this morning has been ambulating in room with walker. No dizziness or lightheadedness no chest pains or shortness of breath. No arrhythmias. No bleeding difficulties. No hypoxia on room air no cough Review of Systems Review of Systems: All systems reviewed & are unremarkable except as noted in Subjective Physical Exam Physical Exam: Temp Pulse Resp BP Pulse Ox 36.6 C 68 17 137/67 99 07/20/21 03:49 07/20/21 07:10 07/20/21 07:10 07/20/21 06:00 07/20/21 07:10 Constitutional: WD/WN, vitals as above no acute distress ENMT: external ear and nose normal, oropharynx normal Neck: trachea midline, no thyromegaly Respiratory: Auscultation: lungs clear to auscultation bilaterally and + diminished lung sounds Cardiovascular: Rate/Rhythm: regular rate and regular rhythm Heart Sounds: no murmur Extremities: no edema Gastrointestinal (Abdomen): normal bowel sounds, soft, nontender, no hepatosplenomegaly Results & Data ([facility]) Vital Signs (Past 12 Hours) Vital Signs Temp Pulse Pulse Resp BP Pulse Ox 07/25/21 07:22 36.8 C 82 18 118/74 95 07/25/21 04:49 65 07/25/21 03:39 36.8 C 65 16 124/71 95 07/24/21 23:40 36.6 C 64 21 114/62 95 Laboratory Results Laboratory Results - last 24 hr 07/24/21 07/24/21 07/24/21 11:32 16:01 20:09 WBC RBC Hgb Hct MCV MCH MCHC RDW Std Deviation RDW Coeff of Ronaldo Plt Count MPV Sodium Potassium Chloride Carbon Dioxide Anion Gap BUN Creatinine Est Cr Clr Drug Dosing Est GFR ( Amer) Est GFR (Non-Af Amer) BUN/Creatinine Ratio Glucose POC Glucose 184 H 77 245 H Calcium Magnesium 07/25/21 07/25/21 07/25/21 06:48 06:48 07:22 WBC 5.12 RBC 3.09 L Hgb 9.2 L Hct 27.9 L MCV 90.3 MCH 29.8 MCHC 33.0 RDW Std Deviation 45.9 RDW Coeff of Ronaldo 13.8 Plt Count 244 MPV 9.9 Sodium 138 Potassium 4.2 Chloride 104 Carbon Dioxide 27 Anion Gap 7 BUN 37 H Creatinine 1.08 Est Cr Clr Drug Dosing 54.4 Est GFR ( Amer) 63.3 Est GFR (Non-Af Amer) 54.6 BUN/Creatinine Ratio 34.3 H Glucose 113 H POC Glucose 141 H Calcium 9.0 Magnesium 2.0
--- NOTE | 2021-07-25 11:10 | Pharmacy Report ---
Pharmacy Glycemic Short Note 2 - Date of Service July 25, 2021 - Glycemic Short BSG Results (Last 24 hours): 07/24/21 07/24/21 07/24/21 11:32 16:01 20:09 Glucose POC Glucose 184 H 77 245 H 07/25/21 07/25/21 07/25/21 06:48 07:22 11:00 Glucose 113 H POC Glucose 141 H 111 H OUTPATIENT ANTIDIABETIC REGIMEN: * Metformin 500 mg PO BID * HbA1c: 8.6% (07/20/21) ASSESSMENT: 07/25/21: * Patient received total of 33 units of insulin yesterday, of which 10 units were basal insulin * Fasting BSG 113 mg/dL - continue with 10 units daily * Home metformin restarted today at lunch time, plan to remove CR for now 07/22/21: * Pt extubated yesterday. Diet resumed. * Small dose of Lantus added this morning. Will titrate as indicated. * Carb coverage added to Novolog parameters. * BSGs have been relatively stable on small doses of correctional insulin. 07/20 * Patient 65 yo type II diabetic admitted with significant heart history, intubated for flash pulmonary edema with decrease ejection fraction. Intubated, sedated with propofol. * BSGs elevated this morning, likely d/t stress, have improved with subq novolog, will continue for now * Plan for patient to intubated for 24 hours, will continue with novolog scale and monitor for additional insulin need PLAN FOR INPATIENT GLYCEMIC CONTROL: * Home metformin 500 mg bid - resumed 07/25 * Basal insulin * Lantus 10 units daily * Bolus insulin * NovoLog per scale ACHS or Q6hrs while NPO * Goal Range: Low 140 mg/dL - High 180 mg/dL * Correction Factor: 25 mg/dL/unit * Nutritional / Prandial insulin per carb ratio - none
[2021-07-25] MEDS ORDERED: metFORMIN HCL ER 500 MG TABCR PO SCH (11:30)
--- NOTE | 2021-07-25 17:06 | Discharge Summary ---
Date of Service July 25, 2021 Admission HPI Per Admitting Provider This is a 65-year-old female with past medical history significant for hyperlipidemia, female stress incontinence, type 2 diabetes, hypertension, obstructive sleep apnea, depression, diabetic polyneuropathy, GERD, history of ST elevated MA, status post stent, history of chronic systolic CHF, presents with shortness of breath. The patient was recently in the hospital in May with flash pulmonary edema at that time. Also found to have non-ST elevation MA, echo showed 25% to 30% EF and underwent cardiac catheterization on 06/18/2021 demonstrating severe mid LAD stenosis distal to previously implanted DORIAN. Underwent repeat drug-eluting stent implantation and she did okay and was discharged. Seen by followup with cardiology and there is plan for initiation of Entresto and also referred for sleep for sleep apnea. The patient lives with her . Daughter is in the room. Apparently, the patient was doing fine until 8:00 p.m. when she called the daughter and told she and her dad were not feeling well and feeling short of breath and by 10:00 the shortness of breath got worse and EMS was called and EMS brought her into the ER. She was saturating at 70% and as she had nausea and vomiting,she was not placed on BiPAP. She was placed in the high flow and she was not improving and she is status post intubated. Currently saturating okay on ventilator. Hemodynamically stable. Could not get much history from the daughter. As per daughter, she was doing fine until this event happened . Neighbor who check on her daily as per daughter also told her that she was doing okay until this episode. Principal Diagnosis Acute on chronic systolic CHF Acute hypoxic respiratory failure Demand Ischemia Atelectasis Ambulatory dysfunction Discharge Exam " I feel great" Patient feels well. Denies chest pain, shortness of breath. No leg swelling. Feels ready to return home. Discharge Data Allergies Allergy/AdvReac Type Severity Reaction Status Date / Time hydrocodone Allergy Intermediate Hives Verified 07/20/21 00:26 milk Allergy Intermediate Hives Verified 07/20/21 00:26 pine nut Allergy Intermediate Hives Verified 07/20/21 00:26 empagliflozin AdvReac Intermediate DIARRHEA--PER Verified 07/20/21 00:26 [From Jardiance] GMG lactose AdvReac Intermediate Gastrointestinal Verified 07/20/21 00:26 Upset semaglutide AdvReac Intermediate Diarrhea Verified 07/20/21 00:26 vaccine adjuvant system, AdvReac Intermediate LETHARGIC, Verified 07/20/21 00:26 AS01B liposomal PAIN, [From Shingrix (PF)] FATIGUE varicella-zoster virus AdvReac Intermediate LETHARGIC, Verified 07/20/21 00:26 glycoprotein E, recombinant PAIN, [From Shingrix (PF)] FATIGUE Consultations 07/20/21 01:50 ED Decision to Admit Stat 07/20/21 03:51 Consult Paint Prep Technician Routine 07/20/21 08:00 Consult Cardiology Routine Hospital Course (1) Flash pulmonary edema: (2) Acute respiratory failure with hypoxia: (3) Acute on chronic systolic HF (heart failure): Acute on chronic systolic CHF TTE 05/2021-- Ejection fraction was 25% to 30% Repeat TTE 07/20/21-- There is a diffuse hypokinesis to akinesis with focal akinesis of the anterior septum and apex. There is mild concentric LVH. LV systolic function is severely reduced. LVEF 20 to 25%. LA is mildly dilated. Grade 1 diastolic dysfunction. There is a moderate sized left pleural effusion. There is a small right pleural effusion. Compared to the previous study performed in May 2021 there has been further decline in the LVEF and new pleural effusions are present. Dilated inferior vena cava with reduced collapsibility with sniff indicates an elevated right atrial pressure of 15 mmHg. Doppler findings do not suggest pulmonary hypertension. There is no significant valvular pathology. -Appreciate Cardiology input, currently optimizing medications. BP elevated on admission which likely contributed to her acute decompensation and flash pulmonary edema -Lisinopril increased to 20mg daily and Toprol to 50mg BID with much better BP control. She received parenteral diuresis and her home torsemide was resumed prior to discharge. -Will need to follow up with Cardiology after discharge, consideration of addition of spironolactone outpatient. Acute hypoxic respiratory failure -due to above -required intubation upon arrival here, later extubated and doing well on room air Demand ischemia -due to #1 above CAD s/p stent to LAD in February 2020, in last May of 2021 again had a LAD drug- eluting stent. On aspirin, Brilinta, beta erickson, statin, and ezetimibe, which are continued here Low grade temp -low grade temp 07/20 and again 07/22 overnight -UA neg, procalcitonin neg, WBC normal, CXR bibasilar opacities: atelectasis versus infectious/inflammatory process -Clinically appears to be atelectasis. Was placed on ceftriaxone empirically which was later discontinued when infectious workup was negative. She was observed 24 hours off antibiotics and remained stable. -Encourage OOB to chair and incentive spirometry Patient was evaluated by PT and recommended home with PT. Rolling walker was also ordered Home Health Attestation I certify that this patient is under my care and that I, or a physicians financial assistant working with me, had a face to-face encounter that meets the home health [id number] encounter requirements with this patient. The encounter with the patient was in whole, or in part, for the following medical condition, which is the primary reason for home health care (list medical condition): Sob I certify that, based on my findings, the following services are medically necessary home health services: My clinical findings support the need for the above services because: PT Assessment for Endurance / Balance / Strength PT Eval for Safety and Mobility PT Eval for Safety, Gait Training, Assistive Devices PT Gait and Balance Training, Strengthening and Safety Skilled Nsg Assessment Further, I certify that my clinical findings support that this patient is homebound (i.e. absences from home require considerable and taxing effort and are for medical reasons or roman catholic services or infrequently or of short duration when for other reasons) because: Supportive Aid - Walker Certification for Home Health Services: Based on the above findings, I certify that this patient is confined to the home and needs intermittent half-way care, physical therapy and/or speech therapy or continues to need occupational therapy. The patient is under my care, and I have initiated the establishment of the plan of care. This patient will be followed by a physician who will periodically review the plan of care. Total Time Total Time Spent Total Time Spent (In Minutes): 40 Discharge Plan Discharge Items Patient Disposition: Home - Home Health Services Reason For Visit: SOB Discharge Diagnosis: Acute on chronic systolic CHF Acute hypoxic respiratory failure Demand Ischemia Atelectasis Ambulatory dysfunction Condition on Discharge: Good Activity: Resume your previous activity Non-emergency contact: Primary Care Provider and Cnc Maintenance Mechanic Call non-emergency contact if: you have any medication questions Follow-up/Referrals: Carole Alejo PA-C [Physician Cold Storage Supervisor] - 08/07/21 3:00 pm (Date & Time 08/07/2021 3:00 PM Provider Carole Alejo PA-C Department Cardiology, [facility] ) Scarlett Pires MD [Primary Care Provider] - 07/31/21 3:40 pm (Date & Time 07/31/2021 3:40 PM Provider Scarlett Devries MD Department Family Medicine [facility] ) Diet: Carb Consistent or DM2 and Heart Healthy Fluids: 1500ml (6 cups) Addtl Attending Provider Instructions: Please follow up with your primary care doctor and director telemetry at your scheduled appointments Stand-Alone Forms: My [facility], Smoking Cessation Medications and DC Order Prescriptions: New metoprolol succinate 50 mg Tablet Extended Release 24 Hr 50 mg PO BID 60 Days Qty: 60 RF: 1 lisinopril 20 mg Tablet 20 mg PO DAILY 60 Days Qty: 30 RF: 1 Continued atorvastatin [Lipitor] 80 mg Tablet 80 mg PO HS 60 Days Qty: 30 RF: 1 sertraline [Zoloft] 100 mg tablet 100 mg PO QAM 60 Days Qty: 30 RF: 1 torsemide 10 mg tablet 10 mg PO DAILY 60 Days Qty: 30 RF: 1 aspirin [Aspirin Low Dose] 81 mg Tablet,Delayed Release (Dr/Ec) 81 mg PO QAM 60 Days Qty: 30 RF: 1 pantoprazole [Protonix] 20 mg tablet,delayed release (DR/EC) 20 mg PO DAILY 60 Days Qty: 30 RF: 1 famotidine [Pepcid] 20 mg Tablet 20 mg PO BID 30 Days Qty: 60 RF: 0 nitroglycerin [Nitrostat] 0.4 mg tablet, sublingual 0.4 mg sublingual UD PRN (Reason: Chest Pain) 60 Days Qty: 90 RF: 1 gabapentin 100 mg capsule 200 mg PO TID 60 Days Qty: 180 RF: 1 oxybutynin chloride 5 mg Tablet 5 mg PO DAILY 60 Days Qty: 30 RF: 1 metformin 500 mg tablet extended release 24 hr 500 mg PO BIDM 60 Days Qty: 60 RF: 1 ezetimibe 10 mg tablet 10 mg PO DAILY 60 Days Qty: 30 RF: 1 Brilinta 90 mg Tablet 90 mg PO BID Qty: 60 RF: 1 Discontinued lisinopril [Zestril] 5 mg Tablet 5 mg PO BID Qty: 60 RF: 0 metoprolol succinate [Toprol XL] 25 mg tablet extended release 24 hr 25 mg PO BID RF: 0 Discharge Orders: Discharge Order (Routine); Ordered 07/25/21 Ordered By: Catrina Trent/Other Patient Handouts: Managing Type 2 Diabetes Admission Data Admit Date/Time: 07/20/21 02:36 Attending Provider: Catrina Hollins Admit Provider: Marty Wakefield Primary Care Provider: Scarlett Pires Other Providers: Marty Wakefield ; Alexey Cornelius ; Chucky Trammell ; Wilmer Delcid ; Kiran Horne ; Dimitris Bullock ; Dennis Dsouza ; Caden Sesay ; Carole Alejo ; Tess Rosenthal ; Leila Hager ; Devan Mason ; Jose Chiu Other Interventions: Discharge Summary Assessment (RN) Last Done: 07/25/21 13:13
--- NOTE | 2021-08-01 08:54 | Coding Query ---
CODING QUERY To promote full compliance with coding requirements relating to patient care, provider participation is requested in all cases of fisher reef net uncertainty. Please assist us with the question(s) below: Coding Question(s): Pt admitted with acute /chronic systolic and and diastolic heart failure . 07/23 progress note documented Possible NSTEMI secondary to Demand Ischemia. Discharge Summary mentioned Demand Ischemia . Please check below the diagnoses that was treated during this Inpatient Stay. Thank you . Alex Costello [facility] Physician's Response(s): _X___ Demand Ischemia Possible NSTEMI 2nd to Demand Ischemia Cannot Clinically Correlate if demand ischemia or NSTEMI with demand ischemia was treated Other: Please document: Principal Diagnosis: "that condition established after study, to be chiefly responsible for occasioning the admission of the patient to the hospital for care." Co-Existing Principal Diagnosis: "when two or more diagnoses equally meet the criteria for principal diagnosis as determined by the circumstances of admission, diagnostic work up, and/or therapy provided, and the Alphabetic Index, Tabular List, or another coding guideline does not provide sequencing direction, any one of the diagnoses may be sequenced first." "When the physician has documented what appears to be a current diagnosis in the body of the record, but has not included the diagnosis in the final diagnostic statement, the physician should be asked whether the diagnosis should be added." (Source Coding Clinic 2 QTR90. p3-4) ANA PAULA
== END 2021-07-25 14:34 | disposition home health service (06) | DRG 291 ==
LOC: ED 23:30 → SUATTDRO 07-20 02:36 → 1E 07-20 02:36 → 2S 07-22 18:53

== ENCOUNTER 2021-12-03 18:29 | Inpatient (IN) ==
--- NOTE | 2021-12-03 18:44 | ED Triage Note ---
Date of Service December 03, 2021 History of Present Illness This patient was briefly evaluated while in triage. An abbreviated physical exam was performed. This patient is a 66-year-old Female with past medical history of CAD, NSTEMI, DAVID, DMII, who presents to the ED for evaluation of congestion, vomiting, diarrhea, weakness which started yesterday. Pt. not eating or drinking today. Hx similar symptoms about a year ago. Physical Exam VITALS: Vitals are noted on the nurse's note and reviewed by myself. GENERAL: This is a 66 year old white female, in no acute distress, nondiaphoretic, well-developed well-nourished. SKIN: No rashes, edema, erythema HEAD: Normocephalic atraumatic. EYES: Conjunctivae without injection, sclerae without icterus. NECK: No lymphadenopathy. Cervical spine is nontender. No JVD. LUNGS: No retractions or accessory muscle use. MUSCULOSKELETAL: Pt. presents in a wheelchair. NEURO: Patient was alert and oriented to person place and time. No focal neurological deficits. Initial orders for labs and / or imaging were placed and patient was placed in the waiting area until a bed is available. Please see further documentation for the full ED course. MDM / Impression Impression Impression: Hypoxia, COVID-19
[2021-12-03 19:26] LABS: Basophils # (auto) 0.01 K/uL (0-0.2); Basophils % (auto) 0.2 %; Eosinophils # (auto) 0.01 K/uL (0-0.50); Eosinophils % (auto) 0.2 %; Hematocrit (blood only) 24.5 % (34.1-44.9); Immature Granulocytes # (auto) 0.04 K/uL (0.00-0.02); Immature Granulocytes % (auto) 0.7 %; Mean Corpuscular Hemoglobin 30.8 pg (25.0-34.0); Mean Corpuscular Hgb Conc 32.7 g/dL (32.0-36.0); Mean Corpuscular Volume 94.2 fL (80.0-100.0); Monocytes % (auto) 5.3 %; Neutrophils # (auto) 4.92 K/uL (1.4-6.5); Neutrophils % (auto) 86.6 %; Platelet Count 161 K/uL (130-400); RDW Coefficient of Variation 14.1 % (11.5-14.5); RDW Standard Deviation 48.1 fL (36.4-46.3); White Blood Count 5.68 K/ul (4.8-10.8)
[2021-12-03 19:47] LABS: Alanine Aminotransferase 5 U/L (7-52); Albumin Globulin Ratio 1.3 (0.9-2); Albumin Level 3.8 gm/dl (3.4-5.0); Alkaline Phosphatase 65 U/L (34-104); Anion Gap 9 (3-11); Aspartate Aminotransferase 15 U/L (13-39); BUN Creatinine Ratio 17.5 (10-20); Bilirubin,Total 0.5 mg/dl (0.2-1.0); Blood Urea Nitrogen 17 mg/dl (6-23); Calcium 8.9 mg/dl (8.5-10.1); Carbon Dioxide 24 mmol/L (21-32); Chloride 102 mmol/L (98-107); Est GFR (African American) 71.5 ml/min; Est GFR (Non-African American) 61.7 ml/min; Glucose 144 mg/dl (70-99(Fasting)); Lipase 11 U/L (11-82); Magnesium 1.3 mg/dl (1.7-2.4); Potassium 3.9 mmol/L (3.5-5.1); Sodium 135 mmol/L (136-145); Total Protein 6.8 gm/dl (6.0-8.3)
--- NOTE | 2021-12-03 20:06 | XRay Report ---
XR chest 1V portable CLINICAL HISTORY: cough TECHNIQUE: Single frontal radiograph of the chest was obtained. Comparison: Comparison is made to chest radiograph 07/22/2021 FINDINGS: Pacemaker defibrillator is seen. Cardiomegaly is noted. Prominence and cephalization of the vasculatu re is seen. No evidence of pleural effusion or pneumothorax. IMPRESSION: Cardiomegaly with mild pulmonary edema. Interval resolution of previously noted bibasilar opacities. ACT 112: Negative or not required by law. Electronically signed by: Hung Hudson M.D. 12/03/2021 8:04 PM
[2021-12-03 20:07] LABS: Influenza A virus by PCR Negative (Neg); Influenza B virus by PCR Negative (Neg); RSV by PCR Negative (Neg)
[2021-12-03 20:21] LABS: SARS CoV2 RNA(COVID-19) InHosp POSITIVE (Negative)
[2021-12-03] MEDS ORDERED: dexAMETHasone 6 MG in SYRINGE 0 ML IV ONE (21:18)
[2021-12-03] MEDS ORDERED: DEXAMETHASONE SOD INJ 4 MG/ML VIAL ONE (21:34)
--- NOTE | 2021-12-03 21:43 | Emergency Department Note ---
History of Present Illness General Chief complaint: Vomiting Stated complaint: FATIGUE, CONGESTED, FEVER, DIARRHEA, VOMIT Time Seen by Provider: 12/03/21 20:54 Home Medications Medication Instructions Recorded Confirmed Type aspirin 81 mg tablet,delayed 81 mg PO QAM 60 days #30 tabs 07/25/21 Rx release (Kyle Low Dose Aspirin) atorvastatin 80 mg tablet (Lipitor) 80 mg PO HS 60 days #30 tabs 07/25/21 Rx ezetimibe 10 mg tablet 10 mg PO DAILY 60 days #30 tabs 07/25/21 Rx famotidine 20 mg tablet (Pepcid) 20 mg PO BID 30 days #60 tabs 07/25/21 07/20/21 Rx gabapentin 100 mg capsule 200 mg PO TID 60 days #180 caps 07/25/21 Rx lisinopril 20 mg tablet 20 mg PO DAILY 60 days #30 tabs 07/25/21 Rx metformin 500 mg tablet,extended 500 mg PO BIDM 60 days #60 tabs 07/25/21 Rx release 24 hr metoprolol succinate 50 mg 50 mg PO BID 60 days #60 tabs 07/25/21 Rx tablet,extended release 24 hr nitroglycerin 0.4 mg sublingual 0.4 mg sublingual UD PRN Chest 07/25/21 Rx tablet (Nitrostat) Pain 60 days #90 tabs oxybutynin chloride 5 mg tablet 5 mg PO DAILY 60 days #30 tabs 07/25/21 Rx pantoprazole 20 mg tablet,delayed 20 mg PO DAILY 60 days #30 tabs 07/25/21 Rx release (Protonix) sertraline 100 mg tablet (Zoloft) 100 mg PO QAM 60 days #30 tabs 07/25/21 Rx ticagrelor 90 mg tablet (Brilinta) 90 mg PO BID #60 tabs 07/25/21 Rx torsemide 10 mg tablet 10 mg PO DAILY 60 days #30 tabs 07/25/21 Rx Allergies Allergy/AdvReac Type Severity Reaction Status Date / Time hydrocodone Allergy Intermediate Hives Verified 07/20/21 00:26 milk Allergy Intermediate Hives Verified 07/20/21 00:26 pine nut Allergy Intermediate Hives Verified 07/20/21 00:26 empagliflozin AdvReac Intermediate DIARRHEA--PER Verified 07/20/21 00:26 [From Jardiance] GMG lactose AdvReac Intermediate Gastrointestinal Verified 07/20/21 00:26 Upset semaglutide AdvReac Intermediate Diarrhea Verified 07/20/21 00:26 vaccine adjuvant system, AdvReac Intermediate LETHARGIC, Verified 07/20/21 00:26 AS01B liposomal PAIN, [From Shingrix (PF)] FATIGUE varicella-zoster virus AdvReac Intermediate LETHARGIC, Verified 07/20/21 00:26 glycoprotein E, recombinant PAIN, [From Shingrix (PF)] FATIGUE Past Med/Surg History Medical History Anemia Arthritis CAD (coronary artery disease) 02/2020-DORIAN x2 to mid LAD 04/2020 cardiac cath demonstrated patent stents and nonobstructive disease Depression Diabetic polyneuropathy DMII (diabetes mellitus, type 2) GERD (gastroesophageal reflux disease) HTN (hypertension) Ischemic cardiomyopathy DAVID (obstructive sleep apnea) STEMI (ST elevation myocardial infarction) Surgical History History of appendectomy History of carpal tunnel surgery Hx of cholecystectomy No pertinent past surgical history S/P arterial stent S/P FELA (total abdominal hysterectomy) Family History Other Deep vein thrombosis Social History Smoking Status: Never smoker Tobacco Type: Cigarettes Second Hand Exposure: No; Hx Alcohol Use: Yes Alcohol type: wine Hx Substance Use: No Preferred Language: Occitan Communication Ability: Effective Visual Impairment: No Limitations Hearing Ability: Normal Insurance Verify Rep Required: No Beliefs That Will Affect Care: None marital status: Current Living Situation: Spouse Current Living Situation Comment: The patient states that she lives with her child and their fianc. current occupational status: unemployed How many Children do You have: 3 Feels Safe at Home: Yes Assistive Devices: Cane Physical Exam Vital Signs Vital Signs - 24 hr 12/03/21 18:42 12/03/21 20:40 12/03/21 21:01 Temperature 36.7 C Temperature Source Temporal Artery Scan Pulse Rate 103 H 102 H Pulse Rate [Apical] 100 H Pulse Rate from SpO2 Sensor 102 H Pulse Rhythm [Apical] Regular Pulse Strength [Apical] Normal Respiratory Rate 18 24 Respiratory Effort / Characteristics Non-Labored Spontaneous Non-Labored Spontaneous Respiratory Depth Normal Normal Respiratory Pattern Regular Regular Blood Pressure 153/81 H 169/89 H Blood Pressure [Right Arm] 151/79 H Blood Pressure Mean 105 115 Blood Pressure Mean [Right Arm] 103 Blood Pressure Position [Right Arm] Sitting Pulse Oximetry 95 94 92 Oxygen Delivery Method Room Air Room Air Room Air Oxygen Flow Rate Sepsis Recent Fever Within 48 Hours No Sepsis New/Unexplained Change in Mental Status No Sepsis Action Taken by Nursing No Action Required 12/03/21 21:16 12/03/21 21:17 Temperature Temperature Source Pulse Rate Pulse Rate [Apical] Pulse Rate from SpO2 Sensor Pulse Rhythm [Apical] Pulse Strength [Apical] Respiratory Rate Respiratory Effort / Characteristics Respiratory Depth Respiratory Pattern Blood Pressure Blood Pressure [Right Arm] Blood Pressure Mean Blood Pressure Mean [Right Arm] Blood Pressure Position [Right Arm] Pulse Oximetry 88 L 96 Oxygen Delivery Method Room Air Nasal Cannula Oxygen Flow Rate 2 Sepsis Recent Fever Within 48 Hours Sepsis New/Unexplained Change in Mental Status Sepsis Action Taken by Nursing Course Administered Medications Discontinued Medications Dexamethasone (Dexamethasone Sod Inj 4 Mg/Ml Vial) Confirm Administered Dose 8 mg .ROUTE .STK-MED ONE Stop: 12/03/21 21:35 Last Admin: 12/03/21 21:36 Dose: 6 mg Documented By: Dexamethasone 6 mg/ Syringe 1.5 mls @ 1 mls/min IV ONE ONE Stop: 12/03/21 21:19 Last Admin: 12/03/21 21:39 Dose: Not Given Documented By: Medical Decision Making Laboratory Data Result diagrams: 12/03/21 19:15 12/03/21 19:15 Lab Results 12/03/21 12/03/21 12/03/21 Range/Units 19:15 19:15 19:15 WBC 5.68 (4.8-10.8) K/ul RBC 2.60 L (3.93-5.22) M/uL Hgb 8.0 L (12.0-16.0) g/dl Hct 24.5 L (34.1-44.9) % MCV 94.2 (80.0-100.0) fL MCH 30.8 (25.0-34.0) pg MCHC 32.7 (32.0-36.0) g/dL RDW Std Deviation 48.1 H (36.4-46.3) fL RDW Coeff of Ronaldo 14.1 (11.5-14.5) % Plt Count 161 (130-400) K/uL MPV 10.0 (9.4-12.3) fL Immature Gran % (Auto) 0.7 % Neut % (Auto) 86.6 % Lymph % (Auto) 7.0 % [place] % (Auto) 5.3 % Eos % (Auto) 0.2 % Baso % (Auto) 0.2 % Neut # (Auto) 4.92 (1.4-6.5) K/uL Lymph # (Auto) 0.40 L (1.2-3.4) K/uL [place] # (Auto) 0.30 (0.24-0.82) K/uL Eos # (Auto) 0.01 (0-0.50) K/uL Baso # (Auto) 0.01 (0-0.2) K/uL Immature Gran # (Auto) 0.04 H (0.00-0.02) K/uL Sodium 135 L (136-145) mmol/L Potassium 3.9 (3.5-5.1) mmol/L Chloride 102 (98-107) mmol/L Carbon Dioxide 24 (21-32) mmol/L Anion Gap 9 (3-11) BUN 17 (6-23) mg/dl Creatinine 0.97 (0.6-1.2) mg/dl Est Cr Clr Drug Dosing Not Reportable Est GFR ( Amer) 71.5 ml/min Est GFR (Non-Af Amer) 61.7 ml/min BUN/Creatinine Ratio 17.5 (10-20) Glucose 144 H (70-99(Fasting)) mg/dl Calcium 8.9 (8.5-10.1) mg/dl Magnesium 1.3 L (1.7-2.4) mg/dl Total Bilirubin 0.5 (0.2-1.0) mg/dl AST 15 (13-39) U/L ALT 5 L (7-52) U/L Alkaline Phosphatase 65 (34-104) U/L Total Protein 6.8 (6.0-8.3) gm/dl Albumin 3.8 (3.4-5.0) gm/dl Globulin 3.0 (2.5-4.0) gm/dl Albumin/Globulin Ratio 1.3 (0.9-2) Lipase 11 (11-82) U/L SARS-CoV-2 (PCR) POSITIVE A* (Negative) Influenza Type A (PCR) Negative (Neg) Influenza Type B (PCR) Negative (Neg) RSV (RT-PCR) Negative (Neg) Imaging Data Radiologist's Impression: Chest X-Ray 12/03/21 18:44 XR chest 1V portable CLINICAL HISTORY: cough TECHNIQUE: Single frontal radiograph of the chest was obtained. Comparison: Comparison is made to chest radiograph 07/22/2021 FINDINGS: Pacemaker defibrillator is seen. Cardiomegaly is noted. Prominence and cephalization of the vasculature is seen. No evidence of pleural effusion or pneumothorax. IMPRESSION: Cardiomegaly with mild pulmonary edema. Interval resolution of previously noted bibasilar opacities. ACT 112: Negative or not required by law. Electronically signed by: Hung Hudson M.D. 12/03/2021 8:04 PM Discharge Plan Visit Data Chief Complaint: Vomiting Stated Complaint: FATIGUE, CONGESTED, FEVER, DIARRHEA, VOMIT ED Provider: Samson Richardson Forms Stand Alone Forms: My [facility] Prescriptions Prescriptions: No Action metoprolol succinate 50 mg Tablet Extended Release 24 Hr 50 mg PO BID 60 Days Qty: 60 1RF lisinopril 20 mg Tablet 20 mg PO DAILY 60 Days Qty: 30 1RF atorvastatin [Lipitor] 80 mg Tablet 80 mg PO HS 60 Days Qty: 30 1RF sertraline [Zoloft] 100 mg tablet 100 mg PO QAM 60 Days Qty: 30 1RF torsemide 10 mg tablet 10 mg PO DAILY 60 Days Qty: 30 1RF Rx Instructions: MAY TAKE ADDITIONAL DOSE IF NEEDED aspirin [Kyle Low Dose Aspirin] 81 mg Tablet,Delayed Release (Dr/Ec) 81 mg PO QAM 60 Days Qty: 30 1RF pantoprazole [Protonix] 20 mg tablet,delayed release (DR/EC) 20 mg PO DAILY 60 Days Qty: 30 1RF famotidine [Pepcid] 20 mg Tablet 20 mg PO BID 30 Days Qty: 60 0RF nitroglycerin [Nitrostat] 0.4 mg tablet, sublingual 0.4 mg sublingual UD PRN (Reason: Chest Pain) 60 Days Qty: 90 1RF gabapentin 100 mg capsule 200 mg PO TID 60 Days Qty: 180 1RF oxybutynin chloride 5 mg Tablet 5 mg PO DAILY 60 Days Qty: 30 1RF metformin 500 mg tablet extended release 24 hr 500 mg PO BIDM 60 Days Qty: 60 1RF ezetimibe 10 mg tablet 10 mg PO DAILY 60 Days Qty: 30 1RF Brilinta 90 mg Tablet 90 mg PO BID Qty: 60 1RF Referrals Referrals: Scarlett Pires MD [Primary Care Provider] -
[2021-12-03] MEDS ORDERED: METOPROLOL TARTRATE 1 MG/ML VIAL IV STA (22:13)
[2021-12-03] MEDS ORDERED: POTASSIUM CHLORIDE PWD 20 MEQ PACK PO STA (22:14)
[2021-12-03] MEDS ORDERED: FUROSEMIDE INJ 20 MG/2 ML VIAL IV ONE (22:17)
[2021-12-03] MEDS ORDERED: LEVALBUTEROL 1.25MG/0.5ML NEB INH STA (22:17)
[2021-12-03] MEDS ORDERED: IPRATROPIUM BROMIDE NEB SOLN 0.02% 2.5 ML VIAL INH STA (22:17)
[2021-12-03] MEDS ORDERED: XOPENEX/ATROVENT 1.25mg/0.5MG NEB COMBO NEB STA (22:17)
--- NOTE | 2021-12-03 23:04 | History & Physical Report ---
Date of Service December 03, 2021 Assessment & Plan (1) Acute hypoxemic respiratory failure: Plan: Multifactorial: COVID-19 pneumonia Mild CHF, hx chronic systolic heart failure status post ICD, congestion and x- ray although patient seems intravascularly dry. hx CAD status post stent hypertension, BP slightly elevated hyperlipidemia on statin Rx DM2 on oral medications, reasonable control as of recent hemoglobin A1c of 7.24 August 2021 chronic anemia, hemoglobin at baseline past tobacco abuse. Supplemental O2 Decadron Patient family adamantly refusing Remdesivir recommendation. Lasix 1 dose now Resume home torsemide Rx once patient euvolemic Basal insulin adjusted for clear liquid diet for now, ISS BG goal [id number] DVT prophylaxis. Lovenox subcu Full code Patient daughter requesting updates from providers. Ms. Caroline Sandoval, contact #[phone]. Text document was generated using Rue89 voice recognition software. It may contain grammatical or spelling errors. Kindly contact undersigned for clarification of any documentation item in [place] ion. History of Present Illness Chief Complaint: Weakness Primary Care Provider: Scarlett Pires MD History obtained from patient, family, and records. Medical history significant for chronic systolic heart failure (EF 35%, TTE 2021) status post ICD, CAD status post stent, hypertension, hyperlipidemia, DM2 on oral medications, GERD, chronic anemia (baseline hemoglobin of 8-9), mood disorder, past tobacco abuse. Last confinement July 2021 for decompensated heart failure. 2 days history of dry cough symptoms without chest pain or SOB. Patient with nausea vomiting, watery diarrhea symptoms without abdominal pain. Denies fluid retention. Increasing weakness. Possible sick contacts at home. Patient completed COVID-19 vaccination. Denies fluid retention. O2 sats 88 on room air at some point during ER stay. Decadron given at the ER. 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 Allergies Allergy/AdvReac Type Severity Reaction Status Date / Time hydrocodone Allergy Intermediate Hives Verified 12/03/21 23:38 milk Allergy Intermediate Hives Verified 12/03/21 23:38 pine nut Allergy Intermediate Hives Verified 12/03/21 23:38 empagliflozin AdvReac Intermediate DIARRHEA--PER Verified 12/03/21 23:38 [From Jardiance] GMG lactose AdvReac Intermediate Gastrointestinal Verified 12/03/21 23:38 Upset semaglutide AdvReac Intermediate Diarrhea Verified 12/03/21 23:38 vaccine adjuvant system, AdvReac Intermediate LETHARGIC, Verified 12/03/21 23:38 AS01B liposomal PAIN, [From Shingrix (PF)] FATIGUE varicella-zoster virus AdvReac Intermediate LETHARGIC, Verified 12/03/21 23:38 glycoprotein E, recombinant PAIN, [From Shingrix (PF)] FATIGUE Home Medications Medication Instructions Recorded Confirmed Type aspirin 81 mg tablet,delayed 81 mg PO QAM 60 days #30 tabs 07/25/21 12/04/21 Rx release (Kyle Low Dose Aspirin) atorvastatin 80 mg tablet (Lipitor) 80 mg PO HS 60 days #30 tabs 07/25/21 12/04/21 Rx ezetimibe 10 mg tablet 10 mg PO DAILY 60 days #30 tabs 07/25/21 12/04/21 Rx famotidine 20 mg tablet (Pepcid) 20 mg PO BID 30 days #60 tabs 07/25/21 12/04/21 Rx gabapentin 100 mg capsule 200 mg PO TID 60 days #180 caps 07/25/21 Rx lisinopril 20 mg tablet 20 mg PO DAILY 60 days #30 tabs 07/25/21 Rx metformin 500 mg tablet,extended 500 mg PO BIDM 60 days #60 tabs 07/25/21 12/04/21 Rx release 24 hr metoprolol succinate 50 mg 50 mg PO BID 60 days #60 tabs 07/25/21 12/04/21 Rx tablet,extended release 24 hr nitroglycerin 0.4 mg sublingual 0.4 mg sublingual UD PRN Chest 07/25/21 Rx tablet (Nitrostat) Pain 60 days #90 tabs oxybutynin chloride 5 mg tablet 5 mg PO DAILY 60 days #30 tabs 07/25/21 12/04/21 Rx pantoprazole 20 mg tablet,delayed 20 mg PO DAILY 60 days #30 tabs 07/25/21 12/04/21 Rx release (Protonix) sertraline 100 mg tablet (Zoloft) 100 mg PO QAM 60 days #30 tabs 07/25/21 12/04/21 Rx ticagrelor 90 mg tablet (Brilinta) 90 mg PO BID #60 tabs 07/25/21 12/04/21 Rx torsemide 10 mg tablet 10 mg PO DAILY 60 days #30 tabs 07/25/21 12/04/21 Rx sacubitril 24 mg-valsartan 26 mg 1 tab PO BID 12/04/21 12/04/21 History tablet (Entresto) Past Med/Surg History Medical History Acute non-ST elevation myocardial infarction (NSTEMI) Anemia Arthritis CAD (coronary artery disease) 02/2020-DORIAN x2 to mid LAD 04/2020 cardiac cath demonstrated patent stents and nonobstructive disease Depression Diabetic polyneuropathy DMII (diabetes mellitus, type 2) GERD (gastroesophageal reflux disease) HTN (hypertension) Ischemic cardiomyopathy DAVID (obstructive sleep apnea) Pulmonary edema Respiratory failure STEMI (ST elevation myocardial infarction) Surgical History History of appendectomy History of carpal tunnel surgery Hx of cholecystectomy No pertinent past surgical history S/P arterial stent S/P FELA (total abdominal hysterectomy) Family History Other Deep vein thrombosis Social History Smoking Status: Former smoker Tobacco Type: Cigarettes Second Hand Exposure: No; Hx Alcohol Use: No Hx Substance Use: No Preferred Language: Bolivian Communication Ability: Effective Visual Impairment: No Limitations Hearing Ability: Normal Manager Salt Required: No Beliefs That Will Affect Care: None marital status: Current Living Situation: Spouse Current Living Situation Comment: The patient states that she lives with her child and their fianc. current occupational status: unemployed How many Children do You have: 3 Other Information That Helps Us Care for You: No Feels Safe at Home: Yes Assistive Devices: Cane Review of Systems Review of Systems: As per HPI, all other systems reviewed and negative Physical Exam Physical Exam: GENERAL: Slightly uncomfortable, slightly anxious, no respiratory distress SKIN: Pallor, warm HEENT: Bespectacled, pale palpebral conjunctivae, no ptosis, dry buccal mucosa, nasal cannula in place NECK : Supple, short neck, no tenderness CHEST : Decreased breath sounds, no tenderness HEART : Tachycardic, no obvious murmurs ABDOMEN: Some distention, nontender EXTREMITIES : No LE swelling/tenderness, no other conspicuous deformities noted NEUROLOGIC : Coherent, no facial asymmetry, no other gross focality Results & Data Results & Data ([facility]) Vital Signs (Past 12 Hours) Vital Signs Temp Pulse Pulse Resp BP BP Pulse Ox 12/03/21 22:00 97 H 15 161/89 H 94 12/03/21 21:17 96 12/03/21 21:16 88 L 12/03/21 21:01 102 H 24 169/89 H 92 12/03/21 20:40 100 H 22 151/79 H 94 12/03/21 18:42 36.7 C 103 H 18 153/81 H 95 O2 Del Method O2 Flow Rate 12/03/21 22:00 2 12/03/21 21:17 Nasal Cannula 2 12/03/21 21:16 Room Air 12/03/21 21:01 Room Air 12/03/21 20:40 Room Air 12/03/21 18:42 Room Air Laboratory Results Laboratory Results WBC 5.68 K/ul (4.8-10.8) 12/03/21 19:15 RBC 2.60 M/uL (3.93-5.22) L 12/03/21 19:15 Hgb 8.0 g/dl (12.0-16.0) L 12/03/21 19:15 Hct 24.5 % (34.1-44.9) L 12/03/21 19:15 MCV 94.2 fL (80.0-100.0) 12/03/21 19:15 MCH 30.8 pg (25.0-34.0) 12/03/21 19:15 MCHC 32.7 g/dL (32.0-36.0) 12/03/21 19:15 RDW Std Deviation 48.1 fL (36.4-46.3) H 12/03/21 19:15 RDW Coeff of Ronaldo 14.1 % (11.5-14.5) 12/03/21 19:15 Plt Count 161 K/uL (130-400) 12/03/21 19:15 MPV 10.0 fL (9.4-12.3) 12/03/21 19:15 Immature Gran % (Auto) 0.7 % 12/03/21 19:15 Neut % (Auto) 86.6 % 12/03/21 19:15 Lymph % (Auto) 7.0 % 12/03/21 19:15 [place] % (Auto) 5.3 % 12/03/21 19:15 Eos % (Auto) 0.2 % 12/03/21 19:15 Baso % (Auto) 0.2 % 12/03/21 19:15 Neut # (Auto) 4.92 K/uL (1.4-6.5) 12/03/21 19:15 Lymph # (Auto) 0.40 K/uL (1.2-3.4) L 12/03/21 19:15 Thurston # (Auto) 0.30 K/uL (0.24-0.82) 12/03/21 19:15 Eos # (Auto) 0.01 K/uL (0-0.50) 12/03/21 19:15 Baso # (Auto) 0.01 K/uL (0-0.2) 12/03/21 19:15 Immature Gran # (Auto) 0.04 K/uL (0.00-0.02) H 12/03/21 19:15 Sodium 135 mmol/L (136-145) L 12/03/21 19:15 Potassium 3.9 mmol/L (3.5-5.1) 12/03/21 19:15 Chloride 102 mmol/L (98-107) 12/03/21 19:15 Carbon Dioxide 24 mmol/L (21-32) 12/03/21 19:15 Anion Gap 9 (3-11) 12/03/21 19:15 BUN 17 mg/dl (6-23) 12/03/21 19:15 Creatinine 0.97 mg/dl (0.6-1.2) 12/03/21 19:15 Est Cr Clr Drug Dosing Not Reportable 12/03/21 19:15 Est GFR ( Amer) 71.5 ml/min 12/03/21 19:15 Est GFR (Non-Af Amer) 61.7 ml/min 12/03/21 19:15 BUN/Creatinine Ratio 17.5 (10-20) 12/03/21 19:15 Glucose 144 mg/dl (70-99(Fasting)) H 12/03/21 19:15 Calcium 8.9 mg/dl (8.5-10.1) 12/03/21 19:15 Magnesium 1.3 mg/dl (1.7-2.4) L 12/03/21 19:15 Total Bilirubin 0.5 mg/dl (0.2-1.0) 12/03/21 19:15 AST 15 U/L (13-39) 12/03/21 19:15 ALT 5 U/L (7-52) L 12/03/21 19:15 Alkaline Phosphatase 65 U/L (34-104) 12/03/21 19:15 B-Natriuretic Peptide 3169 pg/ml (0-100) H 12/03/21 22:31 Total Protein 6.8 gm/dl (6.0-8.3) 12/03/21 19:15 Albumin 3.8 gm/dl (3.4-5.0) 12/03/21 19:15 Globulin 3.0 gm/dl (2.5-4.0) 12/03/21 19:15 Albumin/Globulin Ratio 1.3 (0.9-2) 12/03/21 19:15 Lipase 11 U/L (11-82) 12/03/21 19:15 SARS-CoV-2 (PCR) POSITIVE (Negative) A* 12/03/21 19:15 Influenza Type A (PCR) Negative (Neg) 12/03/21 19:15 Influenza Type B (PCR) Negative (Neg) 12/03/21 19:15 RSV (RT-PCR) Negative (Neg) 12/03/21 19:15 Impressions Chest X-Ray 12/03/21 18:44 XR chest 1V portable CLINICAL HISTORY: cough TECHNIQUE: Single frontal radiograph of the chest was obtained. Comparison: Comparison is made to chest radiograph 07/22/2021 FINDINGS: Pacemaker defibrillator is seen. Cardiomegaly is noted. Prominence and cephalization of the vasculature is seen. No evidence of pleural effusion or pneumothorax. IMPRESSION: Cardiomegaly with mild pulmonary edema. Interval resolution of previously noted bibasilar opacities. ACT 112: Negative or not required by law. Electronically signed by: Hung Hudson M.D. 12/03/2021 8:04 PM Diagnostic Findings EKG as per my interpretation : Rate 100, NSR, LAD, LAFB, RBBB, septal infarct, T wave abnormalities inferior leads
[2021-12-03] MEDS: MAGNESIUM SULFATE / D5W 1 GM/100 ML BAG IV SCH (23:29)
[2021-12-04] MEDS ORDERED: FUROSEMIDE 40 MG/4 ML VIAL IV ONE (00:12)
--- NOTE | 2021-12-04 00:18 | Emergency Department Note ---
History of Present Illness General Chief Complaint: Vomiting Stated Complaint: FATIGUE, CONGESTED, FEVER, DIARRHEA, VOMIT Time Seen by Provider: 12/03/21 20:54 History of Present Illness Provider Complaint: + fever, + cough, + rhinorrhea and + nasal congestion Onset (ago): 2 day(s) Relieved By: + nothing Exacerbated By: + nothing Able to tolerate fluids by mouth: Yes Associated symptoms: + fever, + chills, + myalgias, + nasal congestion, + sore throat, + cough, + nausea, + vomiting and + diarrhea; no chest pain, no abdominal pain or no dysuria Home Medications Medication Instructions Recorded Confirmed Type aspirin 81 mg tablet,delayed 81 mg PO QAM 60 days #30 tabs 07/25/21 Rx release (Kyle Low Dose Aspirin) atorvastatin 80 mg tablet (Lipitor) 80 mg PO HS 60 days #30 tabs 07/25/21 Rx ezetimibe 10 mg tablet 10 mg PO DAILY 60 days #30 tabs 07/25/21 Rx famotidine 20 mg tablet (Pepcid) 20 mg PO BID 30 days #60 tabs 07/25/21 07/20/21 Rx gabapentin 100 mg capsule 200 mg PO TID 60 days #180 caps 07/25/21 Rx lisinopril 20 mg tablet 20 mg PO DAILY 60 days #30 tabs 07/25/21 Rx metformin 500 mg tablet,extended 500 mg PO BIDM 60 days #60 tabs 07/25/21 Rx release 24 hr metoprolol succinate 50 mg 50 mg PO BID 60 days #60 tabs 07/25/21 Rx tablet,extended release 24 hr nitroglycerin 0.4 mg sublingual 0.4 mg sublingual UD PRN Chest 07/25/21 Rx tablet (Nitrostat) Pain 60 days #90 tabs oxybutynin chloride 5 mg tablet 5 mg PO DAILY 60 days #30 tabs 07/25/21 Rx pantoprazole 20 mg tablet,delayed 20 mg PO DAILY 60 days #30 tabs 07/25/21 Rx release (Protonix) sertraline 100 mg tablet (Zoloft) 100 mg PO QAM 60 days #30 tabs 07/25/21 Rx ticagrelor 90 mg tablet (Brilinta) 90 mg PO BID #60 tabs 07/25/21 Rx torsemide 10 mg tablet 10 mg PO DAILY 60 days #30 tabs 07/25/21 Rx Allergies Allergy/AdvReac Type Severity Reaction Status Date / Time hydrocodone Allergy Intermediate Hives Verified 12/03/21 23:38 milk Allergy Intermediate Hives Verified 12/03/21 23:38 pine nut Allergy Intermediate Hives Verified 12/03/21 23:38 empagliflozin AdvReac Intermediate DIARRHEA--PER Verified 12/03/21 23:38 [From Jardiance] GMG lactose AdvReac Intermediate Gastrointestinal Verified 12/03/21 23:38 Upset semaglutide AdvReac Intermediate Diarrhea Verified 12/03/21 23:38 vaccine adjuvant system, AdvReac Intermediate LETHARGIC, Verified 12/03/21 23:38 [id number] liposomal PAIN, [From Shingrix (PF)] FATIGUE varicella-zoster virus AdvReac Intermediate LETHARGIC, Verified 12/03/21 23:38 glycoprotein E, recombinant PAIN, [From Shingrix (PF)] FATIGUE Past Med/Surg History Medical History Acute non-ST elevation myocardial infarction (NSTEMI) Anemia Arthritis CAD (coronary artery disease) 02/2020-DORIAN x2 to mid LAD 04/2020 cardiac cath demonstrated patent stents and nonobstructive disease Depression Diabetic polyneuropathy DMII (diabetes mellitus, type 2) GERD (gastroesophageal reflux disease) HTN (hypertension) Ischemic cardiomyopathy DAVID (obstructive sleep apnea) Pulmonary edema Respiratory failure STEMI (ST elevation myocardial infarction) Surgical History History of appendectomy History of carpal tunnel surgery Hx of cholecystectomy No pertinent past surgical history S/P arterial stent S/P FELA (total abdominal hysterectomy) Family History Other Deep vein thrombosis Social History Smoking Status: Never smoker Tobacco Type: Cigarettes Second Hand Exposure: No; Hx Alcohol Use: Yes Alcohol type: wine Hx Substance Use: No Preferred Language: Faroese Communication Ability: Effective Visual Impairment: No Limitations Hearing Ability: Normal Plate Maker Required: No Beliefs That Will Affect Care: None marital status: Current Living Situation: Spouse Current Living Situation Comment: The patient states that she lives with her child and their fianc. current occupational status: unemployed How many Children do You have: 3 Feels Safe at Home: Yes Assistive Devices: Cane Review of Systems A total of 10 systems reviewed and were otherwise negative Physical Exam Vital Signs: Vital Signs - 24 hr 12/03/21 18:42 12/03/21 20:40 12/03/21 21:01 Temperature 36.7 C Temperature Source Temporal Artery Sc an Pulse Rate 103 H 102 H Pulse Rate [Apical ] 100 H Pulse Rate from Sp O2 Sensor 102 H Pulse Rhythm [Apic al] Regular Pulse Strength [Ap ical] Normal Respiratory Rate 18 22 24 Respiratory Effort / Characteristics Non-Labored Sponta neous Non-Labored Sponta neous Respiratory Depth Normal Normal Respiratory Patter n Regular Regular Blood Pressure 153/81 H 169/89 H Blood Pressure [Ri ght Arm] 151/79 H Blood Pressure Lamar n 105 115 Blood Pressure Lamar n [Right Arm] 103 Blood Pressure Pos ition [Right Arm] Sitting Pulse Oximetry 95 94 92 Oxygen Delivery Me thod Room Air Room Air Room Air Oxygen Flow Rate Sepsis Recent Feve r Within 48 Hours No Sepsis New/Unexpla ined Change in Men jocy Status No Sepsis Action Take n by Nursing No Action Required 12/03/21 21:16 12/03/21 21:17 12/03/21 22:00 Temperature Temperature Source Pulse Rate 97 H Pulse Rate [Apical ] Pulse Rate from Sp O2 Sensor 97 H Pulse Rhythm [Apic al] Pulse Strength [Ap ical] Respiratory Rate 15 Respiratory Effort / Characteristics Respiratory Depth Respiratory Patter n Blood Pressure 161/89 H Blood Pressure [Ri ght Arm] Blood Pressure Lamar n 113 Blood Pressure Lamar n [Right Arm] Blood Pressure Pos ition [Right Arm] Pulse Oximetry 88 L 96 94 Oxygen Delivery Me thod Room Air Nasal Cannula Oxygen Flow Rate 2 2 Sepsis Recent Feve r Within 48 Hours Sepsis New/Unexpla ined Change in Men jocy Status Sepsis Action Take n by Nursing 12/03/21 23:18 12/03/21 23:26 12/03/21 23:30 Temperature Temperature Source Pulse Rate 91 H 76 Pulse Rate [Apical ] 94 H Pulse Rate from Sp O2 Sensor Pulse Rhythm [Apic al] Pulse Strength [Ap ical] Respiratory Rate 18 Respiratory Effort / Characteristics Respiratory Depth Respiratory Patter n Blood Pressure 153/79 H 141/85 H Blood Pressure [Ri ght Arm] 153/79 H Blood Pressure Lamar n 103 Blood Pressure Lamar n [Right Arm] 103 Blood Pressure Pos ition [Right Arm] Pulse Oximetry 95 Oxygen Delivery Me thod Nasal Cannula Oxygen Flow Rate 2 Sepsis Recent Feve r Within 48 Hours Sepsis New/Unexpla ined Change in Men jocy Status Sepsis Action Take n by Nursing Physical Exam: Physical Exam GENERAL: She is oriented to person, place, and time. She appears well-developed and well-nourished. She does not appear distressed. HENT: Exam performed. -Head: Normocephalic and atraumatic. -Right Ear: External ear normal. No mastoid tenderness. -Left Ear: External ear normal. No mastoid tenderness. -Mouth/Throat: The oropharynx is clear and moist. No trismus in the jaw. No dental abscesses or uvula swelling. No oropharyngeal exudate or tonsillar abscesses. EYES: Conjunctivae and EOM are normal. Pupils are equal, round, and reactive to light. Right eye exhibits no discharge. Left eye exhibits no discharge. No scleral icterus. NECK: Normal range of motion. Neck supple. No JVD present. No spinous process tenderness present. No carotid bruit present. No rigidity. No tracheal deviation and normal range of motion present. No Brudzinski's sign and no Kernig's sign noted. CV: Normal rate, regular rhythm, normal heart sounds and intact distal pulses. There is no peripheral edema. Palpable radial pulses bue. PULM/CHEST: Rhonchi bilaterally. ABD: The abdomen is soft. Bowel sounds are normal. She has no distension. No mass is present. There is no tenderness. There is no rebound, no guarding, no Villaseñor's sign and no tenderness at McBurney's point. Rovsig negative MUSC/SKEL: Normal range of motion. There is no peripheral edema, tenderness or deformity. LYMPH: No cervical adenopathy. NEURO: She is alert and oriented to person, place, and time. She has normal strength. No cranial nerve deficit or sensory deficit. Coordination and gait normal. GCS eye subscore is 4. GCS verbal subscore is 5. GCS motor subscore is 6. Cerebellar tests wnl. SKIN: Skin is warm and dry. She is not diaphoretic. PSYCH: She has a normal mood and affect. Behavior is normal. Judgment and thought content normal. Course Course 2053: The patient was evaluated in room C10. A complete history and physical exam was performed Administered Medications Magnesium Sulfate/Dextrose (Magnesium Sulfate / D5w) 1 gm in 100 mls @ 50 mls/hr IV Q2H GLYNN Stop: 12/04/21 04:29 Last Admin: 12/03/21 23:29 Dose: 50 mls/hr Documented By: Discontinued Medications Dexamethasone (Dexamethasone Sod Inj 4 Mg/Ml Vial) Confirm Administered Dose 8 mg .ROUTE .STK-MED ONE Stop: 12/03/21 21:35 Last Admin: 12/03/21 21:36 Dose: 6 mg Documented By: Dexamethasone 6 mg/ Syringe 1.5 mls @ 1 mls/min IV ONE ONE Stop: 12/03/21 21:19 Last Admin: 12/03/21 21:39 Dose: Not Given Documented By: Ipratropium [place]one (Ipratropium [place] Neb Soln 0.02% 2.5 Ml Vial) 0.5 mg INH NOW STA Stop: 12/03/21 22:18 Last Admin: 12/03/21 23:21 Dose: 0.5 mg Documented By: Levalbuterol HCl (Levalbuterol 1.25mg/0.5ml Neb) 1.25 mg INH NOW STA Stop: 12/03/21 22:18 Last Admin: 12/03/21 23:21 Dose: 1.25 mg Documented By: Metoprolol Tartrate (Metoprolol Tartrate 1 Mg/Ml Vial) 2.5 mg IV NOW STA Stop: 12/03/21 22:14 Last Admin: 12/03/21 23:26 Dose: 2.5 mg Documented By: Potassium Chloride (Potassium Chloride Pwd 20 Meq Pack) 40 meq PO NOW STA Stop: 12/03/21 22:15 Last Admin: 12/03/21 23:21 Dose: 40 meq Documented By: Medical Decision Making Laboratory Data Result diagrams: 12/03/21 19:15 12/03/21 19:15 Lab Results 12/03/21 12/03/21 12/03/21 Range/Units 19:15 19:15 19:15 WBC 5.68 (4.8-10.8) K/ul RBC 2.60 L (3.93-5.22) M/uL Hgb 8.0 L (12.0-16.0) g/dl Hct 24.5 L (34.1-44.9) % MCV 94.2 (80.0-100.0) fL MCH 30.8 (25.0-34.0) pg MCHC 32.7 (32.0-36.0) g/dL RDW Std Deviation 48.1 H (36.4-46.3) fL RDW Coeff of Ronaldo 14.1 (11.5-14.5) % Plt Count 161 (130-400) K/uL MPV 10.0 (9.4-12.3) fL Immature Gran % (Auto) 0.7 % Neut % (Auto) 86.6 % Lymph % (Auto) 7.0 % Amelia % (Auto) 5.3 % Eos % (Auto) 0.2 % Baso % (Auto) 0.2 % Neut # (Auto) 4.92 (1.4-6.5) K/uL Lymph # (Auto) 0.40 L (1.2-3.4) K/uL Amelia # (Auto) 0.30 (0.24-0.82) K/uL Eos # (Auto) 0.01 (0-0.50) K/uL Baso # (Auto) 0.01 (0-0.2) K/uL Immature Gran # (Auto) 0.04 H (0.00-0.02) K/uL Sodium 135 L (136-145) mmol/L Potassium 3.9 (3.5-5.1) mmol/L Chloride 102 (98-107) mmol/L Carbon Dioxide 24 (21-32) mmol/L Anion Gap 9 (3-11) BUN 17 (6-23) mg/dl Creatinine 0.97 (0.6-1.2) mg/dl Est Cr Clr Drug Dosing Not Reportable Est GFR ( Amer) 71.5 ml/min Est GFR (Non-Af Amer) 61.7 ml/min BUN/Creatinine Ratio 17.5 (10-20) Glucose 144 H (70-99(Fasting)) mg/dl Calcium 8.9 (8.5-10.1) mg/dl Magnesium 1.3 L (1.7-2.4) mg/dl Total Bilirubin 0.5 (0.2-1.0) mg/dl AST 15 (13-39) U/L ALT 5 L (7-52) U/L Alkaline Phosphatase 65 (34-104) U/L B-Natriuretic Peptide (0-100) pg/ml Total Protein 6.8 (6.0-8.3) gm/dl Albumin 3.8 (3.4-5.0) gm/dl Globulin 3.0 (2.5-4.0) gm/dl Albumin/Globulin Ratio 1.3 (0.9-2) Lipase 11 (11-82) U/L SARS-CoV-2 (PCR) POSITIVE A* (Negative) Influenza Type A (PCR) Negative (Neg) Influenza Type B (PCR) Negative (Neg) RSV (RT-PCR) Negative (Neg) 12/03/21 Range/Units 22:31 WBC (4.8-10.8) K/ul RBC (3.93-5.22) M/uL Hgb (12.0-16.0) g/dl Hct (34.1-44.9) % MCV (80.0-100.0) fL MCH (25.0-34.0) pg MCHC (32.0-36.0) g/dL RDW Std Deviation (36.4-46.3) fL RDW Coeff of Ronaldo (11.5-14.5) % Plt Count (130-400) K/uL MPV (9.4-12.3) fL Immature Gran % (Auto) % Neut % (Auto) % Lymph % (Auto) % Amelia % (Auto) % Eos % (Auto) % Baso % (Auto) % Neut # (Auto) (1.4-6.5) K/uL Lymph # (Auto) (1.2-3.4) K/uL Amelia # (Auto) (0.24-0.82) K/uL Eos # (Auto) (0-0.50) K/uL Baso # (Auto) (0-0.2) K/uL Immature Gran # (Auto) (0.00-0.02) K/uL Sodium (136-145) mmol/L Potassium (3.5-5.1) mmol/L Chloride (98-107) mmol/L Carbon Dioxide (21-32) mmol/L Anion Gap (3-11) BUN (6-23) mg/dl Creatinine (0.6-1.2) mg/dl Est Cr Clr Drug Dosing Est GFR ( Amer) ml/min Est GFR (Non-Af Amer) ml/min BUN/Creatinine Ratio (10-20) Glucose (70-99(Fasting)) mg/dl Calcium (8.5-10.1) mg/dl Magnesium (1.7-2.4) mg/dl Total Bilirubin (0.2-1.0) mg/dl AST (13-39) U/L ALT (7-52) U/L Alkaline Phosphatase (34-104) U/L B-Natriuretic Peptide 3169 H (0-100) pg/ml Total Protein (6.0-8.3) gm/dl Albumin (3.4-5.0) gm/dl Globulin (2.5-4.0) gm/dl Albumin/Globulin Ratio (0.9-2) Lipase (11-82) U/L SARS-CoV-2 (PCR) (Negative) Influenza Type A (PCR) (Neg) Influenza Type B (PCR) (Neg) RSV (RT-PCR) (Neg) ECG Data Additional Comments: Tachycardia with rate of 100. MS 128 QRS 140 QTC 510. bifascicular block present. MDM Narrative Cardiac monitoring: An order was placed for continuous cardiac monitoring. The monitor shows a rate of 100 with sinus rhythm Patient was found to be 8089% on room air. 2 L nasal cannula replaced on the patient. Patient was seen during a time of extreme volume and extreme acuity in the emergency department. Nursing triage protocols were initiated and labs were salbador wn by protocol in the triage area. Labs are within normal limits with the exception of the patient being COVID- positive. Patient be treated with Decadron 6 mg IV push and then [facility] will be [facility]. Impression & Plan Hypoxia, COVID-19 Critical Care Time Critical Care Time: Yes Total Critical Care Time: 46 I have personally spent greater than 46 minutes of critical care time in the direct management of this patient. This includes bedside care, interpretation of diagnostic studies, and testing, discussion with consultants, patient, and family members, and other required patient management activities. This 46 minutes is in excess of all separately billable procedures. Discharge Plan Visit Data Chief Complaint: Vomiting Stated Complaint: FATIGUE, CONGESTED, FEVER, DIARRHEA, VOMIT ED Provider: Samson Richardson Discharge Problem: Hypoxia, COVID-19 Patient Disposition: Admitted As Inpatient Forms Stand Alone Forms: My [facility] Prescriptions Prescriptions: No Action metoprolol succinate 50 mg Tablet Extended Release 24 Hr 50 mg PO BID 60 Days Qty: 60 1RF lisinopril 20 mg Tablet 20 mg PO DAILY 60 Days Qty: 30 1RF atorvastatin [Lipitor] 80 mg Tablet 80 mg PO HS 60 Days Qty: 30 1RF sertraline [Zoloft] 100 mg tablet 100 mg PO QAM 60 Days Qty: 30 1RF torsemide 10 mg tablet 10 mg PO DAILY 60 Days Qty: 30 1RF Rx Instructions: MAY TAKE ADDITIONAL DOSE IF NEEDED aspirin [Kyle Low Dose Aspirin] 81 mg Tablet,Delayed Release (Dr/Ec) 81 mg PO QAM 60 Days Qty: 30 1RF pantoprazole [Protonix] 20 mg tablet,delayed release (DR/EC) 20 mg PO DAILY 60 Days Qty: 30 1RF famotidine [Pepcid] 20 mg Tablet 20 mg PO BID 30 Days Qty: 60 0RF nitroglycerin [Nitrostat] 0.4 mg tablet, sublingual 0.4 mg sublingual UD PRN (Reason: Chest Pain) 60 Days Qty: 90 1RF gabapentin 100 mg capsule 200 mg PO TID 60 Days Qty: 180 1RF oxybutynin chloride 5 mg Tablet 5 mg PO DAILY 60 Days Qty: 30 1RF metformin 500 mg tablet extended release 24 hr 500 mg PO BIDM 60 Days Qty: 60 1RF ezetimibe 10 mg tablet 10 mg PO DAILY 60 Days Qty: 30 1RF Brilinta 90 mg Tablet 90 mg PO BID Qty: 60 1RF Referrals Referrals: Scarlett Pires MD [Primary Care Provider] -
[2021-12-04] MEDS ORDERED: GLUCOSE 10 TAB/TUBE PO PRN (01:15)
[2021-12-04] MEDS ORDERED: PROMETHAZINE HCL 6.25 MG in SODIUM CHLORIDE 0.9% 50 ML IV PRN (01:15)
[2021-12-04] MEDS ORDERED: GLUCOSE 40% GEL 15 GM TUBE PO PRN (01:15)
[2021-12-04] MEDS ORDERED: GLUCAGON FOR INJ 1 MG VIAL SQ PRN (01:15)
[2021-12-04] MEDS ORDERED: DEXTROSE 50% 50 ML SYRINGE IV PRN (01:15)
[2021-12-04] MEDS ORDERED: ACETAMINOPHEN 325 MG TAB PO PRN (01:15)
[2021-12-04] MEDS ORDERED: CARBOHYDRATES FOR HYPOGLYCEMIA PO PRN (01:15)
[2021-12-04] MEDS: INSULIN ASPART PER UNIT SC SCH ×5 (02:03→21:53)
[2021-12-04] MEDS: LANTUS PER UNIT CHARGE SQ SCH ×2 (02:04→21:53)
[2021-12-04] MEDS: TICAGRELOR 90 MG TAB PO SCH ×3 (02:19→21:54)
[2021-12-04] MEDS: MAGNESIUM SULFATE / D5W 1 GM/100 ML BAG IV SCH ×2 (02:20→04:23)
[2021-12-04 02:42] LABS: Appearance Urine Clear (Clear); Bacteria Urine Automated Negative (Negative); Bilirubin Urine Negative (Negative); Blood Urine 2+ (Negative); Color Urine Yellow; Epithelial Cell Urine Auto 20-30 /lpf (0-5); Glucose Urine UA Negative (Negative); Ketones Urine Trace (Negative); Leukocyte Esterase Urine 2+ (Negative); Nitrite Urine Negative (Negative); Protein Urine 3+ (Negative); RBC Urine Automated 0-4 /hpf (0-4); Specific Gravity Urine 1.007 (1.000-1.030); Urobilinogen Urine Negative (Negative)
[2021-12-04] MEDS: guaiFENesin 600 MG TABCR PO SCH ×3 (04:20→21:53)
[2021-12-04 06:06] LABS: Hematocrit (blood only) 23.7 % (34.1-44.9); Hemoglobin 7.7 g/dl (12.0-16.0); Immature Granulocytes # (auto) 0.03 K/uL (0.00-0.02); Immature Granulocytes % (auto) 0.8 %; Lymphocytes # (auto) 0.24 K/uL (1.2-3.4); Lymphocytes % (auto) 6.7 %; Mean Corpuscular Hemoglobin 30.6 pg (25.0-34.0); Mean Corpuscular Hgb Conc 32.5 g/dL (32.0-36.0); Mean Platelet Volume 10.4 fL (9.4-12.3); Monocytes # (auto) 0.12 K/uL (0.24-0.82); Monocytes % (auto) 3.3 %; Neutrophils # (auto) 3.21 K/uL (1.4-6.5); Neutrophils % (auto) 89.2 %; Platelet Count 141 K/uL (130-400); Red Blood Count 2.52 M/uL (3.93-5.22)
[2021-12-04 06:37] LABS: BUN Creatinine Ratio 17.3 (10-20); Calcium 8.7 mg/dl (8.5-10.1); Creatinine Clr Calc Pharmacy 52.6 ml/min; Est GFR (African American) 65.8 ml/min; Est GFR (Non-African American) 56.7 ml/min; Magnesium 2.1 mg/dl (1.7-2.4)
[2021-12-04 06:55] LABS: ALC (manual) 0.29 K/uL (1.2-3.4); ANC (manual) 3.24 K/uL (1.4-6.5); Acanthocytes 1+; Giant Platelets 1+; Lymphocytes # (manual) 0.29 K/uL (1.2-3.4); Lymphocytes % (manual) 8 %; Metamyelocytes # (manual) 0.11 K/uL (0-0); Metamyelocytes % (manual) 3 %; Neutrophils # (manual) 3.24 K/uL (1.4-6.5); Neutrophils % (manual) 90 %; Platelet Estimate Normal (Normal)
[2021-12-04] MEDS: ASPIRIN 81 MG ECTAB PO SCH (07:53)
[2021-12-04] MEDS: EZETIMIBE 10 MG TABLET PO SCH (07:53)
[2021-12-04] MEDS: SERTRALINE HCL 100 MG TABLET PO SCH (07:53)
[2021-12-04] MEDS: FAMOTIDINE 20 MG TAB PO SCH ×2 (07:54→21:53)
[2021-12-04] MEDS: PANTOprazole 40 MG TAB PO SCH (07:54)
[2021-12-04] MEDS: dexAMETHasone 6 MG in SYRINGE 0 ML IV SCH (07:54)
[2021-12-04] MEDS: ENOXAPARIN INJ 30 MG/0.3 ML SYR SQ SCH (07:54)
[2021-12-04 09:27] LABS: Ferritin 118.5 ng/ml (8-388)
[2021-12-04 09:30] LABS: Folate (Folic Acid) 13.48 ng/ml (>5.38)
--- NOTE | 2021-12-04 13:49 | Hospitalist Progress Note ---
Date of Service December 04, 2021 Assessment & Plan (1) Hypoxia: (2) COVID-19: Plan 66-year-old lady with history of chronic systolic heart failure [EF 35% on 2021 TTE], status post ICD, CAD status post stent, HTN, HLD, DM2 on oral meds, chronic anemia [baseline hemoglobin 8-9], GERD, mood disorder, past tobacco abuse presented to the hospital with 2-day history of dry cough without chest pain or shortness of breath and found to be COVID-positive. Patient states that she has gotten 2 COVID-19 vaccination. SPO2 on room air was 88% in the ER. She is being managed for the following: Acute Hypoxia Pneumonia due to COVID-19 virus infection Mild exacerbation of systolic heart failure Patient presenting with cough, nausea, vomiting, diarrhea since 2 days Patient has received vaccination against COVID-19 2 times. Admitting COVID test positive, admitting BNP elevated at 3169, admitting CXR with mild pulmonary edema. Patient reports improvement in her nausea/vomiting/diarrhea, reports cough around the same, reports feeling better. 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 Incentive spirometer, supportive care. Pt on RA, stable respiratory [place]. Chronic anemia, complicated w/ iron/vitamin def: Iron profile suggestive of iron deficiency, vitamin B12 deficient, folate level normal. Patient started on supplements. Other chronic medical conditions: CAD status post stent, HTN, HLD, DM2 on oral meds, past tobacco abuse --->>> continue with/resume home meds as and when appropriate. Patient takes Entresto and torsemide and metoprolol ER 50 Mg daily per outpatient cardiology note 11/09/2021. Patient does not take lisinopril. DVT prophylaxis: Lovenox subcu Full code Patient's daughter Caroline Sandoval [[phone]] Admission and Anticipated Discharge Date Admission Date: December 03, 2021 Subjective Patient seen and examined at bedside for follow-up of acute hypoxemic respiratory failure, COVID-19 pneumonia, chronic anemia complicated with iron deficiency. Patient was sitting up in chair, on room air, NAD, reports improvement in her nausea and vomiting after coming to the hospital, denies any new acute events overnight, tolerating clear liquids well, advance diet as tolerated, reports cough around the same, denies any mucus production with cough. Patient denies any headache/dizziness/chest pain/palpitations/belly pain/other review of symptoms. Physical Exam Physical Exam: GENERAL: Alert and oriented x3. NAD, on RA. HEENT: No pallor, no icterus. Pupils equal, round and reactive to light. Oral mucosa moist. NECK: No JVD, no neck masses. HEART: S1 and S2 heard. Regular rate and rhythm. No murmur, no gallop. RESPIRATORY SYSTEM: Normal AP diameter. No accessory muscle use. No wheezing, no crackles. ABDOMEN: Soft, bowel sounds present, nontender, no distention. CENTRAL NERVOUS SYSTEM: No facial droop. Speech is clear. Obeys simple commands. Moves extremities. EXTREMITIES: No edema, no erythema seen. Results & Data Results & Data ([facility]) Vital Signs (Past 12 Hours) Vital Signs Temp Pulse Resp BP Pulse Ox O2 Del Method 12/04/21 12:07 36.3 C L 62 18 134/76 97 Room Air 12/04/21 10:36 36.8 C 81 18 133/75 95 Room Air 12/04/21 08:00 Room Air 12/04/21 07:50 36.6 C 64 18 137/75 96 Room Air 12/04/21 03:48 36.7 C 85 18 135/72 95 Room Air
--- NOTE | 2021-12-04 13:57 | Electrocardiogram Report ---
Test Reason : Blood Pressure : / mmHG Vent. Rate : 100 BPM Atrial Rate : 100 BPM P-R Int : 128 ms QRS Dur : 140 ms QT Int : 396 ms P-R-T Axes : 066 -71 030 degrees QTc Int : 510 ms Normal sinus rhythm Right bundle branch block Left anterior fascicular block Bifascicular block Septal infarct (cited on or before 20-JUL-2021) Abnormal ECG When compared with ECG of 21-JUL-2021 04:09, Vent. rate has increased BY 40 BPM Questionable change in initial forces of Septal leads T wave inversion no longer evident in Inferior leads T wave inversion no longer evident in Lateral leads Confirmed by Eze Marcus ([id number]) on 12/04/2021 1:57:13 PM Referred By: REFERRED SELF Confirmed By:Eze Marcus
[2021-12-04 14:31] LABS: Hematocrit (blood only) 22.2 % (34.1-44.9); Hemoglobin 7.3 g/dl (12.0-16.0)
[2021-12-04] MEDS: FERROUS SULFATE 325 MG TAB PO SCH (15:06)
[2021-12-04] MEDS: CYANOCOBALAMIN (B-12) 500 MCG TABLET PO SCH (15:06)
[2021-12-04] MEDS: FOLIC ACID 1 MG TAB PO SCH (15:06)
[2021-12-04] MEDS ORDERED: ATORVASTATIN 40 MG TAB PO SCH (21:00)
[2021-12-04] MEDS: VALSARTAN/SACUBITRIL 26/24MG TAB PO SCH (21:54)
[2021-12-05 07:57] LABS: Hemoglobin 7.8 g/dl (12.0-16.0); Mean Corpuscular Hemoglobin 31.1 pg (25.0-34.0); Mean Corpuscular Hgb Conc 33.9 g/dL (32.0-36.0); Mean Corpuscular Volume 91.6 fL (80.0-100.0); Mean Platelet Volume 10.5 fL (9.4-12.3); Platelet Count 155 K/uL (130-400); RDW Coefficient of Variation 14.2 % (11.5-14.5); RDW Standard Deviation 48.6 fL (36.4-46.3); Red Blood Count 2.51 M/uL (3.93-5.22); White Blood Count 5.05 K/ul (4.8-10.8)
[2021-12-05] MEDS: INSULIN ASPART PER UNIT SC SCH ×2 (08:24→12:19)
[2021-12-05 08:27] LABS: BUN Creatinine Ratio 29.4 (10-20); Calcium 8.7 mg/dl (8.5-10.1); Creatinine Clr Calc Pharmacy 50.1 ml/min; Est GFR (African American) 62.1 ml/min; Est GFR (Non-African American) 53.6 ml/min; Phosphorus 3.9 mg/dl (2.5-4.9); Potassium 4.5 mmol/L (3.5-5.1)
[2021-12-05] MEDS: VALSARTAN/SACUBITRIL 26/24MG TAB PO SCH (08:37)
[2021-12-05] MEDS: EZETIMIBE 10 MG TABLET PO SCH (08:38)
[2021-12-05] MEDS: SERTRALINE HCL 100 MG TABLET PO SCH (08:38)
[2021-12-05] MEDS: ASPIRIN 81 MG ECTAB PO SCH (08:38)
[2021-12-05] MEDS: CYANOCOBALAMIN (B-12) 500 MCG TABLET PO SCH (08:38)
[2021-12-05] MEDS: TICAGRELOR 90 MG TAB PO SCH (08:39)
[2021-12-05] MEDS: PANTOprazole 40 MG TAB PO SCH (08:39)
[2021-12-05] MEDS: ENOXAPARIN INJ 30 MG/0.3 ML SYR SQ SCH (08:39)
[2021-12-05] MEDS: guaiFENesin 600 MG TABCR PO SCH (08:39)
[2021-12-05] MEDS: FAMOTIDINE 20 MG TAB PO SCH (08:39)
[2021-12-05] MEDS: FERROUS SULFATE 325 MG TAB PO SCH (08:39)
[2021-12-05] MEDS: FOLIC ACID 1 MG TAB PO SCH (08:39)
[2021-12-05] MEDS: dexAMETHasone 6 MG in SYRINGE 0 ML IV SCH (08:40)
[2021-12-05] MEDS ORDERED: TORSEMIDE 10 MG TAB PO SCH (09:00)
[2021-12-05] MEDS ORDERED: METOPROLOL SUCC 50MG EXT REL TAB PO SCH (09:00)
--- NOTE | 2021-12-05 15:18 | Discharge Summary ---
Date of Service December 05, 2021 Admission HPI Per Admitting Provider History obtained from patient, family, and records. Medical history significant for chronic systolic heart failure (EF 35%, TTE 2021) status post ICD, CAD status post stent, hypertension, hyperlipidemia, DM2 on oral medications, GERD, chronic anemia (baseline hemoglobin of 8-9), mood disorder, past tobacco abuse. Last confinement July 2021 for decompensated heart failure. 2 days history of dry cough symptoms without chest pain or SOB. Patient with nausea vomiting, watery diarrhea symptoms without abdominal pain. Denies fluid retention. Increasing weakness. Possible sick contacts at home. Patient comp leted COVID-19 vaccination. Denies fluid retention. O2 sats 88 on room air at some point during ER stay. Decadron given at the ER. 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 Admission Exam Per Admitting Provider GENERAL: Slightly uncomfortable, slightly anxious, no respiratory distress SKIN: Pallor, warm HEENT: Bespectacled, pale palpebral conjunctivae, no ptosis, dry buccal mucosa, nasal cannula in place NECK : Supple, short neck, no tenderness CHEST : Decreased breath sounds, no tenderness HEART : Tachycardic, no obvious murmurs ABDOMEN: Some distention, nontender EXTREMITIES : No LE swelling/tenderness, no other conspicuous deformities noted NEUROLOGIC : Coherent, no facial asymmetry, no other gross focality Principal Diagnosis COVID19 pneumonia Discharge Exam GENERAL: resting comfortably, NAD on RA SKIN: no erythema or bruising, wounds. Well perfused HEENT: no ptosis, MMM, no erythema NECK : Supple, short neck, no tenderness CHEST : CTAB, no tenderness HEART : RRR, no obvious murmurs ABDOMEN: Some distention, nontender EXTREMITIES : No LE swelling/tenderness, no other conspicuous deformities noted NEUROLOGIC : Coherent, no facial asymmetry, no other gross focality Discharge Data Allergies Allergy/AdvReac Type Severity Reaction Status Date / Time hydrocodone Allergy Intermediate Hives Verified 12/03/21 23:38 milk Allergy Intermediate Hives Verified 12/03/21 23:38 pine nut Allergy Intermediate Hives Verified 12/03/21 23:38 empagliflozin AdvReac Intermediate DIARRHEA--PER Verified 12/03/21 23:38 [From Jardiance] GMG lactose AdvReac Intermediate Gastrointestinal Verified 12/03/21 23:38 Upset semaglutide AdvReac Intermediate Diarrhea Verified 12/03/21 23:38 vaccine adjuvant system, AdvReac Intermediate LETHARGIC, Verified 12/03/21 23:38 AS01B liposomal PAIN, [From Shingrix (PF)] FATIGUE varicella-zoster virus AdvReac Intermediate LETHARGIC, Verified 12/03/21 23:38 glycoprotein E, recombinant PAIN, [From Shingrix (PF)] FATIGUE Consultations 12/03/21 21:41 ED Decision to Admit Stat Hospital Course (1) Hypoxia: (2) COVID-19: Plan 66-year-old lady with history of chronic systolic heart failure [EF 35% on 2021 TTE], status post ICD, CAD status post stent, HTN, HLD, DM2 on oral meds, chronic anemia [baseline hemoglobin 8-9], GERD, mood disorder, past tobacco abuse presented to the hospital with 2-day history of dry cough without chest pain or shortness of breath and found to be COVID-positive. Patient states that she has gotten 2 COVID-19 vaccination. SPO2 on room air was 88% in the ER. She is being managed for the following: Acute Hypoxia Pneumonia due to COVID-19 virus infection Mild exacerbation of systolic heart failure Patient presenting with cough, nausea, vomiting, diarrhea since 2 days Patient has received vaccination against COVID-19 2 times. Admitting COVID test positive, admitting BNP elevated at 3169, admitting CXR with mild pulmonary edema. Patient reports improvement in her nausea/vomiting/diarrhea, reports cough around the same, reports feeling better. Patient is on dexamethasone, had denied remdesivir at admission Incentive spirometer, supportive care. Pt on RA, stable respiratory [place] - symptoms much improved Stable for discharge Chronic anemia, complicated w/ iron/vitamin def: Iron profile suggestive of iron deficiency, vitamin B12 deficient, folate level normal. Patient started on sup plements. Other chronic medical conditions: CAD status post stent, HTN, HLD, DM2 on oral meds, past tobacco abuse --->>> continue with/resume home meds as and when appropriate. Patient takes Entresto and torsemide and metoprolol ER 50 Mg daily per outpatient cardiology note 11/09/2021. Patient does not take lisinopril. DVT prophylaxis: Lovenox subcu Full code Patient's daughter Caroline Sandoval [[phone]] Total Time Total Time Spent Total Time Spent (In Minutes): 21 Total Time Includes: Examination of the Patient, Discharge Planning and Medication Reconciliation Discharge Plan Discharge Items Patient Disposition: Home - Self-Care Reason For Visit: RESP FAILURE, COVID Discharge Diagnosis: COVID19 Activity: Resume your previous activity Non-emergency contact: Primary Care Provider Call non-emergency contact if: you have any medication questions, your symptoms worsen and you have a fever Follow-up/Referrals: Scarlett Pires MD [Primary Care Provider] - (Date & Time 12/14/2021 12:00 PM Provider Scarlett Devries MD Department Family Medicine [facility] ) Diet: Carb Consistent or DM2 and Heart Healthy Addtl Attending Provider Instructions: You were admitted for symptomatic COVID19 infection requiring oxygen. You were started on dexamethasone and showed improvement. You were off oxgyen and seen by PT/OT and were ok for discharge home when stable. You remained stable off oxygen and symptoms improved. Pleae follow up with Primary care doctor within a week of discharge and finish full 10 day course of dexamethasone 6mg daily. Pending Studies at Discharge: No Stand-Alone Forms: My [facility] [employer], Smoking Cessation Medications and DC Order Prescriptions: New ferrous sulfate 325 mg (65 mg iron) Tablet,Delayed Release (Dr/Ec) 325 mg PO QAM Qty: 30 0RF cyanocobalamin (vitamin B-12) 500 mcg Tablet 500 mcg PO QAM Qty: 30 0RF folic acid 1 mg Tablet 1 mg PO QAM Qty: 30 0RF dexamethasone 6 mg tablet 6 mg PO DAILY Qty: 7 0RF Continued metoprolol succinate 50 mg Tablet Extended Release 24 Hr 50 mg PO BID 60 Days Qty: 60 1RF lisinopril 20 mg Tablet 20 mg PO DAILY 60 Days Qty: 30 1RF atorvastatin [Lipitor] 80 mg Tablet 80 mg PO HS 60 Days Qty: 30 1RF sertraline [Zoloft] 100 mg tablet 100 mg PO QAM 60 Days Qty: 30 1RF torsemide 10 mg tablet 10 mg PO DAILY 60 Days Qty: 30 1RF Rx Instructions: MAY TAKE ADDITIONAL DOSE IF NEEDED aspirin [Kyle Low Dose Aspirin] 81 mg Tablet,Delayed Release (Dr/Ec) 81 mg PO QAM 60 Days Qty: 30 1RF pantoprazole [Protonix] 20 mg tablet,delayed release (DR/EC) 20 mg PO DAILY 60 Days Qty: 30 1RF famotidine [Pepcid] 20 mg Tablet 20 mg PO BID 30 Days Qty: 60 0RF nitroglycerin [Nitrostat] 0.4 mg tablet, sublingual 0.4 mg sublingual UD PRN (Reason: Chest Pain) 60 Days Qty: 90 1RF gabapentin 100 mg capsule 200 mg PO TID 60 Days Qty: 180 1RF oxybutynin chloride 5 mg Tablet 5 mg PO DAILY 60 Days Qty: 30 1RF metformin 500 mg tablet extended release 24 hr 500 mg PO BIDM 60 Days Qty: 60 1RF ezetimibe 10 mg tablet 10 mg PO DAILY 60 Days Qty: 30 1RF Brilinta 90 mg Tablet 90 mg PO BID Qty: 60 1RF Entresto 24-26 mg tablet 1 tab PO BID Discharge Orders: Discharge Order (Routine); Ordered 12/05/21 Ordered By: Jose Roberto Acevedo Admission Data Admit Date/Time: 12/03/21 23:08 Attending Provider: Jose Roberto Acevedo Admit Provider: Lamin Weeks Primary Care Provider: Scarlett Pires Other Providers: Lamin Weeks Other Interventions: Discharge Summary Assessment (RN) Last Done: 12/05/21 12:49
== END 2021-12-05 13:27 | disposition home or self-care (01) | DRG 177 ==
LOC: ED 18:29 → 2S 23:08 → SUATTDRO 23:08 → 2S 12-04 00:28

== ENCOUNTER 2021-12-10 18:17 | Inpatient (IN) ==
[2021-12-10 21:15] LABS: Basophils # (auto) 0.01 K/uL (0-0.2); Basophils % (auto) 0.2 %; Hematocrit (blood only) 30.9 % (34.1-44.9); Immature Granulocytes # (auto) 0.09 K/uL (0.00-0.02); Immature Granulocytes % (auto) 1.5 %; Lymphocytes # (auto) 0.79 K/uL (1.2-3.4); Lymphocytes % (auto) 13.1 %; Mean Corpuscular Hemoglobin 30.4 pg (25.0-34.0); Mean Corpuscular Hgb Conc 32.4 g/dL (32.0-36.0); Mean Corpuscular Volume 93.9 fL (80.0-100.0); Mean Platelet Volume 10.4 fL (9.4-12.3); Monocytes # (auto) 0.15 K/uL (0.24-0.82); Monocytes % (auto) 2.5 %; Neutrophils # (auto) 5.01 K/uL (1.4-6.5); Neutrophils % (auto) 82.7 %; Platelet Count 277 K/uL (130-400); RDW Coefficient of Variation 14.1 % (11.5-14.5); RDW Standard Deviation 48.3 fL (36.4-46.3); Red Blood Count 3.29 M/uL (3.93-5.22); White Blood Count 6.05 K/ul (4.8-10.8)
[2021-12-10 21:54] LABS: Albumin Globulin Ratio 1.1 (0.9-2); Albumin Level 4.5 gm/dl (3.4-5.0); BUN Creatinine Ratio 26.1 (10-20); Bilirubin,Total 0.4 mg/dl (0.2-1.0); Calcium 9.6 mg/dl (8.5-10.1); Creatinine Clr Calc Pharmacy 34.1 ml/min; Est GFR (Non-African American) 34.5 ml/min; Potassium 5.6 mmol/L (3.5-5.1); Total Protein 8.5 gm/dl (6.0-8.3)
[2021-12-10] MEDS ORDERED: ceFAZolin 2000MG 2,000 MG/15 ML SYR IV STA (23:35)
--- NOTE | 2021-12-11 00:05 | Emergency Department Note ---
Impression & Plan Pacemaker complications ED Provider Note Provider: Valente Santos MD DATE OF SERVICE: 12/10/2021 CHIEF COMPLAINT: Pacemaker wound issue HISTORY OF PRESENT ILLNESS: Patient is a 66-year-old female history of CAD with cardiomyopathy and pacemaker, hypertension, type 2 diabetes, and COVID prese nting here today referred by her home nurse. Evidently noted by nursing today some slight discharge and opening of the wound above her pacemaker which was placed at the beginning of October. Patient states has had some trace discharge last day or so. Denies fever or chills. Denies significant chest pain but maybe some slight discomfort here. Does relate she has positive for COVID last week but is feeling improved. States she was in contact with her outpatient doctors recommend she come here for evaluation today. REVIEW OF SYSTEMS: A total of 10 review of systems was obtained and negative except as stated above in the HPI. PAST MEDICAL HISTORY: As noted above MEDICATIONS: Reviewed home medication list SOCIAL HISTORY: Resides at home PHYSICAL EXAM: GENERAL: alert and oriented in no acute distress on stretcher Head: normocephalic and atraumatic EYES: No injection, discharge or icterus. NECK: Trachea midline. ENT: Mucous membranes pink and moist. LUNGS: Airway patent. No retractions. Breath sounds clear bilaterally HEART: Regular rate and rhythm. Left upper subcutaneous pacemaker noted just above this there is an approximately 2 and half centimeter area of some slight wound dehiscence into the subcutaneous tissue with some trace bleeding and slight surrounding erythema. No exposed metallic object/pacemaker/wire is noted. No significant crepitus. ABDOMEN: Soft and non-tender, without guarding or rebound. SKIN: Acyanotic, warm, dry, without rashes EXTREMITIES: Without swelling, tenderness or deformity NEUROLOGICAL: No focal deficits. No aphasia. No facial droop or slurred speech. Ambulatory. IMPRESSION/MEDICAL DECISION MAKING: Patient with evidence of some wound dehiscence but not clearly exposed pacemaker at this point. This area was cleaned with saline and chlorhexidine by regina. Cultures obtained from in blood cultures. Given a dose of Ancef. Discussed with Dr. Horne cardiology recommended we bring her in, culture, and have the electrophysiology team evaluate her tomorrow to see if this is salvageable or if it may require replacement. Daughters at bedside wish to be highly involved and informed of further discussions in the morning when this occurs. Discussed with the patient who is agreeable with this and the hospitalist was contacted. She does not appear septic or symstemically ill at this time. No elevated WBC. The area with the pacemaker wound is covered with sterile gauze. DIAGNOSIS: Pacemaker wound dehiscence DISPOSITION: Hospitalist will evaluate Patient was agreeable with this plan. Past Med/Surg History Medical History Acute non-ST elevation myocardial infarction (NSTEMI) Anemia Arthritis CAD (coronary artery disease) 02/2020-DORIAN x2 to mid LAD 04/2020 cardiac cath demonstrated patent stents and nonobstructive disease Depression Diabetic polyneuropathy DMII (diabetes mellitus, type 2) GERD (gastroesophageal reflux disease) HTN (hypertension) Ischemic cardiomyopathy DAVID (obstructive sleep apnea) Pulmonary edema Respiratory failure STEMI (ST elevation myocardial infarction) Surgical History History of appendectomy History of carpal tunnel surgery Hx of cholecystectomy No pertinent past surgical history S/P arterial stent S/P FELA (total abdominal hysterectomy) Family History Other Deep vein thrombosis Social History Smoking Status: Former smoker Tobacco Type: Cigarettes Second Hand Exposure: No; Hx Alcohol Use: No Hx Substance Use: No Preferred Language: Romansh Communication Ability: Effective Visual Impairment: No Limitations Hearing Ability: Normal Information Resources Director Required: No Beliefs That Will Affect Care: None marital status: Current Living Situation: Spouse Current Living Situation Comment: The patient states that she lives with her child and their fianc. current occupational status: unemployed How many Children do You have: 3 Feels Safe at Home: Yes Assistive Devices: Cane and Walker Allergies Allergies Allergy/AdvReac Type Severity Reaction Status Date / Time hydrocodone Allergy Intermediate Hives Verified 12/03/21 23:38 milk Allergy Intermediate Hives Verified 12/03/21 23:38 pine nut Allergy Intermediate Hives Verified 12/03/21 23:38 empagliflozin AdvReac Intermediate DIARRHEA--PER Verified 12/03/21 23:38 [From Jardiance] GMG lactose AdvReac Intermediate Gastrointestinal Verified 12/03/21 23:38 Upset semaglutide AdvReac Intermediate Diarrhea Verified 12/03/21 23:38 vaccine adjuvant system, AdvReac Intermediate LETHARGIC, Verified 12/03/21 23:38 AS01B liposomal PAIN, [From Shingrix (PF)] FATIGUE varicella-zoster virus AdvReac Intermediate LETHARGIC, Verified 12/03/21 23:38 glycoprotein E, recombinant PAIN, [From Shingrix (PF)] FATIGUE Home Meds Home Medications Medication Instructions Recorded Confirmed sacubitril 24 mg-valsartan 26 mg 1 tab PO BID 12/04/21 12/10/21 tablet (Entresto) famotidine 20 mg tablet (Pepcid) 20 mg PO DAILY 12/10/21 12/10/21 lisinopril 10 mg tablet 10 mg PO DAILY 12/10/21 12/10/21 metoprolol succinate 50 mg 50 mg PO DAILY 12/10/21 12/10/21 tablet,extended release 24 hr Previous Rx's Medication Instructions Recorded aspirin 81 mg tablet,delayed 81 mg PO QAM 60 days #30 tabs 07/25/21 release (Kyle Low Dose Aspirin) atorvastatin 80 mg tablet (Lipitor) 80 mg PO HS 60 days #30 tabs 07/25/21 ezetimibe 10 mg tablet 10 mg PO DAILY 60 days #30 tabs 07/25/21 gabapentin 100 mg capsule 200 mg PO TID 60 days #180 caps 07/25/21 metformin 500 mg tablet,extended 500 mg PO BIDM 60 days #60 tabs 07/25/21 release 24 hr nitroglycerin 0.4 mg sublingual 0.4 mg sublingual UD PRN Chest 07/25/21 tablet (Nitrostat) Pain 60 days #90 tabs oxybutynin chloride 5 mg tablet 5 mg PO DAILY 60 days #30 tabs 07/25/21 pantoprazole 20 mg tablet,delayed 20 mg PO DAILY 60 days #30 tabs 07/25/21 release (Protonix) sertraline 100 mg tablet (Zoloft) 100 mg PO QAM 60 days #30 tabs 07/25/21 ticagrelor 90 mg tablet (Brilinta) 90 mg PO BID #60 tabs 07/25/21 torsemide 10 mg tablet 10 mg PO DAILY 60 days #30 tabs 07/25/21 cyanocobalamin (vitamin B-12) 500 500 mcg PO QAM #30 tabs 12/05/21 mcg tablet dexamethasone 6 mg tablet 6 mg PO DAILY #7 tabs 12/05/21 ferrous sulfate 325 mg (65 mg 325 mg PO QAM #30 tabs 12/05/21 iron) tablet,delayed release folic acid 1 mg tablet 1 mg PO QAM #30 tabs 12/05/21 Results & Data (ED) Vital Signs Vital Signs - 24 hr 12/10/21 18:24 Temperature 36.8 C Temperature Source Temporal Artery Scan Pulse Rate 90 Respiratory Rate 18 Blood Pressure 160/94 H Blood Pressure Mean 116 Pulse Oximetry 97 Oxygen Delivery Method Room Air Sepsis Recent Fever Within 48 Hours No Sepsis New/Unexplained Change in Mental Status No Sepsis Action Taken by Nursing No Action Required Laboratory Data Result diagrams: 12/10/21 20:33 12/10/21 20:33 Lab Results 12/10/21 12/10/21 Range/Units 20:33 20:33 WBC 6.05 (4.8-10.8) K/ul RBC 3.29 L (3.93-5.22) M/uL Hgb 10.0 L (12.0-16.0) g/dl Hct 30.9 L (34.1-44.9) % MCV 93.9 (80.0-100.0) fL MCH 30.4 (25.0-34.0) pg MCHC 32.4 (32.0-36.0) g/dL RDW Std Deviation 48.3 H (36.4-46.3) fL RDW Coeff of Ronaldo 14.1 (11.5-14.5) % Plt Count 277 (130-400) K/uL MPV 10.4 (9.4-12.3) fL Immature Gran % (Auto) 1.5 % Neut % (Auto) 82.7 % Lymph % (Auto) 13.1 % [place] % (Auto) 2.5 % Eos % (Auto) 0.0 % Baso % (Auto) 0.2 % Neut # (Auto) 5.01 (1.4-6.5) K/uL Lymph # (Auto) 0.79 L (1.2-3.4) K/uL [place] # (Auto) 0.15 L (0.24-0.82) K/uL Eos # (Auto) 0.00 (0-0.50) K/uL Baso # (Auto) 0.01 (0-0.2) K/uL Immature Gran # (Auto) 0.09 H (0.00-0.02) K/uL Sodium 134 L (136-145) mmol/L Potassium 5.6 H (3.5-5.1) mmol/L Chloride 100 (98-107) mmol/L Carbon Dioxide 24 (21-32) mmol/L Anion Gap 10 (3-11) BUN 41 H (6-23) mg/dl Creatinine 1.57 H (0.6-1.2) mg/dl Est Cr Clr Drug Dosing 34.1 ml/min Est GFR ( Amer) 40.0 ml/min Est GFR (Non-Af Amer) 34.5 ml/min BUN/Creatinine Ratio 26.1 H (10-20) Glucose 344 H* (70-99(Fasting)) mg/dl Calcium 9.6 (8.5-10.1) mg/dl Total Bilirubin 0.4 (0.2-1.0) mg/dl AST 22 (13-39) U/L ALT 9 (7-52) U/L Alkaline Phosphatase 65 (34-104) U/L Total Protein 8.5 H (6.0-8.3) gm/dl Albumin 4.5 (3.4-5.0) gm/dl Globulin 4.0 (2.5-4.0) gm/dl Albumin/Globulin Ratio 1.1 (0.9-2) Discharge Plan Visit Data Chief Complaint: Illness Stated Complaint: PACEMAKER ISSUES ED Provider: Valente Santos Discharge Problem: Pacemaker complications Forms Stand Alone Forms: My [facility] Prescriptions Prescriptions: No Action atorvastatin [Lipitor] 80 mg Tablet 80 mg PO HS 60 Days Qty: 30 1RF sertraline [Zoloft] 100 mg tablet 100 mg PO QAM 60 Days Qty: 30 1RF torsemide 10 mg tablet 10 mg PO DAILY 60 Days Qty: 30 1RF Rx Instructions: MAY TAKE ADDITIONAL DOSE IF NEEDED for weight gain,additonal fluid aspirin [Kyle Low Dose Aspirin] 81 mg Tablet,Delayed Release (Dr/Ec) 81 mg PO QAM 60 Days Qty: 30 1RF pantoprazole [Protonix] 20 mg tablet,delayed release (DR/EC) 20 mg PO DAILY 60 Days Qty: 30 1RF nitroglycerin [Nitrostat] 0.4 mg tablet, sublingual 0.4 mg sublingual UD PRN (Reason: Chest Pain) 60 Days Qty: 90 1RF gabapentin 100 mg capsule 200 mg PO TID 60 Days Qty: 180 1RF oxybutynin chloride 5 mg Tablet 5 mg PO DAILY 60 Days Qty: 30 1RF metformin 500 mg tablet extended release 24 hr 500 mg PO BIDM 60 Days Qty: 60 1RF ezetimibe 10 mg tablet 10 mg PO DAILY 60 Days Qty: 30 1RF Brilinta 90 mg Tablet 90 mg PO BID Qty: 60 1RF Entresto 24-26 mg tablet 1 tab PO BID ferrous sulfate 325 mg (65 mg iron) Tablet,Delayed Release (Dr/Ec) 325 mg PO QAM Qty: 30 0RF cyanocobalamin (vitamin B-12) 500 mcg Tablet 500 mcg PO QAM Qty: 30 0RF folic acid 1 mg Tablet 1 mg PO QAM Qty: 30 0RF dexamethasone 6 mg tablet 6 mg PO DAILY Qty: 7 0RF metoprolol succinate 50 mg tablet extended release 24 hr 50 mg PO DAILY famotidine [Pepcid] 20 mg tablet 20 mg PO DAILY lisinopril 10 mg tablet 10 mg PO DAILY Referrals Referrals: Scarlett Pires MD [Primary Care Provider] - : Pacemaker complications Qualifiers: Encounter type: initial encounter Qualified Code(s): T82.9XXA - Unspecified complication of cardiac and vascular prosthetic device, implant and graft, initial encounter
[2021-12-11] MEDS ORDERED: SODIUM POLYSTYRENE SULFONATE 15G/60ML SUSP PO STA (01:17)
--- NOTE | 2021-12-11 04:58 | History and Physical Report ---
DATE OF ADMISSION: 12/11/2021. CHIEF COMPLAINT: Open wound of the pacemaker site. HISTORY OF PRESENT ILLNESS: A 66-year-old female with past medical history significant for type 2 diabetes, diabetic polyneuropathy, hyperlipidemia, history of hypertension, history of CAD, status post stents, history of chronic systolic CHF, history of sinus bradycardia, history of GERD, female stress incontinence, chronic kidney disease stage III, history of hearing loss, anemia, depression, history of ST-elevated MT. The patient also has EF of 35% on recent echo, status post ICD on 10/29/2021, recent COVID infection, who presents with infection of the ICD site. The patient was recently in the hospital for COVID pneumonia. At that time, the family refused remdesevir she was on Decadron. She was discharged home on 12/05/2021. She was diagnosed with COVID on 12/03/2021. As per family, she had weakness for 2-3 days when she was diagnosed with COVID, otherwise currently does not have any COVID symptoms. Last Friday, she noticed some bleeding coming out from the ICD site and today home health nurse came and saw her and advised to come to the hospital. The ICD site is open on the lateral side with some bloody drainage, has some pain at the site. Denies any fever or chills. No chest pain, no headache, no neck pain, no back pain, no belly pain. No lower extremity complaints. No cough, no fevers, no shortness of breath. Appetite is okay. Eating and drinking okay. No earache, no runny nose, no sore throat, no nausea. Normal bowel and bladder movements. Currently, resting comfortably and hemodynamically stable. ALLERGIES: HYDROCODONE, MILK, PINE NUT, JARDIANCE, LACTOSE, SEMAGLUTIDE, SHINGRIX VACCINE. PAST MEDICAL HISTORY: As mentioned above. PAST SURGICAL HISTORY: Carpal tunnel surgery, colonoscopy, cardiac catheterization, insertion of defibrillator, ligation of oviducts, partial plantar fasciotomy, appendectomy, removal of heel spur, cholecystectomy, trigger finger release, total abdominal hysterectomy with removal of tubes. MEDICATIONS: The patient is on aspirin 81 mg p.o. daily, atorvastatin 80 mg p.o. at bedtime, Brilinta 90 mg p.o. b.i.d., vitamin B12 500 mcg p.o. a.m., dexamethasone 6 mg p.o. daily to complete a 10-day course, Entresto one tablet p.o. b.i.d., ezetimibe 10 mg p.o. daily, famotidine 20 mg p.o. daily, ferrous sulfate 325 mg p.o. a.m., folic acid 1 mg p.o. a.m., gabapentin 200 mg p.o. t.i.d., lisinopril 10 mg p.o. daily, metformin 500 mg p.o. b.i.d., metoprolol succinate 50 mg p.o. daily, Nitrostat 0.4 mg sublingual p.r.n., oxybutynin chloride 5 mg p.o. daily, Protonix 20 mg p.o. daily, Zoloft 100 mg p.o. daily, torsemide 10 mg p.o. daily. FAMILY HISTORY: Significant for daughter has asthma; mother has breast cancer, diabetes; father has stroke, hypertension, heart disorder, hearing loss; paternal grandmother had colon cancer; uncle has liver cancer; aunt has cancer. SOCIAL HISTORY: , former smoker, quit in 1977. Smoked 2 packs a day for 20 years. No alcohol use. No drug use. REVIEW OF SYSTEMS: As per HPI. Rest of the review of systems is negative. PHYSICAL EXAMINATION: GENERAL: The patient is of moderate build, not in acute distress. VITAL SIGNS: Temperature 36.8, pulse 84, respiratory rate 16, blood pressure 169/97, oxygen 98% on room air. HEENT: Pupils equal, round, and reactive to light. Oral mucosa dry. NECK: No JVD. No neck masses. CARDIOVASCULAR: S1 and S2 heard. Regular rate and rhythm. No murmur, no gallop. ICD site open wound/dehiscence, about 2 inches with some bloody drainage. RESPIRATORY SYSTEM: Normal AP diameter. No accessory muscle use. No wheezing, no crackles. ABDOMEN: Soft, bowel sounds present, nontender, no distention. CENTRAL NERVOUS SYSTEM: Cranial nerves II through XII are grossly intact, nonfocal. EXTREMITIES: Trace edema, no erythema seen. LABORATORY DATA: WBC 6.05, hemoglobin 10, hematocrit 30.9, platelets 277. Sodium 134, potassium 5.6, chloride 100, bicarbonate 24, BUN 41, creatinine 1.5, serum glucose 344, calcium 9.6, total bilirubin 0.4, AST 22, ALT 9, alkaline phosphatase 65. SARS-CoV-2 rapid test is positive ASSESSMENT AND PLAN: This 66-year-old female who presents with infection of the ICD site. 1. Infection of the ICD site: There is an open wound/dehiscence mild bloody draining. Cultures obtained in the ER. ER gave a dose of ancef.Will continue with Zosyn and vancomycin and will follow cultures and taper the antibiotics. Will keep her n.p.o. and consult cardiology. Will get a chest x-ray. Further recommendations as per cardiology. Closely monitor in the [employer]. 2. Hyperkalemia: Potassium of 5.6, will give Kayexalate. Follow the repeat labs.If any concern will consult Nephrology. 3. Acute kidney injury: Presently with a creatinine of 1.5. Will hold her Entresto. Avoid nephrotoxic agents. Getting gentle fluids. Will hold torsemide. Follow the repeat labs. 4. Chronic systolic congestive heart failure: EF of 20% to 25% on echocardiogram done on 07/20/2021, improved to 35% on echocardiogram done on 09/26/2021. Holding Entresto and torsemide.( to check with if she is also taking lisinopril) Getting gentle fluids, monitor for any volume overload. 5. Diabetes: Sugars are running high. Holding metformin. Placing her on insulin sliding scale. Could be probably because of the Decadron, which will be stopped. Closely monitor the blood sugars, follow HbA1c levels. 6. Recent COVID: The patient was diagnosed with COVID on 12/03/2021, currently saturating okay on room air. She was in the hospital and discharged on Decadron, which will be stopped because of the current pacemaker site infection as she is saturating okay on room air. Will follow the COVID precautions. Will monitor. 7. History of coronary artery disease: Status post stent.. History of ST- elevated myocardial infarction: Continue her aspirin, Brilinta, Lipitor, and metoprolol. 8. Depression: Continue Zoloft. 9. Gastroesophageal reflux disease: Continue Protonix. 10. Deep venous thrombosis prophylaxis: Sequential compression devices for now. DISPOSITION: Closely monitor in the [employer]. PT/OT prior to discharge. Social service to help with discharge planning. Job ID: [id number] ANA PAULA
[2021-12-11] MEDS ORDERED: NITROGLYCERIN SL 0.4 MG/TAB TAB SL PRN (05:06)
[2021-12-11] MEDS ORDERED: VANCOMYCIN CONSULT ACTIVE PRN (05:06)
[2021-12-11] MEDS: SODIUM CHLORIDE 0.9% 1000ML 1,000 ML IV SCH (05:15)
[2021-12-11] MEDS ORDERED: GLUCOSE 10 TAB/TUBE PO PRN (05:45)
[2021-12-11] MEDS ORDERED: DEXTROSE 50% 50 ML SYRINGE IV PRN (05:45)
[2021-12-11] MEDS ORDERED: GLUCAGON FOR INJ 1 MG VIAL IM PRN (05:45)
[2021-12-11] MEDS ORDERED: GLUCOSE 40% GEL 15 GM TUBE PO PRN (05:45)
[2021-12-11] MEDS ORDERED: PIPERACILLIN/TAZOBACTAM 4.5 GM in DEXTROSE 5% 100 ML IV ONE (05:45)
[2021-12-11] MEDS ORDERED: CARBOHYDRATES FOR HYPOGLYCEMIA PO PRN (05:45)
[2021-12-11] MEDS ORDERED: VANCOMYCIN HCL 1,500 MG in SODIUM CHLORIDE 0.9% 500 ML IV ONE (05:45)
[2021-12-11] MEDS ORDERED: INSULIN HUMAN REGULAR PER UNIT 4 UNITS in SYRINGE 3.96 ML IV ONE (06:00)
[2021-12-11] MEDS: INSULIN ASPART PER UNIT SC SCH ×4 (06:23→22:19)
[2021-12-11 07:53] LABS: Eosinophils # (auto) 0.01 K/uL (0-0.50); Eosinophils % (auto) 0.2 %; Hematocrit (blood only) 25.7 % (34.1-44.9); Hemoglobin 8.4 g/dl (12.0-16.0); Immature Granulocytes # (auto) 0.06 K/uL (0.00-0.02); Lymphocytes # (auto) 1.31 K/uL (1.2-3.4); Lymphocytes % (auto) 20.9 %; Mean Corpuscular Hemoglobin 30.8 pg (25.0-34.0); Mean Corpuscular Hgb Conc 32.7 g/dL (32.0-36.0); Mean Corpuscular Volume 94.1 fL (80.0-100.0); Mean Platelet Volume 10.2 fL (9.4-12.3); Monocytes # (auto) 0.42 K/uL (0.24-0.82); Monocytes % (auto) 6.7 %; Neutrophils # (auto) 4.47 K/uL (1.4-6.5); Neutrophils % (auto) 71.2 %; Platelet Count 225 K/uL (130-400); RDW Coefficient of Variation 14.3 % (11.5-14.5); RDW Standard Deviation 48.5 fL (36.4-46.3); Red Blood Count 2.73 M/uL (3.93-5.22); White Blood Count 6.27 K/ul (4.8-10.8)
[2021-12-11 08:13] LABS: BUN Creatinine Ratio 29.1 (10-20); Calcium 8.9 mg/dl (8.5-10.1); Creatinine Clr Calc Pharmacy 41.9 ml/min; Est GFR (African American) 51.6 ml/min; Est GFR (Non-African American) 44.6 ml/min; Magnesium 1.3 mg/dl (1.7-2.4); Potassium 3.9 mmol/L (3.5-5.1)
--- NOTE | 2021-12-11 08:33 | Pharmacy Report ---
Pharmacy PK ABX Note - Date of Service December 11, 2021 - Assessment and Plan Assessment 66 year old F receiving empiric vancomycin and Zosyn for possible infection of ICD site. Pertinent PMH includes hx of ICD placement (10/29/21), T2DM, CKD, and HFrEF. Patient with apparent SHAWN, SCr of 1.57 mg/dL on admission, now 1.27 mg/dL (baseline appears to be ~1-1.1 mg/dL). Pertinent microbiologic data includes: chest and blood cultures x 2 pending. Day # 1 of antimicrobial therapy. Plan Vancomycin * Loading dose: 1500 mg IV x 1 * Maintenance dose: 1250 mg IV every 24 hours * Regimen is predicted to achieve target AUC/VIRA of 400-600 mg/L.hr * Random level ordered for: 12/12/21 in light of unstable renal function Zosyn * 4.5 g IV x 1, followed by 3.375 g IV q8h - appropriate, no change Pharmacy will continue to follow and will adjust dose/frequency as necessary. Thank you. Pharmacy has transitioned to AUC monitoring for vancomycin. AUC/VIRA is the preferred PK/PD target and is associated with decreased risk of nephrotoxicity compared to traditional trough targets.
--- NOTE | 2021-12-11 08:35 | XRay Report ---
XR chest 1V portable HISTORY: 66 years-old Female infected icd site . History of recent cough. follow-up study in a patie nt with left subclavian pacer reported soft tissue infection of the chest. COMPARISON: 12/03/2021 TECHNIQUE: AP view of the chest FINDINGS: Cardiomegaly with coronary arterial stent. Left subclavian pacer/AICD. No pneumothorax, pleural effus ion, airspace consolidation or overt pulmonary edema. The bones of the chest appear grossly intact. IMPRESSION: No acute process. ACT 112: Negative or not required by law. The above report was generated using voice recognition software. It may contain grammatical, syntax o r spelling errors. Electronically signed by: Asher Liu M.D. 12/11/2021 8:34 AM
[2021-12-11] MEDS: FERROUS SULFATE 325 MG TAB PO SCH (08:46)
[2021-12-11] MEDS: METOPROLOL SUCC 50MG EXT REL TAB PO SCH (08:47)
[2021-12-11] MEDS: FAMOTIDINE 20 MG TAB PO SCH (08:47)
[2021-12-11] MEDS: GABAPENTIN 100 MG CAP PO SCH ×3 (08:47→21:29)
[2021-12-11] MEDS: ASPIRIN 81 MG ECTAB PO SCH (08:48)
[2021-12-11] MEDS: EZETIMIBE 10 MG TABLET PO SCH (08:48)
[2021-12-11] MEDS: CYANOCOBALAMIN (B-12) 500 MCG TABLET PO SCH (08:48)
[2021-12-11] MEDS: PANTOprazole 40 MG TAB PO SCH (08:48)
[2021-12-11] MEDS: FOLIC ACID 1 MG TAB PO SCH (08:48)
[2021-12-11] MEDS: OXYBUTYNIN CHLORIDE 5 MG TAB PO SCH (08:48)
[2021-12-11] MEDS: TICAGRELOR 90 MG TAB PO SCH ×2 (08:49→21:29)
[2021-12-11] MEDS: SERTRALINE HCL 100 MG TABLET PO SCH (08:49)
[2021-12-11 08:51] LABS: Estimated Average Glucose 180 mg/dl; Hemoglobin A1C 7.9 % (4.5-5.6)
[2021-12-11 09:47] LABS: Appearance Urine Clear (Clear); Bacteria Urine Automated 1+ (Negative); Bilirubin Urine Negative (Negative); Blood Urine Trace (Negative); Color Urine Yellow; Epithelial Cell Urine Auto >30 /lpf (0-5); Glucose Urine UA 1+ (Negative); Ketones Urine Negative (Negative); Leukocyte Esterase Urine 1+ (Negative); Nitrite Urine Negative (Negative); Protein Urine 3+ (Negative); Specific Gravity Urine 1.021 (1.000-1.030); Urobilinogen Urine Negative (Negative); pH Urine 5.5 (4.5-7.5)
[2021-12-11 10:07] LABS: RBC Urine Automated 0-4 /hpf (0-4); Renal Epithelial Cells Urine 0-5 /lpf (0-5)
[2021-12-11] MEDS: PIPERACILLIN/TAZOBACTAM 3.375 GM in DEXTROSE 5% 100 ML IV SCH ×2 (12:50→21:30)
[2021-12-11] MEDS ORDERED: Nursing to Pharmacy Communication SCH (14:15)
--- NOTE | 2021-12-11 14:45 | Communication Note ---
Date of Service: December 11, 2021 The patient was seen and examined in medical telemetry unit and in the COVID room. She was admitted early this morning and remained stable hemodynamically. A full progress note will be done tomorrow. DR Cecelia mckoy
[2021-12-11] MEDS ORDERED: VANCOMYCIN HCL 1,250 MG in SODIUM CHLORIDE 0.9% 250 ML IV SCH (16:00)
[2021-12-11] MEDS: ATORVASTATIN 40 MG TAB PO SCH (21:29)
[2021-12-12] MEDS: SODIUM CHLORIDE 0.9% 1000ML 1,000 ML IV SCH ×2 (00:36→20:56)
[2021-12-12] MEDS: PIPERACILLIN/TAZOBACTAM 3.375 GM in DEXTROSE 5% 100 ML IV SCH ×3 (03:16→20:56)
[2021-12-12 07:24] LABS: Basophils # (auto) 0.02 K/uL (0-0.2); Basophils % (auto) 0.4 %; Eosinophils # (auto) 0.09 K/uL (0-0.50); Eosinophils % (auto) 1.7 %; Hematocrit (blood only) 25.5 % (34.1-44.9); Hemoglobin 8.3 g/dl (12.0-16.0); Immature Granulocytes # (auto) 0.07 K/uL (0.00-0.02); Immature Granulocytes % (auto) 1.3 %; Lymphocytes # (auto) 1.63 K/uL (1.2-3.4); Lymphocytes % (auto) 30.8 %; Mean Corpuscular Hemoglobin 30.9 pg (25.0-34.0); Mean Corpuscular Hgb Conc 32.5 g/dL (32.0-36.0); Mean Corpuscular Volume 94.8 fL (80.0-100.0); Mean Platelet Volume 9.9 fL (9.4-12.3); Monocytes # (auto) 0.37 K/uL (0.24-0.82); Neutrophils # (auto) 3.11 K/uL (1.4-6.5); Neutrophils % (auto) 58.8 %; Platelet Count 193 K/uL (130-400); RDW Coefficient of Variation 14.5 % (11.5-14.5); RDW Standard Deviation 50.4 fL (36.4-46.3); Red Blood Count 2.69 M/uL (3.93-5.22); White Blood Count 5.29 K/ul (4.8-10.8)
[2021-12-12 07:44] LABS: BUN Creatinine Ratio 22.1 (10-20); Calcium 7.9 mg/dl (8.5-10.1); Creatinine Clr Calc Pharmacy 44.2 ml/min; Est GFR (African American) 54.2 ml/min; Est GFR (Non-African American) 46.8 ml/min; Magnesium 1.3 mg/dl (1.7-2.4); Potassium 3.9 mmol/L (3.5-5.1)
--- NOTE | 2021-12-12 08:34 | Pharmacy Report ---
Pharmacy PK ABX Note - Date of Service December 12, 2021 - Assessment and Plan Assessment 12/12/21: * Slight improvement in renal function today (SCr 1.27 -> 1.22 mg/dL) * Random level obtained this morning due to resolving SHAWN * Patient remains afebrile with no leukocytosis * Cardiology consult pending Background: 66 year old F receiving empiric vancomycin and Zosyn for possible infection of ICD site. Pertinent PMH includes hx of ICD placement (10/29/21), T2DM, CKD, and HFrEF. Patient with apparent SHAWN, SCr of 1.57 mg/dL on admission, now 1.27 mg/dL (baseline appears to be ~1-1.1 mg/dL). Pertinent microbiologic data includes: chest and blood cultures x 2 pending. Day # 2 of antimicrobial therapy. Plan Vancomycin * Current regimen: 1250 mg IV every 24 hours * Random level obtained 12/12/21 resulted as 14.4 mcg/mL. This is predicted to achieve target AUC/VIRA of 400-600 mg/L.hr * Predicted AUC at steady state: 500 mg/L.hr * Continue 1250 mg IV every 24 hours. However, will give at 0900, earlier than originally scheduled, as predicted AUC at 1600 today to be potentially below 400 mg/L.hr * Will repeat level in the next 48-72 hours if therapy is continued and/or change in patient clinical status * Reassess renal function tomorrow morning Zosyn * 4.5 g IV x 1, followed by 3.375 g IV q8h - appropriate dosing, no change Pharmacy will continue to follow and will adjust dose/frequency as necessary. Thank you. Pharmacy has transitioned to AUC monitoring for vancomycin. AUC/VIRA is the preferred PK/PD target and is associated with decreased risk of nephrotoxicity compared to traditional trough targets.
[2021-12-12] MEDS: GABAPENTIN 100 MG CAP PO SCH ×3 (08:58→20:58)
[2021-12-12] MEDS: OXYBUTYNIN CHLORIDE 5 MG TAB PO SCH (08:58)
[2021-12-12] MEDS: FAMOTIDINE 20 MG TAB PO SCH (08:58)
[2021-12-12] MEDS: EZETIMIBE 10 MG TABLET PO SCH (08:58)
[2021-12-12] MEDS: CYANOCOBALAMIN (B-12) 500 MCG TABLET PO SCH (08:58)
[2021-12-12] MEDS: METOPROLOL SUCC 50MG EXT REL TAB PO SCH (08:58)
[2021-12-12] MEDS: FOLIC ACID 1 MG TAB PO SCH (08:58)
[2021-12-12] MEDS: TICAGRELOR 90 MG TAB PO SCH ×2 (08:58→20:59)
[2021-12-12] MEDS: SERTRALINE HCL 100 MG TABLET PO SCH (08:58)
[2021-12-12] MEDS: ASPIRIN 81 MG ECTAB PO SCH (08:58)
[2021-12-12] MEDS: FERROUS SULFATE 325 MG TAB PO SCH (08:58)
[2021-12-12] MEDS: PANTOprazole 40 MG TAB PO SCH (08:58)
[2021-12-12] MEDS: MAGNESIUM SULFATE / D5W 1 GM/100 ML BAG IV SCH ×2 (08:59→10:44)
[2021-12-12] MEDS: VANCOMYCIN HCL 1,250 MG in SODIUM CHLORIDE 0.9% 250 ML IV SCH (09:15)
[2021-12-12] MEDS: INSULIN ASPART PER UNIT SC SCH ×4 (09:45→21:15)
--- NOTE | 2021-12-12 11:24 | Cardiology Progress Note ---
Date of Service December 12, 2021 Assessment & Plan (1) Wound dehiscence: (2) COVID-19: (3) CAD (coronary artery disease): (4) Ischemic cardiomyopathy: Plan 66 year old female with history of ischemic cardiomyopathy (EF 20%) status post October 29, 2021 biventricular pacemaker defibrillator implantation. Patient admitted to this facility 12/11/2021 after observing wound dehiscence on 12/09/2021, device incision infection. Incision appears improved when compared to the image obtained via [email or web address]. Continue IV antibiotics. Caution with further IV fluid administration. Check CXR. Further recommendations as per Dr. Bullock/Ariadna. Entresto (24-26) and Torsemide (10 mg/day) notably being held. Admission and Anticipated Discharge Date Admission Date: December 11, 2021 Supervising Physician Co-Signing Physician Notes Patient seen examined the bedside. Feeling well from a cardiovascular perspective. Denies chest pain or shortness of breath. No fever or chills. Patient seen and examined donning appropriate PPE in the setting of positive COVID-19 status. PE: VSS. Gen: NAD, AAOx3. Heart: Regular rhythm, normal S1-S2. Lungs: Clear bilateral, no rales rhonchi or wheeze. Extremities: No edema. Chest: Device pocket wound dehiscence noted. No purulent drainage. A/P: Agree with above PA-C history, physical exam, assessment and plan. Continue IV antibiotic therapy. Blood cultures drawn 12/10 without growth. Wound culture growing out Staphylococcus species. Patient tentatively scheduled for device removal 12/14/2021. Subjective Patient evaluated in full PPE, Room 279. Chart, medications, and telemetry reviewed. No fevers, chills, sweats, chest pain, palpitations, unusual shortness of breath, worsening cough, orthopnea, PND, or peripheral edema. Telemetry: Sinus in the 60's and 70's. Physical Exam Physical Exam: General: A&Ox3. NAD. HENT: Normocephalic. Atraumatic. Eyes: PER. Conjunctiva pink, sclera clear. Neck: No carotid bruits. No JVD. Heart: RRR, 70 bpm. No murmur. No rub. No gallop. PMI is displaced. Lungs: Clear to auscultation. Chest: The incision is dehisced with surrounding erythema, both of which appear improved as compared to the [email or web address]. The device pocket feels OK, without significant hematoma or fluctuance. Abdomen: +BS. Soft. Nontender. No masses or organomegaly. Extremities: No clubbing, cyanosis, or edema. Limited neurological examination is without focal deficits. Pulses: radial=2/4, posterior tibial=2/4. Results & Data ([facility]) Vital Signs (Past 12 Hours) Vital Signs Temp Pulse Pulse Resp BP Pulse Ox O2 Del Method 12/12/21 10:48 Room Air 12/12/21 08:16 36.6 C 78 18 150/76 H 96 Room Air 12/12/21 06:17 61 12/12/21 02:23 36.9 C 84 18 132/71 95 Room Air Laboratory Results CBC 12/12/21 Range/Units 07:07 WBC 5.29 (4.8-10.8) K/ul RBC 2.69 L (3.93-5.22) M/uL Hgb 8.3 L (12.0-16.0) g/dl Hct 25.5 L (34.1-44.9) % Plt Count 193 (130-400) K/uL Neut # (Auto) 3.11 (1.4-6.5) K/uL Lymph # (Auto) 1.63 (1.2-3.4) K/uL Bonner # (Auto) 0.37 (0.24-0.82) K/uL Eos # (Auto) 0.09 (0-0.50) K/uL Baso # (Auto) 0.02 (0-0.2) K/uL Comprehensive Metabolic Panel 12/12/21 Range/Units 07:07 Sodium 140 (136-145) mmol/L Potassium 3.9 (3.5-5.1) mmol/L Chloride 109 H (98-107) mmol/L Carbon Dioxide 26 (21-32) mmol/L BUN 27 H (6-23) mg/dl Creatinine 1.22 H (0.6-1.2) mg/dl Glucose 145 H (70-99(Fasting)) mg/dl Calcium 7.9 L (8.5-10.1) mg/dl Intake and Output 12/11/21 12/12/21 12/12/21 22:59 06:59 14:59 Intake Total 930 / 2782.5 1082.5 / 2782.5 477.5 / 477.5 Balance 930 / 2331.5 1082.5 / 2331.5 477.5 / 477.5 Intake: IV 390 / 2122.5 1082.5 / 2122.5 477.5 / 477.5 Magnesium Sulfate / D5w 1 gm In 87.5 / 87.5 100 ml @ 50 mls/hr IV Q2H [facility] Rx#:[id number] Piperacillin/Tazobactam 3.375 115 / 230 115 / 230 115 / 115 gm In Dextrose 5% 100 ml @ 28. 75 mls/hr IV Q8H [facility] Rx#: [id number] Sodium Chloride 0.9% 1000ML 1, 967.5 / 967.5 000 ml @ 50 mls/hr IV .Q20H [facility] Rx#:[id number] Vancomycin HCl 1,250 mg In 275 / 275 275 / 275 Sodium Chloride 0.9% 250 ml @ 200 mls/hr IV Q24H [facility] Rx#: [id number] Oral 540 / 660 Other: Other Intake Source npo Weight 71.7 kg
--- NOTE | 2021-12-12 12:42 | XRay Report ---
XR chest 1V portable HISTORY: 66 years-old Female chf. device incision infection/dehis acute shortness of breath COMPARISON: Chest radiograph 12/11/2021 TECHNIQUE: Portable upright AP view the chest FINDINGS: Cardiac silhouette is enlarged. Left subclavian pacer/AICD. Coronary arterial stent. No pneumothorax, pleural effusion, airspace consolidation or overt pulmonary edema. Degenerative changes of the shoul ders and spine. IMPRESSION: No acute process. ACT 112: Negative or not required by law. The above report was generated using voice recognition software. It may contain grammatical, syntax o r spelling errors. Electronically signed by: Asher Liu M.D. 12/12/2021 12:40 PM
--- NOTE | 2021-12-12 12:58 | Cardiology Progress Note ---
Date of Service December 11, 2021 Assessment & Plan (1) Wound dehiscence: Plan: pt with ICD implanted on 10/27/2021 due to ICM and SB; her post up 1 week incision looked good on 11/06/21 in our office. She presents today with clear wound dehiscence that I feel did not just occur 2 days ago. Regardless she is going to need the ICD extracted. If blood cultures are positive she probably should have a IAN prior to the extraction. For now the extraction is scheduled for Thursday 12/14 at 8am; so she will need to be NPO after midnight; and not be on any systemic anti-coagulation. Admission and Anticipated Discharge Date Admission Date: December 11, 2021 Subjective Pt instructed to come to the hospital after [facility] evaluated her and found the ICD surgical incision dehiscent. She reports that she noticed it 2 days prior. She denies any fevers or chills. Review of Systems Review of Systems: All systems reviewed & are unremarkable except as noted in HPI & below Physical Exam Physical Exam: aaox3, NAD NC/AT, EOMI Supple No JVD Nrl S1/S2, No murmur CTA b/l no w/r/r soft nt/nd no LE edema b/l skin intact no focal deficits left pectoral incision is open with some drainage Results & Data ([facility]) Vital Signs (Past 12 Hours) Vital Signs Temp Pulse Pulse Resp BP Pulse Ox O2 Del Method 12/12/21 10:48 Room Air 12/12/21 08:16 36.6 C 78 18 150/76 H 96 Room Air 12/12/21 06:17 61 12/12/21 02:23 36.9 C 84 18 132/71 95 Room Air Laboratory Results lab work reviewed blood cultures and wound culture still pending
--- NOTE | 2021-12-12 16:36 | Hospitalist Progress Note ---
Date of Service December 12, 2021 Assessment & Plan (1) Wound dehiscence: Plan: Wound dehiscence involving the ICD/pacemaker insertion site-s/p biventricular pacer defibrillator implantation on 10/29/2021 Has been started on intravenous vancomycin and Zosyn on admission Wound culture is growing staph aureus sensitivities pending Blood culture has been pending MRSA has been negative Appreciate cardiology input and likely surgery on (2) Pacemaker complications: Plan: As above (3) COVID-19: Plan: Denies any COVID 19 related symptoms Diagnosed to have COVID on 12/03/2021 and she is fully vaccinated We will observe (4) DAVID (obstructive sleep apnea): Plan: Can use her own CPAP if she has been using (5) DMII (diabetes mellitus, type 2): Plan: We will continue with SSI (6) Depression: (7) Hypertension: Plan: Blood pressure remains controlled (8) Ischemic cardiomyopathy: Plan: Chronic systolic congestive heart failure with EF of 20 to 25% as on echocardiogram on 07/20/2021 which improved to 35% on 09/26/2021 Remained stable without any signs and or symptoms of fluid overload Will monitor DVT prophylaxis SCDs for now CODE STATUS Full Admission and Anticipated Discharge Date Admission Date: December 11, 2021 Subjective 12/12/2021 The patient was seen and examined in medical telemetry unit and in the COVID room She denies any symptoms secondary to COVID Her wound pain and inflammation have diminished No fever and no chills Review of Systems Review of Systems: All systems reviewed and are unremarkable except as noted below Physical Exam Physical Exam: Lying in bed comfortably Constitutional: well developed, well nourished and average body habitus; not ill appearing Eyes: PERRL, conjunctivae normal, anicteric sclerae ENMT: external ear and nose normal, oropharynx normal Neck: trachea midline, no thyromegaly Respiratory: no respiratory distress Auscultation: lungs clear to auscultation bilaterally Cardiovascular: Rate/Rhythm: regular rate and regular rhythm; not tachycardic Heart Sounds: normal S1, normal S2 and + abnormal opening sounds; no murmur Extremities: no edema Gastrointestinal (Abdomen): Inspection/Auscultation: normal bowel sounds; abdomen not distended Percussion/Palpation: abdomen soft; abdomen nontender Musculoskeletal: No acute arthritis in any joint Skin: Left anterior upper chest wall wound looks better without any drainage and little or no inflammation Neurologic: Alert, awake and oriented x3 Results & Data Results & Data ([facility]) Vital Signs (Past 12 Hours) Vital Signs Temp Pulse Pulse Resp BP BP Pulse Ox 12/12/21 13:24 36.7 C 74 19 127/73 97 12/12/21 10:48 12/12/21 08:16 36.6 C 78 18 150/76 H 96 12/12/21 06:17 61 O2 Del Method 12/12/21 13:24 Room Air 12/12/21 10:48 Room Air 12/12/21 08:16 Room Air 12/12/21 06:17 Laboratory Results Short CBC 12/12/21 Range/Units 07:07 WBC 5.29 (4.8-10.8) K/ul Hgb 8.3 L (12.0-16.0) g/dl Hct 25.5 L (34.1-44.9) % Plt Count 193 (130-400) K/uL BMP 12/12/21 07:07 Sodium 140 Potassium 3.9 Chloride 109 H Carbon Dioxide 26 BUN 27 H Creatinine 1.22 H Glucose 145 H Calcium 7.9 L Medications Administered Current Inpatient Medications Acetaminophen (Acetaminophen 325 Mg Tab) 650 mg PO Q4H PRN PRN Reason: Pain or Fever Stop: 01/10/22 05:05 Aspirin (Aspirin 81 Mg Ectab) 81 mg PO QAM [facility] Stop: 01/10/22 08:59 Last Admin: 12/12/21 08:58 Dose: 81 mg Atorvastatin Calcium (Atorvastatin 40 Mg Tab) 80 mg PO HS [facility] Stop: 01/10/22 20:59 Last Admin: 12/11/21 21:29 Dose: 80 mg Cyanocobalamin (Cyanocobalamin (B-12) 500 Mcg Tablet) 500 mcg PO QAM [facility] Stop: 01/10/22 08:59 Last Admin: 12/12/21 08:58 Dose: 500 mcg Dextrose (Dextrose 50% 50 Ml Syringe) 25 - 50 ml IV UD PRN; Protocol PRN Reason: Hypoglycemia Protocol Stop: 01/10/22 05:44 Ezetimibe (Ezetimibe 10 Mg Tablet) 10 mg PO DAILY [facility] Stop: 01/10/22 08:59 Last Admin: 12/12/21 08:58 Dose: 10 mg Famotidine (Famotidine 20 Mg Tab) 20 mg PO DAILY [facility] Stop: 01/10/22 08:59 Last Admin: 12/12/21 08:58 Dose: 20 mg Ferrous Sulfate (Ferrous Sulfate 325 Mg Tab) 325 mg PO QAM [facility] Stop: 01/10/22 08:59 Last Admin: 12/12/21 08:58 Dose: 325 mg Folic Acid (Folic Acid 1 Mg Tab) 1 mg PO QAM [facility] Stop: 01/10/22 08:59 Last Admin: 12/12/21 08:58 Dose: 1 mg Gabapentin (Gabapentin 100 Mg Cap) 200 mg PO TID [facility] Stop: 01/10/22 08:59 Last Admin: 12/12/21 12:38 Dose: 200 mg Glucagon (Glucagon For Inj 1 Mg Vial) 1 mg IM UD PRN; Protocol PRN Reason: Hypoglycemia Protocol Stop: 01/10/22 05:44 Glucose (Glucose 40% Gel 15 Gm Tube) 15 - 30 gm PO UD PRN; Protocol PRN Reason: Hypoglycemia Protocol Stop: 01/10/22 05:44 Glucose (Glucose 10 Tab/Tube) 4 - 8 tab PO UD PRN; Protocol PRN Reason: Hypoglycemia Protocol Stop: 01/10/22 05:44 Sodium Chloride (Nss 1000ml) 1,000 mls @ 50 mls/hr IV .Q20H [facility] Stop: 01/10/22 05:05 Last Admin: 12/12/21 00:36 Dose: 50 mls/hr Piperacillin Sod/Tazobactam (Sod 3.375 gm/ Dextrose) 115 mls @ 28.75 mls/hr IV Q8H [facility]; Protocol Stop: 12/18/21 11:59 Last Admin: 12/12/21 12:38 Dose: 28.8 mls/hr Vancomycin HCl 1,250 mg/ (Sodium Chloride) 275 mls @ 200 mls/hr IV Q24H [facility] Stop: 12/19/21 08:59 Last Infusion: 12/12/21 10:44 Dose: Infused Insulin Aspart (Insulin Aspart Per Unit) 0 units SC ACHS [facility] Stop: 01/10/22 05:59 Last Admin: 12/12/21 12:46 Dose: 1 units Metoprolol Succinate (Metoprolol Succ 50mg Ext Rel Tab) 50 mg PO DAILY [facility] Stop: 01/10/22 08:59 Last Admin: 12/12/21 08:58 Dose: 50 mg Miscellaneous (Carbohydrates For Hypoglycemia ) 15 - 30 gm PO UD PRN PRN Reason: Hypoglycemia Treatment Stop: 01/10/22 05:44 Miscellaneous Information (Vancomycin Consult Active) 1 each N/A UD PRN PRN Reason: Consult Stop: 01/10/22 05:05 Nitroglycerin (Nitroglycerin Sl 0.4 Mg/Tab Tab) 0.4 mg SL UD PRN PRN Reason: Chest Pain Stop: 01/10/22 05:05 Oxybutynin Chloride (Oxybutynin Chloride 5 Mg Tab) 5 mg PO DAILY [facility] Stop: 01/10/22 08:59 Last Admin: 12/12/21 08:58 Dose: 5 mg Pantoprazole Sodium (Pantoprazole 40 Mg Tab) 40 mg PO DAILY [facility] Stop: 01/12/22 08:59 Sertraline HCl (Sertraline Hcl 100 Mg Tablet) 100 mg PO QAM [facility] Stop: 01/10/22 08:59 Last Admin: 12/12/21 08:58 Dose: 100 mg Ticagrelor (Ticagrelor 90 Mg Tab) 90 mg PO BID [facility] Stop: 01/10/22 08:59 Last Admin: 12/12/21 08:58 Dose: 90 mg (1) Pacemaker complications Encounter type: initial encounter Qualified Code(s): T82.9XXA - Unspecified complication of cardiac and vascular prosthetic device, implant and graft, initial encounter (2) Hypertension Hypertension type: essential hypertension Qualified Code(s): I10 - Essential (primary) hypertension
[2021-12-12] MEDS: ATORVASTATIN 40 MG TAB PO SCH (20:59)
[2021-12-13] MEDS: PIPERACILLIN/TAZOBACTAM 3.375 GM in DEXTROSE 5% 100 ML IV SCH (03:46)
[2021-12-13] MEDS: FOLIC ACID 1 MG TAB PO SCH (09:01)
[2021-12-13] MEDS: TICAGRELOR 90 MG TAB PO SCH ×2 (09:01→20:39)
[2021-12-13] MEDS: GABAPENTIN 100 MG CAP PO SCH ×3 (09:01→20:39)
[2021-12-13] MEDS: CYANOCOBALAMIN (B-12) 500 MCG TABLET PO SCH (09:01)
[2021-12-13] MEDS: FERROUS SULFATE 325 MG TAB PO SCH (09:01)
[2021-12-13] MEDS: OXYBUTYNIN CHLORIDE 5 MG TAB PO SCH (09:02)
[2021-12-13] MEDS: EZETIMIBE 10 MG TABLET PO SCH (09:02)
[2021-12-13] MEDS: METOPROLOL SUCC 50MG EXT REL TAB PO SCH (09:02)
[2021-12-13] MEDS: ASPIRIN 81 MG ECTAB PO SCH (09:02)
[2021-12-13] MEDS: SERTRALINE HCL 100 MG TABLET PO SCH (09:02)
[2021-12-13] MEDS: VANCOMYCIN HCL 1,250 MG in SODIUM CHLORIDE 0.9% 250 ML IV SCH (09:03)
[2021-12-13] MEDS: FAMOTIDINE 20 MG TAB PO SCH (09:03)
[2021-12-13] MEDS: PANTOprazole 40 MG TAB PO SCH (09:03)
[2021-12-13] MEDS: INSULIN ASPART PER UNIT SC SCH ×4 (09:12→20:33)
[2021-12-13 09:32] LABS: Creatinine Clr Calc Pharmacy 45.4 ml/min; Est GFR (African American) 55.3 ml/min; Est GFR (Non-African American) 47.7 ml/min
--- NOTE | 2021-12-13 14:49 | Hospitalist Progress Note ---
Date of Service December 13, 2021 Assessment & Plan (1) Wound dehiscence: Plan: Wound dehiscence involving the ICD/pacemaker insertion site-s/p biventricular pacer defibrillator implantation on 10/29/2021 Has been started on intravenous vancomycin and Zosyn on admission Wound culture is growing staph aureus sensitivities pending Blood culture has been pending MRSA has been negative Appreciate cardiology input and likely surgery on Wound culture did show MSSA and antibiotics were changed to IV cefazolin Will have procedure tomorrow as per the film historian (2) Pacemaker complications: Plan: As above (3) COVID-19: Plan: Denies any COVID 19 related symptoms Diagnosed to have COVID on 12/03/2021 and she is fully vaccinated We will observe No respiratory symptoms from COVID (4) DAVID (obstructive sleep apnea): Plan: Can use her own CPAP if she has been using (5) DMII (diabetes mellitus, type 2): Plan: We will continue with SSI (6) Depression: (7) Hypertension: Plan: Blood pressure remains controlled (8) Ischemic cardiomyopathy: Plan: Chronic systolic congestive heart failure with EF of 20 to 25% as on echocardiogram on 07/20/2021 which improved to 35% on 09/26/2021 Remained stable without any signs and or symptoms of fluid overload Will monitor DVT prophylaxis SCDs for now CODE STATUS Full Admission and Anticipated Discharge Date Admission Date: December 11, 2021 Subjective 12/12/2021 The patient was seen and examined in medical telemetry unit and in the COVID room She denies any symptoms secondary to COVID Her wound pain and inflammation have diminished No fever and no chills 12/13/2021 The patient was seen and examined in medical telemetry unit and in the COVID room She has been feeling much better and denies any pain, fever and or chills and no nausea and or vomiting Review of Systems Review of Systems: All systems reviewed and are unremarkable except as noted below Physical Exam Physical Exam: Lying in bed comfortably Constitutional: well developed, well nourished and average body habitus; not ill appearing Eyes: PERRL, conjunctivae normal, anicteric sclerae ENMT: external ear and nose normal, oropharynx normal Neck: trachea midline, no thyromegaly Respiratory: no respiratory distress Auscultation: lungs clear to auscultation bilaterally Cardiovascular: Rate/Rhythm: regular rate and regular rhythm; not tachycardic Heart Sounds: normal S1, normal S2 and + abnormal opening sounds; no murmur Extremities: no edema Gastrointestinal (Abdomen): Inspection/Auscultation: normal bowel sounds; abdomen not distended Percussion/Palpation: abdomen soft; abdomen nontender Musculoskeletal: No acute arthritis in any joint Neurologic: normal touch/pain/proprioception and moves all extremities; no focal motor deficits Lymphatic: no cervical or axillary lymphadenopathy Results & Data Results & Data ([facility]) Vital Signs (Past 12 Hours) Vital Signs Temp Pulse Pulse Resp BP Pulse Ox O2 Del Method 12/13/21 08:00 80 12/13/21 08:00 Room Air 12/13/21 07:56 36.5 C 77 16 138/73 94 Room Air 12/13/21 04:47 36.6 C 65 18 124/62 97 Room Air Laboratory Results BMP 12/13/21 08:45 Creatinine 1.20 Medications Administered Current Inpatient Medications Acetaminophen (Acetaminophen 325 Mg Tab) 650 mg PO Q4H PRN PRN Reason: Pain or Fever Stop: 01/10/22 05:05 Aspirin (Aspirin 81 Mg Ectab) 81 mg PO QAM GLYNN Stop: 01/10/22 08:59 Last Admin: 12/13/21 09:02 Dose: 81 mg Atorvastatin Calcium (Atorvastatin 40 Mg Tab) 80 mg PO HS GLYNN Stop: 01/10/22 20:59 Last Admin: 12/12/21 20:59 Dose: 80 mg Cyanocobalamin (Cyanocobalamin (B-12) 500 Mcg Tablet) 500 mcg PO QAM GLYNN Stop: 01/10/22 08:59 Last Admin: 12/13/21 09:01 Dose: 500 mcg Dextrose (Dextrose 50% 50 Ml Syringe) 25 - 50 ml IV UD PRN; Protocol PRN Reason: Hypoglycemia Protocol Stop: 01/10/22 05:44 Ezetimibe (Ezetimibe 10 Mg Tablet) 10 mg PO DAILY GLYNN Stop: 01/10/22 08:59 Last Admin: 12/13/21 09:02 Dose: 10 mg Famotidine (Famotidine 20 Mg Tab) 20 mg PO DAILY GLYNN Stop: 01/10/22 08:59 Last Admin: 12/13/21 09:03 Dose: 20 mg Ferrous Sulfate (Ferrous Sulfate 325 Mg Tab) 325 mg PO QAM GLYNN Stop: 01/10/22 08:59 Last Admin: 12/13/21 09:01 Dose: 325 mg Folic Acid (Folic Acid 1 Mg Tab) 1 mg PO QAM GLYNN Stop: 01/10/22 08:59 Last Admin: 12/13/21 09:01 Dose: 1 mg Gabapentin (Gabapentin 100 Mg Cap) 200 mg PO TID GLYNN Stop: 01/10/22 08:59 Last Admin: 12/13/21 09:01 Dose: 200 mg Glucagon (Glucagon For Inj 1 Mg Vial) 1 mg IM UD PRN; Protocol PRN Reason: Hypoglycemia Protocol Stop: 01/10/22 05:44 Glucose (Glucose 40% Gel 15 Gm Tube) 15 - 30 gm PO UD PRN; Protocol PRN Reason: Hypoglycemia Protocol Stop: 01/10/22 05:44 Glucose (Glucose 10 Tab/Tube) 4 - 8 tab PO UD PRN; Protocol PRN Reason: Hypoglycemia Protocol Stop: 01/10/22 05:44 Sodium Chloride (Nss 1000ml) 1,000 mls @ 50 mls/hr IV .Q20H GLYNN Stop: 01/10/22 05:05 Last Admin: 12/12/21 20:56 Dose: 50 mls/hr Cefazolin Sodium (Ancef 1000mg) 1,000 mg in 7.5 mls @ 2.5 mls/min IV Q8H GLYNN Stop: 12/18/21 23:59 Insulin Aspart (Insulin Aspart Per Unit) 0 units SC ACHS GLYNN Stop: 01/10/22 05:59 Last Admin: 12/13/21 13:06 Dose: 3 units Metoprolol Succinate (Metoprolol Succ 50mg Ext Rel Tab) 50 mg PO DAILY GLYNN Stop: 01/10/22 08:59 Last Admin: 12/13/21 09:02 Dose: 50 mg Miscellaneous (Carbohydrates For Hypoglycemia ) 15 - 30 gm PO UD PRN PRN Reason: Hypoglycemia Treatment Stop: 01/10/22 05:44 Nitroglycerin (Nitroglycerin Sl 0.4 Mg/Tab Tab) 0.4 mg SL UD PRN PRN Reason: Chest Pain Stop: 01/10/22 05:05 Oxybutynin Chloride (Oxybutynin Chloride 5 Mg Tab) 5 mg PO DAILY GLYNN Stop: 01/10/22 08:59 Last Admin: 12/13/21 09:02 Dose: 5 mg Pantoprazole Sodium (Pantoprazole 40 Mg Tab) 40 mg PO DAILY GLYNN Stop: 01/12/22 08:59 Last Admin: 12/13/21 09:03 Dose: 40 mg Sertraline HCl (Sertraline Hcl 100 Mg Tablet) 100 mg PO QAM GLYNN Stop: 01/10/22 08:59 Last Admin: 12/13/21 09:02 Dose: 100 mg Ticagrelor (Ticagrelor 90 Mg Tab) 90 mg PO BID GLYNN Stop: 01/10/22 08:59 Last Admin: 12/13/21 09:01 Dose: 90 mg (1) Pacemaker complications Encounter type: initial encounter Qualified Code(s): T82.9XXA - Unspecified complication of cardiac and vascular prosthetic device, implant and graft, initial encounter (2) Hypertension Hypertension type: essential hypertension Qualified Code(s): I10 - Essential (primary) hypertension
[2021-12-13] MEDS: SODIUM CHLORIDE 0.9% 1000ML 1,000 ML IV SCH (15:38)
[2021-12-13] MEDS: ceFAZolin 1000MG 1,000 MG/7.5 ML SYR IV SCH (20:38)
[2021-12-13] MEDS: ATORVASTATIN 40 MG TAB PO SCH (20:39)
[2021-12-14] MEDS: ceFAZolin 1000MG 1,000 MG/7.5 ML SYR IV SCH ×3 (05:08→21:27)
[2021-12-14] MEDS ORDERED: INSULIN ASPART PER UNIT SC SCH (06:50)
[2021-12-14] MEDS ORDERED: LIDOCAINE 1% LOCAL 20 ML VIAL ONE (06:58)
[2021-12-14] MEDS ORDERED: WATER, STERILE FOR INJ 10 ML VIAL ONE (06:59)
[2021-12-14] MEDS ORDERED: BUPIVACAINE 0.25% 30 ML VIAL ONE (06:59)
[2021-12-14] MEDS ORDERED: VANCOMYCIN HCL 1000MG/20ML VIAL ONE (06:59)
[2021-12-14] MEDS ORDERED: Nursing to Pharmacy Communication SCH ×2 (07:00→11:15)
[2021-12-14 07:37] LABS: Creatinine Clr Calc Pharmacy 45.6 ml/min; Est GFR (African American) 54.2 ml/min; Est GFR (Non-African American) 46.8 ml/min
--- NOTE | 2021-12-14 07:42 | History & Physical Bridge Note ---
Date of Service December 14, 2021 History & Physical Bridge Note I have examined the patient, reviewed the History & Physical and in the interval since the performance of the History & Physical I have noted the following changes of clinical significance: pt with ICD wound dehiscences for an ICD extraction; re-discussed the risks consents signed
--- NOTE | 2021-12-14 07:43 | Pre Anesthesia Assessment ---
Date of Service December 14, 2021 Pre Sedation Assessment Vital Signs Temp Pulse Pulse Resp BP BP Pulse Ox 12/14/21 07:21 36.6 C 66 16 142/69 H 96 12/14/21 04:00 36.7 C 72 18 145/70 H 97 12/14/21 01:07 66 12/13/21 23:40 36.4 C L 62 20 126/67 98 12/13/21 20:16 36.7 C 61 20 152/74 H 100 12/13/21 15:24 36.4 C L 78 18 145/69 H 99 12/13/21 08:00 80 12/13/21 08:00 12/13/21 07:56 36.5 C 77 16 138/73 94 O2 Del Method 12/14/21 07:21 Room Air 12/14/21 04:00 Room Air 12/14/21 01:07 12/13/21 23:40 Room Air 12/13/21 20:16 Room Air 12/13/21 15:24 Room Air 12/13/21 08:00 12/13/21 08:00 Room Air 12/13/21 07:56 Room Air Cardiovascular RRR, no murmur, no edema Respiratory normal respiratory effort, lungs clear to auscultation Pre-Sedation Airway Assessment Smoking Status: Former smoker Hx Sleep Apnea: Yes Hx Difficult Intubation: No ASA: ASA3 NPO Status Date of Last Intake of Fluids: 12/13/21 Date of Last Intake of Solid Food: 12/13/21 Procedure Planning Contraindications for Sedation: none Current Medications Reviewed: Yes Notes The planned sedation has been discussed with the patient. Informed Consent was obtained. I have identified the patient, determined the appropriateness of sedation and have assessed the patient immediately prior to the procedure. All medicine(s) and interventions are by my order.
[2021-12-14] MEDS ORDERED: MIDAZOLAM HCL 5 MG/ML 1 ML VIAL ONE (07:52)
[2021-12-14] MEDS ORDERED: fentaNYL citrate 100 MCG/2 ML VIAL ONE (07:53)
--- NOTE | 2021-12-14 08:48 | Post Anesthesia Assessment ---
Date of Service December 14, 2021 Post Sedation Assessment Vital Signs Temp Pulse Pulse Resp BP BP Pulse Ox 12/14/21 07:30 12/14/21 07:21 36.6 C 66 16 142/69 H 96 12/14/21 04:00 36.7 C 72 18 145/70 H 97 12/14/21 01:07 66 12/13/21 23:40 36.4 C L 62 20 126/67 98 12/13/21 20:16 36.7 C 61 20 152/74 H 100 12/13/21 15:24 36.4 C L 78 18 145/69 H 99 O2 Del Method 12/14/21 07:30 Room Air 12/14/21 07:21 Room Air 12/14/21 04:00 Room Air 12/14/21 01:07 12/13/21 23:40 Room Air 12/13/21 20:16 Room Air 12/13/21 15:24 Room Air Recovery Score Activity: Moves 4 extremities Respiration: Deep Breath/Cough Circulation: +/-20% PreAnes Value Consciousness: Fully Awake Oxygen Saturation: > 92% On Room Air Discharge Sedation Level of Care: Fast Track Phase II Post Sedation Plan On clinical assessment, the patient appears to have tolerated the sedation without complications. Patient is recovering as anticipated. Patient will continue to be monitored by nursing and may be discharged when sedation discharge criteria are met per below protocol. Upon Completions of procedure up to 15 minutes continue every 5 minute vital signs and the P.A.R. score; then discharge to a Phase I or Fast Track to Phase II per the following guidelines: * Discharge Patient to appropriate Phase II area if PAR is 8 or greater or return to pre- procedure baseline. The post - procedure orders will be as directed. * If PAR score is less than 8 or not return to pre-procedure baseline then patient will follow Phase I monitoring till PAR is reached for Phase II. The Phase I may be done in procedure room or may call to secure a Phase I area. * If naloxone or flumazenil are used for reversal, hold in Phase I for continued monitoring from when last reversal dose was given for a minimum of 60 minutes or longer pending the nurse and/or physician discretion of patient condition before discharge to Phase II. Please call the Sedation Physician to re-evaluate and complete post-note for discharge to Phase II area. Do NOT discharge from procedure sedation or Phase 1 until post- sedation evaluation note is complete by procedure /sedation MD Sedation Discharge Instructions to be given to the patient at discharge to home.
--- NOTE | 2021-12-14 08:49 | Operative Report ---
Post Operative Report Pre & Post Diagnosis ICD pocket infection and wound dehiscence Operation Date: 12/14/21 08:00 <No data on this case meets the specified criteria> I identified the patient and participated in the time-out.: Yes Procedure Operation Date: 12/14/21 08:00 Actual Procedures p ICD Removal - Tess Rosenthal DO Surgeon Tess Rosenthal, Sustainment Logistics Analyst none Estimated Blood Loss 10 Findings Consistent with Post-Op Diagnosis Specimens none Description of Procedure see official report I attest to the content of the Intraoperative Record and any orders documented therein. Any exceptions are noted below.
[2021-12-14] MEDS ORDERED: NITROGLYCERIN SL 0.4 MG/TAB TAB SL PRN (08:59)
[2021-12-14] MEDS ORDERED: lisinopril 10 MG TAB PO SCH (09:00)
[2021-12-14] MEDS: FAMOTIDINE 20 MG TAB PO SCH (09:25)
[2021-12-14] MEDS: PANTOprazole 40 MG TAB PO SCH (09:26)
[2021-12-14] MEDS: ASPIRIN 81 MG ECTAB PO SCH ×2 (09:26→11:08)
[2021-12-14] MEDS: METOPROLOL SUCC 50MG EXT REL TAB PO SCH (09:26)
[2021-12-14] MEDS: FERROUS SULFATE 325 MG TAB PO SCH (09:26)
[2021-12-14] MEDS: CYANOCOBALAMIN (B-12) 500 MCG TABLET PO SCH (09:26)
[2021-12-14] MEDS: SERTRALINE HCL 100 MG TABLET PO SCH (09:26)
[2021-12-14] MEDS: FOLIC ACID 1 MG TAB PO SCH (09:26)
[2021-12-14] MEDS: OXYBUTYNIN CHLORIDE 5 MG TAB PO SCH (09:27)
[2021-12-14] MEDS: EZETIMIBE 10 MG TABLET PO SCH (09:27)
[2021-12-14] MEDS: VALSARTAN/SACUBITRIL 26/24MG TAB PO SCH ×2 (11:01→21:25)
[2021-12-14] MEDS: TORSEMIDE 10 MG TAB PO SCH (11:01)
[2021-12-14] MEDS: GABAPENTIN 100 MG CAP PO SCH ×3 (11:02→21:25)
[2021-12-14] MEDS: SODIUM CHLORIDE 0.9% 1000ML 1,000 ML IV SCH (11:07)
[2021-12-14] MEDS: TICAGRELOR 90 MG TAB PO SCH ×2 (11:23→21:25)
[2021-12-14] MEDS ORDERED: METOPROLOL TARTRATE 1 MG/ML VIAL IV STA ×2 (12:23→12:55)
--- NOTE | 2021-12-14 13:36 | Hospitalist Progress Note ---
Date of Service December 14, 2021 Assessment & Plan (1) Wound dehiscence: Plan: Wound dehiscence involving the ICD/pacemaker insertion site-s/p biventricular pacer defibrillator implantation on 10/29/2021 Has been started on intravenous vancomycin and Zosyn on admission Wound culture is growing staph aureus sensitivities pending Blood culture has been pending MRSA has been negative Appreciate cardiology input and likely surgery on Wound culture did show MSSA and antibiotics were changed to IV cefazolin No signs and or symptoms of infection-the infected device has been taken out We will give oral antibiotic to finish the course 12/14/2021 Status post ICD removal Minimal bleeding from the surgical site-dressing will be applied as per instruction Will require wound dressing as an outpatient (2) Pacemaker complications: Plan: Status post removal of ICD due to wound infection on 12/14/2021 Will have LifeVest applied before reimplantation of a new device Appreciate cardiology input and recommendation (3) COVID-19: Plan: Denies any COVID 19 related symptoms Diagnosed to have COVID on 12/03/2021 and she is fully vaccinated We will observe No respiratory symptoms from COVID (4) DAVID (obstructive sleep apnea): Plan: Can use her own CPAP if she has been using (5) DMII (diabetes mellitus, type 2): Plan: We will continue with SSI (6) Depression: (7) Hypertension: Plan: Blood pressure remains controlled Blood pressure has been running high will give Lopressor 2.5 mg IV x1 (8) Ischemic cardiomyopathy: Plan: Chronic systolic congestive heart failure with EF of 20 to 25% as on echocardiogram on 07/20/2021 which improved to 35% on 09/26/2021 Remained stable without any signs and or symptoms of fluid overload Will monitor DVT prophylaxis SCDs for now CODE STATUS Full Admission and Anticipated Discharge Date Admission Date: December 11, 2021 Subjective 12/12/2021 The patient was seen and examined in medical telemetry unit and in the COVID room She denies any symptoms secondary to COVID Her wound pain and inflammation have diminished No fever and no chills 12/13/2021 The patient was seen and examined in medical telemetry unit and in the COVID room She has been feeling much better and denies any pain, fever and or chills and no nausea and or vomiting 12/14/2021 The patient was seen and examined in telemetry unit She is status post ICD removal from left upper anterior chest wall Noted to have more bleeding from the surgery site otherwise stable Denies any pain and no shortness of breath Review of Systems Review of Systems: All systems reviewed and are unremarkable except as noted below Physical Exam Physical Exam: Lying in bed comfortably with anxiety Constitutional: well developed, well nourished and average body habitus; not ill appearing Eyes: PERRL, conjunctivae normal, anicteric sclerae ENMT: external ear and nose normal, oropharynx normal Neck: trachea midline, no thyromegaly Respiratory: no respiratory distress Auscultation: lungs clear to auscultation bilaterally Cardiovascular: Rate/Rhythm: regular rate and regular rhythm; not tachycardic Heart Sounds: normal S1, normal S2 and + abnormal opening sounds; no murmur Extremities: no edema Gastrointestinal (Abdomen): Inspection/Auscultation: normal bowel sounds; abdomen not distended Percussion/Palpation: abdomen soft; abdomen nontender Skin: Minimal bleeding from left anterior upper chest wall surgical wound with some swelling Neurologic: normal touch/pain/proprioception and moves all extremities; no focal motor deficits Lymphatic: no cervical or axillary lymphadenopathy Results & Data Results & Data ([facility]) Vital Signs (Past 12 Hours) Vital Signs Temp Pulse Pulse Pulse Resp BP BP 12/14/21 13:17 84 162/76 H 12/14/21 13:14 80 12/14/21 12:45 36.4 C L 74 18 12/14/21 12:00 62 12/14/21 11:00 36.7 C 63 20 12/14/21 10:30 36.7 C 77 20 12/14/21 10:00 36.8 C 78 18 133/62 12/14/21 09:45 36.7 C 83 18 12/14/21 09:30 66 18 12/14/21 09:15 36.5 C 79 18 12/14/21 09:00 36.6 C 85 18 12/14/21 07:30 12/14/21 07:21 36.6 C 66 16 142/69 H 12/14/21 04:00 36.7 C 72 18 145/70 H BP Pulse Ox O2 Del Method 12/14/21 13:17 12/14/21 13:14 162/76 H 12/14/21 12:45 177/75 H 98 Room Air 12/14/21 12:00 173/71 H 68 L Room Air 12/14/21 11:00 161/78 H 93 Room Air 12/14/21 10:30 166/78 H 98 Room Air 12/14/21 10:00 97 12/14/21 09:45 148/72 H 98 12/14/21 09:30 143/76 H 99 Room Air 12/14/21 09:15 143/73 H 98 Room Air 12/14/21 09:00 143/78 H 94 Room Air 12/14/21 07:30 Room Air 12/14/21 07:21 96 Room Air 12/14/21 04:00 97 Room Air Laboratory Results BMP 12/14/21 06:37 Creatinine 1.22 H Medications Administered Current Inpatient Medications Acetaminophen (Acetaminophen 325 Mg Tab) 650 mg PO Q4H PRN PRN Reason: Pain or Fever Stop: 01/10/22 05:05 Aspirin (Aspirin 81 Mg Ectab) [facility] Stop: 01/10/22 08:59 Last Admin: 12/14/21 11:08 Dose: Not Given Atorvastatin Calcium (Atorvastatin 40 Mg Tab) 80 mg PO HS GLYNN Stop: 01/10/22 20:59 Last Admin: 12/13/21 20:39 Dose: 80 mg Cyanocobalamin (Cyanocobalamin (B-12) 500 Mcg Tablet) 500 mcg PO QAM [facility] Stop: 01/10/22 08:59 Last Admin: 12/14/21 09:26 Dose: 500 mcg Dextrose (Dextrose 50% 50 Ml Syringe) 25 - 50 ml IV UD PRN; Protocol PRN Reason: Hypoglycemia Protocol Stop: 01/10/22 05:44 Ezetimibe (Ezetimibe 10 Mg Tablet) 10 mg PO DAILY GLYNN Stop: 01/10/22 08:59 Last Admin: 12/14/21 09:27 Dose: 10 mg Famotidine (Famotidine 20 Mg Tab) 20 mg PO DAILY GLYNN Stop: 01/10/22 08:59 Last Admin: 12/14/21 09:25 Dose: 20 mg Ferrous Sulfate (Ferrous Sulfate 325 Mg Tab) [facility] Stop: 01/10/22 08:59 Last Admin: 12/14/21 09:26 Dose: 325 mg Folic Acid (Folic Acid 1 Mg Tab) 1 mg PO QAM [facility] Stop: 01/10/22 08:59 Last Admin: 12/14/21 09:26 Dose: 1 mg Gabapentin (Gabapentin 100 Mg Cap) 200 mg PO TID GLYNN Stop: 01/10/22 08:59 Last Admin: 12/14/21 12:54 Dose: 200 mg Glucagon (Glucagon For Inj 1 Mg Vial) 1 mg IM UD PRN; Protocol PRN Reason: Hypoglycemia Protocol Stop: 01/10/22 05:44 Glucose (Glucose 40% Gel 15 Gm Tube) 15 - 30 gm PO UD PRN; Protocol PRN Reason: Hypoglycemia Protocol Stop: 01/10/22 05:44 Glucose (Glucose 10 Tab/Tube) 4 - 8 tab PO UD PRN; Protocol PRN Reason: Hypoglycemia Protocol Stop: 01/10/22 05:44 Sodium Chloride (Nss 1000ml) 1,000 mls @ 50 mls/hr IV .Q20H GLYNN Stop: 01/10/22 05:05 Last Admin: 12/14/21 11:07 Dose: 50 mls/hr Cefazolin Sodium (Ancef 1000mg) 1,000 mg in 7.5 mls @ 2.5 mls/min IV Q8H GLYNN Stop: 12/18/21 23:59 Last Admin: 12/14/21 12:51 Dose: 2.5 mls/min Insulin Aspart (Insulin Aspart Per Unit) 0 units SC ACHS GLYNN Stop: 01/13/22 06:49 Metformin HCl (Metformin Hcl Er 500 Mg Tabcr) 500 mg PO BIDM GLYNN Stop: 01/13/22 16:59 Metoprolol Succinate (Metoprolol Succ 50mg Ext Rel Tab) 50 mg PO DAILY GLYNN Stop: 01/10/22 08:59 Last Admin: 12/14/21 09:26 Dose: 50 mg Miscellaneous (Carbohydrates For Hypoglycemia ) 15 - 30 gm PO UD PRN PRN Reason: Hypoglycemia Treatment Stop: 01/10/22 05:44 Nitroglycerin (Nitroglycerin Sl 0.4 Mg/Tab Tab) 0.4 mg SL UD PRN PRN Reason: Chest Pain Stop: 01/10/22 05:05 Nitroglycerin (Nitroglycerin Sl 0.4 Mg/Tab Tab) 0.4 mg SL UD PRN PRN Reason: Chest Pain Stop: 01/13/22 08:58 Oxybutynin Chloride (Oxybutynin Chloride 5 Mg Tab) 5 mg PO DAILY GLYNN Stop: 01/10/22 08:59 Last Admin: 12/14/21 09:27 Dose: 5 mg Pantoprazole Sodium (Pantoprazole 40 Mg Tab) 40 mg PO DAILY GLYNN Stop: 01/12/22 08:59 Last Admin: 12/14/21 09:26 Dose: 40 mg Sacubitril/Valsartan (Valsartan/Sacubitril 26/24mg Tab) 1 tab PO BID GLYNN Stop: 01/13/22 08:59 Last Admin: 12/14/21 11:01 Dose: 1 tab Sertraline HCl (Sertraline Hcl 100 Mg Tablet) 100 mg PO QAM GLYNN Stop: 01/10/22 08:59 Last Admin: 12/14/21 09:26 Dose: 100 mg Ticagrelor (Ticagrelor 90 Mg Tab) 90 mg PO BID GLYNN Stop: 01/10/22 08:59 Last Admin: 12/14/21 11:23 Dose: 90 mg Torsemide (Torsemide 10 Mg Tab) 10 mg PO DAILY GLYNN Stop: 01/13/22 08:59 Last Admin: 12/14/21 11:01 Dose: 10 mg (1) Pacemaker complications Encounter type: initial encounter Qualified Code(s): T82.9XXA - Unspecified complication of cardiac and vascular prosthetic device, implant and graft, initial encounter (2) Hypertension Hypertension type: essential hypertension Qualified Code(s): I10 - Essential (primary) hypertension
[2021-12-14] MEDS: metFORMIN HCL ER 500 MG TABCR PO SCH ×3 (17:00→17:47)
[2021-12-14] MEDS: INSULIN ASPART PER UNIT SC SCH ×2 (17:40→20:26)
[2021-12-14] MEDS: ACETAMINOPHEN 325 MG TAB PO PRN (17:41)
[2021-12-14] MEDS ORDERED: traMADol HCL 50 MG TABLET PO PRN (20:23)
[2021-12-14] MEDS: ATORVASTATIN 40 MG TAB PO SCH (21:25)
[2021-12-15] MEDS: SODIUM CHLORIDE 0.9% 1000ML 1,000 ML IV SCH (05:30)
[2021-12-15] MEDS: ceFAZolin 1000MG 1,000 MG/7.5 ML SYR IV SCH ×3 (05:30→20:34)
[2021-12-15 07:27] LABS: Basophils # (auto) 0.02 K/uL (0-0.2); Basophils % (auto) 0.2 %; Eosinophils # (auto) 0.03 K/uL (0-0.50); Eosinophils % (auto) 0.2 %; Hematocrit (blood only) 22.4 % (34.1-44.9); Hemoglobin 7.4 g/dl (12.0-16.0); Immature Granulocytes # (auto) 0.07 K/uL (0.00-0.02); Immature Granulocytes % (auto) 0.5 %; Lymphocytes # (auto) 1.02 K/uL (1.2-3.4); Lymphocytes % (auto) 7.9 %; Mean Corpuscular Hemoglobin 30.6 pg (25.0-34.0); Mean Corpuscular Volume 92.6 fL (80.0-100.0); Mean Platelet Volume 10.3 fL (9.4-12.3); Monocytes # (auto) 0.48 K/uL (0.24-0.82); Monocytes % (auto) 3.7 %; Neutrophils # (auto) 11.23 K/uL (1.4-6.5); Neutrophils % (auto) 87.5 %; Platelet Count 183 K/uL (130-400); RDW Coefficient of Variation 13.7 % (11.5-14.5); RDW Standard Deviation 46.5 fL (36.4-46.3); Red Blood Count 2.42 M/uL (3.93-5.22); White Blood Count 12.85 K/ul (4.8-10.8)
[2021-12-15 07:52] LABS: Echinocytes 1+; Polychromasia 1+
[2021-12-15] MEDS: INSULIN ASPART PER UNIT SC SCH ×4 (08:08→20:18)
[2021-12-15 08:10] LABS: BUN Creatinine Ratio 19.6 (10-20); Calcium 7.8 mg/dl (8.5-10.1); Creatinine Clr Calc Pharmacy 54.5 ml/min; Est GFR (African American) 67.3 ml/min; Est GFR (Non-African American) 58.1 ml/min; Magnesium 1.4 mg/dl (1.7-2.4); Potassium 3.7 mmol/L (3.5-5.1)
[2021-12-15] MEDS: EZETIMIBE 10 MG TABLET PO SCH (08:15)
[2021-12-15] MEDS: FAMOTIDINE 20 MG TAB PO SCH (08:15)
[2021-12-15] MEDS: CYANOCOBALAMIN (B-12) 500 MCG TABLET PO SCH (08:15)
[2021-12-15] MEDS: METOPROLOL SUCC 50MG EXT REL TAB PO SCH (08:15)
[2021-12-15] MEDS: ASPIRIN 81 MG ECTAB PO SCH (08:16)
[2021-12-15] MEDS: FERROUS SULFATE 325 MG TAB PO SCH (08:16)
[2021-12-15] MEDS: OXYBUTYNIN CHLORIDE 5 MG TAB PO SCH (08:16)
[2021-12-15] MEDS: SERTRALINE HCL 100 MG TABLET PO SCH (08:16)
[2021-12-15] MEDS: FOLIC ACID 1 MG TAB PO SCH (08:16)
[2021-12-15] MEDS: PANTOprazole 40 MG TAB PO SCH (08:16)
[2021-12-15] MEDS: VALSARTAN/SACUBITRIL 26/24MG TAB PO SCH ×2 (08:17→20:34)
[2021-12-15] MEDS: TICAGRELOR 90 MG TAB PO SCH ×2 (08:17→21:09)
[2021-12-15] MEDS: GABAPENTIN 100 MG CAP PO SCH ×3 (08:18→20:34)
[2021-12-15] MEDS: metFORMIN HCL ER 500 MG TABCR PO SCH ×2 (08:18→16:14)
[2021-12-15] MEDS: TORSEMIDE 10 MG TAB PO SCH (08:20)
[2021-12-15] MEDS: ACETAMINOPHEN 325 MG TAB PO PRN (08:36)
[2021-12-15] MEDS: MAGNESIUM SULFATE / D5W 1 GM/100 ML BAG IV SCH ×2 (08:37→10:45)
[2021-12-15] MEDS ORDERED: LOPERAMIDE HCL 2 MG CAP PO PRN (15:01)
--- NOTE | 2021-12-15 15:09 | Hospitalist Progress Note ---
Date of Service December 15, 2021 Assessment & Plan (1) Wound dehiscence: Plan: Wound dehiscence involving the ICD/pacemaker insertion site-s/p biventricular pacer defibrillator implantation on 10/29/2021 Has been started on intravenous vancomycin and Zosyn on admission Wound culture is growing staph aureus sensitivities pending Blood culture has been pending MRSA has been negative Appreciate cardiology input and likely surgery on Wound culture did show MSSA and antibiotics were changed to IV cefazolin No signs and or symptoms of infection-the infected device has been taken out Serosanguineous drainage noted from the wound again today We will continue IV antibiotic for now and then give oral Keflex 500 twice daily on discharge to finish the course of 10 days in total 12/14/2021 Status post ICD removal Minimal bleeding from the surgical site-dressing will be applied as per instruction Will require wound dressing as an outpatient Anemia Hemoglobin went down to 7.4 as of 12/15/2021, was noted to be around 10 prior to admission Likely secondary to infection Will monitor CBC If the hemoglobin drops below 7 will give blood transfusion (2) Pacemaker complications: Plan: Status post removal of ICD due to wound infection on 12/14/2021 Will have LifeVest applied before reimplantation of a new device Appreciate cardiology input and recommendation (3) COVID-19: Plan: Denies any COVID 19 related symptoms Diagnosed to have COVID on 12/03/2021 and she is fully vaccinated We will observe No respiratory symptoms from COVID (4) DAVID (obstructive sleep apnea): Plan: Can use her own CPAP if she has been using (5) DMII (diabetes mellitus, type 2): Plan: We will continue with SSI (6) Depression: (7) Hypertension: Plan: Blood pressure remains controlled Blood pressure has been running high will give Lopressor 2.5 mg IV x1 (8) Ischemic cardiomyopathy: Plan: Chronic systolic congestive heart failure with EF of 20 to 25% as on echocardiogram on 07/20/2021 which improved to 35% on 09/26/2021 Remained stable without any signs and or symptoms of fluid overload Will monitor DVT prophylaxis SCDs for now CODE STATUS Full Admission and Anticipated Discharge Date Admission Date: December 11, 2021 Subjective 12/12/2021 The patient was seen and examined in medical telemetry unit and in the COVID room She denies any symptoms secondary to COVID Her wound pain and inflammation have diminished No fever and no chills 12/13/2021 The patient was seen and examined in medical telemetry unit and in the COVID room She has been feeling much better and denies any pain, fever and or chills and no nausea and or vomiting 12/14/2021 The patient was seen and examined in telemetry unit She is status post ICD removal from left upper anterior chest wall Noted to have more bleeding from the surgery site otherwise stable Denies any pain and no shortness of breath 12/15/2021 The patient was seen and examined in telemetry unit She continues to have bleeding from the ICD removal site She complains to have some diarrhea Denies any abdominal pain, nausea or vomiting Her hemoglobin is noted to be low at 7.4 Review of Systems Review of Systems: All systems reviewed and are unremarkable except as noted below Physical Exam Physical Exam: Lying in bed comfortably with anxiety Constitutional: well developed, well nourished and average body habitus; not ill appearing Eyes: PERRL, conjunctivae normal, anicteric sclerae ENMT: external ear and nose normal, oropharynx normal Neck: trachea midline, no thyromegaly Respiratory: no respiratory distress Auscultation: lungs clear to auscultation bilaterally Cardiovascular: Rate/Rhythm: regular rate and regular rhythm; not tachycardic Heart Sounds: normal S1, normal S2 and + abnormal opening sounds; no murmur Extremities: no edema Gastrointestinal (Abdomen): Inspection/Auscultation: normal bowel sounds; abdomen not distended Percussion/Palpation: abdomen soft; abdomen nontender Skin: Left upper anterior chest wall is bandaged at the operation site. The dressing is not soaked with blood today Neurologic: normal touch/pain/proprioception and moves all extremities; no focal motor deficits Lymphatic: no cervical or axillary lymphadenopathy Results & Data Results & Data ([facility]) Vital Signs (Past 12 Hours) Vital Signs Temp Pulse Pulse Resp BP Pulse Ox O2 Del Method 12/15/21 12:12 36.4 C L 79 20 147/76 H 98 Room Air 12/15/21 06:15 88 12/15/21 06:25 36.8 C 69 18 122/69 94 Room Air Laboratory Results Short CBC 12/15/21 Range/Units 07:01 WBC 12.85 H (4.8-10.8) K/ul Hgb 7.4 L (12.0-16.0) g/dl Hct 22.4 L (34.1-44.9) % Plt Count 183 (130-400) K/uL BMP 12/15/21 07:01 Sodium 136 Potassium 3.7 Chloride 106 Carbon Dioxide 24 BUN 20 Creatinine 1.02 Glucose 137 H Calcium 7.8 L Medications Administered Current Inpatient Medications Acetaminophen (Acetaminophen 325 Mg Tab) 650 mg PO Q4H PRN PRN Reason: Pain or Fever Stop: 01/10/22 05:05 Last Admin: 12/15/21 08:36 Dose: 650 mg Aspirin (Aspirin 81 Mg Ectab) 81 mg PO QAM GLYNN Stop: 01/10/22 08:59 Last Admin: 12/15/21 08:16 Dose: 81 mg Atorvastatin Calcium (Atorvastatin 40 Mg Tab) 80 mg PO HS GLYNN Stop: 01/10/22 20:59 Last Admin: 12/14/21 21:25 Dose: 80 mg Cyanocobalamin (Cyanocobalamin (B-12) 500 Mcg Tablet) 500 mcg PO QAM GLYNN Stop: 01/10/22 08:59 Last Admin: 12/15/21 08:15 Dose: 500 mcg Dextrose (Dextrose 50% 50 Ml Syringe) 25 - 50 ml IV UD PRN; Protocol PRN Reason: Hypoglycemia Protocol Stop: 01/10/22 05:44 Ezetimibe (Ezetimibe 10 Mg Tablet) 10 mg PO DAILY GLYNN Stop: 01/10/22 08:59 Last Admin: 12/15/21 08:15 Dose: 10 mg Famotidine (Famotidine 20 Mg Tab) 20 mg PO DAILY GLYNN Stop: 01/10/22 08:59 Last Admin: 12/15/21 08:15 Dose: 20 mg Ferrous Sulfate (Ferrous Sulfate 325 Mg Tab) 325 mg PO QAM GLYNN Stop: 01/10/22 08:59 Last Admin: 12/15/21 08:16 Dose: 325 mg Folic Acid (Folic Acid 1 Mg Tab) 1 mg PO QAM GLYNN Stop: 01/10/22 08:59 Last Admin: 12/15/21 08:16 Dose: 1 mg Gabapentin (Gabapentin 100 Mg Cap) 200 mg PO TID GLYNN Stop: 01/10/22 08:59 Last Admin: 12/15/21 14:26 Dose: 200 mg Glucagon (Glucagon For Inj 1 Mg Vial) 1 mg IM UD PRN; Protocol PRN Reason: Hypoglycemia Protocol Stop: 01/10/22 05:44 Glucose (Glucose 40% Gel 15 Gm Tube) 15 - 30 gm PO UD PRN; Protocol PRN Reason: Hypoglycemia Protocol Stop: 01/10/22 05:44 Glucose (Glucose 10 Tab/Tube) 4 - 8 tab PO UD PRN; Protocol PRN Reason: Hypoglycemia Protocol Stop: 01/10/22 05:44 Sodium Chloride (Nss 1000ml) 1,000 mls @ 50 mls/hr IV .Q20H GLYNN Stop: 01/10/22 05:05 Last Admin: 12/15/21 05:30 Dose: 50 mls/hr Cefazolin Sodium (Ancef 1000mg) 1,000 mg in 7.5 mls @ 2.5 mls/min IV Q8H GLYNN Stop: 12/18/21 23:59 Last Admin: 12/15/21 14:26 Dose: 2.5 mls/min Insulin Aspart (Insulin Aspart Per Unit) 0 units SC ACHS GLYNN Stop: 01/13/22 06:49 Last Admin: 12/15/21 12:13 Dose: 2 units Loperamide HCl (Loperamide Hcl 2 Mg Cap) 2 mg PO Q3H PRN PRN Reason: Diarrhea Stop: 01/14/22 15:00 Metformin HCl (Metformin Hcl Er 500 Mg Tabcr) 500 mg PO BIDM GLYNN Stop: 01/13/22 16:59 Last Admin: 12/15/21 08:18 Dose: Not Given Metoprolol Succinate (Metoprolol Succ 50mg Ext Rel Tab) 50 mg PO DAILY GLYNN Stop: 01/10/22 08:59 Last Admin: 12/15/21 08:15 Dose: 50 mg Miscellaneous (Carbohydrates For Hypoglycemia ) 15 - 30 gm PO UD PRN PRN Reason: Hypoglycemia Treatment Stop: 01/10/22 05:44 Nitroglycerin (Nitroglycerin Sl 0.4 Mg/Tab Tab) 0.4 mg SL UD PRN PRN Reason: Chest Pain Stop: 01/10/22 05:05 Nitroglycerin (Nitroglycerin Sl 0.4 Mg/Tab Tab) 0.4 mg SL UD PRN PRN Reason: Chest Pain Stop: 01/13/22 08:58 Oxybutynin Chloride (Oxybutynin Chloride 5 Mg Tab) 5 mg PO DAILY GLYNN Stop: 01/10/22 08:59 Last Admin: 12/15/21 08:16 Dose: 5 mg Pantoprazole Sodium (Pantoprazole 40 Mg Tab) 40 mg PO DAILY GLYNN Stop: 01/12/22 08:59 Last Admin: 12/15/21 08:16 Dose: 40 mg Sacubitril/Valsartan (Valsartan/Sacubitril 26/24mg Tab) 1 tab PO BID GLYNN Stop: 01/13/22 08:59 Last Admin: 12/15/21 08:17 Dose: 1 tab Sertraline HCl (Sertraline Hcl 100 Mg Tablet) 100 mg PO QAM GLYNN Stop: 01/10/22 08:59 Last Admin: 12/15/21 08:16 Dose: 100 mg Ticagrelor (Ticagrelor 90 Mg Tab) 90 mg PO BID GLYNN Stop: 01/10/22 08:59 Last Admin: 12/15/21 08:17 Dose: 90 mg Torsemide (Torsemide 10 Mg Tab) 10 mg PO DAILY GLYNN Stop: 01/13/22 08:59 Last Admin: 12/15/21 08:20 Dose: 10 mg Tramadol HCl (Tramadol Hcl 50 Mg Tablet) 25 - 50 mg PO Q4H PRN PRN Reason: Pain Stop: 01/13/22 20:22 Last Admin: 12/14/21 20:29 Dose: 50 mg (1) Pacemaker complications Encounter type: initial encounter Qualified Code(s): T82.9XXA - Unspecified complication of cardiac and vascular prosthetic device, implant and graft, initial encounter (2) Hypertension Hypertension type: essential hypertension Qualified Code(s): I10 - Essential (primary) hypertension
[2021-12-15] MEDS: ATORVASTATIN 40 MG TAB PO SCH (20:34)
[2021-12-15] MEDS ORDERED: Nursing to Pharmacy Communication SCH (20:45)
[2021-12-15 21:05] LABS: Alanine Aminotransferase < 3 U/L (7-52); Albumin Level 2.8 gm/dl (3.4-5.0); Alkaline Phosphatase 37 U/L (34-104); Aspartate Aminotransferase 13 U/L (13-39); Bilirubin Direct 0.1 mg/dl (0-0.2); Bilirubin,Total 0.3 mg/dl (0.2-1.0); Total Protein 5.6 gm/dl (6.0-8.3)
[2021-12-16] MEDS: SODIUM CHLORIDE 0.9% 1000ML 1,000 ML IV SCH
[2021-12-16] MEDS: ceFAZolin 1000MG 1,000 MG/7.5 ML SYR IV SCH ×3 (05:10→21:07)
[2021-12-16 06:36] LABS: Basophils # (auto) 0.02 K/uL (0-0.2); Basophils % (auto) 0.2 %; Eosinophils # (auto) 0.09 K/uL (0-0.50); Hematocrit (blood only) 22.9 % (34.1-44.9); Hemoglobin 7.5 g/dl (12.0-16.0); Immature Granulocytes # (auto) 0.04 K/uL (0.00-0.02); Immature Granulocytes % (auto) 0.5 %; Lymphocytes # (auto) 1.39 K/uL (1.2-3.4); Lymphocytes % (auto) 16.2 %; Mean Corpuscular Hemoglobin 31.1 pg (25.0-34.0); Mean Corpuscular Hgb Conc 32.8 g/dL (32.0-36.0); Mean Platelet Volume 10.5 fL (9.4-12.3); Monocytes # (auto) 0.43 K/uL (0.24-0.82); Neutrophils # (auto) 6.63 K/uL (1.4-6.5); Neutrophils % (auto) 77.1 %; Platelet Count 192 K/uL (130-400); RDW Coefficient of Variation 14.2 % (11.5-14.5); RDW Standard Deviation 49.1 fL (36.4-46.3); Red Blood Count 2.41 M/uL (3.93-5.22)
[2021-12-16 06:53] LABS: Acanthocytes 1+; Polychromasia 1+; Rouleaux 1+
[2021-12-16 07:17] LABS: BUN Creatinine Ratio 18.2 (10-20); Calcium 8.4 mg/dl (8.5-10.1); Creatinine Clr Calc Pharmacy 40.6 ml/min; Est GFR (African American) 47.1 ml/min; Est GFR (Non-African American) 40.7 ml/min; Potassium 3.7 mmol/L (3.5-5.1)
[2021-12-16] MEDS: metFORMIN HCL ER 500 MG TABCR PO SCH (09:16)
[2021-12-16] MEDS: INSULIN ASPART PER UNIT SC SCH ×4 (09:16→21:07)
[2021-12-16] MEDS: METOPROLOL SUCC 50MG EXT REL TAB PO SCH (09:29)
[2021-12-16] MEDS: OXYBUTYNIN CHLORIDE 5 MG TAB PO SCH (09:29)
[2021-12-16] MEDS: EZETIMIBE 10 MG TABLET PO SCH (09:29)
[2021-12-16] MEDS: FOLIC ACID 1 MG TAB PO SCH (09:30)
[2021-12-16] MEDS: SERTRALINE HCL 100 MG TABLET PO SCH (09:30)
[2021-12-16] MEDS: CYANOCOBALAMIN (B-12) 500 MCG TABLET PO SCH (09:30)
[2021-12-16] MEDS: TICAGRELOR 90 MG TAB PO SCH ×2 (09:30→21:06)
[2021-12-16] MEDS: PANTOprazole 40 MG TAB PO SCH (09:30)
[2021-12-16] MEDS: ASPIRIN 81 MG ECTAB PO SCH (09:30)
[2021-12-16] MEDS: GABAPENTIN 100 MG CAP PO SCH ×3 (09:31→21:06)
[2021-12-16] MEDS: FAMOTIDINE 20 MG TAB PO SCH (09:31)
[2021-12-16] MEDS: TORSEMIDE 10 MG TAB PO SCH (09:31)
[2021-12-16] MEDS: FERROUS SULFATE 325 MG TAB PO SCH (09:31)
[2021-12-16] MEDS: VALSARTAN/SACUBITRIL 26/24MG TAB PO SCH ×2 (09:31→21:06)
[2021-12-16] MEDS ORDERED: PHARMACY GLYCEMIC MGMT CONSULT PRN (11:36)
[2021-12-16] MEDS ORDERED: SODIUM CHLORIDE 0.9% 250 ML IV PRN (12:10)
[2021-12-16] MEDS ORDERED: LANTUS PER UNIT CHARGE SQ ONE (12:15)
--- NOTE | 2021-12-16 17:34 | Hospitalist Progress Note ---
Date of Service December 16, 2021 Assessment & Plan (1) Wound dehiscence: Plan: Wound dehiscence, wound infection of pacemaker site Per Dr. Navarrete's notes with addendum: Wound dehiscence involving the ICD/pacemaker insertion site-s/p biventricular pacer defibrillator implantation on 10/29/2021 Has been started on intravenous vancomycin and Zosyn on admission Wound culture is growing staph aureus sensitivities pending Blood culture has been pending MRSA has been negative Appreciate cardiology input and likely surgery on Wound culture did show MSSA and antibiotics were changed to IV cefazolin No signs and or symptoms of infection-the infected device has been taken out Serosanguineous drainage noted from the wound again today We will continue IV antibiotic for now and then give oral Keflex 500 twice daily on discharge to finish the course of 10 days in total 12/14/2021 Status post ICD removal Minimal bleeding from the surgical site-dressing will be applied as per instruction Will require wound dressing as an outpatient 12/16 Bleeding significantly reduced Discussed with Dr. Rosenthal Cleared for discharge today Follow-up this coming Friday Patient will require 7 more days of cephalexin 5 mg p.o. 4 times daily to complete 14-day course of antibiotic Home health services arranged for daily wound care Anemia Hemoglobin went down to 7.4, was noted to be around 10 prior to admission Likely secondary to infection, bleeding from pacemaker wound site 1 Unit packed RBC ordered With CBC and follow-up with primary care physician (2) Pacemaker complications: Plan: Status post removal of ICD due to wound infection on 12/14/2021 LifeVest applied, awaiting reimplantation of pacemaker after wound site infection resolves Appreciate cardiology input and recommendation (3) COVID-19: Plan: Denies any COVID 19 related symptoms Diagnosed to have COVID on 12/03/2021 and she is fully vaccinated No respiratory symptoms from COVID Off isolation after 10 days (4) DAVID (obstructive sleep apnea): Plan: Can use her own CPAP if she has been using (5) DMII (diabetes mellitus, type 2): Plan: A1c 7.9 Follow-up with primary care physician continue usual regimen (6) Depression: (7) Hypertension: Plan: Continue Entresto (8) Ischemic cardiomyopathy: Plan: Chronic systolic congestive heart failure with EF of 20 to 25% as on echocardiogram on 07/20/2021 which improved to 35% on 09/26/2021 Remained stable without any signs and or symptoms of fluid overload Continue Entresto, torsemide DVT prophylaxis SCDs for now CODE STATUS Full Discharge to home Follow-up with PCP in 1 week Follow-up with registry rn in 1 week plan of care discussed with patient in detail and at length all questions answered she is understanding, agreeable, comfortable with the plan of care Admission and Anticipated Discharge Date Admission Date: December 11, 2021 Subjective Follow-up for pacemaker incision site infection, etc. Seen sitting up in bed, watching TV, comfortable States she feels fine overall States she feels much better overall Denies pain over the pacemaker wound site Denies dizziness, shortness of breath, chest pain, palpitations, fevers or chills Bleeding of the pacemaker wound site is also significantly less Denies any other symptoms States she is ready and would like to be discharged Review of Systems Review of Systems: all noted and negative except for above Physical Exam Physical Exam: General- oriented x 3, not in distress, speaks in sentences with no effort or accessory muscle use Eyes- anicteric Neck- no JVD Lungs- clear breath sounds bilaterally, no rales/wheezes Heart- normal rate, regular rhythm; no murmurs Pacemaker incision site: Well opposed, 2 to 3 drops of blood noted on the dressing No active bleeding or discharge No erythema, minimal tenderness Abdomen- normal bowel sounds, nondistended, soft, nontender Extremities- no pretibial edema, no calf tenderness Neuro- alert, oriented x 3; no gross focal neurologic deficits Skin- warm & dry Results & Data Results & Data ([facility]) Vital Signs (Past 12 Hours) Vital Signs Temp Pulse Pulse Resp BP BP BP 12/16/21 16:51 36.6 C 66 20 144/72 H 12/16/21 16:18 79 16 136/76 12/16/21 15:51 36.7 C 86 16 167/73 H 12/16/21 14:51 37.0 C 70 16 135/74 12/16/21 06:15 71 12/16/21 14:21 36.8 C 72 18 131/74 12/16/21 14:06 36.9 C 70 18 124/70 12/16/21 13:49 36.8 C 67 16 126/71 12/16/21 13:15 36.8 C 68 18 115/63 12/16/21 06:35 36.7 C 73 18 127/62 Pulse Ox O2 Del Method 12/16/21 16:51 98 12/16/21 16:18 98 Room Air 12/16/21 15:51 95 12/16/21 14:51 98 12/16/21 06:15 12/16/21 14:21 95 12/16/21 14:06 96 12/16/21 13:49 96 12/16/21 13:15 96 Room Air 12/16/21 06:35 93 Room Air all noted and reviewed including below (1) Pacemaker complications Encounter type: initial encounter Qualified Code(s): T82.9XXA - Unspecified complication of cardiac and vascular prosthetic device, implant and graft, initial encounter (2) Hypertension Hypertension type: essential hypertension Qualified Code(s): I10 - Essential (primary) hypertension
--- NOTE | 2021-12-16 18:01 | Discharge Summary ---
Discharge Summary Date of Service December 16, 2021 Notes For Next Care Provider Patient admitted for pacemaker wound site infection, dehiscence. Pacemaker subsequently removed, and temporary LifeVest placed. Patient to follow-up with cardiology service week postdischarge for wound check, discussion regarding replacement of pacemaker. She was discharged with home health services for wound care. Required transfusion with 1 unit of packed RBCs for anemia, hemoglobin 7.2 likely secondary to bleeding from wound site. Please repeat CBC and follow-up with primary care physician in 1 week. Please see notes below for full details. Medication Changes From Visit Cephalexin 500 mg 4 times daily x7 days Admission HPI Per Admitting Provider HISTORY OF PRESENT ILLNESS: A 66-year-old female with past medical history significant for type 2 diabetes, diabetic polyneuropathy, hyperlipidemia, history of hypertension, history of CAD, status post stents, history of chronic systolic CHF, history of sinus bradycardia, history of GERD, female stress incontinence, chronic kidney disease stage III, history of hearing loss, anemia, depression, history of ST-elevated PR. The patient also has EF of 35% on recent echo, status post ICD on 10/29/2021, recent COVID infection, who presents with infection of the ICD site. The patient was recently in the hospital for COVID pneumonia. At that time, the family refused remdesevir she was on Decadron. She was discharged home on 12/05/2021. She was diagnosed with COVID on 12/03/2021. As per family, she had weakness for 2-3 days when she was diagnosed with COVID, otherwise currently does not have any COVID symptoms. Last Friday, she noticed some bleeding coming out from the ICD site and today home health nurse came and saw her and advised to come to the hospital. The ICD site is open on the lateral side with some bloody drainage, has some pain at the site. Denies any fever or chills. No chest pain, no headache, no neck pain, no back pain, no belly pain. No lower extremity complaints. No cough, no fevers, no shortness of breath. Appetite is okay. Eating and drinking okay. No earache, no runny nose, no sore throat, no nausea. Normal bowel and bladder movements. Currently, resting comfortably and hemodynamically stable. Admission Exam Per Admitting Provider GENERAL: The patient is of moderate build, not in acute distress. VITAL SIGNS: Temperature 36.8, pulse 84, respiratory rate 16, blood pressure 169/97, oxygen 98% on room air. HEENT: Pupils equal, round, and reactive to light. Oral mucosa dry. NECK: No JVD. No neck masses. CARDIOVASCULAR: S1 and S2 heard. Regular rate and rhythm. No murmur, no gal lop. ICD site open wound/dehiscence, about 2 inches with some bloody drainage. RESPIRATORY SYSTEM: Normal AP diameter. No accessory muscle use. No wheezing, no crackles. ABDOMEN: Soft, bowel sounds present, nontender, no distention. CENTRAL NERVOUS SYSTEM: Cranial nerves II through XII are grossly intact, nonfocal. EXTREMITIES: Trace edema, no erythema seen. Principal Dx & Hospital Course #1 = Principal Diagnosis (1) Wound dehiscence: Wound dehiscence, wound infection of pacemaker site Per Dr. Navarrete's notes with addendum: Wound dehiscence involving the ICD/pacemaker insertion site-s/p biventricular pacer defibrillator implantation on 10/29/2021 Has been started on intravenous vancomycin and Zosyn on admission Wound culture is growing staph aureus sensitivities pending Blood culture has been pending MRSA has been negative Appreciate cardiology input and likely surgery on Wound culture did show MSSA and antibiotics were changed to IV cefazolin No signs and or symptoms of infection-the infected device has been taken out Serosanguineous drainage noted from the wound again today We will continue IV antibiotic for now and then give oral Keflex 500 twice daily on discharge to finish the course of 10 days in total 12/14/2021 Status post ICD removal Minimal bleeding from the surgical site-dressing will be applied as per instruction Will require wound dressing as an outpatient 12/16 Bleeding significantly reduced Discussed with Dr. Rosenthal Cleared for discharge today Follow-up this coming Friday Patient will require 7 more days of cephalexin 5 mg p.o. 4 times daily to complete 14-day course of antibiotic Home health services arranged for daily wound care Anemia Hemoglobin went down to 7.4, was noted to be around 10 prior to admission Likely secondary to infection, bleeding from pacemaker wound site 1 Unit packed RBC ordered Repeat CBC and follow-up with primary care physician in 1 week (2) Pacemaker complications: Status post removal of ICD due to wound infection on 12/14/2021 LifeVest applied, awaiting reimplantation of pacemaker after wound site infection resolves Appreciate cardiology input and recommendation (3) COVID-19: Denies any COVID 19 related symptoms Diagnosed to have COVID on 12/03/2021 and she is fully vaccinated No respiratory symptoms from COVID Off isolation after 10 days (4) DAVID (obstructive sleep apnea): Can use her own CPAP if she has been using (5) DMII (diabetes mellitus, type 2): A1c 7.9 Follow-up with primary care physician continue usual regimen (6) Depression: (7) Hypertension: Continue Entresto (8) Ischemic cardiomyopathy: Chronic systolic congestive heart failure with EF of 20 to 25% as on echocardiogram on 07/20/2021 which improved to 35% on 09/26/2021 Remained stable without any signs and or symptoms of fluid overload Continue Entresto, torsemide DVT prophylaxis SCDs for now CODE STATUS Full Discharge to home Follow-up with PCP in 1 week Follow-up with operations manager assistant in 1 week plan of care discussed with patient in detail and at length all questions answered she is understanding, agreeable, comfortable with the plan of care Discharge Exam General- oriented x 3, not in distress, speaks in sentences with no effort or accessory muscle use Eyes- anicteric Neck- no JVD Lungs- clear breath sounds bilaterally, no rales/wheezes Heart- normal rate, regular rhythm; no murmurs Pacemaker incision site: Well opposed, 2 to 3 drops of blood noted on the dressing No active bleeding or discharge No erythema, minimal tenderness Abdomen- normal bowel sounds, nondistended, soft, nontender Extremities- no pretibial edema, no calf tenderness Neuro- alert, oriented x 3; no gross focal neurologic deficits Skin- warm & dry Updated Medication List Medication Instructions Recorded Confirmed Type aspirin 81 mg tablet,delayed 81 mg PO QAM 60 days #30 tabs 07/25/21 12/10/21 Rx release (Kyle Low Dose Aspirin) atorvastatin 80 mg tablet (Lipitor) 80 mg PO HS 60 days #30 tabs 07/25/21 12/10/21 Rx ezetimibe 10 mg tablet 10 mg PO DAILY 60 days #30 tabs 07/25/21 12/10/21 Rx gabapentin 100 mg capsule 200 mg PO TID 60 days #180 caps 07/25/21 12/10/21 Rx metformin 500 mg tablet,extended 500 mg PO BIDM 60 days #60 tabs 07/25/21 12/10/21 Rx release 24 hr nitroglycerin 0.4 mg sublingual 0.4 mg sublingual UD PRN Chest 07/25/21 12/10/21 Rx tablet (Nitrostat) Pain 60 days #90 tabs oxybutynin chloride 5 mg tablet 5 mg PO DAILY 60 days #30 tabs 07/25/21 12/10/21 Rx pantoprazole 20 mg tablet,delayed 20 mg PO DAILY 60 days #30 tabs 07/25/21 12/10/21 Rx release (Protonix) sertraline 100 mg tablet (Zoloft) 100 mg PO QAM 60 days #30 tabs 07/25/21 12/10/21 Rx ticagrelor 90 mg tablet (Brilinta) 90 mg PO BID #60 tabs 07/25/21 12/10/21 Rx torsemide 10 mg tablet 10 mg PO DAILY 60 days #30 tabs 07/25/21 12/10/21 Rx sacubitril 24 mg-valsartan 26 mg 1 tab PO BID 12/04/21 12/10/21 History tablet (Entresto) cyanocobalamin (vitamin B-12) 500 500 mcg PO QAM #30 tabs 12/05/21 12/10/21 Rx mcg tablet ferrous sulfate 325 mg (65 mg 325 mg PO QAM #30 tabs 12/05/21 12/10/21 Rx iron) tablet,delayed release folic acid 1 mg tablet 1 mg PO QAM #30 tabs 12/05/21 12/10/21 Rx famotidine 20 mg tablet (Pepcid) 20 mg PO DAILY 12/10/21 12/10/21 History metoprolol succinate 50 mg 50 mg PO DAILY 12/10/21 12/10/21 History tablet,extended release 24 hr cephalexin 500 mg capsule 500 mg PO QID 7 days #28 caps 12/16/21 Rx Hospital Stay Data Consultations 12/10/21 23:49 ED Decision to Admit Stat 12/11/21 08:00 Consult Cardiology Routine Procedures Performed Operation Date: 12/14/21 08:00 Actual Procedures p ICD Removal - Tess Rosenthal, Diagnostic Imagining Performed Chest X-Ray 12/12/21 11:44 XR chest 1V portable HISTORY: 66 years-old Female chf. device incision infection/dehis acute shortness of breath COMPARISON: Chest radiograph 12/11/2021 TECHNIQUE: Portable upright AP view the chest FINDINGS: Cardiac silhouette is enlarged. Left subclavian pacer/AICD. Coronary arterial stent. No pneumothorax, pleural effusion, airspace consolidation or overt pulmonary edema. Degenerative changes of the shoulders and spine. IMPRESSION: No acute process. ACT 112: Negative or not required by law. The above report was generated using voice recognition software. It may contain grammatical, syntax or spelling errors. Electronically signed by: Asher Liu M.D. 12/12/2021 12:40 PM Pending Results Patient Have Any Pending Studies at Discharge: No Discharge Instructions Given to Patient (Per Discharging Provider) PLEASE REFER TO YOUR NEW MEDICATION LIST AND FOLLOW INSTRUCTIONS CAREFULLY. YOUR NEW MEDICATION INCLUDE: Cephalexin-antibiotic for wound infection Take a probiotic for at least 1 month. Please hydrate well every day. Daily wound care dressing. Change packing as well every day. Continue home health with services at home. PLEASE CALL YOUR PRIMARY CARE PHYSICIAN OR RETURN TO THE ER IF WITH WORSENING OF SYMPTOMS, INCLUDING Worsening of bleeding, discharge, pain, redness on the incision site, fevers/chills, weakness, dizziness, shortness of breath, chest pain FOLLOW UP WITH PRIMARY CARE PHYSICIAN in 1 week. Follow-up with operations manager assistant Dr. Rosenthal as scheduled. Total Time Total Time Spent Total Time Spent (In Minutes): >30 minutes
[2021-12-16 18:56] LABS: Hematocrit (blood only) 24.8 % (34.1-44.9); Hemoglobin 8.2 g/dl (12.0-16.0)
[2021-12-16] MEDS: ATORVASTATIN 40 MG TAB PO SCH (21:06)
[2021-12-17] MEDS ORDERED: INSULIN ASPART PER UNIT SC SCH
--- NOTE | 2021-12-17 12:41 | Operative Report (OR) ---
DATE OF PROCEDURE: 12/14/2021. PREOPERATIVE DIAGNOSIS: Dual chamber implantable cardioverter-defibrillator wound dehiscence. POSTOPERATIVE DIAGNOSIS: Dual chamber implantable cardioverter-defibrillator wound dehiscence. PROCEDURE: Dual-chamber rate responsive implantable cardiac defibrillator extraction under fluorosco pic guidance. SURGEON: Tess Rosenthal DO. HAZARDOUS WASTE REMOVER: None. ANESTHESIA: Monitored conscious sedation administered under my supervision by Kiersten Hanks. Start time 8:05, end time 8:38. A total of 4 mg of Versed and 100 mcg of fentanyl. INTRAVENOUS FLUIDS: 30 mL. ANTIBIOTICS: The patient was already gotten them on the floor and no contrast was necessary. COMPLICATIONS: None. CONDITION: Stable. URINE OUTPUT: Not applicable. SPECIMENS: None. FINDINGS: See below. DRAINS: None. INDICATIONS: This is a 66-year-old female who has a past medical history for ischemic cardiomyopathy , coronary artery disease, history of an ND, hypertension, hyperlipidemia . She underwent a elgin l chamber defibrillator on 10/29/2021. Her postop wound check a week later looked good. She was rec ently in the hospital last week for COVID pneumonia. No reports then that the wound was dehisced, andre [facility] followed patient earlier this week and saw that the defibrillator incision was dehi sced. She was then admitted to the hospital. Blood cultures were negative. Wound cultures growing out Staph aureus, but because of the degree of the dehiscence, she was recommended extraction. CONSENT: Consent was obtained prior to the patient going into electrophysiology lab. The patient wa s explained risks, benefits, and alternatives to the procedure. Risks include, but not limited to, s udden cardiac , cardiac arrhythmias, cerebrovascular accident, myocardial infarction, injury to the blood vessels, chamber of the heart, bleeding, and infection. The patient understood these risks and agreed to the procedure as planned. Informed consent was obtained. DESCRIPTION OF PROCEDURE: The patient was brought into electrophysiology lab in a fasting state. Sh e was connected to continuous panel monitor. Timeout was performed to ensure patient identity and procedure correctly. She was prepped and draped over the left infraclavicular space with Betadine in normal surgical standard fashion. Then, monitored conscious sedation was given throughout the proce dure for patient's comfort level. [place] precautions were maintained throughout the procedure. 20 mL of 1% lidocaine-bupivacaine mixture were given over the open dehisced wound. Then, using blunt dissection, the wound was opened down to the defibrillator. The defibrillator was then removed from the pocket and then blunt dissection was performed down to the suture sleeve. Then the 0 silk sutur e sleeves were then undone with a blade. Then, the leads were retracted from the pulse generator. T hen, a stylet was put down in both leads. Then, the right ventricular ICD lead screw was retracted u nder fluoroscopic guidance and with gentle retraction the lead was extracted. Then, the right atrial lead screw was retracted and under fluoroscopic guidance lead with gentle retr action was extracted. There was no bleeding at the puncture site. The pocket was flushed with copio us amounts of vancomycin and saline wash and inspected for hemostasis. Then, the incision was closed by secondary intention using mattress stitch with Ethibond sutures, before it was all the way closed , I then packed the wound with 1-inch iodoform and then a dressing was placed over the area. EQUIPMENT: 1. The explanted generator is a [id number], Evera XT DR that was implanted 10/29/2021, serial number [id number]. 2. Explanted right atrial lead was a 5026-52 cm, serial number [id number], again implanted 2. 3. The explanted right ventricular ICD lead 6935M, serial number [id number]. Again, it was implante d 10/29/2021. Explanted today. IMPRESSION: Successful dual chamber rate responsive implantable cardiac defibrillator explantation s econdary to wound dehiscence and pocket infection. PLAN: Transfer back to the telemetry floor. We will fit the patient for a LifeVest. Continue iodof orm packing changes based on the saturation and establish patient for home care wound changes and she will follow up in our office in 1 week's time. Job ID: [id number]
== END 2021-12-16 21:20 | disposition home health service (06) | DRG 40 ==
LOC: ED 18:17 → SUATTDRO 12-11 01:04 → 2N 12-11 01:04 → 2S 12-14 08:55

== ENCOUNTER 2022-03-20 07:01 | Inpatient (IN) ==
--- NOTE | 2022-03-20 07:13 | Emergency Department Note ---
Impression & Plan Acute pulmonary edema, Hypoxia, Acute congestive heart failure ED Provider Note Name: MAEVE GARCIA Age: 66 Sex: F Arrives Via: Ambulance Informant: Patient, daughter ED Provider: Jose Champagne MD Chief Complaint: Shortness of breath Impression: As per impressions above Medical Decision Making: Pleasant 66-year-old female with a history of CAD, cardiomyopathy, type 2 diabetes, depression, hypertension, and known heart failure arrives for evaluation of worsening shortness of breath over the last 2 days. Fluid overloaded by examination. She is hypoxic to 87% on room air. She was placed on nasal cannula and is breathing much better. Chest x-ray is consistent with pulmonary edema. BNP is also elevated. She was given 40 mg IV Lasix and [place] [facility] was consulted for further management. Symptoms are not consistent with PE/dissection. She does not appear to be infected at this time. Without significant chest pain or significant EKG ischemia no indication to start anticoagulation at this time. Prior Medical Record and Triage/Nursing Notes reviewed by Me Additional history obtained from chart and daughter Differentials:Reactive airway disease, pneumonia, pneumothorax, COPD, CHF, infections, cardiac ischemia, pulmonary embolism, musculoskeletal, gastrointestinal, as well as other pathologies. Vital Signs: reviewed and remarkable for hypoxia Interventions: lasix 40mg iv Labs:Reviewed and remarkable for elevated BNP Imagin view chest x-ray interpreted by me shows bilateral pulmonary co ngestion consistent with pulmonary edema. EKG:As per my interpretation. Indication shortness of breath. Sinus at 67 bpm with a QTC of 471. There is a bifascicular block. When compared to EKG from March 06, 2022 there was a intraventricular block at that time. Poor b aseline on lateral leads Consults:Dr Aram Cavanaugh Hospitalist Plan: Disposition:Hospitalization. Condition: Good History of Present Illness:66-year-old female arrives for evaluation of shortness of breath. Patient with a long history of CHF with previous hospitalizations including recent hospitalization for cardiac arrest as well as pacemaker replacement. She notes that she had worsening shortness of breath starting yesterday morning. She called her PCP who advised taking extra dose of her torsemide. She states that over the evening shortness of breath is worsening. She states any laying flat or exertion makes her shortness of breath worse. Mild swelling in the legs has increased. Denies any falls, trauma, injuries. Has no current chest pain and while sitting up she is not significantly short of breath. EMS had been called to the house about her O2 sats in the 80s. She was placed on 2 L nasal cannula with resolution of shortness of breath and hypoxia. ROS: See above HPI for pertinent positives & negatives. A total of 10 systems reviewed and were otherwise negative. Past Medical History:See Below Past Surgical History:See Below Family History:See Below Social History:See Below Home Medications:See Below Allergies:See Below Vitals:Blood Pressure: 158/82, Pulse 79, RR 18, T 36.6C, O2 87% on RA Physical Exam: GENERAL: Patient is tired appearing and in mild distress. EYES: No scleral icterus, unremarkable pupils. ENT: Mucous membranes moist, no nasal congestion. NECK: No masses appreciated, nomeningismus, trachea is midline. CHEST: Large bruising over pacemaker right upper chest. RESPIRATORY: Diffuse crackles and wet lung sounds throughout with decreased breath sounds at bases. CARDIOVASCULAR: Regular rate and rhythm.No murmurs, rubs, gallops appreciated. GASTROINTESTINAL: Abdomen soft, non-tender, no peritonitis.Bowel sounds positive.No masses appreciated. BACK: No midline tenderness, no CVA tenderness EXTREMITIES: Normal motion all extremities, no cyanosis, ++ edema. NEUROLOGIC: Alert and oriented, no acute motor or sensory deficits, no focal weakness, cranial nerves grossly intact. SKIN: No rash, no jaundice, no diaphoresis. PSYCH: Appropriate GCS: 15 ED Course: Times/Reassessments: Patient much improved on nasal cannula. She is breathing comfortably. She is agreeable to hospitalization Jose Champagne MD Past Med/Surg History Medical History Acute non-ST elevation myocardial infarction (NSTEMI) Anemia Arthritis CAD (coronary artery disease) 02/2020-DORIAN x2 to mid LAD 04/2020 cardiac cath demonstrated patent stents and nonobstructive disease Depression Diabetic polyneuropathy DMII (diabetes mellitus, type 2) GERD (gastroesophageal reflux disease) HTN (hypertension) Ischemic cardiomyopathy DAVID (obstructive sleep apnea) Pulmonary edema Respiratory failure STEMI (ST elevation myocardial infarction) Surgical History History of appendectomy History of carpal tunnel surgery Hx of cholecystectomy No pertinent past surgical history S/P arterial stent S/P FELA (total abdominal hysterectomy) Family History Other Deep vein thrombosis Social History Smoking Status: Never smoker Tobacco Type: Cigarettes Second Hand Exposure: No; Hx Alcohol Use: No Hx Substance Use: No Preferred Language: Honduran Communication Ability: Effective Visual Impairment: No Limitations Hearing Ability: Normal Test Department Helper Required: No Beliefs That Will Affect Care: None marital status: Current Living Situation: Spouse Current Living Situation Comment: The patient states that she lives with her child and their fianc. current occupational status: unemployed How many Children do You have: 3 Feels Safe at Home: Yes Assistive Devices: None Allergies Allergies Allergy/AdvReac Type Severity Reaction Status Date / Time hydrocodone Allergy Intermediate Hives Verified 03/06/22 10:26 pine nut Allergy Intermediate Hives Verified 03/06/22 10:26 empagliflozin AdvReac Intermediate DIARRHEA--PER Verified 03/06/22 10:26 [From Jardiance] GMG lactose AdvReac Intermediate Gastrointestinal Verified 03/06/22 10:26 Upset semaglutide AdvReac Intermediate Diarrhea Verified 03/06/22 10:26 vaccine adjuvant system, AdvReac Intermediate LETHARGIC, Verified 03/06/22 10:26 AS01B liposomal PAIN, [From Shingrix (PF)] FATIGUE varicella-zoster virus AdvReac Intermediate LETHARGIC, Verified 03/06/22 10:26 glycoprotein E, recombinant PAIN, [From Shingrix (PF)] FATIGUE Home Meds Home Medications Medication Instructions Recorded Confirmed sacubitril 24 mg-valsartan 26 mg 1 tab PO BID 12/04/21 03/20/22 tablet (Entresto) famotidine 20 mg tablet (Pepcid) 20 mg PO DAILY 12/10/21 03/20/22 metoprolol succinate 50 mg 75 mg PO BID 12/10/21 03/20/22 tablet,extended release 24 hr dapagliflozin 10 mg tablet 10 mg PO DAILY 01/17/22 03/20/22 (Farxiga) dulaglutide 0.75 mg/0.5 mL 0.75 mg subcut WK 03/06/22 03/20/22 subcutaneous pen injector (Trulicity) Previous Rx's Medication Instructions Recorded aspirin 81 mg tablet,delayed 81 mg PO QAM 60 days #30 tabs 07/25/21 release (Kyle Low Dose Aspirin) atorvastatin 80 mg tablet (Lipitor) 80 mg PO HS 60 days #30 tabs 07/25/21 ezetimibe 10 mg tablet 10 mg PO DAILY 60 days #30 tabs 07/25/21 metformin 500 mg tablet,extended 500 mg PO BIDM 60 days #60 tabs 07/25/21 release 24 hr nitroglycerin 0.4 mg sublingual 0.4 mg sublingual UD PRN Chest 07/25/21 tablet (Nitrostat) Pain 60 days #90 tabs oxybutynin chloride 5 mg tablet 5 mg PO DAILY 60 days #30 tabs 07/25/21 pantoprazole 20 mg tablet,delayed 20 mg PO DAILY 60 days #30 tabs 07/25/21 release (Protonix) sertraline 100 mg tablet (Zoloft) 100 mg PO QAM 60 days #30 tabs 07/25/21 ticagrelor 90 mg tablet (Brilinta) 90 mg PO BID #60 tabs 07/25/21 ferrous sulfate 325 mg (65 mg 325 mg PO QAM #30 tabs 12/05/21 iron) tablet,delayed release torsemide 10 mg tablet See Rx Instructions .Route 01/20/22 .COMPLEX #60 tabs Results & Data (ED) Vital Signs Vital Signs - 24 hr 03/20/22 07:01 03/20/22 07:01 03/20/22 08:00 Temperature 36.6 C Temperature Source Oral Pulse Rate 82 Pulse Rate from SpO2 Sensor Respiratory Rate 18 Respiratory Effort / Characteristics Non-Labored Respiratory Depth Normal Respiratory Pattern Regular Blood Pressure 168/73 H Blood Pressure Mean 104 Pulse Oximetry 94 94 87 L Oxygen Delivery Method Room Air Room Air Room Air Oxygen Flow Rate Sepsis Recent Fever Within 48 Hours No Sepsis New/Unexplained Change in Mental Status N/A Sepsis Action Taken by Nursing No Action Required 03/20/22 08:01 03/20/22 08:00 03/20/22 08:30 Temperature Temperature Source Pulse Rate 70 70 Pulse Rate from SpO2 Sensor 71 74 Respiratory Rate 16 20 Respiratory Effort / Characteristics Respiratory Depth Respiratory Pattern Blood Pressure 168/91 H 171/104 H Blood Pressure Mean 116 126 Pulse Oximetry 97 98 97 Oxygen Delivery Method Nasal Cannula Oxygen Flow Rate 2 Sepsis Recent Fever Within 48 Hours Sepsis New/Unexplained Change in Mental Status Sepsis Action Taken by Nursing Laboratory Data Result diagrams: 03/20/22 06:38 03/20/22 06:38 Lab Results 03/20/22 03/20/22 03/20/22 Range/Units 06:38 06:38 07:20 WBC 8.11 (4.8-10.8) K/ul RBC 2.83 L (3.93-5.22) M/uL Hgb 8.7 L (12.0-16.0) g/dl Hct 27.2 L (34.1-44.9) % MCV 96.1 (80.0-100.0) fL MCH 30.7 (25.0-34.0) pg MCHC 32.0 (32.0-36.0) g/dL RDW Std Deviation 49.8 H (36.4-46.3) fL RDW Coeff of Ronaldo 14.4 (11.5-14.5) % Plt Count 231 (130-400) K/uL MPV 10.3 (9.4-12.3) fL Immature Gran % (Auto) 0.5 % Neut % (Auto) 85.2 % Lymph % (Auto) 8.5 % Cecil % (Auto) 3.6 % Eos % (Auto) 1.6 % Baso % (Auto) 0.6 % Neut # (Auto) 6.91 H (1.4-6.5) K/uL Lymph # (Auto) 0.69 L (1.2-3.4) K/uL Cecil # (Auto) 0.29 (0.24-0.82) K/uL Eos # (Auto) 0.13 (0-0.50) K/uL Baso # (Auto) 0.05 (0-0.2) K/uL Immature Gran # (Auto) 0.04 H (0.00-0.02) K/uL Sodium 139 (136-145) mmol/L Potassium 4.4 (3.5-5.1) mmol/L Chloride 106 (98-107) mmol/L Carbon Dioxide 24 (21-32) mmol/L Anion Gap 9 (3-11) BUN 34 H (6-23) mg/dl Creatinine 1.24 H (0.6-1.2) mg/dl Est Cr Clr Drug Dosing Not Reportable Est GFR ( Amer) 53.2 ml/min Est GFR (Non-Af Amer) 45.9 ml/min BUN/Creatinine Ratio 27.4 H (10-20) Glucose 225 H (70-99(Fasting)) mg/dl Calcium 9.2 (8.5-10.1) mg/dl Magnesium 1.7 (1.7-2.4) mg/dl Total Bilirubin 0.7 (0.2-1.0) mg/dl Direct Bilirubin 0.1 (0-0.2) mg/dl AST 14 (13-39) U/L ALT 5 L (7-52) U/L Alkaline Phosphatase 59 (34-104) U/L Troponin I High Sens 13.8 (0-14) pg/ml B-Natriuretic Peptide (0-100) pg/ml Total Protein 7.3 (6.0-8.3) gm/dl Albumin 4.0 (3.4-5.0) gm/dl Urine Color Yellow Urine Appearance Clear (Clear) Urine pH 5.0 (4.5-7.5) Ur Specific [place] 1.013 (1.000-1.030) Urine Protein 2+ H (Negative) Urine Glucose (UA) 3+ H (Negative) Urine Ketones Negative (Negative) Urine Blood 1+ H (Negative) Urine Nitrite Negative (Negative) Urine Bilirubin Negative (Negative) Urine Urobilinogen Negative (Negative) Ur Leukocyte Esterase Negative (Negative) Urine WBC (Auto) 1-5 (0-5) /hpf Urine RBC (Auto) 0-4 (0-4) /hpf U Hyaline Cast (Auto) 1-5 (0-5) /lpf U Epithel Cells (Auto) 5-10 H (0-5) /lpf Urine Bacteria (Auto) Negative (Negative) SARS-CoV-2, RNA, NAAT (NEGATIVE) 03/20/22 03/20/22 Range/Units 07:35 07:40 WBC (4.8-10.8) K/ul RBC (3.93-5.22) M/uL Hgb (12.0-16.0) g/dl Hct (34.1-44.9) % MCV (80.0-100.0) fL MCH (25.0-34.0) pg MCHC (32.0-36.0) g/dL RDW Std Deviation (36.4-46.3) fL RDW Coeff of Ronaldo (11.5-14.5) % Plt Count (130-400) K/uL MPV (9.4-12.3) fL Immature Gran % (Auto) % Neut % (Auto) % Lymph % (Auto) % Cecil % (Auto) % Eos % (Auto) % Baso % (Auto) % Neut # (Auto) (1.4-6.5) K/uL Lymph # (Auto) (1.2-3.4) K/uL Cecil # (Auto) (0.24-0.82) K/uL Eos # (Auto) (0-0.50) K/uL Baso # (Auto) (0-0.2) K/uL Immature Gran # (Auto) (0.00-0.02) K/uL Sodium (136-145) mmol/L Potassium (3.5-5.1) mmol/L Chloride (98-107) mmol/L Carbon Dioxide (21-32) mmol/L Anion Gap (3-11) BUN (6-23) mg/dl Creatinine (0.6-1.2) mg/dl Est Cr Clr Drug Dosing Est GFR ( Amer) ml/min Est GFR (Non-Af Amer) ml/min BUN/Creatinine Ratio (10-20) Glucose (70-99(Fasting)) mg/dl Calcium (8.5-10.1) mg/dl Magnesium (1.7-2.4) mg/dl Total Bilirubin (0.2-1.0) mg/dl Direct Bilirubin (0-0.2) mg/dl AST (13-39) U/L ALT (7-52) U/L Alkaline Phosphatase (34-104) U/L Troponin I High Sens (0-14) pg/ml B-Natriuretic Peptide 2560 H (0-100) pg/ml Total Protein (6.0-8.3) gm/dl Albumin (3.4-5.0) gm/dl Urine Color Urine Appearance (Clear) Urine pH (4.5-7.5) Ur Specific [place] (1.000-1.030) Urine Protein (Negative) Urine Glucose (UA) (Negative) Urine Ketones (Negative) Urine Blood (Negative) Urine Nitrite (Negative) Urine Bilirubin (Negative) Urine Urobilinogen (Negative) Ur Leukocyte Esterase (Negative) Urine WBC (Auto) (0-5) /hpf Urine RBC (Auto) (0-4) /hpf U Hyaline Cast (Auto) (0-5) /lpf U Epithel Cells (Auto) (0-5) /lpf Urine Bacteria (Auto) (Negative) SARS-CoV-2, RNA, NAAT NEGATIVE (NEGATIVE) Administered Medications Aspirin (Aspirin 81 Mg Ectab) [facility] [place]: 04/19/22 09:44 Last Admin: 03/20/22 12:20 Dose: 81 mg Documented By: MT Ferrous Sulfate (Ferrous Sulfate 325 Mg Tab) 325 mg PO QAM [facility] Stop: 04/19/22 09:59 Last Admin: 03/20/22 12:20 Dose: 325 mg Documented By: MT Metoprolol Succinate (Metoprolol Succ 25mg Ext Rel Tab) 75 mg PO BID [facility] Stop: 04/19/22 09:59 Last Admin: 03/20/22 12:21 Dose: 75 mg Documented By: MT Oxybutynin Chloride (Oxybutynin Chloride 5 Mg Tab) 5 mg PO DAILY [facility] Stop: 04/19/22 09:59 Last Admin: 03/20/22 12:21 Dose: 5 mg Documented By: MT Pantoprazole Sodium (Pantoprazole 40 Mg Tab) 40 mg PO DAILY [facility] Stop: 04/19/22 09:59 Last Admin: 03/20/22 12:20 Dose: 40 mg Documented By: MT Sacubitril/Valsartan (Valsartan/Sacubitril 26/24mg Tab) 1 tab PO BID [facility] Stop: 04/19/22 09:59 Last Admin: 03/20/22 12:22 Dose: 1 tab Documented By: MT Sertraline HCl (Sertraline Hcl 100 Mg Tablet) 100 mg PO QAM [facility] Stop: 04/19/22 09:59 Last Admin: 03/20/22 12:21 Dose: 100 mg Documented By: MT Ticagrelor (Ticagrelor 90 Mg Tab) 90 mg PO BID [facility] Stop: 04/19/22 09:59 Last Admin: 03/20/22 12:22 Dose: 90 mg Documented By: MT Discontinued Medications Furosemide (Furosemide 40 Mg/4 Ml Vial) 40 mg IV ONE ONE Stop: 03/20/22 08:12 Last Admin: 03/20/22 09:58 Dose: 40 mg Documented By: DHAVAL Imaging Data Radiologist's Impression: Chest X-Ray 03/20/22 07:10 SINGLE VIEW CHEST CLINICAL HISTORY: Dyspnea. FINDINGS: An AP, portable, upright chest radiograph is compared to study dated 03/06/2022. A 2-lead cardiac AICD is unchanged in position and partially obscures the right upper chest. The heart is enlarged noting atherosclerotic calcification of the thoracic aorta. There is pulmonary vascular congestion. Bilateral airspace opacities likely represent interstitial edema. A coronary artery stent is observed. Small pleural effusions are suspected. No pneumothorax is seen. The skeletal structures are osteopenic. The bony thorax is grossly intact. Cholecystectomy clips are noted in the right upper quadrant. IMPRESSION: 1. Cardiomegaly and AICD with evidence of congestive failure. 2. Bilateral airspace opacities likely represent pulmonary edema. Correlate clinically for evidence of a superimposed infectious/inflammatory pneumonitis. Radiographic follow-up to resolution is recommended. 3. Small pleural effusions. ACT 112: Negative or not required by law. Electronically signed by: Jorge Crowe M.D. 03/20/2022 7:40 AM Discharge Plan Visit Data Chief Complaint: Shortness of Breath/Dyspnea Stated Complaint: SOB, EDEMA ED Provider: Jose Champagne Discharge Problem: Acute pulmonary edema, Hypoxia, Acute congestive heart failure Patient Disposition: Admitted As Inpatient Discharge Instructions Interventions: ED Discharge Assessment Last Done: 03/20/22 11:38 : Acute congestive heart failure Qualifiers: Heart failure type: unspecified Qualified Code(s): I50.9 - Heart failure, unspecified
[2022-03-20 07:21] LABS: Basophils # (auto) 0.05 K/uL (0-0.2); Basophils % (auto) 0.6 %; Eosinophils # (auto) 0.13 K/uL (0-0.50); Eosinophils % (auto) 1.6 %; Hematocrit (blood only) 27.2 % (34.1-44.9); Hemoglobin 8.7 g/dl (12.0-16.0); Immature Granulocytes # (auto) 0.04 K/uL (0.00-0.02); Immature Granulocytes % (auto) 0.5 %; Lymphocytes # (auto) 0.69 K/uL (1.2-3.4); Lymphocytes % (auto) 8.5 %; Mean Corpuscular Hemoglobin 30.7 pg (25.0-34.0); Mean Corpuscular Volume 96.1 fL (80.0-100.0); Mean Platelet Volume 10.3 fL (9.4-12.3); Monocytes # (auto) 0.29 K/uL (0.24-0.82); Monocytes % (auto) 3.6 %; Neutrophils # (auto) 6.91 K/uL (1.4-6.5); Neutrophils % (auto) 85.2 %; Platelet Count 231 K/uL (130-400); RDW Coefficient of Variation 14.4 % (11.5-14.5); RDW Standard Deviation 49.8 fL (36.4-46.3); Red Blood Count 2.83 M/uL (3.93-5.22); White Blood Count 8.11 K/ul (4.8-10.8)
[2022-03-20 07:36] LABS: Appearance Urine Clear (Clear); Bacteria Urine Automated Negative (Negative); Bilirubin Urine Negative (Negative); Blood Urine 1+ (Negative); Color Urine Yellow; Glucose Urine UA 3+ (Negative); Ketones Urine Negative (Negative); Leukocyte Esterase Urine Negative (Negative); Nitrite Urine Negative (Negative); Protein Urine 2+ (Negative); RBC Urine Automated 0-4 /hpf (0-4); Specific Gravity Urine 1.013 (1.000-1.030); Urobilinogen Urine Negative (Negative)
--- NOTE | 2022-03-20 07:42 | XRay Report ---
SINGLE VIEW CHEST CLINICAL HISTORY: Dyspnea. FINDINGS: An AP, portable, upright chest radiograph is compared to study dated 03/06/2022. A 2-lead c ardiac AICD is unchanged in position and partially obscures the right upper chest. The heart is enlar ged noting atherosclerotic calcification of the thoracic aorta. There is pulmonary vascular congestio n. Bilateral airspace opacities likely represent interstitial edema. A coronary artery stent is obser rey. Small pleural effusions are suspected. No pneumothorax is seen. The skeletal structures are oste openic. The bony thorax is grossly intact. Cholecystectomy clips are noted in the right upper quadran t. IMPRESSION: 1. Cardiomegaly and AICD with evidence of congestive failure. 2. Bilateral airspace opacities likely represent pulmonary edema. Correlate clinically for evidence o f a superimposed infectious/inflammatory pneumonitis. Radiographic follow-up to resolution is recomme nded. 3. Small pleural effusions. ACT 112: Negative or not required by law. Electronically signed by: Jorge Crowe M.D. 03/20/2022 7:40 AM
[2022-03-20 07:50] LABS: Troponin I High Sensitivity 13.8 pg/ml (0-14)
[2022-03-20 08:08] LABS: Alanine Aminotransferase 5 U/L (7-52); Alkaline Phosphatase 59 U/L (34-104); Anion Gap 9 (3-11); Aspartate Aminotransferase 14 U/L (13-39); BUN Creatinine Ratio 27.4 (10-20); Bilirubin Direct 0.1 mg/dl (0-0.2); Bilirubin,Total 0.7 mg/dl (0.2-1.0); Blood Urea Nitrogen 34 mg/dl (6-23); Calcium 9.2 mg/dl (8.5-10.1); Carbon Dioxide 24 mmol/L (21-32); Chloride 106 mmol/L (98-107); Est GFR (African American) 53.2 ml/min; Est GFR (Non-African American) 45.9 ml/min; Glucose 225 mg/dl (70-99(Fasting)); Magnesium 1.7 mg/dl (1.7-2.4); Potassium 4.4 mmol/L (3.5-5.1); Sodium 139 mmol/L (136-145); Total Protein 7.3 gm/dl (6.0-8.3)
[2022-03-20] MEDS ORDERED: FUROSEMIDE 40 MG/4 ML VIAL IV ONE (08:11)
--- NOTE | 2022-03-20 08:54 | History & Physical Report ---
Date of Service March 20, 2022 Assessment & Plan (1) Acute on chronic heart failure with reduced ejection fraction and diastolic dysfunction: (2) Hypoxia: (3) CAD (coronary artery disease): (4) Ischemic cardiomyopathy: (5) Hypertension: Plan: -Admit to PCU -Creatinine/BUN slightly improved compared to her baseline, nonpitting peripheral edema BLE, rings on fingers feel tight, shortness of breath, pleural effusions on chest x-ray, weight gain, hypoxia of O2 sats to 88% on room air, all symptoms of acute CHF exacerbation -Pt educated on excess fluid consumption within short time frame and consequently fluid overload. Likely that single diarrhea episode was prompted by buttermilk drinking/eating with potato chips. If worsening diarrhea will add stool studies and check guiac. -Place Lerner in the ER, scheduled for Lasix 40 mg IV but has not received it yet. Patient took a total of torsemide 30 mg yesterday-Home regimen includes 20 mg on Tuesdays and and 10 mg all other days. Will continue with IV diuresis and hold po torsemide -Check 2D echo, last showed EF of 20 to 25% in December 2021 -BNP is 2560 on admission - Strict I/Os, fluid restriction of 1500 ml, daily weights,pt dry weight= 152 lbs - Consider cardiology consultation - follows closely with Dr. Rosenthal s/p pacemaker insertion which occurred ~ 2 weeks ago and Carole Alejo PA-C as outpatient, has appt in 2 weeks in clinic -Patient did not take any of her morning meds this morning -Patient does not use CPAP at bedtime for about 2 years since recall, likely will need repeat sleep study to qualify - Continue entresto, metoprolol, asa, brillinta, atorvastatin and give morning meds now since missed this am (6) Anemia: Plan: - Hemoglobin of 8.7 today, appears to be about her baseline, takes iron suppleme ntation, continue (7) DMII (diabetes mellitus, type 2): Plan: -ISS with Accu-Zoila LIRA -Last A1c was 7.6 on 02/22/2022 -Holding metformin, farxgia, takes trulicity inj on Sundays (8) DAVID (obstructive sleep apnea): Plan: Encouraged to wear CPAP as above DVT PPx: - teds, scds, asa and brillinta CODE: Full code Dispo: From home, likely to remain in the hospital x 1-2 days History of Present Illness Chief Complaint: Shortness of breath Primary Care Provider: Scarlett Pires MD This is a 66-year-old female with PMHx of CAD sp stents, hx of STEMI, EF of 35% on most recent echo, chronic systolic CHF, sinus bradycardia, recent ICD placement on 10/29/21 complicated by site infection/dehiscence and subsequent removal of pacemaker , temporary lifeVest, and then recent replacement with a ICD/pacemaker by Dr. Rosenthal on 03/06/22. She has had multiple admissions for CHF exacerbation in the past year. Other PMHx includes type 2 diabetes, diabetic polyneuropathy, DAVID supposed to be on CPAP, but is not using since her machine was recalled; history of acute respiratory failure with hypoxia, GERD, CKD stage III, anemia, depression, and has had COVID infection. Today the patient presents for worsening shortness of breath. Normally weighs 152. Has not weighed herself because of being on holiday and "pigging out" but was planning on starting to weigh herself this week again. Yesterday the Pt had excess fluids: this included 2 bottles of water 16.9 oz each, 3 bottles Nathans Twist strawberry lemonade 16.9 oz each, a 12 oz cup of coffee, a bowl of buttermilk with potato chips, and then drank a 12 oz cup of buttermilk mixed with pepper in honor of her father. She ate grilled cheese an d tomato soup for lunch and had spaghetti last evening with homemade sauce. She reports noticing swelling in her feet and ankles, her rings are tight today and could hear the fluid in her chest. Took a total of 30 mg of torsemide yesterday - her normal 20 mg in the morning and 10 mg extra at night due to worsening shortness of breath. Pt presents here with her daughter as she does not feel the fluid is gone. Pt reports having an episode of diarrhea within the past day. Denies any other complaints. Allergies Allergy/AdvReac Type Severity Reaction Status Date / Time hydrocodone Allergy Intermediate Hives Verified 03/06/22 10:26 pine nut Allergy Intermediate Hives Verified 03/06/22 10:26 empagliflozin AdvReac Intermediate DIARRHEA--PER Verified 12/14/22 10:26 [From Jardiance] GMG lactose AdvReac Intermediate Gastrointestinal Verified 03/06/22 10:26 Upset semaglutide AdvReac Intermediate Diarrhea Verified 03/06/22 10:26 vaccine adjuvant system, AdvReac Intermediate LETHARGIC, Verified 03/06/22 10:26 AS01B liposomal PAIN, [From Shingrix (PF)] FATIGUE varicella-zoster virus AdvReac Intermediate LETHARGIC, Verified 03/06/22 10:26 glycoprotein E, recombinant PAIN, [From Shingrix (PF)] FATIGUE Home Medications Medication Instructions Recorded Confirmed Type aspirin 81 mg tablet,delayed 81 mg PO QAM 60 days #30 tabs 07/25/21 03/20/22 Rx release (Kyle Low Dose Aspirin) atorvastatin 80 mg tablet (Lipitor) 80 mg PO HS 60 days #30 tabs 07/25/21 03/20/22 Rx ezetimibe 10 mg tablet 10 mg PO DAILY 60 days #30 tabs 07/25/21 03/20/22 Rx metformin 500 mg tablet,extended 500 mg PO BIDM 60 days #60 tabs 07/25/21 03/20/22 Rx release 24 hr nitroglycerin 0.4 mg sublingual 0.4 mg sublingual UD PRN Chest 07/25/21 03/20/22 Rx tablet (Nitrostat) Pain 60 days #90 tabs oxybutynin chloride 5 mg tablet 5 mg PO DAILY 60 days #30 tabs 07/25/21 03/20/22 Rx pantoprazole 20 mg tablet,delayed 20 mg PO DAILY 60 days #30 tabs 07/25/21 03/20/22 Rx release (Protonix) sertraline 100 mg tablet (Zoloft) 100 mg PO QAM 60 days #30 tabs 07/25/21 03/20/22 Rx ticagrelor 90 mg tablet (Brilinta) 90 mg PO BID #60 tabs 07/25/21 03/20/22 Rx sacubitril 24 mg-valsartan 26 mg 1 tab PO BID 12/04/21 03/20/22 History tablet (Entresto) ferrous sulfate 325 mg (65 mg 325 mg PO QAM #30 tabs 12/05/21 03/20/22 Rx iron) tablet,delayed release famotidine 20 mg tablet (Pepcid) 20 mg PO DAILY 12/10/21 03/20/22 History metoprolol succinate 50 mg 75 mg PO BID 12/10/21 03/20/22 History tablet,extended release 24 hr dapagliflozin 10 mg tablet 10 mg PO DAILY 01/17/22 03/20/22 History (Farxiga) torsemide 10 mg tablet See Rx Instructions .Route 01/20/22 03/20/22 Rx .COMPLEX #60 tabs dulaglutide 0.75 mg/0.5 mL 0.75 mg subcut WK 03/06/22 03/20/22 History subcutaneous pen injector (Trulicity) Past Med/Surg History Medical History Acute non-ST elevation myocardial infarction (NSTEMI) Anemia Arthritis CAD (coronary artery disease) 02/2020-DORIAN x2 to mid LAD 04/2020 cardiac cath demonstrated patent stents and nonobstructive disease Depression Diabetic polyneuropathy DMII (diabetes mellitus, type 2) GERD (gastroesophageal reflux disease) HTN (hypertension) Ischemic cardiomyopathy DAVID (obstructive sleep apnea) Pulmonary edema Respiratory failure STEMI (ST elevation myocardial infarction) Surgical History History of appendectomy History of carpal tunnel surgery Hx of cholecystectomy No pertinent past surgical history S/P arterial stent S/P FELA (total abdominal hysterectomy) Family History Other Deep vein thrombosis Social History Smoking Status: Former smoker Tobacco Type: Cigarettes Second Hand Exposure: No; Hx Alcohol Use: No Hx Substance Use: No Preferred Language: Amharic Communication Ability: Effective Visual Impairment: No Limitations Hearing Ability: Normal Blood Bank Calendar Control Clerk Required: No Beliefs That Will Affect Care: None marital status: Current Living Situation: Spouse Current Living Situation Comment: The patient states that she lives with her child and their fianc. current occupational status: unemployed How many Children do You have: 3 Other Information That Helps Us Care for You: No Feels Safe at Home: Yes Safety Concerns: Feels Safe At This Time Assistive Devices: CPAP, Denture - Upper and Denture - Lower Review of Systems Review of Systems: Constitutional: No fever, sweats or chills Eyes: No diplopia, no worsening or blurred vision ENT: normal hearing, no trouble swallowing Respiratory: + as per HPI with CAIN and SOB at rest, No cough, sputum Cardiovascular: No chest pain, tightness or palpitations Abdomen: No pain, nausea, vomiting, + diarrhea x 1, no constipation Musculoskeletal: No joint pain, calf pain, + lower leg swelling Neurologic: No weakness, numbness/tingling, or balance problems Psychiatric: No anxiety or depression Skin: No rash or itch Physical Exam Physical Exam: General: awake, alert, no apparent distress Head: Normocephalic, atraumatic ENT: PERRL, EOMI, no pharyngeal exudate, mucous membranes moist, + missing multiple teeth Chest: + large right chest wall hematoma overlying pacemaker placement, ecchymosis is resolving, incision is healing, + on 2 L via NC, absent breath sounds at bases bilaterally, faint crackles, no wheezing or rales. Cardiac: Regular rate and rhythm, no murmur, no JVD, normal peripheral pulses, good capillary refill Abdominal: NABS x 4 quadrants, soft, nondistended, nontender to palpation, no rebound or guarding Extremities: Normal inspection, 2+ nonpitting peripheral edema BLE, no erythema, calfs nontender to palpation Psych: Normal mood and affect Neuro: AAO x 3, strength intact bilaterally and rated 5/5, no motor deficits, speech is clear, no peripheral sensory deficits Results & Data Results & Data ([facility]) Vital Signs (Past 12 Hours) Vital Signs Temp Pulse Resp BP Pulse Ox O2 Del Method O2 Flow Rate 03/20/22 08:01 97 Nasal Cannula 2 03/20/22 08:00 87 L Room Air 03/20/22 07:01 94 Room Air 03/20/22 07:01 36.6 C 82 18 168/73 H 94 Room Air Laboratory Results 03/20/22 03/20/22 03/20/22 07:40 07:35 07:20 WBC RBC Hgb Hct MCV MCH MCHC RDW Std Deviation RDW Coeff of Ronaldo Plt Count MPV Immature Gran % (Auto) Neut % (Auto) Lymph % (Auto) [place] % (Auto) Eos % (Auto) Baso % (Auto) Neut # (Auto) Lymph # (Auto) [place] # (Auto) Eos # (Auto) Baso # (Auto) Immature Gran # (Auto) Sodium Potassium Chloride Carbon Dioxide Anion Gap BUN Creatinine Est Cr Clr Drug Dosing Est GFR ( Amer) Est GFR (Non-Af Amer) BUN/Creatinine Ratio Glucose Calcium Magnesium Total Bilirubin Direct Bilirubin AST ALT Alkaline Phosphatase Troponin I High Sens B-Natriuretic Peptide 2560 H Total Protein Albumin Urine Color Yellow Urine Appearance Clear Urine pH 5.0 Ur Specific Witter 1.013 Urine Protein 2+ H Urine Glucose (UA) 3+ H Urine Ketones Negative Urine Blood 1+ H Urine Nitrite Negative Urine Bilirubin Negative Urine Urobilinogen Negative Ur Leukocyte Esterase Negative Urine WBC (Auto) 1-5 Urine RBC (Auto) 0-4 U Hyaline Cast (Auto) 1-5 U Epithel Cells (Auto) 5-10 H Urine Bacteria (Auto) Negative SARS-CoV-2, RNA, NAAT NEGATIVE 03/20/22 03/20/22 06:38 06:38 WBC 8.11 RBC 2.83 L Hgb 8.7 L Hct 27.2 L MCV 96.1 MCH 30.7 MCHC 32.0 RDW Std Deviation 49.8 H RDW Coeff of Ronaldo 14.4 Plt Count 231 MPV 10.3 Immature Gran % (Auto) 0.5 Neut % (Auto) 85.2 Lymph % (Auto) 8.5 [place] % (Auto) 3.6 Eos % (Auto) 1.6 Baso % (Auto) 0.6 Neut # (Auto) 6.91 H Lymph # (Auto) 0.69 L [place] # (Auto) 0.29 Eos # (Auto) 0.13 Baso # (Auto) 0.05 Immature Gran # (Auto) 0.04 H Sodium 139 Potassium 4.4 Chloride 106 Carbon Dioxide 24 Anion Gap 9 BUN 34 H Creatinine 1.24 H Est Cr Clr Drug Dosing Not Reportable Est GFR ( Amer) 53.2 Est GFR (Non-Af Amer) 45.9 BUN/Creatinine Ratio 27.4 H Glucose 225 H Calcium 9.2 Magnesium 1.7 Total Bilirubin 0.7 Direct Bilirubin 0.1 AST 14 ALT 5 L Alkaline Phosphatase 59 Troponin I High Sens 13.8 B-Natriuretic Peptide Total Protein 7.3 Albumin 4.0 Urine Color Urine Appearance Urine pH Ur Specific Witter Urine Protein Urine Glucose (UA) Urine Ketones Urine Blood Urine Nitrite Urine Bilirubin Urine Urobilinogen Ur Leukocyte Esterase Urine WBC (Auto) Urine RBC (Auto) U Hyaline Cast (Auto) U Epithel Cells (Auto) Urine Bacteria (Auto) SARS-CoV-2, RNA, NAAT Diagnostic Findings Chest X-Ray 03/20/22 07:10 SINGLE VIEW CHEST CLINICAL HISTORY: Dyspnea. FINDINGS: An AP, portable, upright chest radiograph is compared to study dated 03/06/2022. A 2-lead cardiac AICD is unchanged in position and partially obscures the right upper chest. The heart is enlarged noting atherosclerotic calcification of the thoracic aorta. There is pulmonary vascular congestion. Bilateral airspace opacities likely represent interstitial edema. A coronary artery stent is observed. Small pleural effusions are suspected. No pneumothorax is seen. The skeletal structures are osteopenic. The bony thorax is grossly intact. Cholecystectomy clips are noted in the right upper quadrant. IMPRESSION: 1. Cardiomegaly and AICD with evidence of congestive failure. 2. Bilateral airspace opacities likely represent pulmonary edema. Correlate clinically for evidence of a superimposed infectious/inflammatory pneumonitis. Radiographic follow-up to resolution is recommended. 3. Small pleural effusions. ACT 112: Negative or not required by law. Electronically signed by: Jorge Crowe M.D. 03/20/2022 7:40 AM ECG Additional Comments: Reviewed personally by myself Sinus rhythm, RBBB, left anterior fascicular block, Vent rate 67 bpm RI interval 110 QRS duration 142 QTC 471 Code Status & VTE Plan Code Status Full code - discussed with the patient and her daughter at bedside Supervising Physician Co-Signing Physician Notes Patient seen and examined by me, care coordinated with Richie Reeves PA-C, please refer to her note above for further detail. 66 yo F with CAD sp stents, hx of STEMI, EF of 35% on most recent echo, chronic systolic CHF, recent ICD placement on 10/29/21 complicated by site infection/dehiscence and subsequent removal of pacemaker , then recent replacement with a ICD/pacemaker by Dr. Rosenthal on 03/06/22. She presents with shortness of breath, elevated BNP, hypoxia, secondary to CHF exacerbation. This seems to be secondary to dietary indiscretion. In addition, current pacemaker surgical site with hematoma, ecchymosis, minimal erythema at the incision itself. Patient did not have a follow-up yet with cardiology after her procedure. History of pacer site infection on the left status post removal. Reviewing records, seems this was due to MSSA bacteremia. Currently patient is sitting up in bed in no acute distress she is alert oriented answering questions appropriately. She has a Lerner placed and she is diuresing well. She is utilizing supplemental oxygen via nasal cannula. Patient's daughter is present at the bedside. Heart sounds regular. Positive crackles on lung exam. Mild lower extremity edema. Abdomen soft nontender nondistended, with positive bowel sounds. Skin is warm and dry. Discussed findings with cardiology, and bottler was also called to examine the surgical site. Please see cardiology note for further detail. Plan to continue with diuresis. Plan to continue with aspirin and Brilinta. Blood cultures obtained. Empiric antibiotics ceftriaxone and vancomycin ordered. Avoid heparin Lovenox for DVT prophylaxis. MD Aram (1) Hypertension Hypertension type: essential hypertension Qualified Code(s): I10 - Essential (primary) hypertension
--- NOTE | 2022-03-20 09:12 | Emergency Department Note ---
ED Visit Note I personally performed a history and examined the patient in conjunction with Dr. Champagne. Additional information regarding the history, physical, assessment, and plan were discussed with supervising attending physician and are noted in their ED visit note. . Resident Activity Tracking Resident Involvement: Resident Care Provided Care Provided: Adult ED
--- NOTE | 2022-03-20 09:47 | Electrocardiogram Report ---
Test Reason : Blood Pressure : / mmHG Vent. Rate : 067 BPM Atrial Rate : 067 BPM P-R Int : 110 ms QRS Dur : 142 ms QT Int : 446 ms P-R-T Axes : 021 -70 -26 degrees QTc Int : 471 ms Sinus rhythm with sinus arrhythmia with short OR Right bundle branch block Left anterior fascicular block Bifascicular block Septal infarct (cited on or before 20-JUL-2021) T wave abnormality, consider lateral ischemia Abnormal ECG When compared with ECG of 06-MAR-2022 17:05, Right bundle branch block has replaced Non-specific intra-ventricular conduction block Confirmed by Juan Francisco Munroe ([id number]) on 03/20/2022 9:46:41 AM Referred By: REFERRED SELF Confirmed By:Immanuel Munroe
[2022-03-20] MEDS ORDERED: ONDANSETRON INJ 2 MG/ML 2 ML VIAL IV PRN (11:38)
[2022-03-20] MEDS ORDERED: CARBOHYDRATES FOR HYPOGLYCEMIA PO PRN (11:38)
[2022-03-20] MEDS ORDERED: ACETAMINOPHEN 325 MG TAB PO PRN (11:38)
[2022-03-20] MEDS ORDERED: GLUCOSE 40% GEL 15 GM TUBE PO PRN (11:38)
[2022-03-20] MEDS ORDERED: DEXTROSE 50% 50 ML SYRINGE IV PRN (11:38)
[2022-03-20] MEDS ORDERED: GLUCAGON FOR INJ 1 MG VIAL SQ PRN (11:38)
[2022-03-20] MEDS ORDERED: GLUCOSE 10 TAB/TUBE PO PRN (11:38)
[2022-03-20] MEDS: FERROUS SULFATE 325 MG TAB PO SCH (12:20)
[2022-03-20] MEDS: PANTOprazole 40 MG TAB PO SCH (12:20)
[2022-03-20] MEDS: ASPIRIN 81 MG ECTAB PO SCH (12:20)
[2022-03-20] MEDS: OXYBUTYNIN CHLORIDE 5 MG TAB PO SCH (12:21)
[2022-03-20] MEDS: METOPROLOL SUCC 25MG EXT REL TAB PO SCH ×2 (12:21→21:44)
[2022-03-20] MEDS: SERTRALINE HCL 100 MG TABLET PO SCH (12:21)
[2022-03-20] MEDS: VALSARTAN/SACUBITRIL 26/24MG TAB PO SCH ×2 (12:22→21:44)
[2022-03-20] MEDS: TICAGRELOR 90 MG TAB PO SCH ×2 (12:22→22:08)
--- NOTE | 2022-03-20 12:50 | Cardiology Consultation ---
Date of Consultation March 20, 2022 Assessment & Plan (1) Acute pulmonary edema: (2) Acute on chronic heart failure with reduced ejection fraction and diastolic dysfunction: (3) Pacemaker pocket hematoma: (4) Ischemic cardiomyopathy: Plan Patient admitted for worsening SOB consistent with Acute HFrEF exacerbation with hypoxia and b/l pleural effusions after significant dietary indiscretion. Continue IV furosemide today Patient was to start spironolactone 12.5 mg this week. Will initiate here to aid with fluid status. Monitor I+O's. Daily weight with standing scale 1500 ml fluid restriction Monitor renal function, electrolytes She also has a large hematoma within her right chest wall pacer pocket. patient is unsure if this is "worse" than last week. she denies drainage from site. No fever or chills. Pictures taken. discussed with EP, Dr. Rosenthal. She will evaluate Continue all other home medications including ASA, Brilinta, statin, Entresto Case discussed with Dr. Delcid Supervising Physician Co-Signing Physician Notes Supervising Physician Attestation: I have personally performed a history and physical examination on the patient. I agree with the physician assistant laboratory director's findings and plan as documented with the following additions. Subjective: Patient notes progressive shortness of breath and orthopnea, after significant dietary indiscretion yesterday. Of note, she has also been found to have a significant right infraclavicular pocket hematoma. Review of systems: No fevers or chills Exam: General appearance: Chronically ill in appearance, somewhat cachectic, but no acute distress Pulmonary: No rales or rhonchi, decreased breath sounds the bases Cardiovascular: Regular rhythm, no murmurs, trace lower extremity edema Chest wall: Right infraclavicular pocket hematoma with surrounding ecchymosis, incision without drainage Data: EKG performed today 03/20/2022: Sinus rhythm at 67 bpm, bifascicular block pattern, age undetermined anterior infarct pattern Assessment and Plan: Acute on chronic heart failure with reduced ejection fraction due to ischemic cardiomyopathy Severe left ventricular systolic dysfunction, bifascicular block History of ICD, wound dehiscence, for which device was extracted November, Reimplantation of dual-chamber AICD 03/11/2022 with pocket hematoma CHF-furosemide 40 mg daily. -Already appears to be improved from a volume status standpoint having received furosemide 40 mg IV x 1 at 8 am on 03/20/22 Pocket hematoma: Patient examined with Dr Rosenthal of EP . Pocket hematoma size improving over the last few days per patient. Zaheer fevers or chills. Is on dual antiplatelet therapy having presented with CHF and a NSTEMI 05/2021 and was found to have severe LAD stenosis at the distal aspect of the previously placed stent. Underwent successful PCI of mid LAD with single drug-eluting stent (2.75 x 23 mm Xience; postdilated with 3.0 NC) overlapping distal half of prior mid LAD stent. Patient therefore remains on ASA and Brilinta, thus increasing risk of bleeding , however I am concerned about the risks of repeat stent thrombosis/reocclusion if her antiplatelet therapy is interrupted. Dr Rosenthal and I discussed best options of treatment for the pocket hematoma. Per patient's description it is already getting smaller, resorbing on its own. Hold off on operative drainage for now and proceed with observation. We will obtain blood cultures x2, and place patient on empiric antibiotics. DVT prophylaxis: SCDs , avoid heparin or lovenox due to pocket hematoma. Case discussed with Frances Alejo PA-C, Dr Rosenthal , and Rand Banegas PA-C for the purpose of coordination of care. Wilmer Delcid, History of Present Illness Reason for Consultation: CHF Requesting Physician: Elba Reeves PA-C Attending Physician: Dr. Delcid History of Present Illness Patient is a complex 66 year old female known to [facility], Dr. Delcid/Dr. Rosenthal/Tristan History includes: Device pocket infection Dual chamber ICD pocket infection extracted on 12/14/2021; Reimplantation of dual chamber ICD 03/06/22 with right atrial and right ventricular leads, unable to place LV lead ICM (12/2020 EF 30-35% down from 45%; 05/2021 25-30%; 06/2021 20-25%) s/p dual chamber ICD 10/29/2021 (unable to get the C/S or left bundle lead in) RBBB LAFB Sinus Bradycardia CAD s/p repeat DORIAN to LAD; h/o apical CA (NSTEMI 05/2021 with flash pulmonary edema; got another DORIAN to mLAD (distal to the prior stent) HTN HLD Chronic heart failure with reduced EF, NYHA Class II DAVID on CPAP but her machine was recalled so not wearing one right now DM KD stage III GERD Anemia of chronic disease Patient recently underwent reimplantation of dual lead ICD on the right chest wall on 03/06/22. Tolerated procedure without issue. Yesterday patient began to notice increased SOB, fluid retention. She took an additional torsemide, to equal 30 mg. She noted frequent urination last night, however she continued to develop worsening SOB and EMS was summoned. on arrival, she was found to be hypoxic with O2 in the 80's. she was started on supplemental O2 and brought to ER for evaluation. Chest xray on arrival demonstrated pulm congestion and small b/l pleural effusions. She was started on IV furosemide and already nurse is reporting aggressive diuresis having to empty her aceves multiple times. Patient reports her SOB has already improved from last evening. Still noting mild "crackles" in her chest. No chest pain. Large hematoma noted around device site. No erythema or drainage. Multiple stages of bruising. Patient does not report if hematoma is worse or better than evaluation last week. She admits to significant dietary indiscretion at home, likely causing her fluid retention, CHF exacerbation. Allergies Allergy/AdvReac Type Severity Reaction Status Date / Time hydrocodone Allergy Intermediate Hives Verified 03/06/22 10:26 pine nut Allergy Intermediate Hives Verified 03/06/22 10:26 empagliflozin AdvReac Intermediate DIARRHEA--PER Verified 03/06/22 10:26 [From Jardiance] GMG lactose AdvReac Intermediate Gastrointestinal Verified 03/06/22 10:26 Upset semaglutide AdvReac Intermediate Diarrhea Verified 03/06/22 10:26 vaccine adjuvant system, AdvReac Intermediate LETHARGIC, Verified 03/06/22 10:26 [id number] liposomal PAIN, [From Shingrix (PF)] FATIGUE varicella-zoster virus AdvReac Intermediate LETHARGIC, Verified 03/06/22 10:26 glycoprotein E, recombinant PAIN, [From Shingrix (PF)] FATIGUE Home Medications Medication Instructions Recorded Confirmed Type aspirin 81 mg tablet,delayed 81 mg PO QAM 60 days #30 tabs 07/25/21 03/20/22 Rx release (Kyle Low Dose Aspirin) atorvastatin 80 mg tablet (Lipitor) 80 mg PO HS 60 days #30 tabs 07/25/21 03/20/22 Rx ezetimibe 10 mg tablet 10 mg PO DAILY 60 days #30 tabs 07/25/21 03/20/22 Rx metformin 500 mg tablet,extended 500 mg PO BIDM 60 days #60 tabs 07/25/21 03/20/22 Rx release 24 hr nitroglycerin 0.4 mg sublingual 0.4 mg sublingual UD PRN Chest 07/25/21 03/20/22 Rx tablet (Nitrostat) Pain 60 days #90 tabs oxybutynin chloride 5 mg tablet 5 mg PO DAILY 60 days #30 tabs 07/25/21 03/20/22 Rx pantoprazole 20 mg tablet,delayed 20 mg PO DAILY 60 days #30 tabs 07/25/21 03/20/22 Rx release (Protonix) sertraline 100 mg tablet (Zoloft) 100 mg PO QAM 60 days #30 tabs 07/25/21 03/20/22 Rx ticagrelor 90 mg tablet (Brilinta) 90 mg PO BID #60 tabs 07/25/21 03/20/22 Rx sacubitril 24 mg-valsartan 26 mg 1 tab PO BID 12/04/21 03/20/22 History tablet (Entresto) ferrous sulfate 325 mg (65 mg 325 mg PO QAM #30 tabs 12/05/21 03/20/22 Rx iron) tablet,delayed release famotidine 20 mg tablet (Pepcid) 20 mg PO DAILY 12/10/21 03/20/22 History metoprolol succinate 50 mg 75 mg PO BID 12/10/21 03/20/22 History tablet,extended release 24 hr dapagliflozin 10 mg tablet 10 mg PO DAILY 01/17/22 03/20/22 History (Farxiga) torsemide 10 mg tablet See Rx Instructions .Route 01/20/22 03/20/22 Rx .COMPLEX #60 tabs dulaglutide 0.75 mg/0.5 mL 0.75 mg subcut WK 03/06/22 03/20/22 History subcutaneous pen injector (Trulicity) Patient History Medical History Acute non-ST elevation myocardial infarction (NSTEMI) Anemia Arthritis CAD (coronary artery disease) 02/2020-DORIAN x2 to mid LAD 04/2020 cardiac cath demonstrated patent stents and nonobstructive disease Depression Diabetic polyneuropathy DMII (diabetes mellitus, type 2) GERD (gastroesophageal reflux disease) HTN (hypertension) Ischemic cardiomyopathy DAVID (obstructive sleep apnea) Pulmonary edema Respiratory failure STEMI (ST elevation myocardial infarction) Surgical History History of appendectomy History of carpal tunnel surgery Hx of cholecystectomy No pertinent past surgical history S/P arterial stent S/P FELA (total abdominal hysterectomy) Family History Other Deep vein thrombosis Social History Smoking Status: Former smoker Tobacco Type: Cigarettes Second Hand Exposure: No; Hx Alcohol Use: No Hx Substance Use: No Preferred Language: Slovak Communication Ability: Effective Visual Impairment: No Limitations Hearing Ability: Normal 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 current occupational status: unemployed How many Children do You have: 3 Other Information That Helps Us Care for You: No Feels Safe at Home: Yes Safety Concerns: Feels Safe At This Time Assistive Devices: CPAP, Denture - Upper and Denture - Lower Review of Systems Review of Systems: All systems reviewed & are unremarkable except as noted in HPI & below Physical Exam Constitutional: WD/WN, vitals as above well developed; no acute distress Neck: trachea midline, no thyromegaly Respiratory: able to speak in complete sentences; no labored breathing Auscultation: + diminished lung sounds and + crackles (b/l) Cardiovascular: Rate/Rhythm: regular rate and regular rhythm Heart Sounds: no murmur Vessels: + JVD Extremities: + edema (trace b/l pretibial edema) right sided pacer pocket with large hematoma, multiple stages of ecchymosis. Incision without erythema or drainage Gastrointestinal (Abdomen): normal bowel sounds, soft, nontender, no hepatosplenomegaly Neurologic: PERRL, EOMI, accommodation nl, no face palsy, no dysarthria Psychiatric: A+Ox3, euthymic affect Results & Data ([facility]) Vital Signs (Past 12 Hours) Vital Signs Temp Pulse Pulse Resp BP BP Pulse Ox 03/20/22 12:18 79 18 158/82 H 99 03/20/22 10:00 83 12 156/86 H 99 03/20/22 09:30 64 12 162/88 H 100 03/20/22 09:00 69 18 152/78 H 98 03/20/22 08:30 70 20 171/104 H 97 03/20/22 08:00 70 16 168/91 H 98 03/20/22 08:01 97 03/20/22 08:00 87 L 03/20/22 07:01 94 03/20/22 07:01 36.6 C 82 18 168/73 H 94 O2 Del Method O2 Flow Rate 03/20/22 12:18 Nasal Cannula 1 03/20/22 10:00 03/20/22 09:30 03/20/22 09:00 03/20/22 08:30 03/20/22 08:00 03/20/22 08:01 Nasal Cannula 2 03/20/22 08:00 Room Air 03/20/22 07:01 Room Air 03/20/22 07:01 Room Air Laboratory Results Cardiac Enzymes 03/20/22 03/20/22 Range/Units 06:38 07:40 AST 14 (13-39) U/L Troponin I High Sens 13.8 (0-14) pg/ml B-Natriuretic Peptide 2560 H (0-100) pg/ml Coagulation 03/20/22 Range/Units 07:40 B-Natriuretic Peptide 2560 H (0-100) pg/ml CBC 03/20/22 Range/Units 06:38 WBC 8.11 (4.8-10.8) K/ul RBC 2.83 L (3.93-5.22) M/uL Hgb 8.7 L (12.0-16.0) g/dl Hct 27.2 L (34.1-44.9) % Plt Count 231 (130-400) K/uL Neut # (Auto) 6.91 H (1.4-6.5) K/uL Lymph # (Auto) 0.69 L (1.2-3.4) K/uL Rice # (Auto) 0.29 (0.24-0.82) K/uL Eos # (Auto) 0.13 (0-0.50) K/uL Baso # (Auto) 0.05 (0-0.2) K/uL Comprehensive Metabolic Panel 03/20/22 Range/Units 06:38 Sodium 139 (136-145) mmol/L Potassium 4.4 (3.5-5.1) mmol/L Chloride 106 (98-107) mmol/L Carbon Dioxide 24 (21-32) mmol/L BUN 34 H (6-23) mg/dl Creatinine 1.24 H (0.6-1.2) mg/dl Glucose 225 H (70-99(Fasting)) mg/dl Calcium 9.2 (8.5-10.1) mg/dl Direct Bilirubin 0.1 (0-0.2) mg/dl AST 14 (13-39) U/L ALT 5 L (7-52) U/L Alkaline Phosphatase 59 (34-104) U/L Total Protein 7.3 (6.0-8.3) gm/dl Albumin 4.0 (3.4-5.0) gm/dl Diagnostic Findings Telemetry reviewed - Atrial paced, ventricular sensed in the 70's EKG on arrival reviewed - Sinus rhythm with sinus arrhythmia with short FL Right bundle branch block Left anterior fascicular block Bifascicular block Septal infarct (cited on or before 20-JUL-2021) T wave abnormality, consider lateral ischemia Chest X-Ray 03/20/22 07:10 SINGLE VIEW CHEST CLINICAL HISTORY: Dyspnea. FINDINGS: An AP, portable, upright chest radiograph is compared to study dated 03/06/2022. A 2-lead cardiac AICD is unchanged in position and partially obscures the right upper chest. The heart is enlarged noting atherosclerotic calcification of the thoracic aorta. There is pulmonary vascular congestion. Bilateral airspace opacities likely represent interstitial edema. A coronary artery stent is observed. Small pleural effusions are suspected. No pneumothorax is seen. The skeletal structures are osteopenic. The bony thorax is grossly intact. Cholecystectomy clips are noted in the right upper quadrant. IMPRESSION: 1. Cardiomegaly and AICD with evidence of congestive failure. 2. Bilateral airspace opacities likely represent pulmonary edema. Correlate clinically for evidence of a superimposed infectious/inflammatory pneumonitis. Radiographic follow-up to resolution is recommended. 3. Small pleural effusions. ACT 112: Negative or not required by law. Electronically signed by: Jorge Crowe M.D. 03/20/2022 7:40 AM Medications Administered Current Inpatient Medications Acetaminophen (Acetaminophen 325 Mg Tab) 650 mg PO Q4H PRN PRN Reason: Moderate Pain Stop: 04/19/22 11:37 Aspirin (Aspirin 81 Mg Ectab) 81 mg PO QAM [facility] Stop: 04/19/22 09:44 Last Admin: 03/20/22 12:20 Dose: 81 mg Atorvastatin Calcium (Atorvastatin 40 Mg Tab) 80 mg PO HS [facility] Stop: 04/19/22 20:59 Dextrose (Dextrose 50% 50 Ml Syringe) 25 - 50 ml IV UD PRN; Protocol PRN Reason: Hypoglycemia Protocol Stop: 04/19/22 11:37 Ezetimibe (Ezetimibe 10 Mg Tablet) 10 mg PO DAILY [facility] Stop: 04/20/22 08:59 Famotidine (Famotidine 20 Mg Tab) 20 mg PO DAILY [facility] Stop: 04/20/22 08:59 Ferrous Sulfate (Ferrous Sulfate 325 Mg Tab) 325 mg PO QAM [facility] Stop: 04/19/22 09:59 Last Admin: 03/20/22 12:20 Dose: 325 mg Furosemide (Furosemide 40 Mg/4 Ml Vial) 40 mg IV DAILY [facility] Stop: 03/22/22 08:59 Glucagon (Glucagon For Inj 1 Mg Vial) 1 mg SQ UD PRN; Protocol PRN Reason: Hypoglycemia Protocol Stop: 04/19/22 11:37 Glucose (Glucose 40% Gel 15 Gm Tube) 15 - 30 gm PO UD PRN; Protocol PRN Reason: Hypoglycemia Protocol Stop: 04/19/22 11:37 Glucose (Glucose 10 Tab/Tube) 4 - 8 tab PO UD PRN; Protocol PRN Reason: Hypoglycemia Treatment Stop: 04/19/22 11:37 Insulin Aspart (Insulin Aspart Per Unit) 0 units SC ACHS [facility] Stop: 04/19/22 11:37 Metoprolol Succinate (Metoprolol Succ 25mg Ext Rel Tab) 75 mg PO BID [facility] Stop: 04/19/22 09:59 Last Admin: 03/20/22 12:21 Dose: 75 mg Miscellaneous (Carbohydrates For Hypoglycemia ) 15 - 30 gm PO UD PRN PRN Reason: Hypoglycemia Protocol Stop: 04/19/22 11:37 Ondansetron HCl (Ondansetron Inj 2 Mg/Ml 2 Ml Vial) 4 mg IV Q4H PRN PRN Reason: Nausea And Vomiting Stop: 04/19/22 11:37 Oxybutynin Chloride (Oxybutynin Chloride 5 Mg Tab) 5 mg PO DAILY [facility] Stop: 04/19/22 09:59 Last Admin: 03/20/22 12:21 Dose: 5 mg Pantoprazole Sodium (Pantoprazole 40 Mg Tab) 40 mg PO DAILY [facility] Stop: 04/19/22 09:59 Last Admin: 03/20/22 12:20 Dose: 40 mg Sacubitril/Valsartan (Valsartan/Sacubitril 26/24mg Tab) 1 tab PO BID [facility] Stop: 04/19/22 09:59 Last Admin: 03/20/22 12:22 Dose: 1 tab Sertraline HCl (Sertraline Hcl 100 Mg Tablet) 100 mg PO QAM [facility] Stop: 04/19/22 09:59 Last Admin: 03/20/22 12:21 Dose: 100 mg Ticagrelor (Ticagrelor 90 Mg Tab) 90 mg PO BID [facility] Stop: 04/19/22 09:59 Last Admin: 03/20/22 12:22 Dose: 90 mg
[2022-03-20] MEDS ORDERED: VANCOMYCIN CONSULT ACTIVE PRN (14:02)
[2022-03-20] MEDS: INSULIN ASPART PER UNIT SC SCH ×3 (14:15→22:15)
[2022-03-20] MEDS: Patient's HEIGHT &/or WEIGHT Needed SCH ×2 (14:49→19:27)
[2022-03-20] MEDS ORDERED: VANCOMYCIN HCL 1,500 MG in SODIUM CHLORIDE 0.9% 500 ML IV SCH (15:00)
[2022-03-20] MEDS ORDERED: VANCOMYCIN HCL 1,500 MG in SODIUM CHLORIDE 0.9% 500 ML IV ONE ×2 (15:00→16:45)
[2022-03-20] MEDS ORDERED: cefTRIAXone SODIUM 1,000 MG in DEXTROSE 5% AD-VAN 50 ML IV SCH (15:00)
--- NOTE | 2022-03-20 15:00 | Pharmacy Report ---
Pharmacy PK ABX Note - Date of Service March 20, 2022 - Assessment and Plan Assessment 66 year old F receiving Vancomycin empirically. * PMHx significant for T2DM and multiple recent admissions. * Afebrile. No white count. * Blood cx pending. Plan Vancomycin * Loading dose: 1500 mg IV x 1 * Maintenance dose: 750 mg IV every 12 hours * Regimen is predicted to achieve target AUC/VIRA of 400-600 mg/L.hr * No level will be ordered unless therapy is to extend beyond 48 hours Pharmacy will continue to follow and will adjust dose/frequency as necessary. Thank you. Pharmacy has transitioned to AUC monitoring for vancomycin. AUC/VIRA is the preferred PK/PD target and is associated with decreased risk of nephrotoxicity compared to traditional trough targets.
[2022-03-20] MEDS: SPIRONOLACTONE 12.5 MG TAB PO SCH (15:06)
[2022-03-20] MEDS ORDERED: ATORVASTATIN 40 MG TAB PO SCH (21:00)
[2022-03-21] MEDS ORDERED: VANCOMYCIN HCL 750 MG in SODIUM CHLORIDE 0.9% 250 ML IV SCH
[2022-03-21 07:29] LABS: Hematocrit (blood only) 23.7 % (34.1-44.9); Hemoglobin 7.9 g/dl (12.0-16.0); Mean Corpuscular Hemoglobin 30.5 pg (25.0-34.0); Mean Corpuscular Hgb Conc 33.3 g/dL (32.0-36.0); Mean Corpuscular Volume 91.5 fL (80.0-100.0); Mean Platelet Volume 10.2 fL (9.4-12.3); Platelet Count 192 K/uL (130-400); RDW Coefficient of Variation 14.4 % (11.5-14.5); RDW Standard Deviation 47.2 fL (36.4-46.3); Red Blood Count 2.59 M/uL (3.93-5.22); White Blood Count 4.93 K/ul (4.8-10.8)
[2022-03-21 07:48] LABS: BUN Creatinine Ratio 25.7 (10-20); Calcium 8.6 mg/dl (8.5-10.1); Creatinine Clr Calc Pharmacy 51.3 ml/min; Est GFR (African American) 59.5 ml/min; Est GFR (Non-African American) 51.3 ml/min; Magnesium 1.7 mg/dl (1.7-2.4); Phosphorus 4.3 mg/dl (2.5-4.9); Potassium 3.8 mmol/L (3.5-5.1)
[2022-03-21] MEDS: INSULIN ASPART PER UNIT SC SCH ×2 (08:14→11:53)
[2022-03-21] MEDS: FERROUS SULFATE 325 MG TAB PO SCH (08:22)
[2022-03-21] MEDS: ASPIRIN 81 MG ECTAB PO SCH (08:22)
[2022-03-21] MEDS: VALSARTAN/SACUBITRIL 26/24MG TAB PO SCH (08:22)
[2022-03-21] MEDS: TICAGRELOR 90 MG TAB PO SCH (08:22)
[2022-03-21] MEDS: METOPROLOL SUCC 25MG EXT REL TAB PO SCH (08:22)
[2022-03-21] MEDS: SPIRONOLACTONE 12.5 MG TAB PO SCH (08:23)
[2022-03-21] MEDS: OXYBUTYNIN CHLORIDE 5 MG TAB PO SCH (08:23)
[2022-03-21] MEDS: SERTRALINE HCL 100 MG TABLET PO SCH (08:23)
[2022-03-21] MEDS: PANTOprazole 40 MG TAB PO SCH (08:23)
[2022-03-21] MEDS ORDERED: FUROSEMIDE 40 MG/4 ML VIAL IV SCH (09:00)
[2022-03-21] MEDS ORDERED: EZETIMIBE 10 MG TABLET PO SCH (09:00)
[2022-03-21] MEDS ORDERED: FAMOTIDINE 20 MG TAB PO SCH (09:00)
--- NOTE | 2022-03-21 10:50 | Hospitalist Progress Note ---
Date of Service March 21, 2022 Assessment & Plan (1) Acute on chronic heart failure with reduced ejection fraction and diastolic dysfunction: (2) Hypoxia: (3) CAD (coronary artery disease): (4) Ischemic cardiomyopathy: (5) Hypertension: Plan: -Admitted to PCU -pleural effusions on chest x-ray, weight gain, hypoxia of O2 sats to 88% on room air, all symptoms of acute CHF exacerbation -BNP is 2560 on admission -Patient reported dietary discretion General alert -Patient took a total of torsemide 30 mg prior to admission - Home regimen includes 20 mg on Tuesdays and and 10 mg all other days. - started V diuresis on admission and hold po torsemide -Check 2D echo, last showed EF of 20 to 25% in December 2021 Current Echo Normal LV wall thickness. There is diffuse hypokinesis to akinesis with focal akinesis of the anteroseptum and apex. LV systolic function is severely reduced. EF 20 to 25%. LA is moderately dilated. Mild mitral regurg. Mild pulmonary hypertension is present. Pulmonary artery systolic pressure is estimated at 39 mmHg. Compared to the report of the previous study dated December 2021 oh systolic function is unchanged. - Strict I/Os, fluid restriction of 1500 ml, daily weights,pt dry weight= 152 lbs -- Continue entresto, metoprolol, asa, brillinta, atorvastatin - cardiology consulted and following - 03/21 -patient is currently feeling much better, she is breathing comfortably on room air Discussed with cardiology, plan to discharge home on her home torsemide dose -Patient also had recently pacemaker placed by Dr. Rosenthal (2 weeks ago). History of pacer surgical site infection, status post removal (left side) -Current pacemaker site with hematoma, ecchymosis, minimal erythema at incision site. Cardiology was consulted and examined the site including Dr. Rosenthal -Blood cultures were obtained, and patient was started empirically on vancomycin and ceftriaxone -Last infection seems to be due to MSSA -Patient' pacer pocket hematoma looks somewhat improved today. Plan to continue with p.o. Keflex as outpatient. Follow-up with Dr. Rosenthal on March 26. Plan to follow final blood cultures as outpt (6) Anemia: Plan: - Hemoglobin ~ 8 - appears to be about her baseline, takes iron supplementation, continue (7) DMII (diabetes mellitus, type 2): Plan: -ISS with Accu-Cheks ACHS -Last A1c was 7.6 on 02/22/2022 -Holding metformin, farxgia, takes trulicity inj on Sundays - resume home meds on discharge (8) DAVID (obstructive sleep apnea): Plan: Encouraged to wear CPAP as above DVT PPx: - teds, scds, asa and brillinta CODE: Full code Dispo: Plan to DC home Admission and Anticipated Discharge Date Admission Date: March 20, 2022 Subjective Patient seen in follow-up of CHF exacerbation, hypoxia, shortness of breath Also recently placed pacer, with pocket hematoma noted , patient has history of pacer surgical site infection s/p removal (left side) Currently she is lying in bed, in no acute distress, comfortable and feeling well She is breathing comfortably on room air Currently without any chest pain or palpitations Denies fevers chills Denies abdominal pain nausea vomiting Review of Systems Review of Systems: All systems reviewed & are unremarkable except as noted in Subjective Physical Exam Physical Exam: General: awake, alert, elderly female, in no acute distress, comfortable, and conversant, breathing on RA, sats 93% Head: Normocephalic, atraumatic ENT: PERRL, EOMI Chest: +right chest wall hematoma overlying pacemaker site, + ecchymosis in cision is healing, faint basilar crackles, no wheezing Cardiac: Regular rate and rhythm, no murmur, no JVD Abdominal: NABS x 4 quadrants, soft, nondistended, nontender to palpation, no rebound or guarding Extremities: Normal inspection, + minimal peripheral edema BLE, no erythema Psych: Normal mood and affect Neuro: AAO x 3, answers questions appropriately, speech is clear, moves extremities Results & Data Results & Data ([facility]) Vital Signs (Past 12 Hours) Vital Signs Temp Pulse Pulse Resp BP BP Pulse Ox 03/21/22 07:57 37.0 C 67 20 132/75 93 03/21/22 02:41 37.0 C 88 18 162/70 H 91 03/20/22 23:25 75 O2 Del Method 03/21/22 07:57 Room Air 03/21/22 02:41 Room Air 03/20/22 23:25 Laboratory Results 12/29/22 12/29/22 12/29/22 Range/Units 07:22 06:53 06:53 WBC 4.93 (4.8-10.8) K/ul RBC 2.59 L (3.93-5.22) M/uL Hgb 7.9 L (12.0-16.0) g/dl Hct 23.7 L (34.1-44.9) % MCV 91.5 (80.0-100.0) fL MCH 30.5 (25.0-34.0) pg MCHC 33.3 (32.0-36.0) g/dL RDW Std Deviation 47.2 H (36.4-46.3) fL RDW Coeff of Ronaldo 14.4 (11.5-14.5) % Plt Count 192 (130-400) K/uL MPV 10.2 (9.4-12.3) fL Sodium 139 (136-145) mmol/L Potassium 3.8 (3.5-5.1) mmol/L Chloride 106 (98-107) mmol/L Carbon Dioxide 27 (21-32) mmol/L Anion Gap 6 (3-11) BUN 29 H (6-23) mg/dl Creatinine 1.13 (0.6-1.2) mg/dl Est Cr Clr Drug Dosing 51.3 ml/min Est GFR ( Amer) 59.5 ml/min Est GFR (Non-Af Amer) 51.3 ml/min BUN/Creatinine Ratio 25.7 H (10-20) Glucose 154 H (70-99(Fasting)) mg/dl POC Glucose 156 H (70-99) mg/dl Calcium 8.6 (8.5-10.1) mg/dl Phosphorus 4.3 (2.5-4.9) mg/dl Magnesium 1.7 (1.7-2.4) mg/dl 03/20/22 03/20/22 03/20/22 Range/Units 22:13 18:10 12:04 WBC (4.8-10.8) K/ul RBC (3.93-5.22) M/uL Hgb (12.0-16.0) g/dl Hct (34.1-44.9) % MCV (80.0-100.0) fL MCH (25.0-34.0) pg MCHC (32.0-36.0) g/dL RDW Std Deviation (36.4-46.3) fL RDW Coeff of Ronaldo (11.5-14.5) % Plt Count (130-400) K/uL MPV (9.4-12.3) fL Sodium (136-145) mmol/L Potassium (3.5-5.1) mmol/L Chloride (98-107) mmol/L Carbon Dioxide (21-32) mmol/L Anion Gap (3-11) BUN (6-23) mg/dl Creatinine (0.6-1.2) mg/dl Est Cr Clr Drug Dosing ml/min Est GFR ( Amer) ml/min Est GFR (Non-Af Amer) ml/min BUN/Creatinine Ratio (10-20) Glucose (70-99(Fasting)) mg/dl POC Glucose 134 H 139 H 158 H (70-99) mg/dl Calcium (8.5-10.1) mg/dl Phosphorus (2.5-4.9) mg/dl Magnesium (1.7-2.4) mg/dl Medications Administered Current Inpatient Medications Acetaminophen (Acetaminophen 325 Mg Tab) 650 mg PO Q4H PRN PRN Reason: Moderate Pain Stop: 04/19/22 11:37 Aspirin (Aspirin 81 Mg Ectab) 81 mg PO QAM [facility] Stop: 04/19/22 09:44 Last Admin: 03/21/22 08:22 Dose: 81 mg Atorvastatin Calcium (Atorvastatin 40 Mg Tab) 80 mg PO HS [facility] Stop: 04/19/22 20:59 Last Admin: 03/20/22 21:44 Dose: 80 mg Cephalexin HCl (Cephalexin 250 Mg Cap) 250 mg PO QID [facility] Stop: 03/28/22 12:59 Dextrose (Dextrose 50% 50 Ml Syringe) 25 - 50 ml IV UD PRN; Protocol PRN Reason: Hypoglycemia Protocol Stop: 04/19/22 11:37 Ezetimibe (Ezetimibe 10 Mg Tablet) 10 mg PO DAILY [facility] Stop: 04/20/22 08:59 Last Admin: 03/21/22 08:22 Dose: 10 mg Famotidine (Famotidine 20 Mg Tab) 20 mg PO DAILY [facility] Stop: 04/20/22 08:59 Last Admin: 03/21/22 08:22 Dose: 20 mg Ferrous Sulfate (Ferrous Sulfate 325 Mg Tab) 325 mg PO QAM [facility] Stop: 04/19/22 09:59 Last Admin: 03/21/22 08:22 Dose: 325 mg Furosemide (Furosemide 40 Mg/4 Ml Vial) 40 mg IV DAILY [facility] Stop: 03/22/22 08:59 Last Admin: 03/21/22 08:23 Dose: 40 mg Glucagon (Glucagon For Inj 1 Mg Vial) 1 mg SQ UD PRN; Protocol PRN Reason: Hypoglycemia Protocol Stop: 04/19/22 11:37 Glucose (Glucose 40% Gel 15 Gm Tube) 15 - 30 gm PO UD PRN; Protocol PRN Reason: Hypoglycemia Protocol Stop: 04/19/22 11:37 Glucose (Glucose 10 Tab/Tube) 4 - 8 tab PO UD PRN; Protocol PRN Reason: Hypoglycemia Treatment Stop: 04/19/22 11:37 Insulin Aspart (Insulin Aspart Per Unit) 0 units SC ACHS [facility] Stop: 04/19/22 11:37 Last Admin: 03/21/22 08:14 Dose: 1 units Metoprolol Succinate (Metoprolol Succ 25mg Ext Rel Tab) 75 mg PO BID [facility] Stop: 04/19/22 09:59 Last Admin: 03/21/22 08:22 Dose: 75 mg Miscellaneous (Carbohydrates For Hypoglycemia ) 15 - 30 gm PO UD PRN PRN Reason: Hypoglycemia Protocol Stop: 04/19/22 11:37 Ondansetron HCl (Ondansetron Inj 2 Mg/Ml 2 Ml Vial) 4 mg IV Q4H PRN PRN Reason: Nausea And Vomiting Stop: 04/19/22 11:37 Oxybutynin Chloride (Oxybutynin Chloride 5 Mg Tab) 5 mg PO DAILY [facility] Stop: 04/19/22 09:59 Last Admin: 03/21/22 08:23 Dose: 5 mg Pantoprazole Sodium (Pantoprazole 40 Mg Tab) 40 mg PO DAILY [facility] Stop: 04/19/22 09:59 Last Admin: 03/21/22 08:23 Dose: 40 mg Sacubitril/Valsartan (Valsartan/Sacubitril 26/24mg Tab) 1 tab PO BID [facility] Stop: 04/19/22 09:59 Last Admin: 03/21/22 08:22 Dose: 1 tab Sertraline HCl (Sertraline Hcl 100 Mg Tablet) 100 mg PO QAM [facility] Stop: 04/19/22 09:59 Last Admin: 03/21/22 08:23 Dose: 100 mg Spironolactone (Spironolactone 12.5 Mg Tab) 12.5 mg PO DAILY [facility] Stop: 04/19/22 13:59 Last Admin: 03/21/22 08:23 Dose: 12.5 mg Ticagrelor (Ticagrelor 90 Mg Tab) 90 mg PO BID [facility] Stop: 04/19/22 09:59 Last Admin: 03/21/22 08:22 Dose: 90 mg (1) Hypertension Hypertension type: essential hypertension Qualified Code(s): I10 - Essential (primary) hypertension
[2022-03-21] MEDS ORDERED: MAGNESIUM OXIDE 400 MG TAB PO SCH (11:00)
--- NOTE | 2022-03-21 11:25 | Cardiology Progress Note ---
Date of Service March 21, 2022 Assessment & Plan (1) Acute on chronic heart failure with reduced ejection fraction and diastolic dysfunction: (2) Ischemic cardiomyopathy: (3) Pacemaker pocket hematoma: Plan Patient admitted for worsening SOB consistent with Acute HFrEF exacerbation with hypoxia and b/l pleural effusions after significant dietary indiscretion. Symptoms improved with IV diuresis over the last 24 hours. Back to baseline volume status. Continue spironolactone 12.5 mg She already received IV furosemide this morning. Plan to discharge on torsemide 10 mg alternating with 20 mg every other day. Prior home dose. We had a long discussion today about adhering to low sodium diet and fluid restriction of 1500 ml (about 50 ounces) Daily weight with standing scale In regards to her pacer pocket hematoma, slight improvement noted today. No erythema or drainage. Vanco and rocephin discontinued. Transitioned to Keflex and continue as outpatient. Will arrange close follow up at [facility] with EP to monitor pocket site. Continue all other home medications including ASA, Brilinta, statin, Entresto Case discussed with Dr. Delcid. Admission and Anticipated Discharge Date Admission Date: March 20, 2022 Supervising Physician Co-Signing Physician Notes Supervising Physician Attestation: I have personally performed a history and physical examination on the patient. I agree with the physician mailing machine assistant's findings and plan as documented with the following additions. Subjective: Patient denies any fevers or chills. Shortness of breath improved. Exam: Cardiovascular: Regular rhythm, no murmurs rubs or gallops, no edema Pulmonary: Clear to auscultation bilaterally Chest: Right infraclavicular pocket hematoma, with surrounding ecchymosis, incision clean dry and intact without drainage, slightly less prominent size than 03/20/2022 Data: Hemoglobin 7.9 compared to 8.7 yesterday, and 9.5 on 02/22/2022 Assessment and Plan: Problems as noted above Discontinue IV furosemide. Discharged on torsemide 20 mg alternating with 10 mg Continue prior to hospital medications including aspirin and Brilinta Plan for 10-day course of cephalexin 250 mg 4 times daily. Stable for discharge. Wound check visit with Dr. Rosenthal, next week Friday03/26/22 7 :30 am at . Wilmer Delcid, DO Subjective Patient resting in bed comfortably. SOB improved. Oxygen levels improved. She feels back to "baseline". Cough resolved. Slept well last night without orthopnea. No chest pain. Right side pacer pocket without erythema or drainage. Large hematoma persists, but possibly slightly better than yesterday. No pain. Blood cultures pending. no fever or chills. Review of Systems Review of Systems: All systems reviewed & are unremarkable except as noted in HPI & below Physical Exam Constitutional: WD/WN, vitals as above well developed; no acute distress Neck: trachea midline, no thyromegaly Respiratory: able to speak in complete sentences; no labored breathing Auscultation: + crackles (faint bibasilar crackles); no rhonchi Cardiovascular: Rate/Rhythm: regular rate and regular rhythm Heart Sounds: no murmur Vessels: no JVD Extremities: no edema Gastrointestinal (Abdomen): normal bowel sounds, soft, nontender, no hepatosplenomegaly Neurologic: PERRL, EOMI, accommodation nl, no face palsy, no dysarthria Psychiatric: A+Ox3, euthymic affect Results & Data ([facility]) Vital Signs (Past 12 Hours) Vital Signs Temp Pulse Pulse Resp BP BP Pulse Ox 03/21/22 07:57 37.0 C 67 20 132/75 93 03/21/22 02:41 37.0 C 88 18 162/70 H 91 03/20/22 23:25 75 O2 Del Method 03/21/22 07:57 Room Air 03/21/22 02:41 Room Air 03/20/22 23:25 Laboratory Results CBC 03/21/22 Range/Units 06:53 WBC 4.93 (4.8-10.8) K/ul RBC 2.59 L (3.93-5.22) M/uL Hgb 7.9 L (12.0-16.0) g/dl Hct 23.7 L (34.1-44.9) % Plt Count 192 (130-400) K/uL Comprehensive Metabolic Panel 03/21/22 Range/Units 06:53 Sodium 139 (136-145) mmol/L Potassium 3.8 (3.5-5.1) mmol/L Chloride 106 (98-107) mmol/L Carbon Dioxide 27 (21-32) mmol/L BUN 29 H (6-23) mg/dl Creatinine 1.13 (0.6-1.2) mg/dl Glucose 154 H (70-99(Fasting)) mg/dl Calcium 8.6 (8.5-10.1) mg/dl Intake and Output 03/20/22 03/21/22 03/21/22 22:59 06:59 14:59 Intake Total 1300 / 1665 365 / 1665 Output Total 2900 / 3300 400 / 3300 Balance -1600 / -1635 -35 / -1635 Intake: IV 580 / 845 265 / 845 Vancomycin HCl 750 mg In Sodium 265 / 265 Chloride 0.9% 250 ml @ 200 mls /hr IV Q12H [facility] Rx#:[id number] Vancomycin HCl 1,500 mg In 530 / 530 Sodium Chloride 0.9% 500 ml @ 200 mls/hr IV NOW ONE Rx#: [id number] cefTRIAXone SODIUM 1,000 mg In 50 / 50 Dextrose 5% Ad-Van 50 ml @ 100 mls/hr IV Q24H [facility] Rx#:[id number] Oral 720 / 820 100 / 820 Output: Urine Amount (Catheter) 2900 / 3300 400 / 3300 Lerner/Indwelling 2900 / 3300 400 / 3300 Other: Weight 72.6 kg Weight Measurement Method Built in [facility] Patient Weight 03/22/22 06:59 Weight 72.6 kg Diagnostic Findings telemetry reviewed: NSR in the 's with intermittent pacing echo report from this admission LVEF severely reduced at 20-25% Mild MR Mild pulm hypertension with estimated pulm pressures at 39 mmHg Compared with prior study, no significant changes noted Medications Administered Current Inpatient Medications Acetaminophen (Acetaminophen 325 Mg Tab) 650 mg PO Q4H PRN PRN Reason: Moderate Pain Stop: 04/19/22 11:37 Aspirin (Aspirin 81 Mg Ectab) 81 mg PO QAM [facility] Stop: 04/19/22 09:44 Last Admin: 03/21/22 08:22 Dose: 81 mg Atorvastatin Calcium (Atorvastatin 40 Mg Tab) 80 mg PO HS [facility] Stop: 04/19/22 20:59 Last Admin: 03/20/22 21:44 Dose: 80 mg Cephalexin HCl (Cephalexin 250 Mg Cap) 250 mg PO QID [facility] Stop: 03/28/22 12:59 Dextrose (Dextrose 50% 50 Ml Syringe) 25 - 50 ml IV UD PRN; Protocol PRN Reason: Hypoglycemia Protocol Stop: 04/19/22 11:37 Ezetimibe (Ezetimibe 10 Mg Tablet) 10 mg PO DAILY [facility] Stop: 04/20/22 08:59 Last Admin: 03/21/22 08:22 Dose: 10 mg Famotidine (Famotidine 20 Mg Tab) 20 mg PO DAILY [facility] Stop: 04/20/22 08:59 Last Admin: 03/21/22 08:22 Dose: 20 mg Ferrous Sulfate (Ferrous Sulfate 325 Mg Tab) 325 mg PO QAM [facility] Stop: 04/19/22 09:59 Last Admin: 03/21/22 08:22 Dose: 325 mg Furosemide (Furosemide 40 Mg/4 Ml Vial) 40 mg IV DAILY [facility] Stop: 03/22/22 08:59 Last Admin: 03/21/22 08:23 Dose: 40 mg Glucagon (Glucagon For Inj 1 Mg Vial) 1 mg SQ UD PRN; Protocol PRN Reason: Hypoglycemia Protocol Stop: 04/19/22 11:37 Glucose (Glucose 40% Gel 15 Gm Tube) 15 - 30 gm PO UD PRN; Protocol PRN Reason: Hypoglycemia Protocol Stop: 04/19/22 11:37 Glucose (Glucose 10 Tab/Tube) 4 - 8 tab PO UD PRN; Protocol PRN Reason: Hypoglycemia Treatment Stop: 04/19/22 11:37 Insulin Aspart (Insulin Aspart Per Unit) 0 units SC ACHS [facility] Stop: 04/19/22 11:37 Last Admin: 03/21/22 08:14 Dose: 1 units Magnesium Oxide (Magnesium Oxide 400 Mg Tab) 400 mg PO BID [facility] Stop: 04/20/22 10:59 Metoprolol Succinate (Metoprolol Succ 25mg Ext Rel Tab) 75 mg PO BID [facility] Stop: 04/19/22 09:59 Last Admin: 03/21/22 08:22 Dose: 75 mg Miscellaneous (Carbohydrates For Hypoglycemia ) 15 - 30 gm PO UD PRN PRN Reason: Hypoglycemia Protocol Stop: 04/19/22 11:37 Ondansetron HCl (Ondansetron Inj 2 Mg/Ml 2 Ml Vial) 4 mg IV Q4H PRN PRN Reason: Nausea And Vomiting Stop: 04/19/22 11:37 Oxybutynin Chloride (Oxybutynin Chloride 5 Mg Tab) 5 mg PO DAILY [facility] Stop: 04/19/22 09:59 Last Admin: 03/21/22 08:23 Dose: 5 mg Pantoprazole Sodium (Pantoprazole 40 Mg Tab) 40 mg PO DAILY [facility] Stop: 04/19/22 09:59 Last Admin: 03/21/22 08:23 Dose: 40 mg Sacubitril/Valsartan (Valsartan/Sacubitril 26/24mg Tab) 1 tab PO BID [facility] Stop: 04/19/22 09:59 Last Admin: 03/21/22 08:22 Dose: 1 tab Sertraline HCl (Sertraline Hcl 100 Mg Tablet) 100 mg PO QAM [facility] Stop: 04/19/22 09:59 Last Admin: 03/21/22 08:23 Dose: 100 mg Spironolactone (Spironolactone 12.5 Mg Tab) 12.5 mg PO DAILY [facility] Stop: 04/19/22 13:59 Last Admin: 03/21/22 08:23 Dose: 12.5 mg Ticagrelor (Ticagrelor 90 Mg Tab) 90 mg PO BID [facility] Stop: 04/19/22 09:59 Last Admin: 03/21/22 08:22 Dose: 90 mg
[2022-03-21] MEDS ORDERED: cephALEXin 250 MG CAP PO SCH (13:00)
--- NOTE | 2022-03-21 13:27 | Discharge Summary ---
Date of Service March 21, 2022 Admission HPI Per Admitting Provider This is a 66-year-old female with PMHx of CAD sp stents, hx of STEMI, EF of 35% on most recent echo, chronic systolic CHF, sinus bradycardia, recent ICD placement on 10/29/21 complicated by site infection/dehiscence and subsequent removal of pacemaker , temporary lifeVest, and then recent replacement with a ICD/pacemaker by Dr. Rosenthal on 03/06/22. She has had multiple admissions for CHF exacerbation in the past year. Other PMHx includes type 2 diabetes, diabetic polyneuropathy, DAVID supposed to be on CPAP, but is not using since her machine was recalled; history of acute respiratory failure with hypoxia, GERD, CKD stage III, anemia, depression, and has had COVID infection. Today the patient presents for worsening shortness of breath. Normally weighs 152. Has not weighed herself because of being on holiday and "pigging out" but was planning on starting to weigh herself this week again. Yesterday the Pt had excess fluids: this included 2 bottles of water 16.9 oz each, 3 bottles N[employer] strawberry lemonade 16.9 oz each, a 12 oz cup of coffee, a bowl of buttermilk with potato chips, and then drank a 12 oz cup of buttermilk mixed with pepper in honor of her father. She ate grilled cheese and tomato soup for lunch and had spaghetti last evening with homemade sauce. She reports noticing swelling in her feet and ankles, her rings are tight today and could hear the fluid in her chest. Took a total of 30 mg of torsemide yesterday - her normal 20 mg in the morning and 10 mg extra at night due to worsening shortness of breath. Pt presents here with her daughter as she does not feel the fluid is gone. Pt reports having an episode of diarrhea within the past day. Denies any other complaints. Admission Exam Per Admitting Provider General: awake, alert, no apparent distress Head: Normocephalic, atraumatic ENT: PERRL, EOMI, no pharyngeal exudate, mucous membranes moist, + missing multiple teeth Chest: + large right chest wall hematoma overlying pacemaker placement, ecchymosis is resolving, incision is healing, + on 2 L via NC, absent breath sounds at bases bilaterally, faint crackles, no wheezing or rales. Cardiac: Regular rate and rhythm, no murmur, no JVD, normal peripheral pulses, good capillary refill Abdominal: NABS x 4 quadrants, soft, nondistended, nontender to palpation, no rebound or guarding Extremities: Normal inspection, 2+ nonpitting peripheral edema BLE, no erythema, calfs nontender to palpation Psych: Normal mood and affect Neuro: AAO x 3, strength intact bilaterally and rated 5/5, no motor deficits, speech is clear, no peripheral sensory deficits Principal Diagnosis CHF exacerbation, hypoxia Pacer pocket hematoma Discharge Exam General: awake, alert, elderly female, in no acute distress, comfortable, and conversant, breathing on RA, sats 93% Head: Normocephalic, atraumatic ENT: PERRL, EOMI Chest: +right chest wall hematoma overlying pacemaker site, + ecchymosis incision is healing, faint basilar crackles, no wheezing Cardiac: Regular rate and rhythm, no murmur, no JVD Abdominal: NABS x 4 quadrants, soft, nondistended, nontender to palpation, no rebound or guarding Extremities: Normal inspection, + minimal peripheral edema BLE, no erythema Psych: Normal mood and affect Neuro: AAO x 3, answers questions appropriately, speech is clear, moves extremities Discharge Data Allergies Allergy/AdvReac Type Severity Reaction Status Date / Time hydrocodone Allergy Intermediate Hives Verified 03/06/22 10:26 pine nut Allergy Intermediate Hives Verified 03/06/22 10:26 empagliflozin AdvReac Intermediate DIARRHEA--PER Verified 03/06/22 10:26 [From Jardiance] GMG lactose AdvReac Intermediate Gastrointestinal Verified 03/06/22 10:26 Upset semaglutide AdvReac Intermediate Diarrhea Verified 03/06/22 10:26 vaccine adjuvant system, AdvReac Intermediate LETHARGIC, Verified 03/06/22 10:26 [id number] liposomal PAIN, [From Shingrix (PF)] FATIGUE varicella-zoster virus AdvReac Intermediate LETHARGIC, Verified 03/06/22 10:26 glycoprotein E, recombinant PAIN, [From Shingrix (PF)] FATIGUE Consultations 03/20/22 08:33 ED Decision to Admit Stat 03/20/22 11:38 Consult Cardiology Routine Hospital Course (1) Acute on chronic heart failure with reduced ejection fraction and diastolic dysfunction: (2) Hypoxia: (3) CAD (coronary artery disease): (4) Ischemic cardiomyopathy: (5) Hypertension: -Admitted to PCU -pleural effusions on chest x-ray, weight gain, hypoxia of O2 sats to 88% on room air, all symptoms of acute CHF exacerbation -BNP is 2560 on admission -Patient reported dietary discretion General alert -Patient took a total of torsemide 30 mg prior to admission - Home regimen includes 20 mg on Tuesdays and and 10 mg all other days. - started V diuresis on admission and hold po torsemide -Check 2D echo, last showed EF of 20 to 25% in December 2021 Current Echo Normal LV wall thickness. There is diffuse hypokinesis to akinesis with focal akinesis of the anteroseptum and apex. LV systolic function is severely reduced. EF 20 to 25%. LA is moderately dilated. Mild mitral regurg. Mild pulmonary hypertension is present. Pulmonary artery systolic pressure is estimated at 39 mmHg. Compared to the report of the previous study dated December 2021 oh systolic function is unchanged. - Strict I/Os, fluid restriction of 1500 ml, daily weights,pt dry weight= 152 lbs -- Continue entresto, metoprolol, asa, brillinta, atorvastatin - cardiology consulted and following - 03/21 -patient is currently feeling much better, she is breathing comfortably on room air Discussed with cardiology, plan to discharge home on her home torsemide dose -Patient also had recently pacemaker placed by Dr. Rosenthal (2 weeks ago). History of pacer surgical site infection, status post removal (left side) -Current pacemaker site with hematoma, ecchymosis, minimal erythema at incision site. Cardiology was consulted and examined the site including Dr. Rosenthal -Blood cultures were obtained, and patient was started empirically on vancomycin and ceftriaxone -Last infection seems to be due to MSSA -Patient' pacer pocket hematoma looks somewhat improved today. Plan to continue with p.o. Keflex as outpatient. Follow-up with Dr. Rosenthal on March 26. Plan to follow final blood cultures as outpt (6) Anemia: - Hemoglobin ~ 8 - appears to be about her baseline, takes iron supplementation, continue (7) DMII (diabetes mellitus, type 2): -ISS with Accu-Cheks ACHS -Last A1c was 7.6 on 02/22/2022 -Holding metformin, farxgia, takes trulicity inj on Sundays - resume home meds on discharge (8) DAVID (obstructive sleep apnea): Encouraged to wear CPAP as above Total Time Total Time Spent Total Time Spent (In Minutes): 40 Discharge Plan Discharge Items Patient Disposition: Home - Self-Care Reason For Visit: SOB, EDEMA Discharge Diagnosis: CHF exacerbation, hypoxia Pacer pocket hematoma Activity: Per Instructions section Non-emergency contact: Primary Care Provider and Stock Holder Call non-emergency contact if: you have any medication questions and your symptoms worsen Follow-up/Referrals: Scarlett Pires MD [Primary Care Provider] - Diet: Heart Healthy and Low Sodium (2gm) Fluids: 1500ml (6 cups) Addtl Attending Provider Instructions: Follow-up with primary care doctor within 1 week, follow-up with cardiology as scheduled. You have appointment with Dr. Rosenthal on March 26 at 7:30 AM at [facility]. As discussed, make sure that your diet is low in sodium, and fluid is restricted to 1.5 L a day. You should be weighing yourself daily and record your numbers. Read further instructions below. Continue home medications, including aspirin and Brilinta. Continue torsemide, alternating 20 mg and 10 mg, just like you did before. Finish antibiotic course with cephalexin as prescribed. Recommended to take probiotic for next 1 to 2 weeks. Addtl Recreational Therapy Technician Provider Instructions: Call your Primary Care doctor if any of the following symptoms or problems start or get worse: * Shortness of breath or difficulty breathing * Wake up at night short of breath * Chest pain * Cough * Swelling of your hands, feet, or legs * More fatigued or tired with your normal activity * Palpitations - sudden fast heart beats WEIGHT * Weigh yourself every morning after using the bathroom. * Use the same scale. * Wear the same amount of clothing. * Write your weight down on a chart. * Call your Primary Care doctor if you gain more than 2-3 pounds in 1-2 days. MEDICATIONS * Use this discharge instruction sheet for medication instructions. * Take your medications at the time your doctor ordered. * Do not skip a dose of your medicines. * If you miss a dose of medicine, take it as soon as possible, but DO NOT DOUBLE A DOSE. * Read your medicine information when you get home. * Know all of the side effects of your medicine. If in doubt, ask your pharmacist * Call your Primary Care doctor's office if you have any side effects. * Be sure all of your doctors know what medicine and herbs you take (including cold, flu, and herbal medicine). Take the following with you to your follow-up doctor appointments: * Weight Chart * Medication List * List of questions Do not drink excessive alcohol, beer or wine. Pending Studies at Discharge: Yes Studies:: Final blood cultures Stand-Alone Forms: [facility], Smoking Cessation Medications and DC Order Prescriptions: New cephalexin 500 mg capsule 500 mg PO QID 10 Days Qty: 40 0RF Continued Trulicity 0.75 mg/0.5 mL Pen Injector 0.75 mg SUBCUT WK atorvastatin [Lipitor] 80 mg Tablet 80 mg PO HS 60 Days Qty: 30 1RF sertraline [Zoloft] 100 mg tablet 100 mg PO QAM 60 Days Qty: 30 1RF aspirin [Kyle Low Dose Aspirin] 81 mg Tablet,Delayed Release (Dr/Ec) 81 mg PO QAM 60 Days Qty: 30 1RF pantoprazole [Protonix] 20 mg tablet,delayed release (DR/EC) 20 mg PO DAILY 60 Days Qty: 30 1RF nitroglycerin [Nitrostat] 0.4 mg tablet, sublingual 0.4 mg sublingual UD PRN (Reason: Chest Pain) 60 Days Qty: 90 1RF oxybutynin chloride 5 mg Tablet 5 mg PO DAILY 60 Days Qty: 30 1RF metformin 500 mg tablet extended release 24 hr 500 mg PO BIDM 60 Days Qty: 60 1RF ezetimibe 10 mg tablet 10 mg PO DAILY 60 Days Qty: 30 1RF Brilinta 90 mg Tablet 90 mg PO BID Qty: 60 1RF Entresto 24-26 mg tablet 1 tab PO BID ferrous sulfate 325 mg (65 mg iron) Tablet,Delayed Release (Dr/Ec) 325 mg PO QAM Qty: 30 0RF metoprolol succinate 50 mg tablet extended release 24 hr 75 mg PO BID famotidine [Pepcid] 20 mg tablet 20 mg PO DAILY Farxiga 10 mg Tablet 10 mg PO DAILY torsemide 10 mg tablet See Rx Instructions .ROUTE .COMPLEX Qty: 60 0RF Rx Instructions: Take 20mg on Tuesdays and . Take 10mg on other days. Discharge Orders: Discharge Order (Routine); Ordered 03/21/22 Ordered By: Jose Chiu Admission Data Admit Date/Time: 03/20/22 08:56 Attending Provider: Jose Chiu Admit Provider: Jose Chiu Primary Care Provider: Scarlett Pires Other Providers: Jose Chiu ; Wilmer Delcid
[2022-03-21] MEDS ORDERED: ADVANCED PROBIOTIC 1250 MG CAPSULE PO SCH (13:30)
[2022-03-21] MEDS ORDERED: cephALEXin 250 MG CAP PO ONE (14:09)
== END 2022-03-21 14:48 | disposition home or self-care (01) | DRG 291 ==
LOC: ED 07:01 → EDINP 08:56 → 2E 22:21